=== PATIENT | male | born 1960 | race Hispanic/Latino ===

== ENCOUNTER 2017-03-10 16:53 | Inpatient (IN) | payer MEDICAID ==
[2017-03-10 17:11] VITALS: BMI 26.6
[2017-03-10] MEDS ORDERED: Vancomycin 500 mg Inj IVPB STA (17:15)
[2017-03-10] MEDS ORDERED: Piperacill/Tazo 3.375gm in Dex 3.375 GM/50 ML BAG IVPB STA (17:15)
--- NOTE | 2017-03-10 17:26 | C.PDOC ---
History Of Present Illness 56 year old female presents to the ED with concerns of an "infected [left] leg" for approximately three weeks. Patient states three weeks ago he fell and scrapped his left leg and leg pain has been worse over the last few days. He denies any fever, nausea, vomiting, or diarrhea. Time Seen by Provider: 03/10/17 17:11 Chief Complaint (Nursing): Abnormal Skin Integrity History Per: Patient History/Exam Limitations: no limitations Onset/Duration Of Symptoms: Persistent (3 weeks), Worse Since (the last few days ) Current Symptoms Are (Timing): Still Present Location Of Injury: Left: Leg Recent travel outside of the [place]: No Past Medical History Reviewed: Historical Data, Nursing Documentation, Vital Signs Vital Signs: Last Vital Signs Temp 98.3 F 03/10/17 17:12 Pulse 88 03/10/17 17:12 Resp 18 03/10/17 17:12 BP 101/63 03/10/17 17:12 Pulse Ox 96 03/10/17 17:30 - Medical History PMH: Asthma, CHF (3 YEARS), COPD, Diabetes, Emphysema, Fractures (LEFT SHOULDER ORIF LEFT ELBOW RIGHT SHOULDER), Gastritis (FROM MEDS), HTN, Peripheral Edema ( SOMETIMES NOT AT PRESENT), Pneumonia, Sleep Apnea (NO C PAP) Family History: States: Other Other Family History: non-contributory - Social History Hx Tobacco Use: No Hx Alcohol Use: Yes - Immunization History Hx Tetanus Toxoid Vaccination: Yes Hx Influenza Vaccination: Yes Hx Pneumococcal Vaccination: Yes Review Of Systems Except As Marked, All Systems Reviewed And Found Negative. Cardiovascular: Negative for: Chest Pain Respiratory: Negative for: Shortness of Breath Physical Exam - Physical Exam Appears: Non-toxic, No Acute Distress Skin: Warm, Dry Head: Atraumatic, Normacephalic Eye(s): bilateral: Normal Inspection, PERRL, EOMI Oral Mucosa: Moist Neck: Supple Chest: Symmetrical, No Deformity Cardiovascular: Rhythm Regular Respiratory: Normal Breath Sounds, No Accessory Muscle Use, No Rhonchi, No Wheezing Gastrointestinal/Abdominal: Soft, No Tenderness, No Distention, No Guarding, No Rebound Extremity: Normal ROM, No Tenderness, Capillary Refill (good capillary refill, less than 2 seconds ), No Swelling, Other (Pitting edema 2+ bilateral lower legs. 2x4 cm wound on the medial aspect of the left leg, purulent in discharge. Left leg with chronic appearing ulcers. Left lower leg erythema and warmth. ) Pulses: Left Dorsalis Pedis: Normal, Right Dorsalis Pedis: Normal Neurological/Psych: Oriented x3, Normal Speech, Normal Cognition, Normal Cranial Nerves, Normal Motor, Normal Sensation, Normal Reflexes ED Course And Treatment - Laboratory Results Result Diagrams: 03/10/17 18:01 03/10/17 18:01 O2 Sat by Pulse Oximetry: 96 (room air ) Medical Decision Making Medical Decision Makin disc w Dr Cortez who will admit. req art duplex tomorrow am Disposition - Disposition Disposition: HOSPITALIZED Disposition Time: 18:22 Condition: STABLE - Clinical Impression Clinical Impression: Wound infection, Cellulitis - Scribe Statement The provider has reviewed the documentation as recorded by the Scribe Marie Persaud All medical record entries made by the Tyroneibeddie were at my direction and personally dictated by me. I have reviewed the chart and agree that the record accurately reflects my personal performance of the history, physical exam, medical decision making, and the department course for this patient. I have also personally directed, reviewed, and agree with the discharge instructions and disposition.
[2017-03-10 18:08] LABS: BASO % 0.3 % (0.0-2.0); EOS # 0.1 K/uL (0.0-0.7); EOS % 0.7 % (0.0-4.0); HEMOGLOBIN 9.1 g/dL (12.0-18.0); LYMPH # 1.9 K/uL (1.0-4.3); LYMPH % 19.3 % (20.0-40.0); MEAN CORPUSCULAR HEMOGLOBIN 26.3 pg (27.0-31.0); MEAN CORPUSCULAR HGB CONC 31.6 g/dL (33.0-37.0); MEAN PLATELET VOLUME 7.2 fL (7.2-11.7); NEUT # 6.9 K/uL (1.8-7.0); NEUT % 69.7 % (50.0-75.0); RBC 3.46 Mil/uL (4.40-5.90); RED CELL DISTRIBUTION WIDTH 16.6 % (11.5-14.5)
[2017-03-10 18:09] LABS: MEAN CELL VOLUME 83.3 fL (80.0-94.0)
[2017-03-10] MEDS ORDERED: Albuterol 0.083% Inhal Sol (2.5 mg/3 mL) UD INH PRN (18:18)
[2017-03-10 18:21] LABS: ALBUMIN 3.7 g/dL (3.5-5.0)
[2017-03-10 18:23] LABS: GFR AFRICAN-AMERICAN > 60; GFR NON-AFRICAN AMERICAN > 60
[2017-03-10 18:24] LABS: ALB/GLOB RATIO 1.1 (1.0-2.1); ALT/SGPT 20 U/L (21-72); AST/SGOT 20 U/L (17-59); BLOOD UREA NITROGEN 24 mg/dL (9-20)
[2017-03-10 18:25] LABS: CALCIUM 9.4 mg/dl (8.6-10.4)
[2017-03-10] MEDS ORDERED: Oxycodone/Acetaminophen 5/325 mg Tab PO STA (18:32)
[2017-03-10] MEDS ORDERED: Oxycodone/Acetaminophen 5/325 mg Tab ONE ×2 (18:41→19:06)
[2017-03-10] MEDS ORDERED: Vancomycin 1 gm/NS 200 ml 1 GM/200 ML BAG IVPB ONE (19:00)
[2017-03-10] MEDS ORDERED: Albuterol-Ipratrop 3 mg / 0.5 (3 ml) UD ONE (19:26)
[2017-03-10 20:50] VITALS: RESP 20
[2017-03-10] MEDS ORDERED: Home Med 1 UNIT (Acetaminophen/Oxycodone Hydr [Percocet 10/325 Mg Tab] 1 TAB) PO PRN (21:45)
[2017-03-10] MEDS ORDERED: Enoxaparin 40 mg Syringe SC SCH (22:00)
[2017-03-10] MEDS: Enoxaparin 40 mg Syringe SC SCH (22:19)
[2017-03-10] MEDS: (Lantus) Insulin Glargine, Recombinant SC SCH (22:19)
[2017-03-10] MEDS: Oxycodone/Acetaminophen 5/325 mg Tab PO PRN (22:20)
[2017-03-10] MEDS: (Novolog) Insulin Aspart, Recombinant 100 u/ml 10 ml vial SC SCH (22:21)
[2017-03-11] MEDS: Piperacillin/Tazobact 3.375 GM in Sodium Chloride 100 ML IVPB SCH ×3 (02:09→19:19)
[2017-03-11] MEDS: Oxycodone/Acetaminophen 5/325 mg Tab PO PRN ×5 (02:14→21:50)
[2017-03-11] MEDS: Albuterol-Ipratrop 3 mg / 0.5 (3 ml) UD INH SCH ×3 (02:56→13:52)
[2017-03-11 08:44] LABS: URIC ACID 3.1 mg/dL (3.5-8.5)
[2017-03-11] MEDS: Enoxaparin 40 mg Syringe SC SCH (10:35)
[2017-03-11] MEDS: (Novolog) Insulin Aspart, Recombinant 100 u/ml 10 ml vial SC SCH ×4 (10:37→21:55)
--- NOTE | 2017-03-11 11:27 | CP.PCM.HP ---
History of Present Illness - History of Present Illness History of Present Illness: pt admited for infection leg s/p fall on cement stairs long area of deep abrasion see his dr got oral AB and LOCALAB GOT WORSE OOZING PUS Present on Admission - Present on Admission Any Indicators Present on Admission: Yes History of Uncontrolled Diabetes: Yes Review of Systems - Review of Systems Systems not reviewed;Unavailable: Acuity of Condition - Constitutional Constitutional: Fatigue - EENT Eyes: As Per HPI Ears: As Per HPI Nose/Mouth/Throat: As Per HPI - Cardiovascular Cardiovascular: Dyspnea - Respiratory Respiratory: Dyspnea on Exertion - Gastrointestinal Gastrointestinal: As Per HPI - Genitourinary Additional comments: CA BLADDER - Musculoskeletal Musculoskeletal: Limited Range of Motion, Stiffness Additional comments: HIP PAIN DIFICULT AMBULATION - Integumentary Integumentary: Erythema, Non-Healing Lesions, Skin Ulcer, Wounds Additional comments: LEG - Neurological Neurological: Frequent Falls - Psychiatric Psychiatric: As Per HPI - Endocrine Endocrine: As Per HPI - Hematologic/Lymphatic Hematologic: As Per HPI Past Patient History - Infectious Disease Hx of Infectious Diseases: None - Past Medical History & Family History Past Medical History?: Yes - Past Social History Smoking Status: Former Smoker - CARDIAC Hx Congestive Heart Failure: Yes (3 YEARS) Hx Hypertension: Yes Hx Peripheral Edema: Yes (SOMETIMES NOT AT PRESENT) - PULMONARY Hx Asthma: Yes Hx Chronic Obstructive Pulmonary Disease (COPD): Yes Hx Emphysema: Yes Hx Pneumonia: Yes Hx Sleep Apnea: Yes (NO C PAP) - NEUROLOGICAL Hx Neurological Disorder: No - HEENT Hx HEENT Problems: Yes - RENAL Hx Chronic Kidney Disease: No - ENDOCRINE/METABOLIC Hx Endocrine Disorders: Yes Hx Diabetes Mellitus Type 2: Yes - HEMATOLOGICAL/ONCOLOGICAL Hx Blood Disorders: Yes Hx Cancer: Yes (BLADDER) - INTEGUMENTARY Hx Dermatological Problems: Yes (DISCOLORED LOWER EXTREMITIES ) - MUSCULOSKELETAL/RHEUMATOLOGICAL Hx Falls: Yes - GASTROINTESTINAL Hx Gastritis: Yes (FROM MEDS) - GENITOURINARY/GYNECOLOGICAL Hx Genitourinary Disorders: Yes (SEE COMMENT) Hx Bladder Cancer: Yes Hx Hematuria: Yes Other/Comment: BLADDER CANCER - PSYCHIATRIC Hx Substance Use: No - SURGICAL HISTORY Hx Surgeries: Yes Hx Open Reduction Internal Fixation: Yes (LEFT SHOULDER LEFT ELBOW REMOVAL HARDWARE) Hx Orthopedic Surgery: Yes (LEFT KNEE) Other/Comment: TURP; HX: CYSTO WITH BLADDER BX. AND FULG. - ANESTHESIA Hx Anesthesia: Yes Hx Anesthesia Reactions: Yes (DIFFICULTY TO AROUSE BUT WAS DISCHARGED) Hx Malignant Hyperthermia: No Meds Allergies/Adverse Reactions: Allergies Allergy/AdvReac Type Severity Reaction Status Date / Time cefuroxime Allergy RASH Verified 03/10/17 17:09 cephalexin Allergy RASH Verified 03/10/17 17:09 clarithromycin Allergy RASH Verified 03/10/17 17:09 levofloxacin Allergy RASH Verified 03/10/17 17:09 moxifloxacin Allergy RASH Verified 03/10/17 17:09 Physical Exam - Constitutional Appears: In Acute Distress - Head Exam Head Exam: ATRAUMATIC - Eye Exam Eye Exam: Normal appearance Pupil Exam: NORMAL ACCOMODATION - ENT Exam ENT Exam: Mucous Membranes Moist - Neck Exam Neck exam: Positive for: Full Rom - Respiratory Exam Respiratory Exam: Decreased Breath Sounds - Cardiovascular Exam Cardiovascular Exam: REGULAR RHYTHM - GI/Abdominal Exam GI & Abdominal Exam: Mass, Normal Bowel Sounds - Rectal Exam Rectal Exam: NORMAL INSPECTION - Extremities Exam Additional comments: HIP ARTHRITIS USE CAN TOHELP WALKING - Back Exam Back exam: NORMAL INSPECTION - Neurological Exam Neurological exam: Oriented x3 - Psychiatric Exam Psychiatric exam: Depressed - Skin Skin Exam: Erythema, Mottled, Pallor Additional comments: LEGS Results - Vital Signs Recent Vital Signs: Last Vital Signs Temp 97.4 F L 03/11/17 00:00 Pulse 72 03/11/17 00:00 Resp 20 03/11/17 00:00 BP 129/73 03/11/17 00:00 Pulse Ox 96 03/11/17 00:00 - Labs Result Diagrams: 03/10/17 18:01 03/10/17 18:01 Labs: Laboratory Results - last 24 hr 03/10/17 03/11/17 03/11/17 21:51 07:32 08:23 POC Glucose (mg/dL) 114 H 113 H Uric Acid 3.1 L Triglycerides 125 Cholesterol 119 LDL Cholesterol Direct 66 HDL Cholesterol 24 L Assessment & Plan - Assessment and Plan (Free Text) Assessment: INFECTED WOUNDS LEG S/P FALL DM HIP ARTHRITIS CA BLADER RECURANCE Plan: PER ORDERS - Date & Time Date: 03/11/17 Time: 11:44
[2017-03-11] MEDS ORDERED: Iohexol 240 (50 ml) PO ONE (13:15)
[2017-03-11] MEDS ORDERED: Albuterol 0.083% Inhal Sol (2.5 mg/3 mL) UD INH PRN (16:22)
--- NOTE | 2017-03-11 17:50 | CP.PCM.CON ---
History of Present Illness - History of Present Illness History of Present Illness: Surgery Consult note. Dr. Berger 56yo M with PMHx of Asthma, CHF, COPD, DM, Emphysema, HTN, Sleep Apnea here for evaluation of bilateral lower extremity wounds. Patient states that he had a mechanical fall and he scraped both of his lower legs on the floor, Left worse than the right. She saw a physician as an out-patient and was given oral and topical antibiotics, however, he has not obtained any improvement. Both lower extremities became gradually worse and he came into the [facility] ED. He denies any Fevers or chills. Does state mild purulent discharge, erythema, and mild tenderness. No N/V/D. No Abdominal pain. No Chest pain/SOB. PMHx: Asthma, CHF, COPD, DM, Emphysema (uses home O2), HTN, Sleep Apnea (does not use CPAP) PSHx: Left Shoulder ORIF, Left Elbow ORIF, Left wrist ORIF, Left knee arthroscopy for torn miniscus. Family Hx: Denies Social Hx: Denies any tobacco use. Occasional ETOH use. Denies any illicit drug use. Allergy: Cefuroxime, Cephalexin, Clarithromycin, Levofloxacin, Moxifloxicin Review of Systems - Review of Systems All systems: reviewed and no additional remarkable complaints except - Constitutional Constitutional: absent: Chills, Fever - EENT Ears: absent: Dizziness Nose/Mouth/Throat: absent: Epistaxis, Nose Pain - Cardiovascular Cardiovascular: absent: Chest Pain, Dyspnea - Respiratory Respiratory: absent: Cough, Dyspnea - Gastrointestinal Gastrointestinal: absent: Abdominal Pain, Nausea, Vomiting - Integumentary Integumentary: Erythema, Wounds Additional comments: Bilateral lower extremity wounds Past Patient History - Infectious Disease Hx of Infectious Diseases: None - Past Medical History & Family History Past Medical History?: Yes - Past Social History Smoking Status: Former Smoker - CARDIAC Hx Congestive Heart Failure: Yes (3 YEARS) Hx Hypertension: Yes Hx Peripheral Edema: Yes (SOMETIMES NOT AT PRESENT) - PULMONARY Hx Asthma: Yes Hx Chronic Obstructive Pulmonary Disease (COPD): Yes Hx Emphysema: Yes Hx Pneumonia: Yes Hx Sleep Apnea: Yes (NO C PAP) - NEUROLOGICAL Hx Neurological Disorder: No - HEENT Hx HEENT Problems: Yes - RENAL Hx Chronic Kidney Disease: No - ENDOCRINE/METABOLIC Hx Endocrine Disorders: Yes Hx Diabetes Mellitus Type 2: Yes - HEMATOLOGICAL/ONCOLOGICAL Hx Blood Disorders: Yes Hx Cancer: Yes (BLADDER) - INTEGUMENTARY Hx Dermatological Problems: Yes (DISCOLORED LOWER EXTREMITIES ) - MUSCULOSKELETAL/RHEUMATOLOGICAL Hx Falls: Yes - GASTROINTESTINAL Hx Gastritis: Yes (FROM MEDS) - GENITOURINARY/GYNECOLOGICAL Hx Genitourinary Disorders: Yes (SEE COMMENT) Hx Bladder Cancer: Yes Hx Hematuria: Yes Other/Comment: BLADDER CANCER - PSYCHIATRIC Hx Substance Use: No - SURGICAL HISTORY Hx Surgeries: Yes Hx Open Reduction Internal Fixation: Yes (LEFT SHOULDER LEFT ELBOW REMOVAL HARDWARE) Hx Orthopedic Surgery: Yes (LEFT KNEE) Other/Comment: TURP; HX: CYSTO WITH BLADDER BX. AND FULG. - ANESTHESIA Hx Anesthesia: Yes Hx Anesthesia Reactions: Yes (DIFFICULTY TO AROUSE BUT WAS DISCHARGED) Hx Malignant Hyperthermia: No Meds Allergies/Adverse Reactions: Allergies Allergy/AdvReac Type Severity Reaction Status Date / Time cefuroxime Allergy RASH Verified 03/10/17 17:09 cephalexin Allergy RASH Verified 03/10/17 17:09 clarithromycin Allergy RASH Verified 03/10/17 17:09 levofloxacin Allergy RASH Verified 03/10/17 17:09 moxifloxacin Allergy RASH Verified 03/10/17 17:09 - Medications Medications: Current Medications Albuterol Sulfate (Albuterol 0.083% Inhal Jacey (2.5 Mg/3 Ml) Ud) 2.5 mg INH RQ6 PRN PRN Reason: Wheezing Albuterol/Ipratropium (Duoneb 3 Mg/0.5 Mg (3 Ml) Ud) 3 ml INH RQ6 [facility] Last Admin: 03/11/17 13:52 Dose: 3 ml Allopurinol (Zyloprim) 300 mg PO DAILY [facility] Last Admin: 03/11/17 10:35 Dose: 300 mg Enoxaparin Sodium (Lovenox) 40 mg SC DAILY [facility] Last Admin: 03/11/17 10:35 Dose: 40 mg Ergocalciferol (Drisdol 50,000 Intl Units Cap) 1 cap PO QWK [facility] Famotidine (Pepcid) 20 mg PO HS [facility] Last Admin: 03/10/17 22:20 Dose: 20 mg Vancomycin HCl 1,000 mg/ (Sodium Chloride) 250 mls @ 166.6 mls/hr IVPB Q12H [facility] Last Admin: 03/11/17 17:06 Dose: 166.6 mls/hr Piperacillin Sod/Tazobactam (Sod 3.375 gm/ Sodium Chloride) 100 mls @ 200 mls/ hr IVPB Q8H [facility] Last Admin: 03/11/17 10:51 Dose: 200 mls/hr Insulin Aspart (Novolog) 0 unit SC ACHS [facility] PRN Reason: Protocol Last Admin: 03/11/17 17:08 Dose: Not Given Insulin Glargine (Lantus) 5 unit SC HS [facility] Last Admin: 03/10/17 22:19 Dose: 5 unit Montelukast Sodium (Singulair) 10 mg PO DAILY [facility] Last Admin: 03/11/17 10:35 Dose: 10 mg Oxycodone/Acetaminophen (Percocet 5/325 Mg Tab) 1 tab PO Q4 PRN PRN Reason: Pain, moderate (4-7) Last Admin: 03/11/17 17:03 Dose: 1 tab Pneumococcal Polyvalent Vaccine (Pneumovax 23 Vaccine) 0.5 ml IM .ONCE ONE Stop: 03/12/17 10:01 Physical Exam - Constitutional Appears: Well, No Acute Distress Additional comments: Disheveled general appearance. Poor hygiene - Head Exam Head Exam: ATRAUMATIC, NORMAL INSPECTION, NORMOCEPHALIC - Eye Exam Eye Exam: EOMI - ENT Exam ENT Exam: Mucous Membranes Moist - Respiratory Exam Respiratory Exam: NORMAL BREATHING PATTERN - GI/Abdominal Exam GI & Abdominal Exam: Soft. absent: Distended, Guarding, Rebound, Rigid, Tenderness - Extremities Exam Extremities exam: Positive for: pedal edema, pedal pulses present (DP pulses intact bilaterally). Negative for: calf tenderness Additional comments: Left lower extremity wound to the posterior calf. Abrasions and skin ulcers. Few areas with serrous/purulent-tinged discharge. Diffusely indurated. Diffusely erythematous. No fluctuance appreciated. Right lower extremity wound with few abrasions compared to left. Mild induration. Mild erythema. No flucuance appreciated. Increased pigmentation to bilateral lower extremity from chen up to the level of the tibial tuberosity bilaterally. - Neurological Exam Neurological exam: Alert, Oriented x3 - Psychiatric Exam Psychiatric exam: Normal Affect, Normal Mood Results - Vital Signs Recent Vital Signs: Last Vital Signs Temp 98.5 F 03/11/17 15:00 Pulse 86 03/11/17 15:00 Resp 20 03/11/17 15:00 BP 126/65 03/11/17 15:00 Pulse Ox 94 L 03/11/17 15:00 - Labs Result Diagrams: 03/10/17 18:01 03/10/17 18:01 Labs: Laboratory Results - last 24 hr 03/10/17 03/11/17 03/11/17 21:51 07:32 08:23 POC Glucose (mg/dL) 114 H 113 H Uric Acid 3.1 L Triglycerides 125 Cholesterol 119 LDL Cholesterol Direct 66 HDL Cholesterol 24 L 03/11/17 03/11/17 11:36 16:36 POC Glucose (mg/dL) 110 124 H Uric Acid Triglycerides Cholesterol LDL Cholesterol Direct HDL Cholesterol Assessment & Plan - Assessment and Plan (Free Text) Assessment: 56yo M with bilateral lower extremity wounds - Continue wound care daily. - f/u Wound cultures, Blood cultures - f/u Arterial Duplex study - Continue IV Abx - Pain management Discussed case with Dr. Celine Riggins PGY1 surgery pager: [phone]
--- NOTE | 2017-03-11 18:26 | CT ---
EXAM: CT Abdomen and Pelvis With Intravenous Contrast CLINICAL HISTORY: 56 years old, male; Signs and symptoms; Mass, lump, or swelling; Rlq; Additional info: Ca blader mass rlq TECHNIQUE: Axial computed tomography images of the abdomen and pelvis with intravenous contrast. This CT exam was performed using one or more of the following dose reduction techniques: automated exposure control, adjustment of the mA and/or kV according to patient size, and/or use of iterative reconstruction technique. Coronal and sagittal reformatted images were created and reviewed. CONTRAST: 80 mL of [id number] administered intravenously. EXAM DATE/TIME: Exam ordered 03/11/2017 11:34 AM COMPARISON: No relevant prior studies available. FINDINGS: Lower thorax: ABDOMEN: Liver: Unremarkable. No mass. Gallbladder and bile ducts: Unremarkable. No calcified stones. No ductal dilation. Pancreas: Unremarkable. No mass. No ductal dilation. Spleen: Unremarkable. No splenomegaly. Adrenals: Unremarkable. No mass. Kidneys and ureters: Calcifications in the renal case bilaterally appear vascular in nature.No solid mass. No hydronephrosis. Stomach and bowel: There are scattered colonic diverticula. No obstruction. No mucosal thickening. Appendix: No findings to suggest acute appendicitis. PELVIS: Bladder: Unremarkable. No mass. Reproductive: Unremarkable as visualized. ABDOMEN and PELVIS: Intraperitoneal space: Unremarkable. No free air. No significant fluid collection. Bones/joints: There is flattening and osteonecrosis noted of the right femoral head. Femoral head is subluxed superiorly and laterally. There are Marginal osteophytes.. On the left there is osteonecrosis of the femoral head with underlying compression fracture of the femoral head. There is marked joint space narrowing. Subchondral cyst formation is noted on the acetabular side of both hip joints. There are bilateral hip joint effusions, right side greater than left. There is a healed rib fracture of the left 10th rib. Soft tissues: The subcutaneous air is noted within the there is external iliac fat of the anterior abdominal wall at the level the umbilicus. Vasculature: The calcifications are noted along the course of the cavernosal artery the penis. Phleboliths are along the left spermatic cord No abdominal aortic aneurysm. Lymph nodes: Adenopathy is noted within the groin bilaterally. The dominant chika mass in the left groin measures 2.4 x 1.6 x 5.2 cm. The dominant lymph node on the right measures 3.3 x 1.5 x 1.8 cm. IMPRESSION: 1. Advanced osteoarthritis of both hip joints with superolateral dislocation of the right hip, bilateral joint effusions and osteonecrosis with compression fracture of the femoral heads. 2. Scattered colonic diverticula.
[2017-03-11] MEDS: (Lantus) Insulin Glargine, Recombinant SC SCH (21:54)
[2017-03-12] MEDS: Piperacillin/Tazobact 3.375 GM in Sodium Chloride 100 ML IVPB SCH ×3 (01:10→17:53)
[2017-03-12] MEDS: Albuterol-Ipratrop 3 mg / 0.5 (3 ml) UD INH SCH ×4 (01:23→20:07)
[2017-03-12] MEDS: Oxycodone/Acetaminophen 5/325 mg Tab PO PRN ×6 (01:55→22:27)
[2017-03-12] MEDS: (Novolog) Insulin Aspart, Recombinant 100 u/ml 10 ml vial SC SCH ×4 (08:07→22:04)
[2017-03-12] MEDS ORDERED: Pneumococcal 23-Valent Vaccine IM ONE (10:00)
[2017-03-12] MEDS: Enoxaparin 40 mg Syringe SC SCH (10:41)
--- NOTE | 2017-03-12 13:55 | CP.PCM.PN ---
Subjective - Date & Time of Evaluation Date of Evaluation: 03/12/17 Time of Evaluation: 13:52 - Subjective Subjective: pt in severe pain unable to ambulate wound dressed still on iv antbiotics Objective - Vital Signs/Intake and Output Vital Signs (last 24 hours): Temp Pulse Resp BP Pulse Ox 98.3 F 87 20 143/77 97 03/12/17 08:00 03/12/17 08:00 03/12/17 08:00 03/12/17 08:00 03/12/17 08:00 Intake and Output: 03/12/17 03/12/17 06:59 18:59 Intake Total 1340 Output Total 500 Balance 840 - Medications Medications: Current Medications Albuterol/Ipratropium (Duoneb 3 Mg/0.5 Mg (3 Ml) Ud) 3 ml INH RQ6 [facility] Last Admin: 03/12/17 09:08 Dose: 3 ml Allopurinol (Zyloprim) 300 mg PO DAILY [facility] Last Admin: 03/12/17 10:41 Dose: 300 mg Enoxaparin Sodium (Lovenox) 40 mg SC DAILY [facility] Last Admin: 03/12/17 10:41 Dose: 40 mg Ergocalciferol (Drisdol 50,000 Intl Units Cap) 1 cap PO QWK [facility] Famotidine (Pepcid) 20 mg PO HS [facility] Last Admin: 03/11/17 21:50 Dose: 20 mg Vancomycin HCl 1,000 mg/ (Sodium Chloride) 250 mls @ 166.6 mls/hr IVPB Q12H [facility] Last Admin: 03/12/17 05:47 Dose: 166.6 mls/hr Piperacillin Sod/Tazobactam (Sod 3.375 gm/ Sodium Chloride) 100 mls @ 200 mls/ hr IVPB Q8H [facility] Last Admin: 03/12/17 10:40 Dose: 200 mls/hr Insulin Aspart (Novolog) 0 unit SC [facility] PRN Reason: Protocol Last Admin: 03/12/17 13:10 Dose: Not Given Insulin Glargine (Lantus) 5 unit SC HS [facility] Last Admin: 03/11/17 21:54 Dose: 5 unit Montelukast Sodium (Singulair) 10 mg PO DAILY [facility] Last Admin: 03/12/17 10:41 Dose: 10 mg - Constitutional Appears: In Acute Distress - Head Exam Head Exam: NORMAL INSPECTION - Eye Exam Eye Exam: Normal appearance Pupil Exam: NORMAL ACCOMODATION - ENT Exam ENT Exam: Mucous Membranes Moist - Neck Exam Neck Exam: Full ROM - Respiratory Exam Respiratory Exam: Clear to Ausculation Bilateral - Cardiovascular Exam Cardiovascular Exam: REGULAR RHYTHM - GI/Abdominal Exam GI & Abdominal Exam: Normal Bowel Sounds - Rectal Exam Rectal Exam: NORMAL INSPECTION - Extremities Exam Additional comments: abrasion celulitis infection leg - Back Exam Back Exam: CVA tenderness (L) - Neurological Exam Neurological Exam: Abnormal Gait Assessment and Plan - Assessment and Plan (Free Text) Assessment: severe pain hip infection leg copd Plan: as per orders
--- NOTE | 2017-03-12 15:31 | CP.PCM.CON ---
History of Present Illness - History of Present Illness History of Present Illness: 56yo M with PMHx of Asthma, CHF, COPD, DM, Emphysema, HTN, Sleep Apnea here for evaluation of bilateral lower extremity wounds. Patient states that he had a mechanical fall and he scraped both of his lower legs on the floor, Left worse than the right. She saw a physician as an out-patient and was given oral and topical antibiotics, however, he has not obtained any improvement. Both lower extremities became gradually worse and he came into the [facility] ED. He denies any Fevers or chills. Does state mild purulent discharge, erythema, and mild tenderness. No N/V/D. No Abdominal pain. No Chest pain/SOB. ID consulted for IV antibiotics PMHx: Asthma, CHF, COPD, DM, Emphysema (uses home O2), HTN, Sleep Apnea (does not use CPAP) PSHx: Left Shoulder ORIF, Left Elbow ORIF, Left wrist ORIF, Left knee arthroscopy for torn miniscus. Family Hx: Denies Social Hx: Denies any tobacco use. Occasional ETOH use. Denies any illicit drug use. Allergy: Cefuroxime, Cephalexin, Clarithromycin, Levofloxacin, Moxifloxicin Review of Systems - Constitutional Constitutional: As Per HPI - EENT Eyes: absent: As Per HPI, Blind Spots, Blurred Vision, Change in Vision, Decreased Night Vision, Diplopia, Discharge, Dry Eye, Exophthalmos, Floaters, Irritation, Itchy Eyes, Loss of Peripheral Vision, Pain, Photophobia, Requires Corrective Lenses, Sees Flashes, Spots in Vision, Tunnel Vision, Other Visual Disturbances, Loss of Vision, Other Ears: absent: As Per HPI, Decreased Hearing, Ear Discharge, Ear Pain, Tinnitus, Abnormal Hearing, Disequilibrium, Dizziness, Other Nose/Mouth/Throat: absent: As Per HPI, Epistaxis, Nasal Congestion, Nasal Discharge, Nasal Obstruction, Nasal Trauma, Nose Pain, Post Nasal Drip, Sinus Pain, Sinus Pressure, Bleeding Gums, Change in Voice, Dental Pain, Dry Mouth, Dysphagia, Halitosis, Hoarsness, Lip Swelling, Mouth Lesions, Mouth Pain, Odynophagia, Sore Throat, Throat Swelling, Tongue Swelling, Facial Pain, Neck Pain, Neck Mass, Other - Cardiovascular Cardiovascular: absent: As Per HPI, Acrocyanosis, Chest Pain, Chest Pain at Rest , Chest Pain with Activity, Claudication, Diaphoresis, Dyspnea, Dyspnea on Exertion, Edema, Irregular Heart Rhythm, Pain Radiating to Arm/Neck/Jaw, Leg Edema, Leg Ulcers, Lightheadedness, Orthopnea, Palpitations, Paroxysmal Nocturnal Dyspnea, Pedal Edema, Radiating Pain, Rapid Heart Rate, Slow Heart Rate, Syncope, Other - Respiratory Respiratory: absent: As Per HPI, Cough, Dyspnea, Hemoptysis, Dyspnea on Exertion , Wheezing, Snoring, Stridor, Pain on Inspiration, Chest Congestion, Excessive Mucous Production, Change in Mucous Color, Pain with Coughing, Other - Gastrointestinal Gastrointestinal: absent: As Per HPI, Abdominal Pain, Belching, Bloating, Change in Bowel Habits, Change in Stool Character, Coffee Ground Emesis, Constipation, Cramping, Diarrhea, Dyspepsia, Dysphagia, Early Satiety, Excessive Flatus, Fecal Incontinence, Heartburn, Hematemesis, Hematochezia, Loose Stools, Melena, Nausea, Odynophagia, Temesmus, Vomiting, Other - Genitourinary Genitourinary: absent: As Per HPI, Change in Urinary Stream, Difficulty Urinating, Dysuria, Flank Pain, Hematuria, Pyuria, Nocturia, Urinary Incontinence, Urinary Frequency, Urinary Hesitance, Urinary Urgency, Voiding Freq/Small Amts, Freq UTI, Hx Renal/Bladder Calculi, Hx /Renal Surgery, Bladder Distension, Other - Integumentary Integumentary: As Per HPI - Neurological Neurological: absent: As Per HPI, Abnormal Gait, Abnormal Hearing, Abnormal Movements, Abnormal Speech, Behavioral Changes, Burning Sensations, Confusion, Convulsions, Disequilibrium, Dizziness, Numbness, Focal Weakness, Frequent Falls , Headaches, Lack of Coordination, Loss of Vision, Memory Loss, Paresthesias, Radicular Pain, Restless Legs, Sensory Deficit, Syncope, Tingling, Tremor, Vertigo, Weakness, Other Visual Disturbances, Other - Psychiatric Psychiatric: absent: As Per HPI, Abnormal Sleep Pattern, Anhedonia, Anxiety, Auditory Hallucinations, Behavioral Changes, Change in Appetite, Change in Libido, Confusion, Depression, Difficulty Concentrating, Hallucinations, Homicidal Ideation, Hopelessness, Irritability, Memory Loss, Mood Swings, Panic Attacks, Paranoia, Suicidal Ideation, Visual Hallucinations, Tactile Hallucinations, Other - Endocrine Endocrine: absent: As Per HPI, Change in Body Appearance, Change in Libido, Cold Intolorance, Deepening of Voice, Excessive Sweating, Fatigue, Flushing, Heat Intolorance, Increase in Ring/Shoe/Hat Size, Palpitations, Polydipsia, Polyphagia, Polyuria, Other - Hematologic/Lymphatic Hematologic: absent: As Per HPI, Easy Bleeding, Easy Bruising, Lymphadenopathy, Other Past Patient History - Infectious Disease Hx of Infectious Diseases: None - Past Medical History & Family History Past Medical History?: Yes - Past Social History Smoking Status: Former Smoker - CARDIAC Hx Congestive Heart Failure: Yes (3 YEARS) Hx Hypertension: Yes Hx Peripheral Edema: Yes (SOMETIMES NOT AT PRESENT) - PULMONARY Hx Asthma: Yes Hx Chronic Obstructive Pulmonary Disease (COPD): Yes Hx Emphysema: Yes Hx Pneumonia: Yes Hx Sleep Apnea: Yes (NO C PAP) - NEUROLOGICAL Hx Neurological Disorder: No - HEENT Hx HEENT Problems: Yes - RENAL Hx Chronic Kidney Disease: No - ENDOCRINE/METABOLIC Hx Endocrine Disorders: Yes Hx Diabetes Mellitus Type 2: Yes - HEMATOLOGICAL/ONCOLOGICAL Hx Blood Disorders: Yes Hx Cancer: Yes (BLADDER) - INTEGUMENTARY Hx Dermatological Problems: Yes (DISCOLORED LOWER EXTREMITIES ) - MUSCULOSKELETAL/RHEUMATOLOGICAL Hx Falls: Yes - GASTROINTESTINAL Hx Gastritis: Yes (FROM MEDS) - GENITOURINARY/GYNECOLOGICAL Hx Genitourinary Disorders: Yes (SEE COMMENT) Hx Bladder Cancer: Yes Hx Hematuria: Yes Other/Comment: BLADDER CANCER - PSYCHIATRIC Hx Substance Use: No - SURGICAL HISTORY Hx Surgeries: Yes Hx Open Reduction Internal Fixation: Yes (LEFT SHOULDER LEFT ELBOW REMOVAL HARDWARE) Hx Orthopedic Surgery: Yes (LEFT KNEE) Other/Comment: TURP; HX: CYSTO WITH BLADDER BX. AND FULG. - ANESTHESIA Hx Anesthesia: Yes Hx Anesthesia Reactions: Yes (DIFFICULTY TO AROUSE BUT WAS DISCHARGED) Hx Malignant Hyperthermia: No Meds Allergies/Adverse Reactions: Allergies Allergy/AdvReac Type Severity Reaction Status Date / Time cefuroxime Allergy RASH Verified 03/10/17 17:09 cephalexin Allergy RASH Verified 03/10/17 17:09 clarithromycin Allergy RASH Verified 03/10/17 17:09 levofloxacin Allergy RASH Verified 03/10/17 17:09 moxifloxacin Allergy RASH Verified 03/10/17 17:09 - Medications Medications: Current Medications Albuterol/Ipratropium (Duoneb 3 Mg/0.5 Mg (3 Ml) Ud) 3 ml INH RQ6 [facility] Last Admin: 03/12/17 09:08 Dose: 3 ml Allopurinol (Zyloprim) 300 mg PO DAILY [facility] Last Admin: 03/12/17 10:41 Dose: 300 mg Enoxaparin Sodium (Lovenox) 40 mg SC DAILY [facility] Last Admin: 03/12/17 10:41 Dose: 40 mg Ergocalciferol (Drisdol 50,000 Intl Units Cap) 1 cap PO QWK [facility] Famotidine (Pepcid) 20 mg PO HS [facility] Last Admin: 03/11/17 21:50 Dose: 20 mg Vancomycin HCl 1,000 mg/ (Sodium Chloride) 250 mls @ 166.6 mls/hr IVPB Q12H [facility] Last Admin: 03/12/17 05:47 Dose: 166.6 mls/hr Piperacillin Sod/Tazobactam (Sod 3.375 gm/ Sodium Chloride) 100 mls @ 200 mls/ hr IVPB Q8H [facility] Last Admin: 03/12/17 10:40 Dose: 200 mls/hr Insulin Aspart (Novolog) 0 unit SC ACHS [facility] PRN Reason: Protocol Last Admin: 03/12/17 13:10 Dose: Not Given Insulin Glargine (Lantus) 5 unit SC HS [facility] Last Admin: 03/11/17 21:54 Dose: 5 unit Montelukast Sodium (Singulair) 10 mg PO DAILY [facility] Last Admin: 03/12/17 10:41 Dose: 10 mg Oxycodone/Acetaminophen (Percocet 5/325 Mg Tab) 2 tab PO Q4H PRN PRN Reason: Pain, severe (8-10) Stop: 03/15/17 13:51 Last Admin: 03/12/17 14:35 Dose: 2 tab Physical Exam - Constitutional Appears: Non-toxic, Chronically Ill - Head Exam Head Exam: ATRAUMATIC, NORMAL INSPECTION, NORMOCEPHALIC - Eye Exam Eye Exam: EOMI, PERRL. absent: Scleral icterus - ENT Exam ENT Exam: Mucous Membranes Dry, Normal External Ear Exam, Normal Oropharynx - Neck Exam Neck exam: Negative for: Lymphadenopathy, Thyromegaly - Respiratory Exam Respiratory Exam: Decreased Breath Sounds, Clear to Auscultation Bilateral - Cardiovascular Exam Cardiovascular Exam: REGULAR RHYTHM, +S1, +S2 - GI/Abdominal Exam GI & Abdominal Exam: Diminished Bowel Sounds, Distended, Soft. absent: Guarding , Rebound, Rigid, Tenderness - Rectal Exam Rectal Exam: Deferred - Exam Exam: NORMAL INSPECTION - Extremities Exam Extremities exam: Positive for: pedal edema, tenderness. Negative for: calf tenderness, pedal pulses present Additional comments: cellulitis/ ulceration LLE - Back Exam Back exam: absent: CVA tenderness (L), CVA tenderness (R) - Neurological Exam Neurological exam: Alert, CN II-XII Intact, Oriented x3, Reflexes Normal - Psychiatric Exam Psychiatric exam: Normal Mood - Skin Skin Exam: Dry Results - Vital Signs Recent Vital Signs: Last Vital Signs Temp 98.3 F 03/12/17 08:00 Pulse 87 03/12/17 08:00 Resp 20 03/12/17 08:00 BP 143/77 03/12/17 08:00 Pulse Ox 97 03/12/17 08:00 - Labs Result Diagrams: 03/10/17 18:01 03/10/17 18:01 Labs: Laboratory Results - last 24 hr 03/11/17 03/11/17 03/11/17 08:23 16:36 21:29 POC Glucose (mg/dL) 124 H 127 H Hemoglobin A1c 6.2 03/12/17 03/12/17 07:47 11:18 POC Glucose (mg/dL) 114 H 134 H Hemoglobin A1c Assessment & Plan (1) Cellulitis Status: Acute (2) Wound infection Status: Acute (3) Alcohol abuse Status: Acute (4) COPD (chronic obstructive pulmonary disease) Status: Acute (5) Emphysema of lung Status: Acute (6) HTN (hypertension) Status: Acute - Assessment and Plan (Free Text) Assessment: await cultures cont wound care and IV rx
[2017-03-12 16:54] LABS: IRON 57 ug/dL (49-181)
[2017-03-12 17:03] LABS: % IRON SATURATION 20 (20-55); TOTAL IRON BINDING CAPACITY 283 ug/dL (250-450)
[2017-03-12] MEDS: (Lantus) Insulin Glargine, Recombinant SC SCH (22:04)
[2017-03-13] MEDS: Piperacillin/Tazobact 3.375 GM in Sodium Chloride 100 ML IVPB SCH ×3 (02:35→17:55)
[2017-03-13] MEDS: Oxycodone/Acetaminophen 5/325 mg Tab PO PRN ×5 (02:38→19:53)
[2017-03-13] MEDS: Albuterol-Ipratrop 3 mg / 0.5 (3 ml) UD INH SCH ×4 (02:45→19:30)
--- NOTE | 2017-03-13 06:40 | CP.PCM.PN ---
Subjective - Date & Time of Evaluation Date of Evaluation: 03/13/17 Time of Evaluation: 07:00 - Subjective Subjective: VASCULAR SURGERY CONSULT NOTE FOR DR. LARES Patient seen and examined at bedside. Patient complains of right hip pain and states he does not have pain in his lower legs. Has dressings on bilateral lower legs. Objective - Vital Signs/Intake and Output Vital Signs (last 24 hours): Temp Pulse Resp BP Pulse Ox 97.7 F 72 20 125/67 98 03/13/17 00:00 03/13/17 00:00 03/13/17 00:00 03/13/17 00:00 03/13/17 00:00 Intake and Output: 03/12/17 03/13/17 18:59 06:59 Intake Total 340 1290 Output Total 400 Balance 340 890 - Medications Medications: Current Medications Albuterol/Ipratropium (Duoneb 3 Mg/0.5 Mg (3 Ml) Ud) 3 ml INH RQ6 [facility] Last Admin: 03/13/17 02:45 Dose: Not Given Allopurinol (Zyloprim) 300 mg PO DAILY [facility] Last Admin: 03/12/17 10:41 Dose: 300 mg Enoxaparin Sodium (Lovenox) 40 mg SC DAILY [facility] Last Admin: 03/12/17 10:41 Dose: 40 mg Ergocalciferol (Drisdol 50,000 Intl Units Cap) 1 cap PO QWK [facility] Famotidine (Pepcid) 20 mg PO HS [facility] Last Admin: 03/12/17 22:06 Dose: 20 mg Vancomycin HCl 1,000 mg/ (Sodium Chloride) 250 mls @ 166.6 mls/hr IVPB Q12H [facility] Last Admin: 03/13/17 05:07 Dose: 166.6 mls/hr Piperacillin Sod/Tazobactam (Sod 3.375 gm/ Sodium Chloride) 100 mls @ 200 mls/ hr IVPB Q8H [facility] Last Admin: 03/13/17 02:35 Dose: 200 mls/hr Insulin Aspart (Novolog) 0 unit SC ACHS [facility] PRN Reason: Protocol Last Admin: 03/12/17 22:04 Dose: Not Given Insulin Glargine (Lantus) 5 unit SC HS [facility] Last Admin: 03/12/17 22:04 Dose: Not Given Montelukast Sodium (Singulair) 10 mg PO DAILY [facility] Last Admin: 03/12/17 10:41 Dose: 10 mg Oxycodone/Acetaminophen (Percocet 5/325 Mg Tab) 2 tab PO Q4H PRN PRN Reason: Pain, severe (8-10) Stop: 03/15/17 13:51 Last Admin: 03/13/17 02:38 Dose: 2 tab Thiamine HCl (Vitamin B1 Tab) 100 mg PO DAILY [facility] Last Admin: 03/12/17 18:02 Dose: 100 mg - Constitutional Appears: Non-toxic, No Acute Distress - Eye Exam Eye Exam: EOMI, Normal appearance - Respiratory Exam Respiratory Exam: NORMAL BREATHING PATTERN. absent: Respiratory Distress - Cardiovascular Exam Cardiovascular Exam: +S1, +S2 - GI/Abdominal Exam GI & Abdominal Exam: Soft. absent: Distended, Tenderness - Extremities Exam Additional comments: Dressings to bilateral lower extremities clean/dry/intact - Neurological Exam Neurological Exam: Alert, Awake, Oriented x3 - Psychiatric Exam Psychiatric exam: Normal Affect, Normal Mood - Skin Skin Exam: Dry, Warm Assessment and Plan - Assessment and Plan (Free Text) Assessment: 56yo M with bilateral lower extremity wounds - Continue wound care daily - FU wound cx, blood cx - FU Arterial duplex - Continue IV Abx per ID - Pain management - Discussed plan with Dr. Celine Johnson PGY-3
[2017-03-13] MEDS: (Novolog) Insulin Aspart, Recombinant 100 u/ml 10 ml vial SC SCH ×4 (07:50→22:10)
--- NOTE | 2017-03-13 08:47 | CP.PCM.PN ---
Subjective - Date & Time of Evaluation Date of Evaluation: 03/13/17 Time of Evaluation: 06:50 - Subjective Subjective: Patient seen and examined at bedside this AM. MAMIEO. Pt reports some pain in the wounds on lower extremities L>R, but no fevers, chills, or any other symptoms. Patient has palpable pedal pulses and dressings c/d/i over the lower extremities Objective - Vital Signs/Intake and Output Vital Signs (last 24 hours): Temp Pulse Resp BP Pulse Ox 97.5 F L 90 20 135/60 97 03/13/17 08:25 03/13/17 08:25 03/13/17 08:25 03/13/17 08:25 03/13/17 08:25 Intake and Output: 03/13/17 03/13/17 06:59 18:59 Intake Total 1290 Output Total 400 Balance 890 - Medications Medications: Current Medications Albuterol/Ipratropium (Duoneb 3 Mg/0.5 Mg (3 Ml) Ud) 3 ml INH RQ6 [facility] Last Admin: 03/13/17 08:25 Dose: 3 ml Allopurinol (Zyloprim) 300 mg PO DAILY [facility] Last Admin: 03/12/17 10:41 Dose: 300 mg Enoxaparin Sodium (Lovenox) 40 mg SC DAILY [facility] Last Admin: 03/12/17 10:41 Dose: 40 mg Ergocalciferol (Drisdol 50,000 Intl Units Cap) 1 cap PO QWK [facility] Famotidine (Pepcid) 20 mg PO HS [facility] Last Admin: 03/12/17 22:06 Dose: 20 mg Vancomycin HCl 1,000 mg/ (Sodium Chloride) 250 mls @ 166.6 mls/hr IVPB Q12H [facility] Last Admin: 03/13/17 05:07 Dose: 166.6 mls/hr Piperacillin Sod/Tazobactam (Sod 3.375 gm/ Sodium Chloride) 100 mls @ 200 mls/ hr IVPB Q8H [facility] Last Admin: 03/13/17 02:35 Dose: 200 mls/hr Insulin Aspart (Novolog) 0 unit SC ACHS [facility] PRN Reason: Protocol Last Admin: 03/13/17 07:50 Dose: Not Given Insulin Glargine (Lantus) 5 unit SC [facility] Last Admin: 03/12/17 22:04 Dose: Not Given Montelukast Sodium (Singulair) 10 mg PO DAILY [facility] Last Admin: 03/12/17 10:41 Dose: 10 mg Oxycodone/Acetaminophen (Percocet 5/325 Mg Tab) 2 tab PO Q4H [facility] PRN Reason: Pain, severe (8-10) Stop: 03/15/17 13:51 Last Admin: 03/13/17 06:39 Dose: 2 tab Thiamine HCl (Vitamin B1 Tab) 100 mg PO DAILY [facility] Last Admin: 03/12/17 18:02 Dose: 100 mg - Constitutional Appears: Well, Non-toxic, No Acute Distress - Head Exam Head Exam: ATRAUMATIC, NORMOCEPHALIC - Eye Exam Eye Exam: Normal appearance. absent: Conjunctival injection, Scleral icterus - ENT Exam ENT Exam: Mucous Membranes Moist, Normal Oropharynx - Respiratory Exam Respiratory Exam: NORMAL BREATHING PATTERN. absent: Accessory Muscle Use, Respiratory Distress - Cardiovascular Exam Cardiovascular Exam: absent: Bradycardia, Tachycardia - GI/Abdominal Exam GI & Abdominal Exam: Soft. absent: Distended, Tenderness - Extremities Exam Extremities Exam: absent: Pedal Edema Additional comments: BL calf wounds covered in kerlex and telfa dressing d/i with minimal sero- sanguinous output mixed in with the medihoney BL. BL wounds in the soft tissue of the medial calves BL with no underlying fluctuance or expressible purulent drainage. Pedal pulses 2/4 to palpation BL. lower extremity skin dark red/ purple. - Neurological Exam Neurological Exam: Alert, Awake, Oriented x3 - Psychiatric Exam Psychiatric exam: Normal Affect, Normal Mood - Skin Skin Exam: Dry, Warm. absent: Intact, Normal Color Assessment and Plan - Assessment and Plan (Free Text) Assessment: 56yo M with bilateral lower extremity wounds palpable pedal pulses BL Plan - No surgical intervention necessary at this time. - Continue wound care per wound care nursing daily. Would suggest leaving wounds open to air per Dr. Berger - F/U BL LE duplex - FU wound cx, blood cx - Continue IV Abx per ID - Pain management Surgery signing off at this time. Please re-consult if you have further questions or concerns. Discussed plan with Dr. Celine Zamora, PGY2
[2017-03-13] MEDS: Enoxaparin 40 mg Syringe SC SCH (09:03)
--- NOTE | 2017-03-13 09:18 | CP.PCM.CON ---
History of Present Illness - History of Present Illness History of Present Illness: Orthopedic consultation requested Dr. Calhoun for right hip pain 56M complains of increased right hip pain after fall approx 1 week ago. He says he has had bilateral hip pain for years, R>>L, but after this fall he is having increased pain in the right hip, aching, even at rest. He uses a cane for ambulation for years. He has never seen an orthopedic doctor about his hips in the past. He denies numbness/tingling. He is admitted for BLE wound infections from abrasions sustained during fall 1 week ago that failed outpatient PO antibiotics. Denies fever/chills/n/v/CP/SOB/dizziness PMH: CHF, DM, HTN, asthma, COPD, TONIO PSH: left shoulder/elbow/wrist ORIF, knee arthroscopy Allergies: cefuroxime, cephalexin, clarithromycin, levofloxacin, moxifloxacin Review of Systems - Review of Systems All systems: reviewed and no additional remarkable complaints except - Constitutional Additional comments: denies - Musculoskeletal Musculoskeletal: As Per HPI - Integumentary Integumentary: Wounds - Neurological Neurological: As Per HPI - Hematologic/Lymphatic Hematologic: absent: As Per HPI, Easy Bleeding, Easy Bruising, Lymphadenopathy, Other Past Patient History - Infectious Disease Hx of Infectious Diseases: None - Past Medical History & Family History Past Medical History?: Yes Past Family History: Reviewed and not pertinent - Past Social History Smoking Status: Former Smoker - CARDIAC Hx Congestive Heart Failure: Yes (3 YEARS) Hx Hypertension: Yes Hx Peripheral Edema: Yes (SOMETIMES NOT AT PRESENT) - PULMONARY Hx Asthma: Yes Hx Chronic Obstructive Pulmonary Disease (COPD): Yes Hx Emphysema: Yes Hx Pneumonia: Yes Hx Sleep Apnea: Yes (NO C PAP) - NEUROLOGICAL Hx Neurological Disorder: No - HEENT Hx HEENT Problems: Yes - RENAL Hx Chronic Kidney Disease: No - ENDOCRINE/METABOLIC Hx Endocrine Disorders: Yes Hx Diabetes Mellitus Type 2: Yes - HEMATOLOGICAL/ONCOLOGICAL Hx Blood Disorders: Yes Hx Cancer: Yes (BLADDER) - INTEGUMENTARY Hx Dermatological Problems: Yes (DISCOLORED LOWER EXTREMITIES ) - MUSCULOSKELETAL/RHEUMATOLOGICAL Hx Falls: Yes - GASTROINTESTINAL Hx Gastritis: Yes (FROM MEDS) - GENITOURINARY/GYNECOLOGICAL Hx Genitourinary Disorders: Yes (SEE COMMENT) Hx Bladder Cancer: Yes Hx Hematuria: Yes Other/Comment: BLADDER CANCER - PSYCHIATRIC Hx Substance Use: No - SURGICAL HISTORY Hx Surgeries: Yes Hx Open Reduction Internal Fixation: Yes (LEFT SHOULDER LEFT ELBOW REMOVAL HARDWARE) Hx Orthopedic Surgery: Yes (LEFT KNEE) Other/Comment: TURP; HX: CYSTO WITH BLADDER BX. AND FULG. - ANESTHESIA Hx Anesthesia: Yes Hx Anesthesia Reactions: Yes (DIFFICULTY TO AROUSE BUT WAS DISCHARGED) Hx Malignant Hyperthermia: No Meds Allergies/Adverse Reactions: Allergies Allergy/AdvReac Type Severity Reaction Status Date / Time cefuroxime Allergy RASH Verified 03/10/17 17:09 cephalexin Allergy RASH Verified 03/10/17 17:09 clarithromycin Allergy RASH Verified 03/10/17 17:09 levofloxacin Allergy RASH Verified 03/10/17 17:09 moxifloxacin Allergy RASH Verified 03/10/17 17:09 - Medications Medications: Current Medications Albuterol/Ipratropium (Duoneb 3 Mg/0.5 Mg (3 Ml) Ud) 3 ml INH RQ6 [facility] Last Admin: 03/13/17 08:25 Dose: 3 ml Allopurinol (Zyloprim) 300 mg PO DAILY [facility] Last Admin: 03/13/17 09:03 Dose: 300 mg Enoxaparin Sodium (Lovenox) 40 mg SC DAILY [facility] Last Admin: 03/13/17 09:03 Dose: 40 mg Ergocalciferol (Drisdol 50,000 Intl Units Cap) 1 cap PO QWK [facility] Famotidine (Pepcid) 20 mg PO HS [facility] Last Admin: 03/12/17 22:06 Dose: 20 mg Vancomycin HCl 1,000 mg/ (Sodium Chloride) 250 mls @ 166.6 mls/hr IVPB Q12H [facility] Last Admin: 03/13/17 05:07 Dose: 166.6 mls/hr Piperacillin Sod/Tazobactam (Sod 3.375 gm/ Sodium Chloride) 100 mls @ 200 mls/ hr IVPB Q8H [facility] Last Admin: 03/13/17 02:35 Dose: 200 mls/hr Insulin Aspart (Novolog) 0 unit SC ACHS [facility] PRN Reason: Protocol Last Admin: 03/13/17 07:50 Dose: Not Given Insulin Glargine (Lantus) 5 unit SC HS [facility] Last Admin: 03/12/17 22:04 Dose: Not Given Montelukast Sodium (Singulair) 10 mg PO DAILY [facility] Last Admin: 03/13/17 09:03 Dose: 10 mg Oxycodone/Acetaminophen (Percocet 5/325 Mg Tab) 2 tab PO Q4H PRN PRN Reason: Pain, severe (8-10) Stop: 03/15/17 13:51 Last Admin: 03/13/17 06:39 Dose: 2 tab Thiamine HCl (Vitamin B1 Tab) 100 mg PO DAILY [facility] Last Admin: 03/13/17 09:03 Dose: 100 mg Physical Exam - Constitutional Appears: Well, No Acute Distress - Head Exam Head Exam: ATRAUMATIC, NORMAL INSPECTION - Neck Exam Neck exam: Positive for: Full Rom, Normal Inspection - Respiratory Exam Respiratory Exam: NORMAL BREATHING PATTERN - Cardiovascular Exam Additional comments: +DP pulses B calves soft NT neg homans - Extremities Exam Additional comments: Right hip: pain with active and passive ROM. ROM restricted. Left hip: able to actively flex hip/knee to 90 degrees with minimal pain - Expanded Lower Extremities Exam Right Hip exam: crepitus, normal inspection Ankle exam: FULL ROM (+DP pulse) - Back Exam Back exam: NORMAL INSPECTION - Neurological Exam Neurological exam: Alert, Oriented x3 - Psychiatric Exam Psychiatric exam: Normal Affect, Normal Mood - Skin Skin Exam: Warm Additional comments: BLE wounds dressing intact brauny pigmentation to BLE Results - Vital Signs Recent Vital Signs: Last Vital Signs Temp 97.5 F L 03/13/17 08:25 Pulse 90 03/13/17 08:25 Resp 20 03/13/17 08:25 BP 135/60 03/13/17 08:25 Pulse Ox 97 03/13/17 08:25 - Labs Result Diagrams: 03/10/17 18:01 03/10/17 18:01 Labs: Laboratory Results - last 24 hr 03/11/17 03/12/17 03/12/17 08:23 11:18 16:31 POC Glucose (mg/dL) 134 H 152 H Hemoglobin A1c 6.2 Iron TIBC % Saturation 03/12/17 03/12/17 03/13/17 16:40 21:34 07:38 POC Glucose (mg/dL) 143 H 103 Hemoglobin A1c Iron 57 TIBC 283 % Saturation 20 Assessment & Plan (1) Avascular necrosis of right femoral head Assessment and Plan: Imaging reviewed, xrays pending No acute fracture appreciated exacerbation due to fall PT/OT, patient may need walker at this time WBAT VTE proph Patient indicated for elective total hip replacement, right hip worse than left with noted subluxation of femoral head Patient must be free of any infection and wounds healed prior to any prosthesis implantation Patient instructed to follow up in office after wounds healed and completion of antibiotics d/w Dr. Calhoun, agrees with above, call for follow up appointment [phone] Status: Chronic (2) Avascular necrosis of left femoral head Status: Chronic (3) Degenerative joint disease of right hip Status: Chronic (4) Primary osteoarthritis of left hip Status: Chronic Radiology Interpretation - Radiology Interpretation #2 Interpretation: Accession No. 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 no. Patient Name: HERRERA ZAMUDIO Pt. Address: [address] [place] [address] Rec #: [id number] [place] [address]: Diego YI, Che Hilton Pt Order Location: [facility] : 1960 Male Age: 56 Order #: [id number] Reason for exam: CA BLADER MASS RLQ CT Scan ABD PELVIS PO CONTRAST ONLY Exam Date: 03/11/17 This imaging exam was performed at [facility] EXAM: CT Abdomen and Pelvis With Intravenous Contrast CLINICAL HISTORY: 56 years old, male; Signs and symptoms; Mass, lump, or swelling; Rlq; Additional info: Ca blader mass rlq TECHNIQUE: Axial computed tomography images of the abdomen and pelvis with intravenous contrast. This CT exam was performed using one or more of the following dose reduction techniques: automated exposure control, adjustment of the mA and/or kV according to patient size, and/or use of iterative reconstruction technique. Coronal and sagittal reformatted images were created and reviewed. CONTRAST: 80 mL of [id number] administered intravenously. EXAM DATE/TIME: Exam ordered 03/11/2017 11:34 AM COMPARISON: No relevant prior studies available. FINDINGS: Lower thorax: ABDOMEN: Liver: Unremarkable. No mass. Gallbladder and bile ducts: Unremarkable. No calcified stones. No ductal dilation. Pancreas: Unremarkable. No mass. No ductal dilation. Spleen: Unremarkable. No splenomegaly. Adrenals: Unremarkable. No mass. Kidneys and ureters: Calcifications in the renal case bilaterally appear vascular in nature.No solid mass. No hydronephrosis. Stomach and bowel: There are scattered colonic diverticula. No obstruction. No mucosal thickening. Appendix: No findings to suggest acute appendicitis. PELVIS: Bladder: Unremarkable. No mass. Reproductive: Unremarkable as visualized. ABDOMEN and PELVIS: Intraperitoneal space: Unremarkable. No free air. No significant fluid collection. Bones/joints: There is flattening and osteonecrosis noted of the right femoral head. Femoral head is subluxed superiorly and laterally. There are Marginal osteophytes.. On the left there is osteonecrosis of the femoral head with underlying compression fracture of the femoral head. There is marked joint space narrowing. Subchondral cyst formation is noted on the acetabular side of both hip joints. There are bilateral hip joint effusions, right side greater than left. There is a healed rib fracture of the left 10th rib. Soft tissues: The subcutaneous air is noted within the there is external iliac fat of the anterior abdominal wall at the level the umbilicus. Vasculature: The calcifications are noted along the course of the cavernosal artery the penis. Phleboliths are along the left spermatic cord No abdominal aortic aneurysm. Lymph nodes: Adenopathy is noted within the groin bilaterally. The dominant chika mass in the left groin measures 2.4 x 1.6 x 5.2 cm. The dominant lymph node on the right measures 3.3 x 1.5 x 1.8 cm. IMPRESSION: 1. Advanced osteoarthritis of both hip joints with superolateral dislocation of the right hip, bilateral joint effusions and osteonecrosis with compression fracture of the femoral heads. 2. Scattered colonic diverticula. Dictated By: Radha Seals MD Dictated Date/Time: 03/11/171825 Signed By: Radha Seals MD Date Signed: 1825 Transcribed By: [facility] Transcribe Date/Time : 03/11/171825 SONYA/HERLINDA
[2017-03-13] MEDS ORDERED: Ergocalciferol 50,000 Intl Units Cap PO SCH (10:00)
--- NOTE | 2017-03-13 11:49 | RAD ---
PROCEDURE: Bilateral hips with pelvis HISTORY: PAIN COMPARISON: Not available TECHNIQUE: AP pelvis and bilateral internal rotation hip. FINDINGS: There is no acute fracture. There is deformity of the right femoral head with flattening of the normal contour. There is severe osteoarthritis of the right hip with loss of superior joint space and subchondral sclerosis and marginal productive change. There is mild flattening of the normal contour of the left femoral head. There are subchondral lucencies both femoral heads. Probable bilateral avascular necrosis. Mild osteoarthritis of the left hip. IMPRESSION: Probable bilateral avascular necrosis. Severe right and mild left osteoarthritis. No acute fracture.
--- NOTE | 2017-03-13 13:49 | CP.PCM.CON ---
History of Present Illness - History of Present Illness History of Present Illness: Podiatry consult note for Dr. Braswell: 56yo M with PMHx of Asthma, CHF, COPD, DM, Emphysema, HTN, Sleep Apnea here for evaluation of bilateral lower extremity wounds and fungal nails. Patient states that he had a mechanical fall and he scraped both of his lower legs on the floor , Left worse than the right. Patient also complains of pain in his right hip and states that one of his doctors told him he needs both hips replaced. Patient denies any other pedal complaints at this time. Patient appears in NAD and AAOx3 and resting comfortably in bed with walker at bedside. Review of Systems - Constitutional Constitutional: As Per HPI Past Patient History - Infectious Disease Hx of Infectious Diseases: None - Past Medical History & Family History Past Medical History?: Yes Past Family History: Reviewed and not pertinent - Past Social History Smoking Status: Former Smoker - CARDIAC Hx Congestive Heart Failure: Yes (3 YEARS) Hx Hypertension: Yes Hx Peripheral Edema: Yes (SOMETIMES NOT AT PRESENT) - PULMONARY Hx Asthma: Yes Hx Chronic Obstructive Pulmonary Disease (COPD): Yes Hx Emphysema: Yes Hx Pneumonia: Yes Hx Sleep Apnea: Yes (NO C PAP) - NEUROLOGICAL Hx Neurological Disorder: No - HEENT Hx HEENT Problems: Yes - RENAL Hx Chronic Kidney Disease: No - ENDOCRINE/METABOLIC Hx Endocrine Disorders: Yes Hx Diabetes Mellitus Type 2: Yes - HEMATOLOGICAL/ONCOLOGICAL Hx Blood Disorders: Yes Hx Cancer: Yes (BLADDER) - INTEGUMENTARY Hx Dermatological Problems: Yes (DISCOLORED LOWER EXTREMITIES ) - MUSCULOSKELETAL/RHEUMATOLOGICAL Hx Falls: Yes - GASTROINTESTINAL Hx Gastritis: Yes (FROM MEDS) - GENITOURINARY/GYNECOLOGICAL Hx Genitourinary Disorders: Yes (SEE COMMENT) Hx Bladder Cancer: Yes Hx Hematuria: Yes Other/Comment: BLADDER CANCER - PSYCHIATRIC Hx Substance Use: No - SURGICAL HISTORY Hx Surgeries: Yes Hx Open Reduction Internal Fixation: Yes (LEFT SHOULDER LEFT ELBOW REMOVAL HARDWARE) Hx Orthopedic Surgery: Yes (LEFT KNEE) Other/Comment: TURP; HX: CYSTO WITH BLADDER BX. AND FULG. - ANESTHESIA Hx Anesthesia: Yes Hx Anesthesia Reactions: Yes (DIFFICULTY TO AROUSE BUT WAS DISCHARGED) Hx Malignant Hyperthermia: No Meds Allergies/Adverse Reactions: Allergies Allergy/AdvReac Type Severity Reaction Status Date / Time cefuroxime Allergy RASH Verified 07/07/17 17:09 cephalexin Allergy RASH Verified 03/10/17 17:09 clarithromycin Allergy RASH Verified 03/10/17 17:09 levofloxacin Allergy RASH Verified 03/10/17 17:09 moxifloxacin Allergy RASH Verified 03/10/17 17:09 - Medications Medications: Current Medications Albuterol/Ipratropium (Duoneb 3 Mg/0.5 Mg (3 Ml) Ud) 3 ml INH RQ6 [facility] Last Admin: 03/13/17 08:25 Dose: 3 ml Allopurinol (Zyloprim) 300 mg PO DAILY [facility] Last Admin: 03/13/17 09:03 Dose: 300 mg Enoxaparin Sodium (Lovenox) 40 mg SC DAILY [facility] Last Admin: 03/13/17 09:03 Dose: 40 mg Ergocalciferol (Drisdol 50,000 Intl Units Cap) 1 cap PO QWK [facility] Last Admin: 03/13/17 10:09 Dose: 1 cap Famotidine (Pepcid) 20 mg PO HS [facility] Last Admin: 03/12/17 22:06 Dose: 20 mg Vancomycin HCl 1,000 mg/ (Sodium Chloride) 250 mls @ 166.6 mls/hr IVPB Q12H [facility] Last Admin: 03/13/17 05:07 Dose: 166.6 mls/hr Piperacillin Sod/Tazobactam (Sod 3.375 gm/ Sodium Chloride) 100 mls @ 200 mls/ hr IVPB Q8H [facility] Last Admin: 03/13/17 10:09 Dose: 200 mls/hr Insulin Aspart (Novolog) 0 unit SC ACHS [facility] PRN Reason: Protocol Last Admin: 03/13/17 11:53 Dose: Not Given Insulin Glargine (Lantus) 5 unit SC HS [facility] Last Admin: 03/12/17 22:04 Dose: Not Given Montelukast Sodium (Singulair) 10 mg PO DAILY [facility] Last Admin: 03/13/17 09:03 Dose: 10 mg Oxycodone/Acetaminophen (Percocet 5/325 Mg Tab) 2 tab PO Q4H PRN PRN Reason: Pain, severe (8-10) Stop: 03/15/17 13:51 Last Admin: 03/13/17 10:44 Dose: 2 tab Thiamine HCl (Vitamin B1 Tab) 100 mg PO DAILY [facility] Last Admin: 03/13/17 09:03 Dose: 100 mg Physical Exam - Constitutional Appears: Well, Non-toxic, No Acute Distress - Extremities Exam Additional comments: O: vasc: lightly palpable pedal pulses b/l, TG wnl, CFT < 3 sec to all digits, nonpitting edema noted to legs b/l neuro: grossly intact derm: multiple superficial, well circumscribed open lesions to medial and anterior left leg, as well as one superficial ulceration to medial right leg, mixed granular and fibrotic bases, scab formation noted to multiple wounds on left leg, no drainage, no purulence, no ascending cellulitis, discoloration of toenails x 2, dystrophic nails x 10 ortho: no pain on palpation to posterior calf or legs b/l - Neurological Exam Neurological exam: Alert, Oriented x3 - Psychiatric Exam Psychiatric exam: Normal Affect, Normal Mood Results - Vital Signs Recent Vital Signs: Last Vital Signs Temp 97.5 F L 03/13/17 08:25 Pulse 90 03/13/17 08:25 Resp 20 03/13/17 08:25 BP 135/60 03/13/17 08:25 Pulse Ox 97 03/13/17 08:25 - Labs Result Diagrams: 03/10/17 18:01 03/10/17 18:01 Labs: Laboratory Results - last 24 hr 03/12/17 03/12/17 03/12/17 16:31 16:40 21:34 POC Glucose (mg/dL) 152 H 143 H Iron 57 TIBC 283 % Saturation 20 03/13/17 03/13/17 07:38 11:12 POC Glucose (mg/dL) 103 94 Iron TIBC % Saturation Assessment & Plan - Assessment and Plan (Free Text) Assessment: 56 y/o male seen at bedside for 1)superficial leg wounds secondary to fall and 2 )onychomycosis Plan: patient evaluated and chart reviewed discussed in detail with attending Dr. Braswell labs and vitals reviewed; WBC 10.0 (03/10/17), afebrile wound cx left leg: coag neg. staph continue IV abx as per ID; Vanco, Zosyn applied xeroform, DSD to bilateral legs podiatry will continue to follow while patient remains in house
--- NOTE | 2017-03-13 17:29 | CP.PCM.PN ---
Subjective - Date & Time of Evaluation Date of Evaluation: 03/13/17 Time of Evaluation: 17:27 - Subjective Subjective: pt has less pain wounds geting beter Objective - Vital Signs/Intake and Output Vital Signs (last 24 hours): Temp Pulse Resp BP Pulse Ox 74 F L 74 20 137/75 100 03/13/17 16:00 03/13/17 16:00 03/13/17 16:00 03/13/17 16:00 03/13/17 16:00 Intake and Output: 03/13/17 03/13/17 06:59 18:59 Intake Total 1290 340 Output Total 400 Balance 890 340 - Medications Medications: Current Medications Albuterol/Ipratropium (Duoneb 3 Mg/0.5 Mg (3 Ml) Ud) 3 ml INH RQ6 [facility] Last Admin: 03/13/17 14:17 Dose: 3 ml Allopurinol (Zyloprim) 300 mg PO DAILY [facility] Last Admin: 03/13/17 09:03 Dose: 300 mg Enoxaparin Sodium (Lovenox) 40 mg SC DAILY [facility] Last Admin: 03/13/17 09:03 Dose: 40 mg Ergocalciferol (Drisdol 50,000 Intl Units Cap) 1 cap PO QWK [facility] Last Admin: 03/13/17 10:09 Dose: 1 cap Famotidine (Pepcid) 20 mg PO HS [facility] Last Admin: 03/12/17 22:06 Dose: 20 mg Vancomycin HCl 1,000 mg/ (Sodium Chloride) 250 mls @ 166.6 mls/hr IVPB Q12H [facility] Last Admin: 03/13/17 05:07 Dose: 166.6 mls/hr Piperacillin Sod/Tazobactam (Sod 3.375 gm/ Sodium Chloride) 100 mls @ 200 mls/ hr IVPB Q8H [facility] Last Admin: 03/13/17 10:09 Dose: 200 mls/hr Insulin Aspart (Novolog) 0 unit SC ACHS [facility] PRN Reason: Protocol Last Admin: 03/13/17 11:53 Dose: Not Given Insulin Glargine (Lantus) 5 unit SC HS [facility] Last Admin: 03/12/17 22:04 Dose: Not Given Montelukast Sodium (Singulair) 10 mg PO DAILY [facility] Last Admin: 03/13/17 09:03 Dose: 10 mg Oxycodone/Acetaminophen (Percocet 5/325 Mg Tab) 2 tab PO Q4H PRN PRN Reason: Pain, severe (8-10) Stop: 03/15/17 13:51 Last Admin: 03/13/17 15:39 Dose: 2 tab Thiamine HCl (Vitamin B1 Tab) 100 mg PO DAILY [facility] Last Admin: 03/13/17 09:03 Dose: 100 mg - Constitutional Appears: Non-toxic - Head Exam Head Exam: NORMAL INSPECTION - Eye Exam Eye Exam: PERRL Pupil Exam: NORMAL ACCOMODATION - ENT Exam ENT Exam: Normal Exam - Neck Exam Neck Exam: Full ROM - Respiratory Exam Respiratory Exam: Decreased Breath Sounds - Cardiovascular Exam Cardiovascular Exam: REGULAR RHYTHM - Skin Skin Exam: Normal Color Assessment and Plan - Assessment and Plan (Free Text) Assessment: leg infection improving avascular necrosis and osteoarthritis both hips cont ab and as per orders
[2017-03-13] MEDS: (Lantus) Insulin Glargine, Recombinant SC SCH (21:49)
[2017-03-13 23:33] VITALS: O2SAT 98
[2017-03-14] MEDS: Oxycodone/Acetaminophen 5/325 mg Tab PO PRN ×4 (00:35→13:26)
[2017-03-14] MEDS: Albuterol-Ipratrop 3 mg / 0.5 (3 ml) UD INH SCH ×2 (01:20→08:18)
[2017-03-14] MEDS: Piperacillin/Tazobact 3.375 GM in Sodium Chloride 100 ML IVPB SCH ×2 (01:30→09:33)
[2017-03-14] MEDS: (Novolog) Insulin Aspart, Recombinant 100 u/ml 10 ml vial SC SCH ×2 (07:49→12:35)
[2017-03-14 08:47] VITALS: BP 141/78; PULSE 80; TEMP 98.3
--- NOTE | 2017-03-14 09:08 | CP.PCM.PN ---
Subjective - Date & Time of Evaluation Date of Evaluation: 03/14/17 Time of Evaluation: 09:05 - Subjective Subjective: Podiatry progress note for Dr. Braswell: 56yo M seen at bedside for bilateral leg wounds. Patient states that he has pain in his hip but denies any pain in his feet or legs. Patient states that the primary physician wants to let the wounds on the legs air out and to hold off on applying dressings for now. Patient denies any other pedal complaints at this time. He denies any acute events overnight. patient states that he will have hip surgery once the wounds fully resolve. denies n/f/v/d/c/sob. Objective - Vital Signs/Intake and Output Vital Signs (last 24 hours): Temp Pulse Resp BP Pulse Ox 98.3 F 80 20 141/78 98 03/14/17 08:00 03/14/17 08:00 03/14/17 08:00 03/14/17 08:00 03/14/17 08:00 Intake and Output: 03/14/17 03/14/17 06:59 18:59 Intake Total 1150 Balance 1150 - Medications Medications: Current Medications Albuterol/Ipratropium (Duoneb 3 Mg/0.5 Mg (3 Ml) Ud) 3 ml INH RQ6 [facility] Last Admin: 03/14/17 08:18 Dose: 3 ml Allopurinol (Zyloprim) 300 mg PO DAILY [facility] Last Admin: 03/13/17 09:03 Dose: 300 mg Enoxaparin Sodium (Lovenox) 40 mg SC DAILY [facility] Last Admin: 03/13/17 09:03 Dose: 40 mg Ergocalciferol (Drisdol 50,000 Intl Units Cap) 1 cap PO QWK [facility] Last Admin: 03/13/17 10:09 Dose: 1 cap Famotidine (Pepcid) 20 mg PO HS [facility] Last Admin: 03/13/17 21:50 Dose: 20 mg Vancomycin HCl 1,000 mg/ (Sodium Chloride) 250 mls @ 166.6 mls/hr IVPB Q12H [facility] Last Admin: 03/14/17 06:30 Dose: 166.6 mls/hr Piperacillin Sod/Tazobactam (Sod 3.375 gm/ Sodium Chloride) 100 mls @ 200 mls/ hr IVPB Q8H [facility] Last Admin: 03/14/17 01:30 Dose: 200 mls/hr Insulin Aspart (Novolog) 0 unit SC ACHS [facility] PRN Reason: Protocol Last Admin: 03/14/17 07:49 Dose: Not Given Insulin Glargine (Lantus) 5 unit SC HS [facility] Last Admin: 03/13/17 21:49 Dose: 5 unit Montelukast Sodium (Singulair) 10 mg PO DAILY [facility] Last Admin: 03/13/17 09:03 Dose: 10 mg Oxycodone/Acetaminophen (Percocet 5/325 Mg Tab) 2 tab PO Q4H [facility] PRN Reason: Pain, severe (8-10) Stop: 03/15/17 13:51 Last Admin: 03/14/17 05:20 Dose: 2 tab Thiamine HCl (Vitamin B1 Tab) 100 mg PO DAILY [facility] Last Admin: 03/13/17 09:03 Dose: 100 mg - Constitutional Appears: Well, Non-toxic, No Acute Distress - Extremities Exam Additional comments: O: vasc: lightly palpable pedal pulses b/l, TG wnl, CFT < 3 sec to all digits, nonpitting edema noted to legs b/l neuro: grossly intact derm: multiple superficial, well circumscribed open lesions to medial and anterior left leg that are beginning to scab over, as well as one superficial ulceration to medial right leg, mixed granular and fibrotic bases, scab formation noted to multiple wounds on left leg, no drainage, no purulence, no ascending cellulitis, discoloration of toenails x 2, dystrophic nails x 10 ortho: no pain on palpation to posterior calf or legs b/l - Neurological Exam Neurological Exam: Alert, Awake, Oriented x3 - Psychiatric Exam Psychiatric exam: Normal Affect, Normal Mood Assessment and Plan - Assessment and Plan (Free Text) Assessment: 56 y/o male seen at bedside for 1)superficial leg wounds secondary to fall and 2 )onychomycosis Plan: patient evaluated and chart reviewed discussed in detail with attending Dr. Braswell labs and vitals reviewed; afebrile wound cx left leg: coag neg. staph continue IV abx as per ID; Vanco, Zosyn dressings held for now as per primary, wounds are improving podiatry will continue to follow while patient remains in house
--- NOTE | 2017-03-14 09:20 | CP.PCM.PN ---
Subjective - Date & Time of Evaluation Date of Evaluation: 03/14/17 Time of Evaluation: 09:18 - Subjective Subjective: Patient states pain in hip is the same. No new complaints. He says that he is not interested in having hip replacement in the near future, he wants to have time to thing about it after he takes care of his other medical problems (leg wounds, bladder surgery). Advised patient to follow up as outpatient. Objective - Vital Signs/Intake and Output Vital Signs (last 24 hours): Temp Pulse Resp BP Pulse Ox 98.3 F 80 20 141/78 98 03/14/17 08:00 03/14/17 08:00 03/14/17 08:00 03/14/17 08:00 03/14/17 08:00 Intake and Output: 03/14/17 03/14/17 06:59 18:59 Intake Total 1150 Balance 1150 - Medications Medications: Current Medications Albuterol/Ipratropium (Duoneb 3 Mg/0.5 Mg (3 Ml) Ud) [address] [facility] Last Admin: 03/14/17 08:18 Dose: 3 ml Allopurinol (Zyloprim) 300 mg PO DAILY [facility] Last Admin: 03/13/17 09:03 Dose: 300 mg Enoxaparin Sodium (Lovenox) [address] [facility] Last Admin: 03/13/17 09:03 Dose: 40 mg Ergocalciferol (Drisdol 50,000 Intl Units Cap) 1 cap PO QWK [facility] Last Admin: 03/13/17 10:09 Dose: 1 cap Famotidine (Pepcid) [address] [facility] Last Admin: 03/13/17 21:50 Dose: 20 mg Vancomycin HCl 1,000 mg/ (Sodium Chloride) 250 mls @ 166.6 mls/hr IVPB Q12H [facility] Last Admin: 03/14/17 06:30 Dose: 166.6 mls/hr Piperacillin Sod/Tazobactam (Sod 3.375 gm/ Sodium Chloride) 100 mls @ 200 mls/ hr IVPB Q8H [facility] Last Admin: 03/14/17 01:30 Dose: 200 mls/hr Insulin Aspart (Novolog) 0 unit SC ACHS [facility] PRN Reason: Protocol Last Admin: 03/14/17 07:49 Dose: Not Given Insulin Glargine (Lantus) [address] [facility] Last Admin: 03/13/17 21:49 Dose: 5 unit Montelukast Sodium (Singulair) [address] [facility] Last Admin: 03/13/17 09:03 Dose: 10 mg Oxycodone/Acetaminophen (Percocet 5/325 Mg Tab) 2 tab PO Q4H PRN PRN Reason: Pain, severe (8-10) Stop: 03/15/17 13:51 Last Admin: 03/14/17 05:20 Dose: 2 tab Thiamine HCl (Vitamin B1 Tab) [address] [facility] Last Admin: 03/13/17 09:03 Dose: 100 mg - Constitutional Appears: Well, No Acute Distress - Respiratory Exam Respiratory Exam: NORMAL BREATHING PATTERN - Cardiovascular Exam Additional comments: +DP pulses bilaterally - Extremities Exam Additional comments: sensation intact calves soft NT neg homans sitting with hips/knees flexed to approx 90 degrees - Back Exam Additional comments: sits on EOB with kyphotic posture - Neurological Exam Neurological Exam: Alert, Awake, Oriented x3 Neuro motor strength exam: Left Lower Extremity: 5 (ankle +DF/PF), Right Lower Extremity: 5 - Psychiatric Exam Psychiatric exam: Normal Affect, Normal Mood - Skin Skin Exam: Warm Additional comments: BLE wounds dressed. Assessment and Plan (1) Avascular necrosis of right femoral head Assessment & Plan: patient not currently candidate for hip replacement due to active infection patient states he is not interested in surgery in the near future Patient advised to f/u with ortho in the future after wounds/infection resolved , antibiotics complete, and patient is ready to consider surgery d/w Dr. Calhoun, agrees with above cont PT/OT VTE proph encourage OOB Status: Chronic (2) Avascular necrosis of left femoral head Status: Chronic (3) Degenerative joint disease of right hip Status: Chronic (4) Primary osteoarthritis of left hip Status: Chronic
[2017-03-14] MEDS: Enoxaparin 40 mg Syringe SC SCH (09:30)
--- NOTE | 2017-03-14 11:03 | CP.PCM.PN ---
Subjective - Date & Time of Evaluation Date of Evaluation: 03/14/17 Time of Evaluation: 11:00 - Subjective Subjective: beterafebrile wounds clean and drybs controled Objective - Vital Signs/Intake and Output Vital Signs (last 24 hours): Temp Pulse Resp BP Pulse Ox 98.3 F 80 20 141/78 98 03/14/17 08:00 03/14/17 08:00 03/14/17 08:00 03/14/17 08:00 03/14/17 08:00 Intake and Output: 03/14/17 03/14/17 06:59 18:59 Intake Total 1150 Balance 1150 - Medications Medications: Current Medications Albuterol/Ipratropium (Duoneb 3 Mg/0.5 Mg (3 Ml) Ud) 3 ml INH RQ6 [facility] Last Admin: 03/14/17 08:18 Dose: 3 ml Allopurinol (Zyloprim) 300 mg PO DAILY [facility] Last Admin: 03/14/17 09:29 Dose: 300 mg Enoxaparin Sodium (Lovenox) 40 mg SC DAILY [facility] Last Admin: 03/14/17 09:30 Dose: 40 mg Ergocalciferol (Drisdol 50,000 Intl Units Cap) 1 cap PO QWK [facility] Last Admin: 03/13/17 10:09 Dose: 1 cap Famotidine (Pepcid) 20 mg PO HS [facility] Last Admin: 03/13/17 21:50 Dose: 20 mg Vancomycin HCl 1,000 mg/ (Sodium Chloride) 250 mls @ 166.6 mls/hr IVPB Q12H [facility] Last Admin: 03/14/17 06:30 Dose: 166.6 mls/hr Piperacillin Sod/Tazobactam (Sod 3.375 gm/ Sodium Chloride) 100 mls @ 200 mls/ hr IVPB Q8H [facility] Last Admin: 03/14/17 09:33 Dose: 200 mls/hr Insulin Aspart (Novolog) 0 [facility] PRN Reason: Protocol Last Admin: 03/14/17 07:49 Dose: Not Given Insulin Glargine (Lantus) 5 unit SC HS [facility] Last Admin: 03/13/17 21:49 Dose: 5 unit Montelukast Sodium (Singulair) 10 mg PO DAILY [facility] Last Admin: 03/14/17 09:33 Dose: 10 mg Oxycodone/Acetaminophen (Percocet 5/325 Mg Tab) 2 tab PO Q4H PRN PRN Reason: Pain, severe (8-10) Stop: 03/15/17 13:51 Last Admin: 03/14/17 09:30 Dose: 2 tab Thiamine HCl (Vitamin B1 Tab) 100 mg PO DAILY [facility] Last Admin: 03/14/17 09:33 Dose: 100 mg - Constitutional Appears: Well - Head Exam Head Exam: NORMAL INSPECTION - Eye Exam Eye Exam: Normal appearance Pupil Exam: NORMAL ACCOMODATION - ENT Exam ENT Exam: Mucous Membranes Moist - Neck Exam Neck Exam: Full ROM - Respiratory Exam Respiratory Exam: NORMAL BREATHING PATTERN - Cardiovascular Exam Cardiovascular Exam: REGULAR RHYTHM - GI/Abdominal Exam GI & Abdominal Exam: Normal Bowel Sounds - Rectal Exam Rectal Exam: NORMAL INSPECTION - Extremities Exam Extremities Exam: Normal Inspection Additional comments: hip pain - Back Exam Back Exam: NORMAL INSPECTION - Neurological Exam Neurological Exam: Oriented x3 - Psychiatric Exam Psychiatric exam: Normal Mood - Skin Skin Exam: Pallor Assessment and Plan - Assessment and Plan (Free Text) Assessment: s/p fall abrasions infection improved avscular nephrosis hips dm copd aneamia stable Plan: will d/c to [facility] oral antibiotics
--- NOTE | 2017-03-14 12:08 | CP.PCM.PN ---
Subjective - Date & Time of Evaluation Date of Evaluation: 03/14/17 Time of Evaluation: 09:00 - Subjective Subjective: blood c/s positive iv rx in progress cont rx Objective - Vital Signs/Intake and Output Vital Signs (last 24 hours): Temp Pulse Resp BP Pulse Ox 98.3 F 80 20 141/78 98 03/14/17 08:00 03/14/17 08:00 03/14/17 08:00 03/14/17 08:00 03/14/17 08:00 Intake and Output: 03/14/17 03/14/17 06:59 18:59 Intake Total 1150 Balance 1150 - Medications Medications: Current Medications Albuterol/Ipratropium (Duoneb 3 Mg/0.5 Mg (3 Ml) Ud) 3 ml INH RQ6 [facility] Last Admin: 03/14/17 08:18 Dose: 3 ml Allopurinol (Zyloprim) 300 mg PO DAILY [facility] Last Admin: 03/14/17 09:29 Dose: 300 mg Enoxaparin Sodium (Lovenox) 40 mg SC DAILY [facility] Last Admin: 03/14/17 09:30 Dose: 40 mg Ergocalciferol (Drisdol 50,000 Intl Units Cap) 1 cap PO QWK [facility] Last Admin: 03/13/17 10:09 Dose: 1 cap Famotidine (Pepcid) 20 mg PO HS [facility] Last Admin: 03/13/17 21:50 Dose: 20 mg Vancomycin HCl 1,000 mg/ (Sodium Chloride) 250 mls @ 166.6 mls/hr IVPB Q12H [facility] Last Admin: 03/14/17 06:30 Dose: 166.6 mls/hr Piperacillin Sod/Tazobactam (Sod 3.375 gm/ Sodium Chloride) 100 mls @ 200 mls/ hr IVPB Q8H [facility] Last Admin: 03/14/17 09:33 Dose: 200 mls/hr Insulin Aspart (Novolog) 0 unit SC ACHS [facility] PRN Reason: Protocol Last Admin: 03/14/17 07:49 Dose: Not Given Insulin Glargine (Lantus) 5 unit SC HS [facility] Last Admin: 03/13/17 21:49 Dose: 5 unit Montelukast Sodium (Singulair) 10 mg PO DAILY [facility] Last Admin: 03/14/17 09:33 Dose: 10 mg Oxycodone/Acetaminophen (Percocet 5/325 Mg Tab) 2 tab PO Q4H PRN PRN Reason: Pain, severe (8-10) Stop: 03/15/17 13:51 Last Admin: 03/14/17 09:30 Dose: 2 tab Thiamine HCl (Vitamin B1 Tab) 100 mg PO DAILY [facility] Last Admin: 03/14/17 09:33 Dose: 100 mg - Constitutional Appears: Non-toxic - Head Exam Head Exam: NORMAL INSPECTION - Eye Exam Eye Exam: absent: Scleral icterus - ENT Exam ENT Exam: Mucous Membranes Dry - Neck Exam Neck Exam: absent: Lymphadenopathy - Respiratory Exam Respiratory Exam: Decreased Breath Sounds - GI/Abdominal Exam GI & Abdominal Exam: Distended - Rectal Exam Rectal Exam: Deferred - Exam Exam: NORMAL INSPECTION - Extremities Exam Extremities Exam: Pedal Edema. absent: Calf Tenderness, Tenderness Assessment and Plan (1) Cellulitis Status: Acute (2) Wound infection Status: Acute (3) Alcohol abuse Status: Acute (4) COPD (chronic obstructive pulmonary disease) Status: Acute (5) Emphysema of lung Status: Acute (6) HTN (hypertension) Status: Acute
--- NOTE | 2017-03-14 12:55 | CP.PCM.PN ---
Subjective - Date & Time of Evaluation Date of Evaluation: 03/14/17 Time of Evaluation: 12:51 - Subjective Subjective: Pt known to me with a hx transitional ca bladder was schueled for TURBT today but was admitted with other med problems.A Hx of [employer] refer pt back to my officce on discharge to be rescheduled when he can be medically cleared. Mia Objective - Vital Signs/Intake and Output Vital Signs (last 24 hours): Temp Pulse Resp BP Pulse Ox 98.3 F 80 20 141/78 98 03/14/17 08:00 03/14/17 08:00 03/14/17 08:00 03/14/17 08:00 03/14/17 08:00 Intake and Output: 03/14/17 03/14/17 06:59 18:59 Intake Total 1150 Balance 1150 - Medications Medications: Current Medications Albuterol/Ipratropium (Duoneb 3 Mg/0.5 Mg (3 Ml) Ud) 3 ml INH RQ6 [facility] Last Admin: 03/14/17 08:18 Dose: 3 ml Allopurinol (Zyloprim) 300 mg PO DAILY [facility] Last Admin: 03/14/17 09:29 Dose: 300 mg Enoxaparin Sodium (Lovenox) 40 mg SC DAILY [facility] Last Admin: 03/14/17 09:30 Dose: 40 mg Ergocalciferol (Drisdol 50,000 Intl Units Cap) 1 cap PO QWK [facility] Last Admin: 03/13/17 10:09 Dose: 1 cap Famotidine (Pepcid) 20 mg PO HS [facility] Last Admin: 03/13/17 21:50 Dose: 20 mg Vancomycin HCl 1,000 mg/ (Sodium Chloride) 250 mls @ 166.6 mls/hr IVPB Q12H [facility] Last Admin: 03/14/17 06:30 Dose: 166.6 mls/hr Piperacillin Sod/Tazobactam (Sod 3.375 gm/ Sodium Chloride) 100 mls @ 200 mls/ hr IVPB Q8H [facility] Last Admin: 03/14/17 09:33 Dose: 200 mls/hr Insulin Aspart (Novolog) 0 unit SC ACHS [facility] PRN Reason: Protocol Last Admin: 03/14/17 12:35 Dose: 3 unit Insulin Glargine (Lantus) 5 unit SC HS [facility] Last Admin: 03/13/17 21:49 Dose: 5 unit Montelukast Sodium (Singulair) 10 mg PO DAILY [facility] Last Admin: 03/14/17 09:33 Dose: 10 mg Oxycodone/Acetaminophen (Percocet 5/325 Mg Tab) 2 tab PO Q4H PRN PRN Reason: Pain, severe (8-10) Stop: 03/15/17 13:51 Last Admin: 03/14/17 09:30 Dose: 2 tab Thiamine HCl (Vitamin B1 Tab) 100 mg PO DAILY [facility] Last Admin: 03/14/17 09:33 Dose: 100 mg
--- NOTE | 2017-03-22 03:56 | CON ---
DATE: CHIEF COMPLAINT: History of bladder tumor. HISTORY OF PRESENT ILLNESS: The patient is scheduled today as an outpatient to have a cystoscopy and possible TURBT, but he was admitted to the hospital on March 10 with cellulitis in his legs and he is refusing to have the procedure today. REVIEW OF SYSTEMS: RESPIRATORY: The patient has no history of wheezing or shortness of breath. CARDIAC: The patient has a history of hypertension. GASTROINTESTINAL: The patient has no GI complaints. GENITOURINARY: The patient has a history of multiple bladder cancers in the past. He has no history of hematuria now. ORTHOPEDIC: Negative. NEUROLOGIC: The patient has multiple disk disease in his spine. SKIN: The patient has a history of cellulitis in the lower extremities. PHYSICAL EXAMINATION: HEAD, EARS, EYES, NOSE AND THROAT: Within normal limits. NECK: Supple. There is no bruits, nodes or masses. CHEST: Clear bilateral. No rales or rhonchi. ABDOMEN: Soft and nontender. EXTREMITIES: There is signs of resolving cellulitis in both lower extremities. Upper extremities normal. IMPRESSION: History of bladder tumor and active cellulitis. SUGGEST: The patient is refusing the procedure today. Suggest that he be discharged and he followup in our office. He has been made aware that he has bladder cancer and he needs followup. Elton Bellamy MD
== END 2017-03-14 14:50 | disposition home health service (06) | DRG 278 ==
LOC: C.ER 16:53 → C.9E 18:20 → C.3T 19:32
PROVIDERS: ADMIT Internal Medicine; ATTEND Internal Medicine
DX: L03.116 Cellulitis of left lower limb (principal); S80.812D Abrasion, left lower leg, subsequent encounter; M87.851 Other osteonecrosis, right femur; M87.852 Other osteonecrosis, left femur; C67.9 Malignant neoplasm of bladder, unspecified; L03.115 Cellulitis of right lower limb; S80.811D Abrasion, right lower leg, subsequent encounter; E11.9 Type 2 diabetes mellitus without complications; M16.11 Unilateral primary osteoarthritis, right hip; M16.12 Unilateral primary osteoarthritis, left hip; W10.9XXD Fall (on) (from) unspecified stairs and steps, subsequent encounter; B35.1 Tinea unguium; G47.33 Obstructive sleep apnea (adult) (pediatric); F10.10 Alcohol abuse, uncomplicated; K57.30 Diverticulosis of large intestine without perforation or abscess without bleeding; Z99.81 Dependence on supplemental oxygen; Z87.01 Personal history of pneumonia (recurrent); Z87.891 Personal history of nicotine dependence; Z91.81 History of falling

== ENCOUNTER 2017-04-25 09:15 | Day surgery (SDC) | payer MEDICAID ==
[2017-04-25] MEDS ORDERED: Propofol 10 mg/ml Inj (20 ML) ONE (10:16)
[2017-04-25] MEDS ORDERED: Midazolam 2 MG/2 ML VIAL ONE (10:16)
[2017-04-25] MEDS ORDERED: Lidocaine Hydrochloride 5 ML INJ ONE (10:27)
[2017-04-25] MEDS ORDERED: Lidocaine 2% Jelly (Uro-Jet) ONE (10:30)
[2017-04-25] MEDS ORDERED: Ciprofloxacin 400mg/200ml D5W 0 MG/0 ML BAG IVPB ONE (10:30)
[2017-04-25] MEDS ORDERED: Iohexol 240 (50 ml) ONE (10:30)
[2017-04-25] MEDS ORDERED: Albuterol HFA 90 mcg/actuation (8 g) ONE (10:36)
[2017-04-25] MEDS ORDERED: Lactated Ringer's 1,000 ML IV ONE (10:38)
[2017-04-25] MEDS: Gentamicin 160 MG in Sodium Chloride 0.9% 100 ML IVPB ONE ×2 (10:45→10:50)
--- NOTE | 2017-04-25 11:13 | PCM.SURG1 ---
Surgeon's Initial Post Op Note - Surgeon's Notes Surgeon: Mia Microchip Specialist: BRI Type of Anesthesia: General LMA Anesthesia Administered By: staff Pre-Operative Diagnosis: HX BT Operative Findings: BT Post-Operative Diagnosis: BT Operation Performed: CYSTO/BX/FULG BT Specimen/Specimens Removed: BT Estimated Blood Loss: EBL {In ML}: 0 Blood Products Given: N/A Drains Used: No Drains Post-Op Condition: Good Date of Surgery/Procedure: 04/25/17 Time of Surgery/Procedure: 11:13
[2017-04-25] MEDS ORDERED: HYDROmorphone 0.5 mg/0.5 ml ISec IVP PRN (11:29)
[2017-04-25] MEDS ORDERED: Lactated Ringer's 1,000 ML IV SCH (11:30)
[2017-04-25 12:59] VITALS: RESP 14
[2017-04-25 13:04] VITALS: BP 137/72; PULSE 93; TEMP 97.1; O2SAT 97
--- NOTE | 2017-04-25 23:21 | OP ---
PROCEDURE DATE: 04/25/2017 PREOPERATIVE DIAGNOSIS: History of bladder tumor. POSTOPERATIVE DIAGNOSIS: Multiple bladder tumors. PROCEDURE: Cystoscopy, biopsy and fulguration of multiple small bladder tumors. DESCRIPTION OF PROCEDURE: As follows, patient signed in detailed informed consent before the procedure. He was aware of the risks, complications, and other ways of managing bladder cancer. He signed a consent after indicating that he was willing to accept these risks and complications and was brought into the room and a timeout was taken according to the rules and regulations of [facility]. Patient was anesthetized and draped and prepped in the usual manner. He was cystoscoped with #21 endoscope. and membranous urethra were normal. Prostatic urethra showed trilobar hypertrophy with minimal to moderate outlet obstruction. The bladder was entered atraumatically. There were several small bladder tumors on the posterior wall on the left side well away from the ureteral orifice. Each one was biopsied and fulgurated extensively. There was no evidence of larger tumors. The patient tolerated this procedure very well. The bladder was drained. The patient was sent to the recovery room in good condition. Followup in 3 months was recommended. Elton Bellamy MD
== END 2017-04-25 17:00 | disposition home or self-care (01) ==
LOC: C.SDS 09:15
PROVIDERS: ATTEND Urology
DX: C67.4 Malignant neoplasm of posterior wall of bladder (principal)
CPT/HCPCS: 52224; 82948; 88305; J1580; J7120

== ENCOUNTER 2018-01-21 13:40 | Inpatient (IN) | payer MEDICAID ==
[2018-01-21 13:44] VITALS: BMI 30.3
--- NOTE | 2018-01-21 14:12 | C.PDOC ---
History Of Present Illness 57 y/o male with a PMHx significant for CHF, COPD, and HTN, who presents with worsening shortness of breath over several weeks, along with increasing difficulty with ambulation. He fell yesterday in the bathroom, and again today in the bedroom when attempting to ambulate. He has been using a walker for four years, and has been sleeping upright in a chair for several years with severe nocturnal dyspnea that has been worse lately. He denies using home oxygen but has been taking nebulizer treatments daily, and has been compliant with his CHF medications. Endy saw his PMD 3 weeks ago and does not recall the details of the visit. He lives with his mother on disability. Patient admits to recreational heroin use. - HPI Chief Complaint (Nursing): Trauma History Per: Patient Onset/Duration Of Symptoms: Days Injury Occurred (Timing): Just Before Arrival Severity: Moderate Recent travel outside of the [place]: No Additional History Per: Patient Past Medical History Vital Signs: Last Vital Signs Temp 98 F 01/21/18 23:21 Pulse 79 01/21/18 23:21 Resp 18 01/21/18 23:21 BP 133/71 01/21/18 23:21 Pulse Ox 98 01/21/18 23:21 - Medical History PMH: Arthritis (L SHOULDER; L KNEE; B/L HIP), Asthma, CHF, COPD, Diabetes, Emphysema, Fractures (LEFT SHOULDER ORIF LEFT ELBOW RIGHT SHOULDER), Gastritis ( FROM MEDS), HTN, Peripheral Edema, Pneumonia, Chronic Kidney Disease, Sleep Apnea (NO C PAP) Other Surgeries: Unknown History Family History: States: Unknown Family Hx - Social History Hx Tobacco Use: No Hx Alcohol Use: No Hx Substance Use: No - Immunization History Hx Tetanus Toxoid Vaccination: Yes Hx Influenza Vaccination: Yes Hx Pneumococcal Vaccination: Yes Review Of Systems Except As Marked, All Systems Reviewed And Found Negative. Cardiovascular: Positive for: Paroxysmal Noc. Dyspnea, Edema Respiratory: Positive for: Shortness of Breath, SOB with Excertion Physical Exam - Physical Exam Appears: In Acute Distress, Unkempt, Chronically Ill, Other (older than stated age) Skin: Normal Color, Warm, Dry, Ecchymosis (about the head in various stages of healing) Head: No Atraumatic, Normacephalic, No Tenderness Eye(s): bilateral: Normal Inspection, PERRL, EOMI Nose: Normal Throat: Normal Neck: No Normal, Other (obese, unable to assess for JVD ) Cardiovascular: Rhythm Regular, No Murmur, Other (tachycardia with rate of 110) Respiratory: Decreased Breath Sounds, No Rales, Other (unable to speak in complete sentances due to dyspnea) Gastrointestinal/Abdominal: No Normal Exam (obese), Bowel Sounds, Soft, No Tenderness, No Guarding, No Rebound Back: Normal Inspection Extremity: Normal ROM, Pedal Edema (2+ brawny pitting), Capillary Refill (normal ), Swelling (2+ brawny pitting at the knees) Pulses: Left Dorsalis Pedis: Normal, Right Dorsalis Pedis: Normal Neurological/Psych: Oriented x3, Normal Motor (5/5 strength in all extremities) ED Course And Treatment - Laboratory Results Result Diagrams: 01/21/18 14:16 01/21/18 14:16 O2 Sat by Pulse Oximetry: 94 (RA) Pulse Ox Interpretation: Normal - Radiology CXR: Interpreted by Me, Viewed By Me CXR Interpretation: Yes: No Acute Disease, Cardiomegaly (borderline) Medical Decision Making Medical Decision Making: Impression: deconditioning, CHF, multiple falls secondary to CHF Patient will likely require admission for pulmonary toileting, treatment of his CHF, we will also do a trauma workup for his head injuries. Plan: - Labs - CXR - CT Head - EKG 14:58: Labs and UA reviewed and are significant for BNP 499, mild anemia, normal WBC, normal renal function, evidence of a UTI. Otherwise studies are unremarkable. 16:16: CT Head shows moderate atrophy but is otherwise negative. 17:00: we were preparing the patient for discharge when the family members expressed that they were unable to care for the patient at home. 17:52: Spoke with Hospitalist and we met some resistance for admitting the patient for social reasons. I will try to work with the family to take the patient home. 18:02: Spoke with patient's sister who is refusing to take the patient home, stating that if we do send him home she will "call the police." The patient's mother, who usually takes care of him, is admitted in [place] for CABG. 19:04: Patient would like to go home and is comfortable ambulating with his walker. Ambulation trial attempted however the patient was unable to do so. 19:40: Spoke with Hospitalist who accepted admission of the patient. Scribe Attestation: Documented by Ni Stevens acting as a scribe for Flor Arceo MD. Scribeddie Attestation: All medical record entries made by the Scribe were at my direction and personally dictated by me. I have reviewed the chart and agree that the record accurately reflects my personal performance of the history, physical exam, medical decision making, and the department course for this patient. I have also personally directed, reviewed, and agree with the discharge instructions and disposition. Disposition - Disposition Disposition: HOSPITALIZED Disposition Time: 19:43 Condition: FAIR - Clinical Impression Clinical Impression: COPD (chronic obstructive pulmonary disease), Dependent edema, Polysubstance ( including opioids) dependence with physiol dependence
--- NOTE | 2018-01-21 14:14 | C.PDOC ---
- HPI Chief Complaint (Nursing): Trauma Past Medical History Vital Signs: Last Vital Signs Temp 100.3 F H 01/21/18 13:44 Pulse 111 H 01/21/18 13:44 Resp 24 01/21/18 13:44 BP 137/70 01/21/18 13:44 Pulse Ox 94 L 01/21/18 13:44 - Medical History PMH: Arthritis (L SHOULDER; L KNEE; B/L HIP), Asthma, CHF, COPD, Diabetes, Emphysema, Fractures (LEFT SHOULDER ORIF LEFT ELBOW RIGHT SHOULDER), Gastritis ( FROM MEDS), HTN, Peripheral Edema, Pneumonia, Chronic Kidney Disease, Sleep Apnea (NO C PAP) Family History: States: Unknown Family Hx - Social History Hx Tobacco Use: No Hx Alcohol Use: No Hx Substance Use: No - Immunization History Hx Tetanus Toxoid Vaccination: Yes Hx Influenza Vaccination: Yes Hx Pneumococcal Vaccination: Yes ED Course And Treatment O2 Sat by Pulse Oximetry: 94 Disposition - Disposition
[2018-01-21 14:25] LABS: BASO % 0.2 % (0.0-2.0); EOS % 0.1 % (0.0-4.0); HEMOGLOBIN 10.7 g/dL (12.0-18.0); LYMPH # 0.9 K/uL (1.0-4.3); LYMPH % 10.2 % (20.0-40.0); MEAN CELL VOLUME 88.7 fL (80.0-94.0); MEAN CORPUSCULAR HEMOGLOBIN 30.3 pg (27.0-31.0); MEAN CORPUSCULAR HGB CONC 34.2 g/dL (33.0-37.0); MEAN PLATELET VOLUME 7.6 fL (7.2-11.7); MONO # 0.5 K/uL (0.0-0.8); MONO % 5.8 % (0.0-10.0); NEUT # 7.5 K/uL (1.8-7.0); NEUT % 83.7 % (50.0-75.0); RBC 3.53 Mil/uL (4.40-5.90); RED CELL DISTRIBUTION WIDTH 14.7 % (11.5-14.5); WHITE BLOOD COUNT 8.9 K/uL (4.8-10.8)
[2018-01-21 14:30] LABS: URINE BACTERIA MOD (<OCC); URINE BILIRUBIN NEGATIVE (NEGATIVE); URINE BLOOD 2+ (NEGATIVE); URINE CLARITY Clear (Clear); URINE COLOR Yellow (YELLOW); URINE GLUCOSE (UA) NORMAL (Normal); URINE LEUKOCYTE ESTERASE TRACE Leu/uL (Negative); URINE PROTEIN NEGATIVE (NEGATIVE); URINE UROBILINOGEN NORMAL mg/dL (0.2-1.0)
[2018-01-21 14:35] LABS: ALB/GLOB RATIO 1.4 (1.0-2.1); ALBUMIN 4.4 g/dL (3.5-5.0); ALT/SGPT 30 U/L (21-72); AST/SGOT 38 U/L (17-59); BLOOD UREA NITROGEN 25 mg/dL (9-20); CALCIUM 10.1 mg/dl (8.6-10.4); GFR AFRICAN-AMERICAN > 60; GFR NON-AFRICAN AMERICAN > 60
[2018-01-21 14:47] LABS: B-TYPE NATRIURETIC PEPTIDE 499 pg/mL (0-900)
--- NOTE | 2018-01-21 15:53 | CT ---
PROCEDURE: CT HEAD WITHOUT CONTRAST. HISTORY: trauma COMPARISON: None available. TECHNIQUE: Axial computed tomography images were obtained through the head/brain without intravenous contrast. Radiation dose: Total exam DLP = 1356.13 mGy-cm. This CT exam was performed using one or more of the following dose reduction techniques: Automated exposure control, adjustment of the mA and/or kV according to patient size, and/or use of iterative reconstruction technique. FINDINGS: HEMORRHAGE: No evidence of acute intracranial hemorrhage. BRAIN: There is low-attenuation fluid along the right aspect of the interhemispheric falx in the frontal region may represent hygroma or bold subdural collection. No evidence of mass lesion or midline shift. Moderate atrophy and moderate white matter changes likely represent chronic microvascular ischemic disease. VENTRICLES: The ventricles are dilated compatible with mild atrophy for the patient's age. CALVARIUM: Unremarkable. PARANASAL SINUSES: Unremarkable as visualized. No significant inflammatory changes. MASTOID AIR CELLS: Unremarkable as visualized. No inflammatory changes. OTHER FINDINGS: None. IMPRESSION: No evidence of acute intracranial hemorrhage mass effect or midline shift. Low-attenuation fluid along the right aspect of the interhemisphericfalx with maximum thickness of 7 millimeter may represent hygroma or old subdural collection. Moderate atrophy and moderate presumed chronic microvascular white matter ischemic disease.
--- NOTE | 2018-01-21 17:21 | RAD ---
PROCEDURE: CHEST RADIOGRAPH, 1 VIEW HISTORY: SOB COMPARISON: 10/16/2017. FINDINGS: LUNGS: Clear. PLEURA: No pneumothorax or pleural fluid seen. CARDIOVASCULAR: No radiographic findings to suggest acute or significant cardiovascular disease. OSSEOUS STRUCTURES: No significant abnormalities. VISUALIZED UPPER ABDOMEN: Normal. OTHER FINDINGS: None. IMPRESSION: No active disease. No acute/significant interval changes.
[2018-01-21] MEDS ORDERED: Sodium Chloride 0.9% 1,000 ML IV SCH (21:00)
[2018-01-21] MEDS ORDERED: Dextrose 50% SYRINGE Inj (50 ml) IV PRN (21:00)
[2018-01-21] MEDS ORDERED: Glucagon Recombinant 1 mg Inj IM PRN (21:00)
--- NOTE | 2018-01-21 21:08 | CP.PCM.HP ---
<Derrick Pérez - Last Filed: 01/21/18 21:02> History of Present Illness - History of Present Illness History of Present Illness: This is a 57 yo male with past medical history of COPD, HTN, DM, CHF presenting to hospital with chief complaint of "I fell." Pt was brought in by ambulance. Pt fell in home at 10 am this morning. Patient was in his basement. He left his walker outside his basement. He normally uses a walker all the time. He says that he rushed to use the bathroom and then fell. He denies chest pain or dizziness or light headed feeling before the fall. He denies any substance use prior to the fall. He says he fell forward onto his knees and then hit his head on the ground. He reports bleeding from his head. He says he was on the ground for a half hour before his nephew found him and called ambulance. He reports having to sleep upright because he cannot tolerate sleeping on his back. PMH: emphysema/COPD, CHF, HTN, DM PSH: plate in elbow, repair of torn meniscus left knee Allergies: cefuroxime, cephalexin, clarithromycin, levaquin, avelox FH: OR in family Home meds: metformin, lisinopril, singulair, pepcid, xanax, crestor, albuterol Social hx: former smoker. quit 20 yrs ago. smoker for 20 yrs. hx of alcoholism. hx of heroin iv abuse. Present on Admission - Present on Admission Any Indicators Present on Admission: No History of DVT/PE: No History of Uncontrolled Diabetes: No Urinary Catheter: No Decubitus Ulcer Present: No Review of Systems - Review of Systems All systems: reviewed and no additional remarkable complaints except Review of Systems: negative except per HPI. Past Patient History - Infectious Disease Hx of Infectious Diseases: None - Past Medical History & Family History Past Medical History?: Yes - Past Social History Smoking Status: Former Smoker Chewing Tobacco Use: No Cigar Use: No Alcohol: None Drugs: Denies Home Situation {Lives}: With Family Domestic Violence: Negative - CARDIAC Hx Congestive Heart Failure: Yes Hx Hypertension: Yes Hx Peripheral Edema: Yes - PULMONARY Hx Asthma: Yes Hx Chronic Obstructive Pulmonary Disease (COPD): Yes Hx Emphysema: Yes Hx Pneumonia: Yes Hx Sleep Apnea: Yes (NO C PAP) - NEUROLOGICAL Hx Neurological Disorder: No - HEENT Hx HEENT Problems: Yes - RENAL Hx Chronic Kidney Disease: Yes - ENDOCRINE/METABOLIC Hx Endocrine Disorders: Yes Hx Diabetes Mellitus Type 2: Yes - HEMATOLOGICAL/ONCOLOGICAL Hx Blood Disorders: Yes Hx Cancer: Yes (BLADDER) - INTEGUMENTARY Hx Dermatological Problems: Yes (DISCOLORED LOWER EXTREMITIES ) - MUSCULOSKELETAL/RHEUMATOLOGICAL Hx Arthritis: Yes (L SHOULDER; L KNEE; B/L HIP) Hx Fractures: Yes (LEFT SHOULDER ORIF LEFT ELBOW RIGHT SHOULDER) - GASTROINTESTINAL Hx Gastritis: Yes (FROM MEDS) - GENITOURINARY/GYNECOLOGICAL Hx Genitourinary Disorders: Yes Hx Bladder Cancer: Yes Hx Hematuria: Yes Other/Comment: BLADDER CANCER - PSYCHIATRIC Hx Substance Use: No - SURGICAL HISTORY Hx Surgeries: Yes Hx Open Reduction Internal Fixation: Yes (LEFT SHOULDER LEFT ELBOW REMOVAL HARDWARE) Hx Orthopedic Surgery: Yes (LEFT KNEE) Other/Comment: TURP; HX: CYSTO WITH BLADDER BX. AND FULG. - ANESTHESIA Hx Anesthesia Reactions: (DIFFICULTY TO AROUSE BUT WAS DISCHARGED) Meds Home Medications: Home Medication List Medication Instructions Recorded Confirmed Type Nitrofurantoin Macrocrystal 50 mg PO BID #14 capsule 01/21/18 Rx [Nitrofurantoin] Allergies/Adverse Reactions: Allergies Allergy/AdvReac Type Severity Reaction Status Date / Time cefuroxime Allergy RASH Verified 01/21/18 13:43 cephalexin Allergy RASH Verified 01/21/18 13:43 clarithromycin Allergy RASH Verified 01/21/18 13:43 levofloxacin Allergy RASH Verified 01/21/18 13:43 moxifloxacin Allergy RASH Verified 01/21/18 13:43 Physical Exam - Constitutional Appears: Unkempt, Older Than Stated Age, Chronically Ill - Head Exam Head Exam: ATRAUMATIC, NORMAL INSPECTION, NORMOCEPHALIC - Eye Exam Eye Exam: EOMI - ENT Exam ENT Exam: Mucous Membranes Moist - Neck Exam Neck exam: Positive for: Full Rom - Respiratory Exam Respiratory Exam: Decreased Breath Sounds. absent: Respiratory Distress - Cardiovascular Exam Cardiovascular Exam: REGULAR RHYTHM, +S1, +S2 - GI/Abdominal Exam GI & Abdominal Exam: Normal Bowel Sounds, Soft. absent: Tenderness - Extremities Exam Extremities exam: Positive for: full ROM. Negative for: normal inspection Additional comments: stasis dermatitis - Back Exam Back exam: NORMAL INSPECTION - Neurological Exam Neurological exam: Alert, CN II-XII Intact, Oriented x3 - Psychiatric Exam Psychiatric exam: Flat Affect - Skin Skin Exam: Dry, Intact, Normal Color, Warm Results - Vital Signs Recent Vital Signs: Last Vital Signs Temp 101 F H 01/21/18 20:44 Pulse 96 H 01/21/18 20:44 Resp 22 01/21/18 20:44 BP 171/77 H 01/21/18 20:44 Pulse Ox 98 01/21/18 20:44 - Labs Result Diagrams: 01/21/18 14:16 01/21/18 14:16 Labs: Laboratory Results - last 24 hr 01/21/18 01/21/18 01/21/18 14:16 14:16 14:16 WBC 8.9 RBC 3.53 L Hgb 10.7 L Hct 31.3 L MCV 88.7 D MCH 30.3 MCHC 34.2 RDW 14.7 H Plt Count 206 MPV 7.6 Neut % (Auto) 83.7 H Lymph % (Auto) 10.2 L [place] % (Auto) 5.8 Eos % (Auto) 0.1 Baso % (Auto) 0.2 Neut # (Auto) 7.5 H Lymph # (Auto) 0.9 L [place] # (Auto) 0.5 Eos # (Auto) 0.0 Baso # (Auto) 0.0 Sodium 139 Potassium 4.4 Chloride 104 Carbon Dioxide 21 L Anion Gap 19 BUN 25 H Creatinine 0.8 Est GFR ( Amer) > 60 Est GFR (Non-Af Amer) > 60 Random Glucose 90 Calcium 10.1 Total Bilirubin 0.7 AST 38 ALT 30 Alkaline Phosphatase 79 Troponin I 0.0550 NT-Pro-B Natriuret Pep 499 Total Protein 7.7 Albumin 4.4 Globulin 3.3 Albumin/Globulin Ratio 1.4 Urine Color Yellow Urine Clarity Clear Urine pH 5.0 Ur Specific [place] 1.017 Urine Protein Negative Urine Glucose (UA) Normal Urine Ketones Trace Urine Blood 2+ H Urine Nitrate Positive H Urine Bilirubin Negative Urine Urobilinogen Normal Ur Leukocyte Esterase Trace Urine WBC (Auto) 7 H Urine RBC (Auto) 13 H Urine Bacteria Mod H Assessment & Plan - Assessment and Plan (Free Text) Assessment: This is a 57 yo male with 1. Mechanical fall -social work referral -fall precautions -trop negative x 1 -toradol given in ER -BUN elevated -will start NS 2. hx of CHF -bnp within normal limits -CXR negative for active CHF 3. UTI -will start macrobid -check urine culture 4. hx of substance use -check urine drug screen -alcohol level 5. hx of DM -will check a1c -hypoglycemia protocol -insulin sliding scale 6. hx of COPD -duonebs PRN -on nasal cannula and saturating well 6. GI/DVT ppx -lovenox sc daily -pepcid daily <David Duarte - Last Filed: 01/22/18 06:51> Results - Vital Signs Recent Vital Signs: Last Vital Signs Temp 98 F 01/21/18 23:21 Pulse 79 01/21/18 23:21 Resp 18 01/21/18 23:21 BP 133/71 01/21/18 23:21 Pulse Ox 94 L 01/21/18 23:32 - Labs Result Diagrams: 01/21/18 14:16 01/21/18 14:16 Labs: Laboratory Results - last 24 hr 01/21/18 01/21/18 01/21/18 14:16 14:16 14:16 WBC 8.9 RBC 3.53 L Hgb 10.7 L Hct 31.3 L MCV 88.7 D MCH 30.3 MCHC 34.2 RDW 14.7 H Plt Count 206 MPV 7.6 Neut % (Auto) 83.7 H Lymph % (Auto) 10.2 L [place] % (Auto) 5.8 Eos % (Auto) 0.1 Baso % (Auto) 0.2 Neut # (Auto) 7.5 H Lymph # (Auto) 0.9 L [place] # (Auto) 0.5 Eos # (Auto) 0.0 Baso # (Auto) 0.0 Sodium 139 Potassium 4.4 Chloride 104 Carbon Dioxide 21 L Anion Gap 19 BUN 25 H Creatinine 0.8 Est GFR ( Amer) > 60 Est GFR (Non-Af Amer) > 60 Random Glucose 90 Calcium 10.1 Total Bilirubin 0.7 AST 38 ALT 30 Alkaline Phosphatase 79 Troponin I 0.0550 NT-Pro-B Natriuret Pep 499 Total Protein 7.7 Albumin 4.4 Globulin 3.3 Albumin/Globulin Ratio 1.4 Urine Color Yellow Urine Clarity Clear Urine pH 5.0 Ur Specific [place] 1.017 Urine Protein Negative Urine Glucose (UA) Normal Urine Ketones Trace Urine Blood 2+ H Urine Nitrate Positive H Urine Bilirubin Negative Urine Urobilinogen Normal Ur Leukocyte Esterase Trace Urine WBC (Auto) 7 H Urine RBC (Auto) 13 H Urine Bacteria Mod H Fluid Type Synovial WBC Synovial RBC Synovial Neutrophils Synovial Lymphocytes Synov Monos/Macrophage Synovial Fluid Comment 01/21/18 23:17 WBC RBC Hgb Hct MCV MCH MCHC RDW Plt Count MPV Neut % (Auto) Lymph % (Auto) [place] % (Auto) Eos % (Auto) Baso % (Auto) Neut # (Auto) Lymph # (Auto) [place] # (Auto) Eos # (Auto) Baso # (Auto) Sodium Potassium Chloride Carbon Dioxide Anion Gap BUN Creatinine Est GFR ( Amer) Est GFR (Non-Af Amer) Random Glucose Calcium Total Bilirubin AST ALT Alkaline Phosphatase Troponin I NT-Pro-B Natriuret Pep Total Protein Albumin Globulin Albumin/Globulin Ratio Urine Color Urine Clarity Urine pH Ur Specific [place] Urine Protein Urine Glucose (UA) Urine Ketones Urine Blood Urine Nitrate Urine Bilirubin Urine Urobilinogen Ur Leukocyte Esterase Urine WBC (Auto) Urine RBC (Auto) Urine Bacteria Fluid Type Synovial fluid Synovial WBC 62944.0 H Synovial RBC 7498906.0 H Synovial Neutrophils 67.0 H Synovial Lymphocytes 23.0 H Synov Monos/Macrophage 10 H Synovial Fluid Comment Attending/Attestation - Attestation I have personally seen and examined this patient.: Yes I have fully participated in the care of the patient.: Yes I have reviewed all pertinent clinical information: Yes Notes (Text): Reason for presentation is fall and ambulatory dysfunction, at baseline patient has h/o b/l AVN of hips, walks only with walker, h/o bladder tumor non invasive with every 3 month shaving done by Dr. Bellamy, h/o dm uses metformin, h/o gout, h /o being on opiods percocet qid with oxycontin 20mg bid need to be confirmed by [facility] pharmacy, h/o htn, recent negative stress test, chronic leg edema, multiple med allergies as above. Patient was febrile in ER, right knee was swollen more then left with exam suggesting warm and fluid collection. Right knee tap done as clean procedure 35ml of bloody fluid obtained, with reduction in swelling and softness in the knee and sent for culture, gram stain, cells and crystals. Patient started empirically on vancomycin and doxycycline. CTA PE study negative for pna/pe, Knee ct negative for facture. Plan F/u results of the synovial fluid Emperic abx Pain control with opiods, if needed colchicine, steroids, nsaids could be added , opiod dose need to be confirmed GI/DVT prophylaxis PT/OT, ? need of rehab Accuchecks See orders for detail
[2018-01-21] MEDS ORDERED: Morphine 4 MG/ML VIAL IVP STA (22:25)
[2018-01-21] MEDS: (Novolin R) Insulin Human Regular 100 units/ml vial SC SCH (22:38)
[2018-01-21 23:20] LABS: FLUID TYPE SYNOVIAL FLUID
[2018-01-21] MEDS ORDERED: Iodixanol 320 MG/ML 100 ML BOTTLE IV ONE (23:30)
[2018-01-21 23:35] LABS: SF GROSS APPEARANCE BLOODY (CLEAR)
[2018-01-22 00:03] LABS: SYNOVIAL FLUID MONO/MACROPHAGE 10 % (0-0)
[2018-01-22] MEDS: Vancomycin 1 GM in Sodium Chloride 0.9% 200 ML IVPB SCH ×2 (01:07→23:12)
[2018-01-22] MEDS: Albuterol-Ipratrop 3 mg / 0.5 (3 ml) UD INH PRN ×2 (01:13→19:44)
--- NOTE | 2018-01-22 01:51 | CT ---
EXAM: CT Angiography Chest With Intravenous Contrast CLINICAL HISTORY: 57 years old, male; Pain; Chest pain; Prior surgery; Additional info: Sob/fever TECHNIQUE: Axial computed tomographic angiography images of the chest with intravenous contrast using pulmonary embolism protocol. All CT scans at this facility use one or more dose reduction techniques, viz.: automated exposure control; ma/kV adjustment per patient size (including targeted exams where dose is matched to indication; i.e. head); or iterative reconstruction technique. MIP reconstructed images were created and reviewed. Coronal and sagittal reformatted images were created and reviewed. CONTRAST: 100 mL of [id number] administered intravenously. COMPARISON: No relevant prior studies available. FINDINGS: Pulmonary arteries: No pulmonary embolism. The distal segmental branches are limited by motion artifact. Aorta: No acute findings. No thoracic aortic aneurysm. Lungs: Right upper lobe calcified granuloma. No mass. No focal consolidation. Pleural space: Unremarkable. No significant effusion. No pneumothorax. Heart: Coronary artery calcification. No cardiomegaly. No significant pericardial effusion. No evidence of RV dysfunction. Bones/joints: Multiple chronic bilateral rib fractures. No acute fracture. No dislocation. Soft tissues: Unremarkable. Lymph nodes: Unremarkable. No enlarged lymph nodes. IMPRESSION: No pulmonary embolism. No focal consolidation. Multiple chronic bilateral rib fractures.
--- NOTE | 2018-01-22 02:00 | CT ---
EXAM: CT Right Lower Extremity Without Intravenous Contrast, Knee CLINICAL HISTORY: 57 years old, male; Pain; Knee; Bilatera; Prior surgery; Additional info: Bloody knee tap TECHNIQUE: Axial computed tomography images of the right knee without intravenous contrast. All CT scans at this facility use one or more dose reduction techniques, viz.: automated exposure control; ma/kV adjustment per patient size (including targeted exams where dose is matched to indication; i.e. head); or iterative reconstruction technique. Coronal and sagittal reformatted images were created and reviewed. COMPARISON: No relevant prior studies available. FINDINGS: Bones/joints: Small right joint effusion. No acute fracture. No dislocation. Soft tissues: Diffuse soft tissue edema with stranding of the subcutaneous fat. No focal fluid collection or abscess. No soft tissue gas. The vasculature demonstrates diffuse severe atherosclerotic calcification. IMPRESSION: Diffuse soft tissue edema. Small right joint effusion. EXAM: CT Left Lower Extremity Without Intravenous Contrast, Knee CLINICAL HISTORY: 57 years old, male; Pain; Knee; Bilatera; Prior surgery; Additional info: Bloody knee tap TECHNIQUE: Axial computed tomography images of the left knee without intravenous contrast. All CT scans at this facility use one or more dose reduction techniques, viz.: automated exposure control; ma/kV adjustment per patient size (including targeted exams where dose is matched to indication; i.e. head); or iterative reconstruction technique. Coronal and sagittal reformatted images were created and reviewed. COMPARISON: No relevant prior studies available. FINDINGS: Bones/joints: Unremarkable. No acute fracture. No dislocation. Soft tissues: Diffuse soft tissue edema with stranding of the subcutaneous fat. No focal fluid collection or abscess. No soft tissue gas. The vasculature demonstrates diffuse severe atherosclerotic calcification. IMPRESSION: Diffuse soft tissue edema.
--- NOTE | 2018-01-22 07:48 | CP.PCM.PN ---
<OlmanTamiko SMandy - Last Filed: 01/22/18 17:57> Subjective - Date & Time of Evaluation Date of Evaluation: 01/22/18 Time of Evaluation: 07:00 - Subjective Subjective: Medicine Progress Note: Patient was seen and examined at bedside in the AM. Patient continues to report right knee pain and bilateral lower extremity swelling. Patient denies fever, chills, chest pain, shortness of breath, cough, abdominal pain, nausea/vomiting , diarrhea/constipation. Patient was NPO overnight. In addition to history provided on admission, patient also reports history of bladder cancer for which he follows up with Dr. Bellamy. Last procedure with Dr. Bellamy was 4 months ago. He states he sees pain management Dr. Koehler. PMD is Dr. Triston Encarnacion. Objective - Vital Signs/Intake and Output Vital Signs (last 24 hours): Temp Pulse Resp BP Pulse Ox 98 F 79 18 133/71 94 L 01/21/18 23:21 01/21/18 23:21 01/21/18 23:21 01/21/18 23:21 01/21/18 23:32 Intake and Output: 01/22/18 01/22/18 06:59 18:59 Intake Total 650 Output Total 500 Balance 150 - Medications Medications: Current Medications Albuterol/Ipratropium (Duoneb 3 Mg/0.5 Mg (3 Ml) Ud) 3 ml INH RQ6 PRN PRN Reason: Shortness of Breath Last Admin: 01/22/18 01:13 Dose: 3 ml Allopurinol (Zyloprim) 300 mg PO DAILY [facility] Dextrose (Dextrose 50% Inj) 0 ml IV STAT PRN; Protocol PRN Reason: Hypoglycemia Protocol Dextrose (Glutose 15) 0 gm PO ONCE PRN; Protocol PRN Reason: Hypoglycemia Protocol Enoxaparin Sodium (Lovenox) 40 mg SC DAILY [facility] Ergocalciferol (Drisdol 50,000 Intl Units Cap) 1 cap PO QWK [facility] Famotidine (Pepcid) 20 mg PO DAILY [facility] Glucagon (Glucagen Diagnostic Kit) 0 mg IM STAT PRN; Protocol PRN Reason: Hypoglycemia Protocol Home Med (Fluticasone/Vilanterol [Breo Ellipta 100-25 Mcg Inh]) 1 each IH DAILY [facility] Sodium Chloride (Sodium Chloride 0.9%) 1,000 mls @ 90 mls/hr IV .Q11H7M [facility] Last Admin: 01/22/18 01:05 Dose: 90 mls/hr Dextrose (Dextrose 5% In Water 1000 Ml) 1,000 mls @ 0 mls/hr IV .Q0M PRN; Protocol; Per Protocol PRN Reason: Hypoglycemia Protocol Vancomycin HCl 1 gm/ Sodium (Chloride) 200 mls @ 133.333 mls/hr IVPB Q24H [facility] PRN Reason: Protocol Last Admin: 01/22/18 01:07 Dose: 133.333 mls/hr Insulin Human Regular (Novolin R) 0 unit SC ACHS [facility] PRN Reason: Protocol Last Admin: 01/21/18 22:38 Dose: Not Given Montelukast Sodium (Singulair) 10 mg PO HS [facility] Oxycodone/Acetaminophen (Percocet 5/325 Mg Tab) 1 tab PO Q4H PRN PRN Reason: Pain, severe (8-10) Stop: 01/24/18 23:00 - Labs Labs: 01/21/18 14:16 01/21/18 14:16 - Constitutional Appears: In Acute Distress, Older Than Stated Age - Head Exam Head Exam: ATRAUMATIC, NORMAL INSPECTION - Eye Exam Eye Exam: EOMI, Normal appearance, PERRL. absent: Scleral icterus Pupil Exam: NORMAL ACCOMODATION - ENT Exam ENT Exam: Mucous Membranes Moist - Respiratory Exam Respiratory Exam: Clear to Ausculation Bilateral, NORMAL BREATHING PATTERN. absent: Rhonchi, Wheezes - Cardiovascular Exam Cardiovascular Exam: REGULAR RHYTHM, RRR, +S1, +S2 - GI/Abdominal Exam GI & Abdominal Exam: Soft, Normal Bowel Sounds. absent: Tenderness - Extremities Exam Extremities Exam: Joint Swelling (right knee swelling and tenderness ), Pedal Edema (+2 pedal edema bilateral), Tenderness - Neurological Exam Neurological Exam: Alert, Awake, Oriented x3 - Psychiatric Exam Psychiatric exam: Normal Affect, Normal Mood - Skin Skin Exam: Warm Additional comments: bilateral venous stasis LE Assessment and Plan - Assessment and Plan (Free Text) Assessment: 57 year old male with past medical history of CHF, COPD, HTN, DM, bladder CA with suspected septic arthritis of right knee s/p mechanical fall 01/21/18. 1.) Septic arthritis - Orthopedic surgery consulted: Dr. Vogel --> help appreciated - ID consulted: Dr. Rodriguez --> help appreciated - WBC 8.9 --> 7.8 - Knee CT (01/21/18): Diffuse soft tissue edema. Small right joint effusion - f/u knee x-ray 3 views as ordered by Ortho - Right knee synovial fluid aspirated on 01/21/18 on admission * Negative crystals * WBC 10,962; RBC 1,132,220; Neutrophil 67, Lymphocyte 23, Monos/macorphage 10 * f/u cell count/differential, uric acid - Lactic acid (01/22/18): 0.7 - Wound culture pending * gram stain shows moderate PMN WBCs, no organisms seen - f/u blood culture - Medications * Vancomycin 1gm IVPB Q24H (started 01/21/18) 2.) s/p Mechanical Fall - Head CT without contrast (01/21/18): No evidence of acute intracranial hemorrhage mass effect or midline shift. Low-attenuation fluid along the right aspect of the interhemispheric falx with maximum thickness of 7 millimeter may represent hygroma or old subdural collection. Moderate atrophy and moderate presumed chronic microvascular white matter ischemic disease. - PT/OT evaluation for gait dysfunction 3.) Thrombocytopenia - Platelet count 206 --> 112 - possibly secondary to right knee fluid aspiration which resulted in high RBC ( [id number]) - f/u heparin-induced platelet antibody, serotonin level - f/u PT/PTT and daily CBC - Hold anticoagulation 4.) Bilateral lower extremity edema secondary to chronic venous insufficiency - CT Angio Chest PE protocol (01/21/18): No pulmonary embolism. No focal consolidation. Multiple chronic bilateral rib fractures. - f/u venous duplex - Medications * Lac-Hydrin 12% Lotion apply to area BID 5.) Chronic pain syndrome - Medications verified through patient's pharmacy [facility] ([phone] ) - UDS positive for opiates and benzodiazepines - Alcohol quantitative < 10 - Medications * Xanax 1mg PO BID * Lidocaine 5% topical apply to area BID * Oxycontin 20mg PO Q12 * Percocet 5/325 PO Q4H PRN 6.) History of bladder CA - Stable at this time - Urine C&S ordered and pending - Urology Dr. Bellamy consult deferred at this time, patient asymptomatic -- will consult appropriately - Continue home medication * Flomax 0.4mg PO QD 7.) History of CHF - Cardiology consulted: Dr. 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 Shah (patient's obstetrics scrub nurse) --> help appreciated - Continue home medications * Duoneb 3ml INH RQ6 PRN * Advair Diskus 250/50 1 puff INH RQ12 * Singulair 10mg PO QHS * Prednisone 5mg PO QD 11.) History of gout - Continue home medication * Allopurinol 300mg PO QD 12.) Prophylaxis - SCDs contraindicated due to bilateral lower extremity swelling - VTE prophylaxis contraindicated due to thrombocytopenia - Consistent carbohydrate diet - Glucerna supplement as ordered - Florastor 250mg PO BID - Colace 100mg PO TID - Pepcid 20mg PO BID - PT/OT evaluation Case discussed with Dr. Allison Thurman PGY-1 <Tabby Cooper V - Last Filed: 01/23/18 23:59> Objective - Vital Signs/Intake and Output Vital Signs (last 24 hours): Temp Pulse Resp BP Pulse Ox 97.9 F 99 H 20 174/83 H 96 01/23/18 15:27 01/23/18 17:30 01/23/18 15:27 01/23/18 15:27 01/23/18 15:27 Intake and Output: 01/23/18 01/24/18 18:59 06:59 Intake Total 100 Output Total 1200 1100 Balance -1100 -1100 - Medications Medications: Current Medications Albuterol/Ipratropium (Duoneb 3 Mg/0.5 Mg (3 Ml) Ud) 3 ml INH RQ4 [facility] Last Admin: 01/23/18 19:48 Dose: 3 ml Allopurinol (Zyloprim) 300 mg PO DAILY [facility] Last Admin: 01/23/18 11:06 Dose: 300 mg Alprazolam (Xanax) 1 mg PO BID [facility] Last Admin: 01/23/18 17:18 Dose: 1 mg Carvedilol (Coreg) 6.25 mg PO BID [facility] Dextrose (Dextrose 50% Inj) 0 ml IV STAT PRN; Protocol PRN Reason: Hypoglycemia Protocol Dextrose (Glutose 15) 0 gm PO ONCE PRN; Protocol PRN Reason: Hypoglycemia Protocol Docusate Sodium (Colace) 100 mg PO TID [facility] Last Admin: 01/23/18 17:15 Dose: 100 mg Ergocalciferol (Drisdol 50,000 Intl Units Cap) 1 cap PO QWK [facility] Famotidine (Pepcid) 20 mg PO BID [facility] Last Admin: 01/23/18 17:24 Dose: 20 mg Ferrous Sulfate (Feosol) 325 mg PO DAILY [facility] Last Admin: 01/23/18 11:04 Dose: 325 mg Furosemide (Lasix) 40 mg PO DAILY [facility] Last Admin: 01/23/18 11:06 Dose: 40 mg Glucagon (Glucagen Diagnostic Kit) 0 mg IM STAT PRN; Protocol PRN Reason: Hypoglycemia Protocol Heparin Sodium (Porcine) (Heparin) 5,000 units SC Q8 [facility] Last Admin: 01/23/18 22:14 Dose: 5,000 units Dextrose (Dextrose 5% In Water 1000 Ml) 1,000 mls @ 0 mls/hr IV .Q0M PRN; Protocol; Per Protocol PRN Reason: Hypoglycemia Protocol Insulin Human Regular (Novolin R) 0 unit SC ACHS [facility] PRN Reason: Protocol Last Admin: 01/23/18 22:06 Dose: Not Given Lactic Acid (Lac-Hydrin 12% Lotion (225 G)) 0 gm EXT BID [facility] Last Admin: 01/23/18 18:29 Dose: 1 applic Lidocaine (Lidoderm) 1 ea TD DAILY [facility] Last Admin: 01/23/18 12:28 Dose: 1 ea Losartan Potassium (Cozaar) 100 mg PO DAILY [facility] Last Admin: 01/23/18 10:55 Dose: Not Given Methylprednisolone (Solu-Medrol) 40 mg IV Q12 [facility] Last Admin: 01/23/18 22:08 Dose: 40 mg Montelukast Sodium (Singulair) 10 mg PO HS [facility] Last Admin: 01/23/18 22:07 Dose: 10 mg Oxycodone HCl (Oxycontin Extended Release Tab) 20 mg PO Q12 [facility] Last Admin: 01/23/18 22:06 Dose: 20 mg Oxycodone/Acetaminophen (Percocet 5/325 Mg Tab) 1 tab PO Q4H PRN PRN Reason: Pain, severe (8-10) Stop: 01/24/18 23:00 Last Admin: 01/23/18 17:17 Dose: 1 tab Prednisone (Prednisone Tab) 5 mg PO DAILY [facility] Last Admin: 01/23/18 11:06 Dose: 5 mg Saccharomyces Boulardii (Florastor) 250 mg PO BID [facility] Last Admin: 01/23/18 17:16 Dose: 250 mg Fluticasone/Salmeterol (Advair Diskus 250/50) 1 puff INH RQ12 [facility] Tamsulosin HCl (Flomax) 0.4 mg PO DAILY [facility] Last Admin: 01/23/18 11:05 Dose: 0.4 mg - Labs Labs: 01/23/18 08:09 01/23/18 08:09 PT 13.0 SECONDS (9.7-12.2) H 01/22/18 22:46 INR 1.2 01/22/18 22:46 APTT 29 SECONDS (21-34) 01/22/18 22:46 Attending/Attestation - Attestation I have personally seen and examined this patient.: Yes I have fully participated in the care of the patient.: Yes I have reviewed all pertinent clinical information, including history, physical exam and plan: Yes Notes (Text): This is late computer entry for 01/22/18. Patient seen, examined and case discussed with medical office coordinator. 57 year old male with past medical history of CHF, COPD, HTN, DM, bladder CA, b/ l hip avascular necrosis who had a fall day prior to admission; came to the emergency room following a second fall wherein he feel on his knees and prominent swelling over the right knee. Patient underwent Knee aspiration by my colleague on admission; fluid was sent to for gram statin, culture, and cell count. Concern was for possible septic arthritis. Patient notes he sees a pain management doctor given hx of b/l hop avascular necrosis, furnace installer helper Dr. owen, obstetrics scrub nurse, Dr Shah, and sees Dr. Bellamy about every 3-4 months of for bladder cancer. Patient seen on 3rd floor, patient is tachypneic with shortness of breathe; in light of chf/copd; advised to move to telemetry for further monitoring. Resident will f/u with patient's pharmacy to confirm pain medication. ID consult given patient has multiple allergies to medications; patient is currently on Vancomycin. Ortho consult given consideration if patient reporting persisting right knee pain, and if needs further intervention. Patient has mild thrombocytopenia, ordered for hit/consuelo, and held dvt ppx. Patient does have appreciable leg swelling b/l with pitting edema; will order venous dopplers r/o dvt. Patient was seen and evaluated by wound care nurse, Amos Castaneda as well. Patient's blood pressure uncontrolled; suspecting exacerbated by knee pain. Will attempt to pain control. Will order for pt/ot and velma evaluation Agree with the assessment/plan as written by the resident.
[2018-01-22] MEDS: (Novolin R) Insulin Human Regular 100 units/ml vial SC SCH ×4 (08:37→21:37)
[2018-01-22 08:55] LABS: BASO % 0.6 % (0.0-2.0); EOS # 0.1 K/uL (0.0-0.7); EOS % 1.5 % (0.0-4.0); HEMOGLOBIN 8.9 g/dL (12.0-18.0); LYMPH # 1.5 K/uL (1.0-4.3); LYMPH % 18.9 % (20.0-40.0); MEAN CELL VOLUME 88.4 fL (80.0-94.0); MEAN CORPUSCULAR HEMOGLOBIN 30.9 pg (27.0-31.0); MEAN CORPUSCULAR HGB CONC 34.9 g/dL (33.0-37.0); MEAN PLATELET VOLUME 8.3 fL (7.2-11.7); MONO # 0.5 K/uL (0.0-0.8); MONO % 6.6 % (0.0-10.0); NEUT # 5.6 K/uL (1.8-7.0); NEUT % 72.4 % (50.0-75.0); RBC 2.9 Mil/uL (4.40-5.90); RED CELL DISTRIBUTION WIDTH 14.4 % (11.5-14.5); WHITE BLOOD COUNT 7.8 K/uL (4.8-10.8)
[2018-01-22 09:06] LABS: ALB/GLOB RATIO 1.3 (1.0-2.1); ALBUMIN 3.7 g/dL (3.5-5.0); ALT/SGPT 30 U/L (21-72); AST/SGOT 63 U/L (17-59); BLOOD UREA NITROGEN 16 mg/dL (9-20); CALCIUM 9.7 mg/dl (8.6-10.4); GFR AFRICAN-AMERICAN > 60; GFR NON-AFRICAN AMERICAN > 60
[2018-01-22 09:55] LABS: BARBITURATES, UR NEGATIVE (NEGATIVE); PHENCYCLIDINE, UR NEGATIVE (NEGATIVE)
[2018-01-22] MEDS ORDERED: Enoxaparin 40 mg Syringe SC SCH (10:00)
[2018-01-22 10:14] LABS: BENZODIAZEPINES, UR POSITIVE (NEGATIVE); OPIATES, UR POSITIVE (NEGATIVE)
[2018-01-22] MEDS: Oxycodone/Acetaminophen 5/325 mg Tab PO PRN ×2 (10:50→17:41)
--- NOTE | 2018-01-22 12:07 | CARD ---
APPROVED REPORT EKG Measurement Heart [id number] <Conclusion> Sinus tachycardia Nonspecific ST abnormality Abnormal ECG
[2018-01-22 12:43] LABS: FLUID CRYSTALS NEGATIVE (NEGATIVE)
--- NOTE | 2018-01-22 15:22 | CP.PCM.CON ---
History of Present Illness - History of Present Illness History of Present Illness: Orthopedic consult Patient is a 57 y/o male with PMH of COPD, HTN, CHF and bladder CA who was admitted due to trauma to head and knee after a fall at home. He states that he normally walks with the use of a walker and attempted to enter his bathroom which does not allow his walker to fit. As a result, he lost his balance and fell directly onto his knees and struck his head on the ground. He notes that he was able to bear weight following the injury with some pain in the right knee with slowly worsened. While being evaluated in the ER, his right knee was aspirated due to effusion and warmth. The pain has progressively worsened since then. Dr. Mayo was consulted for orthopedic evaluation. He describes his pain as sharp and stabbing in quality and constant. The pain is located diffuse about the anterior aspect of the knee. The pain is associated with swelling and effusion. The pain worsens with bending and straightening and alleviates with rest. He denies any radiation of pain, numbness or tingling. He also denies CP/N/V/D/fever/dysuria/melena. He admits to [facility] due to fall and SOB due to COPD. Review of Systems - Review of Systems All systems: reviewed and no additional remarkable complaints except Review of Systems: as per HPI Past Patient History - Infectious Disease Hx of Infectious Diseases: None - Past Medical History & Family History Past Medical History?: Yes Past Family History: Reviewed and not pertinent - Past Social History Smoking Status: Former Smoker Alcohol: None Drugs: Denies - CARDIAC Hx Congestive Heart Failure: Yes Hx Hypertension: Yes - PULMONARY Hx Chronic Obstructive Pulmonary Disease (COPD): Yes - NEUROLOGICAL Hx Neurological Disorder: No - HEENT Hx HEENT Problems: Yes - RENAL Hx Chronic Kidney Disease: Yes - ENDOCRINE/METABOLIC Hx Endocrine Disorders: Yes Hx Diabetes Mellitus Type 2: Yes - HEMATOLOGICAL/ONCOLOGICAL Hx Blood Disorders: Yes Hx Cancer: Yes (BLADDER) - INTEGUMENTARY Hx Dermatological Problems: Yes (DISCOLORED LOWER EXTREMITIES ) - MUSCULOSKELETAL/RHEUMATOLOGICAL Hx Arthritis: Yes (L SHOULDER; L KNEE; B/L HIP) - GASTROINTESTINAL Hx Gastritis: Yes (FROM MEDS) - GENITOURINARY/GYNECOLOGICAL Hx Genitourinary Disorders: Yes Hx Bladder Cancer: Yes Hx Hematuria: Yes Other/Comment: BLADDER CANCER - PSYCHIATRIC Hx Substance Use: No - SURGICAL HISTORY Hx Surgeries: Yes Hx Open Reduction Internal Fixation: Yes (LEFT SHOULDER LEFT ELBOW REMOVAL HARDWARE) Hx Orthopedic Surgery: Yes (LEFT KNEE) Other/Comment: TURP; HX: CYSTO WITH BLADDER BX. AND FULG. - ANESTHESIA Hx Anesthesia Reactions: (DIFFICULTY TO AROUSE BUT WAS DISCHARGED) Meds Home Medications: Home Medication List Medication Instructions Recorded Confirmed Type Nitrofurantoin Macrocrystal 50 mg PO BID #14 capsule 01/21/18 Rx [Nitrofurantoin] Allergies/Adverse Reactions: Allergies Allergy/AdvReac Type Severity Reaction Status Date / Time cefuroxime Allergy RASH Verified 01/21/18 13:43 cephalexin Allergy RASH Verified 01/21/18 13:43 clarithromycin Allergy RASH Verified 01/21/18 13:43 levofloxacin Allergy RASH Verified 01/21/18 13:43 moxifloxacin Allergy RASH Verified 01/21/18 13:43 - Medications Medications: Current Medications Albuterol/Ipratropium (Duoneb 3 Mg/0.5 Mg (3 Ml) Ud) 3 ml INH RQ6 PRN PRN Reason: Shortness of Breath Last Admin: 01/22/18 01:13 Dose: 3 ml Allopurinol (Zyloprim) 300 mg PO DAILY [facility] Last Admin: 01/22/18 10:49 Dose: 300 mg Dextrose (Dextrose 50% Inj) 0 ml IV STAT PRN; Protocol PRN Reason: Hypoglycemia Protocol Dextrose (Glutose 15) 0 gm PO ONCE PRN; Protocol PRN Reason: Hypoglycemia Protocol Ergocalciferol (Drisdol 50,000 Intl Units Cap) 1 cap PO QWK [facility] Famotidine (Pepcid) 20 mg PO DAILY [facility] Last Admin: 01/22/18 10:49 Dose: 20 mg Glucagon (Glucagen Diagnostic Kit) 0 mg IM STAT PRN; Protocol PRN Reason: Hypoglycemia Protocol Dextrose (Dextrose 5% In Water 1000 Ml) 1,000 mls @ 0 mls/hr IV .Q0M PRN; Protocol; Per Protocol PRN Reason: Hypoglycemia Protocol Vancomycin HCl 1 gm/ Sodium (Chloride) 200 mls @ 133.333 mls/hr IVPB Q24H [facility] PRN Reason: Protocol Last Admin: 01/22/18 01:07 Dose: 133.333 mls/hr Insulin Human Regular (Novolin R) 0 unit SC ACHS [facility] PRN Reason: Protocol Last Admin: 01/22/18 12:15 Dose: Not Given Lactic Acid (Lac-Hydrin 12% Lotion (225 G)) 0 gm EXT BID [facility] Montelukast Sodium (Singulair) 10 mg PO HS [facility] Oxycodone/Acetaminophen (Percocet 5/325 Mg Tab) 1 tab PO Q4H PRN PRN Reason: Pain, severe (8-10) Stop: 01/24/18 23:00 Last Admin: 01/22/18 10:50 Dose: 1 tab Fluticasone/Salmeterol (Advair Diskus 250/50) 1 puff INH RQ12 [facility] Physical Exam - Constitutional Appears: Well, No Acute Distress - Head Exam Head Exam: NORMOCEPHALIC Additional comments: abrasion to forehead - Eye Exam Eye Exam: EOMI, Normal appearance, PERRL - ENT Exam ENT Exam: Mucous Membranes Moist, Normal Exam - Respiratory Exam Respiratory Exam: Clear to Auscultation Bilateral, NORMAL BREATHING PATTERN - Cardiovascular Exam Cardiovascular Exam: REGULAR RHYTHM - GI/Abdominal Exam GI & Abdominal Exam: Normal Bowel Sounds, Soft - Extremities Exam Additional comments: R knee: moderate swelling, moderate effusion, no warmth, no erythema, no lesions , no masses tenderness over patella, patella tendon, medial and lateral joint lines ROM limited 2nd to pain 30-50 deg sensation intact SP/DP/TN motor intact EHL/FHL/TA/G, limited Q/HS 2nd to pain pedal pulses intact comp soft NT L knee: no swelling, no effusion, no warmth, no erythema, no lesions, no masses no tenderness over patella, patella tendon, medial and lateral joint lines ROM 0-100 deg sensation intact SP/DP/TN motor intact EHL/FHL/TA/G/Q/HS pedal pulses intact comp soft NT - Neurological Exam Neurological exam: Alert, Oriented x3 - Psychiatric Exam Psychiatric exam: Normal Affect, Normal Mood Results - Vital Signs Recent Vital Signs: Last Vital Signs Temp 98.9 F 01/22/18 08:29 Pulse 91 H 01/22/18 08:29 Resp 20 01/22/18 08:29 BP 165/75 H 01/22/18 08:29 Pulse Ox 98 01/22/18 08:29 - Labs Result Diagrams: 01/22/18 08:45 01/22/18 08:45 Labs: Laboratory Results - last 24 hr 01/21/18 01/21/18 01/22/18 23:17 23:17 04:00 WBC RBC Hgb Hct MCV MCH MCHC RDW Plt Count MPV Neut % (Auto) Lymph % (Auto) [place] % (Auto) Eos % (Auto) Baso % (Auto) Neut # (Auto) Lymph # (Auto) [place] # (Auto) Eos # (Auto) Baso # (Auto) Differential Comment Sodium Potassium Chloride Carbon Dioxide Anion Gap BUN Creatinine Est GFR ( Amer) Est GFR (Non-Af Amer) Random Glucose Hemoglobin A1c Lactic Acid 0.7 Calcium Total Bilirubin AST ALT Alkaline Phosphatase Total Protein Albumin Globulin Albumin/Globulin Ratio Fluid Type Synovial fluid Fluid Crystals Negative Synovial WBC 43250.0 H Synovial RBC 7435756.0 H Synovial Neutrophils 67.0 H Synovial Lymphocytes 23.0 H Synov Monos/Macrophage 10 H Synovial Fluid Comment Urine Opiates Screen Urine Methadone Screen Ur Barbiturates Screen Ur Phencyclidine Scrn Ur Amphetamines Screen U Benzodiazepines Scrn U Oth Cocaine Metabols U Cannabinoids Screen Alcohol, Quantitative 01/22/18 01/22/18 01/22/18 08:45 08:45 08:45 WBC 7.8 RBC 2.90 L Hgb 8.9 L Hct 25.6 L MCV 88.4 MCH 30.9 MCHC 34.9 RDW 14.4 Plt Count 112 L D MPV 8.3 Neut % (Auto) 72.4 Lymph % (Auto) 18.9 L [place] % (Auto) 6.6 Eos % (Auto) 1.5 Baso % (Auto) 0.6 Neut # (Auto) 5.6 Lymph # (Auto) 1.5 [place] # (Auto) 0.5 Eos # (Auto) 0.1 Baso # (Auto) 0.0 Differential Comment Sodium 143 Potassium 3.6 Chloride 105 Carbon Dioxide 23 Anion Gap 19 BUN 16 Creatinine 0.6 L Est GFR ( Amer) > 60 Est GFR (Non-Af Amer) > 60 Random Glucose 105 Hemoglobin A1c 5.7 Lactic Acid Calcium 9.7 Total Bilirubin 0.8 AST 63 H D ALT 30 Alkaline Phosphatase 62 Total Protein 6.6 Albumin 3.7 Globulin 2.9 Albumin/Globulin Ratio 1.3 Fluid Type Fluid Crystals Synovial WBC Synovial RBC Synovial Neutrophils Synovial Lymphocytes Synov Monos/Macrophage Synovial Fluid Comment Urine Opiates Screen Urine Methadone Screen Ur Barbiturates Screen Ur Phencyclidine Scrn Ur Amphetamines Screen U Benzodiazepines Scrn U Oth Cocaine Metabols U Cannabinoids Screen Alcohol, Quantitative < 10 01/22/18 09:22 WBC RBC Hgb Hct MCV MCH MCHC RDW Plt Count MPV Neut % (Auto) Lymph % (Auto) [place] % (Auto) Eos % (Auto) Baso % (Auto) Neut # (Auto) Lymph # (Auto) [place] # (Auto) Eos # (Auto) Baso # (Auto) Differential Comment Sodium Potassium Chloride Carbon Dioxide Anion Gap BUN Creatinine Est GFR ( Amer) Est GFR (Non-Af Amer) Random Glucose Hemoglobin A1c Lactic Acid Calcium Total Bilirubin AST ALT Alkaline Phosphatase Total Protein Albumin Globulin Albumin/Globulin Ratio Fluid Type Fluid Crystals Synovial WBC Synovial RBC Synovial Neutrophils Synovial Lymphocytes Synov Monos/Macrophage Synovial Fluid Comment Urine Opiates Screen Positive H Urine Methadone Screen Negative Ur Barbiturates Screen Negative Ur Phencyclidine Scrn Negative Ur Amphetamines Screen Negative U Benzodiazepines Scrn Positive U Oth Cocaine Metabols Negative U Cannabinoids Screen Negative Alcohol, Quantitative Assessment & Plan (1) Contusion of right knee Assessment and Plan: Patient is a 57 y/o male with right knee contusion in the setting of knee osteoarthritis -synovial fluid analysis reveals acute inflammatory process due to trauma, infection not likely. Recommend d/c antibiotics -recommend conservative management with ice, elevation, NSAID's and PT -PT/OT WBAT with walker -keep knee in extension while in bed to prevent stiffness -knee neoprene sleeve for compression -B/l knee xrays for further evaluation -above d/w Dr. 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 : [id number] Patient Name / ID : ROBB SILVERMAN / [id number] Exam Date : 01/22/2018 00:10:48 ( Approved ) Study Comment : Sex / Age : M / 57Y Creator : YAMILA HAYES Dictator : Farm Laborer : It Help Desk Associate : YAMILA HAYES Approver2 : Report Date : 01/22/2018 01:59:00 My Comment : [facility] Division of Radiology [address] [place] [address] Tel. no. Patient Name: HERRERA ZAMUDIO Pt. Address: [address] [place] [address] Rec #: [id number] [place] [address]: Derrick Pérez DO Pt Order Location: [facility] : 1960 Male Age: 57 Order #: [id number] Reason for exam: bloody knee tap CT Scan CT KNEE W/O CONTRAST BILATERAL Exam Date: 01/21/18 This imaging exam was performed at [facility] EXAM: CT Right Lower Extremity Without Intravenous Contrast, Knee CLINICAL HISTORY: 57 years old, male; Pain; Knee; Bilatera; Prior surgery; Additional info: Bloody knee tap TECHNIQUE: Axial computed tomography images of the right knee without intravenous contrast. All CT scans at this facility use one or more dose reduction techniques, viz.: automated exposure control; ma/kV adjustment per patient size (including targeted exams where dose is matched to indication; i.e. head); or iterative reconstruction technique. Coronal and sagittal reformatted images were created and reviewed. COMPARISON: No relevant prior studies available. FINDINGS: Bones/joints: Small right joint effusion. No acute fracture. No dislocation. Soft tissues: Diffuse soft tissue edema with stranding of the subcutaneous fat. No focal fluid collection or abscess. No soft tissue gas. The vasculature demonstrates diffuse severe atherosclerotic calcification. IMPRESSION: Diffuse soft tissue edema. Small right joint effusion. EXAM: CT Left Lower Extremity Without Intravenous Contrast, Knee CLINICAL HISTORY: 57 years old, male; Pain; Knee; Bilatera; Prior surgery; Additional info: Bloody knee tap TECHNIQUE: Axial computed tomography images of the left knee without intravenous contrast. All CT scans at this facility use one or more dose reduction techniques, viz.: automated exposure control; ma/kV adjustment per patient size (including targeted exams where dose is matched to indication; i.e. head); or iterative reconstruction technique. Coronal and sagittal reformatted images were created and reviewed. COMPARISON: No relevant prior studies available. FINDINGS: Bones/joints: Unremarkable. No acute fracture. No dislocation. Soft tissues: Diffuse soft tissue edema with stranding of the subcutaneous fat. No focal fluid collection or abscess. No soft tissue gas. The vasculature demonstrates diffuse severe atherosclerotic calcification. IMPRESSION: Diffuse soft tissue edema. Dictated By: Yamila Hayes MD Dictated Date/Time: 01/22/18158 Signed By: Yamila Cabrera MD Date Signed: 158 Transcribed By: [facility] Transcribe Date/Time : 01/22/18158 TELMA/HERLINDA
[2018-01-22] MEDS: Lidocaine 5% Oint(35 gm) TOP SCH (17:28)
[2018-01-22] MEDS: Saccharomyces Boulardi 250 mg Cap PO SCH (17:32)
--- NOTE | 2018-01-22 17:53 | CP.PCM.CON ---
History of Present Illness - History of Present Illness History of Present Illness: reason for consultation: COPD 57 y/o male with PMH of COPD, HTN and bladder CA who was admitted due to trauma to head and knee after a fall at home. He states that he normally walks with the use of a walker and attempted to enter his bathroom, lost his balance and fell directly onto his knees and struck his head on the ground. He notes that he was able to bear weight following the injury with some pain in the right knee. Denies shortness of breath, denies cough, denies fever chills Past Patient History - Infectious Disease Hx of Infectious Diseases: None - Past Medical History & Family History Past Medical History?: Yes Past Family History: Reviewed and not pertinent - Past Social History Smoking Status: Former Smoker Alcohol: None Drugs: Denies - CARDIAC Hx Congestive Heart Failure: Yes Hx Hypertension: Yes - PULMONARY Hx Chronic Obstructive Pulmonary Disease (COPD): Yes - NEUROLOGICAL Hx Neurological Disorder: No - HEENT Hx HEENT Problems: Yes - RENAL Hx Chronic Kidney Disease: Yes - ENDOCRINE/METABOLIC Hx Endocrine Disorders: Yes Hx Diabetes Mellitus Type 2: Yes - HEMATOLOGICAL/ONCOLOGICAL Hx Blood Disorders: Yes Hx Cancer: Yes (BLADDER) - INTEGUMENTARY Hx Dermatological Problems: Yes (DISCOLORED LOWER EXTREMITIES ) - MUSCULOSKELETAL/RHEUMATOLOGICAL Hx Arthritis: Yes (L SHOULDER; L KNEE; B/L HIP) - GASTROINTESTINAL Hx Gastritis: Yes (FROM MEDS) - GENITOURINARY/GYNECOLOGICAL Hx Genitourinary Disorders: Yes Hx Bladder Cancer: Yes Hx Hematuria: Yes Other/Comment: BLADDER CANCER - PSYCHIATRIC Hx Substance Use: No - SURGICAL HISTORY Hx Surgeries: Yes Hx Open Reduction Internal Fixation: Yes (LEFT SHOULDER LEFT ELBOW REMOVAL HARDWARE) Hx Orthopedic Surgery: Yes (LEFT KNEE) Other/Comment: TURP; HX: CYSTO WITH BLADDER BX. AND FULG. - ANESTHESIA Hx Anesthesia Reactions: (DIFFICULTY TO AROUSE BUT WAS DISCHARGED) Meds Home Medications: Home Medication List Medication Instructions Recorded Confirmed Type Nitrofurantoin Macrocrystal 50 mg PO BID #14 capsule 01/21/18 Rx [Nitrofurantoin] Allergies/Adverse Reactions: Allergies Allergy/AdvReac Type Severity Reaction Status Date / Time cefuroxime Allergy RASH Verified 01/21/18 13:43 cephalexin Allergy RASH Verified 01/21/18 13:43 clarithromycin Allergy RASH Verified 01/21/18 13:43 levofloxacin Allergy RASH Verified 01/21/18 13:43 moxifloxacin Allergy RASH Verified 01/21/18 13:43 - Medications Medications: Current Medications Albuterol/Ipratropium (Duoneb 3 Mg/0.5 Mg (3 Ml) Ud) 3 ml INH RQ6 PRN PRN Reason: Shortness of Breath Last Admin: 01/22/18 01:13 Dose: 3 ml Allopurinol (Zyloprim) 300 mg PO DAILY [facility] Last Admin: 01/22/18 10:49 Dose: 300 mg Alprazolam (Xanax) 1 mg PO BID [facility] Last Admin: 01/22/18 17:34 Dose: 1 mg Dextrose (Dextrose 50% Inj) 0 ml IV STAT PRN; Protocol PRN Reason: Hypoglycemia Protocol Dextrose (Glutose 15) 0 gm PO ONCE PRN; Protocol PRN Reason: Hypoglycemia Protocol Docusate Sodium (Colace) 100 mg PO TID [facility] Last Admin: 01/22/18 17:33 Dose: 100 mg Ergocalciferol (Drisdol 50,000 Intl Units Cap) 1 cap PO QWK [facility] Famotidine (Pepcid) 20 mg PO BID [facility] Last Admin: 01/22/18 17:32 Dose: 20 mg Ferrous Sulfate (Feosol) 325 mg PO DAILY [facility] Furosemide (Lasix) 40 mg PO DAILY [facility] Glucagon (Glucagen Diagnostic Kit) 0 mg IM STAT PRN; Protocol PRN Reason: Hypoglycemia Protocol Dextrose (Dextrose 5% In Water 1000 Ml) 1,000 mls @ 0 mls/hr IV .Q0M PRN; Protocol; Per Protocol PRN Reason: Hypoglycemia Protocol Vancomycin HCl 1 gm/ Sodium (Chloride) 200 mls @ 133.333 mls/hr IVPB Q24H [facility] PRN Reason: Protocol Last Admin: 01/22/18 01:07 Dose: 133.333 mls/hr Insulin Human Regular (Novolin R) 0 unit SC ACHS [facility] PRN Reason: Protocol Last Admin: 01/22/18 17:10 Dose: Not Given Lactic Acid (Lac-Hydrin 12% Lotion (225 G)) 0 gm EXT BID [facility] Lidocaine (Lidocaine 5%) 0 gm TOP BID [facility] Last Admin: 01/22/18 17:28 Dose: 1 applic Losartan Potassium (Cozaar) 100 mg PO DAILY [facility] Montelukast Sodium (Singulair) 10 mg PO HS [facility] Oxycodone HCl (Oxycontin Extended Release Tab) 20 mg PO Q12 [facility] Oxycodone/Acetaminophen (Percocet 5/325 Mg Tab) 1 tab PO Q4H PRN PRN Reason: Pain, severe (8-10) Stop: 01/24/18 23:00 Last Admin: 01/22/18 17:41 Dose: 1 tab Prednisone (Prednisone Tab) 5 mg PO DAILY [facility] Saccharomyces Boulardii (Florastor) 250 mg PO BID [facility] Last Admin: 01/22/18 17:32 Dose: 250 mg Fluticasone/Salmeterol (Advair Diskus 250/50) 1 puff INH RQ12 [facility] Tamsulosin HCl (Flomax) 0.4 mg PO DAILY [facility] Physical Exam - Head Exam Head Exam: ATRAUMATIC, NORMOCEPHALIC - ENT Exam ENT Exam: Mucous Membranes Moist - Respiratory Exam Respiratory Exam: Clear to Auscultation Bilateral - Cardiovascular Exam Cardiovascular Exam: REGULAR RHYTHM Results - Vital Signs Recent Vital Signs: Last Vital Signs Temp 99.1 F 01/22/18 15:00 Pulse 78 01/22/18 15:00 Resp 20 01/22/18 15:00 BP 160/78 H 01/22/18 17:26 Pulse Ox 96 01/22/18 15:00 - Labs Result Diagrams: 01/22/18 08:45 01/22/18 08:45 Labs: Laboratory Results - last 24 hr 01/21/18 01/21/18 01/21/18 21:39 23:17 23:17 WBC RBC Hgb Hct MCV MCH MCHC RDW Plt Count MPV Neut % (Auto) Lymph % (Auto) [place] % (Auto) Eos % (Auto) Baso % (Auto) Neut # (Auto) Lymph # (Auto) [place] # (Auto) Eos # (Auto) Baso # (Auto) Differential Comment Sodium Potassium Chloride Carbon Dioxide Anion Gap BUN Creatinine Est GFR ( Amer) Est GFR (Non-Af Amer) POC Glucose (mg/dL) 100 Random Glucose Hemoglobin A1c Lactic Acid Calcium Total Bilirubin AST ALT Alkaline Phosphatase Total Protein Albumin Globulin Albumin/Globulin Ratio Fluid Type Synovial fluid Fluid Crystals Negative Synovial WBC 60886.0 H Synovial RBC 2817534.0 H Synovial Neutrophils 67.0 H Synovial Lymphocytes 23.0 H Synov Monos/Macrophage 10 H Synovial Fluid Comment Urine Opiates Screen Urine Methadone Screen Ur Barbiturates Screen Ur Phencyclidine Scrn Ur Amphetamines Screen U Benzodiazepines Scrn U Oth Cocaine Metabols U Cannabinoids Screen Alcohol, Quantitative 01/22/18 01/22/18 01/22/18 04:00 07:13 08:45 WBC 7.8 RBC 2.90 L Hgb 8.9 L Hct 25.6 L MCV 88.4 MCH 30.9 MCHC 34.9 RDW 14.4 Plt Count 112 L D MPV 8.3 Neut % (Auto) 72.4 Lymph % (Auto) 18.9 L [place] % (Auto) 6.6 Eos % (Auto) 1.5 Baso % (Auto) 0.6 Neut # (Auto) 5.6 Lymph # (Auto) 1.5 [place] # (Auto) 0.5 Eos # (Auto) 0.1 Baso # (Auto) 0.0 Differential Comment Sodium Potassium Chloride Carbon Dioxide Anion Gap BUN Creatinine Est GFR ( Amer) Est GFR (Non-Af Amer) POC Glucose (mg/dL) 102 Random Glucose Hemoglobin A1c Lactic Acid 0.7 Calcium Total Bilirubin AST ALT Alkaline Phosphatase Total Protein Albumin Globulin Albumin/Globulin Ratio Fluid Type Fluid Crystals Synovial WBC Synovial RBC Synovial Neutrophils Synovial Lymphocytes Synov Monos/Macrophage Synovial Fluid Comment Urine Opiates Screen Urine Methadone Screen Ur Barbiturates Screen Ur Phencyclidine Scrn Ur Amphetamines Screen U Benzodiazepines Scrn U Oth Cocaine Metabols U Cannabinoids Screen Alcohol, Quantitative 01/22/18 01/22/18 01/22/18 08:45 08:45 09:22 WBC RBC Hgb Hct MCV MCH MCHC RDW Plt Count MPV Neut % (Auto) Lymph % (Auto) [place] % (Auto) Eos % (Auto) Baso % (Auto) Neut # (Auto) Lymph # (Auto) [place] # (Auto) Eos # (Auto) Baso # (Auto) Differential Comment Sodium 143 Potassium 3.6 Chloride 105 Carbon Dioxide 23 Anion Gap 19 BUN 16 Creatinine 0.6 L Est GFR ( Amer) > 60 Est GFR (Non-Af Amer) > 60 POC Glucose (mg/dL) Random Glucose 105 Hemoglobin A1c 5.7 Lactic Acid Calcium 9.7 Total Bilirubin 0.8 AST 63 H D ALT 30 Alkaline Phosphatase 62 Total Protein 6.6 Albumin 3.7 Globulin 2.9 Albumin/Globulin Ratio 1.3 Fluid Type Fluid Crystals Synovial WBC Synovial RBC Synovial Neutrophils Synovial Lymphocytes Synov Monos/Macrophage Synovial Fluid Comment Urine Opiates Screen Positive H Urine Methadone Screen Negative Ur Barbiturates Screen Negative Ur Phencyclidine Scrn Negative Ur Amphetamines Screen Negative U Benzodiazepines Scrn Positive U Oth Cocaine Metabols Negative U Cannabinoids Screen Negative Alcohol, Quantitative < 10 01/22/18 01/22/18 11:47 16:41 WBC RBC Hgb Hct MCV MCH MCHC RDW Plt Count MPV Neut % (Auto) Lymph % (Auto) [place] % (Auto) Eos % (Auto) Baso % (Auto) Neut # (Auto) Lymph # (Auto) [place] # (Auto) Eos # (Auto) Baso # (Auto) Differential Comment Sodium Potassium Chloride Carbon Dioxide Anion Gap BUN Creatinine Est GFR ( Amer) Est GFR (Non-Af Amer) POC Glucose (mg/dL) 108 108 Random Glucose Hemoglobin A1c Lactic Acid Calcium Total Bilirubin AST ALT Alkaline Phosphatase Total Protein Albumin Globulin Albumin/Globulin Ratio Fluid Type Fluid Crystals Synovial WBC Synovial RBC Synovial Neutrophils Synovial Lymphocytes Synov Monos/Macrophage Synovial Fluid Comment Urine Opiates Screen Urine Methadone Screen Ur Barbiturates Screen Ur Phencyclidine Scrn Ur Amphetamines Screen U Benzodiazepines Scrn U Oth Cocaine Metabols U Cannabinoids Screen Alcohol, Quantitative Assessment & Plan (1) COPD (chronic obstructive pulmonary disease) Status: Acute (2) Contusion of right knee Status: Acute
--- NOTE | 2018-01-22 18:03 | RAD ---
PROCEDURE: Bilateral Knee Radiographs. HISTORY: s/p fall COMPARISON: None. FINDINGS: BONES: Right Knee: Normal. No fracture. Left Knee: Normal. No fracture. JOINTS: Right Knee: Normal. No osteoarthritis. Left knee: Normal. No osteoarthritis. SOFT TISSUES: Right Knee: Pre and suprapatellar soft tissue swelling. Left Knee: Normal. JOINT EFFUSION: Right Knee: Right pleural effusion. Left Knee: None. OTHER FINDINGS: None. IMPRESSION: No acute fracture. Right patellar and suprapatellar Soft tissue swelling and adjacent suprapatellar effusion.
--- NOTE | 2018-01-22 18:28 | CP.PCM.CON ---
History of Present Illness - History of Present Illness History of Present Illness: dictated Past Patient History - Infectious Disease Hx of Infectious Diseases: None - Past Medical History & Family History Past Medical History?: Yes Past Family History: Reviewed and not pertinent - Past Social History Smoking Status: Former Smoker Alcohol: None Drugs: Denies - CARDIAC Hx Congestive Heart Failure: Yes Hx Hypertension: Yes - PULMONARY Hx Chronic Obstructive Pulmonary Disease (COPD): Yes - NEUROLOGICAL Hx Neurological Disorder: No - HEENT Hx HEENT Problems: Yes - RENAL Hx Chronic Kidney Disease: Yes - ENDOCRINE/METABOLIC Hx Endocrine Disorders: Yes Hx Diabetes Mellitus Type 2: Yes - HEMATOLOGICAL/ONCOLOGICAL Hx Blood Disorders: Yes Hx Cancer: Yes (BLADDER) - INTEGUMENTARY Hx Dermatological Problems: Yes (DISCOLORED LOWER EXTREMITIES ) - MUSCULOSKELETAL/RHEUMATOLOGICAL Hx Arthritis: Yes (L SHOULDER; L KNEE; B/L HIP) - GASTROINTESTINAL Hx Gastritis: Yes (FROM MEDS) - GENITOURINARY/GYNECOLOGICAL Hx Genitourinary Disorders: Yes Hx Bladder Cancer: Yes Hx Hematuria: Yes Other/Comment: BLADDER CANCER - PSYCHIATRIC Hx Substance Use: No - SURGICAL HISTORY Hx Surgeries: Yes Hx Open Reduction Internal Fixation: Yes (LEFT SHOULDER LEFT ELBOW REMOVAL HARDWARE) Hx Orthopedic Surgery: Yes (LEFT KNEE) Other/Comment: TURP; HX: CYSTO WITH BLADDER BX. AND FULG. - ANESTHESIA Hx Anesthesia Reactions: (DIFFICULTY TO AROUSE BUT WAS DISCHARGED) Meds Home Medications: Home Medication List Medication Instructions Recorded Confirmed Type Nitrofurantoin Macrocrystal 50 mg PO BID #14 capsule 01/21/18 Rx [Nitrofurantoin] Allergies/Adverse Reactions: Allergies Allergy/AdvReac Type Severity Reaction Status Date / Time cefuroxime Allergy RASH Verified 01/21/18 13:43 cephalexin Allergy RASH Verified 01/21/18 13:43 clarithromycin Allergy RASH Verified 01/21/18 13:43 levofloxacin Allergy RASH Verified 01/21/18 13:43 moxifloxacin Allergy RASH Verified 01/21/18 13:43 - Medications Medications: Current Medications Albuterol/Ipratropium (Duoneb 3 Mg/0.5 Mg (3 Ml) Ud) 3 ml INH RQ6 PRN PRN Reason: Shortness of Breath Last Admin: 01/22/18 01:13 Dose: 3 ml Allopurinol (Zyloprim) 300 mg PO DAILY [facility] Last Admin: 01/22/18 10:49 Dose: 300 mg Alprazolam (Xanax) 1 mg PO BID [facility] Last Admin: 01/22/18 17:34 Dose: 1 mg Dextrose (Dextrose 50% Inj) 0 ml IV STAT PRN; Protocol PRN Reason: Hypoglycemia Protocol Dextrose (Glutose 15) 0 gm PO ONCE PRN; Protocol PRN Reason: Hypoglycemia Protocol Docusate Sodium (Colace) 100 mg PO TID [facility] Last Admin: 01/22/18 17:33 Dose: 100 mg Ergocalciferol (Drisdol 50,000 Intl Units Cap) 1 cap PO QWK [facility] Famotidine (Pepcid) 20 mg PO BID [facility] Last Admin: 01/22/18 17:32 Dose: 20 mg Ferrous Sulfate (Feosol) 325 mg PO DAILY [facility] Furosemide (Lasix) 40 mg PO DAILY [facility] Glucagon (Glucagen Diagnostic Kit) 0 mg IM STAT PRN; Protocol PRN Reason: Hypoglycemia Protocol Dextrose (Dextrose 5% In Water 1000 Ml) 1,000 mls @ 0 mls/hr IV .Q0M PRN; Protocol; Per Protocol PRN Reason: Hypoglycemia Protocol Vancomycin HCl 1 gm/ Sodium (Chloride) 200 mls @ 133.333 mls/hr IVPB Q24H [facility] PRN Reason: Protocol Last Admin: 01/22/18 01:07 Dose: 133.333 mls/hr Insulin Human Regular (Novolin R) 0 unit SC ACHS [facility] PRN Reason: Protocol Last Admin: 01/22/18 17:10 Dose: Not Given Lactic Acid (Lac-Hydrin 12% Lotion (225 G)) 0 gm EXT BID [facility] Lidocaine (Lidocaine 5%) 0 gm TOP BID [facility] Last Admin: 01/22/18 17:28 Dose: 1 applic Losartan Potassium (Cozaar) 100 mg PO DAILY [facility] Montelukast Sodium (Singulair) 10 mg PO HS [facility] Oxycodone HCl (Oxycontin Extended Release Tab) 20 mg PO Q12 [facility] Oxycodone/Acetaminophen (Percocet 5/325 Mg Tab) 1 tab PO Q4H PRN PRN Reason: Pain, severe (8-10) Stop: 01/24/18 23:00 Last Admin: 01/22/18 17:41 Dose: 1 tab Prednisone (Prednisone Tab) 5 mg PO DAILY [facility] Saccharomyces Boulardii (Florastor) 250 mg PO BID [facility] Last Admin: 01/22/18 17:32 Dose: 250 mg Fluticasone/Salmeterol (Advair Diskus 250/50) 1 puff INH RQ12 [facility] Tamsulosin HCl (Flomax) 0.4 mg PO DAILY [facility] Results - Vital Signs Recent Vital Signs: Last Vital Signs Temp 99.1 F 01/22/18 15:00 Pulse 78 01/22/18 15:00 Resp 20 01/22/18 15:00 BP 160/78 H 01/22/18 17:26 Pulse Ox 96 01/22/18 15:00 - Labs Result Diagrams: 01/22/18 08:45 01/22/18 08:45 Labs: Laboratory Results - last 24 hr 01/21/18 01/21/18 01/21/18 21:39 23:17 23:17 WBC RBC Hgb Hct MCV MCH MCHC RDW Plt Count MPV Neut % (Auto) Lymph % (Auto) [place] % (Auto) Eos % (Auto) Baso % (Auto) Neut # (Auto) Lymph # (Auto) [place] # (Auto) Eos # (Auto) Baso # (Auto) Differential Comment Sodium Potassium Chloride Carbon Dioxide Anion Gap BUN Creatinine Est GFR ( Amer) Est GFR (Non-Af Amer) POC Glucose (mg/dL) 100 Random Glucose Hemoglobin A1c Lactic Acid Calcium Total Bilirubin AST ALT Alkaline Phosphatase Total Protein Albumin Globulin Albumin/Globulin Ratio Fluid Type Synovial fluid Fluid Crystals Negative Synovial WBC 12148.0 H Synovial RBC 6654427.0 H Synovial Neutrophils 67.0 H Synovial Lymphocytes 23.0 H Synov Monos/Macrophage 10 H Synovial Fluid Comment Urine Opiates Screen Urine Methadone Screen Ur Barbiturates Screen Ur Phencyclidine Scrn Ur Amphetamines Screen U Benzodiazepines Scrn U Oth Cocaine Metabols U Cannabinoids Screen Alcohol, Quantitative 01/22/18 01/22/18 01/22/18 04:00 07:13 08:45 WBC 7.8 RBC 2.90 L Hgb 8.9 L Hct 25.6 L MCV 88.4 MCH 30.9 MCHC 34.9 RDW 14.4 Plt Count 112 L D MPV 8.3 Neut % (Auto) 72.4 Lymph % (Auto) 18.9 L [place] % (Auto) 6.6 Eos % (Auto) 1.5 Baso % (Auto) 0.6 Neut # (Auto) 5.6 Lymph # (Auto) 1.5 [place] # (Auto) 0.5 Eos # (Auto) 0.1 Baso # (Auto) 0.0 Differential Comment Sodium Potassium Chloride Carbon Dioxide Anion Gap BUN Creatinine Est GFR ( Amer) Est GFR (Non-Af Amer) POC Glucose (mg/dL) 102 Random Glucose Hemoglobin A1c Lactic Acid 0.7 Calcium Total Bilirubin AST ALT Alkaline Phosphatase Total Protein Albumin Globulin Albumin/Globulin Ratio Fluid Type Fluid Crystals Synovial WBC Synovial RBC Synovial Neutrophils Synovial Lymphocytes Synov Monos/Macrophage Synovial Fluid Comment Urine Opiates Screen Urine Methadone Screen Ur Barbiturates Screen Ur Phencyclidine Scrn Ur Amphetamines Screen U Benzodiazepines Scrn U Oth Cocaine Metabols U Cannabinoids Screen Alcohol, Quantitative 01/22/18 01/22/18 01/22/18 08:45 08:45 09:22 WBC RBC Hgb Hct MCV MCH MCHC RDW Plt Count MPV Neut % (Auto) Lymph % (Auto) [place] % (Auto) Eos % (Auto) Baso % (Auto) Neut # (Auto) Lymph # (Auto) [place] # (Auto) Eos # (Auto) Baso # (Auto) Differential Comment Sodium 143 Potassium 3.6 Chloride 105 Carbon Dioxide 23 Anion Gap 19 BUN 16 Creatinine 0.6 L Est GFR ( Amer) > 60 Est GFR (Non-Af Amer) > 60 POC Glucose (mg/dL) Random Glucose 105 Hemoglobin A1c 5.7 Lactic Acid Calcium 9.7 Total Bilirubin 0.8 AST 63 H D ALT 30 Alkaline Phosphatase 62 Total Protein 6.6 Albumin 3.7 Globulin 2.9 Albumin/Globulin Ratio 1.3 Fluid Type Fluid Crystals Synovial WBC Synovial RBC Synovial Neutrophils Synovial Lymphocytes Synov Monos/Macrophage Synovial Fluid Comment Urine Opiates Screen Positive H Urine Methadone Screen Negative Ur Barbiturates Screen Negative Ur Phencyclidine Scrn Negative Ur Amphetamines Screen Negative U Benzodiazepines Scrn Positive U Oth Cocaine Metabols Negative U Cannabinoids Screen Negative Alcohol, Quantitative < 10 01/22/18 01/22/18 11:47 16:41 WBC RBC Hgb Hct MCV MCH MCHC RDW Plt Count MPV Neut % (Auto) Lymph % (Auto) [place] % (Auto) Eos % (Auto) Baso % (Auto) Neut # (Auto) Lymph # (Auto) [place] # (Auto) Eos # (Auto) Baso # (Auto) Differential Comment Sodium Potassium Chloride Carbon Dioxide Anion Gap BUN Creatinine Est GFR ( Amer) Est GFR (Non-Af Amer) POC Glucose (mg/dL) 108 108 Random Glucose Hemoglobin A1c Lactic Acid Calcium Total Bilirubin AST ALT Alkaline Phosphatase Total Protein Albumin Globulin Albumin/Globulin Ratio Fluid Type Fluid Crystals Synovial WBC Synovial RBC Synovial Neutrophils Synovial Lymphocytes Synov Monos/Macrophage Synovial Fluid Comment Urine Opiates Screen Urine Methadone Screen Ur Barbiturates Screen Ur Phencyclidine Scrn Ur Amphetamines Screen U Benzodiazepines Scrn U Oth Cocaine Metabols U Cannabinoids Screen Alcohol, Quantitative
[2018-01-22] MEDS: Ammonium Lactate 12% Lotion (225 g) EXT SCH (18:50)
[2018-01-22] MEDS ORDERED: Fluticasone-Salmeterol 250-50mcg Diskus INH SCH (20:00)
[2018-01-22] MEDS: oxyCODONE 20 mg ER Tab (oxyCONTIN) PO SCH (21:29)
[2018-01-22 23:05] LABS: INR 1.2
--- NOTE | 2018-01-23 06:28 | CON ---
DATE:01/22/2018 INFECTIOUS DISEASE CONSULT REQUESTED BY: Dr. Cooper. HISTORY OF PRESENT ILLNESS: This patient is a 57-year-old male. He has a history of COPD, hypertension, diabetes, CHF, chronic stasis of lower extremities with stasis dermatitis. He fell at home. He was brought in ambulance. He said he left his walker outside his basement. He normally uses walker all the time. He had to arrive to the bathroom and then he fell. He hit his right knee, and then he hit his head lightly on the floor. He says it was tiles on the floor. He denies any loss of consciousness. He did hit his head on the ground. He shows me abrasion on his right forehead, and he stopped bleeding. He was on the ground for half an hour, and his nephew found him and called ambulance. He generally sleeps upright as he cannot tolerate sleeping on his back. He is 5 feet 6 inches and 185 pounds. BMI is also _noted____. They tapped the knee and was looking for knee infection, and I was called in for that. He denies having any fevers at home. He was not sick. He said he accidentally fell. SOCIAL HISTORY: He quit smoking 20 years ago. He smoked for 20 years, history of alcoholism there. 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 MEDICATIONS: He uses metformin, lisinopril, Singulair, Pepcid, Xanax, Crestor, and he is on albuterol also. REVIEW OF SYSTEMS: He denied any headaches. He said they did a CAT scan and has abrasion in the right. Denies any ear, nose, throat problems. Denies any cough, cold. No chest pain. No shortness of breath. No abdominal pain. No nausea. No vomiting. He does have right knee pain. 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 His social history is significant for former smoker. History of alcohol in the past. He lives with his family. He says he has emphysema because of smoking in the past. Denied any neurological problems. He denies any sleep apnea. He has had pneumonia in the past and does have congestive heart failure, chronic renal failure. He does have a history of diabetes type 2. He has bladder cancer; he says they scrape off and on to confirm that it is stable, and he has arthritis in his left shoulder, left elbow and right shoulder. GI, he takes medicines for gastritis. , he has bladder cancer and hematuria at times for the bladder cancer. No psych history. SURGICAL HISTORY: Open reduction and internal fixation of left shoulder, left elbow removal of hardware, history of orthopedic surgery of left knee, and history of TURP and cystoscopy with bladder biopsy in the past and fulguration has been done. HOME MEDICATIONS: He was taking nitrofurantoin 50 mg b.i.d. for 14 days. ALLERGIES: HE IS ALLERGIC TO CEFUROXIME, CEPHALEXIN, CLARITHRO, LEVOTHYROXINE AND MOXIFLOXACIN. PHYSICAL EXAMINATION: VITAL SIGNS: He had fever, low-grade temp of 100.3, actually 101 last night, when he came 101 and today was 99.1. Blood pressure 161/77, respirations are 20, saturation 96%, pulse is 78. HEENT: Head is atraumatic, normocephalic. Pupils are reacting to light. GENERAL: He is unkempt. NECK: Supple. CHEST WALL: Symmetrical. LUNGS: Decreased breath sounds bilaterally, occasional rhonchi. HEART: S1 and S2, regular. No murmurs appreciated. No gallop. ABDOMEN: Soft, flabby, nontender. No guarding, no rigidity present. EXTREMITIES: Bilateral edema and stasis dermatitis bilaterally. Right knee had small dressing, and there was some mild effusion, no redness noted. Left knee is unremarkable. LABORATORY DATA: Labs are noted. Labs show white count is 7.8, hemoglobin 8.9, hematocrit is 25.6. His hemoglobin was 10.7 yesterday. Platelets were 206, now it is 112, has diminished. Chemistry shows sodium 143, potassium 3.6, chloride is 105, CO2 is 23, BUN is 16, creatinine is 0.6. They did a CT scan, I am looking for _report____. UA shows blood 2+, wbc's 7, rbc's 13, bacteria moderate. Opioids were positive in his urine, and benzodiazepines were positive. I am not sure if they did after, this is from this morning,maybe they gave in the ER. Alcohol was less than 10. The synovial fluid had wbc's 10,962 but had rbc's which are 7168247.0, neutrophils 67, lymphs 23, macrocytes are 10. IMp : Patient is s/p fall with contusion and fluid in the knee which is traumatic form contusion r/o gouty arthritis r/o septic arthritis will continue Vancomycin ivpb for now pending culture from knee tap In this case, I do not think it is anything going on in the knee. It was a traumatic tap. We will leave him on vancomycin, and he is allergic to multiple drugs and will follow CBC, follow ESR, and follow the culture report since, and fluid was already taken and to rule out gouty arthritis but most likely is secondary to the fall and related to it. He also has emphysema and bilateral stasis dermatitis and diabetes. We will follow. Tino Rodriguez MD MTDAngel
[2018-01-23] MEDS: Albuterol-Ipratrop 3 mg / 0.5 (3 ml) UD INH PRN (07:23)
[2018-01-23 08:19] LABS: BASO % 0.6 % (0.0-2.0); EOS # 0.1 K/uL (0.0-0.7); EOS % 1.6 % (0.0-4.0); HEMOGLOBIN 9.5 g/dL (12.0-18.0); LYMPH # 1.7 K/uL (1.0-4.3); LYMPH % 24.5 % (20.0-40.0); MEAN CELL VOLUME 86.9 fL (80.0-94.0); MEAN CORPUSCULAR HEMOGLOBIN 30.4 pg (27.0-31.0); MEAN CORPUSCULAR HGB CONC 34.9 g/dL (33.0-37.0); MEAN PLATELET VOLUME 7.5 fL (7.2-11.7); MONO # 0.6 K/uL (0.0-0.8); NEUT # 4.6 K/uL (1.8-7.0); NEUT % 65.3 % (50.0-75.0); RBC 3.12 Mil/uL (4.40-5.90); RED CELL DISTRIBUTION WIDTH 14.5 % (11.5-14.5); WHITE BLOOD COUNT 7.1 K/uL (4.8-10.8)
[2018-01-23 08:41] LABS: ALB/GLOB RATIO 1.2 (1.0-2.1); ALBUMIN 3.6 g/dL (3.5-5.0); ALT/SGPT 27 U/L (21-72); AST/SGOT 49 U/L (17-59); BLOOD UREA NITROGEN 13 mg/dL (9-20); CALCIUM 9.5 mg/dl (8.6-10.4); GFR AFRICAN-AMERICAN > 60; GFR NON-AFRICAN AMERICAN > 60
[2018-01-23] MEDS: (Novolin R) Insulin Human Regular 100 units/ml vial SC SCH ×4 (09:12→22:06)
--- NOTE | 2018-01-23 09:50 | CP.PCM.CON ---
History of Present Illness - History of Present Illness History of Present Illness: patient seen/examined. full consult to follow. history of HTN, COPD s/p fall. has noted lower extremity edema, dyspnea on exertion schedule echocardiogram Past Patient History - Infectious Disease Hx of Infectious Diseases: None - Past Medical History & Family History Past Medical History?: Yes Past Family History: Reviewed and not pertinent - Past Social History Smoking Status: Former Smoker Alcohol: None Drugs: Denies - CARDIAC Hx Congestive Heart Failure: Yes Hx Hypertension: Yes - PULMONARY Hx Chronic Obstructive Pulmonary Disease (COPD): Yes - NEUROLOGICAL Hx Neurological Disorder: No - HEENT Hx HEENT Problems: Yes - RENAL Hx Chronic Kidney Disease: Yes - ENDOCRINE/METABOLIC Hx Endocrine Disorders: Yes Hx Diabetes Mellitus Type 2: Yes - HEMATOLOGICAL/ONCOLOGICAL Hx Blood Disorders: Yes Hx Cancer: Yes (BLADDER) - INTEGUMENTARY Hx Dermatological Problems: Yes (DISCOLORED LOWER EXTREMITIES ) - MUSCULOSKELETAL/RHEUMATOLOGICAL Hx Arthritis: Yes (L SHOULDER; L KNEE; B/L HIP) - GASTROINTESTINAL Hx Gastritis: Yes (FROM MEDS) - GENITOURINARY/GYNECOLOGICAL Hx Genitourinary Disorders: Yes Hx Bladder Cancer: Yes Hx Hematuria: Yes Other/Comment: BLADDER CANCER - PSYCHIATRIC Hx Substance Use: No - SURGICAL HISTORY Hx Surgeries: Yes Hx Open Reduction Internal Fixation: Yes (LEFT SHOULDER LEFT ELBOW REMOVAL HARDWARE) Hx Orthopedic Surgery: Yes (LEFT KNEE) Other/Comment: TURP; HX: CYSTO WITH BLADDER BX. AND FULG. - ANESTHESIA Hx Anesthesia Reactions: (DIFFICULTY TO AROUSE BUT WAS DISCHARGED) Meds Home Medications: Home Medication List Medication Instructions Recorded Confirmed Type Nitrofurantoin Macrocrystal 50 mg PO BID #14 capsule 01/21/18 Rx [Nitrofurantoin] Allergies/Adverse Reactions: Allergies Allergy/AdvReac Type Severity Reaction Status Date / Time cefuroxime Allergy RASH Verified 01/21/18 13:43 cephalexin Allergy RASH Verified 01/21/18 13:43 clarithromycin Allergy RASH Verified 01/21/18 13:43 levofloxacin Allergy RASH Verified 01/21/18 13:43 moxifloxacin Allergy RASH Verified 01/21/18 13:43 - Medications Medications: Current Medications Albuterol/Ipratropium (Duoneb 3 Mg/0.5 Mg (3 Ml) Ud) 3 ml INH RQ6 PRN PRN Reason: Shortness of Breath Last Admin: 01/23/18 07:23 Dose: 3 ml Allopurinol (Zyloprim) 300 mg PO DAILY [facility] Last Admin: 01/22/18 10:49 Dose: 300 mg Alprazolam (Xanax) 1 mg PO BID [facility] Last Admin: 01/22/18 17:34 Dose: 1 mg Dextrose (Dextrose 50% Inj) 0 ml IV STAT PRN; Protocol PRN Reason: Hypoglycemia Protocol Dextrose (Glutose 15) 0 gm PO ONCE PRN; Protocol PRN Reason: Hypoglycemia Protocol Docusate Sodium (Colace) 100 mg PO TID [facility] Last Admin: 01/22/18 17:33 Dose: 100 mg Ergocalciferol (Drisdol 50,000 Intl Units Cap) 1 cap PO QWK [facility] Famotidine (Pepcid) 20 mg PO BID [facility] Last Admin: 01/22/18 17:32 Dose: 20 mg Ferrous Sulfate (Feosol) 325 mg PO DAILY [facility] Furosemide (Lasix) 40 mg PO DAILY [facility] Glucagon (Glucagen Diagnostic Kit) 0 mg IM STAT PRN; Protocol PRN Reason: Hypoglycemia Protocol Dextrose (Dextrose 5% In Water 1000 Ml) 1,000 mls @ 0 mls/hr IV .Q0M PRN; Protocol; Per Protocol PRN Reason: Hypoglycemia Protocol Vancomycin HCl 1 gm/ Sodium (Chloride) 200 mls @ 133.333 mls/hr IVPB Q24H [facility] PRN Reason: Protocol Last Admin: 01/22/18 23:12 Dose: 133.333 mls/hr Insulin Human Regular (Novolin R) 0 unit SC ACHS [facility] PRN Reason: Protocol Last Admin: 01/23/18 09:12 Dose: Not Given Lactic Acid (Lac-Hydrin 12% Lotion (225 G)) 0 gm EXT BID [facility] Last Admin: 01/22/18 18:50 Dose: Not Given Lidocaine (Lidocaine 5%) 0 gm TOP BID [facility] Last Admin: 01/22/18 17:28 Dose: 1 applic Losartan Potassium (Cozaar) 100 mg PO DAILY [facility] Last Admin: 01/23/18 07:50 Dose: 100 mg Montelukast Sodium (Singulair) 10 mg PO HS [facility] Last Admin: 01/22/18 21:28 Dose: 10 mg Oxycodone HCl (Oxycontin Extended Release Tab) 20 mg PO Q12 [facility] Last Admin: 01/22/18 21:29 Dose: 20 mg Oxycodone/Acetaminophen (Percocet 5/325 Mg Tab) 1 tab PO Q4H PRN PRN Reason: Pain, severe (8-10) Stop: 01/24/18 23:00 Last Admin: 01/22/18 17:41 Dose: 1 tab Prednisone (Prednisone Tab) 5 mg PO DAILY [facility] Saccharomyces Boulardii (Florastor) 250 mg PO BID [facility] Last Admin: 01/22/18 17:32 Dose: 250 mg Fluticasone/Salmeterol (Advair Diskus 250/50) 1 puff INH RQ12 [facility] Tamsulosin HCl (Flomax) 0.4 mg PO DAILY [facility] Results - Vital Signs Recent Vital Signs: Last Vital Signs Temp 99.5 F 01/23/18 08:35 Pulse 101 H 01/23/18 09:12 Resp 18 01/23/18 09:12 BP 160/73 H 01/23/18 09:12 Pulse Ox 98 01/23/18 09:12 - Labs Result Diagrams: 01/23/18 08:09 01/23/18 08:09 Labs: Laboratory Results - last 24 hr 01/21/18 01/21/18 01/22/18 21:39 23:17 07:13 WBC RBC Hgb Hct MCV MCH MCHC RDW Plt Count MPV Neut % (Auto) Lymph % (Auto) [place] % (Auto) Eos % (Auto) Baso % (Auto) Neut # (Auto) Lymph # (Auto) [place] # (Auto) Eos # (Auto) Baso # (Auto) PT INR APTT Sodium Potassium Chloride Carbon Dioxide Anion Gap BUN Creatinine Est GFR ( Amer) Est GFR (Non-Af Amer) POC Glucose (mg/dL) 100 102 Random Glucose Calcium Phosphorus Magnesium Total Bilirubin AST ALT Alkaline Phosphatase Total Protein Albumin Globulin Albumin/Globulin Ratio Fluid Crystals Negative Urine Opiates Screen Urine Methadone Screen Ur Barbiturates Screen Ur Phencyclidine Scrn Ur Amphetamines Screen U Benzodiazepines Scrn U Oth Cocaine Metabols U Cannabinoids Screen 01/22/18 01/22/18 01/22/18 09:22 11:47 16:41 WBC RBC Hgb Hct MCV MCH MCHC RDW Plt Count MPV Neut % (Auto) Lymph % (Auto) [place] % (Auto) Eos % (Auto) Baso % (Auto) Neut # (Auto) Lymph # (Auto) [place] # (Auto) Eos # (Auto) Baso # (Auto) PT INR APTT Sodium Potassium Chloride Carbon Dioxide Anion Gap BUN Creatinine Est GFR ( Amer) Est GFR (Non-Af Amer) POC Glucose (mg/dL) 108 108 Random Glucose Calcium Phosphorus Magnesium Total Bilirubin AST ALT Alkaline Phosphatase Total Protein Albumin Globulin Albumin/Globulin Ratio Fluid Crystals Urine Opiates Screen Positive H Urine Methadone Screen Negative Ur Barbiturates Screen Negative Ur Phencyclidine Scrn Negative Ur Amphetamines Screen Negative U Benzodiazepines Scrn Positive U Oth Cocaine Metabols Negative U Cannabinoids Screen Negative 01/22/18 01/22/18 01/23/18 21:20 22:46 06:22 WBC RBC Hgb Hct MCV MCH MCHC RDW Plt Count MPV Neut % (Auto) Lymph % (Auto) [place] % (Auto) Eos % (Auto) Baso % (Auto) Neut # (Auto) Lymph # (Auto) [place] # (Auto) Eos # (Auto) Baso # (Auto) PT 13.0 H INR 1.2 APTT 29 Sodium Potassium Chloride Carbon Dioxide Anion Gap BUN Creatinine Est GFR ( Amer) Est GFR (Non-Af Amer) POC Glucose (mg/dL) 130 H 107 Random Glucose Calcium Phosphorus Magnesium Total Bilirubin AST ALT Alkaline Phosphatase Total Protein Albumin Globulin Albumin/Globulin Ratio Fluid Crystals Urine Opiates Screen Urine Methadone Screen Ur Barbiturates Screen Ur Phencyclidine Scrn Ur Amphetamines Screen U Benzodiazepines Scrn U Oth Cocaine Metabols U Cannabinoids Screen 01/23/18 01/23/18 08:09 08:09 WBC 7.1 RBC 3.12 L Hgb 9.5 L Hct 27.1 L MCV 86.9 MCH 30.4 MCHC 34.9 RDW 14.5 Plt Count 153 MPV 7.5 Neut % (Auto) 65.3 Lymph % (Auto) 24.5 [place] % (Auto) 8.0 Eos % (Auto) 1.6 Baso % (Auto) 0.6 Neut # (Auto) 4.6 Lymph # (Auto) 1.7 [place] # (Auto) 0.6 Eos # (Auto) 0.1 Baso # (Auto) 0.0 PT INR APTT Sodium 142 Potassium 3.1 L Chloride 100 Carbon Dioxide 31 H Anion Gap 15 BUN 13 Creatinine 0.6 L Est GFR ( Amer) > 60 Est GFR (Non-Af Amer) > 60 POC Glucose (mg/dL) Random Glucose 124 H Calcium 9.5 Phosphorus 3.1 Magnesium 1.4 L Total Bilirubin 0.7 AST 49 ALT 27 Alkaline Phosphatase 63 Total Protein 6.6 Albumin 3.6 Globulin 2.9 Albumin/Globulin Ratio 1.2 Fluid Crystals Urine Opiates Screen Urine Methadone Screen Ur Barbiturates Screen Ur Phencyclidine Scrn Ur Amphetamines Screen U Benzodiazepines Scrn U Oth Cocaine Metabols U Cannabinoids Screen
--- NOTE | 2018-01-23 09:50 | CP.PCM.CON ---
Past Patient History - Infectious Disease Hx of Infectious Diseases: None - Past Medical History & Family History Past Medical History?: Yes Past Family History: Reviewed and not pertinent - Past Social History Smoking Status: Former Smoker Alcohol: None Drugs: Denies - CARDIAC Hx Congestive Heart Failure: Yes Hx Hypertension: Yes - PULMONARY Hx Chronic Obstructive Pulmonary Disease (COPD): Yes - NEUROLOGICAL Hx Neurological Disorder: No - HEENT Hx HEENT Problems: Yes - RENAL Hx Chronic Kidney Disease: Yes - ENDOCRINE/METABOLIC Hx Endocrine Disorders: Yes Hx Diabetes Mellitus Type 2: Yes - HEMATOLOGICAL/ONCOLOGICAL Hx Blood Disorders: Yes Hx Cancer: Yes (BLADDER) - INTEGUMENTARY Hx Dermatological Problems: Yes (DISCOLORED LOWER EXTREMITIES ) - MUSCULOSKELETAL/RHEUMATOLOGICAL Hx Arthritis: Yes (L SHOULDER; L KNEE; B/L HIP) - GASTROINTESTINAL Hx Gastritis: Yes (FROM MEDS) - GENITOURINARY/GYNECOLOGICAL Hx Genitourinary Disorders: Yes Hx Bladder Cancer: Yes Hx Hematuria: Yes Other/Comment: BLADDER CANCER - PSYCHIATRIC Hx Substance Use: No - SURGICAL HISTORY Hx Surgeries: Yes Hx Open Reduction Internal Fixation: Yes (LEFT SHOULDER LEFT ELBOW REMOVAL HARDWARE) Hx Orthopedic Surgery: Yes (LEFT KNEE) Other/Comment: TURP; HX: CYSTO WITH BLADDER BX. AND FULG. - ANESTHESIA Hx Anesthesia Reactions: (DIFFICULTY TO AROUSE BUT WAS DISCHARGED) Meds Home Medications: Home Medication List Medication Instructions Recorded Confirmed Type Nitrofurantoin Macrocrystal 50 mg PO BID #14 capsule 01/21/18 Rx [Nitrofurantoin] Allergies/Adverse Reactions: Allergies Allergy/AdvReac Type Severity Reaction Status Date / Time cefuroxime Allergy RASH Verified 01/21/18 13:43 cephalexin Allergy RASH Verified 01/21/18 13:43 clarithromycin Allergy RASH Verified 01/21/18 13:43 levofloxacin Allergy RASH Verified 01/21/18 13:43 moxifloxacin Allergy RASH Verified 01/21/18 13:43 - Medications Medications: Current Medications Albuterol/Ipratropium (Duoneb 3 Mg/0.5 Mg (3 Ml) Ud) 3 ml INH RQ6 PRN PRN Reason: Shortness of Breath Last Admin: 01/23/18 07:23 Dose: 3 ml Allopurinol (Zyloprim) 300 mg PO DAILY [facility] Last Admin: 01/22/18 10:49 Dose: 300 mg Alprazolam (Xanax) 1 mg PO BID [facility] Last Admin: 01/22/18 17:34 Dose: 1 mg Dextrose (Dextrose 50% Inj) 0 ml IV STAT PRN; Protocol PRN Reason: Hypoglycemia Protocol Dextrose (Glutose 15) 0 gm PO ONCE PRN; Protocol PRN Reason: Hypoglycemia Protocol Docusate Sodium (Colace) 100 mg PO TID [facility] Last Admin: 01/22/18 17:33 Dose: 100 mg Ergocalciferol (Drisdol 50,000 Intl Units Cap) 1 cap PO QWK [facility] Famotidine (Pepcid) 20 mg PO BID [facility] Last Admin: 01/22/18 17:32 Dose: 20 mg Ferrous Sulfate (Feosol) 325 mg PO DAILY [facility] Furosemide (Lasix) 40 mg PO DAILY [facility] Glucagon (Glucagen Diagnostic Kit) 0 mg IM STAT PRN; Protocol PRN Reason: Hypoglycemia Protocol Dextrose (Dextrose 5% In Water 1000 Ml) 1,000 mls @ 0 mls/hr IV .Q0M PRN; Protocol; Per Protocol PRN Reason: Hypoglycemia Protocol Vancomycin HCl 1 gm/ Sodium (Chloride) 200 mls @ 133.333 mls/hr IVPB Q24H [facility] PRN Reason: Protocol Last Admin: 01/22/18 23:12 Dose: 133.333 mls/hr Insulin Human Regular (Novolin R) 0 unit SC ACHS [facility] PRN Reason: Protocol Last Admin: 01/23/18 09:12 Dose: Not Given Lactic Acid (Lac-Hydrin 12% Lotion (225 G)) 0 gm EXT BID [facility] Last Admin: 01/22/18 18:50 Dose: Not Given Lidocaine (Lidocaine 5%) 0 gm TOP BID [facility] Last Admin: 01/22/18 17:28 Dose: 1 applic Losartan Potassium (Cozaar) 100 mg PO DAILY [facility] Last Admin: 01/23/18 07:50 Dose: 100 mg Montelukast Sodium (Singulair) 10 mg PO HS [facility] Last Admin: 01/22/18 21:28 Dose: 10 mg Oxycodone HCl (Oxycontin Extended Release Tab) 20 mg PO Q12 [facility] Last Admin: 01/22/18 21:29 Dose: 20 mg Oxycodone/Acetaminophen (Percocet 5/325 Mg Tab) 1 tab PO Q4H PRN PRN Reason: Pain, severe (8-10) Stop: 01/24/18 23:00 Last Admin: 01/22/18 17:41 Dose: 1 tab Prednisone (Prednisone Tab) 5 mg PO DAILY [facility] Saccharomyces Boulardii (Florastor) 250 mg PO BID [facility] Last Admin: 01/22/18 17:32 Dose: 250 mg Fluticasone/Salmeterol (Advair Diskus 250/50) 1 puff INH RQ12 [facility] Tamsulosin HCl (Flomax) 0.4 mg PO DAILY [facility] Results - Vital Signs Recent Vital Signs: Last Vital Signs Temp 99.5 F 01/23/18 08:35 Pulse 101 H 01/23/18 09:12 Resp 18 01/23/18 09:12 BP 160/73 H 01/23/18 09:12 Pulse Ox 98 01/23/18 09:12 - Labs Result Diagrams: 01/23/18 08:09 01/23/18 08:09 Labs: Laboratory Results - last 24 hr 01/21/18 01/21/18 01/22/18 21:39 23:17 07:13 WBC RBC Hgb Hct MCV MCH MCHC RDW Plt Count MPV Neut % (Auto) Lymph % (Auto) [place] % (Auto) Eos % (Auto) Baso % (Auto) Neut # (Auto) Lymph # (Auto) [place] # (Auto) Eos # (Auto) Baso # (Auto) PT INR APTT Sodium Potassium Chloride Carbon Dioxide Anion Gap BUN Creatinine Est GFR ( Amer) Est GFR (Non-Af Amer) POC Glucose (mg/dL) 100 102 Random Glucose Calcium Phosphorus Magnesium Total Bilirubin AST ALT Alkaline Phosphatase Total Protein Albumin Globulin Albumin/Globulin Ratio Fluid Crystals Negative Urine Opiates Screen Urine Methadone Screen Ur Barbiturates Screen Ur Phencyclidine Scrn Ur Amphetamines Screen U Benzodiazepines Scrn U Oth Cocaine Metabols U Cannabinoids Screen 01/22/18 01/22/18 01/22/18 09:22 11:47 16:41 WBC RBC Hgb Hct MCV MCH MCHC RDW Plt Count MPV Neut % (Auto) Lymph % (Auto) [place] % (Auto) Eos % (Auto) Baso % (Auto) Neut # (Auto) Lymph # (Auto) [place] # (Auto) Eos # (Auto) Baso # (Auto) PT INR APTT Sodium Potassium Chloride Carbon Dioxide Anion Gap BUN Creatinine Est GFR ( Amer) Est GFR (Non-Af Amer) POC Glucose (mg/dL) 108 108 Random Glucose Calcium Phosphorus Magnesium Total Bilirubin AST ALT Alkaline Phosphatase Total Protein Albumin Globulin Albumin/Globulin Ratio Fluid Crystals Urine Opiates Screen Positive H Urine Methadone Screen Negative Ur Barbiturates Screen Negative Ur Phencyclidine Scrn Negative Ur Amphetamines Screen Negative U Benzodiazepines Scrn Positive U Oth Cocaine Metabols Negative U Cannabinoids Screen Negative 01/22/18 01/22/18 01/23/18 21:20 22:46 06:22 WBC RBC Hgb Hct MCV MCH MCHC RDW Plt Count MPV Neut % (Auto) Lymph % (Auto) [place] % (Auto) Eos % (Auto) Baso % (Auto) Neut # (Auto) Lymph # (Auto) [place] # (Auto) Eos # (Auto) Baso # (Auto) PT 13.0 H INR 1.2 APTT 29 Sodium Potassium Chloride Carbon Dioxide Anion Gap BUN Creatinine Est GFR ( Amer) Est GFR (Non-Af Amer) POC Glucose (mg/dL) 130 H 107 Random Glucose Calcium Phosphorus Magnesium Total Bilirubin AST ALT Alkaline Phosphatase Total Protein Albumin Globulin Albumin/Globulin Ratio Fluid Crystals Urine Opiates Screen Urine Methadone Screen Ur Barbiturates Screen Ur Phencyclidine Scrn Ur Amphetamines Screen U Benzodiazepines Scrn U Oth Cocaine Metabols U Cannabinoids Screen 01/23/18 01/23/18 08:09 08:09 WBC 7.1 RBC 3.12 L Hgb 9.5 L Hct 27.1 L MCV 86.9 MCH 30.4 MCHC 34.9 RDW 14.5 Plt Count 153 MPV 7.5 Neut % (Auto) 65.3 Lymph % (Auto) 24.5 [place] % (Auto) 8.0 Eos % (Auto) 1.6 Baso % (Auto) 0.6 Neut # (Auto) 4.6 Lymph # (Auto) 1.7 [place] # (Auto) 0.6 Eos # (Auto) 0.1 Baso # (Auto) 0.0 PT INR APTT Sodium 142 Potassium 3.1 L Chloride 100 Carbon Dioxide 31 H Anion Gap 15 BUN 13 Creatinine 0.6 L Est GFR ( Amer) > 60 Est GFR (Non-Af Amer) > 60 POC Glucose (mg/dL) Random Glucose 124 H Calcium 9.5 Phosphorus 3.1 Magnesium 1.4 L Total Bilirubin 0.7 AST 49 ALT 27 Alkaline Phosphatase 63 Total Protein 6.6 Albumin 3.6 Globulin 2.9 Albumin/Globulin Ratio 1.2 Fluid Crystals Urine Opiates Screen Urine Methadone Screen Ur Barbiturates Screen Ur Phencyclidine Scrn Ur Amphetamines Screen U Benzodiazepines Scrn U Oth Cocaine Metabols U Cannabinoids Screen
[2018-01-23] MEDS: Ammonium Lactate 12% Lotion (225 g) EXT SCH ×2 (10:00→18:29)
[2018-01-23] MEDS ORDERED: Potassium Chloride 20 mEq ER Tab PO ONE (10:21)
--- NOTE | 2018-01-23 10:22 | CP.PCM.PN ---
<Tamiko Thurman TeresoMandy - Last Filed: 01/23/18 15:04> Subjective - Date & Time of Evaluation Date of Evaluation: 01/23/18 Time of Evaluation: 07:00 - Subjective Subjective: Medicine Progress Note: Patient seen and examined at bedside in the AM. Patient continues to report right knee pain and bilateral lower extremity swelling. He states ice has been helping his knee pain. Reports shortness of breath and wheezing intermittently since yesterday; mild improvement with Duoneb treatment. Per nursing staff, BP has been elevated, 192/78 this AM at 08:35. Denies fever/chills, headaches, vision change, chest pain, cough, abdominal pain, nausea, vomiting, diarrhea, constipation, and dizziness. Objective - Vital Signs/Intake and Output Vital Signs (last 24 hours): Temp Pulse Resp BP Pulse Ox 99.5 F 101 H 18 160/73 H 98 01/23/18 08:35 01/23/18 09:12 01/23/18 09:12 01/23/18 09:12 01/23/18 09:12 Intake and Output: 01/23/18 01/23/18 06:59 18:59 Intake Total 650 Output Total 3050 Balance -2400 - Medications Medications: Current Medications Albuterol/Ipratropium (Duoneb 3 Mg/0.5 Mg (3 Ml) Ud) 3 ml INH RQ6 PRN PRN Reason: Shortness of Breath Last Admin: 01/23/18 07:23 Dose: 3 ml Allopurinol (Zyloprim) 300 mg PO DAILY [facility] Last Admin: 01/22/18 10:49 Dose: 300 mg Alprazolam (Xanax) 1 mg PO BID [facility] Last Admin: 01/22/18 17:34 Dose: 1 mg Dextrose (Dextrose 50% Inj) 0 ml IV STAT PRN; Protocol PRN Reason: Hypoglycemia Protocol Dextrose (Glutose 15) 0 gm PO ONCE PRN; Protocol PRN Reason: Hypoglycemia Protocol Docusate Sodium (Colace) 100 mg PO TID [facility] Last Admin: 01/22/18 17:33 Dose: 100 mg Ergocalciferol (Drisdol 50,000 Intl Units Cap) 1 cap PO QWK [facility] Famotidine (Pepcid) 20 mg PO BID [facility] Last Admin: 01/22/18 17:32 Dose: 20 mg Ferrous Sulfate (Feosol) 325 mg PO DAILY [facility] Furosemide (Lasix) 40 mg PO DAILY [facility] Glucagon (Glucagen Diagnostic Kit) 0 mg IM STAT PRN; Protocol PRN Reason: Hypoglycemia Protocol Dextrose (Dextrose 5% In Water 1000 Ml) 1,000 mls @ 0 mls/hr IV .Q0M PRN; Protocol; Per Protocol PRN Reason: Hypoglycemia Protocol Vancomycin HCl 1 gm/ Sodium (Chloride) 200 mls @ 133.333 mls/hr IVPB Q24H [facility] PRN Reason: Protocol Last Admin: 01/22/18 23:12 Dose: 133.333 mls/hr Insulin Human Regular (Novolin R) 0 unit SC ACHS [facility] PRN Reason: Protocol Last Admin: 01/23/18 09:12 Dose: Not Given Lactic Acid (Lac-Hydrin 12% Lotion (225 G)) 0 gm EXT BID [facility] Last Admin: 01/22/18 18:50 Dose: Not Given Lidocaine (Lidocaine 5%) 0 gm TOP BID [facility] Last Admin: 01/22/18 17:28 Dose: 1 applic Losartan Potassium (Cozaar) 100 mg PO DAILY [facility] Last Admin: 01/23/18 07:50 Dose: 100 mg Montelukast Sodium (Singulair) 10 mg PO HS [facility] Last Admin: 01/22/18 21:28 Dose: 10 mg Oxycodone HCl (Oxycontin Extended Release Tab) 20 mg PO Q12 [facility] Last Admin: 01/22/18 21:29 Dose: 20 mg Oxycodone/Acetaminophen (Percocet 5/325 Mg Tab) 1 tab PO Q4H PRN PRN Reason: Pain, severe (8-10) Stop: 01/24/18 23:00 Last Admin: 01/22/18 17:41 Dose: 1 tab Prednisone (Prednisone Tab) 5 mg PO DAILY [facility] Saccharomyces Boulardii (Florastor) 250 mg PO BID [facility] Last Admin: 01/22/18 17:32 Dose: 250 mg Fluticasone/Salmeterol (Advair Diskus 250/50) 1 puff INH RQ12 [facility] Tamsulosin HCl (Flomax) 0.4 mg PO DAILY [facility] - Labs Labs: 01/23/18 08:09 01/23/18 08:09 PT 13.0 SECONDS (9.7-12.2) H 01/22/18 22:46 INR 1.2 01/22/18 22:46 APTT 29 SECONDS (21-34) 01/22/18 22:46 - Constitutional Appears: In Acute Distress - Head Exam Head Exam: absent: NORMAL INSPECTION (healing cut on the right forehead ) - Eye Exam Eye Exam: EOMI, Normal appearance - ENT Exam ENT Exam: Mucous Membranes Moist - Respiratory Exam Respiratory Exam: Wheezes (bilateral lungs ) - Cardiovascular Exam Cardiovascular Exam: Tachycardia, RRR, +S1, +S2 - GI/Abdominal Exam GI & Abdominal Exam: Soft, Normal Bowel Sounds. absent: Tenderness - Extremities Exam Extremities Exam: Joint Swelling (right knee swelling and tenderness ), Pedal Edema (+ 1 pedal edema bilateral lower extremities ), Tenderness (right knee tenderness ) - Neurological Exam Neurological Exam: Alert, Awake, Oriented x3 - Psychiatric Exam Psychiatric exam: Normal Affect - Skin Skin Exam: Warm. absent: Normal Color (bilateral venous stasis LE) Assessment and Plan - Assessment and Plan (Free Text) Assessment: 57 year old male with past medical history of CHF, COPD, HTN, DM, bladder CA with suspected septic arthritis of right knee s/p mechanical fall 01/21/18. New onset dyspnea - Pulm consult: Dr. Shah --> help appreciated - Chest x-ray (01/23/18): No active pulmonary disease. - Initial chest x-ray (01/21/18): No active disease. No acute/significant interval changes. - Increase Duoneb frequency to Q4H - Supplemental oxygen - Solu medrol 40mg IV q12h - Continue telemetry monitoring Contusion of the Right Knee - Orthopedic surgery consulted: Dr. Vogel --> help appreciated - ID consulted: Dr. Rodriguez --> help appreciated - WBC 8.9 --> 7.8 --> 7.1 - Knee CT (01/21/18): Diffuse soft tissue edema. Small right joint effusion - knee x-ray 3 views: No acute fracture. Right patellar and suprapatellar soft tissue swelling and adjacent suprapatellar effusion. - Right knee synovial fluid aspirated on 01/21/18 on admission * Negative crystals * WBC 10,962; RBC 1,132,220; Neutrophil 67, Lymphocyte 23, Monos/macorphage 10 * f/u cell count/differential, uric acid - Lactic acid (01/22/18): 0.7 - Wound culture preliminary * gram stain shows moderate PMN WBCs, no organisms seen - blood culture: negative - Medications * Vancomycin 1gm IVPB Q24H (started 01/21/18) --> discontinued 01/23/18 s/p Mechanical Fall - Head CT without contrast (01/21/18): No evidence of acute intracranial hemorrhage mass effect or midline shift. Low-attenuation fluid along the right aspect of the interhemispheric falx with maximum thickness of 7 millimeter may represent hygroma or old subdural collection. Moderate atrophy and moderate presumed chronic microvascular white matter ischemic disease. - PT/OT evaluation for gait dysfunction Thrombocytopenia - Platelet count 206 --> 112 --> 153 - possibly secondary to right knee fluid aspiration which resulted in high RBC ( [id number]) - f/u heparin-induced platelet antibody, serotonin level - PT/PTT - Continue to monitor Bilateral lower extremity edema secondary to chronic venous insufficiency - CT Angio Chest PE protocol (01/21/18): No pulmonary embolism. No focal consolidation. Multiple chronic bilateral rib fractures. - venous duplex: negative - Wound Care --> help appreciated - Medications * Lac-Hydrin 12% Lotion apply to area BID Chronic pain syndrome - Medications verified through patient's pharmacy [facility] ([phone] ) - UDS positive for opiates and benzodiazepines - Alcohol quantitative < 10 - Medications * Xanax 1mg PO BID * Lidocaine Patch daily * Oxycontin 20mg PO Q12 * Percocet 5/325 PO Q4H PRN History of bladder CA - Stable at this time - Urine C&S ordered and pending - Urology Dr. Bellamy consult deferred at this time, patient asymptomatic -- will consult appropriately - Continue home medication * Flomax 0.4mg PO QD History of CHF - Cardiology consulted: Dr. 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 Shah (patient's public policy coordinator) --> help appreciated - Continue home medications * Duoneb 3ml INH RQ6 PRN * Advair Diskus 250/50 1 puff INH RQ12 * Singulair 10mg PO QHS * Prednisone 5mg PO QD History of gout - Continue home medication * Allopurinol 300mg PO QD Electrolyte deficiency - Potassium: 4.4 --> 3.6 --> 3.1 - Magnesium: 1.4 - Likely secondary to Lasix - K-Dur 40 mEq PO once - Magnesium sulfate 1gm IVPB once - Continue to Monitor Prophylaxis - SCDs - Consistent carbohydrate diet - Glucerna supplement as ordered - Florastor 250mg PO BID - Colace 100mg PO TID - Pepcid 20mg PO BID - heparin SC q8 - PT/OT evaluation Case discussed with Dr. Allison Thurman PGY-1 <Tabby Cooper V - Last Filed: 01/24/18 00:04> Objective - Vital Signs/Intake and Output Vital Signs (last 24 hours): Temp Pulse Resp BP Pulse Ox 97.9 F 99 H 20 174/83 H 96 01/23/18 15:27 01/23/18 17:30 01/23/18 15:27 01/23/18 15:27 01/23/18 15:27 Intake and Output: 01/23/18 01/24/18 18:59 06:59 Intake Total 100 Output Total 1200 1100 Balance -1100 -1100 - Medications Medications: Current Medications Albuterol/Ipratropium (Duoneb 3 Mg/0.5 Mg (3 Ml) Ud) 3 ml INH RQ4 [facility] Last Admin: 01/23/18 19:48 Dose: 3 ml Allopurinol (Zyloprim) 300 mg PO DAILY [facility] Last Admin: 01/23/18 11:06 Dose: 300 mg Alprazolam (Xanax) 1 mg PO BID [facility] Last Admin: 01/23/18 17:18 Dose: 1 mg Carvedilol (Coreg) 6.25 mg PO BID [facility] Dextrose (Dextrose 50% Inj) 0 ml IV STAT PRN; Protocol PRN Reason: Hypoglycemia Protocol Dextrose (Glutose 15) 0 gm PO ONCE PRN; Protocol PRN Reason: Hypoglycemia Protocol Docusate Sodium (Colace) 100 mg PO TID [facility] Last Admin: 01/23/18 17:15 Dose: 100 mg Ergocalciferol (Drisdol 50,000 Intl Units Cap) 1 cap PO QWK [facility] Famotidine (Pepcid) 20 mg PO BID [facility] Last Admin: 01/23/18 17:24 Dose: 20 mg Ferrous Sulfate (Feosol) 325 mg PO DAILY [facility] Last Admin: 01/23/18 11:04 Dose: 325 mg Furosemide (Lasix) 40 mg PO DAILY [facility] Last Admin: 01/23/18 11:06 Dose: 40 mg Glucagon (Glucagen Diagnostic Kit) 0 mg IM STAT PRN; Protocol PRN Reason: Hypoglycemia Protocol Heparin Sodium (Porcine) (Heparin) 5,000 units SC Q8 [facility] Last Admin: 01/23/18 22:14 Dose: 5,000 units Dextrose (Dextrose 5% In Water 1000 Ml) 1,000 mls @ 0 mls/hr IV .Q0M PRN; Protocol; Per Protocol PRN Reason: Hypoglycemia Protocol Insulin Human Regular (Novolin R) 0 unit SC ACHS [facility] PRN Reason: Protocol Last Admin: 01/23/18 22:06 Dose: Not Given Lactic Acid (Lac-Hydrin 12% Lotion (225 G)) 0 gm EXT BID [facility] Last Admin: 01/23/18 18:29 Dose: 1 applic Lidocaine (Lidoderm) 1 ea TD DAILY [facility] Last Admin: 01/23/18 12:28 Dose: 1 ea Losartan Potassium (Cozaar) 100 mg PO DAILY [facility] Last Admin: 01/23/18 10:55 Dose: Not Given Methylprednisolone (Solu-Medrol) 40 mg IV Q12 [facility] Last Admin: 01/23/18 22:08 Dose: 40 mg Montelukast Sodium (Singulair) 10 mg PO HS [facility] Last Admin: 01/23/18 22:07 Dose: 10 mg Oxycodone HCl (Oxycontin Extended Release Tab) 20 mg PO Q12 [facility] Last Admin: 01/23/18 22:06 Dose: 20 mg Oxycodone/Acetaminophen (Percocet 5/325 Mg Tab) 1 tab PO Q4H PRN PRN Reason: Pain, severe (8-10) Stop: 01/24/18 23:00 Last Admin: 01/23/18 17:17 Dose: 1 tab Prednisone (Prednisone Tab) 5 mg PO DAILY [facility] Last Admin: 01/23/18 11:06 Dose: 5 mg Saccharomyces Boulardii (Florastor) 250 mg PO BID [facility] Last Admin: 01/23/18 17:16 Dose: 250 mg Fluticasone/Salmeterol (Advair Diskus 250/50) 1 puff INH RQ12 [facility] Tamsulosin HCl (Flomax) 0.4 mg PO DAILY [facility] Last Admin: 01/23/18 11:05 Dose: 0.4 mg - Labs Labs: 01/23/18 08:09 01/23/18 08:09 PT 13.0 SECONDS (9.7-12.2) H 01/22/18 22:46 INR 1.2 01/22/18 22:46 APTT 29 SECONDS (21-34) 01/22/18 22:46 Attending/Attestation - Attestation I have personally seen and examined this patient.: Yes I have fully participated in the care of the patient.: Yes I have reviewed all pertinent clinical information, including history, physical exam and plan: Yes Notes (Text): This is late computer entry for 01/23/18. Patient seen, examined, and case discussed with day-time resident. Patient reports mild improvement in right knee. Patient reports pain is more in his hips. Patient reported shortness of breathe and wheezing, improved after duoneb treatment but has expiratory wheezing bilateral. Ordered for repeat chest xray which showed no changed. Patient to receive Duoneb more frequently and low dose IV steroids to see if helps to improve his breathing. Patient has uncontrolled blood pressure inspite reinstituted his pain management regimen. Will added Coreg 3.125mg PO bid; increased to Coreg 6.25mg po bid since it remains uncontrolled in the evening. ID recommends to d/c antibiotics since gram stain is negative and ortho suspecting this knee arthritis is unlikely septic arthrtitis We are awaiting read of echocardiogram. Note: aspirin contraindicated secondary to hx of subdural. Patient ruled out for DVT. Electrolytes replaced. Will need to f/u with case management in regards to discharge planning.
[2018-01-23] MEDS: oxyCODONE 20 mg ER Tab (oxyCONTIN) PO SCH ×2 (11:03→22:06)
[2018-01-23] MEDS: Saccharomyces Boulardi 250 mg Cap PO SCH ×2 (11:05→17:16)
[2018-01-23] MEDS ORDERED: Magnesium Sulfate 1 gm in D5W 1 GM/100 ML BAG IVPB ONE (11:05)
--- NOTE | 2018-01-23 12:04 | VASCLAB ---
PROCEDURE: Lower Extremity Venous Duplex Exam. HISTORY: Swelling, r/o dvt PRIORS: None. TECHNIQUE: Bilateral common femoral, femoral, popliteal and posterior tibial, peroneal and great saphenous veins were evaluated. Flow was assessed with color Doppler, compressibility, assessment of phasic flow and augmentation response. Report prepared by Jamari Flores, AMARJIT, RVT FINDINGS: RIGHT: 1. Common Femoral Vein: 1.1. Compressibility - Fully compressible: Thrombus - None : Flow - Phasic: Augmentation -Normal: Reflux - None. 2. Femoral Vein: 2.1. Compressibility - Fully compressible: Thrombus - None : Flow - Phasic: Augmentation -Normal: Reflux - None. 3. Popliteal Vein: 3.1. Compressibility - Fully compressible: Thrombus - None : Flow - Phasic: Augmentation -Normal: Reflux - None. 4. Posterior Tibial Vein: 4.1. Compressibility - Fully compressible: Thrombus - None: Flow - Phasic: Augmentation -Normal: Reflux - None. 5. Peroneal Vein: 5.1. Compressibility - Fully compressible: Thrombus - None: Flow - Phasic: Augmentation -Normal: Reflux - None. 6. Great Saphenous Vein: 6.1. Compressibility - Fully compressible: Thrombus - None: Flow - Phasic: Augmentation - Normal: Reflux - None. LEFT: 1. Common Femoral Vein: 1.1. Compressibility - Fully compressible: Thrombus - None: Flow - Phasic: Augmentation -Normal: Reflux - None. 2. Femoral Vein: 2.1. Compressibility - Fully compressible: Thrombus - None: Flow - Phasic: Augmentation -Normal: Reflux - None. 3. Popliteal Vein: 3.1. Compressibility - Fully compressible: Thrombus - None : Flow - Phasic: Augmentation -Normal: Reflux - None. 4. Posterior Tibial Vein: 4.1. Compressibility - Fully compressible: Thrombus - None: Flow - Phasic: Augmentation -Normal: Reflux - None. 5. Peroneal Vein: 5.1. Compressibility - Fully compressible: Thrombus - None: Flow - Phasic: Augmentation -Normal: Reflux - None. 6. Great Saphenous Vein: 6.1. Compressibility - Fully compressible: Thrombus - None: Flow - Phasic: Augmentation - Normal: Reflux - None. OTHER FINDINGS: Right: None significant. Left: None significant. IMPRESSION: Right: No evidence of deep or superficial vein thrombosis of the right lower extremity. Normal valve function noted of the right side. Left: No evidence of deep or superficial vein thrombosis of the left lower extremity. Normal valve function noted of the left side.
[2018-01-23] MEDS: Albuterol-Ipratrop 3 mg / 0.5 (3 ml) UD INH SCH ×3 (12:08→19:48)
[2018-01-23] MEDS: Lidocaine 5% Patch TD SCH (12:28)
[2018-01-23] MEDS: Oxycodone/Acetaminophen 5/325 mg Tab PO PRN ×2 (12:35→17:17)
--- NOTE | 2018-01-23 12:40 | RAD ---
HISTORY: wheezing COMPARISON: 01/21/2018. FINDINGS: LUNGS: The lungs are well inflated and clear. PLEURA: No significant pleural effusion identified, no pneumothorax apparent. CARDIOVASCULAR: Normal. OSSEOUS STRUCTURES: There is diffuse bone demineralization. There are old fracture deformities in the left lower lateral ribs. VISUALIZED UPPER ABDOMEN: Normal. OTHER FINDINGS: None. IMPRESSION: No active pulmonary disease.
[2018-01-23] MEDS: MethylPREDNISolone 40 mg Vial IV SCH ×2 (13:47→22:08)
[2018-01-23] MEDS: Lidocaine 5% Oint(35 gm) TOP SCH (14:13)
--- NOTE | 2018-01-23 15:28 | CP.PCM.PN ---
Subjective - Date & Time of Evaluation Date of Evaluation: 01/23/18 Time of Evaluation: 09:00 - Subjective Subjective: 57 year-old male seen and examined at bedside today and noted to be in mild distress due to pain in the right knee post joint tap. Patient resting and not in notable respiratory distress, saturating at 98% on nasal cannula. Patient denies chest pain, palpitations and shortness of breath. Assessment/Plan 1. COPD Appears clinically stable and lungs clear to auscultation in all mccall bilaterally. Bedside CXR done today, 01/23 shows no acute pulmonary disease. IV Solumedrol 40 mg q12h started. 2. Contusion of right knee Clinically stable and healing Objective - Vital Signs/Intake and Output Vital Signs (last 24 hours): Temp Pulse Resp BP Pulse Ox 99.5 F 95 H 18 158/70 H 98 01/23/18 08:35 01/23/18 12:59 01/23/18 09:12 01/23/18 11:06 01/23/18 09:12 Intake and Output: 01/23/18 01/23/18 06:59 18:59 Intake Total 650 100 Output Total 3050 1200 Balance -2400 -1100 - Medications Medications: Current Medications Albuterol/Ipratropium (Duoneb 3 Mg/0.5 Mg (3 Ml) Ud) 3 ml INH RQ4 [facility] Last Admin: 01/23/18 12:08 Dose: 3 ml Allopurinol (Zyloprim) 300 mg PO DAILY [facility] Last Admin: 01/23/18 11:06 Dose: 300 mg Alprazolam (Xanax) 1 mg PO BID [facility] Last Admin: 01/23/18 11:06 Dose: 1 mg Carvedilol (Coreg) 3.125 mg PO BID [facility] Last Admin: 01/23/18 11:37 Dose: 3.125 mg Dextrose (Dextrose 50% Inj) 0 ml IV STAT PRN; Protocol PRN Reason: Hypoglycemia Protocol Dextrose (Glutose 15) 0 gm PO ONCE PRN; Protocol PRN Reason: Hypoglycemia Protocol Docusate Sodium (Colace) 100 mg PO TID [facility] Last Admin: 01/23/18 14:03 Dose: 100 mg Ergocalciferol (Drisdol 50,000 Intl Units Cap) 1 cap PO QWK [facility] Famotidine (Pepcid) 20 mg PO BID [facility] Last Admin: 01/23/18 11:06 Dose: 20 mg Ferrous Sulfate (Feosol) 325 mg PO DAILY [facility] Last Admin: 01/23/18 11:04 Dose: 325 mg Furosemide (Lasix) 40 mg PO DAILY [facility] Last Admin: 01/23/18 11:06 Dose: 40 mg Glucagon (Glucagen Diagnostic Kit) 0 mg IM STAT PRN; Protocol PRN Reason: Hypoglycemia Protocol Heparin Sodium (Porcine) (Heparin) 5,000 units SC Q8 [facility] Last Admin: 01/23/18 14:03 Dose: 5,000 units Dextrose (Dextrose 5% In Water 1000 Ml) 1,000 mls @ 0 mls/hr IV .Q0M PRN; Protocol; Per Protocol PRN Reason: Hypoglycemia Protocol Insulin Human Regular (Novolin R) 0 unit SC ACHS [facility] PRN Reason: Protocol Last Admin: 01/23/18 12:26 Dose: Not Given Lactic Acid (Lac-Hydrin 12% Lotion (225 G)) 0 gm EXT BID [facility] Last Admin: 01/23/18 10:00 Dose: 1 applic Lidocaine (Lidoderm) 1 ea TD DAILY [facility] Last Admin: 01/23/18 12:28 Dose: 1 ea Losartan Potassium (Cozaar) 100 mg PO DAILY [facility] Last Admin: 01/23/18 10:55 Dose: Not Given Methylprednisolone (Solu-Medrol) 40 mg IV Q12 [facility] Last Admin: 01/23/18 13:47 Dose: 40 mg Montelukast Sodium (Singulair) 10 mg PO HS [facility] Last Admin: 01/22/18 21:28 Dose: 10 mg Oxycodone HCl (Oxycontin Extended Release Tab) 20 mg PO Q12 [facility] Last Admin: 01/23/18 11:03 Dose: 20 mg Oxycodone/Acetaminophen (Percocet 5/325 Mg Tab) 1 tab PO Q4H PRN PRN Reason: Pain, severe (8-10) Stop: 01/24/18 23:00 Last Admin: 01/23/18 12:35 Dose: 1 tab Prednisone (Prednisone Tab) 5 mg PO DAILY [facility] Last Admin: 01/23/18 11:06 Dose: 5 mg Saccharomyces Boulardii (Florastor) 250 mg PO BID [facility] Last Admin: 01/23/18 11:05 Dose: 250 mg Fluticasone/Salmeterol (Advair Diskus 250/50) 1 puff INH RQ12 [facility] Tamsulosin HCl (Flomax) 0.4 mg PO DAILY [facility] Last Admin: 01/23/18 11:05 Dose: 0.4 mg - Labs Labs: 01/23/18 08:09 01/23/18 08:09 PT 13.0 SECONDS (9.7-12.2) H 01/22/18 22:46 INR 1.2 01/22/18 22:46 APTT 29 SECONDS (21-34) 01/22/18 22:46 Assessment and Plan (1) COPD (chronic obstructive pulmonary disease) Status: Acute (2) Contusion of right knee Status: Acute
[2018-01-23 16:49] LABS: TOTAL PSA 0.2 ng/mL (< or = 4.0)
--- NOTE | 2018-01-23 22:16 | CP.PCM.PN ---
Subjective - Date & Time of Evaluation Date of Evaluation: 01/23/18 Time of Evaluation: 03:00 - Subjective Subjective: dictated Objective - Vital Signs/Intake and Output Vital Signs (last 24 hours): Temp Pulse Resp BP Pulse Ox 97.9 F 99 H 20 174/83 H 96 01/23/18 15:27 01/23/18 17:30 01/23/18 15:27 01/23/18 15:27 01/23/18 15:27 Intake and Output: 01/23/18 01/24/18 18:59 06:59 Intake Total 100 Output Total 1200 1100 Balance -1100 -1100 - Medications Medications: Current Medications Albuterol/Ipratropium (Duoneb 3 Mg/0.5 Mg (3 Ml) Ud) 3 ml INH RQ4 [facility] Last Admin: 01/23/18 19:48 Dose: 3 ml Allopurinol (Zyloprim) 300 mg PO DAILY [facility] Last Admin: 01/23/18 11:06 Dose: 300 mg Alprazolam (Xanax) 1 mg PO BID [facility] Last Admin: 01/23/18 17:18 Dose: 1 mg Carvedilol (Coreg) 3.125 mg PO BID [facility] Last Admin: 01/23/18 17:15 Dose: 3.125 mg Dextrose (Dextrose 50% Inj) 0 ml IV STAT PRN; Protocol PRN Reason: Hypoglycemia Protocol Dextrose (Glutose 15) 0 gm PO ONCE PRN; Protocol PRN Reason: Hypoglycemia Protocol Docusate Sodium (Colace) 100 mg PO TID [facility] Last Admin: 01/23/18 17:15 Dose: 100 mg Ergocalciferol (Drisdol 50,000 Intl Units Cap) 1 cap PO QWK [facility] Famotidine (Pepcid) 20 mg PO BID [facility] Last Admin: 01/23/18 17:24 Dose: 20 mg Ferrous Sulfate (Feosol) 325 mg PO DAILY [facility] Last Admin: 01/23/18 11:04 Dose: 325 mg Furosemide (Lasix) 40 mg PO DAILY [facility] Last Admin: 01/23/18 11:06 Dose: 40 mg Glucagon (Glucagen Diagnostic Kit) 0 mg IM STAT PRN; Protocol PRN Reason: Hypoglycemia Protocol Heparin Sodium (Porcine) (Heparin) 5,000 units SC Q8 [facility] Last Admin: 01/23/18 22:14 Dose: 5,000 units Dextrose (Dextrose 5% In Water 1000 Ml) 1,000 mls @ 0 mls/hr IV .Q0M PRN; Protocol; Per Protocol PRN Reason: Hypoglycemia Protocol Insulin Human Regular (Novolin R) 0 unit SC ACHS [facility] PRN Reason: Protocol Last Admin: 01/23/18 22:06 Dose: Not Given Lactic Acid (Lac-Hydrin 12% Lotion (225 G)) 0 gm EXT BID [facility] Last Admin: 01/23/18 18:29 Dose: 1 applic Lidocaine (Lidoderm) 1 ea TD DAILY [facility] Last Admin: 01/23/18 12:28 Dose: 1 ea Losartan Potassium (Cozaar) 100 mg PO DAILY [facility] Last Admin: 01/23/18 10:55 Dose: Not Given Methylprednisolone (Solu-Medrol) 40 mg IV Q12 [facility] Last Admin: 01/23/18 22:08 Dose: 40 mg Montelukast Sodium (Singulair) 10 mg PO HS [facility] Last Admin: 01/23/18 22:07 Dose: 10 mg Oxycodone HCl (Oxycontin Extended Release Tab) 20 mg PO Q12 [facility] Last Admin: 01/23/18 22:06 Dose: 20 mg Oxycodone/Acetaminophen (Percocet 5/325 Mg Tab) 1 tab PO Q4H PRN PRN Reason: Pain, severe (8-10) Stop: 01/24/18 23:00 Last Admin: 01/23/18 17:17 Dose: 1 tab Prednisone (Prednisone Tab) 5 mg PO DAILY [facility] Last Admin: 01/23/18 11:06 Dose: 5 mg Saccharomyces Boulardii (Florastor) 250 mg PO BID [facility] Last Admin: 01/23/18 17:16 Dose: 250 mg Fluticasone/Salmeterol (Advair Diskus 250/50) 1 puff INH RQ12 [facility] Tamsulosin HCl (Flomax) 0.4 mg PO DAILY [facility] Last Admin: 01/23/18 11:05 Dose: 0.4 mg - Labs Labs: 01/23/18 08:09 01/23/18 08:09 PT 13.0 SECONDS (9.7-12.2) H 01/22/18 22:46 INR 1.2 01/22/18 22:46 APTT 29 SECONDS (21-34) 01/22/18 22:46
[2018-01-24] MEDS: Albuterol-Ipratrop 3 mg / 0.5 (3 ml) UD INH SCH ×7 (00:14→23:45)
--- NOTE | 2018-01-24 02:23 | PN ---
DATE: 01/23/2018 SUBJECTIVE: The patient was admitted yesterday after a fall, and he had the knee __tap__ at that time when I went to see him. The physical therapist was standing there to give him therapy, and he was struggling to get up even. He still had right knee pain. He does have bilateral stasis dermatitis and edema. His right knee is swollen, but there was no redness noted. Otherwise, he has COPD. He was on oxygen. ROS: No sob,still some pain right knee ,complains of both hip pain ,no nausea no vomiting no diarrhea,no chest pain or uinary complaints,needs PT PHYSICAL EXAMINATION: VITAL SIGNS: T-max is 97.9, pulse 74, blood pressure 174/83, respirations are 20. HEENT: Head is atraumatic and normocephalic. NECK: Supple. LUNGS: Have decreased breath sounds. HEART: S1, S2 regular. ABDOMEN: Soft. Nontender. No guarding. No rigidity present. EXTREMITIES: Right knee had swelling and extremities had stasis dermatitis. LABORATORY DATA: Labs are noted. Labs showed white count is 7.1, hemoglobin 9.5, hematocrit 27.1, platelet count is 153 and potassium was 3.1 which we were going to supplement. Random glucose was 121. Magnesium was low 1.4. Residents are following that, and the patient's cultures, blood culture and wound culture came negative for 24 hours, and he is allergic to multiple drugs, and he was on vancomycin yesterday which we have removed. He is on allopurinol also and status post fall, probably gouty arthritis, and he is being followed by the Pulmonary. He will need physical therapy, and I would discontinue vancomycin at this time. I cannot give him anything oral because he has so many allergies. Tino Rodriguez MD MTDD
[2018-01-24] MEDS: Oxycodone/Acetaminophen 5/325 mg Tab PO PRN ×2 (03:37→17:39)
--- NOTE | 2018-01-24 07:05 | CP.PCM.PN ---
<Tamiko Thurman TeresoMandy - Last Filed: 01/24/18 18:25> Subjective - Date & Time of Evaluation Date of Evaluation: 01/24/18 Time of Evaluation: 07:00 - Subjective Subjective: Medicine Progress Note: Patient was seen and examined at bedside in the AM. Patient reports improvement of right knee pain and bilateral lower extremity swelling. Patient complains of "stiff neck," which he attributes to the repositioning overnight for pressure ulcer prophylaxis. Reports intermittent episodes of shortness of breath and wheezing since yesterday, which improves with Duoneb treatments. Otherwise patient denies fever, chills, headache, vision change, chest pain, cough, abdominal pain, nausea, vomiting, diarrhea, constipation, dizziness. Objective - Vital Signs/Intake and Output Vital Signs (last 24 hours): Temp Pulse Resp BP Pulse Ox 97.8 F 63 18 136/69 97 01/24/18 04:00 01/24/18 04:00 01/24/18 04:00 01/24/18 04:00 01/24/18 04:00 Intake and Output: 01/24/18 01/24/18 06:59 18:59 Output Total 1400 Balance -1400 - Medications Medications: Current Medications Albuterol/Ipratropium (Duoneb 3 Mg/0.5 Mg (3 Ml) Ud) 3 ml INH RQ4 [facility] Last Admin: 01/24/18 03:22 Dose: Not Given Allopurinol (Zyloprim) 300 mg PO DAILY [facility] Last Admin: 01/23/18 11:06 Dose: 300 mg Alprazolam (Xanax) 1 mg PO BID [facility] Last Admin: 01/23/18 17:18 Dose: 1 mg Carvedilol (Coreg) 6.25 mg PO BID [facility] Dextrose (Dextrose 50% Inj) 0 ml IV STAT PRN; Protocol PRN Reason: Hypoglycemia Protocol Dextrose (Glutose 15) 0 gm PO ONCE PRN; Protocol PRN Reason: Hypoglycemia Protocol Docusate Sodium (Colace) 100 mg PO TID [facility] Last Admin: 01/23/18 17:15 Dose: 100 mg Ergocalciferol (Drisdol 50,000 Intl Units Cap) 1 cap PO QWK [facility] Famotidine (Pepcid) 20 mg PO BID [facility] Last Admin: 01/23/18 17:24 Dose: 20 mg Ferrous Sulfate (Feosol) 325 mg PO DAILY [facility] Last Admin: 01/23/18 11:04 Dose: 325 mg Furosemide (Lasix) 40 mg PO DAILY [facility] Last Admin: 01/23/18 11:06 Dose: 40 mg Glucagon (Glucagen Diagnostic Kit) 0 mg IM STAT PRN; Protocol PRN Reason: Hypoglycemia Protocol Heparin Sodium (Porcine) (Heparin) 5,000 units SC Q8 [facility] Last Admin: 01/24/18 06:09 Dose: 5,000 units Dextrose (Dextrose 5% In Water 1000 Ml) 1,000 mls @ 0 mls/hr IV .Q0M PRN; Protocol; Per Protocol PRN Reason: Hypoglycemia Protocol Insulin Human Regular (Novolin R) 0 unit SC ACHS [facility] PRN Reason: Protocol Last Admin: 01/23/18 22:06 Dose: Not Given Lactic Acid (Lac-Hydrin 12% Lotion (225 G)) 0 gm EXT BID [facility] Last Admin: 01/23/18 18:29 Dose: 1 applic Lidocaine (Lidoderm) 1 ea TD DAILY [facility] Last Admin: 01/23/18 12:28 Dose: 1 ea Losartan Potassium (Cozaar) 100 mg PO DAILY [facility] Last Admin: 01/23/18 10:55 Dose: Not Given Methylprednisolone (Solu-Medrol) 40 mg IV Q12 [facility] Last Admin: 01/23/18 22:08 Dose: 40 mg Montelukast Sodium (Singulair) 10 mg PO HS [facility] Last Admin: 01/23/18 22:07 Dose: 10 mg Oxycodone HCl (Oxycontin Extended Release Tab) 20 mg PO Q12 [facility] Last Admin: 01/23/18 22:06 Dose: 20 mg Oxycodone/Acetaminophen (Percocet 5/325 Mg Tab) 1 tab PO Q4H PRN PRN Reason: Pain, severe (8-10) Stop: 01/24/18 23:00 Last Admin: 01/24/18 03:37 Dose: 1 tab Prednisone (Prednisone Tab) 5 mg PO DAILY [facility] Last Admin: 01/23/18 11:06 Dose: 5 mg Saccharomyces Boulardii (Florastor) 250 mg PO BID [facility] Last Admin: 01/23/18 17:16 Dose: 250 mg Fluticasone/Salmeterol (Advair Diskus 250/50) 1 puff INH RQ12 [facility] Tamsulosin HCl (Flomax) 0.4 mg PO DAILY [facility] Last Admin: 01/23/18 11:05 Dose: 0.4 mg - Labs Labs: 01/23/18 08:09 01/23/18 08:09 PT 13.0 SECONDS (9.7-12.2) H 01/22/18 22:46 INR 1.2 01/22/18 22:46 APTT 29 SECONDS (21-34) 01/22/18 22:46 - Constitutional Appears: No Acute Distress - Head Exam Head Exam: absent: NORMAL INSPECTION (healing cut on the right forehead ) - Eye Exam Eye Exam: EOMI, Normal appearance. absent: Scleral icterus - ENT Exam ENT Exam: Mucous Membranes Moist - Respiratory Exam Respiratory Exam: Wheezes, NORMAL BREATHING PATTERN - Cardiovascular Exam Cardiovascular Exam: REGULAR RHYTHM, +S1, +S2 - GI/Abdominal Exam GI & Abdominal Exam: Soft, Normal Bowel Sounds. absent: Tenderness - Extremities Exam Extremities Exam: Joint Swelling ((right knee swelling (mild) and tenderness ), Pedal Edema, Tenderness (right knee). absent: Full ROM (decreased ROM of right knee) - Neurological Exam Neurological Exam: Alert, Awake, Oriented x3 - Psychiatric Exam Psychiatric exam: Normal Affect, Normal Mood - Skin Skin Exam: Warm. absent: Normal Color (bilateral venous stasis LE) Assessment and Plan - Assessment and Plan (Free Text) Assessment: 57 year old male with past medical history of CHF, COPD, HTN, DM, bladder CA with suspected septic arthritis of right knee s/p mechanical fall 01/21/18. New onset dyspnea - Pulm consult: Dr. Shah --> help appreciated - ABG (01/24/18) to evaluate patient's status on room air. pH 7.52; CO2 44; HCO3: 33.9 - Per Dr. Shah patient is stable for [facility] and to be discharged with Breo Ellipta Inhaler and nebulizer treatment - Chest x-ray (01/23/18): No active pulmonary disease. - Initial chest x-ray (01/21/18): No active disease. No acute/significant interval changes. - Increase Duoneb frequency to Q4H - Supplemental oxygen - Solu medrol 40mg IV q12h - Continue telemetry monitoring Contusion of the Right Knee - Orthopedic surgery consulted: Dr. ElGazzar --> help appreciated - ID consulted: Dr. Rodriguez --> help appreciated - WBC 8.9 --> 7.8 --> 7.1 - Knee CT (01/21/18): Diffuse soft tissue edema. Small right joint effusion - knee x-ray 3 views: No acute fracture. Right patellar and suprapatellar soft tissue swelling and adjacent suprapatellar effusion. - Right knee synovial fluid aspirated on 01/21/18 on admission * Negative crystals * WBC 10,962; RBC 1,132,220; Neutrophil 67, Lymphocyte 23, Monos/macorphage 10 * f/u cell count/differential, uric acid - Lactic acid (01/22/18): 0.7 - Wound culture preliminary * gram stain shows moderate PMN WBCs, no organisms seen - blood culture: negative - Medications * Vancomycin 1gm IVPB Q24H (started 01/21/18) --> discontinued 01/23/18 s/p Mechanical Fall - Head CT without contrast (01/21/18): No evidence of acute intracranial hemorrhage mass effect or midline shift. Low-attenuation fluid along the right aspect of the interhemispheric falx with maximum thickness of 7 millimeter may represent hygroma or old subdural collection. Moderate atrophy and moderate presumed chronic microvascular white matter ischemic disease. - PT/OT evaluation for gait dysfunction Thrombocytopenia - Platelet count 206 --> 112 --> 153 - possibly secondary to right knee fluid aspiration which resulted in high RBC ( [id number]) - f/u heparin-induced platelet antibody, serotonin level - PT/PTT - Continue to monitor Bilateral lower extremity edema secondary to chronic venous insufficiency - CT Angio Chest PE protocol (01/21/18): No pulmonary embolism. No focal consolidation. Multiple chronic bilateral rib fractures. - venous duplex: negative - Wound Care --> help appreciated - Medications * Lac-Hydrin 12% Lotion apply to area BID Chronic pain syndrome - Medications verified through patient's pharmacy [facility] ([phone] ) - UDS positive for opiates and benzodiazepines - Alcohol quantitative < 10 - Medications * Xanax 1mg PO BID * Lidocaine Patch daily * Oxycontin 20mg PO Q12 * Percocet 5/325 PO Q4H PRN History of bladder CA - Stable at this time - Urine C&S ordered and pending - Urology Dr. Bellamy consult deferred at this time, patient asymptomatic -- will consult appropriately - Continue home medication * Flomax 0.4mg PO QD History of CHF - Cardiology consulted: Dr. 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's chaplaincy) --> help appreciated - Per Dr. Owen patient is stable for discharge - Patient to be transferred to telemetry - ECHO (01/23/18): Normal study; LVEF 70% - Maintain head of bead 45 degrees - Continue home medications * Lasix 40mg PO QD * Cozaar 100mg PO QD History of HTN - Continue home medications * Cozaar 100mg PO QD * Coreg 3.125mg po bid History of DM - HgbA1c (01/22/18): 5.7 - Continue monitoring with Accuchecks - Medications * hold home medication Metformin 500mg bid * ISS and hypoglycemia protocols History of COPD - Pulmonology consulted: Dr. Shah (patient's mosquito sprayer) --> help appreciated - Continue home medications * Duoneb 3ml INH RQ6 PRN * Advair Diskus 250/50 1 puff INH RQ12 * Singulair 10mg PO QHS * Prednisone 5mg PO QD History of gout - Continue home medication * Allopurinol 300mg PO QD Electrolyte deficiency - Potassium: 4.4 --> 3.6 --> 3.1 - Magnesium: 1.4 - Likely secondary to Lasix - K-Dur 40 mEq PO once - Magnesium sulfate 1gm IVPB once - Continue to Monitor Prophylaxis - SCDs - Consistent carbohydrate diet - Glucerna supplement as ordered - Florastor 250mg PO BID - Colace 100mg PO TID - Pepcid 20mg PO BID - heparin SC q8 - PT/OT evaluation Disposition: Patient is stable for discharge to [facility] pending placement. Case discussed with Dr. Allison Thurman PGY-1 <Tabby Cooper V - Last Filed: 01/24/18 22:31> Objective - Vital Signs/Intake and Output Vital Signs (last 24 hours): Temp Pulse Resp BP Pulse Ox 98.0 F 78 20 138/77 98 01/24/18 15:08 01/24/18 15:08 01/24/18 15:08 01/24/18 15:08 01/24/18 15:08 Intake and Output: 01/24/18 01/25/18 18:59 06:59 Output Total 450 Balance -450 - Medications Medications: Current Medications Albuterol/Ipratropium (Duoneb 3 Mg/0.5 Mg (3 Ml) Ud) 3 ml INH RQ4 [facility] Last Admin: 01/24/18 20:09 Dose: Not Given Allopurinol (Zyloprim) 300 mg PO DAILY [facility] Last Admin: 01/24/18 09:38 Dose: 300 mg Alprazolam (Xanax) 1 mg PO BID [facility] Last Admin: 01/24/18 17:38 Dose: 1 mg Carvedilol (Coreg) 6.25 mg PO BID [facility] Last Admin: 01/24/18 22:09 Dose: Not Given Dextrose (Dextrose 50% Inj) 0 ml IV STAT PRN; Protocol PRN Reason: Hypoglycemia Protocol Dextrose (Glutose 15) 0 gm PO ONCE PRN; Protocol PRN Reason: Hypoglycemia Protocol Docusate Sodium (Colace) 100 mg PO TID [facility] Last Admin: 01/24/18 17:38 Dose: 100 mg Ergocalciferol (Drisdol 50,000 Intl Units Cap) 1 cap PO QWK [facility] Famotidine (Pepcid) 20 mg PO BID [facility] Last Admin: 01/24/18 17:38 Dose: 20 mg Ferrous Sulfate (Feosol) 325 mg PO DAILY [facility] Last Admin: 01/24/18 09:38 Dose: 325 mg Furosemide (Lasix) 40 mg PO DAILY [facility] Last Admin: 01/24/18 09:39 Dose: 40 mg Glucagon (Glucagen Diagnostic Kit) 0 mg IM STAT PRN; Protocol PRN Reason: Hypoglycemia Protocol Heparin Sodium (Porcine) (Heparin) 5,000 units SC Q8 [facility] Last Admin: 01/24/18 22:11 Dose: 5,000 units Dextrose (Dextrose 5% In Water 1000 Ml) 1,000 mls @ 0 mls/hr IV .Q0M PRN; Protocol; Per Protocol PRN Reason: Hypoglycemia Protocol Insulin Human Regular (Novolin R) 0 unit SC ACHS [facility] PRN Reason: Protocol Last Admin: 01/24/18 22:12 Dose: Not Given Lactic Acid (Lac-Hydrin 12% Lotion (225 G)) 0 gm EXT BID [facility] Last Admin: 01/24/18 17:38 Dose: 1 applic Lidocaine (Lidoderm) 1 ea TD DAILY [facility] Last Admin: 01/24/18 09:38 Dose: 1 ea Losartan Potassium (Cozaar) 100 mg PO DAILY [facility] Last Admin: 01/24/18 09:38 Dose: 100 mg Methylprednisolone (Solu-Medrol) 40 mg IV Q12 [facility] Last Admin: 01/24/18 22:11 Dose: 40 mg Montelukast Sodium (Singulair) 10 mg PO HS [facility] Last Admin: 01/24/18 22:11 Dose: 10 mg Oxycodone HCl (Oxycontin Extended Release Tab) 20 mg PO Q12 [facility] Last Admin: 01/24/18 22:10 Dose: 20 mg Oxycodone/Acetaminophen (Percocet 5/325 Mg Tab) 1 tab PO Q4H PRN PRN Reason: Pain, severe (8-10) Stop: 01/24/18 23:00 Last Admin: 01/24/18 17:39 Dose: 1 tab Prednisone (Prednisone Tab) 5 mg PO DAILY [facility] Last Admin: 01/23/18 11:06 Dose: 5 mg Saccharomyces Boulardii (Florastor) 250 mg PO BID [facility] Last Admin: 01/24/18 17:38 Dose: 250 mg Fluticasone/Salmeterol (Advair Diskus 250/50) 1 puff INH RQ12 [facility] Tamsulosin HCl (Flomax) 0.4 mg PO DAILY [facility] Last Admin: 01/24/18 09:38 Dose: 0.4 mg - Labs Labs: 01/24/18 07:03 01/24/18 07:03 PT 13.0 SECONDS (9.7-12.2) H 01/22/18 22:46 INR 1.2 01/22/18 22:46 APTT 29 SECONDS (21-34) 01/22/18 22:46 Attending/Attestation - Attestation I have personally seen and examined this patient.: Yes I have fully participated in the care of the patient.: Yes I have reviewed all pertinent clinical information, including history, physical exam and plan: Yes Notes (Text): Patient seen, examined and case discussed with day-time resident. Agree with the assessment and plan as written by the resident. Blood pressure controlled with anti-hypertensive medication regimen. Patient reports he is breathing better and continues to work with physical therapy and occupational therapy. Patient does not want his medical information shared with his sister, we have let nursing know. Patient is amenable to subacute rehab which was discussed with social and case management. Cardiology, pulmonary, and ID stable from their standpoint for discharge. Discharge order is placed whenever [facility] bed is available.
[2018-01-24 07:33] LABS: BASO % 0.2 % (0.0-2.0); HEMOGLOBIN 9.8 g/dL (12.0-18.0); LYMPH # 0.8 K/uL (1.0-4.3); LYMPH % 15.2 % (20.0-40.0); MEAN CELL VOLUME 86.9 fL (80.0-94.0); MEAN CORPUSCULAR HEMOGLOBIN 29.9 pg (27.0-31.0); MEAN CORPUSCULAR HGB CONC 34.4 g/dL (33.0-37.0); MEAN PLATELET VOLUME 7.9 fL (7.2-11.7); MONO # 0.3 K/uL (0.0-0.8); MONO % 6.4 % (0.0-10.0); NEUT # 4.2 K/uL (1.8-7.0); NEUT % 78.2 % (50.0-75.0); NRBC % 0.1 % (0.0-2.0); RBC 3.28 Mil/uL (4.40-5.90); RED CELL DISTRIBUTION WIDTH 14.2 % (11.5-14.5); WHITE BLOOD COUNT 5.4 K/uL (4.8-10.8)
[2018-01-24 07:37] LABS: ALB/GLOB RATIO 1.3 (1.0-2.1); ALBUMIN 4.2 g/dL (3.5-5.0); ALT/SGPT 27 U/L (21-72); AST/SGOT 33 U/L (17-59); BLOOD UREA NITROGEN 21 mg/dL (9-20); CALCIUM 9.1 mg/dl (8.6-10.4); GFR AFRICAN-AMERICAN > 60; GFR NON-AFRICAN AMERICAN > 60
--- NOTE | 2018-01-24 08:21 | CP.PCM.PN ---
Subjective - Date & Time of Evaluation Date of Evaluation: 01/24/18 Time of Evaluation: 08:00 - Subjective Subjective: patient has no current chest pain. Objective - Vital Signs/Intake and Output Vital Signs (last 24 hours): Temp Pulse Resp BP Pulse Ox 97.8 F 63 18 136/69 97 01/24/18 04:00 01/24/18 04:00 01/24/18 04:00 01/24/18 04:00 01/24/18 04:00 Intake and Output: 01/24/18 01/24/18 06:59 18:59 Intake Total 300 Output Total 1400 Balance -1100 - Medications Medications: Current Medications Albuterol/Ipratropium (Duoneb 3 Mg/0.5 Mg (3 Ml) Ud) 3 ml INH RQ4 [facility] Last Admin: 01/24/18 07:20 Dose: 3 ml Allopurinol (Zyloprim) 300 mg PO DAILY [facility] Last Admin: 01/23/18 11:06 Dose: 300 mg Alprazolam (Xanax) 1 mg PO BID [facility] Last Admin: 01/23/18 17:18 Dose: 1 mg Carvedilol (Coreg) 6.25 mg PO BID [facility] Dextrose (Dextrose 50% Inj) 0 ml IV STAT PRN; Protocol PRN Reason: Hypoglycemia Protocol Dextrose (Glutose 15) 0 gm PO ONCE PRN; Protocol PRN Reason: Hypoglycemia Protocol Docusate Sodium (Colace) 100 mg PO TID [facility] Last Admin: 01/23/18 17:15 Dose: 100 mg Ergocalciferol (Drisdol 50,000 Intl Units Cap) 1 cap PO QWK [facility] Famotidine (Pepcid) 20 mg PO BID [facility] Last Admin: 01/23/18 17:24 Dose: 20 mg Ferrous Sulfate (Feosol) 325 mg PO DAILY [facility] Last Admin: 01/23/18 11:04 Dose: 325 mg Furosemide (Lasix) 40 mg PO DAILY [facility] Last Admin: 01/23/18 11:06 Dose: 40 mg Glucagon (Glucagen Diagnostic Kit) 0 mg IM STAT PRN; Protocol PRN Reason: Hypoglycemia Protocol Heparin Sodium (Porcine) (Heparin) 5,000 units SC Q8 [facility] Last Admin: 01/24/18 06:09 Dose: 5,000 units Dextrose (Dextrose 5% In Water 1000 Ml) 1,000 mls @ 0 mls/hr IV .Q0M PRN; Protocol; Per Protocol PRN Reason: Hypoglycemia Protocol Insulin Human Regular (Novolin R) 0 unit SC ACHS [facility] PRN Reason: Protocol Last Admin: 01/23/18 22:06 Dose: Not Given Lactic Acid (Lac-Hydrin 12% Lotion (225 G)) 0 gm EXT BID [facility] Last Admin: 01/23/18 18:29 Dose: 1 applic Lidocaine (Lidoderm) 1 ea TD DAILY [facility] Last Admin: 01/23/18 12:28 Dose: 1 ea Losartan Potassium (Cozaar) 100 mg PO DAILY [facility] Last Admin: 01/23/18 10:55 Dose: Not Given Methylprednisolone (Solu-Medrol) 40 mg IV Q12 [facility] Last Admin: 01/23/18 22:08 Dose: 40 mg Montelukast Sodium (Singulair) 10 mg PO HS [facility] Last Admin: 01/23/18 22:07 Dose: 10 mg Oxycodone HCl (Oxycontin Extended Release Tab) 20 mg PO Q12 [facility] Last Admin: 01/23/18 22:06 Dose: 20 mg Oxycodone/Acetaminophen (Percocet 5/325 Mg Tab) 1 tab PO Q4H PRN PRN Reason: Pain, severe (8-10) Stop: 01/24/18 23:00 Last Admin: 01/24/18 03:37 Dose: 1 tab Prednisone (Prednisone Tab) 5 mg PO DAILY [facility] Last Admin: 01/23/18 11:06 Dose: 5 mg Saccharomyces Boulardii (Florastor) 250 mg PO BID [facility] Last Admin: 01/23/18 17:16 Dose: 250 mg Fluticasone/Salmeterol (Advair Diskus 250/50) 1 puff INH RQ12 [facility] Tamsulosin HCl (Flomax) 0.4 mg PO DAILY [facility] Last Admin: 01/23/18 11:05 Dose: 0.4 mg - Labs Labs: 01/24/18 07:03 01/24/18 07:03 PT 13.0 SECONDS (9.7-12.2) H 01/22/18 22:46 INR 1.2 01/22/18 22:46 APTT 29 SECONDS (21-34) 01/22/18 22:46 - Constitutional Appears: Non-toxic - Head Exam Head Exam: NORMAL INSPECTION - Eye Exam Eye Exam: Normal appearance - ENT Exam ENT Exam: Mucous Membranes Moist - Neck Exam Neck Exam: Full ROM - Respiratory Exam Respiratory Exam: Decreased Breath Sounds - Cardiovascular Exam Cardiovascular Exam: REGULAR RHYTHM - GI/Abdominal Exam GI & Abdominal Exam: Normal Bowel Sounds - Rectal Exam Rectal Exam: Deferred - Extremities Exam Extremities Exam: Pedal Edema - Back Exam Back Exam: NORMAL INSPECTION - Neurological Exam Neurological Exam: Alert - Psychiatric Exam Psychiatric exam: Normal Affect - Skin Skin Exam: Normal Color Assessment and Plan (1) HTN (hypertension) Assessment & Plan: medical therapy. echocardiogram reveals normal left ventricular function Status: Acute
[2018-01-24 09:25] VITALS: RESP 20
[2018-01-24] MEDS ORDERED: Potassium Chloride 10 mEq ER Tab PO ONE (09:29)
[2018-01-24] MEDS: MethylPREDNISolone 40 mg Vial IV SCH ×2 (09:37→22:11)
[2018-01-24] MEDS: (Novolin R) Insulin Human Regular 100 units/ml vial SC SCH ×4 (09:37→22:12)
[2018-01-24] MEDS: Saccharomyces Boulardi 250 mg Cap PO SCH ×2 (09:38→17:38)
[2018-01-24] MEDS: Lidocaine 5% Patch TD SCH (09:38)
[2018-01-24] MEDS: oxyCODONE 20 mg ER Tab (oxyCONTIN) PO SCH ×2 (09:39→22:10)
[2018-01-24] MEDS: Ammonium Lactate 12% Lotion (225 g) EXT SCH ×2 (09:41→17:38)
--- NOTE | 2018-01-24 12:00 | CARD ---
APPROVED REPORT EXAM: Two-dimensional and M-mode echocardiogram with Doppler and color Doppler. Other Information Quality : TDSRhythm : INDICATION Dyspnea 2D DIMENSIONS IVSd1.1 (0.7-1.1cm)LVDd4.5 (3.9-5.9cm) PWd1.1 (0.7-1.1cm)LVDs3.3 (2.5-4.0cm) FS (%) 27.1 %LVEF (%)61.0 (>50%) M-Mode DIMENSIONS Left Atrium (MM)3.85 (2.5-4.0cm)Aortic Root3.43 (2.2-3.7cm) Aortic Cusp Exc.2.61 (1.5-2.0cm) Mitral Valve MV E Uqxbwlah43.6cm/sMV A Vqerdvkc30.0cm/sE/A ratio1.0 TDI E/Lateral E'0.0E/Medial E'0.0 Tricuspid Valve TR Peak Scqncdvw212bn/sTR Peak Gr.28mmHg LEFT VENTRICLE The left ventricle is normal size. There is normal left ventricular wall thickness. The left ventricular function is normal. The left ventricular ejection fraction is within the normal range. There is normal LV segmental wall motion. The left ventricular diastolic function is normal. No left ventricle thrombus noted on this study. There is no ventricular septal defect visualized. There is no left ventricular aneurysm. There is no mass noted in the left ventricle. RIGHT VENTRICLE The right ventricle is normal size. There is normal right ventricular wall thickness. The right ventricular systolic function is normal. ATRIA The left atrium size is normal. The right atrium size is normal. AORTIC VALVE The aortic valve is normal in structure. No aortic regurgitation is present. There is no aortic valvular stenosis. MITRAL VALVE The mitral valve is normal in structure. There is no mitral valve stenosis. There is no mitral valve regurgitation noted. TRICUSPID VALVE The tricuspid valve is normal in structure. There is no tricuspid valve regurgitation noted. PULMONIC VALVE The pulmonary valve is normal in structure. There is no pulmonic valvular regurgitation. GREAT VESSELS The aortic root is normal in size. The ascending aorta is normal in size. The pulmonary artery is normal. The IVC is normal in size and collapses >50% with inspiration. PERICARDIAL EFFUSION There is no pericardial effusion. <Conclusion> NORMAL STUDY. TACHYCARDIC HEART RATE. LVEF IS 70%.
--- NOTE | 2018-01-24 14:20 | CP.PCM.PN ---
Subjective - Date & Time of Evaluation Date of Evaluation: 01/24/18 Time of Evaluation: 01:45 - Subjective Subjective: dictated Objective - Vital Signs/Intake and Output Vital Signs (last 24 hours): Temp Pulse Resp BP Pulse Ox 98.3 F 69 20 144/70 99 01/24/18 09:23 01/24/18 09:23 01/24/18 09:23 01/24/18 09:39 01/24/18 09:23 Intake and Output: 01/24/18 01/24/18 06:59 18:59 Intake Total 300 Output Total 1400 Balance -1100 - Medications Medications: Current Medications Albuterol/Ipratropium (Duoneb 3 Mg/0.5 Mg (3 Ml) Ud) 3 ml INH RQ4 [facility] Last Admin: 01/24/18 11:04 Dose: 3 ml Allopurinol (Zyloprim) 300 mg PO DAILY [facility] Last Admin: 01/24/18 09:38 Dose: 300 mg Alprazolam (Xanax) 1 mg PO BID [facility] Last Admin: 01/24/18 09:38 Dose: 1 mg Carvedilol (Coreg) 6.25 mg PO BID [facility] Last Admin: 01/24/18 10:28 Dose: Not Given Dextrose (Dextrose 50% Inj) 0 ml IV STAT PRN; Protocol PRN Reason: Hypoglycemia Protocol Dextrose (Glutose 15) 0 gm PO ONCE PRN; Protocol PRN Reason: Hypoglycemia Protocol Docusate Sodium (Colace) 100 mg PO TID [facility] Last Admin: 01/24/18 13:11 Dose: 100 mg Ergocalciferol (Drisdol 50,000 Intl Units Cap) 1 cap PO QWK [facility] Famotidine (Pepcid) 20 mg PO BID [facility] Last Admin: 01/24/18 09:38 Dose: 20 mg Ferrous Sulfate (Feosol) 325 mg PO DAILY [facility] Last Admin: 01/24/18 09:38 Dose: 325 mg Furosemide (Lasix) 40 mg PO DAILY [facility] Last Admin: 01/24/18 09:39 Dose: 40 mg Glucagon (Glucagen Diagnostic Kit) 0 mg IM STAT PRN; Protocol PRN Reason: Hypoglycemia Protocol Heparin Sodium (Porcine) (Heparin) 5,000 units SC Q8 [facility] Last Admin: 01/24/18 13:11 Dose: 5,000 units Dextrose (Dextrose 5% In Water 1000 Ml) 1,000 mls @ 0 mls/hr IV .Q0M PRN; Protocol; Per Protocol PRN Reason: Hypoglycemia Protocol Insulin Human Regular (Novolin R) 0 unit SC ACHS [facility] PRN Reason: Protocol Last Admin: 01/24/18 13:11 Dose: 6 unit Lactic Acid (Lac-Hydrin 12% Lotion (225 G)) 0 gm EXT BID [facility] Last Admin: 01/24/18 09:41 Dose: 1 applic Lidocaine (Lidoderm) 1 ea TD DAILY [facility] Last Admin: 01/24/18 09:38 Dose: 1 ea Losartan Potassium (Cozaar) 100 mg PO DAILY [facility] Last Admin: 01/24/18 09:38 Dose: 100 mg Methylprednisolone (Solu-Medrol) 40 mg IV Q12 [facility] Last Admin: 01/24/18 09:37 Dose: 40 mg Montelukast Sodium (Singulair) 10 mg PO HS [facility] Last Admin: 01/23/18 22:07 Dose: 10 mg Oxycodone HCl (Oxycontin Extended Release Tab) 20 mg PO Q12 [facility] Last Admin: 01/24/18 09:39 Dose: 20 mg Oxycodone/Acetaminophen (Percocet 5/325 Mg Tab) 1 tab PO Q4H PRN PRN Reason: Pain, severe (8-10) Stop: 01/24/18 23:00 Last Admin: 01/24/18 03:37 Dose: 1 tab Prednisone (Prednisone Tab) 5 mg PO DAILY [facility] Last Admin: 01/23/18 11:06 Dose: 5 mg Saccharomyces Boulardii (Florastor) 250 mg PO BID [facility] Last Admin: 01/24/18 09:38 Dose: 250 mg Fluticasone/Salmeterol (Advair Diskus 250/50) 1 puff INH RQ12 [facility] Tamsulosin HCl (Flomax) 0.4 mg PO DAILY [facility] Last Admin: 01/24/18 09:38 Dose: 0.4 mg - Labs Labs: 01/24/18 07:03 01/24/18 07:03 PT 13.0 SECONDS (9.7-12.2) H 01/22/18 22:46 INR 1.2 01/22/18 22:46 APTT 29 SECONDS (21-34) 01/22/18 22:46
[2018-01-24 16:34] LABS: ARTERIAL BLOOD GAS HCO3 33.9 mmol/L (21-28); ARTERIAL BLOOD GAS HEMOGLOBIN 11.8 g/dL (11.7-17.4); ARTERIAL BLOOD GAS O2 SAT 92.3 % (95-98); ARTERIAL BLOOD GAS PCO2 44 mm/Hg (35-45); ARTERIAL BLOOD GAS PH 7.52 (7.35-7.45); ARTERIAL BLOOD GAS PO2 62 mm/Hg (80-100); ARTERIAL BLOOD GAS TCO2 37.3 mmol/L (22-28)
--- NOTE | 2018-01-24 16:45 | CP.PCM.PN ---
Subjective - Date & Time of Evaluation Date of Evaluation: 01/24/18 Time of Evaluation: 10:20 - Subjective Subjective: Reason for consult: Dyspnea on exertion/COPD Patient seen today and appears clinically improved. Patient sitting at 90 degrees in arm chair near bed and conversational with nasal cannula. Yesterday' s chest x-ray revealed no significant findings and patient's lungs are clear to auscultation bilaterally. Patient expresses interest in home pulse oxymeter to monitor oxygen saturation levels. Patient denies chest pain, palpitations and nausea. Assessment/Plan 1. COPD CXR done yesterday, 01/23, shows no significant findings. Lung exam essentially normal today with both lungs clear to auscultation in all mccall; O2 saturation in high 90's on nasal cannula. Will give prescription for Breo and neb treat and sign off 2. Contusion right knee Clinically stable and being managed by Medicine team. Objective - Vital Signs/Intake and Output Vital Signs (last 24 hours): Temp Pulse Resp BP Pulse Ox 98.0 F 78 20 138/77 98 01/24/18 15:08 01/24/18 15:08 01/24/18 15:08 01/24/18 15:08 01/24/18 15:08 Intake and Output: 01/24/18 01/24/18 06:59 18:59 Intake Total 300 Output Total 1400 Balance -1100 - Medications Medications: Current Medications Albuterol/Ipratropium (Duoneb 3 Mg/0.5 Mg (3 Ml) Ud) 3 ml INH RQ4 [facility] Last Admin: 01/24/18 11:04 Dose: 3 ml Allopurinol (Zyloprim) 300 mg PO DAILY [facility] Last Admin: 01/24/18 09:38 Dose: 300 mg Alprazolam (Xanax) 1 mg PO BID [facility] Last Admin: 01/24/18 09:38 Dose: 1 mg Carvedilol (Coreg) 6.25 mg PO BID [facility] Last Admin: 01/24/18 10:28 Dose: Not Given Dextrose (Dextrose 50% Inj) 0 ml IV STAT PRN; Protocol PRN Reason: Hypoglycemia Protocol Dextrose (Glutose 15) 0 gm PO ONCE PRN; Protocol PRN Reason: Hypoglycemia Protocol Docusate Sodium (Colace) 100 mg PO TID [facility] Last Admin: 01/24/18 13:11 Dose: 100 mg Ergocalciferol (Drisdol 50,000 Intl Units Cap) 1 cap PO QWK [facility] Famotidine (Pepcid) 20 mg PO BID [facility] Last Admin: 01/24/18 09:38 Dose: 20 mg Ferrous Sulfate (Feosol) 325 mg PO DAILY [facility] Last Admin: 01/24/18 09:38 Dose: 325 mg Furosemide (Lasix) 40 mg PO DAILY [facility] Last Admin: 01/24/18 09:39 Dose: 40 mg Glucagon (Glucagen Diagnostic Kit) 0 mg IM STAT PRN; Protocol PRN Reason: Hypoglycemia Protocol Heparin Sodium (Porcine) (Heparin) 5,000 units SC Q8 [facility] Last Admin: 01/24/18 13:11 Dose: 5,000 units Dextrose (Dextrose 5% In Water 1000 Ml) 1,000 mls @ 0 mls/hr IV .Q0M PRN; Protocol; Per Protocol PRN Reason: Hypoglycemia Protocol Insulin Human Regular (Novolin R) 0 unit SC ACHS [facility] PRN Reason: Protocol Last Admin: 01/24/18 13:11 Dose: 6 unit Lactic Acid (Lac-Hydrin 12% Lotion (225 G)) 0 gm EXT BID [facility] Last Admin: 01/24/18 09:41 Dose: 1 applic Lidocaine (Lidoderm) 1 ea TD DAILY [facility] Last Admin: 01/24/18 09:38 Dose: 1 ea Losartan Potassium (Cozaar) 100 mg PO DAILY [facility] Last Admin: 01/24/18 09:38 Dose: 100 mg Methylprednisolone (Solu-Medrol) 40 mg IV Q12 [facility] Last Admin: 01/24/18 09:37 Dose: 40 mg Montelukast Sodium (Singulair) 10 mg PO HS [facility] Last Admin: 01/23/18 22:07 Dose: 10 mg Oxycodone HCl (Oxycontin Extended Release Tab) 20 mg PO Q12 [facility] Last Admin: 01/24/18 09:39 Dose: 20 mg Oxycodone/Acetaminophen (Percocet 5/325 Mg Tab) 1 tab PO Q4H PRN PRN Reason: Pain, severe (8-10) Stop: 01/24/18 23:00 Last Admin: 01/24/18 03:37 Dose: 1 tab Prednisone (Prednisone Tab) 5 mg PO DAILY [facility] Last Admin: 01/23/18 11:06 Dose: 5 mg Saccharomyces Boulardii (Florastor) 250 mg PO BID [facility] Last Admin: 01/24/18 09:38 Dose: 250 mg Fluticasone/Salmeterol (Advair Diskus 250/50) 1 puff INH RQ12 [facility] Tamsulosin HCl (Flomax) 0.4 mg PO DAILY [facility] Last Admin: 01/24/18 09:38 Dose: 0.4 mg - Labs Labs: 01/24/18 07:03 01/24/18 07:03 PT 13.0 SECONDS (9.7-12.2) H 01/22/18 22:46 INR 1.2 01/22/18 22:46 APTT 29 SECONDS (21-34) 01/22/18 22:46 Assessment and Plan (1) COPD (chronic obstructive pulmonary disease) Status: Acute (2) Contusion of right knee Status: Acute
--- NOTE | 2018-01-25 02:18 | PN ---
DATE: 01/24/2018 SUBJECTIVE: This patient has been followed, they did a knee tap. He feels a little better today. He is concerned. He says that the hip joints are the ones which are giving him more problems as he has vascular necrosis. He says he has always been on 30 mg of prednisone, which is a high dose, but I told him that his pulmonary doctor knows better about him and let him decide what they want to do, and he was breathing easier. He did come in with shortness of breath. He has COPD, and he needs to get physical therapy. He did have contusion in the right knee and had effusion. He also suffers from gout, and he says he has been on allopurinol all along and he was feeling better. He asked about the culture. Culture has been negative from the fluid so far, and the fluid was bloody, probably secondary to the contusion that he had. PHYSICAL EXAMINATION: VITAL SIGNS: T-max is 98, pulse 78, blood pressure 138/77, saturations 98%, respirations are 20. HEENT: Atraumatic, normocephalic. NECK: Supple. He is obese. LUNGS: Clear to auscultation. No crackles or rales present. HEART: S1, S2 regular. ABDOMEN: Soft, nontender. No guarding. No rigidity present. EXTREMITIES: Right knee does have a little effusion but has no signs of cellulitis or infection, and he did have dressings on his lower extremities where he has stasis dermatitis, and he tells me when they put the Venodyne boot, it rubs it, and to prevent any friction, they had put dressings on the legs for that. At this time micro-leon, his culture is negative, no growth so far, but I told him, they keep it for 72 hours and blood culture x2 are negative, so I am assured that there is no infection at this time, and he is off IV medications, also HE HAS TOO MANY DRUG ALLERGIES. He needs physical therapy for ambulation. Tino Rodriguez MD
[2018-01-25] MEDS: Albuterol-Ipratrop 3 mg / 0.5 (3 ml) UD INH SCH ×3 (04:21→11:13)
[2018-01-25 07:33] LABS: BASO % 0.1 % (0.0-2.0); HEMOGLOBIN 10.2 g/dL (12.0-18.0); LYMPH # 0.9 K/uL (1.0-4.3); LYMPH % 12.2 % (20.0-40.0); MEAN CELL VOLUME 86.7 fL (80.0-94.0); MEAN CORPUSCULAR HGB CONC 34.6 g/dL (33.0-37.0); MEAN PLATELET VOLUME 7.9 fL (7.2-11.7); MONO # 0.3 K/uL (0.0-0.8); MONO % 4.7 % (0.0-10.0); NEUT # 6.1 K/uL (1.8-7.0); NRBC % 0.1 % (0.0-2.0); RBC 3.4 Mil/uL (4.40-5.90); RED CELL DISTRIBUTION WIDTH 13.9 % (11.5-14.5); WHITE BLOOD COUNT 7.4 K/uL (4.8-10.8)
[2018-01-25 07:43] LABS: ALB/GLOB RATIO 1.4 (1.0-2.1); ALBUMIN 4.1 g/dL (3.5-5.0); ALT/SGPT 19 U/L (21-72); AST/SGOT 26 U/L (17-59); BLOOD UREA NITROGEN 30 mg/dL (9-20); CALCIUM 8.9 mg/dl (8.6-10.4); GFR AFRICAN-AMERICAN > 60; GFR NON-AFRICAN AMERICAN > 60
[2018-01-25] MEDS ORDERED: Oxycodone/Acetaminophen 5/325 mg Tab PO STA (08:44)
[2018-01-25 08:49] VITALS: PULSE 72; TEMP 98.5; O2SAT 97
[2018-01-25] MEDS: (Novolin R) Insulin Human Regular 100 units/ml vial SC SCH ×2 (08:49→13:05)
[2018-01-25] MEDS ORDERED: Potassium Chloride 20 mEq ER Tab PO ONE (09:15)
[2018-01-25] MEDS: Lidocaine 5% Patch TD SCH (09:37)
[2018-01-25] MEDS: MethylPREDNISolone 40 mg Vial IV SCH (09:40)
[2018-01-25] MEDS: Saccharomyces Boulardi 250 mg Cap PO SCH (09:40)
[2018-01-25 09:50] VITALS: BP 130/70
[2018-01-25] MEDS: Ammonium Lactate 12% Lotion (225 g) EXT SCH (10:30)
--- NOTE | 2018-01-25 12:52 | CP.PCM.DIS ---
Provider - Provider Date of Admission: 01/21/18 19:44 Attending physician: Tabby Cooper DO Time Spent in preparation of Discharge (in minutes): 40 Hospital Course - Lab Results Lab Results: Micro Results 01/22/18 13:49 Knee - Right Gram Stain - Final 01/22/18 13:49 Knee - Right Wound Culture - Final No growth. 01/21/18 14:25 Blood Blood Culture - Preliminary NO GROWTH AFTER 3 DAYS 01/21/18 13:55 Blood Blood Culture - Preliminary NO GROWTH AFTER 3 DAYS Most Recent Lab Values WBC 7.4 K/uL (4.8-10.8) 01/25/18 07:12 RBC 3.40 Mil/uL (4.40-5.90) L 01/25/18 07:12 Hgb 10.2 g/dL (12.0-18.0) L 01/25/18 07:12 Hct 29.5 % (35.0-51.0) L 01/25/18 07:12 MCV 86.7 fL (80.0-94.0) 01/25/18 07:12 MCH 30.0 pg (27.0-31.0) 01/25/18 07:12 MCHC 34.6 g/dL (33.0-37.0) 01/25/18 07:12 RDW 13.9 % (11.5-14.5) 01/25/18 07:12 Plt Count 236 K/uL (130-400) 01/25/18 07:12 MPV 7.9 fL (7.2-11.7) 01/25/18 07:12 Neut % (Auto) 83.0 % (50.0-75.0) H 01/25/18 07:12 Lymph % (Auto) 12.2 % (20.0-40.0) L 01/25/18 07:12 [place] % (Auto) 4.7 % (0.0-10.0) 01/25/18 07:12 Eos % (Auto) 0.0 % (0.0-4.0) 01/25/18 07:12 Baso % (Auto) 0.1 % (0.0-2.0) 01/25/18 07:12 Neut # (Auto) 6.1 K/uL (1.8-7.0) 01/25/18 07:12 Lymph # (Auto) 0.9 K/uL (1.0-4.3) L 01/25/18 07:12 [place]nairy # (Auto) 0.3 K/uL (0.0-0.8) 01/25/18 07:12 Eos # (Auto) 0.0 K/uL (0.0-0.7) 01/25/18 07:12 Baso # (Auto) 0.0 K/uL (0.0-0.2) 01/25/18 07:12 Differential Comment 01/22/18 08:45 PT 13.0 SECONDS (9.7-12.2) H 01/22/18 22:46 INR 1.2 01/22/18 22:46 APTT 29 SECONDS (21-34) 01/22/18 22:46 Puncture Site Rra 01/24/18 16:31 pCO2 44 mm/Hg (35-45) 01/24/18 16:31 pO2 62 mm/Hg (80-100) L 01/24/18 16:31 HCO3 33.9 mmol/L (21-28) H 01/24/18 16:31 ABG pH 7.52 (7.35-7.45) H 01/24/18 16:31 ABG Total CO2 37.3 mmol/L (22-28) H 01/24/18 16:31 ABG O2 Saturation 92.3 % (95-98) L 01/24/18 16:31 ABG Base Excess 11.7 mmol/L (-2.0-3.0) H 01/24/18 16:31 ABG Hemoglobin 11.8 g/dL (11.7-17.4) 01/24/18 16:31 ABG Carboxyhemoglobin 1.3 % (0.5-1.5) 01/24/18 16:31 POC ABG HHb (Measured) 7.5 % (0.0-5.0) H 01/24/18 16:31 ABG Methemoglobin 0.8 % (0.0-3.0) 01/24/18 16:31 Von Test Na 01/24/18 16:31 A-a O2 Difference 33.0 mm/Hg 01/24/18 16:31 Respiratory Index 0.5 01/24/18 16:31 Hgb O2 Saturation 90.4 % (95.0-98.0) L 01/24/18 16:31 Liter Flow 0 01/24/18 16:31 FiO2 21.0 % 01/24/18 16:31 Sodium 139 mmol/L (132-148) 01/25/18 07:12 Potassium 3.3 mmol/L (3.6-5.2) L 01/25/18 07:12 Chloride 93 mmol/L (98-107) L 01/25/18 07:12 Carbon Dioxide 34 mmol/L (22-30) H 01/25/18 07:12 Anion Gap 15 (10-20) 01/25/18 07:12 BUN 30 mg/dL (9-20) H 01/25/18 07:12 Creatinine 0.7 mg/dL (0.8-1.5) L 01/25/18 07:12 Est GFR ( Amer) > 60 01/25/18 07:12 Est GFR (Non-Af Amer) > 60 01/25/18 07:12 POC Glucose (mg/dL) 166 mg/dL (65-110) H 01/25/18 06:18 Random Glucose 163 mg/dL (75-110) H 01/25/18 07:12 Hemoglobin A1c 5.7 % (4.2-6.5) 01/22/18 08:45 Lactic Acid 0.7 mmol/L (0.7-2.1) 01/22/18 04:00 Calcium 8.9 mg/dl (8.6-10.4) 01/25/18 07:12 Phosphorus 4.9 mg/dL (2.5-4.5) H 01/25/18 07:12 Magnesium 1.8 mg/dL (1.6-2.3) 01/25/18 07:12 Total Bilirubin 0.4 mg/dL (0.2-1.3) 01/25/18 07:12 AST 26 U/L (17-59) 01/25/18 07:12 ALT 19 U/L (21-72) L D 01/25/18 07:12 Alkaline Phosphatase 53 U/L (38-126) 01/25/18 07:12 Troponin I 0.0550 ng/mL (0.00-0.120) 01/21/18 14:16 NT-Pro-B Natriuret Pep 499 pg/mL (0-900) 01/21/18 14:16 Total Protein 6.9 g/dL (6.3-8.3) 01/25/18 07:12 Albumin 4.1 g/dL (3.5-5.0) 01/25/18 07:12 Globulin 2.8 gm/dL (2.2-3.9) 01/25/18 07:12 Albumin/Globulin Ratio 1.4 (1.0-2.1) 01/25/18 07:12 Free PSA <0.1 ng/mL 01/22/18 08:45 % Free PSA Unable to calculate % (calc) (>25) 01/22/18 08:45 Total PSA 0.2 ng/mL (< or = 4.0) 01/22/18 08:45 Urine Color Yellow (YELLOW) 01/21/18 14:16 Urine Clarity Clear (Clear) 01/21/18 14:16 Urine pH 5.0 (5.0-8.0) 01/21/18 14:16 Ur Specific [place] 1.017 (1.003-1.030) 01/21/18 14:16 Urine Protein Negative mg/dL (NEGATIVE) 01/21/18 14:16 Urine Glucose (UA) Normal mg/dL (Normal) 01/21/18 14:16 Urine Ketones Trace mg/dL (NEGATIVE) 01/21/18 14:16 Urine Blood 2+ (NEGATIVE) H 01/21/18 14:16 Urine Nitrate Positive (NEGATIVE) H 01/21/18 14:16 Urine Bilirubin Negative (NEGATIVE) 01/21/18 14:16 Urine Urobilinogen Normal mg/dL (0.2-1.0) 01/21/18 14:16 Ur Leukocyte Esterase Trace Trevor/uL (Negative) 01/21/18 14:16 Urine WBC (Auto) 7 /hpf (0-5) H 01/21/18 14:16 Urine RBC (Auto) 13 /hpf (0-3) H 01/21/18 14:16 Urine Bacteria Mod (<OCC) H 01/21/18 14:16 Fluid Type Synovial fluid 01/21/18 23:17 Fluid Crystals Negative (NEGATIVE) 01/21/18 23:17 Synovial WBC 27699.0 /mm3 (0.0-150.0) H 01/21/18 23:17 Synovial RBC 3414857.0 /mm3 (0.0-0.0) H 01/21/18 23:17 Synovial Neutrophils 67.0 % (0-0) H 01/21/18 23:17 Synovial Lymphocytes 23.0 % (0-0) H 01/21/18 23:17 Synov Monos/Macrophage 10 % (0-0) H 01/21/18 23:17 Synovial Fluid Comment 01/21/18 23:17 Urine Opiates Screen Positive (NEGATIVE) H 01/22/18 09:22 Urine Methadone Screen Negative (NEGATIVE) 01/22/18 09:22 Ur Barbiturates Screen Negative (NEGATIVE) 01/22/18 09:22 Ur Phencyclidine Scrn Negative (NEGATIVE) 01/22/18 09:22 Ur Amphetamines Screen Negative (NEGATIVE) 01/22/18 09:22 U Benzodiazepines Scrn Positive (NEGATIVE) 01/22/18 09:22 U Oth Cocaine Metabols Negative (NEGATIVE) 01/22/18 09:22 U Cannabinoids Screen Negative (NEGATIVE) 01/22/18 09:22 Alcohol, Quantitative < 10 mg/dl (0-10) 01/22/18 08:45 C.trachomatis RNA (TMA) Not detected (Not Detected) 01/22/18 11:03 N.gonorrhoeae RNA (TMA) Not detected (Not Detected) 01/22/18 11:03 - Hospital Course Hospital Course: This is an 83 yo male with hx of diabetes, insulin dependent, presenting to the ER with chief complaint of dizziness. Pt was brought in by grandson. Pt is georgian speaking only. He is a poor historian. Pt reports dizziness x 1 day. Pt says he was getting up from chair and started feeling "lightheaded," that he was going to pass out. He reported not falling and passing out, but stated that he did fall and hit his head and had full syncopal event. He denies any prodromal sx including chest pain, palpitations, diaphoresis. He says this has never happened before. He denies any weakness, numbness, tingling, chest pain, sob. He cannot recall how much insulin he takes or what type. He says that he forgets to take it sometime. PMH: DM, on insulin PSH: denies Allergies: NKDA FH: breast cancer in family Home meds: insulin Social hx: denies smoking, social drinker. denies drug use. from [facility] Hospital course: During this patient's admission, concern for patient's symptoms were secondary to hyperglycemia or CVA. Glucose on admission was 974, no anion gap. 20 units of regular insulin given in the emergency department with additional dose of 10 units regular insulin. Endocrinology Dr. Webster and Neurology Dr. Dobson were consulted. Imaging ordered for possible CVA. Per neurology, symptoms likely secondary to severe hyperglycemia, no need for further neurological work-up. HgbA1c 14.8. Endocrinology adjusted insulin dosing to optimize metabolic control. Random glucose downtrendin on admission --> 262 --> 103. Leukocytosis, hyperkalemia, hyponatremia, elevated alkaline phosphatase also found on admission, likely secondary to hyperglycemia and subsequent dehydration -- Levels normalizing. Patient's home medications for HTN were restarted monitored for hypotension. Patient left against medical advice. Patient was advised to go to [facility] for improvement of gait due to history of falls. Patient stated he wanted to go home. Discussed with patient the risks of leaving against medical advice such as -falls, bleeding and . Imaging: - Head CT without contrast (01/23/18): Nonspecific white matter changes. Acute infarction may be CT occult within first 24 hours. If a focal deficit persists, consider followup CT or MRI for further evaluation. Sinus disease. - Echocardiogram (01/23/18): Mild septal hypertrophy present. The left atrium is mildly dilated. There is mild pulmonic valvular regurgitation. LVEF is 74% - Head MRA without contrast (01/23/18): Severe asymmetric narrowing of the right M1 segment of the middle cerebral artery and attenuation of the superior sylvian branches with absent flow in the inferior sylvian branches. No evidence of occlusion or narrowing in the intracranial internal carotid arteries, anterior cerebral, left middle cerebral and posterior circulation arteries. - Neck MRA without contrast (01/23/18): No evidence of hemodynamically significant stenosis in the internal carotid arteries. Patent bilateral vertebral arteries. The left vertebral artery is dominant, an anatomic variant. - Chest x-ray (01/23/18): No active pulmonary disease. - Brain MRI without contrast (01/23/18): No acute intracranial abnormality. Moderate chronic microangiopathic changes and moderate age-related global parenchymal volume loss. Chronic bilateral maxillary sinusitis. Please start new medication: 1.) Cozaar 100mg daily Discharge Exam - Head Exam Head Exam: absent: NORMAL INSPECTION (healing cut on the right forehead ) - Eye Exam Eye Exam: EOMI, Normal appearance - ENT Exam ENT Exam: Mucous Membranes Moist - Respiratory Exam Respiratory Exam: Clear to PA & Lateral, NORMAL BREATHING PATTERN - Cardiovascular Exam Cardiovascular Exam: REGULAR RHYTHM, +S1, +S2 - GI/Abdominal Exam GI & Abdominal Exam: Normal Bowel Sounds, Soft. absent: Tenderness - Extremities Exam Extremities exam: normal inspection - Neurological Exam Neurological exam: Alert, Oriented x3 - Psychiatric Exam Psychiatric exam: Normal Affect - Skin Additional comments: bilateral venous stasis LE Discharge Plan - Discharge Medications Prescriptions: Albuterol HFA [Ventolin HFA 90 mcg/actuation (8 g)] 2 puff IH [id number] PRN #1 inhaler PRN Reason: Shortness Of Breath Allopurinol [Zyloprim] 300 mg PO DAILY #30 tab Ammonium Lactate 12% [Lac-Hydrin 12% Lotion (225 g)] 225 g TP BID #1 bottle Carvedilol [Coreg] 6.25 mg PO BID #60 tab Famotidine [Pepcid] 1 tab PO DAILY #30 tab Fluticasone/Vilanterol [Breo Ellipta 100-25 Mcg INH] 1 each IH DAILY #1 blst.w.dev Losartan [Cozaar] 100 mg PO DAILY #30 tab Montelukast [Singulair] 10 mg PO DAILY #30 tab predniSONE [predniSONE Tab] 5 mg PO DAILY #30 tab Tamsulosin [Flomax] 0.4 mg PO ONCE #30 cap - Follow Up Plan Condition: FAIR Disposition: AGAINST MEDICAL ADVICE Instructions: Urinary Tract Infections in Adults, Contusion (DC) Referrals: [facility] [Outside]
[2018-01-25] MEDS: oxyCODONE 20 mg ER Tab (oxyCONTIN) PO SCH (13:03)
[2018-01-28] MEDS ORDERED: Ergocalciferol 50,000 Intl Units Cap PO SCH (10:00)
== END 2018-01-25 17:11 | disposition left against medical advice (07) | DRG 256 ==
LOC: C.ER 13:40 → C.9E 19:44 → C.3T 20:26 → C.6T 01-22 18:36
PROVIDERS: ADMIT Hospitalist; ATTEND Hospitalist
PROC: 0S9C3ZZ Drainage of Right Knee Joint, Percutaneous Approach (ICD-10-PCS; principal; 2018-01-21)
DX: M25.461 Effusion, right knee (principal); E11.65 Type 2 diabetes mellitus with hyperglycemia; E86.0 Dehydration; E87.1 Hypo-osmolality and hyponatremia; E87.5 Hyperkalemia; I13.0 Hypertensive heart and chronic kidney disease with heart failure and stage 1 through stage 4 chronic kidney disease, or unspecified chronic kidney disease; I50.9 Heart failure, unspecified; J43.9 Emphysema, unspecified; N18.9 Chronic kidney disease, unspecified; N39.0 Urinary tract infection, site not specified; I37.1 Nonrheumatic pulmonary valve insufficiency; D69.6 Thrombocytopenia, unspecified; E11.22 Type 2 diabetes mellitus with diabetic chronic kidney disease; S80.01XA Contusion of right knee, initial encounter; M10.9 Gout, unspecified; G47.30 Sleep apnea, unspecified; I87.2 Venous insufficiency (chronic) (peripheral); S00.81XA Abrasion of other part of head, initial encounter; W01.0XXA Fall on same level from slipping, tripping and stumbling without subsequent striking against object, initial encounter; Z80.3 Family history of malignant neoplasm of breast; Z85.51 Personal history of malignant neoplasm of bladder; Z87.891 Personal history of nicotine dependence; Z91.81 History of falling; Z90.79 Acquired absence of other genital organ(s); Z87.01 Personal history of pneumonia (recurrent); Z79.4 Long term (current) use of insulin; G89.4 Chronic pain syndrome; M87.9 Osteonecrosis, unspecified

== ENCOUNTER 2018-01-31 15:10 | Inpatient (IN) | payer MEDICAID ==
[2018-01-31 15:10] VITALS: BMI 30.3
[2018-01-31 16:56] LABS: BASO % 0.5 % (0.0-2.0); EOS # 0.1 K/uL (0.0-0.7); EOS % 0.8 % (0.0-4.0); LYMPH # 2.5 K/uL (1.0-4.3); LYMPH % 37.3 % (20.0-40.0); MEAN CELL VOLUME 90.6 fL (80.0-94.0); MEAN CORPUSCULAR HEMOGLOBIN 30.4 pg (27.0-31.0); MEAN CORPUSCULAR HGB CONC 33.5 g/dL (33.0-37.0); MEAN PLATELET VOLUME 7.1 fL (7.2-11.7); MONO % 14.5 % (0.0-10.0); NEUT # 3.1 K/uL (1.8-7.0); NEUT % 46.9 % (50.0-75.0); NRBC % 0.1 % (0.0-2.0); RBC 3.28 Mil/uL (4.40-5.90); WHITE BLOOD COUNT 6.7 K/uL (4.8-10.8)
[2018-01-31 17:09] LABS: ALB/GLOB RATIO 1.4 (1.0-2.1); ALBUMIN 3.6 g/dL (3.5-5.0); ALT/SGPT 17 U/L (21-72); AST/SGOT 19 U/L (17-59); BLOOD UREA NITROGEN 45 mg/dL (9-20); CALCIUM 9.5 mg/dl (8.6-10.4); GFR AFRICAN-AMERICAN > 60; GFR NON-AFRICAN AMERICAN > 60
[2018-01-31 17:12] LABS: B-TYPE NATRIURETIC PEPTIDE 490 pg/mL (0-900)
--- NOTE | 2018-01-31 17:22 | C.PDOC ---
History Of Present Illness 57 year old male, whose PMHx includes CHF, presents to the ED for evaluation of bilateral lower extremity pain. Patient was evaluated in this ED on 01/21 for complaints of swelling to his legs and knee and underwent admission. Patient chose to sign out against medical advice on 01/25 because his mother was undergoing bypass surgery and he elected to go home. At the time, patient was not considered stable for discharge from physical therapy and pulmonary standpoint. Patient was considered stable from cardiac standpoint. Additionally , patient had noted gait dysfunction and multiple comorbodities. Patient refused subacute rehab and was discharged with prescription for inhalers and nebulizer treatments. After going home, patient reports having trouble walking and swelling to both of his legs (right>left). Patient states he is unable to fully bear weight on the right leg. Patient presents to the ED today for re- admission. He denies fever, chills, shortness of breath, and chest pain. Patient also states that he needs to have bilateral hip surgery. Patient reports history of chronic back pain due to herniated discs and states he attends pain management. Time Seen by Provider: 01/31/18 15:56 Chief Complaint (Nursing): Lower Extremity Problem/Injury History Per: Patient History/Exam Limitations: no limitations Onset/Duration Of Symptoms: Days Current Symptoms Are (Timing): Still Present Additional History Per: Patient Past Medical History Reviewed: Historical Data, Nursing Documentation, Vital Signs Vital Signs: Last Vital Signs Temp 97.9 F 01/31/18 15:18 Pulse 67 01/31/18 15:18 Resp 20 01/31/18 15:18 BP 109/67 01/31/18 15:18 Pulse Ox 98 01/31/18 18:43 - Medical History PMH: Arthritis (L SHOULDER; L KNEE; B/L HIP), Asthma, CHF, COPD, Diabetes, Emphysema, Fractures (LEFT SHOULDER ORIF LEFT ELBOW RIGHT SHOULDER), Gastritis ( FROM MEDS), HTN, Peripheral Edema, Pneumonia, Chronic Kidney Disease, Sleep Apnea (NO C PAP) Surgical History: No Surg Hx - [facility] Procedures DRAINAGE OF RIGHT KNEE JOINT, PERCUTANEOUS APPROACH (01/21/18) Family History: States: Unknown Family Hx - Social History Hx Tobacco Use: No Hx Alcohol Use: No Hx Substance Use: No - Immunization History Hx Tetanus Toxoid Vaccination: Yes Hx Influenza Vaccination: Yes Hx Pneumococcal Vaccination: Yes Review Of Systems Constitutional: Negative for: Fever, Chills Musculoskeletal: Positive for: Leg Pain Skin: Positive for: Other (swelling to bilateral lower extremities, right>left ) Physical Exam - Physical Exam Appears: Non-toxic, No Acute Distress Skin: Normal Color, Warm, Dry, Other (venous stasis pigmentation to bilateral lower extremities ) Head: Atraumatic, Normacephalic Eye(s): bilateral: Normal Inspection Oral Mucosa: Moist Neck: Supple Chest: Symmetrical, No Deformity, No Tenderness Cardiovascular: Rhythm Regular, No Murmur Respiratory: Normal Breath Sounds, No Rales, No Rhonchi, No Wheezing Extremity: No Tenderness (point, to right knee ), Capillary Refill (less than 2 seconds ), Swelling (right knee), Other (pitting edema to bilateral lower extremities, right>left ) Pulses: Left Dorsalis Pedis: Normal, Right Dorsalis Pedis: Normal Neurological/Psych: Oriented x3, Normal Speech, Normal Cognition ED Course And Treatment - Laboratory Results Result Diagrams: 01/31/18 16:47 01/31/18 16:47 Lab Interpretation: No Acute Changes O2 Sat by Pulse Oximetry: 98 (on RA) Pulse Ox Interpretation: Normal Reevaluation Time: 18:42 Reassessment Condition: Unchanged - Physician Consult Information Time Consulting Physician Contacted: 18:42 Physician Contacted: Cristofer Michaels Outcome Of Conversation: Patient to be readmitted for physicaltherapy and referral for rehab. Disposition - Disposition Disposition: HOSPITALIZED Disposition Time: 18:43 Condition: STABLE - POA Present On Arrival: None - Clinical Impression Clinical Impression: Dependent edema, Venous insufficiency (chronic) (peripheral), Chronic pain syndrome - Scribe Statement The provider has reviewed the documentation as recorded by the Scribe (Valerie Michaels) Provider Attestation: All medical record entries made by the Scribe were at my direction and personally dictated by me. I have reviewed the chart and agree that the record accurately reflects my personal performance of the history, physical exam, medical decision making, and the department course for this patient. I have also personally directed, reviewed, and agree with the discharge instructions and disposition.
[2018-01-31] MEDS ORDERED: Albuterol HFA 90 mcg/actuation (8 g) IH PRN (19:39)
[2018-01-31] MEDS ORDERED: Home Med 1 UNIT (Acetaminophen/Oxycodone Hydr [Percocet 10/325 Mg Tab] 1 TAB) PO SCH (20:00)
[2018-01-31] MEDS ORDERED: Oxycodone/Acetaminophen 5/325 mg Tab ONE (20:48)
--- NOTE | 2018-01-31 23:49 | CP.PCM.HP ---
<Derrick Pérez - Last Filed: 02/01/18 03:43> History of Present Illness - History of Present Illness History of Present Illness: This is a 57 yo male, with past medical history of emphysema/COPD, CHF, HTN, DM , presenting to [facility] [place] [facility] by ambulance. He is here because he wants to go through with [facility] placement. He signed out against medical advice recently. He says he had to leave to see his mother who is in the hospital. He wants to stay now. He reports chronic pain. He is very concerned about getting his pain medications including oxycontin and percocet. He has trouble walking from chronic alcoholism. 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 He denies any drinking and drug use today. He reports hip pain and knee pain bilaterally. He denies chest pain, palpitations, dizziness, fevers, chills, shortness of breath. PMD: [facility]: Recently seen by Dr. Mayo and Dr. Rodriguez. Insurance: [employer] medicaid o PMH: emphysema/COPD, CHF, HTN, DM PSH: plate in elbow, repair of torn meniscus left knee Allergies: cefuroxime, cephalexin, clarithromycin, levaquin, avelox FH: GA in family Home meds: metformin, lisinopril, singulair, pepcid, xanax 1 mg po bid , crestor , albuterol, oxycontin, percocet Social hx: former smoker. quit 20 yrs ago. smoker for 20 yrs. hx of alcoholism. hx of heroin iv abuse. Present on Admission - Present on Admission Any Indicators Present on Admission: No History of DVT/PE: No History of Uncontrolled Diabetes: No Urinary Catheter: No Decubitus Ulcer Present: No Review of Systems - Constitutional Constitutional: absent: Chills, Fever - EENT Eyes: absent: Blurred Vision, Change in Vision Ears: absent: Ear Pain, Tinnitus Nose/Mouth/Throat: absent: Sore Throat, Neck Pain - Cardiovascular Cardiovascular: absent: Chest Pain, Chest Pain at Rest, Dyspnea - Respiratory Respiratory: absent: Dyspnea, Hemoptysis - Gastrointestinal Gastrointestinal: absent: Abdominal Pain, Heartburn, Nausea, Vomiting - Genitourinary Genitourinary: absent: Change in Urinary Stream, Difficulty Urinating - Musculoskeletal Musculoskeletal: Arthralgias, Back Pain. absent: Neck Pain, Numbness, Tingling - Integumentary Integumentary: absent: Bleeding Lesions, Changing Lesions - Neurological Neurological: Abnormal Gait, Lack of Coordination, Weakness. absent: Focal Weakness - Psychiatric Psychiatric: absent: Hallucinations, Visual Hallucinations - Hematologic/Lymphatic Hematologic: absent: Easy Bleeding, Easy Bruising Past Patient History - Infectious Disease Hx of Infectious Diseases: None - Tetanus Immunizations Tetanus Immunization: Unknown - Past Medical History & Family History Past Medical History?: Yes Pertinent Family History: GA in family - Past Social History Smoking Status: Former Smoker Chewing Tobacco Use: No Cigar Use: No Alcohol: None Drugs: Denies Home Situation {Lives}: With Family Domestic Violence: Negative - CARDIAC Hx Congestive Heart Failure: Yes Hx Hypertension: Yes Hx Peripheral Edema: Yes - PULMONARY Hx Asthma: Yes Hx Chronic Obstructive Pulmonary Disease (COPD): Yes Hx Emphysema: Yes Hx Pneumonia: Yes Hx Sleep Apnea: Yes (NO C PAP) - NEUROLOGICAL Hx Neurological Disorder: No - HEENT Hx HEENT Problems: Yes - RENAL Hx Chronic Kidney Disease: Yes - ENDOCRINE/METABOLIC Hx Endocrine Disorders: Yes Hx Diabetes Mellitus Type 2: Yes - HEMATOLOGICAL/ONCOLOGICAL Hx Blood Disorders: Yes Hx Cancer: Yes (BLADDER) - INTEGUMENTARY Hx Dermatological Problems: Yes (DISCOLORED LOWER EXTREMITIES ) - MUSCULOSKELETAL/RHEUMATOLOGICAL Hx Arthritis: Yes (L SHOULDER; L KNEE; B/L HIP) Hx Fractures: Yes (LEFT SHOULDER ORIF LEFT ELBOW RIGHT SHOULDER) - GASTROINTESTINAL Hx Gastritis: Yes (FROM MEDS) - GENITOURINARY/GYNECOLOGICAL Hx Genitourinary Disorders: Yes Hx Bladder Cancer: Yes Hx Hematuria: Yes Other/Comment: BLADDER CANCER - PSYCHIATRIC Hx Substance Use: No - SURGICAL HISTORY Hx Surgeries: Yes Hx Open Reduction Internal Fixation: Yes (LEFT SHOULDER LEFT ELBOW REMOVAL HARDWARE) Hx Orthopedic Surgery: Yes (LEFT KNEE) Other/Comment: TURP; HX: CYSTO WITH BLADDER BX. AND FULG. - ANESTHESIA Hx Anesthesia Reactions: (DIFFICULTY TO AROUSE BUT WAS DISCHARGED) Meds Allergies/Adverse Reactions: Allergies Allergy/AdvReac Type Severity Reaction Status Date / Time cefuroxime Allergy RASH Verified 01/31/18 15:24 cephalexin Allergy RASH Verified 01/31/18 15:24 clarithromycin Allergy RASH Verified 01/31/18 15:24 levofloxacin Allergy RASH Verified 01/31/18 15:24 moxifloxacin Allergy RASH Verified 01/31/18 15:24 Physical Exam - Constitutional Appears: Non-toxic, No Acute Distress, Unkempt, Chronically Ill - Head Exam Head Exam: ATRAUMATIC, NORMAL INSPECTION, NORMOCEPHALIC - Eye Exam Eye Exam: EOMI - ENT Exam ENT Exam: Mucous Membranes Moist - Neck Exam Neck exam: Positive for: Full Rom, Normal Inspection - Respiratory Exam Respiratory Exam: NORMAL BREATHING PATTERN. absent: Respiratory Distress - Cardiovascular Exam Cardiovascular Exam: REGULAR RHYTHM, +S1, +S2 - GI/Abdominal Exam GI & Abdominal Exam: Normal Bowel Sounds, Soft. absent: Tenderness - Extremities Exam Extremities exam: Negative for: full ROM, normal inspection Additional comments: PVD in lower limbs - Back Exam Back exam: NORMAL INSPECTION - Neurological Exam Neurological exam: Alert, CN II-XII Intact, Oriented x3 - Psychiatric Exam Psychiatric exam: Flat Affect - Skin Skin Exam: Dry, Intact, Normal Color, Warm Results - Vital Signs Recent Vital Signs: Last Vital Signs Temp 97.9 F 01/31/18 22:45 Pulse 55 L 01/31/18 22:45 Resp 16 01/31/18 22:45 BP 149/63 01/31/18 22:45 Pulse Ox 96 01/31/18 22:45 - Labs Result Diagrams: 01/31/18 16:47 01/31/18 16:47 Labs: Laboratory Results - last 24 hr 01/31/18 01/31/18 16:47 16:47 WBC 6.7 RBC 3.28 L Hgb 10.0 L Hct 29.7 L MCV 90.6 D MCH 30.4 MCHC 33.5 RDW 15.0 H Plt Count 221 MPV 7.1 L Neut % (Auto) 46.9 L Lymph % (Auto) 37.3 Mchenry % (Auto) 14.5 H Eos % (Auto) 0.8 Baso % (Auto) 0.5 Neut # (Auto) 3.1 Lymph # (Auto) 2.5 Mchenry # (Auto) 1.0 H Eos # (Auto) 0.1 Baso # (Auto) 0.0 Sodium 139 Potassium 3.3 L Chloride 99 Carbon Dioxide 26 Anion Gap 18 BUN 45 H Creatinine 0.9 Est GFR ( Amer) > 60 Est GFR (Non-Af Amer) > 60 Random Glucose 101 Calcium 9.5 Total Bilirubin 0.6 AST 19 ALT 17 L Alkaline Phosphatase 69 NT-Pro-B Natriuret Pep 490 Total Protein 6.2 L Albumin 3.6 Globulin 2.6 Albumin/Globulin Ratio 1.4 Assessment & Plan - Assessment and Plan (Free Text) Assessment: This is a 57 yo male with 1. Hx of COPD - pt was previously evaluated by Dr. Shah. Dr Shah said pt can go to [facility] with breo inhaler and nebulizer. - Chest x-ray (01/23/18): No active pulmonary disease. -Initial chest x-ray (01/21/18): No active disease. No acute/significant interval changes. -Supplemental oxygen -Duoneb 3ml INH RQ4 SANDRA -Advair Diskus 250/50 1 puff INH RQ12 -Singulair 10mg PO QHS 2. Contusion of right knee - Dr. Vogel was previously consulted. -Dr. Rodriguez was previously consulted for concern for septic arthritis. - Knee CT (01/21/18): Diffuse soft tissue edema. Small right joint effusion - knee x-ray 3 views: No acute fracture. Right patellar and suprapatellar soft tissue swelling and adjacent suprapatellar effusion. - Right knee synovial fluid aspirated on 01/21/18 on admission -Negative crystals -WBC 10,962; RBC 1,132,220; Neutrophil 67, Lymphocyte 23, Monos/macorphage 10 - Wound culture preliminary -gram stain shows moderate PMN WBCs, no organisms seen - blood culture: negative 3. s/p Mechanical Fall/uses walker - Head CT without contrast (01/21/18): No evidence of acute intracranial hemorrhage mass effect or midline shift. Low-attenuation fluid along the right aspect of the interhemispheric falx with maximum thickness of 7 millimeter may represent hygroma or old subdural collection. Moderate atrophy and moderate presumed chronic microvascular white matter ischemic disease. - PT/OT evaluation for gait dysfunction -was supposed to go to [facility] but left against medical advice 4. Bilateral lower extremity edema secondary to chronic venous insufficiency - CT Angio Chest PE protocol (01/21/18): No pulmonary embolism. No focal consolidation. Multiple chronic bilateral rib fractures. - venous duplex: negative - wound care -can use lac hydrin lotion 5. Hx of chronic pain - Medications verified through patient's pharmacy [facility] ([phone] ) - UDS previously positive for opiates and benzodiazepines - Alcohol quantitative < 10 -repeating urine drug screen and alcohol level -Xanax 1 mg PO BID -Lidocaine Patch transdermal daily -Oxycontin 20mg PO Q12 hours -Percocet 5/325 PO Q4 hours PRN 6. History of bladder CA - Stable at this time -continue flomax .4 mg po daily 7. Hx of heart failure with preserved ejection fraction. - Dr. Isidro Owen previously evaluated the patient and determined he was stable for discharge. - ECHO (01/23/18): Normal study; LVEF 70% - Maintain head of bead 45 degrees - Continue home medications -continue furosemide 40 mg po daily -continue losartan 100 po daily 8. Hx of HTN -continue coreg 3.125 mg po bid -continue losartan 100 mg po daily 9. History of DM - HgbA1c (01/22/18): 5.7 -Continue monitoring with Accuchecks -insulin sliding scale -hypoglycemia protocol -moderate CCD diet 10. Hx of gout -continue allopurinol 300 mg po daily 11. GI/DVT ppx -protonix 40 mg iv daily -heparin 5000 mg sc daily discussed with Dr. Duarte <David Duarte - Last Filed: 02/01/18 07:12> Results - Vital Signs Recent Vital Signs: Last Vital Signs Temp 97.4 F L 02/01/18 00:40 Pulse 54 L 02/01/18 00:40 Resp 20 02/01/18 00:40 BP 125/62 02/01/18 00:40 Pulse Ox 97 02/01/18 00:40 - Labs Result Diagrams: 02/01/18 06:14 01/31/18 16:47 Labs: Laboratory Results - last 24 hr 01/31/18 01/31/18 02/01/18 16:47 16:47 06:14 WBC 6.7 6.8 RBC 3.28 L 3.49 L Hgb 10.0 L 10.5 L Hct 29.7 L 31.2 L MCV 90.6 D 89.5 MCH 30.4 30.0 MCHC 33.5 33.5 RDW 15.0 H 15.1 H Plt Count 221 240 MPV 7.1 L 7.8 Neut % (Auto) 46.9 L 45.7 L Lymph % (Auto) 37.3 39.9 Mchenry % (Auto) 14.5 H 12.7 H Eos % (Auto) 0.8 1.2 Baso % (Auto) 0.5 0.5 Neut # (Auto) 3.1 3.1 Lymph # (Auto) 2.5 2.7 Mchenry # (Auto) 1.0 H 0.9 H Eos # (Auto) 0.1 0.1 Baso # (Auto) 0.0 0.0 APTT Sodium 139 Potassium 3.3 L Chloride 99 Carbon Dioxide 26 Anion Gap 18 BUN 45 H Creatinine 0.9 Est GFR ( Amer) > 60 Est GFR (Non-Af Amer) > 60 Random Glucose 101 Calcium 9.5 Total Bilirubin 0.6 AST 19 ALT 17 L Alkaline Phosphatase 69 NT-Pro-B Natriuret Pep 490 Total Protein 6.2 L Albumin 3.6 Globulin 2.6 Albumin/Globulin Ratio 1.4 02/01/18 06:14 WBC RBC Hgb Hct MCV MCH MCHC RDW Plt Count MPV Neut % (Auto) Lymph % (Auto) Mchenry % (Auto) Eos % (Auto) Baso % (Auto) Neut # (Auto) Lymph # (Auto) Mchenry # (Auto) Eos # (Auto) Baso # (Auto) APTT 26 Sodium Potassium Chloride Carbon Dioxide Anion Gap BUN Creatinine Est GFR ( Amer) Est GFR (Non-Af Amer) Random Glucose Calcium Total Bilirubin AST ALT Alkaline Phosphatase NT-Pro-B Natriuret Pep Total Protein Albumin Globulin Albumin/Globulin Ratio Attending/Attestation - Attestation I have personally seen and examined this patient.: Yes I have fully participated in the care of the patient.: Yes I have reviewed all pertinent clinical information: Yes Notes (Text): 02/01/18 07:08 Patient with h/o ambulatory dysfunction due to B/l AVN of hip, recent right traumatic effusion with worsened dysfunction, h/o gout, htn, bladder cancer, chronic opiod use. Signed out AMA last admission due to acute family emergency, comes back now. Plan PT/OT Social service eval, for subacute rehab Gi/DVT prophylaxis Continue home meds Patient will eventually need to f/u with surgeon for b/l hip replacement See orders for detail.
[2018-02-01] MEDS ORDERED: Dextrose 50% SYRINGE Inj (50 ml) IV PRN (00:30)
[2018-02-01] MEDS ORDERED: Glucagon Recombinant 1 mg Inj IM PRN (00:30)
[2018-02-01 00:41] VITALS: RESP 20
[2018-02-01] MEDS: Oxycodone/Acetaminophen 5/325 mg Tab PO PRN ×6 (00:50→23:40)
[2018-02-01] MEDS: oxyCODONE 20 mg ER Tab (oxyCONTIN) PO SCH ×3 (01:05→21:12)
[2018-02-01 06:22] LABS: BASO % 0.5 % (0.0-2.0); EOS # 0.1 K/uL (0.0-0.7); EOS % 1.2 % (0.0-4.0); HEMOGLOBIN 10.5 g/dL (12.0-18.0); LYMPH # 2.7 K/uL (1.0-4.3); LYMPH % 39.9 % (20.0-40.0); MEAN CELL VOLUME 89.5 fL (80.0-94.0); MEAN CORPUSCULAR HGB CONC 33.5 g/dL (33.0-37.0); MEAN PLATELET VOLUME 7.8 fL (7.2-11.7); MONO # 0.9 K/uL (0.0-0.8); MONO % 12.7 % (0.0-10.0); NEUT # 3.1 K/uL (1.8-7.0); NEUT % 45.7 % (50.0-75.0); RBC 3.49 Mil/uL (4.40-5.90); RED CELL DISTRIBUTION WIDTH 15.1 % (11.5-14.5); WHITE BLOOD COUNT 6.8 K/uL (4.8-10.8)
[2018-02-01] MEDS ORDERED: oxyCODONE 10 mg Immediate Release Tab PO PRN (07:07)
[2018-02-01 07:32] LABS: ALB/GLOB RATIO 1.3 (1.0-2.1); ALBUMIN 3.5 g/dL (3.5-5.0); ALT/SGPT 20 U/L (21-72); AST/SGOT 24 U/L (17-59); BLOOD UREA NITROGEN 37 mg/dL (9-20); CALCIUM 9.3 mg/dl (8.6-10.4); GFR AFRICAN-AMERICAN > 60; GFR NON-AFRICAN AMERICAN > 60
[2018-02-01] MEDS ORDERED: Fluticasone-Salmeterol 100-50mcg Diskus INH SCH (08:00)
[2018-02-01] MEDS: Lidocaine 5% Patch TD SCH (09:18)
[2018-02-01] MEDS: Pantoprazole 40 mg EC Tab PO SCH (09:19)
[2018-02-01] MEDS ORDERED: VILANTEROL IH SCH (10:00)
[2018-02-01] MEDS ORDERED: FLUTICASONE IH SCH (10:00)
[2018-02-01] MEDS ORDERED: oxyCODONE 20 mg ER Tab (oxyCONTIN) PO SCH (10:00)
--- NOTE | 2018-02-01 13:43 | CP.PCM.PN ---
<Tamiko Thurman - Last Filed: 02/01/18 17:05> Subjective - Date & Time of Evaluation Date of Evaluation: 02/01/18 Time of Evaluation: 07:00 - Subjective Subjective: Medicine Progress Note: Patient was seen and examined at bedside in the AM. Patient states he has pain on his hips and is having trouble walking. Patient states he would like to now go to subacute rehab. Patient denies chest pain, shortness of breath, palpitations, nausea or vomiting. Objective - Vital Signs/Intake and Output Vital Signs (last 24 hours): Temp Pulse Resp BP Pulse Ox 98.0 F 51 L 20 141/72 97 02/01/18 08:23 02/01/18 08:23 02/01/18 08:23 02/01/18 09:19 02/01/18 08:23 Intake and Output: 02/01/18 02/01/18 06:59 18:59 Output Total 275 Balance -275 - Medications Medications: Current Medications Albuterol (Ventolin Hfa 90 Mcg/Actuation (8 G)) 2 puff IH RQ6 PRN PRN Reason: Shortness of Breath Allopurinol (Zyloprim) 300 mg PO DAILY [facility] Last Admin: 02/01/18 09:19 Dose: 300 mg Alprazolam (Xanax) 1 mg PO BID PRN PRN Reason: Anxiety Last Admin: 02/01/18 00:50 Dose: 1 mg Dextrose (Dextrose 50% Inj) 0 ml IV STAT PRN; Protocol PRN Reason: Hypoglycemia Protocol Dextrose (Glutose 15) 0 gm PO ONCE PRN; Protocol PRN Reason: Hypoglycemia Protocol Docusate Sodium (Colace) 100 mg PO TID [facility] Last Admin: 02/01/18 13:26 Dose: 100 mg Ergocalciferol (Drisdol 50,000 Intl Units Cap) 1 cap PO QWK [facility] Ferrous Sulfate (Feosol) 325 mg PO DAILY [facility] Last Admin: 02/01/18 09:19 Dose: 325 mg Furosemide (Lasix) 40 mg PO DAILY [facility] Last Admin: 02/01/18 09:19 Dose: 40 mg Glucagon (Glucagen Diagnostic Kit) 0 mg IM STAT PRN; Protocol PRN Reason: Hypoglycemia Protocol Heparin Sodium (Porcine) (Heparin) 5,000 units SC Q8 [facility] Last Admin: 02/01/18 13:27 Dose: 5,000 units Dextrose (Dextrose 5% In Water 1000 Ml) 1,000 mls @ 0 mls/hr IV .Q0M PRN; Protocol; Per Protocol PRN Reason: Hypoglycemia Protocol Lidocaine (Lidoderm) 1 ea TD DAILY [facility] Last Admin: 02/01/18 09:18 Dose: 1 ea Losartan Potassium (Cozaar) 100 mg PO DAILY [facility] Last Admin: 02/01/18 09:19 Dose: 100 mg Montelukast Sodium (Singulair) 10 mg PO HS [facility] Oxycodone HCl (Oxycontin Extended Release Tab) 20 mg PO Q12 [facility] Last Admin: 02/01/18 09:19 Dose: 20 mg Oxycodone/Acetaminophen (Percocet 5/325 Mg Tab) 1 tab PO Q4H PRN PRN Reason: Pain, moderate (4-7) Stop: 02/04/18 07:15 Last Admin: 02/01/18 13:27 Dose: 1 tab Pantoprazole Sodium (Protonix Ec Tab) 40 mg PO DAILY [facility] Last Admin: 02/01/18 09:19 Dose: 40 mg Potassium Chloride (K-Dur 20 Meq Er Tab) 20 meq PO ONCE ONE Stop: 02/01/18 19:40 Prednisone (Prednisone Tab) 5 mg PO DAILY [facility] Last Admin: 02/01/18 09:19 Dose: 5 mg Fluticasone/Salmeterol (Advair Diskus 100/50) 1 puff INH RQ12 [facility] Tamsulosin HCl (Flomax) 0.4 mg PO DAILY [facility] Last Admin: 02/01/18 09:19 Dose: 0.4 mg - Labs Labs: 02/01/18 06:14 02/01/18 06:14 APTT 26 SECONDS (21-34) 02/01/18 06:14 - Constitutional Appears: No Acute Distress, Older Than Stated Age - Head Exam Head Exam: ATRAUMATIC, NORMAL INSPECTION - Eye Exam Eye Exam: EOMI, Normal appearance - ENT Exam ENT Exam: Mucous Membranes Moist - Respiratory Exam Respiratory Exam: Clear to Ausculation Bilateral, NORMAL BREATHING PATTERN. absent: Rhonchi, Wheezes - Cardiovascular Exam Cardiovascular Exam: REGULAR RHYTHM, +S1, +S2 - GI/Abdominal Exam GI & Abdominal Exam: Distended, Soft, Normal Bowel Sounds. absent: Tenderness Additional comments: obese abdomen - Extremities Exam Extremities Exam: Joint Swelling (right knee swelling), Pedal Edema - Neurological Exam Neurological Exam: Alert, Awake, Oriented x3 - Psychiatric Exam Psychiatric exam: Normal Affect, Normal Mood - Skin Skin Exam: absent: Normal Color (bilateral venous stasis LE - from the knee down ) Assessment and Plan - Assessment and Plan (Free Text) Assessment: s/p Contusion of the Right Knee - Knee CT (01/21/18): Diffuse soft tissue edema. Small right joint effusion - knee x-ray 3 views: No acute fracture. Right patellar and suprapatellar soft tissue swelling and adjacent suprapatellar effusion. - Right knee synovial fluid aspirated on 01/21/18 on admission * Negative crystals * WBC 10,962; RBC 1,132,220; Neutrophil 67, Lymphocyte 23, Monos/macorphage 10 - Lactic acid (01/22/18): 0.7 - Wound culture: gram stain shows moderate PMN WBCs, no organisms seen - blood culture: negative s/p Mechanical Fall - Head CT without contrast (01/21/18): No evidence of acute intracranial hemorrhage mass effect or midline shift. Low-attenuation fluid along the right aspect of the interhemispheric falx with maximum thickness of 7 millimeter may represent hygroma or old subdural collection. Moderate atrophy and moderate presumed chronic microvascular white matter ischemic disease. - PT/OT evaluation for gait dysfunction Bilateral lower extremity edema secondary to chronic venous insufficiency - CT Angio Chest PE protocol (01/21/18): No pulmonary embolism. No focal consolidation. Multiple chronic bilateral rib fractures. - venous duplex (01/22/18): negative - Medications * Lac-Hydrin 12% Lotion apply to area BID Chronic pain syndrome - Medications verified through patient's pharmacy [facility] ([phone] ) - UDS positive for opiates and benzodiazepines - Alcohol quantitative < 10 - Medications * Xanax 1mg PO BID * Lidocaine Patch daily * Oxycontin 20mg PO Q12 * Percocet 5/325 PO Q4H PRN History of bladder CA - Stable at this time - Urology Dr. Bellamy consult deferred at this time, patient asymptomatic -- will consult appropriately - Continue home medication * Flomax 0.4mg PO QD History of CHF - ECHO (01/23/18): Normal study; LVEF 70% - Maintain head of bead 45 degrees - Continue home medications * Lasix 40mg PO QD * Cozaar 100mg PO QD History of HTN - Continue home medications * Cozaar 100mg PO QD * Coreg 3.125mg po bid History of DM - HgbA1c (01/22/18): 5.7 - Continue monitoring with Accuchecks - Medications * hold home medication Metformin 500mg bid * ISS and hypoglycemia protocols History of COPD - Continue home medications * Duoneb 3ml INH RQ6 PRN * Breo Ellipta 100/25mcg INH * Singulair 10mg PO QHS * Prednisone 5mg PO QD History of gout - Continue home medication * Allopurinol 300mg PO QD Hypokalemia - Potassium: 3.3 --> 3.7 - Likely secondary to Lasix - Continue to Monitor Prophylaxis - SCDs - Consistent carbohydrate diet - Colace 100mg PO TID - Pantoprazole 40mg po daily - heparin SC q8 - PT/OT evaluation: Recommends [facility] Disposition: Patient is stable for discharge to [facility] pending placement. Case discussed with Dr. Brando Thurman PGY-1 <Cristofer Michaels - Last Filed: 02/02/18 18:00> Objective - Vital Signs/Intake and Output Vital Signs (last 24 hours): Temp Pulse Resp BP Pulse Ox 97.9 F 70 20 142/71 95 02/02/18 08:39 02/02/18 08:39 02/02/18 08:39 02/02/18 10:15 02/02/18 08:39 Intake and Output: 02/02/18 02/02/18 06:59 18:59 Intake Total 400 Output Total 1200 800 Balance -1200 -400 - Medications Medications: Current Medications Albuterol/Ipratropium (Duoneb 3 Mg/0.5 Mg (3 Ml) Ud) 3 ml INH RQ6 PRN PRN Reason: Shortness of Breath Allopurinol (Zyloprim) 300 mg PO DAILY [facility] Last Admin: 02/02/18 10:14 Dose: 300 mg Alprazolam (Xanax) 1 mg PO BID PRN PRN Reason: Anxiety Last Admin: 02/02/18 17:29 Dose: 1 mg Carvedilol (Coreg) 3.125 mg PO BID [facility] Last Admin: 02/02/18 17:30 Dose: 3.125 mg Dextrose (Dextrose 50% Inj) 0 ml IV STAT PRN; Protocol PRN Reason: Hypoglycemia Protocol Dextrose (Glutose 15) 0 gm PO ONCE PRN; Protocol PRN Reason: Hypoglycemia Protocol Docusate Sodium (Colace) 100 mg PO TID [facility] Last Admin: 02/02/18 17:30 Dose: 100 mg Ergocalciferol (Drisdol 50,000 Intl Units Cap) 1 cap PO QWK [facility] Ferrous Sulfate (Feosol) 325 mg PO DAILY [facility] Last Admin: 02/02/18 10:14 Dose: 325 mg Furosemide (Lasix) 40 mg PO DAILY [facility] Last Admin: 02/02/18 10:15 Dose: 40 mg Glucagon (Glucagen Diagnostic Kit) 0 mg IM STAT PRN; Protocol PRN Reason: Hypoglycemia Protocol Heparin Sodium (Porcine) (Heparin) 5,000 units SC Q8 [facility] Last Admin: 02/02/18 14:13 Dose: 5,000 units Dextrose (Dextrose 5% In Water 1000 Ml) 1,000 mls @ 0 mls/hr IV .Q0M PRN; Protocol; Per Protocol PRN Reason: Hypoglycemia Protocol Insulin Human Regular (Novolin R) 0 unit SC ACHS [facility] PRN Reason: Protocol Last Admin: 02/02/18 17:22 Dose: Not Given Lactic Acid (Lac-Hydrin 12% Lotion (225 G)) 0 gm EXT DAILY [facility] Last Admin: 02/02/18 10:17 Dose: 1 applic Lidocaine (Lidoderm) 1 ea TD DAILY [facility] Last Admin: 02/02/18 12:48 Dose: 1 ea Losartan Potassium (Cozaar) 100 mg PO DAILY [facility] Last Admin: 02/02/18 10:13 Dose: 100 mg Montelukast Sodium (Singulair) 10 mg PO HS [facility] Last Admin: 02/01/18 21:12 Dose: 10 mg Oxycodone HCl (Oxycontin Extended Release Tab) 20 mg PO Q12 [facility] Last Admin: 02/02/18 10:14 Dose: 20 mg Oxycodone/Acetaminophen (Percocet 5/325 Mg Tab) 1 tab PO Q4H PRN PRN Reason: Pain, moderate (4-7) Stop: 02/04/18 07:15 Last Admin: 02/02/18 16:01 Dose: 1 tab Pantoprazole Sodium (Protonix Ec Tab) 40 mg PO DAILY [facility] Last Admin: 02/02/18 10:16 Dose: 40 mg Prednisone (Prednisone Tab) 5 mg PO DAILY [facility] Last Admin: 02/02/18 10:17 Dose: 5 mg Fluticasone/Salmeterol (Advair Diskus 100/50) 1 puff INH RQ12 [facility] Tamsulosin HCl (Flomax) 0.4 mg PO DAILY [facility] Last Admin: 02/02/18 10:13 Dose: 0.4 mg - Labs Labs: 02/02/18 07:13 02/02/18 07:13 APTT 26 SECONDS (21-34) 02/01/18 06:14 Attending/Attestation - Attestation I have personally seen and examined this patient.: Yes I have fully participated in the care of the patient.: Yes I have reviewed all pertinent clinical information, including history, physical exam and plan: Yes Notes (Text): 02/02/18 17:59 Patient was seen and examined on 02/01/18 shortly after resident. Cristofer Michaels D.O.
[2018-02-01] MEDS ORDERED: Albuterol-Ipratrop 3 mg / 0.5 (3 ml) UD INH PRN (17:11)
[2018-02-01] MEDS: (Novolin R) Insulin Human Regular 100 units/ml vial SC SCH ×2 (17:44→21:34)
[2018-02-01] MEDS: Ammonium Lactate 12% Lotion (225 g) EXT SCH (17:44)
[2018-02-01] MEDS ORDERED: Potassium Chloride 20 mEq ER Tab PO ONE (19:39)
[2018-02-02] MEDS: Oxycodone/Acetaminophen 5/325 mg Tab PO PRN ×4 (04:16→20:40)
--- NOTE | 2018-02-02 06:50 | CP.PCM.PN ---
<Tamiko Thurman - Last Filed: 02/02/18 10:40> Subjective - Date & Time of Evaluation Date of Evaluation: 02/02/18 Time of Evaluation: 07:00 - Subjective Subjective: Medicine Progress Note: Patient was seen and examined at bedside in the AM. Patient states he continues to have lower extremity pain. Patient denies chest pain, shortness of breath, palpitations, nausea or vomiting. Objective - Vital Signs/Intake and Output Vital Signs (last 24 hours): Temp Pulse Resp BP Pulse Ox 97.8 F 66 20 145/66 97 02/01/18 23:00 02/01/18 23:00 02/01/18 23:00 02/01/18 23:00 02/01/18 23:00 Intake and Output: 02/01/18 02/02/18 18:59 06:59 Output Total 1200 Balance -1200 - Medications Medications: Current Medications Albuterol/Ipratropium (Duoneb 3 Mg/0.5 Mg (3 Ml) Ud) 3 ml INH RQ6 PRN PRN Reason: Shortness of Breath Allopurinol (Zyloprim) 300 mg PO DAILY [facility] Last Admin: 02/01/18 09:19 Dose: 300 mg Alprazolam (Xanax) 1 mg PO BID PRN PRN Reason: Anxiety Last Admin: 02/02/18 02:30 Dose: 1 mg Dextrose (Dextrose 50% Inj) 0 ml IV STAT PRN; Protocol PRN Reason: Hypoglycemia Protocol Dextrose (Glutose 15) 0 gm PO ONCE PRN; Protocol PRN Reason: Hypoglycemia Protocol Docusate Sodium (Colace) 100 mg PO TID [facility] Last Admin: 02/01/18 17:44 Dose: 100 mg Ergocalciferol (Drisdol 50,000 Intl Units Cap) 1 cap PO QWK [facility] Ferrous Sulfate (Feosol) 325 mg PO DAILY [facility] Last Admin: 02/01/18 09:19 Dose: 325 mg Furosemide (Lasix) 40 mg PO DAILY [facility] Last Admin: 02/01/18 09:19 Dose: 40 mg Glucagon (Glucagen Diagnostic Kit) 0 mg IM STAT PRN; Protocol PRN Reason: Hypoglycemia Protocol Heparin Sodium (Porcine) (Heparin) 5,000 units SC Q8 [facility] Last Admin: 02/02/18 06:00 Dose: 5,000 units Dextrose (Dextrose 5% In Water 1000 Ml) 1,000 mls @ 0 mls/hr IV .Q0M PRN; Protocol; Per Protocol PRN Reason: Hypoglycemia Protocol Insulin Human Regular (Novolin R) 0 unit SC ACHS [facility] PRN Reason: Protocol Last Admin: 02/01/18 21:34 Dose: Not Given Lactic Acid (Lac-Hydrin 12% Lotion (225 G)) 0 gm EXT DAILY [facility] Last Admin: 02/01/18 17:44 Dose: 1 applic Lidocaine (Lidoderm) 1 ea TD DAILY [facility] Last Admin: 02/01/18 09:18 Dose: 1 ea Losartan Potassium (Cozaar) 100 mg PO DAILY [facility] Last Admin: 02/01/18 09:19 Dose: 100 mg Montelukast Sodium (Singulair) 10 mg PO HS [facility] Last Admin: 02/01/18 21:12 Dose: 10 mg Oxycodone HCl (Oxycontin Extended Release Tab) 20 mg PO Q12 [facility] Last Admin: 02/01/18 21:12 Dose: 20 mg Oxycodone/Acetaminophen (Percocet 5/325 Mg Tab) 1 tab PO Q4H PRN PRN Reason: Pain, moderate (4-7) Stop: 02/04/18 07:15 Last Admin: 02/02/18 04:16 Dose: 1 tab Pantoprazole Sodium (Protonix Ec Tab) 40 mg PO DAILY [facility] Last Admin: 02/01/18 09:19 Dose: 40 mg Prednisone (Prednisone Tab) 5 mg PO DAILY [facility] Last Admin: 02/01/18 09:19 Dose: 5 mg Fluticasone/Salmeterol (Advair Diskus 100/50) 1 puff INH RQ12 [facility] Tamsulosin HCl (Flomax) 0.4 mg PO DAILY [facility] Last Admin: 02/01/18 09:19 Dose: 0.4 mg - Labs Labs: 02/01/18 06:14 02/01/18 06:14 APTT 26 SECONDS (21-34) 02/01/18 06:14 - Constitutional Appears: No Acute Distress, Older Than Stated Age - Head Exam Head Exam: ATRAUMATIC, NORMAL INSPECTION - Eye Exam Eye Exam: EOMI, Normal appearance - ENT Exam ENT Exam: Mucous Membranes Moist - Respiratory Exam Respiratory Exam: Clear to Ausculation Bilateral, NORMAL BREATHING PATTERN - Cardiovascular Exam Cardiovascular Exam: REGULAR RHYTHM, +S1, +S2 - GI/Abdominal Exam GI & Abdominal Exam: Soft, Normal Bowel Sounds. absent: Tenderness Additional comments: obese abdomen - Extremities Exam Extremities Exam: Joint Swelling (right knee swelling), Normal Inspection, Pedal Edema - Neurological Exam Neurological Exam: Alert, Awake, Oriented x3 - Psychiatric Exam Psychiatric exam: Normal Affect, Normal Mood - Skin Skin Exam: absent: Normal Color (bilateral venous stasis LE - from the knee down ) Assessment and Plan - Assessment and Plan (Free Text) Assessment: s/p Contusion of the Right Knee - Knee CT (01/21/18): Diffuse soft tissue edema. Small right joint effusion - knee x-ray 3 views: No acute fracture. Right patellar and suprapatellar soft tissue swelling and adjacent suprapatellar effusion. - Right knee synovial fluid aspirated on 01/21/18 on admission * Negative crystals * WBC 10,962; RBC 1,132,220; Neutrophil 67, Lymphocyte 23, Monos/macorphage 10 - Lactic acid (01/22/18): 0.7 - Wound culture: gram stain shows moderate PMN WBCs, no organisms seen - blood culture: negative s/p Mechanical Fall - Head CT without contrast (01/21/18): No evidence of acute intracranial hemorrhage mass effect or midline shift. Low-attenuation fluid along the right aspect of the interhemispheric falx with maximum thickness of 7 millimeter may represent hygroma or old subdural collection. Moderate atrophy and moderate presumed chronic microvascular white matter ischemic disease. - PT/OT evaluation for gait dysfunction Bilateral lower extremity edema secondary to chronic venous insufficiency - CT Angio Chest PE protocol (01/21/18): No pulmonary embolism. No focal consolidation. Multiple chronic bilateral rib fractures. - venous duplex (01/22/18): negative Chronic pain syndrome - Medications verified through patient's pharmacy [facility] ([phone] ) - UDS positive for opiates and benzodiazepines - Alcohol quantitative < 10 - Medications * Xanax 1mg PO BID * Lidocaine Patch daily * Oxycontin 20mg PO Q12 * Percocet 5/325 PO Q4H PRN History of bladder CA - Stable at this time - Urology Dr. Bellamy consult deferred at this time, patient asymptomatic -- will consult appropriately - Continue home medication * Flomax 0.4mg PO QD History of CHF --> after review patient does not have history of CHF based off the ECHO - ECHO (01/23/18): Normal study; LVEF 70% - Maintain head of bead 45 degrees - Continue home medications * Lasix 40mg PO QD * Cozaar 100mg PO QD History of Venous Insufficiency - Continue home medications * Lasix 40mg PO QD * Lac-Hydrin 12% Lotion apply to area BID History of HTN - Continue home medications * Cozaar 100mg PO QD * Coreg 3.125mg po bid History of DM - HgbA1c (01/22/18): 5.7 - Continue monitoring with Accuchecks - Medications * hold home medication Metformin 500mg bid * ISS and hypoglycemia protocols History of COPD - Continue home medications * Duoneb 3ml INH RQ6 PRN * Breo Ellipta 100/25mcg INH * Singulair 10mg PO QHS * Prednisone 5mg PO QD History of gout - Continue home medication * Allopurinol 300mg PO QD Hypokalemia - Potassium: 3.3 --> 3.7 - Likely secondary to Lasix - Continue to Monitor Prophylaxis - SCDs - Consistent carbohydrate diet - Colace 100mg PO TID - Pantoprazole 40mg po daily - heparin SC q8 - PT/OT evaluation: Recommends [facility] Disposition: Patient is stable for discharge to [facility] pending placement. Case discussed with Dr. Brando Thurman PGY-1 <Cristofer Michaels - Last Filed: 02/02/18 17:58> Objective - Vital Signs/Intake and Output Vital Signs (last 24 hours): Temp Pulse Resp BP Pulse Ox 97.9 F 70 20 142/71 95 02/02/18 08:39 02/02/18 08:39 02/02/18 08:39 02/02/18 10:15 02/02/18 08:39 Intake and Output: 02/02/18 02/02/18 06:59 18:59 Intake Total 400 Output Total 1200 800 Balance -1200 -400 - Medications Medications: Current Medications Albuterol/Ipratropium (Duoneb 3 Mg/0.5 Mg (3 Ml) Ud) 3 ml INH RQ6 PRN PRN Reason: Shortness of Breath Allopurinol (Zyloprim) 300 mg PO DAILY [facility] Last Admin: 02/02/18 10:14 Dose: 300 mg Alprazolam (Xanax) 1 mg PO BID PRN PRN Reason: Anxiety Last Admin: 02/02/18 17:29 Dose: 1 mg Carvedilol (Coreg) 3.125 mg PO BID [facility] Last Admin: 02/02/18 17:30 Dose: 3.125 mg Dextrose (Dextrose 50% Inj) 0 ml IV STAT PRN; Protocol PRN Reason: Hypoglycemia Protocol Dextrose (Glutose 15) 0 gm PO ONCE PRN; Protocol PRN Reason: Hypoglycemia Protocol Docusate Sodium (Colace) 100 mg PO TID [facility] Last Admin: 02/02/18 17:30 Dose: 100 mg Ergocalciferol (Drisdol 50,000 Intl Units Cap) 1 cap PO QWK [facility] Ferrous Sulfate (Feosol) 325 mg PO DAILY [facility] Last Admin: 02/02/18 10:14 Dose: 325 mg Furosemide (Lasix) 40 mg PO DAILY [facility] Last Admin: 02/02/18 10:15 Dose: 40 mg Glucagon (Glucagen Diagnostic Kit) 0 mg IM STAT PRN; Protocol PRN Reason: Hypoglycemia Protocol Heparin Sodium (Porcine) (Heparin) 5,000 units SC Q8 [facility] Last Admin: 02/02/18 14:13 Dose: 5,000 units Dextrose (Dextrose 5% In Water 1000 Ml) 1,000 mls @ 0 mls/hr IV .Q0M PRN; Protocol; Per Protocol PRN Reason: Hypoglycemia Protocol Insulin Human Regular (Novolin R) 0 unit SC ACHS [facility] PRN Reason: Protocol Last Admin: 02/02/18 17:22 Dose: Not Given Lactic Acid (Lac-Hydrin 12% Lotion (225 G)) 0 gm EXT DAILY [facility] Last Admin: 02/02/18 10:17 Dose: 1 applic Lidocaine (Lidoderm) 1 ea TD DAILY [facility] Last Admin: 02/02/18 12:48 Dose: 1 ea Losartan Potassium (Cozaar) 100 mg PO DAILY [facility] Last Admin: 02/02/18 10:13 Dose: 100 mg Montelukast Sodium (Singulair) 10 mg PO HS [facility] Last Admin: 02/01/18 21:12 Dose: 10 mg Oxycodone HCl (Oxycontin Extended Release Tab) 20 mg PO Q12 [facility] Last Admin: 02/02/18 10:14 Dose: 20 mg Oxycodone/Acetaminophen (Percocet 5/325 Mg Tab) 1 tab PO Q4H PRN PRN Reason: Pain, moderate (4-7) Stop: 02/04/18 07:15 Last Admin: 02/02/18 16:01 Dose: 1 tab Pantoprazole Sodium (Protonix Ec Tab) 40 mg PO DAILY [facility] Last Admin: 02/02/18 10:16 Dose: 40 mg Prednisone (Prednisone Tab) 5 mg PO DAILY [facility] Last Admin: 02/02/18 10:17 Dose: 5 mg Fluticasone/Salmeterol (Advair Diskus 100/50) 1 puff INH RQ12 [facility] Tamsulosin HCl (Flomax) 0.4 mg PO DAILY [facility] Last Admin: 02/02/18 10:13 Dose: 0.4 mg - Labs Labs: 02/02/18 07:13 02/02/18 07:13 APTT 26 SECONDS (21-34) 02/01/18 06:14 Attending/Attestation - Attestation I have personally seen and examined this patient.: Yes I have fully participated in the care of the patient.: Yes I have reviewed all pertinent clinical information, including history, physical exam and plan: Yes Notes (Text): 02/02/18 17:34 Patient was seen and examined at 8:45 AM. Exam, assessment and plan were gone over with the resident. Also on ROS: Has not moved bowels yet Bilateral LE pain Also on Exam: Chronic venous insufficiency changes in bilateral lower legs from tibia to feet : brown discoloration of skin, eschar on anterior lateral lower left tibia. NO signs of cellulitis Pulses are strong and equal, warm, pitting edema R > L has improved, capillary refill is 2 seconds Also please note that on PRIOR notes it was noted that patient has Hx HF however review of 2D Echocardiogram from 01/23/18 indicated that he does NOT have heart failure. Spoke with [employer] Head Lesly and we are awaiting insurance approval for [facility]. Explained to patient that we were limited in the places for [facility] where he could be sent due to his insurance. Cristofer Michaels D.O.
[2018-02-02 07:26] LABS: BASO % 0.3 % (0.0-2.0); EOS # 0.1 K/uL (0.0-0.7); EOS % 1.5 % (0.0-4.0); LYMPH # 3.2 K/uL (1.0-4.3); LYMPH % 35.2 % (20.0-40.0); MEAN CELL VOLUME 89.9 fL (80.0-94.0); MEAN CORPUSCULAR HEMOGLOBIN 30.2 pg (27.0-31.0); MEAN CORPUSCULAR HGB CONC 33.6 g/dL (33.0-37.0); MEAN PLATELET VOLUME 7.5 fL (7.2-11.7); MONO # 0.9 K/uL (0.0-0.8); MONO % 10.3 % (0.0-10.0); NEUT # 4.8 K/uL (1.8-7.0); NEUT % 52.7 % (50.0-75.0); RBC 3.66 Mil/uL (4.40-5.90); WHITE BLOOD COUNT 9.1 K/uL (4.8-10.8)
[2018-02-02] MEDS: (Novolin R) Insulin Human Regular 100 units/ml vial SC SCH ×4 (07:53→21:56)
[2018-02-02 08:27] LABS: ALB/GLOB RATIO 1.4 (1.0-2.1); ALBUMIN 3.9 g/dL (3.5-5.0); ALT/SGPT 14 U/L (21-72); AST/SGOT 25 U/L (17-59); BLOOD UREA NITROGEN 24 mg/dL (9-20); CALCIUM 9.9 mg/dl (8.6-10.4); GFR AFRICAN-AMERICAN > 60; GFR NON-AFRICAN AMERICAN > 60
[2018-02-02] MEDS: oxyCODONE 20 mg ER Tab (oxyCONTIN) PO SCH ×2 (10:14→21:23)
[2018-02-02] MEDS: Pantoprazole 40 mg EC Tab PO SCH (10:16)
[2018-02-02] MEDS: Ammonium Lactate 12% Lotion (225 g) EXT SCH (10:17)
[2018-02-02] MEDS: Lidocaine 5% Patch TD SCH (12:48)
--- NOTE | 2018-02-03 00:05 | CP.PCM.PN ---
<Delores Allen - Last Filed: 02/03/18 00:00> Subjective - Date & Time of Evaluation Date of Evaluation: 02/03/18 Time of Evaluation: 00:01 - Subjective Subjective: Medicine Note for Hospitalist Service - Dr. Cristofer Michaels Patient was seen and examined at bedside. Patient resting comfortably in bed. No acute complaints. Denied fever, chills, headache, chest pain, SOB, abdominal pain, n/v/d/c, or urinary symptoms. Objective - Vital Signs/Intake and Output Vital Signs (last 24 hours): Temp Pulse Resp BP Pulse Ox 97.5 F L 104 H 20 150/73 96 02/02/18 15:00 02/02/18 15:00 02/02/18 15:00 02/02/18 15:00 02/02/18 15:00 Intake and Output: 02/02/18 02/03/18 18:59 06:59 Intake Total 400 240 Output Total 800 400 Balance -400 -160 - Medications Medications: Current Medications Albuterol/Ipratropium (Duoneb 3 Mg/0.5 Mg (3 Ml) Ud) 3 ml INH RQ6 PRN PRN Reason: Shortness of Breath Allopurinol (Zyloprim) 300 mg PO DAILY [facility] Last Admin: 02/02/18 10:14 Dose: 300 mg Alprazolam (Xanax) 1 mg PO BID PRN PRN Reason: Anxiety Last Admin: 02/02/18 17:29 Dose: 1 mg Carvedilol (Coreg) 3.125 mg PO BID [facility] Last Admin: 02/02/18 17:30 Dose: 3.125 mg Dextrose (Dextrose 50% Inj) 0 ml IV STAT PRN; Protocol PRN Reason: Hypoglycemia Protocol Dextrose (Glutose 15) 0 gm PO ONCE PRN; Protocol PRN Reason: Hypoglycemia Protocol Docusate Sodium (Colace) 100 mg PO TID [facility] Last Admin: 02/02/18 17:30 Dose: 100 mg Ergocalciferol (Drisdol 50,000 Intl Units Cap) 1 cap PO QWK [facility] Ferrous Sulfate (Feosol) 325 mg PO DAILY [facility] Last Admin: 02/02/18 10:14 Dose: 325 mg Furosemide (Lasix) 40 mg PO DAILY [facility] Last Admin: 02/02/18 10:15 Dose: 40 mg Glucagon (Glucagen Diagnostic Kit) 0 mg IM STAT PRN; Protocol PRN Reason: Hypoglycemia Protocol Heparin Sodium (Porcine) (Heparin) 5,000 units SC Q8 [facility] Last Admin: 02/02/18 21:23 Dose: 5,000 units Dextrose (Dextrose 5% In Water 1000 Ml) 1,000 mls @ 0 mls/hr IV .Q0M PRN; Protocol; Per Protocol PRN Reason: Hypoglycemia Protocol Insulin Human Regular (Novolin R) 0 unit SC ACHS [facility] PRN Reason: Protocol Last Admin: 02/02/18 21:56 Dose: Not Given Lactic Acid (Lac-Hydrin 12% Lotion (225 G)) 0 gm EXT DAILY [facility] Last Admin: 02/02/18 10:17 Dose: 1 applic Lidocaine (Lidoderm) 1 ea TD DAILY [facility] Last Admin: 02/02/18 12:48 Dose: 1 ea Losartan Potassium (Cozaar) 100 mg PO DAILY [facility] Last Admin: 02/02/18 10:13 Dose: 100 mg Montelukast Sodium (Singulair) 10 mg PO HS [facility] Last Admin: 02/02/18 21:24 Dose: 10 mg Oxycodone HCl (Oxycontin Extended Release Tab) 20 mg PO Q12 [facility] Last Admin: 02/02/18 21:23 Dose: 20 mg Oxycodone/Acetaminophen (Percocet 5/325 Mg Tab) 1 tab PO Q4H PRN PRN Reason: Pain, moderate (4-7) Stop: 02/04/18 07:15 Last Admin: 02/02/18 20:40 Dose: 1 tab Pantoprazole Sodium (Protonix Ec Tab) 40 mg PO DAILY [facility] Last Admin: 02/02/18 10:16 Dose: 40 mg Prednisone (Prednisone Tab) 5 mg PO DAILY [facility] Last Admin: 02/02/18 10:17 Dose: 5 mg Fluticasone/Salmeterol (Advair Diskus 100/50) 1 puff INH RQ12 [facility] Tamsulosin HCl (Flomax) 0.4 mg PO DAILY [facility] Last Admin: 02/02/18 10:13 Dose: 0.4 mg - Labs Labs: 02/02/18 07:13 02/02/18 07:13 APTT 26 SECONDS (21-34) 02/01/18 06:14 - Additional Findings Additional findings: - Constitutional Appears: No Acute Distress, Older Than Stated Age - Head Exam Head Exam: ATRAUMATIC, NORMAL INSPECTION - Eye Exam Eye Exam: EOMI, Normal appearance - ENT Exam ENT Exam: Mucous Membranes Moist - Respiratory Exam Respiratory Exam: Clear to Ausculation Bilateral, NORMAL BREATHING PATTERN - Cardiovascular Exam Cardiovascular Exam: REGULAR RHYTHM, +S1, +S2 - GI/Abdominal Exam GI & Abdominal Exam: Soft, Normal Bowel Sounds. absent: Tenderness Additional comments: obese abdomen - Extremities Exam Extremities Exam: Joint Swelling (right knee swelling), Normal Inspection, Pedal Edema - Neurological Exam Neurological Exam: Alert, Awake, Oriented x3 - Psychiatric Exam Psychiatric exam: Normal Affect, Normal Mood - Skin Skin Exam: absent: Normal Color (bilateral venous stasis LE - from the knee down ) Assessment and Plan - Assessment and Plan (Free Text) Plan: s/p Contusion of the Right Knee - Knee CT (01/21/18): Diffuse soft tissue edema. Small right joint effusion - knee x-ray 3 views: No acute fracture. Right patellar and suprapatellar soft tissue swelling and adjacent suprapatellar effusion. - Right knee synovial fluid aspirated on 01/21/18 on admission * Negative crystals * WBC 10,962; RBC 1,132,220; Neutrophil 67, Lymphocyte 23, Monos/macorphage 10 - Lactic acid (01/22/18): 0.7 - Wound culture: gram stain shows moderate PMN WBCs, no organisms seen - blood culture: negative s/p Mechanical Fall - Head CT without contrast (01/21/18): No evidence of acute intracranial hemorrhage mass effect or midline shift. Low-attenuation fluid along the right aspect of the interhemispheric falx with maximum thickness of 7 millimeter may represent hygroma or old subdural collection. Moderate atrophy and moderate presumed chronic microvascular white matter ischemic disease. - PT/OT evaluation for gait dysfunction Bilateral lower extremity edema secondary to chronic venous insufficiency - CT Angio Chest PE protocol (01/21/18): No pulmonary embolism. No focal consolidation. Multiple chronic bilateral rib fractures. - venous duplex (01/22/18): negative Chronic pain syndrome - Medications verified through patient's pharmacy [facility] ([phone] ) - UDS positive for opiates and benzodiazepines - Alcohol quantitative < 10 - Medications * Xanax 1mg PO BID * Lidocaine Patch daily * Oxycontin 20mg PO Q12 * Percocet 5/325 PO Q4H PRN History of bladder CA - Stable at this time - Urology Dr. Bellamy consult deferred at this time, patient asymptomatic -- will consult appropriately - Continue home medication * Flomax 0.4mg PO QD History of CHF --> after review patient does not have history of CHF based off the ECHO - ECHO (01/23/18): Normal study; LVEF 70% - Maintain head of bead 45 degrees - Continue home medications * Lasix 40mg PO QD * Cozaar 100mg PO QD History of Venous Insufficiency - Continue home medications * Lasix 40mg PO QD * Lac-Hydrin 12% Lotion apply to area BID History of HTN - Continue home medications * Cozaar 100mg PO QD * Coreg 3.125mg po bid History of DM - HgbA1c (01/22/18): 5.7 - Continue monitoring with Accuchecks - Medications * hold home medication Metformin 500mg bid * ISS and hypoglycemia protocols History of COPD - Continue home medications * Duoneb 3ml INH RQ6 PRN * Breo Ellipta 100/25mcg INH * Singulair 10mg PO QHS * Prednisone 5mg PO QD History of gout - Continue home medication * Allopurinol 300mg PO QD Hypokalemia - Potassium: 3.3 --> 3.7 - Likely secondary to Lasix - Continue to Monitor Prophylaxis - SCDs - Consistent carbohydrate diet - Colace 100mg PO TID - Pantoprazole 40mg po daily - heparin SC q8 - PT/OT evaluation: Recommends [facility] Disposition: Patient is stable for discharge to [facility] pending placement. DW Delores Edwards DO, PGY-1 <Cristofer Michaels J - Last Filed: 02/03/18 17:23> Objective - Vital Signs/Intake and Output Vital Signs (last 24 hours): Temp Pulse Resp BP Pulse Ox 97.9 F 82 20 112/72 97 02/03/18 16:00 02/03/18 16:00 02/03/18 16:00 02/03/18 16:00 02/03/18 16:00 Intake and Output: 02/03/18 02/03/18 06:59 18:59 Intake Total 440 320 Output Total 500 Balance -60 320 - Medications Medications: Current Medications Albuterol/Ipratropium (Duoneb 3 Mg/0.5 Mg (3 Ml) Ud) 3 ml INH RQ6 PRN PRN Reason: Shortness of Breath Allopurinol (Zyloprim) 300 mg PO DAILY [facility] Last Admin: 02/03/18 09:44 Dose: 300 mg Alprazolam (Xanax) 1 mg PO BID PRN PRN Reason: Anxiety Last Admin: 02/03/18 13:15 Dose: 1 mg Carvedilol (Coreg) 3.125 mg PO BID [facility] Last Admin: 02/03/18 09:44 Dose: 3.125 mg Dextrose (Dextrose 50% Inj) 0 ml IV STAT PRN; Protocol PRN Reason: Hypoglycemia Protocol Dextrose (Glutose 15) 0 gm PO ONCE PRN; Protocol PRN Reason: Hypoglycemia Protocol Docusate Sodium (Colace) 100 mg PO TID [facility] Last Admin: 02/03/18 15:04 Dose: Not Given Ergocalciferol (Drisdol 50,000 Intl Units Cap) 1 cap PO QWK [facility] Ferrous Sulfate (Feosol) 325 mg PO DAILY [facility] Last Admin: 02/03/18 09:44 Dose: 325 mg Furosemide (Lasix) 40 mg PO DAILY [facility] Last Admin: 02/03/18 09:43 Dose: 40 mg Glucagon (Glucagen Diagnostic Kit) 0 mg IM STAT PRN; Protocol PRN Reason: Hypoglycemia Protocol Heparin Sodium (Porcine) (Heparin) 5,000 units SC Q8 [facility] Last Admin: 02/03/18 13:15 Dose: 5,000 units Dextrose (Dextrose 5% In Water 1000 Ml) 1,000 mls @ 0 mls/hr IV .Q0M PRN; Protocol; Per Protocol PRN Reason: Hypoglycemia Protocol Insulin Human Regular (Novolin R) 0 unit SC ACHS [facility] PRN Reason: Protocol Last Admin: 02/03/18 16:00 Dose: Not Given Lactic Acid (Lac-Hydrin 12% Lotion (225 G)) 0 gm EXT DAILY [facility] Last Admin: 02/03/18 09:45 Dose: 1 applic Lidocaine (Lidoderm) 1 ea TD DAILY [facility] Last Admin: 02/03/18 09:45 Dose: 1 ea Losartan Potassium (Cozaar) 100 mg PO DAILY [facility] Last Admin: 02/03/18 09:44 Dose: 100 mg Montelukast Sodium (Singulair) 10 mg PO HS [facility] Last Admin: 02/02/18 21:24 Dose: 10 mg Oxycodone HCl (Oxycontin Extended Release Tab) 20 mg PO Q12 [facility] Last Admin: 02/03/18 09:42 Dose: 20 mg Oxycodone/Acetaminophen (Percocet 5/325 Mg Tab) 1 tab PO Q4H PRN PRN Reason: Pain, moderate (4-7) Stop: 02/04/18 07:15 Last Admin: 02/03/18 15:59 Dose: 1 tab Pantoprazole Sodium (Protonix Ec Tab) 40 mg PO DAILY [facility] Last Admin: 02/03/18 09:44 Dose: 40 mg Prednisone (Prednisone Tab) 5 mg PO DAILY [facility] Last Admin: 02/03/18 09:44 Dose: 5 mg Fluticasone/Salmeterol (Advair Diskus 100/50) 1 puff INH RQ12 [facility] Tamsulosin HCl (Flomax) 0.4 mg PO DAILY [facility] Last Admin: 02/03/18 09:44 Dose: 0.4 mg - Labs Labs: 02/03/18 06:36 02/03/18 06:36 APTT 26 SECONDS (21-34) 02/01/18 06:14 Attending/Attestation - Attestation I have personally seen and examined this patient.: Yes I have fully participated in the care of the patient.: Yes I have reviewed all pertinent clinical information, including history, physical exam and plan: Yes Notes (Text): 02/03/18 17:18 Patient was seen and examined at 8 AM 02/03/18. Also on ROS: Has not moved bowels yet: patient states that he feels like he has to go but is afraid to get up to go the bathroom for fear of fall Stiffness in the back, hip, and the knees: wants his pain medication increased Bilateral LE pain Also on Exam: Chronic venous insufficiency changes in bilateral lower legs from tibia to feet : brown discoloration of skin, eschar on anterior lateral lower left tibia. NO signs of cellulitis Pulses are strong and equal, warm, pitting edema R > L has improved, capillary refill is 2 seconds Explained to patient that he must use bedside nurse call button to aske for assistance to go to the bathroom and for him not to hold in his stool. He was also provided with 2 eight ounces of prune juice by me and I asked him to drink one with breakfast and one with dinner tonight. Explained to patient that I did not feel like we needed to increase his pain medication doses and that we would not be doing so as he did not appear to be any distress whatsoever. He understands that he will have to follow up with his Pain Management Physician as an outpatient once discharged from [facility]. Spoke with [employer] Operator Lesly 02/02/18 and we are awaiting insurance approval for [facility]. Explained to patient again that we were limited in the places for [facility] where he could be sent due to his insurance. Cristofer Michaels D.O.
[2018-02-03] MEDS: Oxycodone/Acetaminophen 5/325 mg Tab PO PRN ×5 (00:59→20:24)
[2018-02-03 06:40] LABS: BASO % 0.3 % (0.0-2.0); EOS # 0.1 K/uL (0.0-0.7); EOS % 1.3 % (0.0-4.0); HEMOGLOBIN 11.2 g/dL (12.0-18.0); LYMPH # 3.5 K/uL (1.0-4.3); LYMPH % 38.4 % (20.0-40.0); MEAN CELL VOLUME 89.4 fL (80.0-94.0); MEAN CORPUSCULAR HEMOGLOBIN 30.3 pg (27.0-31.0); MEAN CORPUSCULAR HGB CONC 33.9 g/dL (33.0-37.0); MEAN PLATELET VOLUME 7.3 fL (7.2-11.7); MONO # 0.8 K/uL (0.0-0.8); MONO % 8.6 % (0.0-10.0); NEUT # 4.7 K/uL (1.8-7.0); NEUT % 51.4 % (50.0-75.0); RBC 3.71 Mil/uL (4.40-5.90); RED CELL DISTRIBUTION WIDTH 14.9 % (11.5-14.5); WHITE BLOOD COUNT 9.1 K/uL (4.8-10.8)
[2018-02-03 07:04] LABS: ALB/GLOB RATIO 1.2 (1.0-2.1); ALBUMIN 3.8 g/dL (3.5-5.0); ALT/SGPT 14 U/L (21-72); AST/SGOT 19 U/L (17-59); BLOOD UREA NITROGEN 20 mg/dL (9-20); CALCIUM 9.8 mg/dl (8.6-10.4); GFR AFRICAN-AMERICAN > 60; GFR NON-AFRICAN AMERICAN > 60
[2018-02-03] MEDS ORDERED: Potassium Chloride 20 mEq ER Tab PO ONE ×2 (07:33→12:00)
[2018-02-03] MEDS: (Novolin R) Insulin Human Regular 100 units/ml vial SC SCH ×4 (07:45→21:37)
[2018-02-03] MEDS: Magnesium Sulfate 1 gm in D5W 1 GM/100 ML BAG IVPB SCH ×2 (08:35→11:55)
[2018-02-03] MEDS: oxyCODONE 20 mg ER Tab (oxyCONTIN) PO SCH ×2 (09:42→21:55)
[2018-02-03] MEDS: Pantoprazole 40 mg EC Tab PO SCH (09:44)
[2018-02-03] MEDS: Ammonium Lactate 12% Lotion (225 g) EXT SCH (09:45)
[2018-02-03] MEDS: Lidocaine 5% Patch TD SCH (09:45)
[2018-02-03] MEDS ORDERED: Magnesium Sulfate 1 gm in D5W 1 GM/100 ML BAG IVPB SCH (12:00)
[2018-02-04] MEDS: Oxycodone/Acetaminophen 5/325 mg Tab PO PRN ×5 (00:50→19:58)
--- NOTE | 2018-02-04 06:08 | CP.PCM.PN ---
<Rafael Caruso - Last Filed: 02/04/18 06:05> Subjective - Date & Time of Evaluation Date of Evaluation: 02/04/18 Time of Evaluation: 06:05 - Subjective Subjective: Patient seen and examined at bedside. Doing well with no new complaints at this time. Tolerating diet. No chest pain, SOB, fever, chills, nausea, vomiting. Objective - Vital Signs/Intake and Output Vital Signs (last 24 hours): Temp Pulse Resp BP Pulse Ox 97.6 F 68 20 126/74 96 02/03/18 23:00 02/03/18 23:00 02/03/18 23:00 02/03/18 23:00 02/03/18 23:00 Intake and Output: 02/03/18 02/04/18 18:59 06:59 Intake Total 320 Balance 320 - Medications Medications: Current Medications Albuterol/Ipratropium (Duoneb 3 Mg/0.5 Mg (3 Ml) Ud) 3 ml INH RQ6 PRN PRN Reason: Shortness of Breath Allopurinol (Zyloprim) 300 mg PO DAILY [facility] Last Admin: 02/03/18 09:44 Dose: 300 mg Alprazolam (Xanax) 1 mg PO BID PRN PRN Reason: Anxiety Last Admin: 02/03/18 23:53 Dose: 1 mg Carvedilol (Coreg) 3.125 mg PO BID [facility] Last Admin: 02/03/18 17:50 Dose: 3.125 mg Dextrose (Dextrose 50% Inj) 0 ml IV STAT PRN; Protocol PRN Reason: Hypoglycemia Protocol Dextrose (Glutose 15) 0 gm PO ONCE PRN; Protocol PRN Reason: Hypoglycemia Protocol Docusate Sodium (Colace) 100 mg PO TID [facility] Last Admin: 02/03/18 17:50 Dose: 100 mg Ergocalciferol (Drisdol 50,000 Intl Units Cap) 1 cap PO QWK [facility] Ferrous Sulfate (Feosol) 325 mg PO DAILY [facility] Last Admin: 02/03/18 09:44 Dose: 325 mg Furosemide (Lasix) 40 mg PO DAILY [facility] Last Admin: 02/03/18 09:43 Dose: 40 mg Glucagon (Glucagen Diagnostic Kit) 0 mg IM STAT PRN; Protocol PRN Reason: Hypoglycemia Protocol Insulin Human Regular (Novolin R) 0 unit SC ACHS [facility] PRN Reason: Protocol Last Admin: 02/03/18 21:37 Dose: Not Given Lactic Acid (Lac-Hydrin 12% Lotion (225 G)) 0 gm EXT DAILY [facility] Last Admin: 02/03/18 09:45 Dose: 1 applic Lidocaine (Lidoderm) 1 ea TD DAILY [facility] Last Admin: 02/03/18 09:45 Dose: 1 ea Losartan Potassium (Cozaar) 100 mg PO DAILY [facility] Last Admin: 02/03/18 09:44 Dose: 100 mg Montelukast Sodium (Singulair) 10 mg PO HS [facility] Last Admin: 02/03/18 21:56 Dose: 10 mg Oxycodone HCl (Oxycontin Extended Release Tab) 20 mg PO Q12 [facility] Last Admin: 02/03/18 21:55 Dose: 20 mg Oxycodone/Acetaminophen (Percocet 5/325 Mg Tab) 1 tab PO Q4H PRN PRN Reason: Pain, moderate (4-7) Stop: 02/04/18 07:15 Last Admin: 02/04/18 05:10 Dose: 1 tab Pantoprazole Sodium (Protonix Ec Tab) 40 mg PO DAILY [facility] Last Admin: 02/03/18 09:44 Dose: 40 mg Prednisone (Prednisone Tab) 5 mg PO DAILY [facility] Last Admin: 02/03/18 09:44 Dose: 5 mg Fluticasone/Salmeterol (Advair Diskus 100/50) 1 puff INH RQ12 [facility] Tamsulosin HCl (Flomax) 0.4 mg PO DAILY [facility] Last Admin: 02/03/18 09:44 Dose: 0.4 mg - Labs Labs: 02/03/18 06:36 02/03/18 06:36 APTT 26 SECONDS (21-34) 02/01/18 06:14 - Additional Findings Additional findings: - Constitutional Appears: No Acute Distress, Older Than Stated Age - Head Exam Head Exam: ATRAUMATIC, NORMAL INSPECTION - Eye Exam Eye Exam: EOMI, Normal appearance - ENT Exam ENT Exam: Mucous Membranes Moist - Respiratory Exam Respiratory Exam: Clear to Ausculation Bilateral, NORMAL BREATHING PATTERN - Cardiovascular Exam Cardiovascular Exam: REGULAR RHYTHM, +S1, +S2 - GI/Abdominal Exam GI & Abdominal Exam: Soft, Normal Bowel Sounds. absent: Tenderness Additional comments: obese abdomen - Extremities Exam Extremities Exam: Joint Swelling (right knee swelling), Normal Inspection, Pedal Edema - Neurological Exam Neurological Exam: Alert, Awake, Oriented x3 - Psychiatric Exam Psychiatric exam: Normal Affect, Normal Mood - Skin Skin Exam: absent: Normal Color (bilateral venous stasis LE - from the knee down ) Assessment and Plan - Assessment and Plan (Free Text) Assessment: Contusion of the Right Knee - Knee CT (01/21/18): Diffuse soft tissue edema. Small right joint effusion - knee x-ray 3 views: No acute fracture. Right patellar and suprapatellar soft tissue swelling and adjacent suprapatellar effusion. - Right knee synovial fluid aspirated on 01/21/18 on admission * Negative crystals * WBC 10,962; RBC 1,132,220; Neutrophil 67, Lymphocyte 23, Monos/macorphage 10 - Lactic acid (01/22/18): 0.7 - Wound culture: gram stain shows moderate PMN WBCs, no organisms seen - blood culture: negative Mechanical Fall - Head CT without contrast (01/21/18): No evidence of acute intracranial hemorrhage mass effect or midline shift. Low-attenuation fluid along the right aspect of the interhemispheric falx with maximum thickness of 7 millimeter may represent hygroma or old subdural collection. Moderate atrophy and moderate presumed chronic microvascular white matter ischemic disease. - PT/OT evaluation for gait dysfunction Bilateral lower extremity edema secondary to chronic venous insufficiency - CT Angio Chest PE protocol (01/21/18): No pulmonary embolism. No focal consolidation. Multiple chronic bilateral rib fractures. - venous duplex (01/22/18): negative Chronic pain syndrome - Medications verified through patient's pharmacy [facility] ([phone] ) - UDS positive for opiates and benzodiazepines - Alcohol quantitative < 10 - Medications * Xanax 1mg PO BID * Lidocaine Patch daily * Oxycontin 20mg PO Q12 * Percocet 5/325 PO Q4H PRN History of bladder CA - Stable at this time - Urology Dr. Bellamy consult deferred at this time, patient asymptomatic -- will consult appropriately - Continue home medication * Flomax 0.4mg PO QD History of CHF --> after review patient does not have history of CHF based off the ECHO - ECHO (01/23/18): Normal study; LVEF 70% - Maintain head of bead 45 degrees - Continue home medications * Lasix 40mg PO QD * Cozaar 100mg PO QD History of Venous Insufficiency - Continue home medications * Lasix 40mg PO QD * Lac-Hydrin 12% Lotion apply to area BID History of HTN - Continue home medications * Cozaar 100mg PO QD * Coreg 3.125mg po bid History of DM - HgbA1c (01/22/18): 5.7 - Continue monitoring with Accuchecks - Medications * hold home medication Metformin 500mg bid * ISS and hypoglycemia protocols History of COPD - Continue home medications * Duoneb 3ml INH RQ6 PRN * Breo Ellipta 100/25mcg INH * Singulair 10mg PO QHS * Prednisone 5mg PO QD History of gout - Continue home medication * Allopurinol 300mg PO QD Hypokalemia - Potassium: 3.3 --> 3.7 - Likely secondary to Lasix - Continue to Monitor Prophylaxis - SCDs - Consistent carbohydrate diet - Colace 100mg PO TID - Pantoprazole 40mg po daily - heparin SC q8 - PT/OT evaluation: Recommends [facility] Disposition: Patient is stable for discharge to [facility] pending placement. <Cristofer Michaels - Last Filed: 02/04/18 14:15> Objective - Vital Signs/Intake and Output Vital Signs (last 24 hours): Temp Pulse Resp BP Pulse Ox 98.1 F 67 20 143/72 96 02/04/18 07:00 02/04/18 07:00 02/04/18 07:00 02/04/18 09:19 02/04/18 07:00 Intake and Output: 02/04/18 02/04/18 06:59 18:59 Intake Total 210 Output Total 800 Balance -590 - Medications Medications: Current Medications Albuterol/Ipratropium (Duoneb 3 Mg/0.5 Mg (3 Ml) Ud) 3 ml INH RQ6 PRN PRN Reason: Shortness of Breath Allopurinol (Zyloprim) 300 mg PO DAILY [facility] Last Admin: 02/04/18 09:19 Dose: 300 mg Alprazolam (Xanax) 1 mg PO BID PRN PRN Reason: Anxiety Last Admin: 02/04/18 10:44 Dose: 1 mg Carvedilol (Coreg) 3.125 mg PO BID [facility] Last Admin: 02/04/18 09:18 Dose: 3.125 mg Dextrose (Dextrose 50% Inj) 0 ml IV STAT PRN; Protocol PRN Reason: Hypoglycemia Protocol Dextrose (Glutose 15) 0 gm PO ONCE PRN; Protocol PRN Reason: Hypoglycemia Protocol Docusate Sodium (Colace) 100 mg PO TID [facility] Last Admin: 02/04/18 13:35 Dose: 100 mg Ergocalciferol (Drisdol 50,000 Intl Units Cap) 1 cap PO QWK [facility] Ferrous Sulfate (Feosol) 325 mg PO DAILY [facility] Last Admin: 02/04/18 09:18 Dose: 325 mg Furosemide (Lasix) 40 mg PO DAILY [facility] Last Admin: 02/04/18 09:19 Dose: 40 mg Glucagon (Glucagen Diagnostic Kit) 0 mg IM STAT PRN; Protocol PRN Reason: Hypoglycemia Protocol Insulin Human Regular (Novolin R) 0 unit SC ACHS [facility] PRN Reason: Protocol Last Admin: 02/04/18 11:49 Dose: Not Given Lactic Acid (Lac-Hydrin 12% Lotion (225 G)) 0 gm EXT DAILY [facility] Last Admin: 02/04/18 11:00 Dose: 1 applic Lidocaine (Lidoderm) 1 ea TD DAILY [facility] Last Admin: 02/04/18 09:22 Dose: 1 ea Losartan Potassium (Cozaar) 100 mg PO DAILY [facility] Last Admin: 02/04/18 09:18 Dose: 100 mg Montelukast Sodium (Singulair) 10 mg PO HS [facility] Last Admin: 02/03/18 21:56 Dose: 10 mg Oxycodone HCl (Oxycontin Extended Release Tab) 20 mg PO Q12 [facility] Last Admin: 02/04/18 09:15 Dose: 20 mg Oxycodone/Acetaminophen (Percocet 5/325 Mg Tab) 1 tab PO Q4H PRN PRN Reason: Pain, moderate (4-7) Stop: 02/07/18 10:53 Last Admin: 02/04/18 11:34 Dose: 1 tab Pantoprazole Sodium (Protonix Ec Tab) 40 mg PO DAILY [facility] Last Admin: 02/04/18 09:18 Dose: 40 mg Prednisone (Prednisone Tab) 5 mg PO DAILY [facility] Last Admin: 02/04/18 09:17 Dose: 5 mg Fluticasone/Salmeterol (Advair Diskus 100/50) 1 puff INH RQ12 [facility] Tamsulosin HCl (Flomax) 0.4 mg PO DAILY [facility] Last Admin: 02/04/18 13:35 Dose: 0.4 mg - Labs Labs: 02/04/18 07:28 02/04/18 07:28 APTT 26 SECONDS (21-34) 02/01/18 06:14 Attending/Attestation - Attestation I have personally seen and examined this patient.: Yes I have fully participated in the care of the patient.: Yes I have reviewed all pertinent clinical information, including history, physical exam and plan: Yes Notes (Text): 02/04/18 14:13 Patient was seen and examined at 8 AM 02/04/18. Also on ROS: He moved his bowels yesterday after my exam: states that the prune juice has helped him Stiffness in the back, hip, and the knees: did not ask for increase in pain medication today (he looked very comfortable and in no distress) Bilateral LE pain Also on Exam: Chronic venous insufficiency changes in bilateral lower legs from tibia to feet : brown discoloration of skin, eschar on anterior lateral lower left tibia. NO signs of cellulitis Pulses are strong and equal, warm, pitting edema R > L has improved, capillary refill is 2 seconds Spoke with [employer] 02/02/18 and we are awaiting insurance approval for [facility]. Explained to patient again that we were limited in the places for [facility] where he could be sent due to his insurance. Cristofer Michaels D.O.
[2018-02-04 07:43] LABS: BASO # 0.1 K/uL (0.0-0.2); BASO % 0.5 % (0.0-2.0); EOS # 0.1 K/uL (0.0-0.7); EOS % 0.9 % (0.0-4.0); HEMOGLOBIN 11.2 g/dL (12.0-18.0); LYMPH # 3.4 K/uL (1.0-4.3); LYMPH % 34.1 % (20.0-40.0); MEAN CELL VOLUME 90.3 fL (80.0-94.0); MEAN CORPUSCULAR HEMOGLOBIN 30.1 pg (27.0-31.0); MEAN CORPUSCULAR HGB CONC 33.3 g/dL (33.0-37.0); MEAN PLATELET VOLUME 7.8 fL (7.2-11.7); MONO # 0.7 K/uL (0.0-0.8); MONO % 6.7 % (0.0-10.0); NEUT # 5.8 K/uL (1.8-7.0); NEUT % 57.8 % (50.0-75.0); RBC 3.74 Mil/uL (4.40-5.90)
[2018-02-04 08:05] LABS: ALB/GLOB RATIO 1.3 (1.0-2.1); ALT/SGPT 15 U/L (21-72); AST/SGOT 25 U/L (17-59); BLOOD UREA NITROGEN 24 mg/dL (9-20); CALCIUM 9.7 mg/dl (8.6-10.4); GFR AFRICAN-AMERICAN > 60; GFR NON-AFRICAN AMERICAN > 60
[2018-02-04] MEDS: (Novolin R) Insulin Human Regular 100 units/ml vial SC SCH ×4 (08:22→21:43)
[2018-02-04] MEDS: oxyCODONE 20 mg ER Tab (oxyCONTIN) PO SCH ×2 (09:15→21:33)
[2018-02-04] MEDS: Pantoprazole 40 mg EC Tab PO SCH (09:18)
[2018-02-04] MEDS: Lidocaine 5% Patch TD SCH (09:22)
[2018-02-04] MEDS: Ammonium Lactate 12% Lotion (225 g) EXT SCH (11:00)
[2018-02-05] MEDS: Oxycodone/Acetaminophen 5/325 mg Tab PO PRN ×6 (00:23→20:40)
[2018-02-05 06:53] LABS: BASO # 0.1 K/uL (0.0-0.2); BASO % 0.6 % (0.0-2.0); EOS # 0.1 K/uL (0.0-0.7); EOS % 0.9 % (0.0-4.0); HEMOGLOBIN 11.3 g/dL (12.0-18.0); LYMPH % 33.6 % (20.0-40.0); MEAN CORPUSCULAR HEMOGLOBIN 30.1 pg (27.0-31.0); MEAN CORPUSCULAR HGB CONC 33.5 g/dL (33.0-37.0); MEAN PLATELET VOLUME 7.4 fL (7.2-11.7); MONO # 0.8 K/uL (0.0-0.8); MONO % 8.6 % (0.0-10.0); NEUT % 56.3 % (50.0-75.0); NRBC % 0.1 % (0.0-2.0); RBC 3.75 Mil/uL (4.40-5.90); RED CELL DISTRIBUTION WIDTH 14.7 % (11.5-14.5); WHITE BLOOD COUNT 8.8 K/uL (4.8-10.8)
[2018-02-05 07:11] LABS: ALB/GLOB RATIO 1.3 (1.0-2.1); ALBUMIN 4.1 g/dL (3.5-5.0); ALT/SGPT 15 U/L (21-72); AST/SGOT 24 U/L (17-59); BLOOD UREA NITROGEN 26 mg/dL (9-20); CALCIUM 9.7 mg/dl (8.6-10.4); GFR AFRICAN-AMERICAN > 60; GFR NON-AFRICAN AMERICAN > 60
[2018-02-05] MEDS: (Novolin R) Insulin Human Regular 100 units/ml vial SC SCH ×4 (07:45→21:16)
[2018-02-05] MEDS ORDERED: Potassium Chloride 20 mEq ER Tab PO ONE (08:46)
[2018-02-05] MEDS: Pantoprazole 40 mg EC Tab PO SCH (09:39)
[2018-02-05] MEDS: Lidocaine 5% Patch TD SCH (09:41)
[2018-02-05] MEDS: oxyCODONE 20 mg ER Tab (oxyCONTIN) PO SCH ×2 (09:42→22:38)
[2018-02-05] MEDS: Ammonium Lactate 12% Lotion (225 g) EXT SCH (09:46)
--- NOTE | 2018-02-05 10:58 | CP.PCM.PN ---
<Tamiko Thurman - Last Filed: 02/05/18 10:56> Subjective - Date & Time of Evaluation Date of Evaluation: 02/05/18 Time of Evaluation: 07:00 - Subjective Subjective: Medicine Progress Note: Patient seen and examined at bedside. Doing well with no new complaints at this time. Tolerating diet. No chest pain, SOB, fever, chills, nausea, vomiting. Objective - Vital Signs/Intake and Output Vital Signs (last 24 hours): Temp Pulse Resp BP Pulse Ox 98.0 F 51 L 20 131/76 97 02/05/18 08:44 02/05/18 08:44 02/05/18 08:44 02/05/18 09:39 02/05/18 08:44 Intake and Output: 02/05/18 02/05/18 06:59 18:59 Output Total 500 Balance -500 - Medications Medications: Current Medications Albuterol/Ipratropium (Duoneb 3 Mg/0.5 Mg (3 Ml) Ud) 3 ml INH RQ6 PRN PRN Reason: Shortness of Breath Allopurinol (Zyloprim) 300 mg PO DAILY PENDING SALE TO [facility] Last Admin: 02/05/18 09:39 Dose: 300 mg Alprazolam (Xanax) 1 mg PO BID PRN PRN Reason: Anxiety Last Admin: 02/04/18 22:41 Dose: 1 mg Carvedilol (Coreg) 3.125 mg PO BID PENDING SALE [facility] Last Admin: 02/05/18 09:39 Dose: 3.125 mg Dextrose (Dextrose 50% Inj) 0 ml IV STAT PRN; Protocol PRN Reason: Hypoglycemia Protocol Dextrose (Glutose 15) 0 gm PO ONCE PRN; Protocol PRN Reason: Hypoglycemia Protocol Docusate Sodium (Colace) 100 mg PO TID PENDING SALE TO [facility] Last Admin: 02/05/18 09:40 Dose: 100 mg Ergocalciferol (Drisdol 50,000 Intl Units Cap) 1 cap PO QWK PENDING SALE TO [facility] Ferrous Sulfate (Feosol) 325 mg PO DAILY PENDING SALE [facility] Last Admin: 02/05/18 09:39 Dose: 325 mg Furosemide (Lasix) 40 mg PO DAILY PENDING SALE [facility] Last Admin: 02/05/18 09:39 Dose: 40 mg Glucagon (Glucagen Diagnostic Kit) 0 mg IM STAT PRN; Protocol PRN Reason: Hypoglycemia Protocol Heparin Sodium (Porcine) (Heparin) 5,000 units SC Q8 PENDING SALE [facility] Last Admin: 02/05/18 05:35 Dose: 5,000 units Insulin Human Regular (Novolin R) 0 unit SC ACHS PENDING SALE [facility] PRN Reason: Protocol Last Admin: 02/05/18 07:45 Dose: Not Given Lactic Acid (Lac-Hydrin 12% Lotion (225 G)) 0 gm EXT DAILY PENDING SALE [facility] Last Admin: 02/05/18 09:46 Dose: 1 applic Lidocaine (Lidoderm) 1 ea TD DAILY PENDING S[facility] Last Admin: 02/05/18 09:41 Dose: 1 ea Losartan Potassium (Cozaar) 100 mg PO DAILY PEND[facility] Last Admin: 02/05/18 09:40 Dose: 100 mg Montelukast Sodium (Singulair) 10 mg PO HS PENDING SALE [facility] Last Admin: 02/04/18 21:33 Dose: 10 mg Oxycodone HCl (Oxycontin Extended Release Tab) 20 mg PO Q12 PENDING SALE [facility] Last Admin: 02/05/18 09:42 Dose: 20 mg Oxycodone/Acetaminophen (Percocet 5/325 Mg Tab) 1 tab PO Q4H PRN PRN Reason: Pain, moderate (4-7) Stop: 02/07/18 10:53 Last Admin: 02/05/18 08:37 Dose: 1 tab Pantoprazole Sodium (Protonix Ec Tab) 40 mg PO DAILY [facility]END[facility] S[facility] Last Admin: 02/05/18 09:39 Dose: 40 mg Prednisone (Prednisone Tab) 5 mg PO DAILY PEND[facility] S[facility] Last Admin: 02/05/18 09:40 Dose: 5 mg Fluticasone/Salmeterol (Advair Diskus 100/50) 1 puff INH RQ12 PENDING SALE TO [facility] Tamsulosin HCl (Flomax) 0.4 mg PO DAILY PENDING SALE [facility] Last Admin: 02/05/18 09:39 Dose: 0.4 mg - Labs Labs: 02/05/18 06:48 02/05/18 06:48 APTT 26 SECONDS (21-34) 02/01/18 06:14 - Constitutional Appears: No Acute Distress, Chronically Ill - Head Exam Head Exam: ATRAUMATIC, NORMAL INSPECTION - Eye Exam Eye Exam: EOMI, Normal appearance - ENT Exam ENT Exam: Mucous Membranes Moist - Respiratory Exam Respiratory Exam: Clear to Ausculation Bilateral, NORMAL BREATHING PATTERN - Cardiovascular Exam Cardiovascular Exam: REGULAR RHYTHM, +S1, +S2 - GI/Abdominal Exam GI & Abdominal Exam: Soft, Normal Bowel Sounds. absent: Tenderness Additional comments: obese abdomen - Extremities Exam Extremities Exam: absent: Joint Swelling, Pedal Edema, Tenderness - Neurological Exam Neurological Exam: Alert, Awake, Oriented x3 - Psychiatric Exam Psychiatric exam: Normal Affect - Skin Skin Exam: absent: Normal Color (bilateral venous stasis LE - from the knee down ) Assessment and Plan - Assessment and Plan (Free Text) Assessment: s/p Contusion of the Right Knee - Knee CT (01/21/18): Diffuse soft tissue edema. Small right joint effusion - knee x-ray 3 views: No acute fracture. Right patellar and suprapatellar soft tissue swelling and adjacent suprapatellar effusion. - Right knee synovial fluid aspirated on 01/21/18 on admission * Negative crystals * WBC 10,962; RBC 1,132,220; Neutrophil 67, Lymphocyte 23, Monos/macorphage 10 - Lactic acid (01/22/18): 0.7 - Wound culture: gram stain shows moderate PMN WBCs, no organisms seen - blood culture: negative s/p Mechanical Fall - Head CT without contrast (01/21/18): No evidence of acute intracranial hemorrhage mass effect or midline shift. Low-attenuation fluid along the right aspect of the interhemispheric falx with maximum thickness of 7 millimeter may represent hygroma or old subdural collection. Moderate atrophy and moderate presumed chronic microvascular white matter ischemic disease. - PT/OT evaluation for gait dysfunction Bilateral lower extremity edema secondary to chronic venous insufficiency - CT Angio Chest PE protocol (01/21/18): No pulmonary embolism. No focal consolidation. Multiple chronic bilateral rib fractures. - venous duplex (01/22/18): negative Chronic pain syndrome - Medications verified through patient's pharmacy [facility] ([phone] ) - UDS positive for opiates and benzodiazepines - Alcohol quantitative < 10 - Medications * Xanax 1mg PO BID * Lidocaine Patch daily * Oxycontin 20mg PO Q12 * Percocet 5/325 PO Q4H PRN History of bladder CA - Stable at this time - Urology Dr. Bellamy consult deferred at this time, patient asymptomatic -- will consult appropriately - Continue home medication * Flomax 0.4mg PO QD History of CHF --> after review patient does not have history of CHF based off the ECHO - ECHO (01/23/18): Normal study; LVEF 70% - Maintain head of bead 45 degrees - Continue home medications * Lasix 40mg PO QD * Cozaar 100mg PO QD History of Venous Insufficiency - Continue home medications * Lasix 40mg PO QD * Lac-Hydrin 12% Lotion apply to area BID History of HTN - Continue home medications * Cozaar 100mg PO QD * Coreg 3.125mg po bid History of DM - HgbA1c (01/22/18): 5.7 - Continue monitoring with Accuchecks - Medications * hold home medication Metformin 500mg bid * ISS and hypoglycemia protocols History of COPD - Continue home medications * Duoneb 3ml INH RQ6 PRN * Breo Ellipta 100/25mcg INH * Singulair 10mg PO QHS * Prednisone 5mg PO QD History of gout - Continue home medication * Allopurinol 300mg PO QD Hypokalemia - Potassium: 3.3 --> 3.7 - Likely secondary to Lasix - Continue to Monitor Prophylaxis - SCDs - Consistent carbohydrate diet - Colace 100mg PO TID - Pantoprazole 40mg po daily - heparin SC q8 - PT/OT evaluation: Recommends [facility] Disposition: Patient is stable for discharge to [facility] pending placement. Case discussed with Dr. Allison Thurman PGY-1 <Tabby Cooper V - Last Filed: 02/05/18 12:49> Objective - Vital Signs/Intake and Output Vital Signs (last 24 hours): Temp Pulse Resp BP Pulse Ox 98.0 F 51 L 20 131/76 97 02/05/18 08:44 02/05/18 08:44 02/05/18 08:44 02/05/18 09:39 02/05/18 08:44 Intake and Output: 02/05/18 02/05/18 06:59 18:59 Output Total 500 Balance -500 - Medications Medications: Current Medications Albuterol/Ipratropium (Duoneb 3 Mg/0.5 Mg (3 Ml) Ud) 3 ml INH RQ6 PRN PRN Reason: Shortness of Breath Allopurinol (Zyloprim) 300 mg PO DAILY [facility] Last Admin: 02/05/18 09:39 Dose: 300 mg Alprazolam (Xanax) 1 mg PO BID PRN PRN Reason: Anxiety Last Admin: 02/04/18 22:41 Dose: 1 mg Carvedilol (Coreg) 3.125 mg PO BID PENDING SALE TO [facility] Last Admin: 02/05/18 09:39 Dose: 3.125 mg Dextrose (Dextrose 50% Inj) 0 ml IV STAT PRN; Protocol PRN Reason: Hypoglycemia Protocol Dextrose (Glutose 15) 0 gm PO ONCE PRN; Protocol PRN Reason: Hypoglycemia Protocol Docusate Sodium (Colace) 100 mg PO TID PENDING SALE TO [facility] Last Admin: 02/05/18 09:40 Dose: 100 mg Ergocalciferol (Drisdol 50,000 Intl Units Cap) 1 cap PO QWK PENDING SALE TO [facility] Ferrous Sulfate (Feosol) 325 mg PO DAILY PENDING SALE [facility] Last Admin: 02/05/18 09:39 Dose: 325 mg Furosemide (Lasix) 40 mg PO DAILY PENDING SALE [facility] Last Admin: 02/05/18 09:39 Dose: 40 mg Glucagon (Glucagen Diagnostic Kit) 0 mg IM STAT PRN; Protocol PRN Reason: Hypoglycemia Protocol Heparin Sodium (Porcine) (Heparin) 5,000 units SC Q8 PENDING SALE TO [facility] Last Admin: 02/05/18 05:35 Dose: 5,000 units Insulin Human Regular (Novolin R) 0 unit SC ACHS PENDING SALE TO [facility] PRN Reason: Protocol Last Admin: 02/05/18 12:22 Dose: Not Given Lactic Acid (Lac-Hydrin 12% Lotion (225 G)) 0 gm EXT DAILY PENDING SALE TO [facility] Last Admin: 02/05/18 09:46 Dose: 1 applic Lidocaine (Lidoderm) 1 ea TD DAILY PENDING SALE [facility] Last Admin: 02/05/18 09:41 Dose: 1 ea Losartan Potassium (Cozaar) 100 mg PO DAILY PENDING [facility]ALE [facility] Last Admin: 02/05/18 09:40 Dose: 100 mg Montelukast Sodium (Singulair) 10 mg PO HS PENDING SALE [facility] Last Admin: 02/04/18 21:33 Dose: 10 mg Oxycodone HCl (Oxycontin Extended Release Tab) 20 mg PO Q12 PENDING SALE TO [facility] Last Admin: 02/05/18 09:42 Dose: 20 mg Oxycodone/Acetaminophen (Percocet 5/325 Mg Tab) 1 tab PO Q4H PRN PRN Reason: Pain, moderate (4-7) Stop: 02/07/18 10:53 Last Admin: 02/05/18 08:37 Dose: 1 tab Pantoprazole Sodium (Protonix Ec Tab) 40 mg PO DAILY PENDING SALE [facility] Last Admin: 02/05/18 09:39 Dose: 40 mg Prednisone (Prednisone Tab) 5 mg PO DAILY PENDING SALE [facility] Last Admin: 02/05/18 09:40 Dose: 5 mg Fluticasone/Salmeterol (Advair Diskus 100/50) 1 puff INH RQ12 [facility] Tamsulosin HCl (Flomax) 0.4 mg PO DAILY PENDING SALE TO [facility] Last Admin: 02/05/18 09:39 Dose: 0.4 mg - Labs Labs: 02/05/18 06:48 02/05/18 06:48 APTT 26 SECONDS (21-34) 02/01/18 06:14 Attending/Attestation - Attestation I have personally seen and examined this patient.: Yes I have fully participated in the care of the patient.: Yes I have reviewed all pertinent clinical information, including history, physical exam and plan: Yes Notes (Text): Patient seen, examined, and case discussed with day-time resident. Patient denies acute complaints except for pain from long standing arthritis, AVN b/l hips, and gout. Patient reports he is amenable to [facility] and mainly concerned for his mother who is recovering from open heart surgery at another facility. Patient is recommended to keep his SCDS on to prevent clots. patient is aware and will try. Patient is medically stable for discharge. We are currently awaiting for [facility] bed. Assessment/Plan 1) History of COPD - Pulm consult: Dr. Shah --> help appreciated - ABG (01/24/18) to evaluate patient's status on room air. pH 7.52; CO2 44; HCO3: 33.9 - Per Dr. Shah patient is stable for [facility] and to be discharged with Breo Ellipta Inhaler and nebulizer treatment for [facility] - Chest x-ray (01/23/18): No active pulmonary disease. * Initial chest x-ray (01/21/18): No active disease. No acute/significant interval changes. * Supplemental oxygen * Solu medrol 40mg IV q12h * Continue telemetry monitoring * Duoneb 3ml INH RQ4 [facility] * Advair Diskus 250/50 1 puff INH RQ12 * Singulair 10mg PO QHS 2) Contusion of the Right Knee-->Resolved * Knee has improved since last admission * Workup noted in patient's EMR from last hospitalization 3) s/p Mechanical Fall * Head CT without contrast (01/21/18): No evidence of acute intracranial hemorrhage mass effect or midline shift. Low-attenuation fluid along the right aspect of the interhemispheric falx with maximum thickness of 7 millimeter may represent hygroma or old subdural collection. Moderate atrophy and moderate presumed chronic microvascular white matter ischemic disease. * PT/OT evaluation for gait dysfunction * Patient denies any falls since he left the hospital against medical advice. * Recommended for [facility]; patient is amenable to [facility] * Head: bruising from prior fall is gone 4) Thrombocytopenia-->normalized * Normalized * HIT negative 5) Bilateral lower extremity edema * secondary to chronic venous insufficiency-->trace * CT Angio Chest PE protocol (01/21/18): No pulmonary embolism. No focal consolidation. Multiple chronic bilateral rib fractures. * venous duplex: negative * Wound Care --> help appreciated * Medications * Lac-Hydrin 12% Lotion apply to area BID 6) Chronic pain syndrome-->chronic * Patient has known history of bilateral avascular necrosis of the hips; wherein he sees a pain management doctor as outpatient * Medications verified through patient's pharmacy [facility] ([phone] ) * Medications * Xanax 1mg PO BID * Lidoderm patch daily * Oxycontin 20mg PO Q12 * Percocet 5/325 PO Q4H PRN 7) History of bladder CA-->chronic * Patient sees Dr. Bellamy as outpatient every 3-4 months * Continue home medication * Flomax 0.4mg PO QD 8) History of Diastolic CHF-->chronic * Cardiology consulted: Dr. Owne (patient's embroiderer) last admission, stable from standpoint last admission * ECHO (01/23/18): Normal study; LVEF 70% * Continue home medications * Lasix 40mg PO QD * Cozaar 100mg PO QD 9) History of HTN-->chronic - Continue home medications * Cozaar 100mg PO QD * Coreg 3.125mg po bid 10) History of DM-->chronic * HgbA1c (01/22/18): 5.7 * Continue monitoring with Accuchecks * Medications * hold home medication Metformin 500mg bid * ISS and hypoglycemia protocols 11) History of gout-->chronic * Continue home medication * Allopurinol 300mg PO QD 12) Electrolyte deficiency * monitor and replete if necessary 13) Prophylaxis * SCDs * Consistent carbohydrate diet * Glucerna supplement as ordered * Florastor 250mg PO BID * Colace 100mg PO TID * Pepcid 20mg PO BID * heparin SC q8 * PT/OT evaluation
[2018-02-06] MEDS: Oxycodone/Acetaminophen 5/325 mg Tab PO PRN ×3 (00:43→12:54)
[2018-02-06 07:30] LABS: BASO # 0.1 K/uL (0.0-0.2); BASO % 0.6 % (0.0-2.0); EOS # 0.1 K/uL (0.0-0.7); EOS % 0.9 % (0.0-4.0); LYMPH # 3.1 K/uL (1.0-4.3); LYMPH % 34.5 % (20.0-40.0); MEAN CORPUSCULAR HEMOGLOBIN 30.4 pg (27.0-31.0); MEAN CORPUSCULAR HGB CONC 34.2 g/dL (33.0-37.0); MEAN PLATELET VOLUME 7.4 fL (7.2-11.7); MONO # 0.7 K/uL (0.0-0.8); NRBC % 0.1 % (0.0-2.0); RBC 3.62 Mil/uL (4.40-5.90); RED CELL DISTRIBUTION WIDTH 14.5 % (11.5-14.5)
[2018-02-06] MEDS: (Novolin R) Insulin Human Regular 100 units/ml vial SC SCH (07:46)
[2018-02-06 07:54] LABS: CALCIUM 9.6 mg/dl (8.6-10.4)
[2018-02-06 07:58] LABS: ALB/GLOB RATIO 1.4 (1.0-2.1); ALBUMIN 4.1 g/dL (3.5-5.0); ALT/SGPT 15 U/L (21-72); AST/SGOT 22 U/L (17-59); BLOOD UREA NITROGEN 36 mg/dL (9-20); GFR AFRICAN-AMERICAN > 60; GFR NON-AFRICAN AMERICAN > 60
[2018-02-06] MEDS: Pantoprazole 40 mg EC Tab PO SCH (09:12)
[2018-02-06] MEDS: oxyCODONE 20 mg ER Tab (oxyCONTIN) PO SCH (09:13)
[2018-02-06] MEDS: Lidocaine 5% Patch TD SCH (09:16)
[2018-02-06] MEDS: Ammonium Lactate 12% Lotion (225 g) EXT SCH (09:17)
--- NOTE | 2018-02-06 14:54 | CP.PCM.DIS ---
<Josue Thurmanssperla Billy - Last Filed: 02/06/18 14:49> Provider - Provider Date of Admission: 01/31/18 18:46 Attending physician: Tabby Cooper DO Time Spent in preparation of Discharge (in minutes): 40 Hospital Course - Lab Results Lab Results: Most Recent Lab Values WBC 9.0 K/uL (4.8-10.8) 02/06/18 07:10 RBC 3.62 Mil/uL (4.40-5.90) L 02/06/18 07:10 Hgb 11.0 g/dL (12.0-18.0) L 02/06/18 07:10 Hct 32.2 % (35.0-51.0) L 02/06/18 07:10 MCV 89.0 fL (80.0-94.0) 02/06/18 07:10 MCH 30.4 pg (27.0-31.0) 02/06/18 07:10 MCHC 34.2 g/dL (33.0-37.0) 02/06/18 07:10 RDW 14.5 % (11.5-14.5) 02/06/18 07:10 Plt Count 248 K/uL (130-400) 02/06/18 07:10 MPV 7.4 fL (7.2-11.7) 02/06/18 07:10 Neut % (Auto) 56.0 % (50.0-75.0) 02/06/18 07:10 Lymph % (Auto) 34.5 % (20.0-40.0) 02/06/18 07:10 [place] % (Auto) 8.0 % (0.0-10.0) 02/06/18 07:10 Eos % (Auto) 0.9 % (0.0-4.0) 02/06/18 07:10 Baso % (Auto) 0.6 % (0.0-2.0) 02/06/18 07:10 Neut # (Auto) 5.0 K/uL (1.8-7.0) 02/06/18 07:10 Lymph # (Auto) 3.1 K/uL (1.0-4.3) 02/06/18 07:10 [place] # (Auto) 0.7 K/uL (0.0-0.8) 02/06/18 07:10 Eos # (Auto) 0.1 K/uL (0.0-0.7) 02/06/18 07:10 Baso # (Auto) 0.1 K/uL (0.0-0.2) 02/06/18 07:10 APTT 26 SECONDS (21-34) 02/01/18 06:14 Sodium 137 mmol/L (132-148) 02/06/18 07:10 Potassium 3.8 mmol/L (3.6-5.2) 02/06/18 07:10 Chloride 96 mmol/L (98-107) L 02/06/18 07:10 Carbon Dioxide 30 mmol/L (22-30) 02/06/18 07:10 Anion Gap 15 (10-20) 02/06/18 07:10 BUN 36 mg/dL (9-20) H 02/06/18 07:10 Creatinine 1.1 mg/dL (0.8-1.5) 02/06/18 07:10 Est GFR ( Amer) > 60 02/06/18 07:10 Est GFR (Non-Af Amer) > 60 02/06/18 07:10 POC Glucose (mg/dL) 122 mg/dL (65-110) H 02/06/18 11:25 Random Glucose 103 mg/dL (75-110) 02/06/18 07:10 Calcium 9.6 mg/dl (8.6-10.4) 02/06/18 07:10 Phosphorus 4.1 mg/dL (2.5-4.5) 02/06/18 07:10 Magnesium 1.9 mg/dL (1.6-2.3) 02/06/18 07:10 Total Bilirubin 0.5 mg/dL (0.2-1.3) 02/06/18 07:10 AST 22 U/L (17-59) 02/06/18 07:10 ALT 15 U/L (21-72) L 02/06/18 07:10 Alkaline Phosphatase 138 U/L (38-126) H 02/06/18 07:10 NT-Pro-B Natriuret Pep 490 pg/mL (0-900) 01/31/18 16:47 Total Protein 7.0 g/dL (6.3-8.3) 02/06/18 07:10 Albumin 4.1 g/dL (3.5-5.0) 02/06/18 07:10 Globulin 2.9 gm/dL (2.2-3.9) 02/06/18 07:10 Albumin/Globulin Ratio 1.4 (1.0-2.1) 02/06/18 07:10 - Hospital Course Hospital Course: This is a 57 yo male, with past medical history of emphysema/COPD, CHF, HTN, DM , presenting to [facility] ER by ambulance. He is here because he wants to go through with [facility] placement. He signed out against medical advice recently. He says he had to leave to see his mother who is in the hospital. He wants to stay now. He reports chronic pain. He is very concerned about getting his pain medications including oxycontin and percocet. He has trouble walking from chronic alcoholism. 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 He denies any drinking and drug use today. He reports hip pain and knee pain bilaterally. He denies chest pain, palpitations, dizziness, fevers, chills, shortness of breath. PMD: [facility] Specialists: Recently seen by Dr. Mayo and Dr. Rodriguez. Insurance: the [facility] medicaid o PMH: emphysema/COPD, CHF, HTN, DM PSH: plate in elbow, repair of torn meniscus left knee Allergies: cefuroxime, cephalexin, clarithromycin, levaquin, avelox FH: [place] in family Home meds: metformin, lisinopril, singulair, pepcid, xanax 1 mg po bid , crestor , albuterol, oxycontin, percocet Social hx: former smoker. quit 20 yrs ago. smoker for 20 yrs. hx of alcoholism. hx of heroin iv abuse. Hospital Course: Patient recently signed out against medical advice on 01/25/18. At that time it was recommended for patient to go to [facility] due to his difficulty in ambulating. Patient then came back to the hospital on 01/31/18 because he wanted to now go to [facility]. Patient was restarted on his home medications and was then approved for [facility] and discharged. Patient was given prescriptions: Albuterol HFA [Ventolin HFA 90 mcg/actuation (8 g)] 2 puff IH [id number] PRN #1 inhaler PRN Reason: Shortness Of Breath Allopurinol [Zyloprim] 300 mg PO DAILY #30 tab Ammonium Lactate 12% [Lac-Hydrin 12% Lotion (225 g)] 225 g TP BID #1 bottle Carvedilol [Coreg] 6.25 mg PO BID #60 tab Famotidine [Pepcid] 1 tab PO DAILY #30 tab Fluticasone/Vilanterol [Breo Ellipta 100-25 Mcg INH] 1 each IH DAILY #1 blst.w.dev Losartan [Cozaar] 100 mg PO DAILY #30 tab Montelukast [Singulair] 10 mg PO DAILY #30 tab predniSONE [predniSONE Tab] 5 mg PO DAILY #30 tab Tamsulosin [Flomax] 0.4 mg PO ONCE #30 cap This is a summary of the patient's hospitalization, please review EMR for further details. Discharge Exam - Head Exam Head Exam: ATRAUMATIC, NORMAL INSPECTION - Eye Exam Eye Exam: EOMI, Normal appearance - ENT Exam ENT Exam: Mucous Membranes Moist - Respiratory Exam Respiratory Exam: Clear to PA & Lateral, NORMAL BREATHING PATTERN - Cardiovascular Exam Cardiovascular Exam: REGULAR RHYTHM, +S1, +S2 - GI/Abdominal Exam GI & Abdominal Exam: Normal Bowel Sounds, Soft. absent: Tenderness - Neurological Exam Neurological exam: Alert, Oriented x3 - Psychiatric Exam Psychiatric exam: Normal Affect - Skin Additional comments: venous stasis bilateral lower extremities Discharge Plan - Follow Up Plan Condition: STABLE Disposition: REHAB FACILITY/REHAB UNIT Instructions: Heart Healthy Diet, Chronic Pain (DC), Heart Failure, Adult (DC) , Dependent Edema (DC), Fluid Restricted Diet <Tabby Cooper V - Last Filed: 02/06/18 15:21> Provider - Provider Date of Admission: 01/31/18 18:46 Attending physician: Tabby Cooper DO Hospital Course - Lab Results Lab Results: Most Recent Lab Values WBC 9.0 K/uL (4.8-10.8) 02/06/18 07:10 RBC 3.62 Mil/uL (4.40-5.90) L 02/06/18 07:10 Hgb 11.0 g/dL (12.0-18.0) L 02/06/18 07:10 Hct 32.2 % (35.0-51.0) L 02/06/18 07:10 MCV 89.0 fL (80.0-94.0) 02/06/18 07:10 MCH 30.4 pg (27.0-31.0) 02/06/18 07:10 MCHC 34.2 g/dL (33.0-37.0) 02/06/18 07:10 RDW 14.5 % (11.5-14.5) 02/06/18 07:10 Plt Count 248 K/uL (130-400) 02/06/18 07:10 MPV 7.4 fL (7.2-11.7) 02/06/18 07:10 Neut % (Auto) 56.0 % (50.0-75.0) 02/06/18 07:10 Lymph % (Auto) 34.5 % (20.0-40.0) 02/06/18 07:10 [place] % (Auto) 8.0 % (0.0-10.0) 02/06/18 07:10 Eos % (Auto) 0.9 % (0.0-4.0) 02/06/18 07:10 Baso % (Auto) 0.6 % (0.0-2.0) 02/06/18 07:10 Neut # (Auto) 5.0 K/uL (1.8-7.0) 02/06/18 07:10 Lymph # (Auto) 3.1 K/uL (1.0-4.3) 02/06/18 07:10 [place] # (Auto) 0.7 K/uL (0.0-0.8) 02/06/18 07:10 Eos # (Auto) 0.1 K/uL (0.0-0.7) 02/06/18 07:10 Baso # (Auto) 0.1 K/uL (0.0-0.2) 02/06/18 07:10 APTT 26 SECONDS (21-34) 02/01/18 06:14 Sodium 137 mmol/L (132-148) 02/06/18 07:10 Potassium 3.8 mmol/L (3.6-5.2) 02/06/18 07:10 Chloride 96 mmol/L (98-107) L 02/06/18 07:10 Carbon Dioxide 30 mmol/L (22-30) 02/06/18 07:10 Anion Gap 15 (10-20) 02/06/18 07:10 BUN 36 mg/dL (9-20) H 02/06/18 07:10 Creatinine 1.1 mg/dL (0.8-1.5) 02/06/18 07:10 Est GFR ( Amer) > 60 02/06/18 07:10 Est GFR (Non-Af Amer) > 60 02/06/18 07:10 POC Glucose (mg/dL) 122 mg/dL (65-110) H 02/06/18 11:25 Random Glucose 103 mg/dL (75-110) 02/06/18 07:10 Calcium 9.6 mg/dl (8.6-10.4) 02/06/18 07:10 Phosphorus 4.1 mg/dL (2.5-4.5) 02/06/18 07:10 Magnesium 1.9 mg/dL (1.6-2.3) 02/06/18 07:10 Total Bilirubin 0.5 mg/dL (0.2-1.3) 02/06/18 07:10 AST 22 U/L (17-59) 02/06/18 07:10 ALT 15 U/L (21-72) L 02/06/18 07:10 Alkaline Phosphatase 138 U/L (38-126) H 02/06/18 07:10 NT-Pro-B Natriuret Pep 490 pg/mL (0-900) 01/31/18 16:47 Total Protein 7.0 g/dL (6.3-8.3) 02/06/18 07:10 Albumin 4.1 g/dL (3.5-5.0) 02/06/18 07:10 Globulin 2.9 gm/dL (2.2-3.9) 02/06/18 07:10 Albumin/Globulin Ratio 1.4 (1.0-2.1) 02/06/18 07:10 Clinical Quality Measures - CQM - Heart Failure Ejection Fraction: 40 % or Greater Left Ventricular Function to be assessed after discharge: Yes SAULO Inhibitor Prescribed: No Contraindication/Reason for not providing: on arb Beta-Taylor Prescribed: Carvedilol Angiotensin II Receptor Taylor Prescribed: Yes AnticoagulationTherapy for Atrial Fibrillation/Atrialflutter: No Contraindication/Reason for not providing: not clinically indicated Contraindication/Reason for not providing: not clinically indicated Hydralazine Nitrate Prescribed: No Contraindication/Reason for not providing: not clinically indicated Implantable Cardioverter Defibrillator Therapy: No Contraindication/Reason for not providing: not clinically indicated Cardiac Resynchronization Therapy Prescribed: No Contraindication/Reason for not providing: not clinically indicated Will be discharged to: Shelter Facility Follow Up Date (must be within 7 days from discharge): 02/13/18 Follow Up Time: 09:00 - Date & Time of Discharge Summary Date of Discharge Summary: 02/06/18 Time of Discharge Summary: 14:49 Attending/Attestation - Attestation I have personally seen and examined this patient.: Yes I have fully participated in the care of the patient.: Yes I have reviewed all pertinent clinical information, including history, physical exam and plan: Yes Notes (Text): Patient seen, examined, and case discussed with day-time resident. Patient denies acute complaints except for pain from long standing arthritis, AVN b/l hips, and gout. Patient seen working with physical therapist this morning. patient's spirits are ok. He is mainly concerned about mother; he met with pastoral care yesterday. Patient approved for [facility], will be going today. Assessment/Plan 1) History of COPD - Pulm consult: Dr. Shah --> help appreciated - ABG (01/24/18) to evaluate patient's status on room air. pH 7.52; CO2 44; HCO3: 33.9 - Per Dr. Shah patient is stable for [facility] and to be discharged with Breo Ellipta Inhaler and nebulizer treatment for [facility] - Chest x-ray (01/23/18): No active pulmonary disease. * Initial chest x-ray (01/21/18): No active disease. No acute/significant interval changes. * Supplemental oxygen * Solu medrol 40mg IV q12h * Continue telemetry monitoring * Duoneb 3ml INH RQ4 SANDRA * Advair Diskus 250/50 1 puff INH RQ12 * Singulair 10mg PO QHS 2) Contusion of the Right Knee-->Resolved * Knee has improved since last admission * Workup noted in patient's EMR from last hospitalization 3) s/p Mechanical Fall * Head CT without contrast (01/21/18): No evidence of acute intracranial hemorrhage mass effect or midline shift. Low-attenuation fluid along the right aspect of the interhemispheric falx with maximum thickness of 7 millimeter may represent hygroma or old subdural collection. Moderate atrophy and moderate presumed chronic microvascular white matter ischemic disease. * PT/OT evaluation for gait dysfunction * Patient denies any falls since he left the hospital against medical advice. * Recommended for [facility]; patient is amenable to [facility] * Head: bruising from prior fall is gone 4) Thrombocytopenia-->normalized * Normalized * HIT negative 5) Bilateral lower extremity edema * secondary to chronic venous insufficiency-->trace * CT Angio Chest PE protocol (01/21/18): No pulmonary embolism. No focal consolidation. Multiple chronic bilateral rib fractures. * venous duplex: negative * Wound Care --> help appreciated * Medications * Lac-Hydrin 12% Lotion apply to area BID 6) Chronic pain syndrome-->chronic * Patient has known history of bilateral avascular necrosis of the hips; wherein he sees a pain management doctor as outpatient * Medications verified through patient's pharmacy [facility] ([phone] ) * Medications * Xanax 1mg PO BID * Lidoderm patch daily * Oxycontin 20mg PO Q12 * Percocet 5/325 PO Q4H PRN 7) History of bladder CA-->chronic * Patient sees Dr. Bellamy as outpatient every 3-4 months * Continue home medication * Flomax 0.4mg PO QD 8) History of Diastolic CHF-->chronic * Cardiology consulted: Dr. 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's assistant prosecuting attorney) last admission, stable from standpoint last admission * ECHO (01/23/18): Normal study; LVEF 70% * Continue home medications * Lasix 40mg PO QD * Cozaar 100mg PO QD 9) History of HTN-->chronic - Continue home medications * Cozaar 100mg PO QD * Coreg 3.125mg po bid 10) History of DM-->chronic * HgbA1c (01/22/18): 5.7 * Continue monitoring with Accuchecks * Medications * hold home medication Metformin 500mg bid * ISS and hypoglycemia protocols 11) History of gout-->chronic * Continue home medication * Allopurinol 300mg PO QD 12) Electrolyte deficiency * monitor and replete if necessary 13) Prophylaxis * SCDs * Consistent carbohydrate diet * Glucerna supplement as ordered * Florastor 250mg PO BID * Colace 100mg PO TID * Pepcid 20mg PO BID * heparin SC q8 * PT/OT evaluation
[2018-02-06 15:53] VITALS: BP 125/77; PULSE 77; TEMP 98.1; O2SAT 99
[2018-02-07] MEDS ORDERED: Ergocalciferol 50,000 Intl Units Cap PO SCH (10:00)
== END 2018-02-06 16:10 | DRG 543 ==
LOC: C.ER 15:10 → C.9E 18:46 → C.6T 22:53
PROVIDERS: ADMIT Hospitalist; ATTEND Hospitalist
DX: I87.2 Venous insufficiency (chronic) (peripheral) (principal); I50.32 Chronic diastolic (congestive) heart failure; I13.0 Hypertensive heart and chronic kidney disease with heart failure and stage 1 through stage 4 chronic kidney disease, or unspecified chronic kidney disease; J43.9 Emphysema, unspecified; N18.9 Chronic kidney disease, unspecified; E11.22 Type 2 diabetes mellitus with diabetic chronic kidney disease; D69.6 Thrombocytopenia, unspecified; G89.4 Chronic pain syndrome; M10.9 Gout, unspecified; G47.30 Sleep apnea, unspecified; F10.20 Alcohol dependence, uncomplicated; Z87.891 Personal history of nicotine dependence; Z85.51 Personal history of malignant neoplasm of bladder

== ENCOUNTER 2018-10-01 11:07 | Inpatient (IN) | payer MEDICAID ==
[2018-10-01 11:07] VITALS: BMI 30.3
[2018-10-01] MEDS ORDERED: Albuterol-Ipratrop 3 mg / 0.5 (3 ml) UD ONE (11:16)
[2018-10-01] MEDS ORDERED: Dexamethasone 4 mg/1 ml IM STA (12:02)
[2018-10-01] MEDS ORDERED: Albuterol 0.083% Inhal Sol (2.5 mg/3 mL) UD IH STA ×2 (12:03→12:26)
[2018-10-01] MEDS ORDERED: Albuterol-Ipratrop 3 mg / 0.5 (3 ml) UD INH STA (12:26)
[2018-10-01 12:32] LABS: BASO % 0.2 % (0.0-2.0); LYMPH # 3.1 K/uL (1.0-4.3); LYMPH % 19.2 % (20.0-40.0); MEAN CELL VOLUME 90.2 fL (80.0-94.0); MEAN CORPUSCULAR HGB CONC 33.3 g/dL (33.0-37.0); MEAN PLATELET VOLUME 8.1 fL (7.2-11.7); MONO # 0.7 K/uL (0.0-0.8); MONO % 4.5 % (0.0-10.0); NEUT # 12.4 K/uL (1.8-7.0); NEUT % 76.1 % (50.0-75.0); RBC 4.38 Mil/uL (4.40-5.90); RED CELL DISTRIBUTION WIDTH 14.3 % (11.5-14.5)
[2018-10-01 12:33] LABS: HEMOGLOBIN 13.2 g/dL (12.0-18.0); WHITE BLOOD COUNT 16.3 K/uL (4.8-10.8)
[2018-10-01 12:38] LABS: INR 1.1; PROTHROMBIN TIME 11.5 SECONDS (9.7-12.2)
[2018-10-01 12:46] LABS: ALB/GLOB RATIO 1.8 (1.0-2.1); ALBUMIN 4.8 g/dL (3.5-5.0); ALT/SGPT 60 U/L (21-72); AST/SGOT 74 U/L (17-59); BLOOD UREA NITROGEN 21 mg/dL (9-20); CALCIUM 9.1 mg/dl (8.6-10.4); GFR NON-AFRICAN AMERICAN > 60
[2018-10-01 12:56] LABS: B-TYPE NATRIURETIC PEPTIDE 693 pg/mL (0-900); CK-MB 1.02 ng/mL (0.0-3.38)
[2018-10-01] MEDS ORDERED: Vancomycin 1 GM 1 GM/250 ML BAG IV STA (13:13)
--- NOTE | 2018-10-01 13:16 | C.PDOC ---
History Of Present Illness Patient BIBA for evaluation of shortness of breath for approx 1 week, as per EMS and family member at home. History is limitd due to clinical condition. PMHx - COPD, CHF, DM, HTN, peripheral edema, TONIO, gastritis Time Seen by Provider: 10/01/18 11:24 Chief Complaint (Nursing): Respiratory Distress History Per: EMS History/Exam Limitations: clinical condition Current Symptoms Are (Timing): Still Present Severity: Severe Past Medical History Reviewed: Historical Data, Nursing Documentation, Vital Signs Vital Signs: Last Vital Signs Temp 103 F H 10/01/18 11:18 Pulse 136 H 10/01/18 11:18 Resp 30 H 10/01/18 11:27 BP 230/84 H 10/01/18 11:18 Pulse Ox 98 10/01/18 11:27 - Medical History PMH: Arthritis, Asthma, CHF, COPD, Diabetes, Emphysema, Fractures (LEFT SHOULDER ORIF LEFT ELBOW RIGHT SHOULDER), Gastritis (FROM MEDS), HTN, Peripheral Edema, Pneumonia, Chronic Kidney Disease, Sleep Apnea (NO C PAP) - [facility] Procedures DRAINAGE OF RIGHT KNEE JOINT, PERCUTANEOUS APPROACH (01/21/18) Family History: States: No Known Family Hx - Social History Hx Tobacco Use: No Hx Alcohol Use: No Hx Substance Use: No - Immunization History Hx Tetanus Toxoid Vaccination: Yes Hx Influenza Vaccination: Yes Hx Pneumococcal Vaccination: Yes Review Of Systems Review Of Systems: ROS cannot be obtained secondary to pt's inabilty to answer questions. Physical Exam - Physical Exam Appears: In Acute Distress (in modeate to severe respiratory distress), Other (lethargic appearing) Head: Atraumatic, Normacephalic Eye(s): bilateral: Normal Inspection Oral Mucosa: Moist Cardiovascular: Rhythm Regular (tachycardic ) Respiratory: Accessory Muscle Use (moderate to severe), Rales (scant, at bases B/L ), No Rhonchi, Wheezing (diffuse expiratory wheezing B/L ) Gastrointestinal/Abdominal: Normal Exam, Bowel Sounds, Soft, No Tenderness, Other (obese) Extremity: Pedal Edema (+3 pitting edema B/L LEs, LLE diffuse erythema) Pulses: Left Dorsalis Pedis: Normal, Right Dorsalis Pedis: Normal Neurological/Psych: Other (lethargic appearing) ED Course And Treatment - Laboratory Results Result Diagrams: 10/10/18 08:36 10/10/18 08:36 Lab Results: PT 11.5 SECONDS (9.7-12.2) 10/01/18 12:26 INR 1.1 10/01/18 12:26 APTT 27 SECONDS (21-34) 10/01/18 12:26 Troponin I 0.0280 ng/mL (0.00-0.120) 10/01/18 12:26 NT-Pro-B Natriuret Pep 693 pg/mL (0-900) 10/01/18 12:26 Total Bilirubin 0.8 mg/dL (0.2-1.3) 10/01/18 12:26 AST 74 U/L (17-59) H D 10/01/18 12:26 ALT 60 U/L (21-72) 10/01/18 12:26 Alkaline Phosphatase 78 U/L (38-126) 10/01/18 12:26 Total Protein 7.4 g/dL (6.3-8.3) 10/01/18 12:26 Albumin 4.8 g/dL (3.5-5.0) 10/01/18 12:26 Globulin 2.7 gm/dL (2.2-3.9) 10/01/18 12:26 Albumin/Globulin Ratio 1.8 (1.0-2.1) 10/01/18 12:26 ECG: Interpreted By Me, Viewed By Me (sinus tachycardia 160bpm, normal axis, Q waves III, aVF, no acute ST changes) ECG Interpretation: Abnormal O2 Sat by Pulse Oximetry: 98 (ra) Pulse Ox Interpretation: Normal Progress Note: Patient given IM Decadron and SC terbutaline emergently while IV access attempted. Patient placed on Bipap with mild improvement, began to try to get out of bed and refused Bipap. Patient also absolutely refusing endotracheal intubation. Patient switched to vapotherm. He continues to try to get out of bed, requesting Xanax and pain medication. 1:30PM- Dr. Stauffer spoken with for ICU consult. 1:14pm- Patient's bother at bedside, states patient has been SOB for approx 1 week. PMHx of COPD, bladder CA, alcohol/substance abuse, chronic B/L hip pain. - Physician Consult Information Physician Contacted: Jayeshkuma S Michaels Outcome Of Conversation: Discussed patient with medicine medical science liaison, agrees with admission for COPD exacerbation, dyspnea, respiratory distress, left leg cellulitis. Critical Care Time - Critical Care Note Total Time (in mins): 50 Documented critical care: time excludes all time spent performing seperately billable procedures. Disposition - Disposition Disposition: HOSPITALIZED Disposition Time: 13:54 Condition: GUARDED - Clinical Impression Clinical Impression: Respiratory distress, COPD exacerbation, Left leg cellulitis, Dyspnea Decision To Admit - Pt Status Changed To: Hospital Disposition Of: Inpatient - Admit Certification Admit to Inpatient:: After my assessment, the patient will require hospit alization for at least two midnights. This is because of the severity of symptoms shown, intensity of services needed, and/or the medical risk in this patient being treated as an outpatient. - InPatient: Physician Admission Certification: I certify that this patient requires 2 or more midnights of care for the following reason:: see notes - . Bed Request Type: ICU Admitting Physician: Marielos Michaels Patient Diagnosis: Respiratory distress, COPD exacerbation, Left leg cellulitis, Dyspnea
[2018-10-01 13:25] LABS: URINE BACTERIA RARE (<OCC); URINE BILIRUBIN NEGATIVE (NEGATIVE); URINE BLOOD 1+ (NEGATIVE); URINE CLARITY Clear (Clear); URINE COLOR Yellow (YELLOW); URINE GLUCOSE (UA) NORMAL (Normal); URINE LEUKOCYTE ESTERASE NEG Leu/uL (Negative); URINE PROTEIN 1+ mg/dL (NEGATIVE); URINE UROBILINOGEN NORMAL mg/dL (0.2-1.0)
--- NOTE | 2018-10-01 13:37 | RAD ---
HISTORY: SOB COMPARISON: Chest x-ray performed 01/23/18 TECHNIQUE: Chest, one view. FINDINGS: Examination limited by habitus and hypoinflation. LUNGS: Mild patchy atelectasis or infiltrate within the medial right lower lobe. No focal consolidation. Please note that chest x-ray has limited sensitivity for the detection of pulmonary masses. PLEURA: No significant pleural effusion identified. No definite pneumothorax . CARDIOVASCULAR: Heart size appears top normal. Atherosclerotic calcifications of the aorta. OSSEOUS STRUCTURES: Degenerative changes. Osseous demineralization. VISUALIZED UPPER ABDOMEN: Elevation of the right hemidiaphragm. OTHER FINDINGS: None. IMPRESSION: Hypoinflation. Mild patchy atelectasis or infiltrate within the medial right lower lobe.
[2018-10-01 13:41] LABS: ABG ALLEN TEST POS; ARTERIAL BLOOD GAS HCO3 25.7 mmol/L (21-28); ARTERIAL BLOOD GAS O2 SAT 86.5 % (95-98); ARTERIAL BLOOD GAS PCO2 43 mm/Hg (35-45); ARTERIAL BLOOD GAS PO2 47 mm/Hg (80-100); ARTERIAL BLOOD GAS TCO2 27.9 mmol/L (22-28)
[2018-10-01] MEDS ORDERED: Vancomycin 1 GM 1 GM/250 ML BAG IVPB ONE (13:54)
[2018-10-01] MEDS ORDERED: Albuterol 0.083% Inhal Sol (2.5 mg/3 mL) UD ONE (14:13)
[2018-10-01] MEDS ORDERED: Iodixanol 320 MG/ML 100 ML BOTTLE IV ONE (14:29)
[2018-10-01] MEDS ORDERED: Piperacillin/Tazobact 3.375 GM in Sodium Chloride 100 ML IVPB SCH (15:00)
[2018-10-01] MEDS: Sodium Chloride 0.9% 1,000 ML IV SCH (15:15)
[2018-10-01] MEDS ORDERED: Enoxaparin 40 mg Syringe SC SCH (15:30)
[2018-10-01] MEDS: MethylPREDNISolone 40 mg Vial IVP SCH ×2 (15:56→23:35)
[2018-10-01] MEDS: Piperacill/Tazo 3.375gm in Dex 3.375 GM/50 ML BAG IVPB STA ×2 (16:00→16:13)
--- NOTE | 2018-10-01 16:02 | CP.PCM.CON ---
<Romel Ge - Last Filed: 10/01/18 19:06> History of Present Illness - History of Present Illness History of Present Illness: PGY-[address] Stauffer service cc: respiratory distress Patient is a 58 year old male with past medical history of COPD, CHF, Bladder CA, Chronic bilateral hip pain, HTN, DM, TONIO that was brought by ambulance for shortness of breath. Patient states he was not feeling well for the past two days, reporting fevers, and burning like pain in his lower extremities, mostly on his left side. Patient states this is the first time that it happens. Brother at bedside states patient has been short of breath since a few days ago, patient says he gets more short of breath when moving and doing activities of daily living. In the ED, patient was in respiratory distress and was placed on bipap, which he ended up refusing, and he refused intubation. WAs placed on vapotherm, states shortness of breath is improving. Patient's temperature was noted to be 1 04F in the ED. Patient denies chest pain, shortness of breath, abdominal pain, n/v/d/c, denies coughing. Patient screams with pain, states having chronic bilateral hip pain and says he usually takes 2 ocycotinin and 4 percocets a day. Denies other complaints at this time. PMD: Dr Encarnacion Pmhx: COPD, CHF, Bladder CA, Chronic bilateral hip pain, HTN, DM, TONIO Shx: plate in elbow, repair of torn meniscus left knee All: Cefuroxime, cephalexin, clarithromycin, levofloxacin, moxifloxacin Fmhx: [place] in family Social hx: Former smoker, quit 20 years ago, smoked for 20 years. Hx of alcoholism, heroin abuse. Review of Systems - Review of Systems All systems: reviewed and no additional remarkable complaints except Review of Systems: as stated in HPI Past Patient History - Infectious Disease Hx of Infectious Diseases: None - Tetanus Immunizations Tetanus Immunization: Unknown - Past Medical History & Family History Past Medical History?: Yes - Past Social History Smoking Status: Former Smoker - CARDIAC Hx Congestive Heart Failure: Yes Hx Hypertension: Yes Hx Peripheral Edema: Yes - PULMONARY Hx Asthma: Yes Hx Chronic Obstructive Pulmonary Disease (COPD): Yes Hx Emphysema: Yes Hx Pneumonia: Yes Hx Sleep Apnea: Yes (NO C PAP) - NEUROLOGICAL Hx Neurological Disorder: No - HEENT Hx HEENT Problems: Yes - RENAL Hx Chronic Kidney Disease: Yes - ENDOCRINE/METABOLIC Hx Endocrine Disorders: Yes Hx Diabetes Mellitus Type 2: Yes - HEMATOLOGICAL/ONCOLOGICAL Hx Blood Disorders: Yes Hx Cancer: Yes (BLADDER) - INTEGUMENTARY Hx Dermatological Problems: Yes (DISCOLORED LOWER EXTREMITIES ) - MUSCULOSKELETAL/RHEUMATOLOGICAL Hx Arthritis: Yes Hx Fractures: Yes (LEFT SHOULDER ORIF LEFT ELBOW RIGHT SHOULDER) - GASTROINTESTINAL Hx Gastritis: Yes (FROM MEDS) - GENITOURINARY/GYNECOLOGICAL Hx Genitourinary Disorders: Yes Hx Bladder Cancer: Yes Hx Hematuria: Yes Other/Comment: BLADDER CANCER - PSYCHIATRIC Hx Substance Use: No - SURGICAL HISTORY Hx Surgeries: Yes Hx Open Reduction Internal Fixation: Yes (LEFT SHOULDER LEFT ELBOW REMOVAL HARDWARE) Hx Orthopedic Surgery: Yes (LEFT KNEE) Other/Comment: TURP; HX: CYSTO WITH BLADDER BX. AND FULG. - ANESTHESIA Hx Anesthesia Reactions: (DIFFICULTY TO AROUSE BUT WAS DISCHARGED) Meds Allergies/Adverse Reactions: Allergies Allergy/AdvReac Type Severity Reaction Status Date / Time cefuroxime Allergy RASH Verified 10/01/18 11:25 cephalexin Allergy RASH Verified 10/01/18 11:25 clarithromycin Allergy RASH Verified 10/01/18 11:25 levofloxacin Allergy RASH Verified 10/01/18 11:25 moxifloxacin Allergy RASH Verified 10/01/18 11:25 - Medications Medications: Current Medications Enoxaparin Sodium (Lovenox) 40 mg SC DAILY [facility] Vancomycin HCl 1,000 mg/ (Sodium Chloride) 250 mls @ 166.6 mls/hr IVPB Q12H [facility]; Protocol Sodium Chloride (Sodium Chloride 0.9%) 1,000 mls @ 100 mls/hr IV .Q10H [facility] Doxycycline Hyclate 100 mg/ (Sodium Chloride) 100 mls @ 100 mls/hr IVPB Q12H [facility]; Protocol Methylprednisolone (Solu-Medrol) 40 mg IVP Q8H [facility] Pantoprazole Sodium (Protonix Inj) 40 mg IVP DAILY [facility] Physical Exam - Constitutional Appears: No Acute Distress - Head Exam Head Exam: ATRAUMATIC, NORMAL INSPECTION, NORMOCEPHALIC - Eye Exam Eye Exam: EOMI, Normal appearance, PERRL - ENT Exam ENT Exam: Mucous Membranes Dry, Normal Exam - Neck Exam Neck exam: Positive for: Normal Inspection - Respiratory Exam Respiratory Exam: Clear to Auscultation Bilateral, NORMAL BREATHING PATTERN. absent: Rales, Rhonchi, Wheezes - Cardiovascular Exam Cardiovascular Exam: Tachycardia, REGULAR RHYTHM, +S1, +S2 - GI/Abdominal Exam GI & Abdominal Exam: Distended, Normal Bowel Sounds, Soft. absent: Tenderness - Extremities Exam Extremities exam: Positive for: tenderness Additional comments: left mid 1/3 lower extremity erythema, no skin abrasion, tenderness to super ficial palpation. edema extending from LE to foot Right Lower extremity pain to superficial palpation, edema extending from LE to foot - Back Exam Back exam: NORMAL INSPECTION - Neurological Exam Neurological exam: Alert, Oriented x3 - Psychiatric Exam Psychiatric exam: Agitated, Normal Affect, Normal Mood - Skin Skin Exam: Dry, Intact, Normal Color, Warm Results - Vital Signs Recent Vital Signs: Last Vital Signs Temp 103 F H 10/01/18 13:48 Pulse 152 H 10/01/18 13:55 Resp 24 10/01/18 13:55 BP 100/73 10/01/18 13:55 Pulse Ox 98 10/01/18 14:03 - Labs Result Diagrams: 10/01/18 12:26 10/01/18 17:33 Labs: Laboratory Results - last 24 hr 10/01/18 10/01/18 10/01/18 12:26 12:26 12:26 WBC 16.3 H D RBC 4.38 L Hgb 13.2 D Hct 39.5 MCV 90.2 MCH 30.0 MCHC 33.3 RDW 14.3 Plt Count 172 MPV 8.1 Neut % (Auto) 76.1 H Lymph % (Auto) 19.2 L Peach % (Auto) 4.5 Eos % (Auto) 0.0 Baso % (Auto) 0.2 Neut # (Auto) 12.4 H Lymph # (Auto) 3.1 Peach # (Auto) 0.7 Eos # (Auto) 0.0 Baso # (Auto) 0.0 PT 11.5 INR 1.1 APTT 27 Puncture Site pCO2 pO2 HCO3 ABG pH ABG Total CO2 ABG O2 Saturation ABG Base Excess Von Test ABG Potassium A-a O2 Difference Respiratory Index Glucose Lactate Liter Flow Vent Mode FiO2 Sodium Potassium Chloride Carbon Dioxide Anion Gap BUN Creatinine Est GFR ( Amer) Est GFR (Non-Af Amer) Random Glucose Calcium Total Bilirubin AST ALT Alkaline Phosphatase Total Creatine Kinase CK-MB (Mass) Troponin I NT-Pro-B Natriuret Pep Total Protein Albumin Globulin Albumin/Globulin Ratio Arterial Blood Potassium Urine Color Urine Clarity Urine pH Ur Specific [place] Urine Protein Urine Glucose (UA) Urine Ketones Urine Blood Urine Nitrate Urine Bilirubin Urine Urobilinogen Ur Leukocyte Esterase Urine WBC (Auto) Urine RBC (Auto) Urine Bacteria Influenza Typ A,B (EIA) Negative for flu a/b 10/01/18 10/01/18 10/01/18 12:26 13:10 13:35 WBC RBC Hgb Hct MCV MCH MCHC RDW Plt Count MPV Neut % (Auto) Lymph % (Auto) Peach % (Auto) Eos % (Auto) Baso % (Auto) Neut # (Auto) Lymph # (Auto) Peach # (Auto) Eos # (Auto) Baso # (Auto) PT INR APTT Puncture Site Rr pCO2 43 pO2 47 L HCO3 25.7 ABG pH 7.40 ABG Total CO2 27.9 ABG O2 Saturation 86.5 L ABG Base Excess 1.5 Von Test Pos ABG Potassium 3.5 L A-a O2 Difference 149.0 Respiratory Index 3.2 Glucose 125 H Lactate 2.7 H Liter Flow 40.0 Vent Mode High flow FiO2 35.0 Sodium 135 136.0 Potassium 4.7 Chloride 98 102.0 Carbon Dioxide 29 Anion Gap 13 BUN 21 H Creatinine 0.7 L Est GFR ( Amer) > 60 Est GFR (Non-Af Amer) > 60 Random Glucose 129 H D Calcium 9.1 Total Bilirubin 0.8 AST 74 H D ALT 60 Alkaline Phosphatase 78 Total Creatine Kinase 50 L CK-MB (Mass) 1.02 Troponin I 0.0280 NT-Pro-B Natriuret Pep 693 Total Protein 7.4 Albumin 4.8 Globulin 2.7 Albumin/Globulin Ratio 1.8 Arterial Blood Potassium 3.5 L Urine Color Yellow Urine Clarity Clear Urine pH 5.0 Ur Specific [place] 1.017 Urine Protein 1+ H Urine Glucose (UA) Normal Urine Ketones Negative Urine Blood 1+ H Urine Nitrate Negative Urine Bilirubin Negative Urine Urobilinogen Normal Ur Leukocyte Esterase Neg Urine WBC (Auto) < 1 Urine RBC (Auto) < 1 Urine Bacteria Rare Influenza Typ A,B (EIA) Assessment & Plan - Assessment and Plan (Free Text) Plan: Patient is a 58 year old male with pmhx of COPD, Bladder CA, CHF, DM, HTN, peripheral edema, TONIO, alcohol/substancer abuse, chronic b/l hip pain was brought to the ED for shortness of breath, in ED with respiratory distress, refused bipap and intubation, on high flow O2 at this time, with left leg cellulitis, elevated lactate and wbc on ED labs. elevated temperature at 104F, on cooling blanket, give abx for possible celullitis coverage. Neuro AAOx3 xanax 0.5 HS Temperature 104 F cooling blanket Cardio hx of CHF echo - r/o vegetations - f/u results Hx of HTN - on home coreg and losartan cardio consult - Dr Hernandez Pulnatasha Presenting with COPD exarcerbation decadron IM and terbutaline SC in ED Bipap with mild improvement - refused afterwards patient refused ETT high flow 40% FiO2 Solumedrol 40 mg IVP Q8H lasix 40 IVP x ONCE duonebs Q6H ABG shock at 4:30 pm ABG repeat every 6H Pulm consult - Dr Henriquez GI clear liquid diet protonix Endo hx of DM ISS medium protocol accuchecks ACHS hypoglycemia protocol ID SIRS criteria, possible cellulitis left leg WBC 16.3, T: 104F, lactate 2.7, HR 133, tachypneic Vanco given in ED Vanco 1gm x1 Ciprofloxacin 100mg Q12H no zosyn, allergy to cephalexin, cefuroxime blood, urine cx pending cooling blanket monitor temperature CBC, CMP Q6H repeat lactate at 4:30pm ID consult - Dr Vázquez flu negative Nephro BUN/Cr 21/0.7 continue to monitor renal function PPX GI: protonic DVT: Lovenox 40SC Q daily, SCDs c/i due to leg cellulitis Percocet 1 tablet Q6 PRN for pain when temperature decreases Oxycotinin 10mg PO Q8H SANDRA Plan discussed with Dr Xiomy Ge - Date & Time Date: 10/01/18 Time: 14:59 <Justin Lopez - Last Filed: 10/04/18 16:40> Meds - Medications Medications: Current Medications Acetaminophen (Tylenol 650mg/20.3ml Solution Ud) 650 mg PO Q6 PRN PRN Reason: Temperature Last Admin: 01/29/19 18:26 Dose: 650 mg Albuterol/Ipratropium (Duoneb 3 Mg/0.5 Mg (3 Ml) Ud) 3 ml INH RQ6 [facility] Last Admin: 10/04/18 08:00 Dose: 3 ml Aspirin (Ecotrin) 81 mg PO DAILY [facility] Last Admin: 10/04/18 09:25 Dose: 81 mg Carvedilol (Coreg) 12.5 mg PO BID [facility] Dextrose (Dextrose 50% Inj) 0 ml IV STAT PRN; Protocol PRN Reason: Hypoglycemia Protocol Dextrose (Glutose 15) 0 gm PO ONCE PRN; Protocol PRN Reason: Hypoglycemia Protocol Enoxaparin Sodium (Lovenox) 40 mg SC DAILY [facility] Last Admin: 10/04/18 09:26 Dose: 40 mg Glucagon (Glucagen Diagnostic Kit) 0 mg IM STAT PRN; Protocol PRN Reason: Hypoglycemia Protocol Dextrose (Dextrose 5% In Water 1000 Ml) 1,000 mls @ 0 mls/hr IV .Q0M PRN; Protocol PRN Reason: Hypoglycemia Protocol Aztreonam 2 gm/ Sodium (Chloride) 100 mls @ 200 mls/hr IVPB Q8H [facility]; Protocol Last Admin: 10/04/18 14:10 Dose: 200 mls/hr Sodium Phosphate 15 mmole/ (Sodium Chloride) 255 mls @ 50 mls/hr IVPB .Q5H6M ONE Stop: 10/04/18 17:20 Last Admin: 10/04/18 12:21 Dose: 50 mls/hr Insulin Human Regular (Novolin R) 0 unit SC ACHS [facility]; Protocol Last Admin: 10/04/18 12:17 Dose: 3 u Lorazepam (Ativan) 1 mg PO Q6 PRN PRN Reason: Symptoms of alcohol withdrawl Losartan Potassium (Cozaar) 100 mg PO DAILY [facility] Last Admin: 10/04/18 09:25 Dose: 100 mg Methylprednisolone (Solu-Medrol) 40 mg IVP Q12H [facility] Oxycodone HCl (Oxycontin Extended Release Tab) 10 mg PO Q8H [facility] Stop: 10/04/18 19:01 Last Admin: 10/04/18 11:40 Dose: 10 mg Pantoprazole Sodium (Protonix Inj) 40 mg IVP DAILY [facility] Last Admin: 10/04/18 09:25 Dose: 40 mg Zolpidem Tartrate (Ambien) 5 mg PO HS PRN PRN Reason: Insomnia Last Admin: 10/02/18 01:46 Dose: 5 mg Results - Vital Signs Recent Vital Signs: Last Vital Signs Temp 99.5 F 10/04/18 12:00 Pulse 110 H 10/04/18 15:35 Resp 16 10/04/18 15:35 BP 146/71 10/04/18 15:35 Pulse Ox 89 L 10/04/18 15:35 - Labs Result Diagrams: 10/04/18 06:11 10/04/18 06:11 Labs: Laboratory Results - last 24 hr 10/03/18 10/03/18 10/04/18 16:10 21:22 06:11 WBC 16.0 H RBC 3.96 L Hgb 11.8 L Hct 36.2 MCV 91.4 MCH 29.7 MCHC 32.6 L RDW 14.2 Plt Count 231 MPV 7.8 Neut % (Auto) 91.3 H Lymph % (Auto) 4.6 L Peach % (Auto) 4.0 Eos % (Auto) 0.0 Baso % (Auto) 0.1 Neut # (Auto) 14.6 H Lymph # (Auto) 0.7 L Peach # (Auto) 0.6 Eos # (Auto) 0.0 Baso # (Auto) 0.0 Neutrophils % (Manual) 94 H Lymphocytes % (Manual) 2 L Monocytes % (Manual) 4 Platelet Estimate Normal RBC Morphology Normal Puncture Site pCO2 pO2 HCO3 ABG pH ABG Total CO2 ABG O2 Saturation ABG Base Excess ABG Hemoglobin ABG Carboxyhemoglobin POC ABG HHb (Measured) ABG Methemoglobin Von Test A-a O2 Difference Respiratory Index Hgb O2 Saturation FiO2 Sodium Potassium Chloride Carbon Dioxide Anion Gap BUN Creatinine Est GFR ( Amer) Est GFR (Non-Af Amer) POC Glucose (mg/dL) 146 H 193 H Random Glucose Calcium Phosphorus Magnesium Total Bilirubin AST ALT Alkaline Phosphatase Total Protein Albumin Globulin Albumin/Globulin Ratio 10/04/18 10/04/18 10/04/18 06:11 07:20 11:29 WBC RBC Hgb Hct MCV MCH MCHC RDW Plt Count MPV Neut % (Auto) Lymph % (Auto) Peach % (Auto) Eos % (Auto) Baso % (Auto) Neut # (Auto) Lymph # (Auto) Peach # (Auto) Eos # (Auto) Baso # (Auto) Neutrophils % (Manual) Lymphocytes % (Manual) Monocytes % (Manual) Platelet Estimate RBC Morphology Puncture Site pCO2 pO2 HCO3 ABG pH ABG Total CO2 ABG O2 Saturation ABG Base Excess ABG Hemoglobin ABG Carboxyhemoglobin POC ABG HHb (Measured) ABG Methemoglobin Von Test A-a O2 Difference Respiratory Index Hgb O2 Saturation FiO2 Sodium 139 Potassium 3.9 Chloride 102 Carbon Dioxide 31 H Anion Gap 11 BUN 31 H Creatinine 0.7 L Est GFR ( Amer) > 60 Est GFR (Non-Af Amer) > 60 POC Glucose (mg/dL) 185 H 239 H Random Glucose 172 H D Calcium 9.1 Phosphorus 1.8 L Magnesium 2.5 H Total Bilirubin 0.7 AST 48 ALT 47 Alkaline Phosphatase 89 Total Protein 7.0 Albumin 4.0 Globulin 3.1 Albumin/Globulin Ratio 1.3 10/04/18 10/04/18 11:41 15:58 WBC RBC Hgb Hct MCV MCH MCHC RDW Plt Count MPV Neut % (Auto) Lymph % (Auto) Peach % (Auto) Eos % (Auto) Baso % (Auto) Neut # (Auto) Lymph # (Auto) Peach # (Auto) Eos # (Auto) Baso # (Auto) Neutrophils % (Manual) Lymphocytes % (Manual) Monocytes % (Manual) Platelet Estimate RBC Morphology Puncture Site L/b pCO2 40 pO2 97 HCO3 25.9 ABG pH 7.42 ABG Total CO2 27.1 ABG O2 Saturation 97.8 ABG Base Excess 1.3 ABG Hemoglobin 10.2 L ABG Carboxyhemoglobin 1.2 POC ABG HHb (Measured) 2.2 ABG Methemoglobin 0.7 Von Test Na A-a O2 Difference 210.0 Respiratory Index 2.2 Hgb O2 Saturation 95.9 FiO2 50.0 Sodium Potassium Chloride Carbon Dioxide Anion Gap BUN Creatinine Est GFR ( Amer) Est GFR (Non-Af Amer) POC Glucose (mg/dL) 183 H Random Glucose Calcium Phosphorus Magnesium Total Bilirubin AST ALT Alkaline Phosphatase Total Protein Albumin Globulin Albumin/Globulin Ratio Attending/Attestation - Attestation I have personally seen and examined this patient.: Yes I have fully participated in the care of the patient.: Yes I have reviewed all pertinent clinical information: Yes Notes (Text): 01/31/19 16:11 I have seen and examined the patient. Medical records, lab studies, and imaging were reviewed by me and a management plan was formulated on multidisciplinary rounds with resident Dr. Ge. I agree with their documented assessment and plan. Patient is still septic from cellulitis, continue current abx regimen. Went into afib, increased coreg for rate control. [id number] - 4, starting on stroke prophylaxis with Eliquis. Patient is improving clinically. Bipap at night. Critical Care Time 35 minutes. Multi-disciplinary rounds were performed with house staff, nursing, speech therapy, respiratory therapy, pharmacy and nutrition with integrated input from the primary team/attending and other consulting services. The documented time is cumulative and includes review of patient data/exams/labs/chart review and examination of the patient on rounds and throughout the day; time is exclusive of any procedures or teaching time.
[2018-10-01] MEDS: Oxycodone/Acetaminophen 5/325 mg Tab PO PRN ×2 (16:18→23:22)
[2018-10-01 17:19] LABS: ABG ALLEN TEST POS; ARTERIAL BLOOD GAS HCO3 26.8 mmol/L (21-28); ARTERIAL BLOOD GAS PCO2 42 mm/Hg (35-45); ARTERIAL BLOOD GAS PH 7.42 (7.35-7.45); ARTERIAL BLOOD GAS PO2 103 mm/Hg (80-100); ARTERIAL BLOOD GAS TCO2 28.5 mmol/L (22-28)
[2018-10-01 17:55] LABS: ALB/GLOB RATIO 1.9 (1.0-2.1); ALBUMIN 4.2 g/dL (3.5-5.0); ALT/SGPT 57 U/L (21-72); AST/SGOT 64 U/L (17-59); BLOOD UREA NITROGEN 22 mg/dL (9-20); CALCIUM 8.4 mg/dl (8.6-10.4); GFR NON-AFRICAN AMERICAN > 60
--- NOTE | 2018-10-01 18:19 | CP.PCM.HP ---
Past Patient History - Infectious Disease Hx of Infectious Diseases: None - Tetanus Immunizations Tetanus Immunization: Unknown - Past Medical History & Family History Past Medical History?: Yes - Past Social History Smoking Status: Former Smoker - CARDIAC Hx Congestive Heart Failure: Yes Hx Hypertension: Yes Hx Peripheral Edema: Yes - PULMONARY Hx Asthma: Yes Hx Chronic Obstructive Pulmonary Disease (COPD): Yes Hx Emphysema: Yes Hx Pneumonia: Yes Hx Sleep Apnea: Yes (NO C PAP) - NEUROLOGICAL Hx Neurological Disorder: No - HEENT Hx HEENT Problems: Yes - RENAL Hx Chronic Kidney Disease: Yes - ENDOCRINE/METABOLIC Hx Endocrine Disorders: Yes Hx Diabetes Mellitus Type 2: Yes - HEMATOLOGICAL/ONCOLOGICAL Hx Blood Disorders: Yes Hx Cancer: Yes (BLADDER) - INTEGUMENTARY Hx Dermatological Problems: Yes (DISCOLORED LOWER EXTREMITIES ) - MUSCULOSKELETAL/RHEUMATOLOGICAL Hx Arthritis: Yes Hx Fractures: Yes (LEFT SHOULDER ORIF LEFT ELBOW RIGHT SHOULDER) - GASTROINTESTINAL Hx Gastritis: Yes (FROM MEDS) - GENITOURINARY/GYNECOLOGICAL Hx Genitourinary Disorders: Yes Hx Bladder Cancer: Yes Hx Hematuria: Yes Other/Comment: BLADDER CANCER - PSYCHIATRIC Hx Substance Use: No - SURGICAL HISTORY Hx Surgeries: Yes Hx Open Reduction Internal Fixation: Yes (LEFT SHOULDER LEFT ELBOW REMOVAL HARDWARE) Hx Orthopedic Surgery: Yes (LEFT KNEE) Other/Comment: TURP; HX: CYSTO WITH BLADDER BX. AND FULG. - ANESTHESIA Hx Anesthesia Reactions: (DIFFICULTY TO AROUSE BUT WAS DISCHARGED) Meds Allergies/Adverse Reactions: Allergies Allergy/AdvReac Type Severity Reaction Status Date / Time cefuroxime Allergy RASH Verified 10/01/18 11:25 cephalexin Allergy RASH Verified 10/01/18 11:25 clarithromycin Allergy RASH Verified 10/01/18 11:25 levofloxacin Allergy RASH Verified 10/01/18 11:25 moxifloxacin Allergy RASH Verified 10/01/18 11:25 Physical Exam - Constitutional Appears: Well - Head Exam Head Exam: ATRAUMATIC, NORMAL INSPECTION, NORMOCEPHALIC - Eye Exam Eye Exam: EOMI, Normal appearance, PERRL Pupil Exam: NORMAL ACCOMODATION, PERRL - ENT Exam ENT Exam: Mucous Membranes Moist, Normal Exam - Neck Exam Neck exam: Positive for: Normal Inspection - Respiratory Exam Respiratory Exam: Decreased Breath Sounds - Cardiovascular Exam Cardiovascular Exam: REGULAR RHYTHM, +S1, +S2 - GI/Abdominal Exam GI & Abdominal Exam: Diminished Bowel Sounds, Soft - Rectal Exam Rectal Exam: Deferred Results - Vital Signs Recent Vital Signs: Last Vital Signs Temp 104.6 F H 10/01/18 14:48 Pulse 152 H 10/01/18 13:55 Resp 18 10/01/18 16:35 BP 100/73 10/01/18 13:55 Pulse Ox 98 10/01/18 14:03 - Labs Result Diagrams: 10/01/18 12:26 10/01/18 17:33 Labs: Laboratory Results - last 24 hr 10/01/18 10/01/18 10/01/18 12:26 12:26 12:26 WBC 16.3 H D RBC 4.38 L Hgb 13.2 D Hct 39.5 MCV 90.2 MCH 30.0 MCHC 33.3 RDW 14.3 Plt Count 172 MPV 8.1 Neut % (Auto) 76.1 H Lymph % (Auto) 19.2 L [place] % (Auto) 4.5 Eos % (Auto) 0.0 Baso % (Auto) 0.2 Neut # (Auto) 12.4 H Lymph # (Auto) 3.1 Edgar # (Auto) 0.7 Eos # (Auto) 0.0 Baso # (Auto) 0.0 PT 11.5 INR 1.1 APTT 27 Puncture Site pCO2 pO2 HCO3 ABG pH ABG Total CO2 ABG O2 Saturation ABG Base Excess Von Test ABG Potassium A-a O2 Difference Respiratory Index Glucose Lactate Liter Flow Vent Mode FiO2 Sodium Potassium Chloride Carbon Dioxide Anion Gap BUN Creatinine Est GFR ( Amer) Est GFR (Non-Af Amer) POC Glucose (mg/dL) Random Glucose Calcium Phosphorus Magnesium Total Bilirubin AST ALT Alkaline Phosphatase Total Creatine Kinase CK-MB (Mass) Troponin I NT-Pro-B Natriuret Pep Total Protein Albumin Globulin Albumin/Globulin Ratio Arterial Blood Potassium Urine Color Urine Clarity Urine pH Ur Specific [place] Urine Protein Urine Glucose (UA) Urine Ketones Urine Blood Urine Nitrate Urine Bilirubin Urine Urobilinogen Ur Leukocyte Esterase Urine WBC (Auto) Urine RBC (Auto) Urine Bacteria Influenza Typ A,B (EIA) Negative for flu a/b 10/01/18 10/01/18 10/01/18 12:26 13:10 13:35 WBC RBC Hgb Hct MCV MCH MCHC RDW Plt Count MPV Neut % (Auto) Lymph % (Auto) [place] % (Auto) Eos % (Auto) Baso % (Auto) Neut # (Auto) Lymph # (Auto) Edgar # (Auto) Eos # (Auto) Baso # (Auto) PT INR APTT Puncture Site Rr pCO2 43 pO2 47 L HCO3 25.7 ABG pH 7.40 ABG Total CO2 27.9 ABG O2 Saturation 86.5 L ABG Base Excess 1.5 Von Test Pos ABG Potassium 3.5 L A-a O2 Difference 149.0 Respiratory Index 3.2 Glucose 125 H Lactate 2.7 H Liter Flow 40.0 Vent Mode High flow FiO2 35.0 Sodium 135 136.0 Potassium 4.7 Chloride 98 102.0 Carbon Dioxide 29 Anion Gap 13 BUN 21 H Creatinine 0.7 L Est GFR ( Amer) > 60 Est GFR (Non-Af Amer) > 60 POC Glucose (mg/dL) Random Glucose 129 H D Calcium 9.1 Phosphorus Magnesium Total Bilirubin 0.8 AST 74 H D ALT 60 Alkaline Phosphatase 78 Total Creatine Kinase 50 L CK-MB (Mass) 1.02 Troponin I 0.0280 NT-Pro-B Natriuret Pep 693 Total Protein 7.4 Albumin 4.8 Globulin 2.7 Albumin/Globulin Ratio 1.8 Arterial Blood Potassium 3.5 L Urine Color Yellow Urine Clarity Clear Urine pH 5.0 Ur Specific [place] 1.017 Urine Protein 1+ H Urine Glucose (UA) Normal Urine Ketones Negative Urine Blood 1+ H Urine Nitrate Negative Urine Bilirubin Negative Urine Urobilinogen Normal Ur Leukocyte Esterase Neg Urine WBC (Auto) < 1 Urine RBC (Auto) < 1 Urine Bacteria Rare Influenza Typ A,B (EIA) 10/01/18 10/01/18 10/01/18 17:17 17:33 18:12 WBC RBC Hgb Hct MCV MCH MCHC RDW Plt Count MPV Neut % (Auto) Lymph % (Auto) [place] % (Auto) Eos % (Auto) Baso % (Auto) Neut # (Auto) Lymph # (Auto) Edgar # (Auto) Eos # (Auto) Baso # (Auto) PT INR APTT Puncture Site Rra pCO2 42 pO2 103 H HCO3 26.8 ABG pH 7.42 ABG Total CO2 28.5 H ABG O2 Saturation 98.0 ABG Base Excess 2.4 Von Test Pos ABG Potassium 2.9 L A-a O2 Difference 130.0 Respiratory Index 1.3 Glucose 160 H Lactate 1.4 Liter Flow Vent Mode High flow FiO2 40.0 Sodium 137.0 135 Potassium 3.1 L Chloride 102.0 100 Carbon Dioxide 24 Anion Gap 14 BUN 22 H Creatinine 0.9 Est GFR ( Amer) > 60 Est GFR (Non-Af Amer) > 60 POC Glucose (mg/dL) 216 H Random Glucose 158 H D Calcium 8.4 L Phosphorus 2.8 Magnesium 1.6 Total Bilirubin 1.0 AST 64 H ALT 57 Alkaline Phosphatase 69 Total Creatine Kinase CK-MB (Mass) Troponin I 0.0690 NT-Pro-B Natriuret Pep Total Protein 6.5 Albumin 4.2 Globulin 2.3 Albumin/Globulin Ratio 1.9 Arterial Blood Potassium 2.9 L Urine Color Urine Clarity Urine pH Ur Specific [place] Urine Protein Urine Glucose (UA) Urine Ketones Urine Blood Urine Nitrate Urine Bilirubin Urine Urobilinogen Ur Leukocyte Esterase Urine WBC (Auto) Urine RBC (Auto) Urine Bacteria Influenza Typ A,B (EIA)
[2018-10-01 18:53] LABS: BASO % 0.2 % (0.0-2.0); HEMOGLOBIN 12.3 g/dL (12.0-18.0); LYMPH # 0.6 K/uL (1.0-4.3); LYMPH % 4.5 % (20.0-40.0); MEAN CELL VOLUME 90.9 fL (80.0-94.0); MEAN CORPUSCULAR HEMOGLOBIN 29.3 pg (27.0-31.0); MEAN CORPUSCULAR HGB CONC 32.3 g/dL (33.0-37.0); MEAN PLATELET VOLUME 7.5 fL (7.2-11.7); MONO # 0.5 K/uL (0.0-0.8); MONO % 3.7 % (0.0-10.0); NEUT # 12.8 K/uL (1.8-7.0); NEUT % 91.6 % (50.0-75.0); PLATELET COUNT 151 K/uL (130-400); RBC 4.19 Mil/uL (4.40-5.90); RED CELL DISTRIBUTION WIDTH 14.7 % (11.5-14.5)
[2018-10-01] MEDS ORDERED: Dextrose 50% SYRINGE Inj (50 ml) IV PRN (19:11)
[2018-10-01] MEDS ORDERED: Glucagon Recombinant 1 mg Inj IM PRN (19:11)
[2018-10-01] MEDS: Albuterol-Ipratrop 3 mg / 0.5 (3 ml) UD INH SCH (19:15)
[2018-10-01] MEDS: Potassium Chloride 20 mEq ER Tab PO SCH ×2 (20:12→23:33)
[2018-10-01] MEDS: oxyCODONE 10 mg ER Tab (oxyCONTIN) PO SCH (20:20)
[2018-10-01 20:59] LABS: PLATELET ESTIMATE DECREASED (NORMAL)
[2018-10-01 21:02] LABS: BANDS 9 % (0-2); LYMPHOCYTE 4 % (20-40); MONOCYTE 5 % (0-10); NEUTROPHIL 81 % (50-75); REACTIVE LYMPHOCYTES 1 % (0-0); TOTAL CELLS COUNTED 100
[2018-10-01 21:03] LABS: ANISOCYTOSIS SLIGHT; POIKILOCYTOSIS SLIGHT
[2018-10-01 21:04] LABS: HYPERSEGMENTATION PRESENT; LARGE PLATELETS PRESENT; MICROCYTOSIS SLIGHT; OVALOCYTES SLIGHT; POLYCHROMIC SLIGHT; SMUDGE CELLS PRESENT; SPHEROCYTES SLIGHT
[2018-10-01] MEDS: (Novolin R) Insulin Human Regular 100 units/ml vial SC SCH (21:35)
[2018-10-01] MEDS: Acetaminophen 650mg/20.3ml solution UD PO PRN (22:09)
[2018-10-02] MEDS: Albuterol-Ipratrop 3 mg / 0.5 (3 ml) UD INH SCH ×5 (00:34→19:29)
[2018-10-02] MEDS: Sodium Chloride 0.9% 1,000 ML IV SCH ×4 (01:04→20:39)
[2018-10-02] MEDS: Vancomycin 1 gm/NS 200 ml 1 GM/200 ML BAG IVPB SCH ×2 (01:10→14:35)
[2018-10-02] MEDS: oxyCODONE 10 mg ER Tab (oxyCONTIN) PO SCH ×3 (02:37→18:26)
[2018-10-02] MEDS: Acetaminophen 650mg/20.3ml solution UD PO PRN ×3 (05:00→18:26)
[2018-10-02] MEDS: Oxycodone/Acetaminophen 5/325 mg Tab PO PRN ×2 (05:01→10:15)
[2018-10-02 06:07] LABS: ABG ALLEN TEST POS; ARTERIAL BLOOD GAS HCO3 27.4 mmol/L (21-28); ARTERIAL BLOOD GAS HEMOGLOBIN 11.5 g/dL (11.7-17.4); ARTERIAL BLOOD GAS PCO2 42 mm/Hg (35-45); ARTERIAL BLOOD GAS PH 7.43 (7.35-7.45); ARTERIAL BLOOD GAS PO2 66 mm/Hg (80-100); ARTERIAL BLOOD GAS TCO2 29.2 mmol/L (22-28)
[2018-10-02 06:25] LABS: BASO % 0.1 % (0.0-2.0); HEMOGLOBIN 12.1 g/dL (12.0-18.0); LYMPH # 0.8 K/uL (1.0-4.3); MEAN CELL VOLUME 90.8 fL (80.0-94.0); MEAN CORPUSCULAR HEMOGLOBIN 29.3 pg (27.0-31.0); MEAN CORPUSCULAR HGB CONC 32.3 g/dL (33.0-37.0); MEAN PLATELET VOLUME 7.9 fL (7.2-11.7); MONO # 0.9 K/uL (0.0-0.8); MONO % 5.7 % (0.0-10.0); NEUT # 14.1 K/uL (1.8-7.0); NEUT % 89.2 % (50.0-75.0); PLATELET COUNT 135 K/uL (130-400); RBC 4.12 Mil/uL (4.40-5.90); RED CELL DISTRIBUTION WIDTH 14.4 % (11.5-14.5); WHITE BLOOD COUNT 15.8 K/uL (4.8-10.8)
[2018-10-02 06:39] LABS: BLOOD UREA NITROGEN 19 mg/dL (9-20); CALCIUM 8.6 mg/dl (8.6-10.4); GFR NON-AFRICAN AMERICAN > 60
[2018-10-02] MEDS: (Novolin R) Insulin Human Regular 100 units/ml vial SC SCH ×4 (07:30→21:46)
[2018-10-02] MEDS: MethylPREDNISolone 40 mg Vial IVP SCH ×2 (07:46→15:56)
[2018-10-02 08:44] LABS: BANDS 23 % (0-2); HYPOCHROMIC SLIGHT; LYMPHOCYTE 3 % (20-40); MONOCYTE 6 % (0-10); MYELOCYTE 1 % (0-0); NEUTROPHIL 67 % (50-75); PLATELET ESTIMATE NORMAL (NORMAL); TOTAL CELLS COUNTED 100
--- NOTE | 2018-10-02 09:14 | CP.PCM.CON ---
<Michael Alba - Last Filed: 10/02/18 18:43> History of Present Illness - History of Present Illness History of Present Illness: 58 year old male with a past medical history of bilateral hip pain, diabetes, hypertension, bladder cancer, chf, copd, and obstructive sleep apnea presents to the hospital after reporting shortness of breath for the past couple of days. Patient reports also reporting some lower extremity pain and swelling for the past couple of days. Patient denies any alleviating or modifying factors. Patient was admitted and subsequently went into respiratory distress. Patient was supposed to be intubated, however the patient denied the procedure. Patient was then offered BiPap in which he subsequently denied shortly after starting the treatment. Patient denies any chest pain, fevers, chills, headaches, syncopal episodes, or any other complaints. PMD: Dr Encarnacion Pmhx: COPD, CHF, Bladder CA, Chronic bilateral hip pain, HTN, DM, TONIO Shx: plate in elbow, repair of torn meniscus left knee All: Cefuroxime, cephalexin, clarithromycin, levofloxacin, moxifloxacin Fmhx: AL in family Social hx: Former smoker, quit 20 years ago, smoked for 20 years. Hx of alcoholism, heroin abuse. Review of Systems - Constitutional Constitutional: absent: Chills, Frequent Falls, Headache, Night Sweats, Snoring, Weakness - EENT Eyes: absent: Blurred Vision, Discharge, Loss of Peripheral Vision, Requires Corrective Lenses Ears: absent: Ear Discharge, Dizziness Nose/Mouth/Throat: absent: Nasal Congestion, Nose Pain, Bleeding Gums, Dysphagia, Mouth Pain - Cardiovascular Cardiovascular: absent: Chest Pain, Claudication, Leg Edema, Palpitations, Pedal Edema, Syncope - Respiratory Respiratory: Cough, Wheezing. absent: Snoring, Stridor, Excessive Mucous Production, Change in Mucous Color - Gastrointestinal Gastrointestinal: absent: Change in Stool Character, Diarrhea - Genitourinary Genitourinary: absent: Hematuria, Pyuria, Urinary Hesitance, Bladder Distension - Integumentary Integumentary: absent: Striae, Swelling - Neurological Neurological: absent: Abnormal Hearing, Burning Sensations, Numbness, Tremor, Vertigo, Weakness - Psychiatric Psychiatric: absent: Anxiety, Hopelessness, Panic Attacks, Paranoia - Endocrine Endocrine: absent: Polydipsia, Polyphagia, Polyuria - Hematologic/Lymphatic Hematologic: absent: Easy Bleeding, Easy Bruising Past Patient History - Infectious Disease Hx of Infectious Diseases: None - Tetanus Immunizations Tetanus Immunization: Unknown - Past Medical History & Family History Past Medical History?: Yes - Past Social History Smoking Status: Former Smoker - CARDIAC Hx Congestive Heart Failure: Yes Hx Hypertension: Yes Hx Peripheral Edema: Yes - PULMONARY Hx Asthma: Yes Hx Chronic Obstructive Pulmonary Disease (COPD): Yes Hx Emphysema: Yes Hx Pneumonia: Yes Hx Sleep Apnea: Yes (NO C PAP) - NEUROLOGICAL Hx Neurological Disorder: No - HEENT Hx HEENT Problems: Yes - RENAL Hx Chronic Kidney Disease: Yes - ENDOCRINE/METABOLIC Hx Endocrine Disorders: Yes Hx Diabetes Mellitus Type 2: Yes - HEMATOLOGICAL/ONCOLOGICAL Hx Blood Disorders: Yes Hx Cancer: Yes (BLADDER) - INTEGUMENTARY Hx Dermatological Problems: Yes (DISCOLORED LOWER EXTREMITIES ) - MUSCULOSKELETAL/RHEUMATOLOGICAL Hx Arthritis: Yes Hx Fractures: Yes (LEFT SHOULDER ORIF LEFT ELBOW RIGHT SHOULDER) - GASTROINTESTINAL Hx Gastritis: Yes (FROM MEDS) - GENITOURINARY/GYNECOLOGICAL Hx Genitourinary Disorders: Yes Hx Bladder Cancer: Yes Hx Hematuria: Yes Other/Comment: BLADDER CANCER - PSYCHIATRIC Hx Substance Use: No - SURGICAL HISTORY Hx Surgeries: Yes Hx Open Reduction Internal Fixation: Yes (LEFT SHOULDER LEFT ELBOW REMOVAL HARDWARE) Hx Orthopedic Surgery: Yes (LEFT KNEE) Other/Comment: TURP; HX: CYSTO WITH BLADDER BX. AND FULG. - ANESTHESIA Hx Anesthesia Reactions: (DIFFICULTY TO AROUSE BUT WAS DISCHARGED) Meds Allergies/Adverse Reactions: Allergies Allergy/AdvReac Type Severity Reaction Status Date / Time cefuroxime Allergy RASH Verified 10/01/18 11:25 cephalexin Allergy RASH Verified 10/01/18 11:25 clarithromycin Allergy RASH Verified 10/01/18 11:25 levofloxacin Allergy RASH Verified 10/01/18 11:25 moxifloxacin Allergy RASH Verified 10/01/18 11:25 - Medications Medications: Current Medications Acetaminophen (Tylenol 650mg/20.3ml Solution Ud) 650 mg PO Q6 PRN PRN Reason: Temperature Last Admin: 10/02/18 05:00 Dose: 650 mg Albuterol/Ipratropium (Duoneb 3 Mg/0.5 Mg (3 Ml) Ud) 3 ml INH RQ6 QUIN Last Admin: 10/02/18 08:22 Dose: Not Given Alprazolam (Xanax) 0.25 mg PO HS [facility] Stop: 10/08/18 22:01 Last Admin: 10/01/18 23:43 Dose: 0.25 mg Carvedilol (Coreg) 3.125 mg PO BID [facility] Last Admin: 10/02/18 08:55 Dose: 3.125 mg Dextrose (Dextrose 50% Inj) 0 ml IV STAT PRN; Protocol PRN Reason: Hypoglycemia Protocol Dextrose (Glutose 15) 0 gm PO ONCE PRN; Protocol PRN Reason: Hypoglycemia Protocol Enoxaparin Sodium (Lovenox) 40 mg SC DAILY [facility] Glucagon (Glucagen Diagnostic Kit) 0 mg IM STAT PRN; Protocol PRN Reason: Hypoglycemia Protocol Sodium Chloride (Sodium Chloride 0.9%) 1,000 mls @ 100 mls/hr IV .Q10H [facility] Last Admin: 10/02/18 04:57 Dose: 100 mls/hr Doxycycline Hyclate 100 mg/ (Sodium Chloride) 100 mls @ 100 mls/hr IVPB Q12H [facility]; Protocol Last Admin: 10/02/18 03:15 Dose: 100 mls/hr Vancomycin/Sodium Chloride (Vancomycin 1 Gm/Ns 200 Ml) 1 gm in 200 mls @ 133 mls/hr IVPB Q12H [facility]; Protocol Stop: 10/07/18 02:01 Last Admin: 10/02/18 01:10 Dose: 133 mls/hr Dextrose (Dextrose 5% In Water 1000 Ml) 1,000 mls @ 0 mls/hr IV .Q0M PRN; Protocol PRN Reason: Hypoglycemia Protocol Influenza Virus Vaccine (Flucelvax Quad [id number] Syr) 60 mcg IM .ONCE ONE Stop: 10/03/18 10:01 Insulin Human Regular (Novolin R) 0 unit SC ACHS [facility]; Protocol Last Admin: 10/01/18 21:35 Dose: Not Given Losartan Potassium (Cozaar) 100 mg PO DAILY [facility] Last Admin: 10/02/18 08:55 Dose: 100 mg Methylprednisolone (Solu-Medrol) 40 mg IVP Q8H [facility] Last Admin: 10/02/18 07:46 Dose: 40 mg Oxycodone HCl (Oxycontin Extended Release Tab) 10 mg PO Q8H [facility] Stop: 10/04/18 19:01 Last Admin: 10/02/18 02:37 Dose: 10 mg Oxycodone/Acetaminophen (Percocet 5/325 Mg Tab) 1 tab PO Q6H PRN PRN Reason: Pain, severe (8-10) Stop: 10/04/18 16:10 Last Admin: 10/02/18 05:01 Dose: 1 tab Pantoprazole Sodium (Protonix Inj) 40 mg IVP DAILY [facility] Last Admin: 10/01/18 15:56 Dose: 40 mg Zolpidem Tartrate (Ambien) 5 mg PO HS PRN PRN Reason: Insomnia Last Admin: 10/02/18 01:46 Dose: 5 mg Physical Exam - Constitutional Appears: Agitated - Head Exam Head Exam: ATRAUMATIC, NORMAL INSPECTION - Eye Exam Eye Exam: EOMI, Normal appearance, PERRL. absent: Periorbital tenderness Pupil Exam: NORMAL ACCOMODATION, PERRL. absent: Irregular, Unequal - ENT Exam ENT Exam: Mucous Membranes Moist, Normal Oropharynx - Respiratory Exam Respiratory Exam: Decreased Breath Sounds, Wheezes. absent: Clear to Auscultation Bilateral, Prolonged Expiratory Phase, Stridor, NORMAL BREATHING PATTERN - Cardiovascular Exam Cardiovascular Exam: Tachycardia, +S1, +S2 - GI/Abdominal Exam GI & Abdominal Exam: Normal Bowel Sounds, Soft. absent: Tenderness - Extremities Exam Extremities exam: Positive for: normal inspection. Negative for: full ROM, joint swelling, pedal edema - Back Exam Back exam: NORMAL INSPECTION. absent: CVA tenderness (L), CVA tenderness (R), paraspinal tenderness - Neurological Exam Neurological exam: Alert, CN II-XII Intact, Oriented x3 - Psychiatric Exam Psychiatric exam: Normal Affect, Normal Mood - Skin Skin Exam: Dry, Intact Results - Vital Signs Recent Vital Signs: Last Vital Signs Temp 101.5 F H 10/02/18 08:00 Pulse 119 H 10/02/18 08:03 Resp 19 10/02/18 08:03 BP 181/100 H 10/02/18 08:03 Pulse Ox 85 L 10/02/18 08:03 - Labs Result Diagrams: 10/02/18 06:22 10/02/18 06:22 Labs: Laboratory Results - last 24 hr 10/01/18 10/01/18 10/01/18 12:26 12:26 12:26 WBC 16.3 H D RBC 4.38 L Hgb 13.2 D Hct 39.5 MCV 90.2 MCH 30.0 MCHC 33.3 RDW 14.3 Plt Count 172 MPV 8.1 Neut % (Auto) 76.1 H Lymph % (Auto) 19.2 L Runnels % (Auto) 4.5 Eos % (Auto) 0.0 Baso % (Auto) 0.2 Neut # (Auto) 12.4 H Lymph # (Auto) 3.1 Runnels # (Auto) 0.7 Eos # (Auto) 0.0 Baso # (Auto) 0.0 Neutrophils % (Manual) Band Neutrophils % Lymphocytes % (Manual) Reactive Lymphs % Monocytes % (Manual) Myelocytes % Hypersegmented Polys Smudge Cells Platelet Estimate Large Platelets Polychromasia Hypochromasia (manual) Poikilocytosis (manual Anisocytosis (manual) Microcytosis (manual) Spherocytes Ovalocytes PT 11.5 INR 1.1 APTT 27 Puncture Site pCO2 pO2 HCO3 ABG pH ABG Total CO2 ABG O2 Saturation ABG Base Excess ABG Hemoglobin ABG Carboxyhemoglobin POC ABG HHb (Measured) ABG Methemoglobin Von Test ABG Potassium A-a O2 Difference Respiratory Index Hgb O2 Saturation Glucose Lactate Liter Flow Vent Mode FiO2 Sodium Potassium Chloride Carbon Dioxide Anion Gap BUN Creatinine Est GFR ( Amer) Est GFR (Non-Af Amer) POC Glucose (mg/dL) Random Glucose Calcium Phosphorus Magnesium Total Bilirubin AST ALT Alkaline Phosphatase Total Creatine Kinase CK-MB (Mass) Troponin I NT-Pro-B Natriuret Pep Total Protein Albumin Globulin Albumin/Globulin Ratio Arterial Blood Potassium Urine Color Urine Clarity Urine pH Ur Specific [place] Urine Protein Urine Glucose (UA) Urine Ketones Urine Blood Urine Nitrate Urine Bilirubin Urine Urobilinogen Ur Leukocyte Esterase Urine WBC (Auto) Urine RBC (Auto) Urine Bacteria Influenza Typ A,B (EIA) Negative for flu a/b 10/01/18 10/01/18 10/01/18 12:26 13:10 13:35 WBC RBC Hgb Hct MCV MCH MCHC RDW Plt Count MPV Neut % (Auto) Lymph % (Auto) Runnels % (Auto) Eos % (Auto) Baso % (Auto) Neut # (Auto) Lymph # (Auto) Runnels # (Auto) Eos # (Auto) Baso # (Auto) Neutrophils % (Manual) Band Neutrophils % Lymphocytes % (Manual) Reactive Lymphs % Monocytes % (Manual) Myelocytes % Hypersegmented Polys Smudge Cells Platelet Estimate Large Platelets Polychromasia Hypochromasia (manual) Poikilocytosis (manual Anisocytosis (manual) Microcytosis (manual) Spherocytes Ovalocytes PT INR APTT Puncture Site Rr pCO2 43 pO2 47 L HCO3 25.7 ABG pH 7.40 ABG Total CO2 27.9 ABG O2 Saturation 86.5 L ABG Base Excess 1.5 ABG Hemoglobin ABG Carboxyhemoglobin POC ABG HHb (Measured) ABG Methemoglobin Von Test Pos ABG Potassium 3.5 L A-a O2 Difference 149.0 Respiratory Index 3.2 Hgb O2 Saturation Glucose 125 H Lactate 2.7 H Liter Flow 40.0 Vent Mode High flow FiO2 35.0 Sodium 135 136.0 Potassium 4.7 Chloride 98 102.0 Carbon Dioxide 29 Anion Gap 13 BUN 21 H Creatinine 0.7 L Est GFR ( Amer) > 60 Est GFR (Non-Af Amer) > 60 POC Glucose (mg/dL) Random Glucose 129 H D Calcium 9.1 Phosphorus Magnesium Total Bilirubin 0.8 AST 74 H D ALT 60 Alkaline Phosphatase 78 Total Creatine Kinase 50 L CK-MB (Mass) 1.02 Troponin I 0.0280 NT-Pro-B Natriuret Pep 693 Total Protein 7.4 Albumin 4.8 Globulin 2.7 Albumin/Globulin Ratio 1.8 Arterial Blood Potassium 3.5 L Urine Color Yellow Urine Clarity Clear Urine pH 5.0 Ur Specific [place] 1.017 Urine Protein 1+ H Urine Glucose (UA) Normal Urine Ketones Negative Urine Blood 1+ H Urine Nitrate Negative Urine Bilirubin Negative Urine Urobilinogen Normal Ur Leukocyte Esterase Neg Urine WBC (Auto) < 1 Urine RBC (Auto) < 1 Urine Bacteria Rare Influenza Typ A,B (EIA) 10/01/18 10/01/18 10/01/18 17:17 17:33 18:12 WBC RBC Hgb Hct MCV MCH MCHC RDW Plt Count MPV Neut % (Auto) Lymph % (Auto) Runnels % (Auto) Eos % (Auto) Baso % (Auto) Neut # (Auto) Lymph # (Auto) Runnels # (Auto) Eos # (Auto) Baso # (Auto) Neutrophils % (Manual) Band Neutrophils % Lymphocytes % (Manual) Reactive Lymphs % Monocytes % (Manual) Myelocytes % Hypersegmented Polys Smudge Cells Platelet Estimate Large Platelets Polychromasia Hypochromasia (manual) Poikilocytosis (manual Anisocytosis (manual) Microcytosis (manual) Spherocytes Ovalocytes PT INR APTT Puncture Site Rra pCO2 42 pO2 103 H HCO3 26.8 ABG pH 7.42 ABG Total CO2 28.5 H ABG O2 Saturation 98.0 ABG Base Excess 2.4 ABG Hemoglobin ABG Carboxyhemoglobin POC ABG HHb (Measured) ABG Methemoglobin Von Test Pos ABG Potassium 2.9 L A-a O2 Difference 130.0 Respiratory Index 1.3 Hgb O2 Saturation Glucose 160 H Lactate 1.4 Liter Flow Vent Mode High flow FiO2 40.0 Sodium 137.0 135 Potassium 3.1 L Chloride 102.0 100 Carbon Dioxide 24 Anion Gap 14 BUN 22 H Creatinine 0.9 Est GFR ( Amer) > 60 Est GFR (Non-Af Amer) > 60 POC Glucose (mg/dL) 216 H Random Glucose 158 H D Calcium 8.4 L Phosphorus 2.8 Magnesium 1.6 Total Bilirubin 1.0 AST 64 H ALT 57 Alkaline Phosphatase 69 Total Creatine Kinase CK-MB (Mass) Troponin I 0.0690 NT-Pro-B Natriuret Pep Total Protein 6.5 Albumin 4.2 Globulin 2.3 Albumin/Globulin Ratio 1.9 Arterial Blood Potassium 2.9 L Urine Color Urine Clarity Urine pH Ur Specific [place] Urine Protein Urine Glucose (UA) Urine Ketones Urine Blood Urine Nitrate Urine Bilirubin Urine Urobilinogen Ur Leukocyte Esterase Urine WBC (Auto) Urine RBC (Auto) Urine Bacteria Influenza Typ A,B (EIA) 10/01/18 10/01/18 10/02/18 18:45 21:03 05:46 WBC 14.0 H RBC 4.19 L Hgb 12.3 Hct 38.1 MCV 90.9 MCH 29.3 MCHC 32.3 L RDW 14.7 H Plt Count 151 MPV 7.5 Neut % (Auto) 91.6 H Lymph % (Auto) 4.5 L Runnels % (Auto) 3.7 Eos % (Auto) 0.0 Baso % (Auto) 0.2 Neut # (Auto) 12.8 H Lymph # (Auto) 0.6 L R[place] # (Auto) 0.5 Eos # (Auto) 0.0 Baso # (Auto) 0.0 Neutrophils % (Manual) 81 H Band Neutrophils % 9 H Lymphocytes % (Manual) 4 L Reactive Lymphs % 1 H Monocytes % (Manual) 5 Myelocytes % Hypersegmented Polys Present Smudge Cells Present Platelet Estimate Decreased L Large Platelets Present Polychromasia Slight Hypochromasia (manual) Poikilocytosis (manual Slight Anisocytosis (manual) Slight Microcytosis (manual) Slight Spherocytes Slight Ovalocytes Slight PT INR APTT Puncture Site R rad pCO2 42 pO2 66 L HCO3 27.4 ABG pH 7.43 ABG Total CO2 29.2 H ABG O2 Saturation 96.0 ABG Base Excess 3.2 H ABG Hemoglobin 11.5 L ABG Carboxyhemoglobin 1.4 POC ABG HHb (Measured) 3.9 ABG Methemoglobin 0.6 Von Test Pos ABG Potassium A-a O2 Difference 131.0 Respiratory Index 2.0 Hgb O2 Saturation 94.1 L Glucose Lactate Liter Flow Vent Mode High-flow FiO2 35.0 Sodium Potassium Chloride Carbon Dioxide Anion Gap BUN Creatinine Est GFR ( Amer) Est GFR (Non-Af Amer) POC Glucose (mg/dL) 214 H Random Glucose Calcium Phosphorus Magnesium Total Bilirubin AST ALT Alkaline Phosphatase Total Creatine Kinase CK-MB (Mass) Troponin I NT-Pro-B Natriuret Pep Total Protein Albumin Globulin Albumin/Globulin Ratio Arterial Blood Potassium Urine Color Urine Clarity Urine pH Ur Specific [place] Urine Protein Urine Glucose (UA) Urine Ketones Urine Blood Urine Nitrate Urine Bilirubin Urine Urobilinogen Ur Leukocyte Esterase Urine WBC (Auto) Urine RBC (Auto) Urine Bacteria Influenza Typ A,B (EIA) 10/02/18 10/02/18 10/02/18 06:22 06:22 07:16 WBC 15.8 H RBC 4.12 L Hgb 12.1 Hct 37.4 MCV 90.8 MCH 29.3 MCHC 32.3 L RDW 14.4 Plt Count 135 MPV 7.9 Neut % (Auto) 89.2 H Lymph % (Auto) 5.0 L Runnels % (Auto) 5.7 Eos % (Auto) 0.0 Baso % (Auto) 0.1 Neut # (Auto) 14.1 H Lymph # (Auto) 0.8 L R[place] # (Auto) 0.9 H Eos # (Auto) 0.0 Baso # (Auto) 0.0 Neutrophils % (Manual) 67 Band Neutrophils % 23 H* Lymphocytes % (Manual) 3 L Reactive Lymphs % Monocytes % (Manual) 6 Myelocytes % 1 H Hypersegmented Polys Smudge Cells Platelet Estimate Normal Large Platelets Polychromasia Hypochromasia (manual) Slight Poikilocytosis (manual Anisocytosis (manual) Microcytosis (manual) Spherocytes Ovalocytes PT INR APTT Puncture Site pCO2 pO2 HCO3 ABG pH ABG Total CO2 ABG O2 Saturation ABG Base Excess ABG Hemoglobin ABG Carboxyhemoglobin POC ABG HHb (Measured) ABG Methemoglobin Von Test ABG Potassium A-a O2 Difference Respiratory Index Hgb O2 Saturation Glucose Lactate Liter Flow Vent Mode FiO2 Sodium 136 Potassium 4.1 Chloride 101 Carbon Dioxide 24 Anion Gap 15 BUN 19 Creatinine 0.7 L Est GFR ( Amer) > 60 Est GFR (Non-Af Amer) > 60 POC Glucose (mg/dL) 171 H Random Glucose 173 H Calcium 8.6 Phosphorus Magnesium Total Bilirubin AST ALT Alkaline Phosphatase Total Creatine Kinase CK-MB (Mass) Troponin I NT-Pro-B Natriuret Pep Total Protein Albumin Globulin Albumin/Globulin Ratio Arterial Blood Potassium Urine Color Urine Clarity Urine pH Ur Specific [place] Urine Protein Urine Glucose (UA) Urine Ketones Urine Blood Urine Nitrate Urine Bilirubin Urine Urobilinogen Ur Leukocyte Esterase Urine WBC (Auto) Urine RBC (Auto) Urine Bacteria Influenza Typ A,B (EIA) Assessment & Plan - Assessment and Plan (Free Text) Assessment: Patient is a 58 year old male with pmhx of COPD, Bladder CA, CHF, DM, HTN, peripheral edema, TONIO, alcohol/substancer abuse, chronic b/l hip pain was brought to the ED for shortness of breath, in ED with respiratory distress, refused bipap and intubation, on high flow O2 at this time, with left leg cellulitis, elevated lactate and wbc on ED labs. elevated temperature at 104F, on cooling blanket, give abx for possible celullitis coverage. Plan: 1. Shorntess of breath unlikely CHF. Continue to monitor and medically treat hypertension. Rule out pulmonary embolism. Chest ct: No large, central pulmonary emboli. Limitations of the current examination: Nondiagnostic study beyond the lobar branches. Poor opacification of main and peripheral pulmonary arterial branches -s/p respiratory distress in the E.D. -Patient refusing Intubation and BiPAP for treatment and on HiFlow Troponin (-)x 2 D-dimer ordered. Will f/u with results CT-Angio ordered. Will f/u with results. Medications: Duoneb 3ml INH rq6 quin Solu-medrol 40mg IVP Q8H QUIN 2. Hypertension Coreg 3.125mg PO BID QUIN Cozaar 100mg PO Daily quin 3. DM ISS 4.Celluitis Vancomycin 1gm Q12 IVPB Aztreonam 2gm q8 ivpb Doxycycline 100mg ivpb q12 quin 5. Insomnia Zolpidem 5 mg PO HS ppx -Lovenox -Protonix Plan discussed with Dr. Cardenas. Michael Alba, PGY-2 <Rafael Cardenas - Last Filed: 10/02/18 22:41> Meds - Medications Medications: Current Medications Acetaminophen (Tylenol 650mg/20.3ml Solution Ud) 650 mg PO Q6 PRN PRN Reason: Temperature Last Admin: 10/02/18 18:26 Dose: 650 mg Albuterol/Ipratropium (Duoneb 3 Mg/0.5 Mg (3 Ml) Ud) 3 ml INH RQ6 QUIN Last Admin: 10/02/18 19:29 Dose: Not Given Alprazolam (Xanax) 0.25 mg PO HS [facility] Stop: 10/08/18 22:01 Last Admin: 10/01/18 23:43 Dose: 0.25 mg Aspirin (Ecotrin) 81 mg PO DAILY [facility] Last Admin: 10/02/18 18:26 Dose: 81 mg Carvedilol (Coreg) 3.125 mg PO BID [facility] Last Admin: 10/02/18 18:28 Dose: 3.125 mg Dextrose (Dextrose 50% Inj) 0 ml IV STAT PRN; Protocol PRN Reason: Hypoglycemia Protocol Dextrose (Glutose 15) 0 gm PO ONCE PRN; Protocol PRN Reason: Hypoglycemia Protocol Enoxaparin Sodium (Lovenox) 100 mg SC Q12 [facility] Glucagon (Glucagen Diagnostic Kit) 0 mg IM STAT PRN; Protocol PRN Reason: Hypoglycemia Protocol Sodium Chloride (Sodium Chloride 0.9%) 1,000 mls @ 100 mls/hr IV .Q10H [facility] Last Admin: 10/02/18 20:39 Dose: Not Given Doxycycline Hyclate 100 mg/ (Sodium Chloride) 100 mls @ 100 mls/hr IVPB Q12H [facility]; Protocol Last Admin: 10/02/18 15:52 Dose: 100 mls/hr Vancomycin/Sodium Chloride (Vancomycin 1 Gm/Ns 200 Ml) 1 gm in 200 mls @ 133 mls/hr IVPB Q12H [facility]; Protocol Stop: 10/07/18 02:01 Last Admin: 10/02/18 14:35 Dose: 133 mls/hr Dextrose (Dextrose 5% In Water 1000 Ml) 1,000 mls @ 0 mls/hr IV .Q0M PRN; Protocol PRN Reason: Hypoglycemia Protocol Aztreonam 2 gm/ Sodium (Chloride) 100 mls @ 200 mls/hr IVPB Q8H [facility]; Protocol Last Admin: 10/02/18 13:40 Dose: 200 mls/hr Influenza Virus Vaccine (Flucelvax Quad [id number] Syr) 60 mcg IM .ONCE ONE Stop: 10/03/18 10:01 Insulin Human Regular (Novolin R) 0 unit SC ACHS [facility]; Protocol Last Admin: 10/02/18 21:46 Dose: Not Given Losartan Potassium (Cozaar) 100 mg PO DAILY [facility] Last Admin: 10/02/18 11:20 Dose: Not Given Methylprednisolone (Solu-Medrol) 40 mg IVP Q8H [facility] Last Admin: 10/02/18 15:56 Dose: 40 mg Oxycodone HCl (Oxycontin Extended Release Tab) 10 mg PO Q8H [facility] Stop: 10/04/18 19:01 Last Admin: 10/02/18 18:26 Dose: 10 mg Oxycodone/Acetaminophen (Percocet 5/325 Mg Tab) 1 tab PO Q6H PRN PRN Reason: Pain, severe (8-10) Stop: 10/04/18 16:10 Last Admin: 10/02/18 10:15 Dose: 1 tab Pantoprazole Sodium (Protonix Inj) 40 mg IVP DAILY [facility] Last Admin: 10/02/18 10:14 Dose: 40 mg Zolpidem Tartrate (Ambien) 5 mg PO HS PRN PRN Reason: Insomnia Last Admin: 10/02/18 01:46 Dose: 5 mg Results - Vital Signs Recent Vital Signs: Last Vital Signs Temp 99.0 F 10/02/18 20:00 Pulse 92 H 10/02/18 22:08 Resp 24 10/02/18 22:00 BP 129/75 10/02/18 21:40 Pulse Ox 98 01/29/19 22:00 - Labs Result Diagrams: 10/02/18 06:22 10/02/18 06:22 Labs: Laboratory Results - last 24 hr 10/02/18 10/02/18 10/02/18 05:46 06:22 06:22 WBC 15.8 H RBC 4.12 L Hgb 12.1 Hct 37.4 MCV 90.8 MCH 29.3 MCHC 32.3 L RDW 14.4 Plt Count 135 MPV 7.9 Neut % (Auto) 89.2 H Lymph % (Auto) 5.0 L [place] % (Auto) 5.7 Eos % (Auto) 0.0 Baso % (Auto) 0.1 Neut # (Auto) 14.1 H Lymph # (Auto) 0.8 L [place] # (Auto) 0.9 H Eos # (Auto) 0.0 Baso # (Auto) 0.0 Neutrophils % (Manual) 67 Band Neutrophils % 23 H* Lymphocytes % (Manual) 3 L Monocytes % (Manual) 6 Myelocytes % 1 H Platelet Estimate Normal Hypochromasia (manual) Slight D-Dimer, Quantitative Puncture Site R rad pCO2 42 pO2 66 L HCO3 27.4 ABG pH 7.43 ABG Total CO2 29.2 H ABG O2 Saturation 96.0 ABG Base Excess 3.2 H ABG Hemoglobin 11.5 L ABG Carboxyhemoglobin 1.4 POC ABG HHb (Measured) 3.9 ABG Methemoglobin 0.6 Von Test Pos ABG Potassium A-a O2 Difference 131.0 Respiratory Index 2.0 Hgb O2 Saturation 94.1 L Glucose Lactate Vent Mode High-flow FiO2 35.0 Inspiratory BiPAP Expiratory BiPAP Sodium 136 Potassium 4.1 Chloride 101 Carbon Dioxide 24 Anion Gap 15 BUN 19 Creatinine 0.7 L Est GFR ( Amer) > 60 Est GFR (Non-Af Amer) > 60 POC Glucose (mg/dL) Random Glucose 173 H Calcium 8.6 Arterial Blood Potassium 10/02/18 10/02/18 10/02/18 07:16 11:16 11:39 WBC RBC Hgb Hct MCV MCH MCHC RDW Plt Count MPV Neut % (Auto) Lymph % (Auto) R[place]els % (Auto) Eos % (Auto) Baso % (Auto) Neut # (Auto) Lymph # (Auto) R[place] # (Auto) Eos # (Auto) Baso # (Auto) Neutrophils % (Manual) Band Neutrophils % Lymphocytes % (Manual) Monocytes % (Manual) Myelocytes % Platelet Estimate Hypochromasia (manual) D-Dimer, Quantitative 604 H Puncture Site pCO2 pO2 HCO3 ABG pH ABG Total CO2 ABG O2 Saturation ABG Base Excess ABG Hemoglobin ABG Carboxyhemoglobin POC ABG HHb (Measured) ABG Methemoglobin Von Test ABG Potassium A-a O2 Difference Respiratory Index Hgb O2 Saturation Glucose Lactate Vent Mode FiO2 Inspiratory BiPAP Expiratory BiPAP Sodium Potassium Chloride Carbon Dioxide Anion Gap BUN Creatinine Est GFR ( Amer) Est GFR (Non-Af Amer) POC Glucose (mg/dL) 171 H 136 H Random Glucose Calcium Arterial Blood Potassium 10/02/18 10/02/18 10/02/18 16:04 21:20 22:00 WBC RBC Hgb Hct MCV MCH MCHC RDW Plt Count MPV Neut % (Auto) Lymph % (Auto) Runnels % (Auto) Eos % (Auto) Baso % (Auto) Neut # (Auto) Lymph # (Auto) R[place] # (Auto) Eos # (Auto) Baso # (Auto) Neutrophils % (Manual) Band Neutrophils % Lymphocytes % (Manual) Monocytes % (Manual) Myelocytes % Platelet Estimate Hypochromasia (manual) D-Dimer, Quantitative Puncture Site Rr pCO2 47 H pO2 306 H HCO3 24.4 ABG pH 7.34 L ABG Total CO2 26.8 ABG O2 Saturation 98.6 H ABG Base Excess -0.8 ABG Hemoglobin ABG Carboxyhemoglobin POC ABG HHb (Measured) ABG Methemoglobin Von Test Po ABG Potassium 3.5 L A-a O2 Difference 134.0 Respiratory Index 0.4 Hgb O2 Saturation Glucose 155 H Lactate 1.0 Vent Mode Bipap FiO2 70.0 Inspiratory BiPAP 16 Expiratory BiPAP 5 Sodium 144.0 Potassium Chloride 113.0 H Carbon Dioxide Anion Gap BUN Creatinine Est GFR ( Amer) Est GFR (Non-Af Amer) POC Glucose (mg/dL) 207 H 157 H Random Glucose Calcium Arterial Blood Potassium 3.5 L Assessment & Plan - Assessment and Plan (Free Text) Plan: Patient seen and evaluated personally by me. Plan of care d/w the medical receptionist assistant and as documented
[2018-10-02] MEDS ORDERED: Enoxaparin 40 mg Syringe SC SCH ×2 (10:00→18:00)
--- NOTE | 2018-10-02 11:04 | VASCLAB ---
Date of service: 10/01/2018 PROCEDURE: Lower Extremity Venous Duplex Exam. HISTORY: presents with cellulitis PRIORS: None. TECHNIQUE: Bilateral common femoral, femoral, popliteal and posterior tibial, peroneal and great saphenous veins were evaluated. Flow was assessed with color Doppler, compressibility, assessment of phasic flow and augmentation response. Report prepared by Jamari Flores, BS, RVT FINDINGS: RIGHT: 1. Common Femoral Vein: 1.1. Compressibility - Fully compressible: Thrombus - None : Flow - Phasic: Augmentation -Normal: Reflux - None. 2. Femoral Vein: 2.1. Compressibility - Fully compressible: Thrombus - None : Flow - Phasic: Augmentation -Normal: Reflux - None. 3. Popliteal Vein: 3.1. Compressibility - Fully compressible: Thrombus - None : Flow - Phasic: Augmentation -Normal: Reflux - None. 4. Posterior Tibial Vein: 4.1. Compressibility - Fully compressible: Thrombus - None: Flow - Phasic: Augmentation -Normal: Reflux - None. 5. Peroneal Vein: 5.1. Compressibility - Fully compressible: Thrombus - None: Flow - Phasic: Augmentation -Normal: Reflux - None. 6. Great Saphenous Vein: 6.1. Compressibility - Fully compressible: Thrombus - None: Flow - Phasic: Augmentation - Normal: Reflux - None. LEFT: 1. Common Femoral Vein: 1.1. Compressibility - Fully compressible: Thrombus - None: Flow - Phasic: Augmentation -Normal: Reflux - None. 2. Femoral Vein: 2.1. Compressibility - Fully compressible: Thrombus - None: Flow - Phasic: Augmentation -Normal: Reflux - None. 3. Popliteal Vein: 3.1. Compressibility - Fully compressible: Thrombus - None : Flow - Phasic: Augmentation -Normal: Reflux - None. 4. Posterior Tibial Vein: 4.1. Compressibility - : Thrombus - : Flow - : Augmentation -: Reflux - . 5. Peroneal Vein: 5.1. Compressibility - : Thrombus - : Flow - : Augmentation -l: Reflux - . 6. Great Saphenous Vein: 6.1. Compressibility - Fully compressible: Thrombus - None: Flow - Phasic: Augmentation - Normal: Reflux - None. OTHER FINDINGS: Right: None significant. Left: Due to swelling in the calf, the left peroneal and posterior tibial vein are not visualized. IMPRESSION: Right: No evidence of deep or superficial vein thrombosis of the right lower extremity. Normal valve function noted of the right side. Left: No evidence of deep or superficial vein thrombosis of the left lower extremity. Normal valve function noted of the left side.
[2018-10-02] MEDS: Aztreonam 2 GM in Sodium Chloride 0.9% 100 ML IVPB SCH ×2 (13:40→23:22)
--- NOTE | 2018-10-02 13:56 | CP.CCUPN ---
<Romel Ge - Last Filed: 10/02/18 18:17> CCU Subjective - Physician Review Subjective (Free Text): PGY-1 ICU progress note for Dr Shah service Patient is seen and examined at bedside. Patient complaints of pain in bilateral legs and hips, and states feels anxious at times. denies shortness of breath or chest pain, states feeling a bit warm. Critical Care Time Spent (in minutes): 35 CCU Objective - Vital Signs / Intake & Output Vital Signs (Last 4 hours): Vital Signs Temp Resp 10/02/18 13:43 20 10/02/18 12:32 101 F H 10/02/18 11:32 1402.4 F H 10/02/18 11:24 20 Intake and Output (Last 8hrs): Intake & Output 10/01/18 10/02/18 10/02/18 22:59 06:59 14:59 Intake Total 1050.0 900 100 Output Total 1300 1800 Balance -250 -900 100 Weight 222 lb 6.4 oz 221 lb 8 oz Intake: Intake, IV Amount 900.0 900 100 Left Hand 300.0 Left Upper arm 600 900 100 Oral 150 Output: Urine 1300 1800 Urine, Voided 1300 1800 Other: Voiding Method Incontinent # Voids Urine, Voided 1 - Physical Exam Head: Positive for: Atraumatic, Normocephalic Pupils: Positive for: PERRL Extroacular Muscles: Positive for: EOMI Conjunctiva: Positive for: Normal Mouth: Positive for: Moist Mucous Membranes Neck: Positive for: Normal Range of Motion Respiratory/Chest: Positive for: Wheezes (bilateral ) Cardiovascular: Positive for: Normal S1, S2, Tachycardic Abdomen: Positive for: Distention, Normal Bowel Sounds Upper Extremity: Positive for: Normal Inspection Lower Extremity: Positive for: Edema, Other (left leg erythema, oozing from left leg, open wound from ruptured blister ) Neurological: Positive for: Speech Normal Skin: Positive for: Warm, Dry, Normal Color Psychiatric: Positive for: Alert - Medications Active Medications: Active Medications Generic Name Dose Route Start Last Admin Trade Name Freq PRN Reason Stop Dose Admin Acetaminophen 650 mg 10/01/18 21:40 10/02/18 11:32 Tylenol 650mg/20.3ml Solution Ud PO 650 mg Q6 PRN Administration Temperature Albuterol/Ipratropium 3 ml 10/01/18 20:00 10/02/18 13:43 Duoneb 3 Mg/0.5 Mg (3 Ml) Ud INH Not Given RQ6 SANDRA Alprazolam 0.25 mg 10/01/18 22:00 10/01/18 23:43 Xanax PO 10/08/18 22:01 0.25 mg HS SANDRA Administration Carvedilol 3.125 mg 10/02/18 08:45 10/02/18 11:20 Coreg PO Not Given BID SANDRA Dextrose 0 ml 10/01/18 19:11 Dextrose 50% Inj IV STAT PRN Hypoglycemia Protocol Protocol Dextrose 0 gm 10/01/18 19:11 Glutose 15 PO ONCE PRN Hypoglycemia Protocol Protocol Enoxaparin Sodium 40 mg 10/02/18 10:00 10/02/18 10:14 Lovenox SC 40 mg DAILY SANDRA Administration Glucagon 0 mg 10/01/18 19:11 Glucagen Diagnostic Kit IM STAT PRN Hypoglycemia Protocol Protocol Sodium Chloride 1,000 mls @ 100 mls/hr 10/01/18 15:00 10/02/18 04:57 Sodium Chloride 0.9% IV 100 mls/hr .Q10H SANDRA Administration Doxycycline Hyclate 100 mg/ 100 mls @ 100 mls/hr 10/01/18 16:00 10/02/18 03:15 Sodium Chloride IVPB 100 mls/hr Q12H SANDRA Administration Protocol Vancomycin/Sodium Chloride 1 gm in 200 mls @ 133 mls/hr 10/02/18 02:00 10/02/18 01:10 Vancomycin 1 Gm/Ns 200 Ml IVPB 10/07/18 02:01 133 mls/hr Q12H SANDRA Administration Protocol Dextrose 1,000 mls @ 0 mls/hr 10/01/18 19:11 Dextrose 5% In Water 1000 Ml IV .Q0M PRN Hypoglycemia Protocol Protocol Per Protocol Aztreonam 2 gm/ Sodium 100 mls @ 200 mls/hr 10/02/18 14:00 10/02/18 13:40 Chloride IVPB 200 mls/hr Q8H SANDRA Administration Protocol Influenza Virus Vaccine 60 mcg 10/03/18 10:00 Flucelvax Quad [id number] Syr IM 10/03/18 10:01 .ONCE ONE Insulin Human Regular 0 unit 10/01/18 22:00 10/02/18 11:30 Novolin R SC Not Given ACHS [facility] Protocol Losartan Potassium 100 mg 10/02/18 08:45 10/02/18 11:20 Cozaar PO Not Given DAILY SANDRA Methylprednisolone 40 mg 10/01/18 16:00 10/02/18 07:46 Solu-Medrol IVP 40 mg Q8H SANDRA Administration Oxycodone HCl 10 mg 10/01/18 19:00 10/02/18 11:30 Oxycontin Extended Release Tab PO 10/04/18 19:01 10 mg Q8H SANDRA Administration Oxycodone/Acetaminophen 1 tab 10/01/18 16:09 10/02/18 10:15 Percocet 5/325 Mg Tab PO 10/04/18 16:10 1 tab Q6H PRN Administration Pain, severe (8-10) Pantoprazole Sodium 40 mg 10/01/18 16:00 10/02/18 10:14 Protonix Inj IVP 40 mg DAILY SANDRA Administration Zolpidem Tartrate 5 mg 10/02/18 01:16 10/02/18 01:46 Ambien PO 5 mg HS PRN Administration Insomnia - Patient Studies Lab Studies: Microbiology Studies 10/01/18 12:24 Blood Culture - Preliminary Blood NO GROWTH AFTER 24 HOURS 10/01/18 12:21 Blood Culture - Preliminary Blood NO GROWTH AFTER 24 HOURS 10/01/18 13:10 Urine Culture - Final Urine Random No Growth (<1,000 CFU/ML) Lab Studies 10/02/18 10/02/18 10/02/18 Range/Units 11:39 07:16 06:22 WBC (4.8-10.8) K/uL RBC (4.40-5.90) Mil/uL Hgb (12.0-18.0) g/dL Hct (35.0-51.0) % MCV (80.0-94.0) fL MCH (27.0-31.0) pg MCHC (33.0-37.0) g/dL RDW (11.5-14.5) % Plt Count (130-400) K/uL MPV (7.2-11.7) fL Neut % (Auto) (50.0-75.0) % Lymph % (Auto) (20.0-40.0) % Bond % (Auto) (0.0-10.0) % Eos % (Auto) (0.0-4.0) % Baso % (Auto) (0.0-2.0) % Neut # (Auto) (1.8-7.0) K/uL Lymph # (Auto) (1.0-4.3) K/uL Bond # (Auto) (0.0-0.8) K/uL Eos # (Auto) (0.0-0.7) K/uL Baso # (Auto) (0.0-0.2) K/uL Neutrophils % (Manual) (50-75) % Band Neutrophils % (0-2) % Lymphocytes % (Manual) (20-40) % Reactive Lymphs % (0-0) % Monocytes % (Manual) (0-10) % Myelocytes % (0-0) % Hypersegmented Polys Smudge Cells Platelet Estimate (NORMAL) Large Platelets Polychromasia Hypochromasia (manual) Poikilocytosis (manual Anisocytosis (manual) Microcytosis (manual) Spherocytes Ovalocytes D-Dimer, Quantitative 604 H (0-243) ng/mlDDU Puncture Site pCO2 (35-45) mm/Hg pO2 (80-100) mm/Hg HCO3 (21-28) mmol/L ABG pH (7.35-7.45) ABG Total CO2 (22-28) mmol/L ABG O2 Saturation (95-98) % ABG Base Excess (-2.0-3.0) mmol/L ABG Hemoglobin (11.7-17.4) g/dL ABG Carboxyhemoglobin (0.5-1.5) % POC ABG HHb (Measured) (0.0-5.0) % ABG Methemoglobin (0.0-3.0) % Von Test ABG Potassium (3.6-5.2) mmol/L A-a O2 Difference mm/Hg Respiratory Index Hgb O2 Saturation (95.0-98.0) % Sodium 136 (132-148) mmol/l Chloride 101 (98-107) mmol/L Glucose (75-110) mg/dl Lactate (0.7-2.1) mmol/L Vent Mode FiO2 % Potassium 4.1 (3.6-5.2) mmol/L Carbon Dioxide 24 (22-30) mmol/L Anion Gap 15 (10-20) BUN 19 (9-20) mg/dL Creatinine 0.7 L (0.8-1.5) mg/dL Est GFR ( Amer) > 60 Est GFR (Non-Af Amer) > 60 POC Glucose (mg/dL) 171 H (65-110) mg/dL Random Glucose 173 H (75-110) mg/dL Calcium 8.6 (8.6-10.4) mg/dl Phosphorus (2.5-4.5) mg/dL Magnesium (1.6-2.3) mg/dL Total Bilirubin (0.2-1.3) mg/dL AST (17-59) U/L ALT (21-72) U/L Alkaline Phosphatase (38-126) U/L Troponin I (0.00-0.120) ng/mL Total Protein (6.3-8.3) g/dL Albumin (3.5-5.0) g/dL Globulin (2.2-3.9) gm/dL Albumin/Globulin Ratio (1.0-2.1) Arterial Blood Potassium (3.6-5.2) mmol/L 10/02/18 10/02/18 10/01/18 Range/Units 06:22 05:46 21:03 WBC 15.8 H (4.8-10.8) K/uL RBC 4.12 L (4.40-5.90) Mil/uL Hgb 12.1 (12.0-18.0) g/dL Hct 37.4 (35.0-51.0) % MCV 90.8 (80.0-94.0) fL MCH 29.3 (27.0-31.0) pg MCHC 32.3 L (33.0-37.0) g/dL RDW 14.4 (11.5-14.5) % Plt Count 135 (130-400) K/uL MPV 7.9 (7.2-11.7) fL Neut % (Auto) 89.2 H (50.0-75.0) % Lymph % (Auto) 5.0 L (20.0-40.0) % Bond % (Auto) 5.7 (0.0-10.0) % Eos % (Auto) 0.0 (0.0-4.0) % Baso % (Auto) 0.1 (0.0-2.0) % Neut # (Auto) 14.1 H (1.8-7.0) K/uL Lymph # (Auto) 0.8 L (1.0-4.3) K/uL Bond # (Auto) 0.9 H (0.0-0.8) K/uL Eos # (Auto) 0.0 (0.0-0.7) K/uL Baso # (Auto) 0.0 (0.0-0.2) K/uL Neutrophils % (Manual) 67 (50-75) % Band Neutrophils % 23 H* (0-2) % Lymphocytes % (Manual) 3 L (20-40) % Reactive Lymphs % (0-0) % Monocytes % (Manual) 6 (0-10) % Myelocytes % 1 H (0-0) % Hypersegmented Polys Smudge Cells Platelet Estimate Normal (NORMAL) Large Platelets Polychromasia Hypochromasia (manual) Slight Poikilocytosis (manual Anisocytosis (manual) Microcytosis (manual) Spherocytes Ovalocytes D-Dimer, Quantitative (0-243) ng/mlDDU Puncture Site R rad pCO2 42 (35-45) mm/Hg pO2 66 L (80-100) mm/Hg HCO3 27.4 (21-28) mmol/L ABG pH 7.43 (7.35-7.45) ABG Total CO2 29.2 H (22-28) mmol/L ABG O2 Saturation 96.0 (95-98) % ABG Base Excess 3.2 H (-2.0-3.0) mmol/L ABG Hemoglobin 11.5 L (11.7-17.4) g/dL ABG Carboxyhemoglobin 1.4 (0.5-1.5) % POC ABG HHb (Measured) 3.9 (0.0-5.0) % ABG Methemoglobin 0.6 (0.0-3.0) % Von Test Pos ABG Potassium (3.6-5.2) mmol/L A-a O2 Difference 131.0 mm/Hg Respiratory Index 2.0 Hgb O2 Saturation 94.1 L (95.0-98.0) % Sodium (132-148) mmol/l Chloride (98-107) mmol/L Glucose (75-110) mg/dl Lactate (0.7-2.1) mmol/L Vent Mode High-flow FiO2 35.0 % Potassium (3.6-5.2) mmol/L Carbon Dioxide (22-30) mmol/L Anion Gap (10-20) BUN (9-20) mg/dL Creatinine (0.8-1.5) mg/dL Est GFR ( Amer) Est GFR (Non-Af Amer) POC Glucose (mg/dL) 214 H (65-110) mg/dL Random Glucose (75-110) mg/dL Calcium (8.6-10.4) mg/dl Phosphorus (2.5-4.5) mg/dL Magnesium (1.6-2.3) mg/dL Total Bilirubin (0.2-1.3) mg/dL AST (17-59) U/L ALT (21-72) U/L Alkaline Phosphatase (38-126) U/L Troponin I (0.00-0.120) ng/mL Total Protein (6.3-8.3) g/dL Albumin (3.5-5.0) g/dL Globulin (2.2-3.9) gm/dL Albumin/Globulin Ratio (1.0-2.1) Arterial Blood Potassium (3.6-5.2) mmol/L 10/01/18 10/01/18 10/01/18 Range/Units 18:45 18:12 17:33 WBC 14.0 H (4.8-10.8) K/uL RBC 4.19 L (4.40-5.90) Mil/uL Hgb 12.3 (12.0-18.0) g/dL Hct 38.1 (35.0-51.0) % MCV 90.9 (80.0-94.0) fL MCH 29.3 (27.0-31.0) pg MCHC 32.3 L (33.0-37.0) g/dL RDW 14.7 H (11.5-14.5) % Plt Count 151 (130-400) K/uL MPV 7.5 (7.2-11.7) fL Neut % (Auto) 91.6 H (50.0-75.0) % Lymph % (Auto) 4.5 L (20.0-40.0) % Bond % (Auto) 3.7 (0.0-10.0) % Eos % (Auto) 0.0 (0.0-4.0) % Baso % (Auto) 0.2 (0.0-2.0) % Neut # (Auto) 12.8 H (1.8-7.0) K/uL Lymph # (Auto) 0.6 L (1.0-4.3) K/uL Bond # (Auto) 0.5 (0.0-0.8) K/uL Eos # (Auto) 0.0 (0.0-0.7) K/uL Baso # (Auto) 0.0 (0.0-0.2) K/uL Neutrophils % (Manual) 81 H (50-75) % Band Neutrophils % 9 H (0-2) % Lymphocytes % (Manual) 4 L (20-40) % Reactive Lymphs % 1 H (0-0) % Monocytes % (Manual) 5 (0-10) % Myelocytes % (0-0) % Hypersegmented Polys Present Smudge Cells Present Platelet Estimate Decreased L (NORMAL) Large Platelets Present Polychromasia Slight Hypochromasia (manual) Poikilocytosis (manual Slight Anisocytosis (manual) Slight Microcytosis (manual) Slight Spherocytes Slight Ovalocytes Slight D-Dimer, Quantitative (0-243) ng/mlDDU Puncture Site pCO2 (35-45) mm/Hg pO2 (80-100) mm/Hg HCO3 (21-28) mmol/L ABG pH (7.35-7.45) ABG Total CO2 (22-28) mmol/L ABG O2 Saturation (95-98) % ABG Base Excess (-2.0-3.0) mmol/L ABG Hemoglobin (11.7-17.4) g/dL ABG Carboxyhemoglobin (0.5-1.5) % POC ABG HHb (Measured) (0.0-5.0) % ABG Methemoglobin (0.0-3.0) % Von Test ABG Potassium (3.6-5.2) mmol/L A-a O2 Difference mm/Hg Respiratory Index Hgb O2 Saturation (95.0-98.0) % Sodium 135 (132-148) mmol/l Chloride 100 (98-107) mmol/L Glucose (75-110) mg/dl Lactate (0.7-2.1) mmol/L Vent Mode FiO2 % Potassium 3.1 L (3.6-5.2) mmol/L Carbon Dioxide 24 (22-30) mmol/L Anion Gap 14 (10-20) BUN 22 H (9-20) mg/dL Creatinine 0.9 (0.8-1.5) mg/dL Est GFR ( Amer) > 60 Est GFR (Non-Af Amer) > 60 POC Glucose (mg/dL) 216 H (65-110) mg/dL Random Glucose 158 H D (75-110) mg/dL Calcium 8.4 L (8.6-10.4) mg/dl Phosphorus 2.8 (2.5-4.5) mg/dL Magnesium 1.6 (1.6-2.3) mg/dL Total Bilirubin 1.0 (0.2-1.3) mg/dL AST 64 H (17-59) U/L ALT 57 (21-72) U/L Alkaline Phosphatase 69 (38-126) U/L Troponin I 0.0690 (0.00-0.120) ng/mL Total Protein 6.5 (6.3-8.3) g/dL Albumin 4.2 (3.5-5.0) g/dL Globulin 2.3 (2.2-3.9) gm/dL Albumin/Globulin Ratio 1.9 (1.0-2.1) Arterial Blood Potassium (3.6-5.2) mmol/L 10/01/18 Range/Units 17:17 WBC (4.8-10.8) K/uL RBC (4.40-5.90) Mil/uL Hgb (12.0-18.0) g/dL Hct (35.0-51.0) % MCV (80.0-94.0) fL MCH (27.0-31.0) pg MCHC (33.0-37.0) g/dL RDW (11.5-14.5) % Plt Count (130-400) K/uL MPV (7.2-11.7) fL Neut % (Auto) (50.0-75.0) % Lymph % (Auto) (20.0-40.0) % Bond % (Auto) (0.0-10.0) % Eos % (Auto) (0.0-4.0) % Baso % (Auto) (0.0-2.0) % Neut # (Auto) (1.8-7.0) K/uL Lymph # (Auto) (1.0-4.3) K/uL Bond # (Auto) (0.0-0.8) K/uL Eos # (Auto) (0.0-0.7) K/uL Baso # (Auto) (0.0-0.2) K/uL Neutrophils % (Manual) (50-75) % Band Neutrophils % (0-2) % Lymphocytes % (Manual) (20-40) % Reactive Lymphs % (0-0) % Monocytes % (Manual) (0-10) % Myelocytes % (0-0) % Hypersegmented Polys Smudge Cells Platelet Estimate (NORMAL) Large Platelets Polychromasia Hypochromasia (manual) Poikilocytosis (manual Anisocytosis (manual) Microcytosis (manual) Spherocytes Ovalocytes D-Dimer, Quantitative (0-243) ng/mlDDU Puncture Site Rra pCO2 42 (35-45) mm/Hg pO2 103 H (80-100) mm/Hg HCO3 26.8 (21-28) mmol/L ABG pH 7.42 (7.35-7.45) ABG Total CO2 28.5 H (22-28) mmol/L ABG O2 Saturation 98.0 (95-98) % ABG Base Excess 2.4 (-2.0-3.0) mmol/L ABG Hemoglobin (11.7-17.4) g/dL ABG Carboxyhemoglobin (0.5-1.5) % POC ABG HHb (Measured) (0.0-5.0) % ABG Methemoglobin (0.0-3.0) % Von Test Pos ABG Potassium 2.9 L (3.6-5.2) mmol/L A-a O2 Difference 130.0 mm/Hg Respiratory Index 1.3 Hgb O2 Saturation (95.0-98.0) % Sodium 137.0 (132-148) mmol/l Chloride 102.0 (98-107) mmol/L Glucose 160 H (75-110) mg/dl Lactate 1.4 (0.7-2.1) mmol/L Vent Mode High flow FiO2 40.0 % Potassium (3.6-5.2) mmol/L Carbon Dioxide (22-30) mmol/L Anion Gap (10-20) BUN (9-20) mg/dL Creatinine (0.8-1.5) mg/dL Est GFR ( Amer) Est GFR (Non-Af Amer) POC Glucose (mg/dL) (65-110) mg/dL Random Glucose (75-110) mg/dL Calcium (8.6-10.4) mg/dl Phosphorus (2.5-4.5) mg/dL Magnesium (1.6-2.3) mg/dL Total Bilirubin (0.2-1.3) mg/dL AST (17-59) U/L ALT (21-72) U/L Alkaline Phosphatase (38-126) U/L Troponin I (0.00-0.120) ng/mL Total Protein (6.3-8.3) g/dL Albumin (3.5-5.0) g/dL Globulin (2.2-3.9) gm/dL Albumin/Globulin Ratio (1.0-2.1) Arterial Blood Potassium 2.9 L (3.6-5.2) mmol/L Laboratory Results - last 24 hr 10/01/18 10/01/18 10/01/18 17:17 17:33 18:12 WBC RBC Hgb Hct MCV MCH MCHC RDW Plt Count MPV Neut % (Auto) Lymph % (Auto) Bond % (Auto) Eos % (Auto) Baso % (Auto) Neut # (Auto) Lymph # (Auto) Bond # (Auto) Eos # (Auto) Baso # (Auto) Neutrophils % (Manual) Band Neutrophils % Lymphocytes % (Manual) Reactive Lymphs % Monocytes % (Manual) Myelocytes % Hypersegmented Polys Smudge Cells Platelet Estimate Large Platelets Polychromasia Hypochromasia (manual) Poikilocytosis (manual Anisocytosis (manual) Microcytosis (manual) Spherocytes Ovalocytes D-Dimer, Quantitative Puncture Site Rra pCO2 42 pO2 103 H HCO3 26.8 ABG pH 7.42 ABG Total CO2 28.5 H ABG O2 Saturation 98.0 ABG Base Excess 2.4 ABG Hemoglobin ABG Carboxyhemoglobin POC ABG HHb (Measured) ABG Methemoglobin Von Test Pos ABG Potassium 2.9 L A-a O2 Difference 130.0 Respiratory Index 1.3 Hgb O2 Saturation Sodium 137.0 135 Chloride 102.0 100 Glucose 160 H Lactate 1.4 Vent Mode High flow FiO2 40.0 Potassium 3.1 L Carbon Dioxide 24 Anion Gap 14 BUN 22 H Creatinine 0.9 Est GFR ( Amer) > 60 Est GFR (Non-Af Amer) > 60 POC Glucose (mg/dL) 216 H Random Glucose 158 H D Calcium 8.4 L Phosphorus 2.8 Magnesium 1.6 Total Bilirubin 1.0 AST 64 H ALT 57 Alkaline Phosphatase 69 Troponin I 0.0690 Total Protein 6.5 Albumin 4.2 Globulin 2.3 Albumin/Globulin Ratio 1.9 Arterial Blood Potassium 2.9 L 10/01/18 10/01/18 10/02/18 18:45 21:03 05:46 WBC 14.0 H RBC 4.19 L Hgb 12.3 Hct 38.1 MCV 90.9 MCH 29.3 MCHC 32.3 L RDW 14.7 H Plt Count 151 MPV 7.5 Neut % (Auto) 91.6 H Lymph % (Auto) 4.5 L Bond % (Auto) 3.7 Eos % (Auto) 0.0 Baso % (Auto) 0.2 Neut # (Auto) 12.8 H Lymph # (Auto) 0.6 L Bond # (Auto) 0.5 Eos # (Auto) 0.0 Baso # (Auto) 0.0 Neutrophils % (Manual) 81 H Band Neutrophils % 9 H Lymphocytes % (Manual) 4 L Reactive Lymphs % 1 H Monocytes % (Manual) 5 Myelocytes % Hypersegmented Polys Present Smudge Cells Present Platelet Estimate Decreased L Large Platelets Present Polychromasia Slight Hypochromasia (manual) Poikilocytosis (manual Slight Anisocytosis (manual) Slight Microcytosis (manual) Slight Spherocytes Slight Ovalocytes Slight D-Dimer, Quantitative Puncture Site R rad pCO2 42 pO2 66 L HCO3 27.4 ABG pH 7.43 ABG Total CO2 29.2 H ABG O2 Saturation 96.0 ABG Base Excess 3.2 H ABG Hemoglobin 11.5 L ABG Carboxyhemoglobin 1.4 POC ABG HHb (Measured) 3.9 ABG Methemoglobin 0.6 Von Test Pos ABG Potassium A-a O2 Difference 131.0 Respiratory Index 2.0 Hgb O2 Saturation 94.1 L Sodium Chloride Glucose Lactate Vent Mode High-flow FiO2 35.0 Potassium Carbon Dioxide Anion Gap BUN Creatinine Est GFR ( Amer) Est GFR (Non-Af Amer) POC Glucose (mg/dL) 214 H Random Glucose Calcium Phosphorus Magnesium Total Bilirubin AST ALT Alkaline Phosphatase Troponin I Total Protein Albumin Globulin Albumin/Globulin Ratio Arterial Blood Potassium 10/02/18 10/02/18 10/02/18 06:22 06:22 07:16 WBC 15.8 H RBC 4.12 L Hgb 12.1 Hct 37.4 MCV 90.8 MCH 29.3 MCHC 32.3 L RDW 14.4 Plt Count 135 MPV 7.9 Neut % (Auto) 89.2 H Lymph % (Auto) 5.0 L Bond % (Auto) 5.7 Eos % (Auto) 0.0 Baso % (Auto) 0.1 Neut # (Auto) 14.1 H Lymph # (Auto) 0.8 L Bond # (Auto) 0.9 H Eos # (Auto) 0.0 Baso # (Auto) 0.0 Neutrophils % (Manual) 67 Band Neutrophils % 23 H* Lymphocytes % (Manual) 3 L Reactive Lymphs % Monocytes % (Manual) 6 Myelocytes % 1 H Hypersegmented Polys Smudge Cells Platelet Estimate Normal Large Platelets Polychromasia Hypochromasia (manual) Slight Poikilocytosis (manual Anisocytosis (manual) Microcytosis (manual) Spherocytes Ovalocytes D-Dimer, Quantitative Puncture Site pCO2 pO2 HCO3 ABG pH ABG Total CO2 ABG O2 Saturation ABG Base Excess ABG Hemoglobin ABG Carboxyhemoglobin POC ABG HHb (Measured) ABG Methemoglobin Von Test ABG Potassium A-a O2 Difference Respiratory Index Hgb O2 Saturation Sodium 136 Chloride 101 Glucose Lactate Vent Mode FiO2 Potassium 4.1 Carbon Dioxide 24 Anion Gap 15 BUN 19 Creatinine 0.7 L Est GFR ( Amer) > 60 Est GFR (Non-Af Amer) > 60 POC Glucose (mg/dL) 171 H Random Glucose 173 H Calcium 8.6 Phosphorus Magnesium Total Bilirubin AST ALT Alkaline Phosphatase Troponin I Total Protein Albumin Globulin Albumin/Globulin Ratio Arterial Blood Potassium 10/02/18 11:39 WBC RBC Hgb Hct MCV MCH MCHC RDW Plt Count MPV Neut % (Auto) Lymph % (Auto) Bond % (Auto) Eos % (Auto) Baso % (Auto) Neut # (Auto) Lymph # (Auto) Bond # (Auto) Eos # (Auto) Baso # (Auto) Neutrophils % (Manual) Band Neutrophils % Lymphocytes % (Manual) Reactive Lymphs % Monocytes % (Manual) Myelocytes % Hypersegmented Polys Smudge Cells Platelet Estimate Large Platelets Polychromasia Hypochromasia (manual) Poikilocytosis (manual Anisocytosis (manual) Microcytosis (manual) Spherocytes Ovalocytes D-Dimer, Quantitative 604 H Puncture Site pCO2 pO2 HCO3 ABG pH ABG Total CO2 ABG O2 Saturation ABG Base Excess ABG Hemoglobin ABG Carboxyhemoglobin POC ABG HHb (Measured) ABG Methemoglobin Von Test ABG Potassium A-a O2 Difference Respiratory Index Hgb O2 Saturation Sodium Chloride Glucose Lactate Vent Mode FiO2 Potassium Carbon Dioxide Anion Gap BUN Creatinine Est GFR ( Amer) Est GFR (Non-Af Amer) POC Glucose (mg/dL) Random Glucose Calcium Phosphorus Magnesium Total Bilirubin AST ALT Alkaline Phosphatase Troponin I Total Protein Albumin Globulin Albumin/Globulin Ratio Arterial Blood Potassium Radiology Impressions: Radiology Impressions Duplex Scan Lower Extremity Artery 10/01/18 14:40 IMPRESSION: Right: No evidence of deep or superficial vein thrombosis of the right lower extremity. Normal valve function noted of the right side. Left: No evidence of deep or superficial vein thrombosis of the left lower extremity. Normal valve function noted of the left side. Fingerstick Blood Sugar Results: 136 Critical Care Progress Note - Nutrition Nutrition: Nutrition Category Date Time Status Consistent Carbohydrate [DIET] Diets 10/02/18 Lunch Active Assessment/Plan - Assessment and Plan (Free Text) Plan: Patient is a 58 year old male with pmhx of COPD, Bladder CA, CHF, DM, HTN, peripheral edema, TONIO, alcohol/substancer abuse, chronic b/l hip pain was brought to the ED for shortness of breath, in ED with respiratory distress, refused bipap and intubation, on high flow O2 at this time, with left leg cellulitis, elevated lactate and wbc on ED labs. improved temperature, on cooling blanket, continue abx for possible celullitis coverage, dopplers and CTA to rule out DVT/PE pending Neuro AAOx3 xanax and ambien for agitation Temperature 101F now - improving cooling blanket Cardio hx of CHF echo -f/u results Hx of HTN - on home coreg and losartan cardio consult - Dr crews - f/u recs - lovenox 100mg BID subtherapeutic until PE is r/o Venous doppler - f/u f/u d dimer - 604 CTA chest - follow up to rule out PE Pulm Presenting with COPD exarcerbation decadron IM and terbutaline SC in ED patient refused ETT high flow 40% FiO2 Solumedrol 40 mg IVP Q8H lasix 40 IVP x ONCE duonebs Q6H ABG shock at 4:30 pm ABG repeat every 6H Pulm consult - Dr Shah- BIPAP GI consistent carb diet protonix Endo hx of DM ISS medium protocol accuchecks ACHS hypoglycemia protocol ID SIRS criteria, possible cellulitis left leg wBC 15 today, bands 23 Ciprofloxacin 100mg Q12H Aztreonam 2mg Q8H added today no zosyn, allergy to cephalexin, cefuroxime blood, urine cx no growth x 24 hours cooling blanket monitor temperature CBC, CMP Q6H ID consult - Dr Vázquez flu negative Wound care for left LE Nephro BUN/Cr improving continue to monitor renal function PPX GI: protonix DVT: Lovenox 40SC Q daily, SCDs c/i due to leg cellulitis Percocet 1 tablet Q6 PRN for pain when temperature decreases Oxycotinin 10mg PO Q8H SANDRA Plan discussed with Dr Xiomy Ge - Date & Time Date: 10/02/18 Time: 09:00 <Zeb Shah S - Last Filed: 10/03/18 17:45> CCU Objective - Vital Signs / Intake & Output Vital Signs (Last 4 hours): Vital Signs Temp Pulse Resp BP Pulse Ox 10/03/18 16:27 127 H 25 H 127/77 97 10/03/18 16:00 99.5 F 138 H 31 H 89 L 10/03/18 15:27 144 H 29 H 133/76 97 10/03/18 15:00 144 H 29 H 98 10/03/18 14:27 129 H 31 H 141/81 99 10/03/18 14:00 121 H 24 95 Intake and Output (Last 8hrs): Intake & Output 10/03/18 10/03/18 10/03/18 06:59 14:59 22:59 Intake Total 900 560 Output Total 1225 Balance 900 -665 Intake: Intake, IV Amount 900 200 Left Upper arm 900 200 Oral 360 Output: Urine 1225 Urine, Voided 1225 - Medications Active Medications: Active Medications Generic Name Dose Route Start Last Admin Trade Name Freq PRN Reason Stop Dose Admin Acetaminophen 650 mg 10/01/18 21:40 10/02/18 18:26 Tylenol 650mg/20.3ml Solution Ud PO 650 mg Q6 PRN Administration Temperature Albuterol/Ipratropium 3 ml 10/01/18 20:00 10/03/18 13:40 Duoneb 3 Mg/0.5 Mg (3 Ml) Ud INH 3 ml RQ6 SANDRA Administration Alprazolam 0.25 mg 10/01/18 22:00 10/02/18 22:50 Xanax PO 10/08/18 22:01 0.25 mg HS SANDRA Administration Aspirin 81 mg 10/02/18 16:30 10/03/18 09:33 Ecotrin PO 81 mg DAILY SANDRA Administration Carvedilol 3.125 mg 10/02/18 08:45 10/03/18 09:33 Coreg PO 3.125 mg BID SANDRA Administration Dextrose 0 ml 10/01/18 19:11 Dextrose 50% Inj IV STAT PRN Hypoglycemia Protocol Protocol Dextrose 0 gm 10/01/18 19:11 Glutose 15 PO ONCE PRN Hypoglycemia Protocol Protocol Enoxaparin Sodium 40 mg 10/03/18 10:00 10/03/18 10:56 Lovenox SC 40 mg DAILY SANDRA Administration Glucagon 0 mg 10/01/18 19:11 Glucagen Diagnostic Kit IM STAT PRN Hypoglycemia Protocol Protocol Dextrose 1,000 mls @ 0 mls/hr 10/01/18 19:11 Dextrose 5% In Water 1000 Ml IV .Q0M PRN Hypoglycemia Protocol Protocol Per Protocol Aztreonam 2 gm/ Sodium 100 mls @ 200 mls/hr 10/02/18 14:00 10/03/18 14:34 Chloride IVPB 200 mls/hr Q8H SANDRA Administration Protocol Insulin Human Regular 0 unit 10/01/18 22:00 10/03/18 16:17 Novolin R SC Not Given ACHS SANDRA Protocol Losartan Potassium 100 mg 10/02/18 08:45 10/03/18 09:33 Cozaar PO 100 mg DAILY SANDRA Administration Methylprednisolone 40 mg 10/01/18 16:00 10/03/18 16:31 Solu-Medrol IVP 40 mg Q8H SANDRA Administration Oxycodone HCl 10 mg 10/01/18 19:00 10/03/18 10:55 Oxycontin Extended Release Tab PO 10/04/18 19:01 10 mg Q8H SANDRA Administration Oxycodone/Acetaminophen 1 tab 10/01/18 16:09 10/03/18 14:45 Percocet 5/325 Mg Tab PO 10/04/18 16:10 1 tab Q6H PRN Administration Pain, severe (8-10) Pantoprazole Sodium 40 mg 10/01/18 16:00 10/03/18 09:34 Protonix Inj IVP 40 mg DAILY SANDRA Administration Zolpidem Tartrate 5 mg 10/02/18 01:16 10/02/18 01:46 Ambien PO 5 mg HS PRN Administration Insomnia - Patient Studies Lab Studies: Microbiology Studies 10/01/18 12:24 Blood Culture - Preliminary Blood NO GROWTH AFTER 48 HOURS 10/01/18 12:21 Blood Culture - Preliminary Blood NO GROWTH AFTER 48 HOURS 10/02/18 14:49 Gram Stain - Final Leg - Left Wound Culture - Preliminary Gram Negative Osmani 10/01/18 17:33 MRSA Culture (Admit) - Final Naris MRSA NOT DETECTED Lab Studies 10/03/18 10/03/18 10/03/18 Range/Units 16:10 11:30 07:16 WBC (4.8-10.8) K/uL RBC (4.40-5.90) Mil/uL Hgb (12.0-18.0) g/dL Hct (35.0-51.0) % MCV (80.0-94.0) fL MCH (27.0-31.0) pg MCHC (33.0-37.0) g/dL RDW (11.5-14.5) % Plt Count (130-400) K/uL MPV (7.2-11.7) fL Neut % (Auto) (50.0-75.0) % Lymph % (Auto) (20.0-40.0) % Bond % (Auto) (0.0-10.0) % Eos % (Auto) (0.0-4.0) % Baso % (Auto) (0.0-2.0) % Neut # (Auto) (1.8-7.0) K/uL Lymph # (Auto) (1.0-4.3) K/uL Bond # (Auto) (0.0-0.8) K/uL Eos # (Auto) (0.0-0.7) K/uL Baso # (Auto) (0.0-0.2) K/uL Neutrophils % (Manual) (50-75) % Band Neutrophils % (0-2) % Lymphocytes % (Manual) (20-40) % Monocytes % (Manual) (0-10) % Platelet Estimate (NORMAL) Large Platelets Giant Platelets Puncture Site pCO2 (35-45) mm/Hg pO2 (80-100) mm/Hg HCO3 (21-28) mmol/L ABG pH (7.35-7.45) ABG Total CO2 (22-28) mmol/L ABG O2 Saturation (95-98) % ABG Base Excess (-2.0-3.0) mmol/L ABG Hemoglobin (11.7-17.4) g/dL ABG Carboxyhemoglobin (0.5-1.5) % POC ABG HHb (Measured) (0.0-5.0) % ABG Methemoglobin (0.0-3.0) % Von Test ABG Potassium (3.6-5.2) mmol/L A-a O2 Difference mm/Hg Respiratory Index Hgb O2 Saturation (95.0-98.0) % Sodium (132-148) mmol/l Chloride (98-107) mmol/L Glucose (75-110) mg/dl Lactate (0.7-2.1) mmol/L Liter Flow Vent Mode FiO2 % Inspiratory BiPAP Expiratory BiPAP Potassium (3.6-5.2) mmol/L Carbon Dioxide (22-30) mmol/L Anion Gap (10-20) BUN (9-20) mg/dL Creatinine (0.8-1.5) mg/dL Est GFR ( Amer) Est GFR (Non-Af Amer) POC Glucose (mg/dL) 146 H 212 H 150 H (65-110) mg/dL Random Glucose (75-110) mg/dL Calcium (8.6-10.4) mg/dl Phosphorus (2.5-4.5) mg/dL Magnesium (1.6-2.3) mg/dL Total Bilirubin (0.2-1.3) mg/dL AST (17-59) U/L ALT (21-72) U/L Alkaline Phosphatase (38-126) U/L Total Protein (6.3-8.3) g/dL Albumin (3.5-5.0) g/dL Globulin (2.2-3.9) gm/dL Albumin/Globulin Ratio (1.0-2.1) Arterial Blood Potassium (3.6-5.2) mmol/L 10/03/18 10/03/18 10/03/18 Range/Units 06:09 06:00 05:15 WBC 14.8 H (4.8-10.8) K/uL RBC 3.87 L (4.40-5.90) Mil/uL Hgb 11.6 L (12.0-18.0) g/dL Hct 35.8 (35.0-51.0) % MCV 92.5 (80.0-94.0) fL MCH 29.9 (27.0-31.0) pg MCHC 32.3 L (33.0-37.0) g/dL RDW 14.5 (11.5-14.5) % Plt Count 166 (130-400) K/uL MPV 8.3 (7.2-11.7) fL Neut % (Auto) 90.0 H (50.0-75.0) % Lymph % (Auto) 4.7 L (20.0-40.0) % Bond % (Auto) 5.3 (0.0-10.0) % Eos % (Auto) 0.0 (0.0-4.0) % Baso % (Auto) 0.0 (0.0-2.0) % Neut # (Auto) 13.3 H (1.8-7.0) K/uL Lymph # (Auto) 0.7 L (1.0-4.3) K/uL Bond # (Auto) 0.8 (0.0-0.8) K/uL Eos # (Auto) 0.0 (0.0-0.7) K/uL Baso # (Auto) 0.0 (0.0-0.2) K/uL Neutrophils % (Manual) 73 (50-75) % Band Neutrophils % 16 H* (0-2) % Lymphocytes % (Manual) 2 L (20-40) % Monocytes % (Manual) 9 (0-10) % Platelet Estimate Normal (NORMAL) Large Platelets Present Giant Platelets Present Puncture Site Rr pCO2 53 H (35-45) mm/Hg pO2 99 (80-100) mm/Hg HCO3 25.9 (21-28) mmol/L ABG pH 7.33 L (7.35-7.45) ABG Total CO2 29.5 H (22-28) mmol/L ABG O2 Saturation 97.9 (95-98) % ABG Base Excess 1.2 (-2.0-3.0) mmol/L ABG Hemoglobin 11.4 L (11.7-17.4) g/dL ABG Carboxyhemoglobin 1.0 (0.5-1.5) % POC ABG HHb (Measured) 2.1 (0.0-5.0) % ABG Methemoglobin 0.5 (0.0-3.0) % Von Test Pos ABG Potassium (3.6-5.2) mmol/L A-a O2 Difference 191.0 mm/Hg Respiratory Index 1.9 Hgb O2 Saturation 96.4 (95.0-98.0) % Sodium 138 (132-148) mmol/l Chloride 102 (98-107) mmol/L Glucose (75-110) mg/dl Lactate (0.7-2.1) mmol/L Liter Flow 30.0 Vent Mode FiO2 50.0 % Inspiratory BiPAP Expiratory BiPAP Potassium 3.9 (3.6-5.2) mmol/L Carbon Dioxide 28 (22-30) mmol/L Anion Gap 13 (10-20) BUN 21 H (9-20) mg/dL Creatinine 0.7 L (0.8-1.5) mg/dL Est GFR ( Amer) > 60 Est GFR (Non-Af Amer) > 60 POC Glucose (mg/dL) (65-110) mg/dL Random Glucose 134 H D (75-110) mg/dL Calcium 8.5 L (8.6-10.4) mg/dl Phosphorus 2.1 L (2.5-4.5) mg/dL Magnesium 2.4 H (1.6-2.3) mg/dL Total Bilirubin 0.5 (0.2-1.3) mg/dL AST 39 (17-59) U/L ALT 47 (21-72) U/L Alkaline Phosphatase 78 (38-126) U/L Total Protein 6.4 (6.3-8.3) g/dL Albumin 4.0 (3.5-5.0) g/dL Globulin 2.5 (2.2-3.9) gm/dL Albumin/Globulin Ratio 1.6 (1.0-2.1) Arterial Blood Potassium (3.6-5.2) mmol/L 10/02/18 10/02/18 Range/Units 22:00 21:20 WBC (4.8-10.8) K/uL RBC (4.40-5.90) Mil/uL Hgb (12.0-18.0) g/dL Hct (35.0-51.0) % MCV (80.0-94.0) fL MCH (27.0-31.0) pg MCHC (33.0-37.0) g/dL RDW (11.5-14.5) % Plt Count (130-400) K/uL MPV (7.2-11.7) fL Neut % (Auto) (50.0-75.0) % Lymph % (Auto) (20.0-40.0) % Bond % (Auto) (0.0-10.0) % Eos % (Auto) (0.0-4.0) % Baso % (Auto) (0.0-2.0) % Neut # (Auto) (1.8-7.0) K/uL Lymph # (Auto) (1.0-4.3) K/uL Bond # (Auto) (0.0-0.8) K/uL Eos # (Auto) (0.0-0.7) K/uL Baso # (Auto) (0.0-0.2) K/uL Neutrophils % (Manual) (50-75) % Band Neutrophils % (0-2) % Lymphocytes % (Manual) (20-40) % Monocytes % (Manual) (0-10) % Platelet Estimate (NORMAL) Large Platelets Giant Platelets Puncture Site Rr pCO2 47 H (35-45) mm/Hg pO2 306 H (80-100) mm/Hg HCO3 24.4 (21-28) mmol/L ABG pH 7.34 L (7.35-7.45) ABG Total CO2 26.8 (22-28) mmol/L ABG O2 Saturation 98.6 H (95-98) % ABG Base Excess -0.8 (-2.0-3.0) mmol/L ABG Hemoglobin (11.7-17.4) g/dL ABG Carboxyhemoglobin (0.5-1.5) % POC ABG HHb (Measured) (0.0-5.0) % ABG Methemoglobin (0.0-3.0) % Von Test Po ABG Potassium 3.5 L (3.6-5.2) mmol/L A-a O2 Difference 134.0 mm/Hg Respiratory Index 0.4 Hgb O2 Saturation (95.0-98.0) % Sodium 144.0 (132-148) mmol/l Chloride 113.0 H (98-107) mmol/L Glucose 155 H (75-110) mg/dl Lactate 1.0 (0.7-2.1) mmol/L Liter Flow Vent Mode Bipap FiO2 70.0 % Inspiratory BiPAP 16 Expiratory BiPAP 5 Potassium (3.6-5.2) mmol/L Carbon Dioxide (22-30) mmol/L Anion Gap (10-20) BUN (9-20) mg/dL Creatinine (0.8-1.5) mg/dL Est GFR ( Amer) Est GFR (Non-Af Amer) POC Glucose (mg/dL) 157 H (65-110) mg/dL Random Glucose (75-110) mg/dL Calcium (8.6-10.4) mg/dl Phosphorus (2.5-4.5) mg/dL Magnesium (1.6-2.3) mg/dL Total Bilirubin (0.2-1.3) mg/dL AST (17-59) U/L ALT (21-72) U/L Alkaline Phosphatase (38-126) U/L Total Protein (6.3-8.3) g/dL Albumin (3.5-5.0) g/dL Globulin (2.2-3.9) gm/dL Albumin/Globulin Ratio (1.0-2.1) Arterial Blood Potassium 3.5 L (3.6-5.2) mmol/L Laboratory Results - last 24 hr 10/02/18 10/02/18 10/03/18 21:20 22:00 05:15 WBC RBC Hgb Hct MCV MCH MCHC RDW Plt Count MPV Neut % (Auto) Lymph % (Auto) Bond % (Auto) Eos % (Auto) Baso % (Auto) Neut # (Auto) Lymph # (Auto) Bond # (Auto) Eos # (Auto) Baso # (Auto) Neutrophils % (Manual) Band Neutrophils % Lymphocytes % (Manual) Monocytes % (Manual) Platelet Estimate Large Platelets Giant Platelets Puncture Site Rr Rr pCO2 47 H 53 H pO2 306 H 99 HCO3 24.4 25.9 ABG pH 7.34 L 7.33 L ABG Total CO2 26.8 29.5 H ABG O2 Saturation 98.6 H 97.9 ABG Base Excess -0.8 1.2 ABG Hemoglobin 11.4 L ABG Carboxyhemoglobin 1.0 POC ABG HHb (Measured) 2.1 ABG Methemoglobin 0.5 Von Test Po Pos ABG Potassium 3.5 L A-a O2 Difference 134.0 191.0 Respiratory Index 0.4 1.9 Hgb O2 Saturation 96.4 Sodium 144.0 Chloride 113.0 H Glucose 155 H Lactate 1.0 Liter Flow 30.0 Vent Mode Bipap FiO2 70.0 50.0 Inspiratory BiPAP 16 Expiratory BiPAP 5 Potassium Carbon Dioxide Anion Gap BUN Creatinine Est GFR ( Amer) Est GFR (Non-Af Amer) POC Glucose (mg/dL) 157 H Random Glucose Calcium Phosphorus Magnesium Total Bilirubin AST ALT Alkaline Phosphatase Total Protein Albumin Globulin Albumin/Globulin Ratio Arterial Blood Potassium 3.5 L 10/03/18 10/03/18 10/03/18 06:00 06:09 07:16 WBC 14.8 H RBC 3.87 L Hgb 11.6 L Hct 35.8 MCV 92.5 MCH 29.9 MCHC 32.3 L RDW 14.5 Plt Count 166 MPV 8.3 Neut % (Auto) 90.0 H Lymph % (Auto) 4.7 L Bond % (Auto) 5.3 Eos % (Auto) 0.0 Baso % (Auto) 0.0 Neut # (Auto) 13.3 H Lymph # (Auto) 0.7 L Bond # (Auto) 0.8 Eos # (Auto) 0.0 Baso # (Auto) 0.0 Neutrophils % (Manual) 73 Band Neutrophils % 16 H* Lymphocytes % (Manual) 2 L Monocytes % (Manual) 9 Platelet Estimate Normal Large Platelets Present Giant Platelets Present Puncture Site pCO2 pO2 HCO3 ABG pH ABG Total CO2 ABG O2 Saturation ABG Base Excess ABG Hemoglobin ABG Carboxyhemoglobin POC ABG HHb (Measured) ABG Methemoglobin Von Test ABG Potassium A-a O2 Difference Respiratory Index Hgb O2 Saturation Sodium 138 Chloride 102 Glucose Lactate Liter Flow Vent Mode FiO2 Inspiratory BiPAP Expiratory BiPAP Potassium 3.9 Carbon Dioxide 28 Anion Gap 13 BUN 21 H Creatinine 0.7 L Est GFR ( Amer) > 60 Est GFR (Non-Af Amer) > 60 POC Glucose (mg/dL) 150 H Random Glucose 134 H D Calcium 8.5 L Phosphorus 2.1 L Magnesium 2.4 H Total Bilirubin 0.5 AST 39 ALT 47 Alkaline Phosphatase 78 Total Protein 6.4 Albumin 4.0 Globulin 2.5 Albumin/Globulin Ratio 1.6 Arterial Blood Potassium 10/03/18 10/03/18 11:30 16:10 WBC RBC Hgb Hct MCV MCH MCHC RDW Plt Count MPV Neut % (Auto) Lymph % (Auto) Bond % (Auto) Eos % (Auto) Baso % (Auto) Neut # (Auto) Lymph # (Auto) Bond # (Auto) Eos # (Auto) Baso # (Auto) Neutrophils % (Manual) Band Neutrophils % Lymphocytes % (Manual) Monocytes % (Manual) Platelet Estimate Large Platelets Giant Platelets Puncture Site pCO2 pO2 HCO3 ABG pH ABG Total CO2 ABG O2 Saturation ABG Base Excess ABG Hemoglobin ABG Carboxyhemoglobin POC ABG HHb (Measured) ABG Methemoglobin Von Test ABG Potassium A-a O2 Difference Respiratory Index Hgb O2 Saturation Sodium Chloride Glucose Lactate Liter Flow Vent Mode FiO2 Inspiratory BiPAP Expiratory BiPAP Potassium Carbon Dioxide Anion Gap BUN Creatinine Est GFR ( Amer) Est GFR (Non-Af Amer) POC Glucose (mg/dL) 212 H 146 H Random Glucose Calcium Phosphorus Magnesium Total Bilirubin AST ALT Alkaline Phosphatase Total Protein Albumin Globulin Albumin/Globulin Ratio Arterial Blood Potassium Radiology Impressions: Radiology Impressions Chest CT 10/02/18 17:01 IMPRESSION: No large, central pulmonary emboli. Limitations of the current examination: Nondiagnostic study beyond the lobar branches. Poor opacification of main and peripheral pulmonary arterial branches. Chest X-Ray 10/03/18 10:24 Impression: Moderate venous congestion. Right hilar prominence. Elevated right hemidiaphragm. Small to moderate left pleural effusion with adjacent left basilar consolidation. Right paratracheal prominence may represent prominent vasculature. Cardiomegaly. Degenerative changes in the spine and shoulders. Biapical pleural thickening with upper lobe granulomatous changes. Critical Care Progress Note - Nutrition Nutrition: Nutrition Category Date Time Status Consistent Carbohydrate [DIET] Diets 10/02/18 Lunch Active Attending/Attestation - Attestation I have personally seen and examined this patient.: Yes I have fully participated in the care of the patient.: Yes I have reviewed all pertinent clinical information: Yes Notes (Text): Patient seen and examined Refusing intubation Continue IV antibiotics Continue high flow oxygen and BiPAP as needed Psych evaluation Nebulizer treatment and steroids Follow-up culture and sensitivity
--- NOTE | 2018-10-02 14:39 | CP.PCM.PN ---
Subjective - Date & Time of Evaluation Date of Evaluation: 10/02/18 Time of Evaluation: 12:15 - Subjective Subjective: clinically same Objective - Vital Signs/Intake and Output Vital Signs (last 24 hours): Temp Pulse Resp BP Pulse Ox 101 F H 132 H 24 127/67 100 10/02/18 12:32 10/02/18 14:00 10/02/18 14:00 10/02/18 13:29 10/02/18 14:00 Intake and Output: 10/02/18 10/02/18 06:59 18:59 Intake Total 1300 1160 Output Total 1900 Balance -600 1160 - Medications Medications: Current Medications Acetaminophen (Tylenol 650mg/20.3ml Solution Ud) 650 mg PO Q6 PRN PRN Reason: Temperature Last Admin: 10/02/18 11:32 Dose: 650 mg Albuterol/Ipratropium (Duoneb 3 Mg/0.5 Mg (3 Ml) Ud) 3 ml INH RQ6 SANDRA Last Admin: 10/02/18 13:43 Dose: Not Given Alprazolam (Xanax) 0.25 mg PO HS [facility] Stop: 10/08/18 22:01 Last Admin: 10/01/18 23:43 Dose: 0.25 mg Carvedilol (Coreg) 3.125 mg PO BID [facility] Last Admin: 10/02/18 11:20 Dose: Not Given Dextrose (Dextrose 50% Inj) 0 ml IV STAT PRN; Protocol PRN Reason: Hypoglycemia Protocol Dextrose (Glutose 15) 0 gm PO ONCE PRN; Protocol PRN Reason: Hypoglycemia Protocol Enoxaparin Sodium (Lovenox) 40 mg SC DAILY [facility] Last Admin: 10/02/18 10:14 Dose: 40 mg Glucagon (Glucagen Diagnostic Kit) 0 mg IM STAT PRN; Protocol PRN Reason: Hypoglycemia Protocol Sodium Chloride (Sodium Chloride 0.9%) 1,000 mls @ 100 mls/hr IV .Q10H [facility] Last Admin: 10/02/18 04:57 Dose: 100 mls/hr Doxycycline Hyclate 100 mg/ (Sodium Chloride) 100 mls @ 100 mls/hr IVPB Q12H SANDRA; Protocol Last Admin: 10/02/18 03:15 Dose: 100 mls/hr Vancomycin/Sodium Chloride (Vancomycin 1 Gm/Ns 200 Ml) 1 gm in 200 mls @ 133 mls/hr IVPB Q12H SANDRA; Protocol Stop: 10/07/18 02:01 Last Admin: 10/02/18 14:35 Dose: 133 mls/hr Dextrose (Dextrose 5% In Water 1000 Ml) 1,000 mls @ 0 mls/hr IV .Q0M PRN; Protocol PRN Reason: Hypoglycemia Protocol Aztreonam 2 gm/ Sodium (Chloride) 100 mls @ 200 mls/hr IVPB Q8H SANDRA; Protocol Last Admin: 10/02/18 13:40 Dose: 200 mls/hr Influenza Virus Vaccine (Flucelvax Quad [id number] Syr) 60 mcg IM .ONCE ONE Stop: 10/03/18 10:01 Insulin Human Regular (Novolin R) 0 unit SC ACHS [facility]; Protocol Last Admin: 10/02/18 11:30 Dose: Not Given Losartan Potassium (Cozaar) 100 mg PO DAILY [facility] Last Admin: 10/02/18 11:20 Dose: Not Given Methylprednisolone (Solu-Medrol) 40 mg IVP Q8H [facility] Last Admin: 10/02/18 07:46 Dose: 40 mg Oxycodone HCl (Oxycontin Extended Release Tab) 10 mg PO Q8H [facility] Stop: 10/04/18 19:01 Last Admin: 10/02/18 11:30 Dose: 10 mg Oxycodone/Acetaminophen (Percocet 5/325 Mg Tab) 1 tab PO Q6H PRN PRN Reason: Pain, severe (8-10) Stop: 10/04/18 16:10 Last Admin: 10/02/18 10:15 Dose: 1 tab Pantoprazole Sodium (Protonix Inj) 40 mg IVP DAILY [facility] Last Admin: 10/02/18 10:14 Dose: 40 mg Zolpidem Tartrate (Ambien) 5 mg PO HS PRN PRN Reason: Insomnia Last Admin: 10/02/18 01:46 Dose: 5 mg - Labs Labs: 10/02/18 06:22 10/02/18 06:22 PT 11.5 SECONDS (9.7-12.2) 10/01/18 12:26 INR 1.1 10/01/18 12:26 APTT 27 SECONDS (21-34) 10/01/18 12:26 - Constitutional Appears: Well - Head Exam Head Exam: ATRAUMATIC, NORMAL INSPECTION, NORMOCEPHALIC - Eye Exam Eye Exam: EOMI, Normal appearance, PERRL Pupil Exam: NORMAL ACCOMODATION, PERRL - ENT Exam ENT Exam: Mucous Membranes Moist, Normal Exam - Neck Exam Neck Exam: Full ROM, Normal Inspection. absent: Lymphadenopathy - Respiratory Exam Respiratory Exam: Decreased Breath Sounds - Cardiovascular Exam Cardiovascular Exam: REGULAR RHYTHM, +S1, +S2 - GI/Abdominal Exam GI & Abdominal Exam: Soft, Diminished Bowel Sounds - Rectal Exam Rectal Exam: Deferred
[2018-10-02] MEDS ORDERED: Iohexol 300 100 ML IJ ONE (17:03)
--- NOTE | 2018-10-02 18:15 | CT ---
Date of service: 10/02/2018 PROCEDURE: CT Chest with contrast (Pulmonary Angiogram) HISTORY: COPD exacerbation presenting with dyspnea. COMPARISON: 01/22/2018 CT pulmonary angiogram, pulmonary embolism study TECHNIQUE: Axial computed tomography images were obtained of the chest in the pulmonary arterial phase of enhancement. Coronal and sagittal reformatted images were created and reviewed. Intravenous contrast dose: 100 cc Omnipaque 300. Mean Hounsfield value in the main pulmonary artery: 125.96 Radiation dose: Total exam DLP = 534.20 mGy-cm. This CT exam was performed using one or more of the following dose reduction techniques: Automated exposure control, adjustment of the mA and/or kV according to patient size, and/or use of iterative reconstruction technique. FINDINGS: PULMONARY ARTERIES: No large, central or saddle emboli identified. Beyond the lobar branches, nondiagnostic study based on qualitative and quantitative assessment of opacification of pulmonary arteries AORTA: No acute findings. No thoracic aortic aneurysm. Atherosclerotic calcification and mural plaque present. Findings are seen throughout the aorta. LUNGS: Unremarkable. No nodule, mass or pulmonary consolidation. PLEURAL SPACES: Unremarkable. No effusion or pneumothorax. HEART: Unremarkable. No cardiomegaly. No significant pericardial effusion. LYMPH NODES: No lymphadenopathy. BONES, CHEST WALL: Unremarkable. No fracture or destructive lesion OTHER FINDINGS: Unremarkable. IMPRESSION: No large, central pulmonary emboli. Limitations of the current examination: Nondiagnostic study beyond the lobar branches. Poor opacification of main and peripheral pulmonary arterial branches.
--- NOTE | 2018-10-02 20:36 | CARD ---
APPROVED REPORT Date of service: 10/01/2018 EKG Measurement Heart [id number] <Conclusion> Sinus tachycardia Nonspecific ST abnormality Abnormal ECG
--- NOTE | 2018-10-02 21:13 | CARD ---
APPROVED REPORT Date of service: 10/02/2018 EXAM: Two-dimensional and M-mode echocardiogram with Doppler and color Doppler. Other Information Quality : PoorRhythm : Technically limited study due to body habitus. INDICATION Peripheral Edema Rule out subacute bacterial endocarditis Congestive Heart Failure COPD Bladder CA RISK FACTORS Hypertension Diabetes 2D DIMENSIONS IVSd1.2 (0.7-1.1cm)LVDd3.6 (3.9-5.9cm) PWd1.0 (0.7-1.1cm)LA [id number] (18-58mL) LVDs2.2 (2.5-4.0cm)FS (%) 39.9 % LVEF (%)71.4 (>50%)LVEF (Villafana's)65 % M-Mode DIMENSIONS Left Atrium (MM)3.82 (2.5-4.0cm)Aortic Root3.38 (2.2-3.7cm) Aortic Cusp Exc.2.54 (1.5-2.0cm) Mitral Valve MV E Bjryqege21.3cm/sMV A Fvgbpagi94.0cm/sE/A ratio1.2 TDI Lateral E' Peak V8.76cm/sMedial E' Peak V7.45cm/sE/Lateral E'10.7 E/Medial E'12.5 LEFT VENTRICLE The left ventricle is normal size. There is normal left ventricular wall thickness. The left ventricular function is normal. The left ventricular ejection fraction is within the normal range. Visually 65% No regional wall motion abnormalities noted. The left ventricular diastolic function is normal. No left ventricle thrombus noted on this study. There is no ventricular septal defect visualized. There is no left ventricular aneurysm. There is no mass noted in the left ventricle. RIGHT VENTRICLE The right ventricle is normal size. There is normal right ventricular wall thickness. The right ventricular systolic function is normal. ATRIA The left atrium size is normal. The right atrium size is normal. The interatrial septum is intact with no evidence for an atrial septal defect. AORTIC VALVE Trileaflet aortic valve with mildly thickened leaflets. No aortic regurgitation is present. There is no aortic valvular stenosis. There is no aortic valvular vegetation. MITRAL VALVE The mitral valve is normal in structure and function. There is no evidence of mitral valve prolapse. There is no mitral valve stenosis. There is no mitral valve regurgitation noted. TRICUSPID VALVE The tricuspid valve is normal in structure and function. There is no tricuspid valve regurgitation noted. There is no tricuspid valve prolapse or vegetation. There is no tricuspid valve stenosis. PULMONIC VALVE The pulmonary valve is normal in structure and function. There is no pulmonic valvular regurgitation. There is no pulmonic valvular stenosis. GREAT VESSELS The aortic root is normal in size. The ascending aorta is normal in size. The pulmonary artery is normal. The IVC is normal in size and collapses >50% with inspiration. PERICARDIAL EFFUSION The pericardium appears normal. There is no pleural effusion. <Conclusion> Sub-optimal study quality. Normal left ventricualr systolic function and wall motion. Normal Doppler.
[2018-10-02] MEDS ORDERED: Enoxaparin 100 mg Syringe SC SCH (22:00)
[2018-10-02 22:02] LABS: ABG ALLEN TEST PO; ARTERIAL BLOOD GAS HCO3 24.4 mmol/L (21-28); ARTERIAL BLOOD GAS O2 SAT 98.6 % (95-98); ARTERIAL BLOOD GAS PCO2 47 mm/Hg (35-45); ARTERIAL BLOOD GAS PH 7.34 (7.35-7.45); ARTERIAL BLOOD GAS PO2 306 mm/Hg (80-100); ARTERIAL BLOOD GAS TCO2 26.8 mmol/L (22-28)
[2018-10-03] MEDS: MethylPREDNISolone 40 mg Vial IVP SCH ×3 (01:00→16:31)
[2018-10-03] MEDS: Vancomycin 1 gm/NS 200 ml 1 GM/200 ML BAG IVPB SCH (01:56)
[2018-10-03] MEDS: oxyCODONE 10 mg ER Tab (oxyCONTIN) PO SCH ×4 (01:56→18:44)
[2018-10-03] MEDS: Albuterol-Ipratrop 3 mg / 0.5 (3 ml) UD INH SCH ×4 (02:19→19:18)
[2018-10-03 05:35] LABS: ABG ALLEN TEST POS; ARTERIAL BLOOD GAS HCO3 25.9 mmol/L (21-28); ARTERIAL BLOOD GAS HEMOGLOBIN 11.4 g/dL (11.7-17.4); ARTERIAL BLOOD GAS O2 SAT 97.9 % (95-98); ARTERIAL BLOOD GAS PCO2 53 mm/Hg (35-45); ARTERIAL BLOOD GAS PH 7.33 (7.35-7.45); ARTERIAL BLOOD GAS PO2 99 mm/Hg (80-100); ARTERIAL BLOOD GAS TCO2 29.5 mmol/L (22-28)
[2018-10-03] MEDS: Aztreonam 2 GM in Sodium Chloride 0.9% 100 ML IVPB SCH ×3 (05:56→22:25)
[2018-10-03 06:25] LABS: HEMOGLOBIN 11.6 g/dL (12.0-18.0); LYMPH # 0.7 K/uL (1.0-4.3); LYMPH % 4.7 % (20.0-40.0); MEAN CELL VOLUME 92.5 fL (80.0-94.0); MEAN CORPUSCULAR HEMOGLOBIN 29.9 pg (27.0-31.0); MEAN CORPUSCULAR HGB CONC 32.3 g/dL (33.0-37.0); MEAN PLATELET VOLUME 8.3 fL (7.2-11.7); MONO # 0.8 K/uL (0.0-0.8); MONO % 5.3 % (0.0-10.0); NEUT # 13.3 K/uL (1.8-7.0); PLATELET COUNT 166 K/uL (130-400); RBC 3.87 Mil/uL (4.40-5.90); RED CELL DISTRIBUTION WIDTH 14.5 % (11.5-14.5); WHITE BLOOD COUNT 14.8 K/uL (4.8-10.8)
[2018-10-03 06:36] LABS: ALB/GLOB RATIO 1.6 (1.0-2.1); ALT/SGPT 47 U/L (21-72); AST/SGOT 39 U/L (17-59); BLOOD UREA NITROGEN 21 mg/dL (9-20); CALCIUM 8.5 mg/dl (8.6-10.4); GFR NON-AFRICAN AMERICAN > 60
[2018-10-03] MEDS: Oxycodone/Acetaminophen 5/325 mg Tab PO PRN ×2 (07:24→14:45)
[2018-10-03] MEDS: Sodium Chloride 0.9% 1,000 ML IV SCH (07:35)
[2018-10-03] MEDS: (Novolin R) Insulin Human Regular 100 units/ml vial SC SCH ×4 (08:03→22:26)
[2018-10-03 08:42] LABS: BANDS 16 % (0-2); LYMPHOCYTE 2 % (20-40); MONOCYTE 9 % (0-10); NEUTROPHIL 73 % (50-75); TOTAL CELLS COUNTED 100
[2018-10-03 08:43] LABS: PLATELET ESTIMATE NORMAL (NORMAL)
[2018-10-03 08:44] LABS: GIANT PLATELETS PRESENT; LARGE PLATELETS PRESENT
[2018-10-03] MEDS ORDERED: Influenza Vaccine 60 mcg/0.5 mL SYR (4YR UP) IM ONE (10:00)
--- NOTE | 2018-10-03 10:04 | CP.PCM.PN ---
<Michael Alba - Last Filed: 10/03/18 18:34> Subjective - Date & Time of Evaluation Date of Evaluation: 10/03/18 Time of Evaluation: 10:04 - Subjective Subjective: Cardiology Service: Dr. Cardenas Patient seen and examined at bedside. Per nursing, no acute events occurred overnight. Patient denies any chest pain, fevers, chills, nausea, headaches, dizziness, changes in vision, abdominal pain, or any other complaints. Objective - Vital Signs/Intake and Output Vital Signs (last 24 hours): Temp Pulse Resp BP Pulse Ox 99.2 F 145 H 26 H 154/85 H 98 10/03/18 08:00 10/03/18 09:00 10/03/18 09:00 10/03/18 09:35 10/03/18 09:00 Intake and Output: 10/03/18 10/03/18 06:59 18:59 Intake Total 1300 440 Output Total 225 Balance 1300 215 - Medications Medications: Current Medications Acetaminophen (Tylenol 650mg/20.3ml Solution Ud) 650 mg PO Q6 PRN PRN Reason: Temperature Last Admin: 10/02/18 18:26 Dose: 650 mg Albuterol/Ipratropium (Duoneb 3 Mg/0.5 Mg (3 Ml) Ud) 3 ml INH RQ6 [facility] Last Admin: 10/03/18 08:05 Dose: Not Given Alprazolam (Xanax) 0.25 mg PO HS [facility] Stop: 10/08/18 22:01 Last Admin: 10/02/18 22:50 Dose: 0.25 mg Aspirin (Ecotrin) 81 mg PO DAILY [facility] Last Admin: 10/03/18 09:33 Dose: 81 mg Carvedilol (Coreg) 3.125 mg PO BID [facility] Last Admin: 10/03/18 09:33 Dose: 3.125 mg Dextrose (Dextrose 50% Inj) 0 ml IV STAT PRN; Protocol PRN Reason: Hypoglycemia Protocol Dextrose (Glutose 15) 0 gm PO ONCE PRN; Protocol PRN Reason: Hypoglycemia Protocol Enoxaparin Sodium (Lovenox) 40 mg SC DAILY [facility] Glucagon (Glucagen Diagnostic Kit) 0 mg IM STAT PRN; Protocol PRN Reason: Hypoglycemia Protocol Dextrose (Dextrose 5% In Water 1000 Ml) 1,000 mls @ 0 mls/hr IV .Q0M PRN; Protocol PRN Reason: Hypoglycemia Protocol Aztreonam 2 gm/ Sodium (Chloride) 100 mls @ 200 mls/hr IVPB Q8H [facility]; Protocol Last Admin: 10/03/18 05:56 Dose: 200 mls/hr Insulin Human Regular (Novolin R) 0 unit SC ACHS [facility]; Protocol Last Admin: 10/03/18 08:03 Dose: Not Given Losartan Potassium (Cozaar) 100 mg PO DAILY [facility] Last Admin: 10/03/18 09:33 Dose: 100 mg Methylprednisolone (Solu-Medrol) 40 mg IVP Q8H [facility] Last Admin: 10/03/18 07:25 Dose: 40 mg Oxycodone HCl (Oxycontin Extended Release Tab) 10 mg PO Q8H [facility] Stop: 10/04/18 19:01 Last Admin: 10/03/18 02:24 Dose: Not Given Oxycodone/Acetaminophen (Percocet 5/325 Mg Tab) 1 tab PO Q6H PRN PRN Reason: Pain, severe (8-10) Stop: 10/04/18 16:10 Last Admin: 10/03/18 07:24 Dose: 1 tab Pantoprazole Sodium (Protonix Inj) 40 mg IVP DAILY [facility] Last Admin: 10/03/18 09:34 Dose: 40 mg Zolpidem Tartrate (Ambien) 5 mg PO HS PRN PRN Reason: Insomnia Last Admin: 10/02/18 01:46 Dose: 5 mg - Labs Labs: 10/03/18 06:09 10/03/18 06:00 PT 11.5 SECONDS (9.7-12.2) 10/01/18 12:26 INR 1.1 10/01/18 12:26 APTT 27 SECONDS (21-34) 10/01/18 12:26 - Head Exam Head Exam: NORMAL INSPECTION - Eye Exam Eye Exam: EOMI, Normal appearance, PERRL Pupil Exam: NORMAL ACCOMODATION - ENT Exam ENT Exam: Mucous Membranes Moist - Respiratory Exam Respiratory Exam: Clear to Ausculation Bilateral, NORMAL BREATHING PATTERN. absent: Respiratory Distress - Cardiovascular Exam Cardiovascular Exam: REGULAR RHYTHM, +S1, +S2 - GI/Abdominal Exam GI & Abdominal Exam: Soft, Normal Bowel Sounds. absent: Hyperactive Bowel Sounds - Extremities Exam Extremities Exam: absent: Joint Swelling, Pedal Edema - Back Exam Back Exam: NORMAL INSPECTION. absent: CVA tenderness (R), paraspinal tenderness - Neurological Exam Neurological Exam: Alert, Awake, Oriented x3 - Psychiatric Exam Psychiatric exam: Normal Affect, Normal Mood - Skin Skin Exam: Dry Assessment and Plan - Assessment and Plan (Free Text) Assessment: Patient is a 58 year old male with pmhx of COPD, Bladder CA, CHF, DM, HTN, peripheral edema, TONIO, alcohol/substancer abuse, chronic b/l hip pain was brought to the ED for shortness of breath, in ED with respiratory distress, refused bipap and intubation, on high flow O2 at this time, with left leg cellulitis, elevated lactate and wbc on ED labs. elevated temperature at 104F, on cooling blanket, give abx for possible celullitis coverage. Plan: Plan: 1. Shorntess of breath unlikely CHF. Continue to monitor and medically treat hypertension. Chest ct: No large, central pulmonary emboli. Limitations of the current examination: Nondiagnostic study beyond the lobar branches. Poor opacification of main and peripheral pulmonary arterial branches -s/p respiratory distress in the E.D. -Patient refusing Intubation and BiPAP for treatment and on HiFlow Troponin (-)x 2 CT-Angio negative for pulmonary embolus Medications: Duoneb 3ml INH rq6 quin Solu-medrol 40mg IVP Q8H QUIN 2. Hypertension Coreg 3.125mg PO BID QUIN Cozaar 100mg PO Daily quin 3. DM ISS Aspirin 81mg PO Daily 4.Celluitis Aztreonam 2gm q8 ivpb 5. Insomnia Zolpidem 5 mg PO HS ppx -Lovenox -Protonix Plan discussed with Dr. Cardenas. Michael Alba, PGY-2 <Rafael Cardenas - Last Filed: 10/03/18 22:13> Objective - Vital Signs/Intake and Output Vital Signs (last 24 hours): Temp Pulse Resp BP Pulse Ox 99.8 F H 120 H 29 H 140/77 90 L 10/03/18 20:00 10/03/18 21:11 10/03/18 21:11 10/03/18 21:11 10/03/18 21:11 Intake and Output: 10/03/18 10/04/18 18:59 06:59 Intake Total 560 200 Output Total 1975 Balance -1415 200 - Medications Medications: Current Medications Acetaminophen (Tylenol 650mg/20.3ml Solution Ud) 650 mg PO Q6 PRN PRN Reason: Temperature Last Admin: 10/02/18 18:26 Dose: 650 mg Albuterol/Ipratropium (Duoneb 3 Mg/0.5 Mg (3 Ml) Ud) 3 ml INH RQ6 [facility] Last Admin: 10/03/18 19:18 Dose: 3 ml Alprazolam (Xanax) 0.25 mg PO HS [facility] Stop: 10/08/18 22:01 Last Admin: 10/02/18 22:50 Dose: 0.25 mg Aspirin (Ecotrin) 81 mg PO DAILY [facility] Last Admin: 10/03/18 09:33 Dose: 81 mg Carvedilol (Coreg) 3.125 mg PO BID [facility] Last Admin: 10/03/18 18:44 Dose: 3.125 mg Dextrose (Dextrose 50% Inj) 0 ml IV STAT PRN; Protocol PRN Reason: Hypoglycemia Protocol Dextrose (Glutose 15) 0 gm PO ONCE PRN; Protocol PRN Reason: Hypoglycemia Protocol Enoxaparin Sodium (Lovenox) 40 mg SC DAILY [facility] Last Admin: 10/03/18 10:56 Dose: 40 mg Glucagon (Glucagen Diagnostic Kit) 0 mg IM STAT PRN; Protocol PRN Reason: Hypoglycemia Protocol Dextrose (Dextrose 5% In Water 1000 Ml) 1,000 mls @ 0 mls/hr IV .Q0M PRN; Protocol PRN Reason: Hypoglycemia Protocol Aztreonam 2 gm/ Sodium (Chloride) 100 mls @ 200 mls/hr IVPB Q8H [facility]; Protocol Last Admin: 10/03/18 14:34 Dose: 200 mls/hr Insulin Human Regular (Novolin R) 0 unit SC ACHS [facility]; Protocol Last Admin: 10/03/18 16:17 Dose: Not Given Losartan Potassium (Cozaar) 100 mg PO DAILY [facility] Last Admin: 10/03/18 09:33 Dose: 100 mg Methylprednisolone (Solu-Medrol) 40 mg IVP Q8H [facility] Last Admin: 10/03/18 16:31 Dose: 40 mg Oxycodone HCl (Oxycontin Extended Release Tab) 10 mg PO Q8H [facility] Stop: 10/04/18 19:01 Last Admin: 10/03/18 18:44 Dose: 10 mg Oxycodone/Acetaminophen (Percocet 5/325 Mg Tab) 1 tab PO Q6H PRN PRN Reason: Pain, severe (8-10) Stop: 10/04/18 16:10 Last Admin: 10/03/18 14:45 Dose: 1 tab Pantoprazole Sodium (Protonix Inj) 40 mg IVP DAILY QUIN Last Admin: 10/03/18 09:34 Dose: 40 mg Zolpidem Tartrate (Ambien) 5 mg PO HS PRN PRN Reason: Insomnia Last Admin: 10/02/18 01:46 Dose: 5 mg - Labs Labs: 10/03/18 06:09 10/03/18 06:00 PT 11.5 SECONDS (9.7-12.2) 10/01/18 12:26 INR 1.1 10/01/18 12:26 APTT 27 SECONDS (21-34) 10/01/18 12:26 Assessment and Plan - Assessment and Plan (Free Text) Plan: Patient seen and evaluated personally by me. Plan of care d/w the biomedical service engineer and as documented
[2018-10-03] MEDS: Enoxaparin 40 mg Syringe SC SCH (10:56)
--- NOTE | 2018-10-03 11:00 | PCM.PSYCH ---
Initial Psychiatric Evaluation - Initial Psychiatric Evaluation Type of Admission: Voluntary Legal Status: Capacity Chief Complaint (in patient's own words): "I can't catch my breath" History of Present Illness and Precipitating Events: Patient is a 58 year old male that went to the [facility] ED on 10/01 and was admitted for shortness of breath. Patient appears unkempt but is open to questioning. Patient was previously diagnosed with anxiety and panic disorder in 1999 for which he takes Xanax. He has never been previously psychiatrically hospitalized. He comments that he feels unhappy with his current life circumstances and with the loss of his mother on 07/19/18. He goes on to say he has been experiencing decreased sleep quality, and decreased mobility but comments that the later is the result of his COPD. He currently has no suicidal or homicidal ideations, but comments that he did experience some suicidal ideation but with no active planning in 1999 when several of his family members in quick succession. He currently lives with his sister and his nephew and is unemployed recieving $500 a month from federal/state aid; he is not currently in a relationship. Patient denies current use of tobacco or drugs, but comments that he used to smoke 1 pack per day for 20 years and took vallium 2 times a week in his youth. He goes on to say that he drinks 2-3 beers a week now, but used to drink a six pack of beer a day for 18 years when he was younger. However, different sources provide conflicting information as to the quantity that the patient drinks daily. Patient denies any visual or auditory hallucinations. He denies any suicidal ideation and homicidal ideation. Current Medications: Active Medications Generic Name Dose Route Start Last Admin Trade Name Freq PRN Reason Stop Dose Admin Acetaminophen 650 mg 10/01/18 21:40 10/02/18 18:26 Tylenol 650mg/20.3ml Solution Ud PO 650 mg Q6 PRN Administration Temperature Albuterol/Ipratropium 3 ml 10/01/18 20:00 10/03/18 08:05 Duoneb 3 Mg/0.5 Mg (3 Ml) Ud INH Not Given RQ6 [facility]DR[facility] Alprazolam 0.25 mg 10/01/18 22:00 10/02/18 22:50 Xanax PO 10/08/18 22:01 0.25 mg HS SANDRA Administration Aspirin 81 mg 10/02/18 16:30 10/03/18 09:33 Ecotrin PO 81 mg DAILY [facility] Administration Carvedilol 3.125 mg 10/02/18 08:45 10/03/18 09:33 Coreg PO 3.125 mg BID [facility]A Administration Dextrose 0 ml 10/01/18 19:11 Dextrose 50% Inj IV STAT PRN Hypoglycemia Protocol Protocol Dextrose 0 gm 10/01/18 19:11 Glutose 15 PO ONCE PRN Hypoglycemia Protocol Protocol Enoxaparin Sodium 40 mg 10/03/18 10:00 10/03/18 10:56 Lovenox SC 40 mg DAILY [facility] Administration Glucagon 0 mg 10/01/18 19:11 Glucagen Diagnostic Kit IM STAT PRN Hypoglycemia Protocol Protocol Dextrose 1,000 mls @ 0 mls/hr 10/01/18 19:11 Dextrose 5% In Water 1000 Ml IV .Q0M PRN Hypoglycemia Protocol Protocol Per Protocol Aztreonam 2 gm/ Sodium 100 mls @ 200 mls/hr 10/02/18 14:00 10/03/18 05:56 Chloride IVPB 200 mls/hr Q8H ASNDRA Administration Protocol Insulin Human Regular 0 unit 10/01/18 22:00 10/03/18 08:03 Novolin R SC Not Given ACHS [facility]DRA Protocol Losartan Potassium 100 mg 10/02/18 08:45 10/03/18 09:33 Cozaar PO 100 mg DAILY [facility] Administration Methylprednisolone 40 mg 10/01/18 16:00 10/03/18 07:25 Solu-Medrol IVP 40 mg Q8H [facility] Administration Oxycodone HCl 10 mg 10/01/18 19:00 10/03/18 10:55 Oxycontin Extended Release Tab PO 10/04/18 19:01 10 mg Q8H [facility] Administration Oxycodone/Acetaminophen 1 tab 10/01/18 16:09 10/03/18 07:24 Percocet 5/325 Mg Tab PO 10/04/18 16:10 1 tab Q6H PRN Administration Pain, severe (8-10) Pantoprazole Sodium 40 mg 10/01/18 16:00 10/03/18 09:34 Protonix Inj IVP 40 mg DAILY [facility] Administration Zolpidem Tartrate 5 mg 10/02/18 01:16 10/02/18 01:46 Ambien PO 5 mg HS PRN Administration Insomnia Past Psychiatric History - Past Psychiatric History Previous Treatment History: None Pertinent Medical Hx (Current Medical&Sleep Prob, Allergies): Allergies Allergy/AdvReac Type Severity Reaction Status Date / Time cefuroxime Allergy RASH Verified 10/01/18 11:25 cephalexin Allergy RASH Verified 10/01/18 11:25 clarithromycin Allergy RASH Verified 10/01/18 11:25 levofloxacin Allergy RASH Verified 10/01/18 11:25 moxifloxacin Allergy RASH Verified 10/01/18 11:25 Acetaminophen/Oxycodone Hydr [Percocet 10/325 mg Tab] 1 tab PO Q4 03/10/17 ALPRAZolam [Xanax] 1 mg PO BID tab 01/25/18 Albuterol HFA [Ventolin HFA 90 mcg/actuation (8 g)] 2 puff IH [id number] PRN #1 inhaler 01/25/18 Allopurinol [Zyloprim] 300 mg PO DAILY #30 tab 01/25/18 Ammonium Lactate 12% [Lac-Hydrin 12% Lotion (225 g)] 225 g TP BID #1 bottle 01/25/18 Docusate [Colace] 100 mg PO TID cap 01/25/18 Ergocalciferol (Vitamin D2) [Vitamin D2] 1 cap PO QWK #12 01/25/18 Famotidine [Pepcid] 1 tab PO DAILY #30 tab 01/25/18 Ferrous Sulfate [Feosol] 325 mg PO DAILY tab 01/25/18 Fluticasone/Vilanterol [Breo Ellipta 100-25 Mcg INH] 1 each IH DAILY #1 blst.w.dev 01/25/18 Furosemide [Lasix] 40 mg PO DAILY tab 01/25/18 Lidocaine 5% [Lidoderm] 1 ea TD DAILY patch 01/25/18 Losartan [Cozaar] 100 mg PO DAILY #30 tab 01/25/18 Tamsulosin [Flomax] 0.4 mg PO ONCE #30 cap 01/25/18 oxyCODONE [oxyCONTIN Extended Release Tab] 20 mg PO Q12 tabsr 01/25/18 predniSONE [predniSONE Tab] 5 mg PO DAILY tab 01/25/18 ALPRAZolam [Xanax] 1 mg PO BID PRN tab 02/05/18 Carvedilol [Coreg] 3.125 mg PO BID tab 02/05/18 Fluticasone/Salmeterol 100/50 [Advair Diskus 100/50] 1 puff INH RQ12 puff 02/05/18 Montelukast [Singulair] 10 mg PO HS tab 02/05/18 metFORMIN [glucOPHAGE] 500 mg PO BID tab 02/05/18 Review of Systems - Review of Systems All systems: reviewed and no additional remarkable complaints except - Psychiatric Psychiatric: Anxiety, Irritability. absent: Suicidal Ideation Mental Status Examination - Personal Presentation Personal Presentation: Looks stated age - Affect Affect: Constricted - Motor Activity Motor Activity: Psychomotor Agitation - Reliability in Providing Information Reliability in Providing Information: Fair - Speech Speech: Organized - Mood Mood: Anxious - Formal Thought Process Formal Thought Process: No Impairment - Obsessions/Compulsions Obsessions: No Compulsions: No - Cognitive Functions Orientation: Person, Place, Situation, Time Sensorium: Alert Attention/Concentration: Attentive Abstract Thinking: [place] Estimate of Intelligence: Below average Judgement: Imparied, as evidence by: Poor judgement, Intact, as evidence by: Insight regarding need for hospitalization - Risk Risk: Withdrawal, Diminished functioning - Limitations Limitations: Living alone DSM 5 DX - DSM 5 DSM 5 Diagnosis: Sedative/hypnotic use disorder severe Sedative /hypnotic withdrawal Alcohol use disorder moderate - Recommended/Plan of Treatment Treatment Recommendations and Plan of Treatment: Sedative/hypnotic use disorder severe Sedative /hypnotic withdrawal Alcohol use disorder moderate Continue Ativan as needed Patient psychiatrically stable and cleared
--- NOTE | 2018-10-03 11:11 | CP.CCUPN ---
<Romel Ge - Last Filed: 10/03/18 11:44> CCU Subjective - Physician Review Subjective (Free Text): PGY-1 ICU progress note for Dr Pablo lazaro Patient is seen and examined at bedside. Patient continues to complain of pain in bilateral legs and hips, as per nurse overnight patient is uncooperative, verbally abusive. Patient refuses bipap treatment. Critical Care Time Spent (in minutes): 40 CCU Objective - Vital Signs / Intake & Output Vital Signs (Last 4 hours): Vital Signs Temp Pulse Resp BP Pulse Ox 10/03/18 10:00 141 H 32 H 96 10/03/18 09:57 145 H 31 H 136/79 97 10/03/18 09:35 154/85 H 10/03/18 09:00 145 H 26 H 98 10/03/18 08:56 144 H 20 154/85 H 98 10/03/18 08:05 25 H 10/03/18 08:00 99.2 F 123 H 12 98 10/03/18 07:58 148 H 22 149/72 97 Intake and Output (Last 8hrs): Intake & Output 10/02/18 10/03/18 10/03/18 22:59 06:59 14:59 Intake Total 1140 900 440 Output Total 800 225 Balance 340 900 215 Intake: Intake, IV Amount 900 900 200 Left Upper arm 900 900 200 Oral 240 240 Output: Urine 800 225 Urine, Voided 800 225 - Physical Exam Head: Positive for: Atraumatic, Normocephalic Pupils: Positive for: PERRL Extroacular Muscles: Positive for: EOMI Conjunctiva: Positive for: Normal Mouth: Positive for: Moist Mucous Membranes Neck: Positive for: Normal Range of Motion Respiratory/Chest: Positive for: Wheezes (bilateral ) Cardiovascular: Positive for: Normal S1, S2, Tachycardic Abdomen: Positive for: Distention, Normal Bowel Sounds Upper Extremity: Positive for: Normal Inspection Lower Extremity: Positive for: Edema, Other (left leg erythema, oozing from left leg, open wound from ruptured blister ) Neurological: Positive for: Speech Normal Skin: Positive for: Warm, Dry, Normal Color Psychiatric: Positive for: Alert - Medications Active Medications: Active Medications Generic Name Dose Route Start Last Admin Trade Name Freq PRN Reason Stop Dose Admin Acetaminophen 650 mg 10/01/18 21:40 10/02/18 18:26 Tylenol 650mg/20.3ml Solution Ud PO 650 mg Q6 PRN Administration Temperature Albuterol/Ipratropium 3 ml 10/01/18 20:00 10/03/18 08:05 Duoneb 3 Mg/0.5 Mg (3 Ml) Ud INH Not Given RQ6 SANDRA Alprazolam 0.25 mg 10/01/18 22:00 10/02/18 22:50 Xanax PO 10/08/18 22:01 0.25 mg HS SANDRA Administration Aspirin 81 mg 10/02/18 16:30 10/03/18 09:33 Ecotrin PO 81 mg DAILY SANDRA Administration Carvedilol 3.125 mg 10/02/18 08:45 10/03/18 09:33 Coreg PO 3.125 mg BID SANDRA Administration Dextrose 0 ml 10/01/18 19:11 Dextrose 50% Inj IV STAT PRN Hypoglycemia Protocol Protocol Dextrose 0 gm 10/01/18 19:11 Glutose 15 PO ONCE PRN Hypoglycemia Protocol Protocol Enoxaparin Sodium 40 mg 10/03/18 10:00 10/03/18 10:56 Lovenox SC 40 mg DAILY SANDRA Administration Glucagon 0 mg 10/01/18 19:11 Glucagen Diagnostic Kit IM STAT PRN Hypoglycemia Protocol Protocol Dextrose 1,000 mls @ 0 mls/hr 10/01/18 19:11 Dextrose 5% In Water 1000 Ml IV .Q0M PRN Hypoglycemia Protocol Protocol Per Protocol Aztreonam 2 gm/ Sodium 100 mls @ 200 mls/hr 10/02/18 14:00 10/03/18 05:56 Chloride IVPB 200 mls/hr Q8H SANDRA Administration Protocol Insulin Human Regular 0 unit 10/01/18 22:00 10/03/18 08:03 Novolin R SC Not Given ACHS SANDRA Protocol Losartan Potassium 100 mg 10/02/18 08:45 10/03/18 09:33 Cozaar PO 100 mg DAILY SANDRA Administration Methylprednisolone 40 mg 10/01/18 16:00 10/03/18 07:25 Solu-Medrol IVP 40 mg Q8H SANDRA Administration Oxycodone HCl 10 mg 10/01/18 19:00 10/03/18 10:55 Oxycontin Extended Release Tab PO 10/04/18 19:01 10 mg Q8H SANDRA Administration Oxycodone/Acetaminophen 1 tab 10/01/18 16:09 10/03/18 07:24 Percocet 5/325 Mg Tab PO 10/04/18 16:10 1 tab Q6H PRN Administration Pain, severe (8-10) Pantoprazole Sodium 40 mg 10/01/18 16:00 10/03/18 09:34 Protonix Inj IVP 40 mg DAILY SANDRA Administration Zolpidem Tartrate 5 mg 10/02/18 01:16 10/02/18 01:46 Ambien PO 5 mg HS PRN Administration Insomnia - Patient Studies Lab Studies: Microbiology Studies 10/01/18 17:33 MRSA Culture (Admit) - Final Naris MRSA NOT DETECTED 10/02/18 14:49 Gram Stain - Final Leg - Left 10/01/18 12:24 Blood Culture - Preliminary Blood NO GROWTH AFTER 24 HOURS 10/01/18 12:21 Blood Culture - Preliminary Blood NO GROWTH AFTER 24 HOURS 10/01/18 13:10 Urine Culture - Final Urine Random No Growth (<1,000 CFU/ML) Lab Studies 10/03/18 10/03/18 10/03/18 Range/Units 07:16 06:09 06:00 WBC 14.8 H (4.8-10.8) K/uL RBC 3.87 L (4.40-5.90) Mil/uL Hgb 11.6 L (12.0-18.0) g/dL Hct 35.8 (35.0-51.0) % MCV 92.5 (80.0-94.0) fL MCH 29.9 (27.0-31.0) pg MCHC 32.3 L (33.0-37.0) g/dL RDW 14.5 (11.5-14.5) % Plt Count 166 (130-400) K/uL MPV 8.3 (7.2-11.7) fL Neut % (Auto) 90.0 H (50.0-75.0) % Lymph % (Auto) 4.7 L (20.0-40.0) % [place] % (Auto) 5.3 (0.0-10.0) % Eos % (Auto) 0.0 (0.0-4.0) % Baso % (Auto) 0.0 (0.0-2.0) % Neut # (Auto) 13.3 H (1.8-7.0) K/uL Lymph # (Auto) 0.7 L (1.0-4.3) K/uL [place] # (Auto) 0.8 (0.0-0.8) K/uL Eos # (Auto) 0.0 (0.0-0.7) K/uL Baso # (Auto) 0.0 (0.0-0.2) K/uL Neutrophils % (Manual) 73 (50-75) % Band Neutrophils % 16 H* (0-2) % Lymphocytes % (Manual) 2 L (20-40) % Monocytes % (Manual) 9 (0-10) % Platelet Estimate Normal (NORMAL) Large Platelets Present Giant Platelets Present D-Dimer, Quantitative (0-243) ng/mlDDU Puncture Site pCO2 (35-45) mm/Hg pO2 (80-100) mm/Hg HCO3 (21-28) mmol/L ABG pH (7.35-7.45) ABG Total CO2 (22-28) mmol/L ABG O2 Saturation (95-98) % ABG Base Excess (-2.0-3.0) mmol/L ABG Hemoglobin (11.7-17.4) g/dL ABG Carboxyhemoglobin (0.5-1.5) % POC ABG HHb (Measured) (0.0-5.0) % ABG Methemoglobin (0.0-3.0) % Von Test ABG Potassium (3.6-5.2) mmol/L A-a O2 Difference mm/Hg Respiratory Index Hgb O2 Saturation (95.0-98.0) % Sodium 138 (132-148) mmol/l Chloride 102 (98-107) mmol/L Glucose (75-110) mg/dl Lactate (0.7-2.1) mmol/L Liter Flow Vent Mode FiO2 % Inspiratory BiPAP Expiratory BiPAP Potassium 3.9 (3.6-5.2) mmol/L Carbon Dioxide 28 (22-30) mmol/L Anion Gap 13 (10-20) BUN 21 H (9-20) mg/dL Creatinine 0.7 L (0.8-1.5) mg/dL Est GFR ( Amer) > 60 Est GFR (Non-Af Amer) > 60 POC Glucose (mg/dL) 150 H (65-110) mg/dL Random Glucose 134 H D (75-110) mg/dL Calcium 8.5 L (8.6-10.4) mg/dl Phosphorus 2.1 L (2.5-4.5) mg/dL Magnesium 2.4 H (1.6-2.3) mg/dL Total Bilirubin 0.5 (0.2-1.3) mg/dL AST 39 (17-59) U/L ALT 47 (21-72) U/L Alkaline Phosphatase 78 (38-126) U/L Total Protein 6.4 (6.3-8.3) g/dL Albumin 4.0 (3.5-5.0) g/dL Globulin 2.5 (2.2-3.9) gm/dL Albumin/Globulin Ratio 1.6 (1.0-2.1) Arterial Blood Potassium (3.6-5.2) mmol/L 10/03/18 10/02/18 10/02/18 Range/Units 05:15 22:00 21:20 WBC (4.8-10.8) K/uL RBC (4.40-5.90) Mil/uL Hgb (12.0-18.0) g/dL Hct (35.0-51.0) % MCV (80.0-94.0) fL MCH (27.0-31.0) pg MCHC (33.0-37.0) g/dL RDW (11.5-14.5) % Plt Count (130-400) K/uL MPV (7.2-11.7) fL Neut % (Auto) (50.0-75.0) % Lymph % (Auto) (20.0-40.0) % [place] % (Auto) (0.0-10.0) % Eos % (Auto) (0.0-4.0) % Baso % (Auto) (0.0-2.0) % Neut # (Auto) (1.8-7.0) K/uL Lymph # (Auto) (1.0-4.3) K/uL [place] # (Auto) (0.0-0.8) K/uL Eos # (Auto) (0.0-0.7) K/uL Baso # (Auto) (0.0-0.2) K/uL Neutrophils % (Manual) (50-75) % Band Neutrophils % (0-2) % Lymphocytes % (Manual) (20-40) % Monocytes % (Manual) (0-10) % Platelet Estimate (NORMAL) Large Platelets Giant Platelets D-Dimer, Quantitative (0-243) ng/mlDDU Puncture Site Rr Rr pCO2 53 H 47 H (35-45) mm/Hg pO2 99 306 H (80-100) mm/Hg HCO3 25.9 24.4 (21-28) mmol/L ABG pH 7.33 L 7.34 L (7.35-7.45) ABG Total CO2 29.5 H 26.8 (22-28) mmol/L ABG O2 Saturation 97.9 98.6 H (95-98) % ABG Base Excess 1.2 -0.8 (-2.0-3.0) mmol/L ABG Hemoglobin 11.4 L (11.7-17.4) g/dL ABG Carboxyhemoglobin 1.0 (0.5-1.5) % POC ABG HHb (Measured) 2.1 (0.0-5.0) % ABG Methemoglobin 0.5 (0.0-3.0) % Von Test Pos Po ABG Potassium 3.5 L (3.6-5.2) mmol/L A-a O2 Difference 191.0 134.0 mm/Hg Respiratory Index 1.9 0.4 Hgb O2 Saturation 96.4 (95.0-98.0) % Sodium 144.0 (132-148) mmol/l Chloride 113.0 H (98-107) mmol/L Glucose 155 H (75-110) mg/dl Lactate 1.0 (0.7-2.1) mmol/L Liter Flow 30.0 Vent Mode Bipap FiO2 50.0 70.0 % Inspiratory BiPAP 16 Expiratory BiPAP 5 Potassium (3.6-5.2) mmol/L Carbon Dioxide (22-30) mmol/L Anion Gap (10-20) BUN (9-20) mg/dL Creatinine (0.8-1.5) mg/dL Est GFR ( Amer) Est GFR (Non-Af Amer) POC Glucose (mg/dL) 157 H (65-110) mg/dL Random Glucose (75-110) mg/dL Calcium (8.6-10.4) mg/dl Phosphorus (2.5-4.5) mg/dL Magnesium (1.6-2.3) mg/dL Total Bilirubin (0.2-1.3) mg/dL AST (17-59) U/L ALT (21-72) U/L Alkaline Phosphatase (38-126) U/L Total Protein (6.3-8.3) g/dL Albumin (3.5-5.0) g/dL Globulin (2.2-3.9) gm/dL Albumin/Globulin Ratio (1.0-2.1) Arterial Blood Potassium 3.5 L (3.6-5.2) mmol/L 10/02/18 10/02/18 10/02/18 Range/Units 16:04 11:39 11:16 WBC (4.8-10.8) K/uL RBC (4.40-5.90) Mil/uL Hgb (12.0-18.0) g/dL Hct (35.0-51.0) % MCV (80.0-94.0) fL MCH (27.0-31.0) pg MCHC (33.0-37.0) g/dL RDW (11.5-14.5) % Plt Count (130-400) K/uL MPV (7.2-11.7) fL Neut % (Auto) (50.0-75.0) % Lymph % (Auto) (20.0-40.0) % [place] % (Auto) (0.0-10.0) % Eos % (Auto) (0.0-4.0) % Baso % (Auto) (0.0-2.0) % Neut # (Auto) (1.8-7.0) K/uL Lymph # (Auto) (1.0-4.3) K/uL [place] # (Auto) (0.0-0.8) K/uL Eos # (Auto) (0.0-0.7) K/uL Baso # (Auto) (0.0-0.2) K/uL Neutrophils % (Manual) (50-75) % Band Neutrophils % (0-2) % Lymphocytes % (Manual) (20-40) % Monocytes % (Manual) (0-10) % Platelet Estimate (NORMAL) Large Platelets Giant Platelets D-Dimer, Quantitative 604 H (0-243) ng/mlDDU Puncture Site pCO2 (35-45) mm/Hg pO2 (80-100) mm/Hg HCO3 (21-28) mmol/L ABG pH (7.35-7.45) ABG Total CO2 (22-28) mmol/L ABG O2 Saturation (95-98) % ABG Base Excess (-2.0-3.0) mmol/L ABG Hemoglobin (11.7-17.4) g/dL ABG Carboxyhemoglobin (0.5-1.5) % POC ABG HHb (Measured) (0.0-5.0) % ABG Methemoglobin (0.0-3.0) % Von Test ABG Potassium (3.6-5.2) mmol/L A-a O2 Difference mm/Hg Respiratory Index Hgb O2 Saturation (95.0-98.0) % Sodium (132-148) mmol/l Chloride (98-107) mmol/L Glucose (75-110) mg/dl Lactate (0.7-2.1) mmol/L Liter Flow Vent Mode FiO2 % Inspiratory BiPAP Expiratory BiPAP Potassium (3.6-5.2) mmol/L Carbon Dioxide (22-30) mmol/L Anion Gap (10-20) BUN (9-20) mg/dL Creatinine (0.8-1.5) mg/dL Est GFR ( Amer) Est GFR (Non-Af Amer) POC Glucose (mg/dL) 207 H 136 H (65-110) mg/dL Random Glucose (75-110) mg/dL Calcium (8.6-10.4) mg/dl Phosphorus (2.5-4.5) mg/dL Magnesium (1.6-2.3) mg/dL Total Bilirubin (0.2-1.3) mg/dL AST (17-59) U/L ALT (21-72) U/L Alkaline Phosphatase (38-126) U/L Total Protein (6.3-8.3) g/dL Albumin (3.5-5.0) g/dL Globulin (2.2-3.9) gm/dL Albumin/Globulin Ratio (1.0-2.1) Arterial Blood Potassium (3.6-5.2) mmol/L Laboratory Results - last 24 hr 10/02/18 10/02/18 10/02/18 11:16 11:39 16:04 WBC RBC Hgb Hct MCV MCH MCHC RDW Plt Count MPV Neut % (Auto) Lymph % (Auto) [place] % (Auto) Eos % (Auto) Baso % (Auto) Neut # (Auto) Lymph # (Auto) [place] # (Auto) Eos # (Auto) Baso # (Auto) Neutrophils % (Manual) Band Neutrophils % Lymphocytes % (Manual) Monocytes % (Manual) Platelet Estimate Large Platelets Giant Platelets D-Dimer, Quantitative 604 H Puncture Site pCO2 pO2 HCO3 ABG pH ABG Total CO2 ABG O2 Saturation ABG Base Excess ABG Hemoglobin ABG Carboxyhemoglobin POC ABG HHb (Measured) ABG Methemoglobin Von Test ABG Potassium A-a O2 Difference Respiratory Index Hgb O2 Saturation Sodium Chloride Glucose Lactate Liter Flow Vent Mode FiO2 Inspiratory BiPAP Expiratory BiPAP Potassium Carbon Dioxide Anion Gap BUN Creatinine Est GFR ( Amer) Est GFR (Non-Af Amer) POC Glucose (mg/dL) 136 H 207 H Random Glucose Calcium Phosphorus Magnesium Total Bilirubin AST ALT Alkaline Phosphatase Total Protein Albumin Globulin Albumin/Globulin Ratio Arterial Blood Potassium 10/02/18 10/02/18 10/03/18 21:20 22:00 05:15 WBC RBC Hgb Hct MCV MCH MCHC RDW Plt Count MPV Neut % (Auto) Lymph % (Auto) [place] % (Auto) Eos % (Auto) Baso % (Auto) Neut # (Auto) Lymph # (Auto) [place] # (Auto) Eos # (Auto) Baso # (Auto) Neutrophils % (Manual) Band Neutrophils % Lymphocytes % (Manual) Monocytes % (Manual) Platelet Estimate Large Platelets Giant Platelets D-Dimer, Quantitative Puncture Site Rr Rr pCO2 47 H 53 H pO2 306 H 99 HCO3 24.4 25.9 ABG pH 7.34 L 7.33 L ABG Total CO2 26.8 29.5 H ABG O2 Saturation 98.6 H 97.9 ABG Base Excess -0.8 1.2 ABG Hemoglobin 11.4 L ABG Carboxyhemoglobin 1.0 POC ABG HHb (Measured) 2.1 ABG Methemoglobin 0.5 Von Test Po Pos ABG Potassium 3.5 L A-a O2 Difference 134.0 191.0 Respiratory Index 0.4 1.9 Hgb O2 Saturation 96.4 Sodium 144.0 Chloride 113.0 H Glucose 155 H Lactate 1.0 Liter Flow 30.0 Vent Mode Bipap FiO2 70.0 50.0 Inspiratory BiPAP 16 Expiratory BiPAP 5 Potassium Carbon Dioxide Anion Gap BUN Creatinine Est GFR ( Amer) Est GFR (Non-Af Amer) POC Glucose (mg/dL) 157 H Random Glucose Calcium Phosphorus Magnesium Total Bilirubin AST ALT Alkaline Phosphatase Total Protein Albumin Globulin Albumin/Globulin Ratio Arterial Blood Potassium 3.5 L 10/03/18 10/03/18 10/03/18 06:00 06:09 07:16 WBC 14.8 H RBC 3.87 L Hgb 11.6 L Hct 35.8 MCV 92.5 MCH 29.9 MCHC 32.3 L RDW 14.5 Plt Count 166 MPV 8.3 Neut % (Auto) 90.0 H Lymph % (Auto) 4.7 L [place] % (Auto) 5.3 Eos % (Auto) 0.0 Baso % (Auto) 0.0 Neut # (Auto) 13.3 H Lymph # (Auto) 0.7 L [place] # (Auto) 0.8 Eos # (Auto) 0.0 Baso # (Auto) 0.0 Neutrophils % (Manual) 73 Band Neutrophils % 16 H* Lymphocytes % (Manual) 2 L Monocytes % (Manual) 9 Platelet Estimate Normal Large Platelets Present Giant Platelets Present D-Dimer, Quantitative Puncture Site pCO2 pO2 HCO3 ABG pH ABG Total CO2 ABG O2 Saturation ABG Base Excess ABG Hemoglobin ABG Carboxyhemoglobin POC ABG HHb (Measured) ABG Methemoglobin Von Test ABG Potassium A-a O2 Difference Respiratory Index Hgb O2 Saturation Sodium 138 Chloride 102 Glucose Lactate Liter Flow Vent Mode FiO2 Inspiratory BiPAP Expiratory BiPAP Potassium 3.9 Carbon Dioxide 28 Anion Gap 13 BUN 21 H Creatinine 0.7 L Est GFR ( Amer) > 60 Est GFR (Non-Af Amer) > 60 POC Glucose (mg/dL) 150 H Random Glucose 134 H D Calcium 8.5 L Phosphorus 2.1 L Magnesium 2.4 H Total Bilirubin 0.5 AST 39 ALT 47 Alkaline Phosphatase 78 Total Protein 6.4 Albumin 4.0 Globulin 2.5 Albumin/Globulin Ratio 1.6 Arterial Blood Potassium Radiology Impressions: Radiology Impressions Chest CT 10/02/18 17:01 IMPRESSION: No large, central pulmonary emboli. Limitations of the current examination: Nondiagnostic study beyond the lobar branches. Poor opacification of main and peripheral pulmonary arterial branches. Fingerstick Blood Sugar Results: 150 Critical Care Progress Note - Nutrition Nutrition: Nutrition Category Date Time Status Consistent Carbohydrate [DIET] Diets 10/02/18 Lunch Active Assessment/Plan - Assessment and Plan (Free Text) Plan: Patient is a 58 year old male with pmhx of COPD, Bladder CA, CHF, DM, HTN, per ipheral edema, TONIO, alcohol/substancer abuse, chronic b/l hip pain was brought to the ED for shortness of breath, in ED with respiratory distress, refused bipap and intubation, on high flow O2 at this time, with left leg cellulitis, elevated lactate and wbc on ED labs. improved temperature, on cooling blanket, continue abx for possible celullitis coverage, CTA and LE doppler negative for DVT and PE, will continue to recommend Bipap, patient refuses, palliative care consult for DNI as patient refuses intubation. Neuro AAOx3 xanax and ambien for agitation Temperature 99.2F now - improving cont cooling blanket as needed Polusubstance abuse - consult Psych - Dr Cortés Cardio hx of CHF echo -normal left ventricular systolic function and wall motion. Hx of HTN - coreg and losartan CTA - no PE b/l LE doppler - negative D- Dimer - 604 Stopped lovenox 100mg PO BID - started lovenox 40mg SC daily cardio consult - Dr crews -f/u Pulm COPD exarcerbation high flow 40% FiO2 ABG, increased CO2, Ph 7.33 refuses BIPAP, refuses intubation Solumedrol 40 mg IVP Q8H duonebs Q6H lasix 40mg IVP x ONCE Pulm consult - Dr Shah follow up this am portable cxray GI consistent carb diet protonix Endo hx of DM ISS medium protocol accuchecks ACHS hypoglycemia protocol ID SIRS criteria, possible cellulitis left leg wBC 11.8 today, bands decreasing to 16 from 23 Aztreonam 2mg Q8H allergy to cephalexin, cefuroxime blood, urine cx no growth x 24 hours gram negative osmani - wound culture Wound care for left LE ID - Dr Gurpreet Elam BUN/Cr unchanged continue to monitor renal function PPX GI: protonix DVT: Lovenox 40SC Q daily, SCDs c/i due to leg cellulitis Percocet and Oxycodone for chronic pain, tylenol PRN Palliatiave care consult - For eval of Plan discussed with Dr Pablo Ge, PGY-1 - Date & Time Date: 10/03/18 Time: 08:00 <Zeb Shah S - Last Filed: 10/03/18 17:44> CCU Objective - Vital Signs / Intake & Output Vital Signs (Last 4 hours): Vital Signs Temp Pulse Resp BP Pulse Ox 10/03/18 16:27 127 H 25 H 127/77 97 10/03/18 16:00 99.5 F 138 H 31 H 89 L 10/03/18 15:27 144 H 29 H 133/76 97 10/03/18 15:00 144 H 29 H 98 10/03/18 14:27 129 H 31 H 141/81 99 10/03/18 14:00 121 H 24 95 Intake and Output (Last 8hrs): Intake & Output 10/03/18 10/03/18 10/03/18 06:59 14:59 22:59 Intake Total 900 560 Output Total 1225 Balance 900 -665 Intake: Intake, IV Amount 900 200 Left Upper arm 900 200 Oral 360 Output: Urine 1225 Urine, Voided 1225 - Medications Active Medications: Active Medications Generic Name Dose Route Start Last Admin Trade Name Richardq PRN Reason Stop Dose Admin Acetaminophen 650 mg 10/01/18 21:40 10/02/18 18:26 Tylenol 650mg/20.3ml Solution Ud PO 650 mg Q6 PRN Administration Temperature Albuterol/Ipratropium 3 ml 10/01/18 20:00 10/03/18 13:40 Duoneb 3 Mg/0.5 Mg (3 Ml) Ud INH 3 ml RQ6 SANDRA Administration Alprazolam 0.25 mg 10/01/18 22:00 10/02/18 22:50 Xanax PO 10/08/18 22:01 0.25 mg HS SANDRA Administration Aspirin 81 mg 10/02/18 16:30 10/03/18 09:33 Ecotrin PO 81 mg DAILY SANDRA Administration Carvedilol 3.125 mg 10/02/18 08:45 10/03/18 09:33 Coreg PO 3.125 mg BID SANDRA Administration Dextrose 0 ml 10/01/18 19:11 Dextrose 50% Inj IV STAT PRN Hypoglycemia Protocol Protocol Dextrose 0 gm 10/01/18 19:11 Glutose 15 PO ONCE PRN Hypoglycemia Protocol Protocol Enoxaparin Sodium 40 mg 10/03/18 10:00 10/03/18 10:56 Lovenox SC 40 mg DAILY SANDRA Administration Glucagon 0 mg 10/01/18 19:11 Glucagen Diagnostic Kit IM STAT PRN Hypoglycemia Protocol Protocol Dextrose 1,000 mls @ 0 mls/hr 10/01/18 19:11 Dextrose 5% In Water 1000 Ml IV .Q0M PRN Hypoglycemia Protocol Protocol Per Protocol Aztreonam 2 gm/ Sodium 100 mls @ 200 mls/hr 10/02/18 14:00 10/03/18 14:34 Chloride IVPB 200 mls/hr Q8H SANDRA Administration Protocol Insulin Human Regular 0 unit 10/01/18 22:00 10/03/18 16:17 Novolin R SC Not Given ACHS SANDRA Protocol Losartan Potassium 100 mg 10/02/18 08:45 10/03/18 09:33 Cozaar PO 100 mg DAILY SANDRA Administration Methylprednisolone 40 mg 10/01/18 16:00 10/03/18 16:31 Solu-Medrol IVP 40 mg Q8H SANDRA Administration Oxycodone HCl 10 mg 10/01/18 19:00 10/03/18 10:55 Oxycontin Extended Release Tab PO 10/04/18 19:01 10 mg Q8H SANDRA Administration Oxycodone/Acetaminophen 1 tab 10/01/18 16:09 10/03/18 14:45 Percocet 5/325 Mg Tab PO 10/04/18 16:10 1 tab Q6H PRN Administration Pain, severe (8-10) Pantoprazole Sodium 40 mg 10/01/18 16:00 10/03/18 09:34 Protonix Inj IVP 40 mg DAILY SANDRA Administration Zolpidem Tartrate 5 mg 10/02/18 01:16 10/02/18 01:46 Ambien PO 5 mg HS PRN Administration Insomnia - Patient Studies Lab Studies: Microbiology Studies 10/01/18 12:24 Blood Culture - Preliminary Blood NO GROWTH AFTER 48 HOURS 10/01/18 12:21 Blood Culture - Preliminary Blood NO GROWTH AFTER 48 HOURS 10/02/18 14:49 Gram Stain - Final Leg - Left Wound Culture - Preliminary Gram Negative Osmani 10/01/18 17:33 MRSA Culture (Admit) - Final Naris MRSA NOT DETECTED Lab Studies 10/03/18 10/03/18 10/03/18 Range/Units 16:10 11:30 07:16 WBC (4.8-10.8) K/uL RBC (4.40-5.90) Mil/uL Hgb (12.0-18.0) g/dL Hct (35.0-51.0) % MCV (80.0-94.0) fL MCH (27.0-31.0) pg MCHC (33.0-37.0) g/dL RDW (11.5-14.5) % Plt Count (130-400) K/uL MPV (7.2-11.7) fL Neut % (Auto) (50.0-75.0) % Lymph % (Auto) (20.0-40.0) % [place] % (Auto) (0.0-10.0) % Eos % (Auto) (0.0-4.0) % Baso % (Auto) (0.0-2.0) % Neut # (Auto) (1.8-7.0) K/uL Lymph # (Auto) (1.0-4.3) K/uL [place] # (Auto) (0.0-0.8) K/uL Eos # (Auto) (0.0-0.7) K/uL Baso # (Auto) (0.0-0.2) K/uL Neutrophils % (Manual) (50-75) % Band Neutrophils % (0-2) % Lymphocytes % (Manual) (20-40) % Monocytes % (Manual) (0-10) % Platelet Estimate (NORMAL) Large Platelets Giant Platelets Puncture Site pCO2 (35-45) mm/Hg pO2 (80-100) mm/Hg HCO3 (21-28) mmol/L ABG pH (7.35-7.45) ABG Total CO2 (22-28) mmol/L ABG O2 Saturation (95-98) % ABG Base Excess (-2.0-3.0) mmol/L ABG Hemoglobin (11.7-17.4) g/dL ABG Carboxyhemoglobin (0.5-1.5) % POC ABG HHb (Measured) (0.0-5.0) % ABG Methemoglobin (0.0-3.0) % Von Test ABG Potassium (3.6-5.2) mmol/L A-a O2 Difference mm/Hg Respiratory Index Hgb O2 Saturation (95.0-98.0) % Sodium (132-148) mmol/l Chloride (98-107) mmol/L Glucose (75-110) mg/dl Lactate (0.7-2.1) mmol/L Liter Flow Vent Mode FiO2 % Inspiratory BiPAP Expiratory BiPAP Potassium (3.6-5.2) mmol/L Carbon Dioxide (22-30) mmol/L Anion Gap (10-20) BUN (9-20) mg/dL Creatinine (0.8-1.5) mg/dL Est GFR ( Amer) Est GFR (Non-Af Amer) POC Glucose (mg/dL) 146 H 212 H 150 H (65-110) mg/dL Random Glucose (75-110) mg/dL Calcium (8.6-10.4) mg/dl Phosphorus (2.5-4.5) mg/dL Magnesium (1.6-2.3) mg/dL Total Bilirubin (0.2-1.3) mg/dL AST (17-59) U/L ALT (21-72) U/L Alkaline Phosphatase (38-126) U/L Total Protein (6.3-8.3) g/dL Albumin (3.5-5.0) g/dL Globulin (2.2-3.9) gm/dL Albumin/Globulin Ratio (1.0-2.1) Arterial Blood Potassium (3.6-5.2) mmol/L 10/03/18 10/03/18 10/03/18 Range/Units 06:09 06:00 05:15 WBC 14.8 H (4.8-10.8) K/uL RBC 3.87 L (4.40-5.90) Mil/uL Hgb 11.6 L (12.0-18.0) g/dL Hct 35.8 (35.0-51.0) % MCV 92.5 (80.0-94.0) fL MCH 29.9 (27.0-31.0) pg MCHC 32.3 L (33.0-37.0) g/dL RDW 14.5 (11.5-14.5) % Plt Count 166 (130-400) K/uL MPV 8.3 (7.2-11.7) fL Neut % (Auto) 90.0 H (50.0-75.0) % Lymph % (Auto) 4.7 L (20.0-40.0) % [place] % (Auto) 5.3 (0.0-10.0) % Eos % (Auto) 0.0 (0.0-4.0) % Baso % (Auto) 0.0 (0.0-2.0) % Neut # (Auto) 13.3 H (1.8-7.0) K/uL Lymph # (Auto) 0.7 L (1.0-4.3) K/uL [place] # (Auto) 0.8 (0.0-0.8) K/uL Eos # (Auto) 0.0 (0.0-0.7) K/uL Baso # (Auto) 0.0 (0.0-0.2) K/uL Neutrophils % (Manual) 73 (50-75) % Band Neutrophils % 16 H* (0-2) % Lymphocytes % (Manual) 2 L (20-40) % Monocytes % (Manual) 9 (0-10) % Platelet Estimate Normal (NORMAL) Large Platelets Present Giant Platelets Present Puncture Site Rr pCO2 53 H (35-45) mm/Hg pO2 99 (80-100) mm/Hg HCO3 25.9 (21-28) mmol/L ABG pH 7.33 L (7.35-7.45) ABG Total CO2 29.5 H (22-28) mmol/L ABG O2 Saturation 97.9 (95-98) % ABG Base Excess 1.2 (-2.0-3.0) mmol/L ABG Hemoglobin 11.4 L (11.7-17.4) g/dL ABG Carboxyhemoglobin 1.0 (0.5-1.5) % POC ABG HHb (Measured) 2.1 (0.0-5.0) % ABG Methemoglobin 0.5 (0.0-3.0) % Von Test Pos ABG Potassium (3.6-5.2) mmol/L A-a O2 Difference 191.0 mm/Hg Respiratory Index 1.9 Hgb O2 Saturation 96.4 (95.0-98.0) % Sodium 138 (132-148) mmol/l Chloride 102 (98-107) mmol/L Glucose (75-110) mg/dl Lactate (0.7-2.1) mmol/L Liter Flow 30.0 Vent Mode FiO2 50.0 % Inspiratory BiPAP Expiratory BiPAP Potassium 3.9 (3.6-5.2) mmol/L Carbon Dioxide 28 (22-30) mmol/L Anion Gap 13 (10-20) BUN 21 H (9-20) mg/dL Creatinine 0.7 L (0.8-1.5) mg/dL Est GFR ( Amer) > 60 Est GFR (Non-Af Amer) > 60 POC Glucose (mg/dL) (65-110) mg/dL Random Glucose 134 H D (75-110) mg/dL Calcium 8.5 L (8.6-10.4) mg/dl Phosphorus 2.1 L (2.5-4.5) mg/dL Magnesium 2.4 H (1.6-2.3) mg/dL Total Bilirubin 0.5 (0.2-1.3) mg/dL AST 39 (17-59) U/L ALT 47 (21-72) U/L Alkaline Phosphatase 78 (38-126) U/L Total Protein 6.4 (6.3-8.3) g/dL Albumin 4.0 (3.5-5.0) g/dL Globulin 2.5 (2.2-3.9) gm/dL Albumin/Globulin Ratio 1.6 (1.0-2.1) Arterial Blood Potassium (3.6-5.2) mmol/L 10/02/18 10/02/18 Range/Units 22:00 21:20 WBC (4.8-10.8) K/uL RBC (4.40-5.90) Mil/uL Hgb (12.0-18.0) g/dL Hct (35.0-51.0) % MCV (80.0-94.0) fL MCH (27.0-31.0) pg MCHC (33.0-37.0) g/dL RDW (11.5-14.5) % Plt Count (130-400) K/uL MPV (7.2-11.7) fL Neut % (Auto) (50.0-75.0) % Lymph % (Auto) (20.0-40.0) % [place] % (Auto) (0.0-10.0) % Eos % (Auto) (0.0-4.0) % Baso % (Auto) (0.0-2.0) % Neut # (Auto) (1.8-7.0) K/uL Lymph # (Auto) (1.0-4.3) K/uL [place] # (Auto) (0.0-0.8) K/uL Eos # (Auto) (0.0-0.7) K/uL Baso # (Auto) (0.0-0.2) K/uL Neutrophils % (Manual) (50-75) % Band Neutrophils % (0-2) % Lymphocytes % (Manual) (20-40) % Monocytes % (Manual) (0-10) % Platelet Estimate (NORMAL) Large Platelets Giant Platelets Puncture Site Rr pCO2 47 H (35-45) mm/Hg pO2 306 H (80-100) mm/Hg HCO3 24.4 (21-28) mmol/L ABG pH 7.34 L (7.35-7.45) ABG Total CO2 26.8 (22-28) mmol/L ABG O2 Saturation 98.6 H (95-98) % ABG Base Excess -0.8 (-2.0-3.0) mmol/L ABG Hemoglobin (11.7-17.4) g/dL ABG Carboxyhemoglobin (0.5-1.5) % POC ABG HHb (Measured) (0.0-5.0) % ABG Methemoglobin (0.0-3.0) % Von Test Po ABG Potassium 3.5 L (3.6-5.2) mmol/L A-a O2 Difference 134.0 mm/Hg Respiratory Index 0.4 Hgb O2 Saturation (95.0-98.0) % Sodium 144.0 (132-148) mmol/l Chloride 113.0 H (98-107) mmol/L Glucose 155 H (75-110) mg/dl Lactate 1.0 (0.7-2.1) mmol/L Liter Flow Vent Mode Bipap FiO2 70.0 % Inspiratory BiPAP 16 Expiratory BiPAP 5 Potassium (3.6-5.2) mmol/L Carbon Dioxide (22-30) mmol/L Anion Gap (10-20) BUN (9-20) mg/dL Creatinine (0.8-1.5) mg/dL Est GFR ( Amer) Est GFR (Non-Af Amer) POC Glucose (mg/dL) 157 H (65-110) mg/dL Random Glucose (75-110) mg/dL Calcium (8.6-10.4) mg/dl Phosphorus (2.5-4.5) mg/dL Magnesium (1.6-2.3) mg/dL Total Bilirubin (0.2-1.3) mg/dL AST (17-59) U/L ALT (21-72) U/L Alkaline Phosphatase (38-126) U/L Total Protein (6.3-8.3) g/dL Albumin (3.5-5.0) g/dL Globulin (2.2-3.9) gm/dL Albumin/Globulin Ratio (1.0-2.1) Arterial Blood Potassium 3.5 L (3.6-5.2) mmol/L Laboratory Results - last 24 hr 10/02/18 10/02/18 10/03/18 21:20 22:00 05:15 WBC RBC Hgb Hct MCV MCH MCHC RDW Plt Count MPV Neut % (Auto) Lymph % (Auto) [place] % (Auto) Eos % (Auto) Baso % (Auto) Neut # (Auto) Lymph # (Auto) [place] # (Auto) Eos # (Auto) Baso # (Auto) Neutrophils % (Manual) Band Neutrophils % Lymphocytes % (Manual) Monocytes % (Manual) Platelet Estimate Large Platelets Giant Platelets Puncture Site Rr Rr pCO2 47 H 53 H pO2 306 H 99 HCO3 24.4 25.9 ABG pH 7.34 L 7.33 L ABG Total CO2 26.8 29.5 H ABG O2 Saturation 98.6 H 97.9 ABG Base Excess -0.8 1.2 ABG Hemoglobin 11.4 L ABG Carboxyhemoglobin 1.0 POC ABG HHb (Measured) 2.1 ABG Methemoglobin 0.5 Von Test Po Pos ABG Potassium 3.5 L A-a O2 Difference 134.0 191.0 Respiratory Index 0.4 1.9 Hgb O2 Saturation 96.4 Sodium 144.0 Chloride 113.0 H Glucose 155 H Lactate 1.0 Liter Flow 30.0 Vent Mode Bipap FiO2 70.0 50.0 Inspiratory BiPAP 16 Expiratory BiPAP 5 Potassium Carbon Dioxide Anion Gap BUN Creatinine Est GFR ( Amer) Est GFR (Non-Af Amer) POC Glucose (mg/dL) 157 H Random Glucose Calcium Phosphorus Magnesium Total Bilirubin AST ALT Alkaline Phosphatase Total Protein Albumin Globulin Albumin/Globulin Ratio Arterial Blood Potassium 3.5 L 10/03/18 10/03/18 10/03/18 06:00 06:09 07:16 WBC 14.8 H RBC 3.87 L Hgb 11.6 L Hct 35.8 MCV 92.5 MCH 29.9 MCHC 32.3 L RDW 14.5 Plt Count 166 MPV 8.3 Neut % (Auto) 90.0 H Lymph % (Auto) 4.7 L [place] % (Auto) 5.3 Eos % (Auto) 0.0 Baso % (Auto) 0.0 Neut # (Auto) 13.3 H Lymph # (Auto) 0.7 L [place] # (Auto) 0.8 Eos # (Auto) 0.0 Baso # (Auto) 0.0 Neutrophils % (Manual) 73 Band Neutrophils % 16 H* Lymphocytes % (Manual) 2 L Monocytes % (Manual) 9 Platelet Estimate Normal Large Platelets Present Giant Platelets Present Puncture Site pCO2 pO2 HCO3 ABG pH ABG Total CO2 ABG O2 Saturation ABG Base Excess ABG Hemoglobin ABG Carboxyhemoglobin POC ABG HHb (Measured) ABG Methemoglobin Von Test ABG Potassium A-a O2 Difference Respiratory Index Hgb O2 Saturation Sodium 138 Chloride 102 Glucose Lactate Liter Flow Vent Mode FiO2 Inspiratory BiPAP Expiratory BiPAP Potassium 3.9 Carbon Dioxide 28 Anion Gap 13 BUN 21 H Creatinine 0.7 L Est GFR ( Amer) > 60 Est GFR (Non-Af Amer) > 60 POC Glucose (mg/dL) 150 H Random Glucose 134 H D Calcium 8.5 L Phosphorus 2.1 L Magnesium 2.4 H Total Bilirubin 0.5 AST 39 ALT 47 Alkaline Phosphatase 78 Total Protein 6.4 Albumin 4.0 Globulin 2.5 Albumin/Globulin Ratio 1.6 Arterial Blood Potassium 10/03/18 10/03/18 11:30 16:10 WBC RBC Hgb Hct MCV MCH MCHC RDW Plt Count MPV Neut % (Auto) Lymph % (Auto) [place] % (Auto) Eos % (Auto) Baso % (Auto) Neut # (Auto) Lymph # (Auto) [place] # (Auto) Eos # (Auto) Baso # (Auto) Neutrophils % (Manual) Band Neutrophils % Lymphocytes % (Manual) Monocytes % (Manual) Platelet Estimate Large Platelets Giant Platelets Puncture Site pCO2 pO2 HCO3 ABG pH ABG Total CO2 ABG O2 Saturation ABG Base Excess ABG Hemoglobin ABG Carboxyhemoglobin POC ABG HHb (Measured) ABG Methemoglobin Von Test ABG Potassium A-a O2 Difference Respiratory Index Hgb O2 Saturation Sodium Chloride Glucose Lactate Liter Flow Vent Mode FiO2 Inspiratory BiPAP Expiratory BiPAP Potassium Carbon Dioxide Anion Gap BUN Creatinine Est GFR ( Amer) Est GFR (Non-Af Amer) POC Glucose (mg/dL) 212 H 146 H Random Glucose Calcium Phosphorus Magnesium Total Bilirubin AST ALT Alkaline Phosphatase Total Protein Albumin Globulin Albumin/Globulin Ratio Arterial Blood Potassium Radiology Impressions: Radiology Impressions Chest CT 10/02/18 17:01 IMPRESSION: No large, central pulmonary emboli. Limitations of the current examination: Nondiagnostic study beyond the lobar branches. Poor opacification of main and peripheral pulmonary arterial branches. Chest X-Ray 10/03/18 10:24 Impression: Moderate venous congestion. Right hilar prominence. Elevated right hemidiaphragm. Small to moderate left pleural effusion with adjacent left basilar consolidation. Right paratracheal prominence may represent prominent vasculature. Cardiomegaly. Degenerative changes in the spine and shoulders. Biapical pleural thickening with upper lobe granulomatous changes. Critical Care Progress Note - Nutrition Nutrition: Nutrition Category Date Time Status Consistent Carbohydrate [DIET] Diets 10/02/18 Lunch Active Attending/Attestation - Attestation I have personally seen and examined this patient.: Yes I have fully participated in the care of the patient.: Yes I have reviewed all pertinent clinical information: Yes Notes (Text): 10/03/18 17:43 Patient seen and examined in the intensive care unit. Case discussed with housestaff in the morning rounds. Patient refusing intubation and BiPAP though he agreed in the presence of sister and palliative nurse Continue antibiotics for cellulitis On high flow oxygen Continue nebulizer treatment and steroids Psych consult for possible withdrawal from substance abuse
--- NOTE | 2018-10-03 11:12 | RAD ---
Chest x-ray single frontal view HISTORY: Shortness of breath. Comparison: 10/01/2018 Findings: Moderate venous congestion. Right hilar prominence. Elevated right hemidiaphragm. Small to moderate left pleural effusion with adjacent left basilar consolidation. Right paratracheal prominence may represent prominent vasculature. Cardiomegaly. Degenerative changes in the spine and shoulders. Biapical pleural thickening with upper lobe granulomatous changes. Impression: Moderate venous congestion. Right hilar prominence. Elevated right hemidiaphragm. Small to moderate left pleural effusion with adjacent left basilar consolidation. Right paratracheal prominence may represent prominent vasculature. Cardiomegaly. Degenerative changes in the spine and shoulders. Biapical pleural thickening with upper lobe granulomatous changes.
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
--- NOTE | 2018-10-03 15:47 | CP.PCM.PN ---
Subjective - Date & Time of Evaluation Date of Evaluation: 10/03/18 Time of Evaluation: 09:00 - Subjective Subjective: awake alert c/o pain in left leg no fever still SOB Objective - Vital Signs/Intake and Output Vital Signs (last 24 hours): Temp Pulse Resp BP Pulse Ox 99.7 F H 129 H 31 H 141/81 99 10/03/18 11:55 10/03/18 14:27 10/03/18 14:27 10/03/18 14:27 10/03/18 14:27 Intake and Output: 10/03/18 10/03/18 06:59 18:59 Intake Total 1300 560 Output Total 1225 Balance 1300 -665 - Medications Medications: Current Medications Acetaminophen (Tylenol 650mg/20.3ml Solution Ud) 650 mg PO Q6 PRN PRN Reason: Temperature Last Admin: 10/02/18 18:26 Dose: 650 mg Albuterol/Ipratropium (Duoneb 3 Mg/0.5 Mg (3 Ml) Ud) 3 ml INH RQ6 [facility] Last Admin: 10/03/18 13:40 Dose: 3 ml Alprazolam (Xanax) 0.25 mg PO HS [facility] Stop: 10/08/18 22:01 Last Admin: 10/02/18 22:50 Dose: 0.25 mg Aspirin (Ecotrin) 81 mg PO DAILY [facility] Last Admin: 10/03/18 09:33 Dose: 81 mg Carvedilol (Coreg) 3.125 mg PO BID [facility] Last Admin: 10/03/18 09:33 Dose: 3.125 mg Dextrose (Dextrose 50% Inj) 0 ml IV STAT PRN; Protocol PRN Reason: Hypoglycemia Protocol Dextrose (Glutose 15) 0 gm PO ONCE PRN; Protocol PRN Reason: Hypoglycemia Protocol Enoxaparin Sodium (Lovenox) 40 mg SC DAILY [facility] Last Admin: 10/03/18 10:56 Dose: 40 mg Glucagon (Glucagen Diagnostic Kit) 0 mg IM STAT PRN; Protocol PRN Reason: Hypoglycemia Protocol Dextrose (Dextrose 5% In Water 1000 Ml) 1,000 mls @ 0 mls/hr IV .Q0M PRN; Protocol PRN Reason: Hypoglycemia Protocol Aztreonam 2 gm/ Sodium (Chloride) 100 mls @ 200 mls/hr IVPB Q8H [facility]; Protocol Last Admin: 10/03/18 14:34 Dose: 200 mls/hr Insulin Human Regular (Novolin R) 0 unit SC ACHS [facility]; Protocol Last Admin: 10/03/18 12:00 Dose: 3 u Losartan Potassium (Cozaar) 100 mg PO DAILY [facility] Last Admin: 10/03/18 09:33 Dose: 100 mg Methylprednisolone (Solu-Medrol) 40 mg IVP Q8H [facility] Last Admin: 10/03/18 07:25 Dose: 40 mg Oxycodone HCl (Oxycontin Extended Release Tab) 10 mg PO Q8H [facility] Stop: 10/04/18 19:01 Last Admin: 10/03/18 10:55 Dose: 10 mg Oxycodone/Acetaminophen (Percocet 5/325 Mg Tab) 1 tab PO Q6H PRN PRN Reason: Pain, severe (8-10) Stop: 10/04/18 16:10 Last Admin: 10/03/18 14:45 Dose: 1 tab Pantoprazole Sodium (Protonix Inj) 40 mg IVP DAILY [facility] Last Admin: 10/03/18 09:34 Dose: 40 mg Zolpidem Tartrate (Ambien) 5 mg PO HS PRN PRN Reason: Insomnia Last Admin: 10/02/18 01:46 Dose: 5 mg - Labs Labs: 10/03/18 06:09 10/03/18 06:00 PT 11.5 SECONDS (9.7-12.2) 10/01/18 12:26 INR 1.1 10/01/18 12:26 APTT 27 SECONDS (21-34) 10/01/18 12:26 - Constitutional Appears: Non-toxic, Chronically Ill - Head Exam Head Exam: NORMOCEPHALIC - Eye Exam Eye Exam: absent: Scleral icterus - ENT Exam ENT Exam: Mucous Membranes Dry - Neck Exam Neck Exam: absent: Lymphadenopathy - Respiratory Exam Respiratory Exam: Decreased Breath Sounds, Prolonged Expiratory Phase, Rales, Rhonchi - Cardiovascular Exam Cardiovascular Exam: REGULAR RHYTHM, +S1, +S2 - GI/Abdominal Exam GI & Abdominal Exam: Distended, Soft, Diminished Bowel Sounds. absent: Tenderness - Rectal Exam Rectal Exam: Deferred - Exam Exam: NORMAL INSPECTION - Extremities Exam Extremities Exam: Pedal Edema, Tenderness - Back Exam Back Exam: absent: CVA tenderness (L), CVA tenderness (R) - Neurological Exam Neurological Exam: Alert, Awake, CN II-XII Intact, Oriented x3 - Psychiatric Exam Psychiatric exam: Depressed - Skin Skin Exam: Dry, Erythema Assessment and Plan (1) Alcohol abuse Status: Acute (2) COPD (chronic obstructive pulmonary disease) Status: Acute (3) Cellulitis Status: Acute (4) Dependent edema Status: Acute (5) Emphysema of lung Status: Acute (6) HTN (hypertension) Status: Acute (7) Polysubstance (including opioids) dependence with physiol dependence Status: Acute (8) Avascular necrosis of left femoral head Status: Chronic (9) Avascular necrosis of right femoral head Status: Chronic (10) Degenerative joint disease of right hip Status: Chronic - Assessment and Plan (Free Text) Assessment: cont empiric IV antibiotics await final cultures
--- NOTE | 2018-10-03 18:21 | CP.PCM.PN ---
Subjective - Date & Time of Evaluation Date of Evaluation: 10/03/18 Time of Evaluation: 12:15 - Subjective Subjective: clinically same Objective - Vital Signs/Intake and Output Vital Signs (last 24 hours): Temp Pulse Resp BP Pulse Ox 99.5 F 112 H 30 H 131/76 95 10/03/18 16:00 10/03/18 18:00 10/03/18 18:00 10/03/18 17:27 10/03/18 18:00 Intake and Output: 10/03/18 10/03/18 06:59 18:59 Intake Total 1300 560 Output Total 1975 Balance 1300 -1415 - Medications Medications: Current Medications Acetaminophen (Tylenol 650mg/20.3ml Solution Ud) 650 mg PO Q6 PRN PRN Reason: Temperature Last Admin: 10/02/18 18:26 Dose: 650 mg Albuterol/Ipratropium (Duoneb 3 Mg/0.5 Mg (3 Ml) Ud) 3 ml INH RQ6 [facility] Last Admin: 10/03/18 13:40 Dose: 3 ml Alprazolam (Xanax) 0.25 mg PO HS [facility] Stop: 10/08/18 22:01 Last Admin: 10/02/18 22:50 Dose: 0.25 mg Aspirin (Ecotrin) 81 mg PO DAILY [facility] Last Admin: 10/03/18 09:33 Dose: 81 mg Carvedilol (Coreg) 3.125 mg PO BID [facility] Last Admin: 10/03/18 09:33 Dose: 3.125 mg Dextrose (Dextrose 50% Inj) 0 ml IV STAT PRN; Protocol PRN Reason: Hypoglycemia Protocol Dextrose (Glutose 15) 0 gm PO ONCE PRN; Protocol PRN Reason: Hypoglycemia Protocol Enoxaparin Sodium (Lovenox) 40 mg SC DAILY [facility] Last Admin: 10/03/18 10:56 Dose: 40 mg Glucagon (Glucagen Diagnostic Kit) 0 mg IM STAT PRN; Protocol PRN Reason: Hypoglycemia Protocol Dextrose (Dextrose 5% In Water 1000 Ml) 1,000 mls @ 0 mls/hr IV .Q0M PRN; Protocol PRN Reason: Hypoglycemia Protocol Aztreonam 2 gm/ Sodium (Chloride) 100 mls @ 200 mls/hr IVPB Q8H [facility]; Protocol Last Admin: 10/03/18 14:34 Dose: 200 mls/hr Insulin Human Regular (Novolin R) 0 unit SC ACHS [facility]; Protocol Last Admin: 10/03/18 16:17 Dose: Not Given Losartan Potassium (Cozaar) 100 mg PO DAILY [facility] Last Admin: 10/03/18 09:33 Dose: 100 mg Methylprednisolone (Solu-Medrol) 40 mg IVP Q8H [facility] Last Admin: 10/03/18 16:31 Dose: 40 mg Oxycodone HCl (Oxycontin Extended Release Tab) 10 mg PO Q8H [facility] Stop: 10/04/18 19:01 Last Admin: 10/03/18 10:55 Dose: 10 mg Oxycodone/Acetaminophen (Percocet 5/325 Mg Tab) 1 tab PO Q6H PRN PRN Reason: Pain, severe (8-10) Stop: 10/04/18 16:10 Last Admin: 10/03/18 14:45 Dose: 1 tab Pantoprazole Sodium (Protonix Inj) 40 mg IVP DAILY [facility] Last Admin: 10/03/18 09:34 Dose: 40 mg Zolpidem Tartrate (Ambien) 5 mg PO HS PRN PRN Reason: Insomnia Last Admin: 10/02/18 01:46 Dose: 5 mg - Labs Labs: 10/03/18 06:09 10/03/18 06:00 PT 11.5 SECONDS (9.7-12.2) 10/01/18 12:26 INR 1.1 10/01/18 12:26 APTT 27 SECONDS (21-34) 10/01/18 12:26 - Constitutional Appears: Well - Head Exam Head Exam: ATRAUMATIC, NORMAL INSPECTION, NORMOCEPHALIC - Eye Exam Eye Exam: EOMI, Normal appearance, PERRL Pupil Exam: NORMAL ACCOMODATION, PERRL - ENT Exam ENT Exam: Mucous Membranes Moist, Normal Exam - Neck Exam Neck Exam: Full ROM, Normal Inspection. absent: Lymphadenopathy - Respiratory Exam Respiratory Exam: Decreased Breath Sounds - Cardiovascular Exam Cardiovascular Exam: REGULAR RHYTHM, +S1, +S2 - GI/Abdominal Exam GI & Abdominal Exam: Soft, Diminished Bowel Sounds - Rectal Exam Rectal Exam: Deferred
[2018-10-04] MEDS: MethylPREDNISolone 40 mg Vial IVP SCH ×3 (00:24→21:00)
[2018-10-04] MEDS: Albuterol-Ipratrop 3 mg / 0.5 (3 ml) UD INH SCH ×3 (02:16→20:05)
[2018-10-04] MEDS: oxyCODONE 10 mg ER Tab (oxyCONTIN) PO SCH ×3 (03:22→18:47)
[2018-10-04 06:23] LABS: BASO % 0.1 % (0.0-2.0); HEMOGLOBIN 11.8 g/dL (12.0-18.0); LYMPH # 0.7 K/uL (1.0-4.3); LYMPH % 4.6 % (20.0-40.0); MEAN CELL VOLUME 91.4 fL (80.0-94.0); MEAN CORPUSCULAR HEMOGLOBIN 29.7 pg (27.0-31.0); MEAN CORPUSCULAR HGB CONC 32.6 g/dL (33.0-37.0); MEAN PLATELET VOLUME 7.8 fL (7.2-11.7); MONO # 0.6 K/uL (0.0-0.8); NEUT # 14.6 K/uL (1.8-7.0); NEUT % 91.3 % (50.0-75.0); NRBC % 0.1 % (0.0-2.0); PLATELET COUNT 231 K/uL (130-400); RBC 3.96 Mil/uL (4.40-5.90); RED CELL DISTRIBUTION WIDTH 14.2 % (11.5-14.5)
[2018-10-04 06:56] LABS: ALB/GLOB RATIO 1.3 (1.0-2.1); ALT/SGPT 47 U/L (21-72); AST/SGOT 48 U/L (17-59); BLOOD UREA NITROGEN 31 mg/dL (9-20); CALCIUM 9.1 mg/dl (8.6-10.4); GFR NON-AFRICAN AMERICAN > 60
[2018-10-04] MEDS: Aztreonam 2 GM in Sodium Chloride 0.9% 100 ML IVPB SCH ×3 (07:44→21:10)
[2018-10-04 07:56] LABS: LYMPHOCYTE 2 % (20-40); MONOCYTE 4 % (0-10); NEUTROPHIL 94 % (50-75); PLATELET ESTIMATE NORMAL (NORMAL); TOTAL CELLS COUNTED 100
[2018-10-04] MEDS: (Novolin R) Insulin Human Regular 100 units/ml vial SC SCH ×4 (07:58→22:00)
[2018-10-04] MEDS: Oxycodone/Acetaminophen 5/325 mg Tab PO PRN ×2 (09:25→15:38)
[2018-10-04] MEDS: Enoxaparin 40 mg Syringe SC SCH (09:26)
[2018-10-04 11:45] LABS: ARTERIAL BLOOD GAS HCO3 25.9 mmol/L (21-28); ARTERIAL BLOOD GAS HEMOGLOBIN 10.2 g/dL (11.7-17.4); ARTERIAL BLOOD GAS O2 SAT 97.8 % (95-98); ARTERIAL BLOOD GAS PCO2 40 mm/Hg (35-45); ARTERIAL BLOOD GAS PH 7.42 (7.35-7.45); ARTERIAL BLOOD GAS PO2 97 mm/Hg (80-100); ARTERIAL BLOOD GAS TCO2 27.1 mmol/L (22-28)
[2018-10-04] MEDS ORDERED: Metoprolol 1 mg/ml Inj IVP ONE (11:45)
[2018-10-04] MEDS ORDERED: Sodium Phosphate 15 MMOLE in Sodium Chloride 0.9% 250 ML IVPB ONE (12:15)
--- NOTE | 2018-10-04 13:00 | CP.PCM.PN ---
Subjective - Date & Time of Evaluation Date of Evaluation: 10/04/18 Time of Evaluation: 12:45 - Subjective Subjective: clinically same Objective - Vital Signs/Intake and Output Vital Signs (last 24 hours): Temp Pulse Resp BP Pulse Ox 99.2 F 106 H 35 H 144/74 96 10/04/18 08:00 10/04/18 12:05 10/04/18 12:05 10/04/18 12:05 10/04/18 12:00 Intake and Output: 10/04/18 10/04/18 06:59 18:59 Intake Total 800 450 Output Total 700 450 Balance 100 0 - Medications Medications: Current Medications Acetaminophen (Tylenol 650mg/20.3ml Solution Ud) 650 mg PO Q6 PRN PRN Reason: Temperature Last Admin: 10/02/18 18:26 Dose: 650 mg Albuterol/Ipratropium (Duoneb 3 Mg/0.5 Mg (3 Ml) Ud) 3 ml INH RQ6 [facility] Last Admin: 10/04/18 08:00 Dose: 3 ml Aspirin (Ecotrin) 81 mg PO DAILY [facility] Last Admin: 10/04/18 09:25 Dose: 81 mg Carvedilol (Coreg) 12.5 mg PO BID [facility] Dextrose (Dextrose 50% Inj) 0 ml IV STAT PRN; Protocol PRN Reason: Hypoglycemia Protocol Dextrose (Glutose 15) 0 gm PO ONCE PRN; Protocol PRN Reason: Hypoglycemia Protocol Enoxaparin Sodium (Lovenox) 40 mg SC DAILY [facility] Last Admin: 10/04/18 09:26 Dose: 40 mg Glucagon (Glucagen Diagnostic Kit) 0 mg IM STAT PRN; Protocol PRN Reason: Hypoglycemia Protocol Dextrose (Dextrose 5% In Water 1000 Ml) 1,000 mls @ 0 mls/hr IV .Q0M PRN; Protocol PRN Reason: Hypoglycemia Protocol Aztreonam 2 gm/ Sodium (Chloride) 100 mls @ 200 mls/hr IVPB Q8H [facility]; Protocol Last Admin: 10/04/18 07:44 Dose: 200 mls/hr Sodium Phosphate 15 mmole/ (Sodium Chloride) 255 mls @ 50 mls/hr IVPB .Q5H6M [facility] Stop: 10/04/18 17:20 Last Admin: 10/04/18 12:21 Dose: 50 mls/hr Insulin Human Regular (Novolin R) 0 unit SC ACHS [facility]; Protocol Last Admin: 10/04/18 12:17 Dose: 3 u Losartan Potassium (Cozaar) 100 mg PO DAILY [facility] Last Admin: 10/04/18 09:25 Dose: 100 mg Methylprednisolone (Solu-Medrol) 40 mg IVP Q12H [facility] Oxycodone HCl (Oxycontin Extended Release Tab) 10 mg PO Q8H [facility] Stop: 10/04/18 19:01 Last Admin: 10/04/18 11:40 Dose: 10 mg Oxycodone/Acetaminophen (Percocet 5/325 Mg Tab) 1 tab PO Q6H PRN PRN Reason: Pain, severe (8-10) Stop: 10/04/18 16:10 Last Admin: 10/04/18 09:25 Dose: 1 tab Pantoprazole Sodium (Protonix Inj) 40 mg IVP DAILY [facility] Last Admin: 10/04/18 09:25 Dose: 40 mg Zolpidem Tartrate (Ambien) 5 mg PO HS PRN PRN Reason: Insomnia Last Admin: 10/02/18 01:46 Dose: 5 mg - Labs Labs: 10/04/18 06:11 10/04/18 06:11 PT 11.5 SECONDS (9.7-12.2) 10/01/18 12:26 INR 1.1 10/01/18 12:26 APTT 27 SECONDS (21-34) 10/01/18 12:26
--- NOTE | 2018-10-04 13:51 | CP.CCUPN ---
<Romel Ge - Last Filed: 10/04/18 13:29> CCU Subjective - Physician Review Subjective (Free Text): PGY-1 ICU progress note for Dr Yulia Lopez service Patient is seen and examined at bedside.Patient sleeping in bed, responds to stimuli and awakens easily, patient seemed disoriented when awaken. Oriented after a few minutes. Admits to pain in bilateral hips and legs. refuses bipap machine, HR continues to fluctuate between 100 and 140s. Critical Care Time Spent (in minutes): 40 CCU Objective - Vital Signs / Intake & Output Vital Signs (Last 4 hours): Vital Signs Temp Pulse Resp BP Pulse Ox 10/04/18 13:00 113 H 37 H 94 L 10/04/18 12:05 106 H 35 H 144/74 10/04/18 12:00 99.5 F 129 H 30 H 96 10/04/18 11:04 114 H 28 H 143/72 96 10/04/18 11:00 139 H 33 H 96 10/04/18 10:05 140/62 10/04/18 10:00 153 H 36 H 96 Intake and Output (Last 8hrs): Intake & Output 10/03/18 10/04/18 10/04/18 22:59 06:59 14:59 Intake Total 300 500 500 Output Total 750 700 450 Balance -450 -200 50 Weight 208 lb Intake: Intake, IV Amount 100 100 50 Left Hand 100 100 50 Oral 200 400 450 Output: Urine 750 700 450 Urine, Voided 750 700 450 - Physical Exam Head: Positive for: Atraumatic, Normocephalic Pupils: Positive for: PERRL Extroacular Muscles: Positive for: EOMI Conjunctiva: Positive for: Normal Mouth: Positive for: Moist Mucous Membranes Neck: Positive for: Normal Range of Motion Respiratory/Chest: Positive for: Wheezes (left side ) Cardiovascular: Positive for: Normal S1, S2, Tachycardic Abdomen: Positive for: Distention, Normal Bowel Sounds Upper Extremity: Positive for: Normal Inspection Lower Extremity: Positive for: Edema, Other (left leg erythema, dressing in place) Neurological: Positive for: Speech Normal Skin: Positive for: Warm, Dry, Normal Color Psychiatric: Positive for: Alert - Medications Active Medications: Active Medications Generic Name Dose Route Start Last Admin Trade Name Freq PRN Reason Stop Dose Admin Acetaminophen 650 mg 10/01/18 21:40 10/02/18 18:26 Tylenol 650mg/20.3ml Solution Ud PO 650 mg Q6 PRN Administration Temperature Albuterol/Ipratropium 3 ml 10/01/18 20:00 10/04/18 08:00 Duoneb 3 Mg/0.5 Mg (3 Ml) Ud INH 3 ml RQ6 SANDRA Administration Aspirin 81 mg 10/02/18 16:30 10/04/18 09:25 Ecotrin PO 81 mg DAILY SANDRA Administration Carvedilol 12.5 mg 10/04/18 18:00 Coreg PO BID SANDRA Dextrose 0 ml 10/01/18 19:11 Dextrose 50% Inj IV STAT PRN Hypoglycemia Protocol Protocol Dextrose 0 gm 10/01/18 19:11 Glutose 15 PO ONCE PRN Hypoglycemia Protocol Protocol Enoxaparin Sodium 40 mg 10/03/18 10:00 10/04/18 09:26 Lovenox SC 40 mg DAILY SANDRA Administration Glucagon 0 mg 10/01/18 19:11 Glucagen Diagnostic Kit IM STAT PRN Hypoglycemia Protocol Protocol Dextrose 1,000 mls @ 0 mls/hr 10/01/18 19:11 Dextrose 5% In Water 1000 Ml IV .Q0M PRN Hypoglycemia Protocol Protocol Per Protocol Aztreonam 2 gm/ Sodium 100 mls @ 200 mls/hr 10/02/18 14:00 10/04/18 07:44 Chloride IVPB 200 mls/hr Q8H SANDRA Administration Protocol Sodium Phosphate 15 mmole/ 255 mls @ 50 mls/hr 10/04/18 12:15 10/04/18 12:21 Sodium Chloride IVPB 10/04/18 17:20 50 mls/hr .Q5H6M ONE Administration Insulin Human Regular 0 unit 10/01/18 22:00 10/04/18 12:17 Novolin R SC 3 u ACHS SANDRA Administration Protocol Losartan Potassium 100 mg 10/02/18 08:45 10/04/18 09:25 Cozaar PO 100 mg DAILY SANDRA Administration Methylprednisolone 40 mg 10/04/18 20:00 Solu-Medrol IVP Q12H SANDRA Oxycodone HCl 10 mg 10/01/18 19:00 10/04/18 11:40 Oxycontin Extended Release Tab PO 10/04/18 19:01 10 mg Q8H SANDRA Administration Oxycodone/Acetaminophen 1 tab 10/01/18 16:09 10/04/18 09:25 Percocet 5/325 Mg Tab PO 10/04/18 16:10 1 tab Q6H PRN Administration Pain, severe (8-10) Pantoprazole Sodium 40 mg 10/01/18 16:00 10/04/18 09:25 Protonix Inj IVP 40 mg DAILY SANDRA Administration Zolpidem Tartrate 5 mg 10/02/18 01:16 10/02/18 01:46 Ambien PO 5 mg HS PRN Administration Insomnia - Patient Studies Lab Studies: Microbiology Studies 10/01/18 12:24 Blood Culture - Preliminary Blood NO GROWTH AFTER 3 DAYS 10/01/18 12:21 Blood Culture - Preliminary Blood NO GROWTH AFTER 3 DAYS 10/02/18 14:49 Gram Stain - Final Leg - Left Wound Culture - Final Enterobacter Cloacae Ssp Cloac Lab Studies 10/04/18 10/04/18 10/04/18 Range/Units 11:41 11:29 07:20 WBC (4.8-10.8) K/uL RBC (4.40-5.90) Mil/uL Hgb (12.0-18.0) g/dL Hct (35.0-51.0) % MCV (80.0-94.0) fL MCH (27.0-31.0) pg MCHC (33.0-37.0) g/dL RDW (11.5-14.5) % Plt Count (130-400) K/uL MPV (7.2-11.7) fL Neut % (Auto) (50.0-75.0) % Lymph % (Auto) (20.0-40.0) % [place] % (Auto) (0.0-10.0) % Eos % (Auto) (0.0-4.0) % Baso % (Auto) (0.0-2.0) % Neut # (Auto) (1.8-7.0) K/uL Lymph # (Auto) (1.0-4.3) K/uL [place] # (Auto) (0.0-0.8) K/uL Eos # (Auto) (0.0-0.7) K/uL Baso # (Auto) (0.0-0.2) K/uL Neutrophils % (Manual) (50-75) % Lymphocytes % (Manual) (20-40) % Monocytes % (Manual) (0-10) % Platelet Estimate (NORMAL) RBC Morphology Puncture Site L/b pCO2 40 (35-45) mm/Hg pO2 97 (80-100) mm/Hg HCO3 25.9 (21-28) mmol/L ABG pH 7.42 (7.35-7.45) ABG Total CO2 27.1 (22-28) mmol/L ABG O2 Saturation 97.8 (95-98) % ABG Base Excess 1.3 (-2.0-3.0) mmol/L ABG Hemoglobin 10.2 L (11.7-17.4) g/dL ABG Carboxyhemoglobin 1.2 (0.5-1.5) % POC ABG HHb (Measured) 2.2 (0.0-5.0) % ABG Methemoglobin 0.7 (0.0-3.0) % Von Test Na A-a O2 Difference 210.0 mm/Hg Respiratory Index 2.2 Hgb O2 Saturation 95.9 (95.0-98.0) % FiO2 50.0 % Sodium (132-148) mmol/L Potassium (3.6-5.2) mmol/L Chloride (98-107) mmol/L Carbon Dioxide (22-30) mmol/L Anion Gap (10-20) BUN (9-20) mg/dL Creatinine (0.8-1.5) mg/dL Est GFR ( Amer) Est GFR (Non-Af Amer) POC Glucose (mg/dL) 239 H 185 H (65-110) mg/dL Random Glucose (75-110) mg/dL Calcium (8.6-10.4) mg/dl Phosphorus (2.5-4.5) mg/dL Magnesium (1.6-2.3) mg/dL Total Bilirubin (0.2-1.3) mg/dL AST (17-59) U/L ALT (21-72) U/L Alkaline Phosphatase (38-126) U/L Total Protein (6.3-8.3) g/dL Albumin (3.5-5.0) g/dL Globulin (2.2-3.9) gm/dL Albumin/Globulin Ratio (1.0-2.1) 10/04/18 10/04/18 10/03/18 Range/Units 06:11 06:11 21:22 WBC 16.0 H (4.8-10.8) K/uL RBC 3.96 L (4.40-5.90) Mil/uL Hgb 11.8 L (12.0-18.0) g/dL Hct 36.2 (35.0-51.0) % MCV 91.4 (80.0-94.0) fL MCH 29.7 (27.0-31.0) pg MCHC 32.6 L (33.0-37.0) g/dL RDW 14.2 (11.5-14.5) % Plt Count 231 (130-400) K/uL MPV 7.8 (7.2-11.7) fL Neut % (Auto) 91.3 H (50.0-75.0) % Lymph % (Auto) 4.6 L (20.0-40.0) % [place] % (Auto) 4.0 (0.0-10.0) % Eos % (Auto) 0.0 (0.0-4.0) % Baso % (Auto) 0.1 (0.0-2.0) % Neut # (Auto) 14.6 H (1.8-7.0) K/uL Lymph # (Auto) 0.7 L (1.0-4.3) K/uL [place] # (Auto) 0.6 (0.0-0.8) K/uL Eos # (Auto) 0.0 (0.0-0.7) K/uL Baso # (Auto) 0.0 (0.0-0.2) K/uL Neutrophils % (Manual) 94 H (50-75) % Lymphocytes % (Manual) 2 L (20-40) % Monocytes % (Manual) 4 (0-10) % Platelet Estimate Normal (NORMAL) RBC Morphology Normal Puncture Site pCO2 (35-45) mm/Hg pO2 (80-100) mm/Hg HCO3 (21-28) mmol/L ABG pH (7.35-7.45) ABG Total CO2 (22-28) mmol/L ABG O2 Saturation (95-98) % ABG Base Excess (-2.0-3.0) mmol/L ABG Hemoglobin (11.7-17.4) g/dL ABG Carboxyhemoglobin (0.5-1.5) % POC ABG HHb (Measured) (0.0-5.0) % ABG Methemoglobin (0.0-3.0) % Von Test A-a O2 Difference mm/Hg Respiratory Index Hgb O2 Saturation (95.0-98.0) % FiO2 % Sodium 139 (132-148) mmol/L Potassium 3.9 (3.6-5.2) mmol/L Chloride 102 (98-107) mmol/L Carbon Dioxide 31 H (22-30) mmol/L Anion Gap 11 (10-20) BUN 31 H (9-20) mg/dL Creatinine 0.7 L (0.8-1.5) mg/dL Est GFR ( Amer) > 60 Est GFR (Non-Af Amer) > 60 POC Glucose (mg/dL) 193 H (65-110) mg/dL Random Glucose 172 H D (75-110) mg/dL Calcium 9.1 (8.6-10.4) mg/dl Phosphorus 1.8 L (2.5-4.5) mg/dL Magnesium 2.5 H (1.6-2.3) mg/dL Total Bilirubin 0.7 (0.2-1.3) mg/dL AST 48 (17-59) U/L ALT 47 (21-72) U/L Alkaline Phosphatase 89 (38-126) U/L Total Protein 7.0 (6.3-8.3) g/dL Albumin 4.0 (3.5-5.0) g/dL Globulin 3.1 (2.2-3.9) gm/dL Albumin/Globulin Ratio 1.3 (1.0-2.1) 10/03/18 Range/Units 16:10 WBC (4.8-10.8) K/uL RBC (4.40-5.90) Mil/uL Hgb (12.0-18.0) g/dL Hct (35.0-51.0) % MCV (80.0-94.0) fL MCH (27.0-31.0) pg MCHC (33.0-37.0) g/dL RDW (11.5-14.5) % Plt Count (130-400) K/uL MPV (7.2-11.7) fL Neut % (Auto) (50.0-75.0) % Lymph % (Auto) (20.0-40.0) % [place] % (Auto) (0.0-10.0) % Eos % (Auto) (0.0-4.0) % Baso % (Auto) (0.0-2.0) % Neut # (Auto) (1.8-7.0) K/uL Lymph # (Auto) (1.0-4.3) K/uL [place] # (Auto) (0.0-0.8) K/uL Eos # (Auto) (0.0-0.7) K/uL Baso # (Auto) (0.0-0.2) K/uL Neutrophils % (Manual) (50-75) % Lymphocytes % (Manual) (20-40) % Monocytes % (Manual) (0-10) % Platelet Estimate (NORMAL) RBC Morphology Puncture Site pCO2 (35-45) mm/Hg pO2 (80-100) mm/Hg HCO3 (21-28) mmol/L ABG pH (7.35-7.45) ABG Total CO2 (22-28) mmol/L ABG O2 Saturation (95-98) % ABG Base Excess (-2.0-3.0) mmol/L ABG Hemoglobin (11.7-17.4) g/dL ABG Carboxyhemoglobin (0.5-1.5) % POC ABG HHb (Measured) (0.0-5.0) % ABG Methemoglobin (0.0-3.0) % Von Test A-a O2 Difference mm/Hg Respiratory Index Hgb O2 Saturation (95.0-98.0) % FiO2 % Sodium (132-148) mmol/L Potassium (3.6-5.2) mmol/L Chloride (98-107) mmol/L Carbon Dioxide (22-30) mmol/L Anion Gap (10-20) BUN (9-20) mg/dL Creatinine (0.8-1.5) mg/dL Est GFR ( Amer) Est GFR (Non-Af Amer) POC Glucose (mg/dL) 146 H (65-110) mg/dL Random Glucose (75-110) mg/dL Calcium (8.6-10.4) mg/dl Phosphorus (2.5-4.5) mg/dL Magnesium (1.6-2.3) mg/dL Total Bilirubin (0.2-1.3) mg/dL AST (17-59) U/L ALT (21-72) U/L Alkaline Phosphatase (38-126) U/L Total Protein (6.3-8.3) g/dL Albumin (3.5-5.0) g/dL Globulin (2.2-3.9) gm/dL Albumin/Globulin Ratio (1.0-2.1) Laboratory Results - last 24 hr 10/03/18 10/03/18 10/04/18 16:10 21:22 06:11 WBC 16.0 H RBC 3.96 L Hgb 11.8 L Hct 36.2 MCV 91.4 MCH 29.7 MCHC 32.6 L RDW 14.2 Plt Count 231 MPV 7.8 Neut % (Auto) 91.3 H Lymph % (Auto) 4.[address] [place] % (Auto) 4.0 Eos % (Auto) 0.0 Baso % (Auto) 0.1 Neut # (Auto) 14.6 H Lymph # (Auto) 0.[address] [place] # (Auto) 0.6 Eos # (Auto) 0.0 Baso # (Auto) 0.0 Neutrophils % (Manual) 94 H Lymphocytes % (Manual) 2 L Monocytes % (Manual) 4 Platelet Estimate Normal RBC Morphology Normal Puncture Site pCO2 pO2 HCO3 ABG pH ABG Total CO2 ABG O2 Saturation ABG Base Excess ABG Hemoglobin ABG Carboxyhemoglobin POC ABG HHb (Measured) ABG Methemoglobin Von Test A-a O2 Difference Respiratory Index Hgb O2 Saturation FiO2 Sodium Potassium Chloride Carbon Dioxide Anion Gap BUN Creatinine Est GFR ( Amer) Est GFR (Non-Af Amer) POC Glucose (mg/dL) 146 H 193 H Random Glucose Calcium Phosphorus Magnesium Total Bilirubin AST ALT Alkaline Phosphatase Total Protein Albumin Globulin Albumin/Globulin Ratio 10/04/18 10/04/18 10/04/18 06:11 07:20 11:29 WBC RBC Hgb Hct MCV MCH MCHC RDW Plt Count MPV Neut % (Auto) Lymph % (Auto) [place] % (Auto) Eos % (Auto) Baso % (Auto) Neut # (Auto) Lymph # (Auto) [place] # (Auto) Eos # (Auto) Baso # (Auto) Neutrophils % (Manual) Lymphocytes % (Manual) Monocytes % (Manual) Platelet Estimate RBC Morphology Puncture Site pCO2 pO2 HCO3 ABG pH ABG Total CO2 ABG O2 Saturation ABG Base Excess ABG Hemoglobin ABG Carboxyhemoglobin POC ABG HHb (Measured) ABG Methemoglobin Von Test A-a O2 Difference Respiratory Index Hgb O2 Saturation FiO2 Sodium 139 Potassium 3.9 Chloride 102 Carbon Dioxide 31 H Anion Gap 11 BUN 31 H Creatinine 0.7 L Est GFR ( Amer) > 60 Est GFR (Non-Af Amer) > 60 POC Glucose (mg/dL) 185 H 239 H Random Glucose 172 H D Calcium 9.1 Phosphorus 1.8 L Magnesium 2.5 H Total Bilirubin 0.7 AST 48 ALT 47 Alkaline Phosphatase 89 Total Protein 7.0 Albumin 4.0 Globulin 3.1 Albumin/Globulin Ratio 1.3 10/04/18 11:41 WBC RBC Hgb Hct MCV MCH MCHC RDW Plt Count MPV Neut % (Auto) Lymph % (Auto) [place] % (Auto) Eos % (Auto) Baso % (Auto) Neut # (Auto) Lymph # (Auto) [place] # (Auto) Eos # (Auto) Baso # (Auto) Neutrophils % (Manual) Lymphocytes % (Manual) Monocytes % (Manual) Platelet Estimate RBC Morphology Puncture Site L/b pCO2 40 pO2 97 HCO3 25.9 ABG pH 7.42 ABG Total CO2 27.1 ABG O2 Saturation 97.8 ABG Base Excess 1.3 ABG Hemoglobin 10.2 L ABG Carboxyhemoglobin 1.2 POC ABG HHb (Measured) 2.2 ABG Methemoglobin 0.7 Von Test Na A-a O2 Difference 210.0 Respiratory Index 2.2 Hgb O2 Saturation 95.9 FiO2 50.0 Sodium Potassium Chloride Carbon Dioxide Anion Gap BUN Creatinine Est GFR ( Amer) Est GFR (Non-Af Amer) POC Glucose (mg/dL) Random Glucose Calcium Phosphorus Magnesium Total Bilirubin AST ALT Alkaline Phosphatase Total Protein Albumin Globulin Albumin/Globulin Ratio EKG/Cardiology Studies: Cardiology / EKG Studies 10/04/18 10:52 EKG [ELECTROCARDIOGRAM] Stat Comment: Mode Of Transportation: Reason For Exam: r/o afib Fingerstick Blood Sugar Results: 239 Critical Care Progress Note - Prophylaxis GI Prophylaxis GI: PPI - Prophylaxis DVT Prophylaxis DVT: Lovenox - Nutrition Nutrition: Nutrition Category Date Time Status Consistent Carbohydrate [DIET] Diets 10/02/18 Lunch Active Assessment/Plan - Assessment and Plan (Free Text) Plan: Patient is a 58 year old male with pmhx of COPD, Bladder CA, CHF, DM, HTN, peripheral edema, TONIO, alcohol/substance abuse, chronic b/l hip pain was brought to the ED for shortness of breath, in ED with respiratory distress, refused bipap and intubation in ED, on high flow O2 at this time, with left leg cellulitis, elevated lactate and wbc on ED labs. Improved temperature, on cooling blanket, continue Left LE wound cx positive for enterobacter cloacae, on aztreonam abx, CTA and LE doppler negative for DVT and PE, tachycardic, added lopresor IV x1, most likely benefit from higher dose B rashawn and Bipap, will follow up wound care nurse and palliative care as patient does not want to be intubated if it requires. Neuro AAOx3 afebrile this morning Polusubstance abuse - consult Psych - Dr Cortés - follow up recs D/C xanax, continue ambien Cardio possible afib on monitor EKG stat - questionable afib hx of CHF echo -normal left ventricular systolic function and wall motion. CTA - no PE b/l LE doppler - negative D- Dimer - 604 Tachycardic - gave one dose of lopressor 5mg - HR improving Increased Coreg to 12.5 mg PO BID continue losartan for HTN cardio consult - Dr crews -f/u Pulm COPD exarcerbation refuses Bipap on high flow now ABG today wnl cxray from 10/03 - Mod venous congestion, small to mod left pleural effusion with left basilar consoilidation Solumedrol 40 mg IVP Q12H duonebs Q6H lasix 40mg IVP x ONCE Pulm consult - Dr Shah GI consistent carb diet protonix Endo hx of DM ISS medium protocol accuchecks ACHS hypoglycemia protocol ID SIRS criteria, possible cellulitis left leg WBC 16 today allergy to cephalexin, cefuroxime blood, urine cx no growth x 72 hours , no MRSA detected gram negative shon - Enterobacter cloacae Aztreonam 2mg Q8H Wound care for left LE - follow up recs ID - Dr Vázquez Nephnishant BUN/Cr unchanged Phosphate low today - replace with sodium phosp continue to monitor labs - replete PRN PPX GI: protonix DVT: Lovenox 40SC Q daily, SCDs c/i due to leg cellulitis Percocet and Oxycodone for chronic pain, tylenol PRN Palliatiave care consult - For DNI eval Plan discussed with Dr Jessica Ge, PGY-1 - Date & Time Date: 10/04/18 Time: 09:00 <Justin Lopez - Last Filed: 10/04/18 16:40> CCU Objective - Vital Signs / Intake & Output Vital Signs (Last 4 hours): Vital Signs Temp Pulse Resp BP Pulse Ox 10/04/18 16:22 106 H 22 142/67 95 10/04/18 16:13 25 H 10/04/18 16:00 97.4 F L 111 H 28 H 97 10/04/18 15:35 110 H 16 146/71 89 L 10/04/18 14:12 116 H 29 H 114/95 H 90 L 10/04/18 14:00 114 H 30 H 98 10/04/18 13:43 37 H 10/04/18 13:13 109 H 31 H 146/74 92 L 10/04/18 13:00 113 H 37 H 94 L Intake and Output (Last 8hrs): Intake & Output 10/04/18 10/04/18 10/04/18 06:59 14:59 22:59 Intake Total 500 750 150 Output Total 700 450 200 Balance -200 300 -50 Weight 208 lb Intake: Intake, IV Amount 100 100 50 Left Hand 100 100 50 Oral 400 650 100 Output: Urine 700 450 200 Urine, Voided 700 450 200 - Medications Active Medications: Active Medications Generic Name Dose Route Start Last Admin Trade Name Freq PRN Reason Stop Dose Admin Acetaminophen 650 mg 10/01/18 21:40 10/02/18 18:26 Tylenol 650mg/20.3ml Solution Ud PO 650 mg Q6 PRN Administration Temperature Albuterol/Ipratropium 3 ml 10/01/18 20:00 10/04/18 08:00 Duoneb 3 Mg/0.5 Mg (3 Ml) Ud INH 3 ml RQ6 SANDRA Administration Apixaban 5 mg 10/04/18 18:00 Eliquis PO BID SANDRA Aspirin 81 mg 10/02/18 16:30 10/04/18 09:25 Ecotrin PO 81 mg DAILY SANDRA Administration Carvedilol 12.5 mg 10/04/18 18:00 Coreg PO BID SANDRA Dextrose 0 ml 10/01/18 19:11 Dextrose 50% Inj IV STAT PRN Hypoglycemia Protocol Protocol Dextrose 0 gm 10/01/18 19:11 Glutose 15 PO ONCE PRN Hypoglycemia Protocol Protocol Enoxaparin Sodium 40 mg 10/03/18 10:00 10/04/18 09:26 Lovenox SC 40 mg DAILY SANDRA Administration Glucagon 0 mg 10/01/18 19:11 Glucagen Diagnostic Kit IM STAT PRN Hypoglycemia Protocol Protocol Dextrose 1,000 mls @ 0 mls/hr 10/01/18 19:11 Dextrose 5% In Water 1000 Ml IV .Q0M PRN Hypoglycemia Protocol Protocol Per Protocol Aztreonam 2 gm/ Sodium 100 mls @ 200 mls/hr 10/02/18 14:00 10/04/18 14:10 Chloride IVPB 200 mls/hr Q8H SANDRA Administration Protocol Sodium Phosphate 15 mmole/ 255 mls @ 50 mls/hr 10/04/18 12:15 10/04/18 12:21 Sodium Chloride IVPB 10/04/18 17:20 50 mls/hr .Q5H6M ONE Administration Insulin Human Regular 0 unit 10/01/18 22:00 10/04/18 16:35 Novolin R SC 2 u ACHS SANDRA Administration Protocol Lorazepam 1 mg 10/04/18 14:41 Ativan PO Q6 PRN Symptoms of alcohol withdrawl Losartan Potassium 100 mg 10/02/18 08:45 10/04/18 09:25 Cozaar PO 100 mg DAILY SANDRA Administration Methylprednisolone 40 mg 10/04/18 20:00 Solu-Medrol IVP Q12H SANDRA Oxycodone HCl 10 mg 10/01/18 19:00 10/04/18 11:40 Oxycontin Extended Release Tab PO 10/04/18 19:01 10 mg Q8H SANDRA Administration Oxycodone/Acetaminophen 1 tab 10/04/18 16:29 Percocet 5/325 Mg Tab PO 10/07/18 16:30 Q6H PRN Pain, moderate (4-7) Pantoprazole Sodium 40 mg 10/01/18 16:00 10/04/18 09:25 Protonix Inj IVP 40 mg DAILY SANDRA Administration Zolpidem Tartrate 5 mg 10/02/18 01:16 10/02/18 01:46 Ambien PO 5 mg HS PRN Administration Insomnia - Patient Studies Lab Studies: Microbiology Studies 10/01/18 12:24 Blood Culture - Preliminary Blood NO GROWTH AFTER 3 DAYS 10/01/18 12:21 Blood Culture - Preliminary Blood NO GROWTH AFTER 3 DAYS 10/02/18 14:49 Gram Stain - Final Leg - Left Wound Culture - Final Enterobacter Cloacae Ssp Cloac Lab Studies 10/04/18 10/04/18 10/04/18 Range/Units 15:58 11:41 11:29 WBC (4.8-10.8) K/uL RBC (4.40-5.90) Mil/uL Hgb (12.0-18.0) g/dL Hct (35.0-51.0) % MCV (80.0-94.0) fL MCH (27.0-31.0) pg MCHC (33.0-37.0) g/dL RDW (11.5-14.5) % Plt Count (130-400) K/uL MPV (7.2-11.7) fL Neut % (Auto) (50.0-75.0) % Lymph % (Auto) (20.0-40.0) % [place] % (Auto) (0.0-10.0) % Eos % (Auto) (0.0-4.0) % Baso % (Auto) (0.0-2.0) % Neut # (Auto) (1.8-7.0) K/uL Lymph # (Auto) (1.0-4.3) K/uL [place] # (Auto) (0.0-0.8) K/uL Eos # (Auto) (0.0-0.7) K/uL Baso # (Auto) (0.0-0.2) K/uL Neutrophils % (Manual) (50-75) % Lymphocytes % (Manual) (20-40) % Monocytes % (Manual) (0-10) % Platelet Estimate (NORMAL) RBC Morphology Puncture Site L/b pCO2 40 (35-45) mm/Hg pO2 97 (80-100) mm/Hg HCO3 25.9 (21-28) mmol/L ABG pH 7.42 (7.35-7.45) ABG Total CO2 27.1 (22-28) mmol/L ABG O2 Saturation 97.8 (95-98) % ABG Base Excess 1.3 (-2.0-3.0) mmol/L ABG Hemoglobin 10.2 L (11.7-17.4) g/dL ABG Carboxyhemoglobin 1.2 (0.5-1.5) % POC ABG HHb (Measured) 2.2 (0.0-5.0) % ABG Methemoglobin 0.7 (0.0-3.0) % Von Test Na A-a O2 Difference 210.0 mm/Hg Respiratory Index 2.2 Hgb O2 Saturation 95.9 (95.0-98.0) % FiO2 50.0 % Sodium (132-148) mmol/L Potassium (3.6-5.2) mmol/L Chloride (98-107) mmol/L Carbon Dioxide (22-30) mmol/L Anion Gap (10-20) BUN (9-20) mg/dL Creatinine (0.8-1.5) mg/dL Est GFR ( Amer) Est GFR (Non-Af Amer) POC Glucose (mg/dL) 183 H 239 H (65-110) mg/dL Random Glucose (75-110) mg/dL Calcium (8.6-10.4) mg/dl Phosphorus (2.5-4.5) mg/dL Magnesium (1.6-2.3) mg/dL Total Bilirubin (0.2-1.3) mg/dL AST (17-59) U/L ALT (21-72) U/L Alkaline Phosphatase (38-126) U/L Total Protein (6.3-8.3) g/dL Albumin (3.5-5.0) g/dL Globulin (2.2-3.9) gm/dL Albumin/Globulin Ratio (1.0-2.1) 10/04/18 10/04/18 10/04/18 Range/Units 07:20 06:11 06:11 WBC 16.0 H (4.8-10.8) K/uL RBC 3.96 L (4.40-5.90) Mil/uL Hgb 11.8 L (12.0-18.0) g/dL Hct 36.2 (35.0-51.0) % MCV 91.4 (80.0-94.0) fL MCH 29.7 (27.0-31.0) pg MCHC 32.6 L (33.0-37.0) g/dL RDW 14.2 (11.5-14.5) % Plt Count 231 (130-400) K/uL MPV 7.8 (7.2-11.7) fL Neut % (Auto) 91.3 H (50.0-75.0) % Lymph % (Auto) 4.6 L (20.0-40.0) % [place] % (Auto) 4.0 (0.0-10.0) % Eos % (Auto) 0.0 (0.0-4.0) % Baso % (Auto) 0.1 (0.0-2.0) % Neut # (Auto) 14.6 H (1.8-7.0) K/uL Lymph # (Auto) 0.7 L (1.0-4.3) K/uL [place] # (Auto) 0.6 (0.0-0.8) K/uL Eos # (Auto) 0.0 (0.0-0.7) K/uL Baso # (Auto) 0.0 (0.0-0.2) K/uL Neutrophils % (Manual) 94 H (50-75) % Lymphocytes % (Manual) 2 L (20-40) % Monocytes % (Manual) 4 (0-10) % Platelet Estimate Normal (NORMAL) RBC Morphology Normal Puncture Site pCO2 (35-45) mm/Hg pO2 (80-100) mm/Hg HCO3 (21-28) mmol/L ABG pH (7.35-7.45) ABG Total CO2 (22-28) mmol/L ABG O2 Saturation (95-98) % ABG Base Excess (-2.0-3.0) mmol/L ABG Hemoglobin (11.7-17.4) g/dL ABG Carboxyhemoglobin (0.5-1.5) % POC ABG HHb (Measured) (0.0-5.0) % ABG Methemoglobin (0.0-3.0) % Von Test A-a O2 Difference mm/Hg Respiratory Index Hgb O2 Saturation (95.0-98.0) % FiO2 % Sodium 139 (132-148) mmol/L Potassium 3.9 (3.6-5.2) mmol/L Chloride 102 (98-107) mmol/L Carbon Dioxide 31 H (22-30) mmol/L Anion Gap 11 (10-20) BUN 31 H (9-20) mg/dL Creatinine 0.7 L (0.8-1.5) mg/dL Est GFR ( Amer) > 60 Est GFR (Non-Af Amer) > 60 POC Glucose (mg/dL) 185 H (65-110) mg/dL Random Glucose 172 H D (75-110) mg/dL Calcium 9.1 (8.6-10.4) mg/dl Phosphorus 1.8 L (2.5-4.5) mg/dL Magnesium 2.5 H (1.6-2.3) mg/dL Total Bilirubin 0.7 (0.2-1.3) mg/dL AST 48 (17-59) U/L ALT 47 (21-72) U/L Alkaline Phosphatase 89 (38-126) U/L Total Protein 7.0 (6.3-8.3) g/dL Albumin 4.0 (3.5-5.0) g/dL Globulin 3.1 (2.2-3.9) gm/dL Albumin/Globulin Ratio 1.3 (1.0-2.1) 10/03/18 Range/Units 21:22 WBC (4.8-10.8) K/uL RBC (4.40-5.90) Mil/uL Hgb (12.0-18.0) g/dL Hct (35.0-51.0) % MCV (80.0-94.0) fL MCH (27.0-31.0) pg MCHC (33.0-37.0) g/dL RDW (11.5-14.5) % Plt Count (130-400) K/uL MPV (7.2-11.7) fL Neut % (Auto) (50.0-75.0) % Lymph % (Auto) (20.0-40.0) % [place] % (Auto) (0.0-10.0) % Eos % (Auto) (0.0-4.0) % Baso % (Auto) (0.0-2.0) % Neut # (Auto) (1.8-7.0) K/uL Lymph # (Auto) (1.0-4.3) K/uL [place] # (Auto) (0.0-0.8) K/uL Eos # (Auto) (0.0-0.7) K/uL Baso # (Auto) (0.0-0.2) K/uL Neutrophils % (Manual) (50-75) % Lymphocytes % (Manual) (20-40) % Monocytes % (Manual) (0-10) % Platelet Estimate (NORMAL) RBC Morphology Puncture Site pCO2 (35-45) mm/Hg pO2 (80-100) mm/Hg HCO3 (21-28) mmol/L ABG pH (7.35-7.45) ABG Total CO2 (22-28) mmol/L ABG O2 Saturation (95-98) % ABG Base Excess (-2.0-3.0) mmol/L ABG Hemoglobin (11.7-17.4) g/dL ABG Carboxyhemoglobin (0.5-1.5) % POC ABG HHb (Measured) (0.0-5.0) % ABG Methemoglobin (0.0-3.0) % Von Test A-a O2 Difference mm/Hg Respiratory Index Hgb O2 Saturation (95.0-98.0) % FiO2 % Sodium (132-148) mmol/L Potassium (3.6-5.2) mmol/L Chloride (98-107) mmol/L Carbon Dioxide (22-30) mmol/L Anion Gap (10-20) BUN (9-20) mg/dL Creatinine (0.8-1.5) mg/dL Est GFR ( Amer) Est GFR (Non-Af Amer) POC Glucose (mg/dL) 193 H (65-110) mg/dL Random Glucose (75-110) mg/dL Calcium (8.6-10.4) mg/dl Phosphorus (2.5-4.5) mg/dL Magnesium (1.6-2.3) mg/dL Total Bilirubin (0.2-1.3) mg/dL AST (17-59) U/L ALT (21-72) U/L Alkaline Phosphatase (38-126) U/L Total Protein (6.3-8.3) g/dL Albumin (3.5-5.0) g/dL Globulin (2.2-3.9) gm/dL Albumin/Globulin Ratio (1.0-2.1) Laboratory Results - last 24 hr 10/03/18 10/04/18 10/04/18 21:22 06:11 06:11 WBC 16.0 H RBC 3.96 L Hgb 11.8 L Hct 36.2 MCV 91.4 MCH 29.7 MCHC 32.6 L RDW 14.2 Plt Count 231 MPV 7.8 Neut % (Auto) 91.3 H Lymph % (Auto) 4.[address] [place] % (Auto) 4.0 Eos % (Auto) 0.0 Baso % (Auto) 0.1 Neut # (Auto) 14.6 H Lymph # (Auto) 0.[address] [place] # (Auto) 0.6 Eos # (Auto) 0.0 Baso # (Auto) 0.0 Neutrophils % (Manual) 94 H Lymphocytes % (Manual) 2 L Monocytes % (Manual) 4 Platelet Estimate Normal RBC Morphology Normal Puncture Site pCO2 pO2 HCO3 ABG pH ABG Total CO2 ABG O2 Saturation ABG Base Excess ABG Hemoglobin ABG Carboxyhemoglobin POC ABG HHb (Measured) ABG Methemoglobin Von Test A-a O2 Difference Respiratory Index Hgb O2 Saturation FiO2 Sodium 139 Potassium 3.9 Chloride 102 Carbon Dioxide 31 H Anion Gap 11 BUN 31 H Creatinine 0.7 L Est GFR ( Amer) > 60 Est GFR (Non-Af Amer) > 60 POC Glucose (mg/dL) 193 H Random Glucose 172 H D Calcium 9.1 Phosphorus 1.8 L Magnesium 2.5 H Total Bilirubin 0.7 AST 48 ALT 47 Alkaline Phosphatase 89 Total Protein 7.0 Albumin 4.0 Globulin 3.1 Albumin/Globulin Ratio 1.3 10/04/18 10/04/18 10/04/18 07:20 11:29 11:41 WBC RBC Hgb Hct MCV MCH MCHC RDW Plt Count MPV Neut % (Auto) Lymph % (Auto) [place] % (Auto) Eos % (Auto) Baso % (Auto) Neut # (Auto) Lymph # (Auto) [place] # (Auto) Eos # (Auto) Baso # (Auto) Neutrophils % (Manual) Lymphocytes % (Manual) Monocytes % (Manual) Platelet Estimate RBC Morphology Puncture Site L/b pCO2 40 pO2 97 HCO3 25.9 ABG pH 7.42 ABG Total CO2 27.1 ABG O2 Saturation 97.8 ABG Base Excess 1.3 ABG Hemoglobin 10.2 L ABG Carboxyhemoglobin 1.2 POC ABG HHb (Measured) 2.2 ABG Methemoglobin 0.7 Von Test Na A-a O2 Difference 210.0 Respiratory Index 2.2 Hgb O2 Saturation 95.9 FiO2 50.0 Sodium Potassium Chloride Carbon Dioxide Anion Gap BUN Creatinine Est GFR ( Amer) Est GFR (Non-Af Amer) POC Glucose (mg/dL) 185 H 239 H Random Glucose Calcium Phosphorus Magnesium Total Bilirubin AST ALT Alkaline Phosphatase Total Protein Albumin Globulin Albumin/Globulin Ratio 10/04/18 15:58 WBC RBC Hgb Hct MCV MCH MCHC RDW Plt Count MPV Neut % (Auto) Lymph % (Auto) [place] % (Auto) Eos % (Auto) Baso % (Auto) Neut # (Auto) Lymph # (Auto) [place] # (Auto) Eos # (Auto) Baso # (Auto) Neutrophils % (Manual) Lymphocytes % (Manual) Monocytes % (Manual) Platelet Estimate RBC Morphology Puncture Site pCO2 pO2 HCO3 ABG pH ABG Total CO2 ABG O2 Saturation ABG Base Excess ABG Hemoglobin ABG Carboxyhemoglobin POC ABG HHb (Measured) ABG Methemoglobin Von Test A-a O2 Difference Respiratory Index Hgb O2 Saturation FiO2 Sodium Potassium Chloride Carbon Dioxide Anion Gap BUN Creatinine Est GFR ( Amer) Est GFR (Non-Af Amer) POC Glucose (mg/dL) 183 H Random Glucose Calcium Phosphorus Magnesium Total Bilirubin AST ALT Alkaline Phosphatase Total Protein Albumin Globulin Albumin/Globulin Ratio EKG/Cardiology Studies: Cardiology / EKG Studies 10/04/18 10:52 EKG [ELECTROCARDIOGRAM] Stat Comment: Mode Of Transportation: Reason For Exam: r/o afib Critical Care Progress Note - Nutrition Nutrition: Nutrition Category Date Time Status Consistent Carbohydrate [DIET] Diets 10/02/18 Lunch Active
--- NOTE | 2018-10-04 17:47 | CP.PCM.PN ---
Subjective - Date & Time of Evaluation Date of Evaluation: 10/04/18 Time of Evaluation: 08:25 - Subjective Subjective: 58-year-old male with history of COPD/obstructive sleep apnea, diabetes, hypertension, bladder cancer, bilateral hip pain who presented to emergency room with shortness of breath and pain and swelling of both lower extremities. Patie nt was admitted to intensive care unit and placed on high flow oxygen. Patient also being treated for cellulitis with IV antibiotics. Patient was seen by psychiatry for Xanax and Percocet abuse. Patient refusing BiPAP and intubation. Pmhx: COPD, CHF, Bladder CA, Chronic bilateral hip pain, HTN, DM, TONIO Shx: plate in elbow, repair of torn meniscus left knee All: Cefuroxime, cephalexin, clarithromycin, levofloxacin, moxifloxacin Fmhx: [place] in family Social hx: Former smoker, quit 20 years ago, smoked for 20 years. Hx of alcoholism, heroin abuse. Objective - Vital Signs/Intake and Output Vital Signs (last 24 hours): Temp Pulse Resp BP Pulse Ox 97.4 F L 121 H 29 H 137/77 91 L 10/04/18 16:00 10/04/18 17:24 10/04/18 17:24 10/04/18 17:24 10/04/18 17:24 Intake and Output: 10/04/18 10/04/18 06:59 18:59 Intake Total 800 950 Output Total 700 650 Balance 100 300 - Medications Medications: Current Medications Acetaminophen (Tylenol 650mg/20.3ml Solution Ud) 650 mg PO Q6 PRN PRN Reason: Temperature Last Admin: 10/02/18 18:26 Dose: 650 mg Albuterol/Ipratropium (Duoneb 3 Mg/0.5 Mg (3 Ml) Ud) 3 ml INH RQ6 [facility] Last Admin: 10/04/18 08:00 Dose: 3 ml Apixaban (Eliquis) 5 mg PO BID [facility] Aspirin (Ecotrin) 81 mg PO DAILY [facility] Last Admin: 10/04/18 09:25 Dose: 81 mg Carvedilol (Coreg) 12.5 mg PO BID [facility] Dextrose (Dextrose 50% Inj) 0 ml IV STAT PRN; Protocol PRN Reason: Hypoglycemia Protocol Dextrose (Glutose 15) 0 gm PO ONCE PRN; Protocol PRN Reason: Hypoglycemia Protocol Glucagon (Glucagen Diagnostic Kit) 0 mg IM STAT PRN; Protocol PRN Reason: Hypoglycemia Protocol Dextrose (Dextrose 5% In Water 1000 Ml) 1,000 mls @ 0 mls/hr IV .Q0M PRN; Protocol PRN Reason: Hypoglycemia Protocol Aztreonam 2 gm/ Sodium (Chloride) 100 mls @ 200 mls/hr IVPB Q8H [facility]; Protocol Last Admin: 10/04/18 14:10 Dose: 200 mls/hr Insulin Human Regular (Novolin R) 0 unit SC ACHS [facility]; Protocol Last Admin: 10/04/18 16:35 Dose: 2 u Lorazepam (Ativan) 1 mg PO Q6 PRN PRN Reason: Symptoms of alcohol withdrawl Losartan Potassium (Cozaar) 100 mg PO DAILY [facility] Last Admin: 10/04/18 09:25 Dose: 100 mg Methylprednisolone (Solu-Medrol) 40 mg IVP Q12H [facility] Oxycodone HCl (Oxycontin Extended Release Tab) 10 mg PO Q8H [facility] Stop: 10/04/18 19:01 Last Admin: 10/04/18 11:40 Dose: 10 mg Oxycodone/Acetaminophen (Percocet 5/325 Mg Tab) 1 tab PO Q6H PRN PRN Reason: Pain, moderate (4-7) Stop: 10/07/18 16:30 Pantoprazole Sodium (Protonix Inj) 40 mg IVP DAILY [facility] Last Admin: 10/04/18 09:25 Dose: 40 mg Zolpidem Tartrate (Ambien) 5 mg PO HS PRN PRN Reason: Insomnia Last Admin: 10/02/18 01:46 Dose: 5 mg - Labs Labs: 10/04/18 06:11 10/04/18 06:11 PT 11.5 SECONDS (9.7-12.2) 10/01/18 12:26 INR 1.1 10/01/18 12:26 APTT 27 SECONDS (21-34) 10/01/18 12:26 - Head Exam Head Exam: ATRAUMATIC, NORMOCEPHALIC - ENT Exam ENT Exam: Mucous Membranes Moist - Neck Exam Neck Exam: Normal Inspection - Respiratory Exam Respiratory Exam: Decreased Breath Sounds - Cardiovascular Exam Cardiovascular Exam: Irregular Rhythm Assessment and Plan (1) COPD (chronic obstructive pulmonary disease) Assessment & Plan: continue nebulizer treatment, IV steroids Continue IV antibiotics Patient refusing intubation and BiPAP Followup ABG Status: Acute (2) Cellulitis Assessment & Plan: Continue IV antibiotics and followup culture Status: Acute (3) Polysubstance (including opioids) dependence with physiol dependence Assessment & Plan: seen by psychiatry Started on Ativan as needed Status: Acute
--- NOTE | 2018-10-04 18:00 | CP.PCM.CON ---
History of Present Illness - History of Present Illness History of Present Illness: 58 year old male with pmhx of COPD, Bladder CA, CHF, DM, HTN, peripheral edema, TONIO, alcohol/substancer abuse, chronic b/l hip pain was brought to the ED for shortness of breath, in ED with respiratory distress, refused bipap and intub ation, on high flow O2 at this time, with left leg cellulitis, elevated lactate and wbc on ED labs. elevated temperature at 104F, on cooling blanket, give abx for possible celullitis coverage. Cultures showing Enterobacter from wound on LE but blood c/s neg thus far - started on Azactam Pmhx: COPD, CHF, Bladder CA, Chronic bilateral hip pain, HTN, DM, TONIO Shx: plate in elbow, repair of torn meniscus left knee All: Cefuroxime, cephalexin, clarithromycin, levofloxacin, moxifloxacin Fmhx: [place] in family Social hx: Former smoker, quit 20 years ago, smoked for 20 years. Hx of alcoholism, heroin abuse. Review of Systems - Constitutional Constitutional: absent: Chills, Frequent Falls, Headache, Night Sweats, Snoring, Weakness - EENT Eyes: absent: Blurred Vision, Discharge, Loss of Peripheral Vision, Requires Corrective Lenses Ears: absent: Ear Discharge, Dizziness Nose/Mouth/Throat: absent: Nasal Congestion, Nose Pain, Bleeding Gums, Dysphagia, Mouth Pain - Cardiovascular Cardiovascular: absent: Chest Pain, Claudication, Leg Edema, Palpitations, Pedal Edema, Syncope - Respiratory Respiratory: Cough, Wheezing. absent: Snoring, Stridor, Excessive Mucous Production, Change in Mucous Color - Gastrointestinal Gastrointestinal: absent: Change in Stool Character, Diarrhea - Genitourinary Genitourinary: absent: Hematuria, Pyuria, Urinary Hesitance, Bladder Distension - Integumentary Integumentary: absent: Striae, Swelling - Neurological Neurological: absent: Abnormal Hearing, Burning Sensations, Numbness, Tremor, Vertigo, Weakness - Psychiatric Psychiatric: absent: Anxiety, Hopelessness, Panic Attacks, Paranoia - Endocrine Endocrine: absent: Polydipsia, Polyphagia, Polyuria - Hematologic/Lymphatic Hematologic: absent: Easy Bleeding, Easy Bruising Past Patient History - Infectious Disease Hx of Infectious Diseases: None - Tetanus Immunizations Tetanus Immunization: Unknown - Past Medical History & Family History Past Medical History?: Yes - Past Social History Smoking Status: Former Smoker - CARDIAC Hx Congestive Heart Failure: Yes Hx Hypertension: Yes Hx Peripheral Edema: Yes - PULMONARY Hx Asthma: Yes Hx Chronic Obstructive Pulmonary Disease (COPD): Yes Hx Emphysema: Yes Hx Pneumonia: Yes Hx Sleep Apnea: Yes (NO C PAP) - NEUROLOGICAL Hx Neurological Disorder: No - HEENT Hx HEENT Problems: Yes - RENAL Hx Chronic Kidney Disease: Yes - ENDOCRINE/METABOLIC Hx Endocrine Disorders: Yes Hx Diabetes Mellitus Type 2: Yes - HEMATOLOGICAL/ONCOLOGICAL Hx Blood Disorders: Yes Hx Cancer: Yes (BLADDER) - INTEGUMENTARY Hx Dermatological Problems: Yes (DISCOLORED LOWER EXTREMITIES ) - MUSCULOSKELETAL/RHEUMATOLOGICAL Hx Arthritis: Yes Hx Fractures: Yes (LEFT SHOULDER ORIF LEFT ELBOW RIGHT SHOULDER) - GASTROINTESTINAL Hx Gastritis: Yes (FROM MEDS) - GENITOURINARY/GYNECOLOGICAL Hx Genitourinary Disorders: Yes Hx Bladder Cancer: Yes Hx Hematuria: Yes Other/Comment: BLADDER CANCER - PSYCHIATRIC Hx Substance Use: No - SURGICAL HISTORY Hx Surgeries: Yes Hx Open Reduction Internal Fixation: Yes (LEFT SHOULDER LEFT ELBOW REMOVAL HARDWARE) Hx Orthopedic Surgery: Yes (LEFT KNEE) Other/Comment: TURP; HX: CYSTO WITH BLADDER BX. AND FULG. - ANESTHESIA Hx Anesthesia Reactions: (DIFFICULTY TO AROUSE BUT WAS DISCHARGED) Meds Allergies/Adverse Reactions: Allergies Allergy/AdvReac Type Severity Reaction Status Date / Time cefuroxime Allergy RASH Verified 10/01/18 11:25 cephalexin Allergy RASH Verified 10/01/18 11:25 clarithromycin Allergy RASH Verified 10/01/18 11:25 levofloxacin Allergy RASH Verified 10/01/18 11:25 moxifloxacin Allergy RASH Verified 10/01/18 11:25 - Medications Medications: Current Medications Acetaminophen (Tylenol 650mg/20.3ml Solution Ud) 650 mg PO Q6 PRN PRN Reason: Temperature Last Admin: 10/02/18 18:26 Dose: 650 mg Albuterol/Ipratropium (Duoneb 3 Mg/0.5 Mg (3 Ml) Ud) 3 ml INH RQ6 [facility] Last Admin: 10/04/18 08:00 Dose: 3 ml Apixaban (Eliquis) 5 mg PO BID [facility] Last Admin: 10/04/18 17:45 Dose: 5 mg Aspirin (Ecotrin) 81 mg PO DAILY [facility] Last Admin: 10/04/18 09:25 Dose: 81 mg Carvedilol (Coreg) 12.5 mg PO BID [facility] Last Admin: 10/04/18 17:45 Dose: 12.5 mg Dextrose (Dextrose 50% Inj) 0 ml IV STAT PRN; Protocol PRN Reason: Hypoglycemia Protocol Dextrose (Glutose 15) 0 gm PO ONCE PRN; Protocol PRN Reason: Hypoglycemia Protocol Glucagon (Glucagen Diagnostic Kit) 0 mg IM STAT PRN; Protocol PRN Reason: Hypoglycemia Protocol Dextrose (Dextrose 5% In Water 1000 Ml) 1,000 mls @ 0 mls/hr IV .Q0M PRN; Protocol PRN Reason: Hypoglycemia Protocol Aztreonam 2 gm/ Sodium (Chloride) 100 mls @ 200 mls/hr IVPB Q8H [facility]; Protocol Last Admin: 10/04/18 14:10 Dose: 200 mls/hr Insulin Human Regular (Novolin R) 0 unit SC ACHS [facility]; Protocol Last Admin: 10/04/18 16:35 Dose: 2 u Lorazepam (Ativan) 1 mg PO Q6 PRN PRN Reason: Symptoms of alcohol withdrawl Losartan Potassium (Cozaar) 100 mg PO DAILY [facility] Last Admin: 10/04/18 09:25 Dose: 100 mg Methylprednisolone (Solu-Medrol) 40 mg IVP Q12H [facility] Oxycodone HCl (Oxycontin Extended Release Tab) 10 mg PO Q8H [facility] Stop: 10/04/18 19:01 Last Admin: 10/04/18 11:40 Dose: 10 mg Oxycodone/Acetaminophen (Percocet 5/325 Mg Tab) 1 tab PO Q6H PRN PRN Reason: Pain, moderate (4-7) Stop: 10/07/18 16:30 Pantoprazole Sodium (Protonix Inj) 40 mg IVP DAILY [facility] Last Admin: 10/04/18 09:25 Dose: 40 mg Zolpidem Tartrate (Ambien) 5 mg PO HS PRN PRN Reason: Insomnia Last Admin: 10/02/18 01:46 Dose: 5 mg Physical Exam - Constitutional Appears: No Acute Distress, Chronically Ill - Head Exam Head Exam: ATRAUMATIC, NORMOCEPHALIC - Eye Exam Eye Exam: EOMI, PERRL. absent: Scleral icterus Pupil Exam: NORMAL ACCOMODATION - ENT Exam ENT Exam: Mucous Membranes Dry, Normal External Ear Exam, Normal Oropharynx - Neck Exam Neck exam: Negative for: Lymphadenopathy, Thyromegaly - Respiratory Exam Respiratory Exam: Decreased Breath Sounds, Prolonged Expiratory Phase, Rhonchi - Cardiovascular Exam Cardiovascular Exam: REGULAR RHYTHM, +S1. absent: +S2 - GI/Abdominal Exam GI & Abdominal Exam: Diminished Bowel Sounds, Distended, Guarding, Soft. absent: Organomegaly, Rebound, Rigid, Tenderness - Rectal Exam Rectal Exam: Deferred - Exam Exam: NORMAL INSPECTION - Extremities Exam Extremities exam: Positive for: pedal edema, tenderness. Negative for: calf tenderness, normal capillary refill, normal inspection, pedal pulses present - Back Exam Back exam: absent: CVA tenderness (L), CVA tenderness (R), paraspinal tenderness - Neurological Exam Neurological exam: Alert, CN II-XII Intact, Oriented x3, Reflexes Normal - Psychiatric Exam Psychiatric exam: Depressed - Skin Skin Exam: Dry, Erythema Additional comments: edema + Results - Vital Signs Recent Vital Signs: Last Vital Signs Temp 97.4 F L 10/04/18 16:00 Pulse 121 H 10/04/18 17:24 Resp 29 H 10/04/18 17:24 BP 137/77 10/04/18 17:45 Pulse Ox 91 L 10/04/18 17:24 - Labs Result Diagrams: 10/04/18 06:11 10/04/18 06:11 Labs: Laboratory Results - last 24 hr 10/03/18 10/04/18 10/04/18 21:22 06:11 06:11 WBC 16.0 H RBC 3.96 L Hgb 11.8 L Hct 36.2 MCV 91.4 MCH 29.7 MCHC 32.6 L RDW 14.2 Plt Count 231 MPV 7.8 Neut % (Auto) 91.3 H Lymph % (Auto) 4.6 L [place] % (Auto) 4.0 Eos % (Auto) 0.0 Baso % (Auto) 0.1 Neut # (Auto) 14.6 H Lymph # (Auto) 0.7 L [place] # (Auto) 0.6 Eos # (Auto) 0.0 Baso # (Auto) 0.0 Neutrophils % (Manual) 94 H Lymphocytes % (Manual) 2 L Monocytes % (Manual) 4 Platelet Estimate Normal RBC Morphology Normal Puncture Site pCO2 pO2 HCO3 ABG pH ABG Total CO2 ABG O2 Saturation ABG Base Excess ABG Hemoglobin ABG Carboxyhemoglobin POC ABG HHb (Measured) ABG Methemoglobin Von Test A-a O2 Difference Respiratory Index Hgb O2 Saturation FiO2 Sodium 139 Potassium 3.9 Chloride 102 Carbon Dioxide 31 H Anion Gap 11 BUN 31 H Creatinine 0.7 L Est GFR ( Amer) > 60 Est GFR (Non-Af Amer) > 60 POC Glucose (mg/dL) 193 H Random Glucose 172 H D Calcium 9.1 Phosphorus 1.8 L Magnesium 2.5 H Total Bilirubin 0.7 AST 48 ALT 47 Alkaline Phosphatase 89 Total Protein 7.0 Albumin 4.0 Globulin 3.1 Albumin/Globulin Ratio 1.3 10/04/18 10/04/18 10/04/18 07:20 11:29 11:41 WBC RBC Hgb Hct MCV MCH MCHC RDW Plt Count MPV Neut % (Auto) Lymph % (Auto) [place] % (Auto) Eos % (Auto) Baso % (Auto) Neut # (Auto) Lymph # (Auto) [place] # (Auto) Eos # (Auto) Baso # (Auto) Neutrophils % (Manual) Lymphocytes % (Manual) Monocytes % (Manual) Platelet Estimate RBC Morphology Puncture Site L/b pCO2 40 pO2 97 HCO3 25.9 ABG pH 7.42 ABG Total CO2 27.1 ABG O2 Saturation 97.8 ABG Base Excess 1.3 ABG Hemoglobin 10.2 L ABG Carboxyhemoglobin 1.2 POC ABG HHb (Measured) 2.2 ABG Methemoglobin 0.7 Von Test Na A-a O2 Difference 210.0 Respiratory Index 2.2 Hgb O2 Saturation 95.9 FiO2 50.0 Sodium Potassium Chloride Carbon Dioxide Anion Gap BUN Creatinine Est GFR ( Amer) Est GFR (Non-Af Amer) POC Glucose (mg/dL) 185 H 239 H Random Glucose Calcium Phosphorus Magnesium Total Bilirubin AST ALT Alkaline Phosphatase Total Protein Albumin Globulin Albumin/Globulin Ratio 10/04/18 15:58 WBC RBC Hgb Hct MCV MCH MCHC RDW Plt Count MPV Neut % (Auto) Lymph % (Auto) [place] % (Auto) Eos % (Auto) Baso % (Auto) Neut # (Auto) Lymph # (Auto) [place] # (Auto) Eos # (Auto) Baso # (Auto) Neutrophils % (Manual) Lymphocytes % (Manual) Monocytes % (Manual) Platelet Estimate RBC Morphology Puncture Site pCO2 pO2 HCO3 ABG pH ABG Total CO2 ABG O2 Saturation ABG Base Excess ABG Hemoglobin ABG Carboxyhemoglobin POC ABG HHb (Measured) ABG Methemoglobin Von Test A-a O2 Difference Respiratory Index Hgb O2 Saturation FiO2 Sodium Potassium Chloride Carbon Dioxide Anion Gap BUN Creatinine Est GFR ( Amer) Est GFR (Non-Af Amer) POC Glucose (mg/dL) 183 H Random Glucose Calcium Phosphorus Magnesium Total Bilirubin AST ALT Alkaline Phosphatase Total Protein Albumin Globulin Albumin/Globulin Ratio Assessment & Plan (1) Alcohol abuse Status: Acute (2) COPD (chronic obstructive pulmonary disease) Status: Acute (3) Cellulitis Status: Acute (4) Dependent edema Status: Acute (5) Emphysema of lung Status: Acute (6) HTN (hypertension) Status: Acute (7) Polysubstance (including opioids) dependence with physiol dependence Status: Acute (8) Avascular necrosis of left femoral head Status: Chronic (9) Avascular necrosis of right femoral head Status: Chronic (10) Degenerative joint disease of right hip Status: Chronic - Assessment and Plan (Free Text) Assessment: cont IV antibiotics wound care follow up consider podiatrey eval for [facility] boot rx add Clinda for Gram + coverage cont azactam
[2018-10-04] MEDS: Clindamycin 600mg/50ml NS 600 MG/50 ML BAG IVPB SCH (18:41)
--- NOTE | 2018-10-04 23:27 | CP.PCM.PN ---
Subjective - Date & Time of Evaluation Date of Evaluation: 10/04/18 Time of Evaluation: 15:10 - Subjective Subjective: Patient seen and evaluated No cardiac events noted Has dyspnea Pulmonary mgt Objective - Vital Signs/Intake and Output Vital Signs (last 24 hours): Temp Pulse Resp BP Pulse Ox 97.8 F 99 H 30 H 137/75 95 10/04/18 20:00 10/04/18 22:00 10/04/18 22:11 10/04/18 22:01 10/04/18 22:00 Intake and Output: 10/04/18 10/05/18 18:59 06:59 Intake Total 1200 370 Output Total 650 Balance 550 370 - Medications Medications: Current Medications Acetaminophen (Tylenol 650mg/20.3ml Solution Ud) 650 mg PO Q6 PRN PRN Reason: Temperature Last Admin: 10/02/18 18:26 Dose: 650 mg Albuterol/Ipratropium (Duoneb 3 Mg/0.5 Mg (3 Ml) Ud) 3 ml INH RQ6 [facility] Last Admin: 10/04/18 20:05 Dose: 3 ml Apixaban (Eliquis) 5 mg PO BID [facility] Last Admin: 10/04/18 17:45 Dose: 5 mg Aspirin (Ecotrin) 81 mg PO DAILY [facility] Last Admin: 10/04/18 09:25 Dose: 81 mg Carvedilol (Coreg) 12.5 mg PO BID [facility] Last Admin: 10/04/18 17:45 Dose: 12.5 mg Dextrose (Dextrose 50% Inj) 0 ml IV STAT PRN; Protocol PRN Reason: Hypoglycemia Protocol Dextrose (Glutose 15) 0 gm PO ONCE PRN; Protocol PRN Reason: Hypoglycemia Protocol Glucagon (Glucagen Diagnostic Kit) 0 mg IM STAT PRN; Protocol PRN Reason: Hypoglycemia Protocol Dextrose (Dextrose 5% In Water 1000 Ml) 1,000 mls @ 0 mls/hr IV .Q0M PRN; Protocol PRN Reason: Hypoglycemia Protocol Aztreonam 2 gm/ Sodium (Chloride) 100 mls @ 200 mls/hr IVPB Q8H [facility]; Protocol Last Admin: 10/04/18 21:10 Dose: 200 mls/hr Clindamycin Phosphate (Cleocin 600mg/50ml Ns) 600 mg in 50 mls @ 100 mls/hr IVPB Q8H [facility]; Protocol Last Admin: 10/04/18 18:41 Dose: 100 mls/hr Insulin Human Regular (Novolin R) 0 unit SC ACHS [facility]; Protocol Last Admin: 10/04/18 16:35 Dose: 2 u Lorazepam (Ativan) 1 mg PO Q6 PRN PRN Reason: Symptoms of alcohol withdrawl Last Admin: 10/04/18 22:35 Dose: 1 mg Losartan Potassium (Cozaar) 100 mg PO DAILY [facility] Last Admin: 10/04/18 09:25 Dose: 100 mg Methylprednisolone (Solu-Medrol) 40 mg IVP Q12H [facility] Last Admin: 10/04/18 21:00 Dose: 40 mg Oxycodone/Acetaminophen (Percocet 5/325 Mg Tab) 1 tab PO Q6H PRN PRN Reason: Pain, moderate (4-7) Stop: 10/07/18 16:30 Pantoprazole Sodium (Protonix Inj) 40 mg IVP DAILY [facility] Last Admin: 10/04/18 09:25 Dose: 40 mg Zolpidem Tartrate (Ambien) 5 mg PO HS PRN PRN Reason: Insomnia Last Admin: 10/02/18 01:46 Dose: 5 mg - Labs Labs: 10/04/18 06:11 10/04/18 06:11 PT 11.5 SECONDS (9.7-12.2) 10/01/18 12:26 INR 1.1 10/01/18 12:26 APTT 27 SECONDS (21-34) 10/01/18 12:26
[2018-10-05] MEDS: Albuterol-Ipratrop 3 mg / 0.5 (3 ml) UD INH SCH ×4 (02:09→20:06)
[2018-10-05] MEDS: Oxycodone/Acetaminophen 5/325 mg Tab PO PRN ×3 (03:21→21:10)
[2018-10-05] MEDS: Clindamycin 600mg/50ml NS 600 MG/50 ML BAG IVPB SCH ×3 (03:45→17:59)
[2018-10-05] MEDS: Aztreonam 2 GM in Sodium Chloride 0.9% 100 ML IVPB SCH ×3 (05:00→21:15)
[2018-10-05 06:33] LABS: BASO % 0.1 % (0.0-2.0); HEMOGLOBIN 11.2 g/dL (12.0-18.0); LYMPH # 0.5 K/uL (1.0-4.3); LYMPH % 3.9 % (20.0-40.0); MEAN CELL VOLUME 92.2 fL (80.0-94.0); MEAN CORPUSCULAR HGB CONC 32.5 g/dL (33.0-37.0); MEAN PLATELET VOLUME 8.3 fL (7.2-11.7); MONO # 0.4 K/uL (0.0-0.8); MONO % 3.1 % (0.0-10.0); NEUT # 12.9 K/uL (1.8-7.0); NEUT % 92.9 % (50.0-75.0); PLATELET COUNT 242 K/uL (130-400); RBC 3.75 Mil/uL (4.40-5.90); RED CELL DISTRIBUTION WIDTH 14.5 % (11.5-14.5)
[2018-10-05 06:49] LABS: ALB/GLOB RATIO 1.1 (1.0-2.1); ALBUMIN 3.7 g/dL (3.5-5.0); ALT/SGPT 71 U/L (21-72); AST/SGOT 93 U/L (17-59); BLOOD UREA NITROGEN 30 mg/dL (9-20); CALCIUM 8.5 mg/dl (8.6-10.4); GFR NON-AFRICAN AMERICAN > 60
[2018-10-05] MEDS: (Novolin R) Insulin Human Regular 100 units/ml vial SC SCH ×4 (07:50→22:00)
[2018-10-05] MEDS: MethylPREDNISolone 40 mg Vial IVP SCH ×2 (07:50→21:00)
[2018-10-05 08:13] LABS: LYMPHOCYTE 6 % (20-40); MONOCYTE 5 % (0-10); NEUTROPHIL 89 % (50-75); PLATELET ESTIMATE NORMAL (NORMAL); TOTAL CELLS COUNTED 100
[2018-10-05] MEDS: oxyCODONE 10 mg ER Tab (oxyCONTIN) PO SCH ×2 (09:40→17:55)
--- NOTE | 2018-10-05 11:27 | CP.PCM.PN ---
Subjective - Date & Time of Evaluation Date of Evaluation: 10/05/18 Time of Evaluation: 09:00 - Subjective Subjective: Patient examined in chair, alert, little lethargic, but able to participate in discussion. His condition is about the same as yesterday; labored breathing, shallow respirations,congested lungs. O2 supplied via NC. Abdomen is large, dist ended, diminished bowel sounds. No BM since the admission. LEs still edematous, wheeping edema and patient is unable to stand up unless max assistance was provided. Patient is continuously asking for pain meds and complains of not being able to sleep. Objective - Vital Signs/Intake and Output Vital Signs (last 24 hours): Temp Pulse Resp BP Pulse Ox 97.9 F 108 H 28 H 127/107 H 99 10/05/18 08:00 10/05/18 11:00 10/05/18 11:01 10/05/18 10:30 10/05/18 11:00 Intake and Output: 10/05/18 10/05/18 06:59 18:59 Intake Total 1000 350 Output Total 750 300 Balance 250 50 - Medications Medications: Current Medications Acetaminophen (Tylenol 650mg/20.3ml Solution Ud) 650 mg PO Q6 PRN PRN Reason: Temperature Last Admin: 10/02/18 18:26 Dose: 650 mg Albuterol/Ipratropium (Duoneb 3 Mg/0.5 Mg (3 Ml) Ud) 3 ml INH RQ6 [facility] Last Admin: 10/05/18 08:34 Dose: Not Given Apixaban (Eliquis) 5 mg PO BID [facility] Last Admin: 10/05/18 09:40 Dose: 5 mg Aspirin (Ecotrin) 81 mg PO DAILY [facility] Last Admin: 10/05/18 09:42 Dose: 81 mg Carvedilol (Coreg) 25 mg PO BID [facility] Last Admin: 10/05/18 09:42 Dose: 25 mg Dextrose (Dextrose 50% Inj) 0 ml IV STAT PRN; Protocol PRN Reason: Hypoglycemia Protocol Dextrose (Glutose 15) 0 gm PO ONCE PRN; Protocol PRN Reason: Hypoglycemia Protocol Glucagon (Glucagen Diagnostic Kit) 0 mg IM STAT PRN; Protocol PRN Reason: Hypoglycemia Protocol Dextrose (Dextrose 5% In Water 1000 Ml) 1,000 mls @ 0 mls/hr IV .Q0M PRN; Protocol PRN Reason: Hypoglycemia Protocol Clindamycin Phosphate (Cleocin 600mg/50ml Ns) 600 mg in 50 mls @ 100 mls/hr IVPB Q8H [facility]; Protocol Last Admin: 10/05/18 11:12 Dose: 100 mls/hr Insulin Human Regular (Novolin R) 0 unit SC ACHS [facility]; Protocol Last Admin: 10/05/18 07:50 Dose: 3 u Lorazepam (Ativan) 1 mg PO Q6 PRN PRN Reason: Symptoms of alcohol withdrawl Last Admin: 10/05/18 05:10 Dose: 1 mg Losartan Potassium (Cozaar) 100 mg PO DAILY [facility] Last Admin: 10/05/18 09:42 Dose: 100 mg Methylprednisolone (Solu-Medrol) 40 mg IVP Q12H [facility] Last Admin: 10/05/18 07:50 Dose: 40 mg Oxycodone HCl (Oxycontin Extended Release Tab) 10 mg PO Q8H [facility] Stop: 10/08/18 10:01 Last Admin: 10/05/18 09:40 Dose: 10 mg Oxycodone/Acetaminophen (Percocet 5/325 Mg Tab) 1 tab PO Q6H PRN PRN Reason: Pain, moderate (4-7) Stop: 10/07/18 16:30 Last Admin: 10/05/18 03:21 Dose: 1 tab Pantoprazole Sodium (Protonix Inj) 40 mg IVP DAILY [facility] Last Admin: 10/05/18 10:58 Dose: 40 mg Zolpidem Tartrate (Ambien) 5 mg PO HS PRN PRN Reason: Insomnia Last Admin: 10/02/18 01:46 Dose: 5 mg - Labs Labs: 10/05/18 06:26 10/05/18 06:24 PT 11.5 SECONDS (9.7-12.2) 10/01/18 12:26 INR 1.1 10/01/18 12:26 APTT 27 SECONDS (21-34) 10/01/18 12:26 - Constitutional Appears: In Acute Distress, Chronically Ill - Head Exam Head Exam: ATRAUMATIC, NORMAL INSPECTION, NORMOCEPHALIC - Eye Exam Eye Exam: EOMI, Normal appearance, PERRL Pupil Exam: NORMAL ACCOMODATION, PERRL - ENT Exam ENT Exam: Mucous Membranes Dry - Neck Exam Additional comments: Extended to right side - Respiratory Exam Respiratory Exam: Decreased Breath Sounds, Rhonchi, Respiratory Distress - Cardiovascular Exam Cardiovascular Exam: Tachycardia - GI/Abdominal Exam GI & Abdominal Exam: Distended, Diminished Bowel Sounds - Exam Exam: NORMAL INSPECTION - Extremities Exam Additional comments: edema, redness, molded - Back Exam Back Exam: NORMAL INSPECTION - Neurological Exam Neurological Exam: Alert, Oriented x3 Neuro motor strength exam: Left Upper Extremity: 3, Right Upper Extremity: 3, Left Lower Extremity: 2/1, Right Lower Extremity: 2/1 - Psychiatric Exam Psychiatric exam: Agitated, Anxious - Skin Skin Exam: Diaphoretic, Mottled, Normal Color, Vesicles Assessment and Plan - Assessment and Plan (Free Text) Assessment: Goals of care discussed in term of his respiratory distress. I shared my co ncerns that his breathing could get worse and may require aggressive measures for respiratory support. Patient is still refusing C Pap and only accepts high flow O2. Patient very clearly stated that he would never allow the ET tube down his throat and that nobody could make him have it done. I acknowledged his rights and suggested that we talk about this again when he was more alert and hopefully with better respiratory status. Patient repeatedly requested his Oxy 20 mg PO I explained that his condition is most likely caused by Opioids abuse as well as ETOH and offered that we should ask about Drug Rehab. Impression * Acute respiratory distress * Opioid dependency, most likely in opioid withdrawal * Limited mobility * Wheeping edema to LEs * Opioid induced constipation * Patient is unrealistic about his condition * Patient changes his position on Code status, daily Suggestion * Continue O 2 supplement * Antianxiety meds as per Doctor Cortés * Assist OOB to chair, elevate LEs * Wound care for LEs * Aggressive bowel regimen * Full Code. Code will need to be further discussed until patient and family clear with the wishes regarding aggressive interventions Advance care discussion 46 min Palliative care will remain on board and continue support
[2018-10-05] MEDS ORDERED: oxyCODONE 10 mg ER Tab (oxyCONTIN) PO SCH (14:00)
--- NOTE | 2018-10-05 18:09 | CP.PCM.PN ---
Subjective - Date & Time of Evaluation Date of Evaluation: 10/05/18 Time of Evaluation: 08:00 - Subjective Subjective: 58 year old male with pmhx of COPD, Bladder CA, CHF, DM, HTN, peripheral edema, TNOIO, alcohol/substancer abuse, chronic b/l hip pain was brought to the ED for shortness of breath, in ED with respiratory distress, refused bipap and intuba tion, on high flow O2 at this time, with left leg cellulitis, elevated lactate and wbc on ED labs. elevated temperature at 104F, on cooling blanket, give abx for possible celullitis coverage. Cultures showing Enterobacter from wound on LE but blood c/s neg thus far - started on Azactam and cleocin remains SOB with bilat leg edema wound care in progress Objective - Vital Signs/Intake and Output Vital Signs (last 24 hours): Temp Pulse Resp BP Pulse Ox 97.9 F 96 H 17 159/69 H 99 10/05/18 16:00 10/05/18 18:00 10/05/18 18:00 10/05/18 17:55 10/05/18 18:00 Intake and Output: 10/05/18 10/05/18 06:59 18:59 Intake Total 1000 720 Output Total 750 600 Balance 250 120 - Medications Medications: Current Medications Acetaminophen (Tylenol 650mg/20.3ml Solution Ud) 650 mg PO Q6 PRN PRN Reason: Temperature Last Admin: 10/02/18 18:26 Dose: 650 mg Albuterol/Ipratropium (Duoneb 3 Mg/0.5 Mg (3 Ml) Ud) 3 ml INH RQ6 [facility] Last Admin: 10/05/18 13:27 Dose: 3 ml Apixaban (Eliquis) 5 mg PO BID [facility] Last Admin: 10/05/18 17:54 Dose: 5 mg Aspirin (Ecotrin) 81 mg PO DAILY [facility] Last Admin: 10/05/18 09:42 Dose: 81 mg Carvedilol (Coreg) 25 mg PO BID [facility] Last Admin: 10/05/18 17:55 Dose: 25 mg Dextrose (Dextrose 50% Inj) 0 ml IV STAT PRN; Protocol PRN Reason: Hypoglycemia Protocol Dextrose (Glutose 15) 0 gm PO ONCE PRN; Protocol PRN Reason: Hypoglycemia Protocol Glucagon (Glucagen Diagnostic Kit) 0 mg IM STAT PRN; Protocol PRN Reason: Hypoglycemia Protocol Dextrose (Dextrose 5% In Water 1000 Ml) 1,000 mls @ 0 mls/hr IV .Q0M PRN; Protocol PRN Reason: Hypoglycemia Protocol Clindamycin Phosphate (Cleocin 600mg/50ml Ns) 600 mg in 50 mls @ 100 mls/hr IVPB Q8H [facility]; Protocol Last Admin: 10/05/18 17:59 Dose: 100 mls/hr Aztreonam 2 gm/ Sodium (Chloride) 100 mls @ 200 mls/hr IVPB Q8H [facility]; Protocol Last Admin: 10/05/18 13:35 Dose: 200 mls/hr Insulin Human Regular (Novolin R) 0 unit SC ACHS [facility]; Protocol Last Admin: 10/05/18 16:48 Dose: 2 u Lorazepam (Ativan) 1 mg PO Q6 PRN PRN Reason: Symptoms of alcohol withdrawl Last Admin: 10/05/18 05:10 Dose: 1 mg Losartan Potassium (Cozaar) 100 mg PO DAILY [facility] Last Admin: 10/05/18 09:42 Dose: 100 mg Methylprednisolone (Solu-Medrol) 40 mg IVP Q12H [facility] Last Admin: 10/05/18 07:50 Dose: 40 mg Oxycodone HCl (Oxycontin Extended Release Tab) 10 mg PO Q8H [facility] Stop: 10/08/18 10:01 Last Admin: 10/05/18 17:55 Dose: 10 mg Oxycodone/Acetaminophen (Percocet 5/325 Mg Tab) 1 tab PO Q6H PRN PRN Reason: Pain, moderate (4-7) Stop: 10/07/18 16:30 Last Admin: 10/05/18 12:20 Dose: 1 tab Pantoprazole Sodium (Protonix Inj) 40 mg IVP DAILY [facility] Last Admin: 10/05/18 10:58 Dose: 40 mg Zolpidem Tartrate (Ambien) 5 mg PO HS PRN PRN Reason: Insomnia Last Admin: 10/02/18 01:46 Dose: 5 mg - Labs Labs: 10/05/18 06:26 10/05/18 06:24 PT 11.5 SECONDS (9.7-12.2) 10/01/18 12:26 INR 1.1 10/01/18 12:26 APTT 27 SECONDS (21-34) 10/01/18 12:26 - Constitutional Appears: No Acute Distress, Chronically Ill - Head Exam Head Exam: NORMOCEPHALIC - Eye Exam Eye Exam: absent: Scleral icterus - ENT Exam ENT Exam: Mucous Membranes Dry - Neck Exam Neck Exam: absent: Lymphadenopathy - Respiratory Exam Respiratory Exam: Decreased Breath Sounds - Cardiovascular Exam Cardiovascular Exam: REGULAR RHYTHM - GI/Abdominal Exam GI & Abdominal Exam: Distended, Soft - Rectal Exam Rectal Exam: Deferred - Exam Exam: NORMAL INSPECTION - Extremities Exam Extremities Exam: Pedal Edema, Tenderness - Back Exam Back Exam: absent: CVA tenderness (L), CVA tenderness (R) - Neurological Exam Neurological Exam: Alert, Awake, Oriented x3 - Psychiatric Exam Psychiatric exam: Depressed Assessment and Plan (1) Alcohol abuse Status: Acute (2) COPD (chronic obstructive pulmonary disease) Status: Acute (3) Cellulitis Status: Acute (4) Dependent edema Status: Acute (5) Emphysema of lung Status: Acute (6) HTN (hypertension) Status: Acute (7) Polysubstance (including opioids) dependence with physiol dependence Status: Acute (8) Avascular necrosis of left femoral head Status: Chronic (9) Avascular necrosis of right femoral head Status: Chronic (10) Degenerative joint disease of right hip Status: Chronic - Assessment and Plan (Free Text) Assessment: 58 year old male with pmhx of COPD, Bladder CA, CHF, DM, HTN, peripheral edema, TONIO, alcohol/substancer abuse, chronic b/l hip pain was brought to the ED for shortness of breath, in ED with respiratory distress, refused bipap and intubation, on high flow O2 at this time, with left leg cellulitis, elevated lactate and wbc on ED labs. elevated temperature at 104F, on cooling blanket, give abx for possible celullitis coverage. Cultures showing Enterobacter from wound on LE but blood c/s neg thus far - started on Azactam/ Cleocin prognosis guarded
--- NOTE | 2018-10-05 19:17 | CARD ---
APPROVED REPORT Date of service: 10/04/2018 EKG Measurement Heart [id number] [id number] <Conclusion> Sinus Tachycardia with frequent APCs , some are aberrantly conducted Abnormal ECG
--- NOTE | 2018-10-05 19:36 | CP.PCM.PN ---
Subjective - Date & Time of Evaluation Date of Evaluation: 10/05/18 Time of Evaluation: 10:45 - Subjective Subjective: clinically same Objective - Vital Signs/Intake and Output Vital Signs (last 24 hours): Temp Pulse Resp BP Pulse Ox 97.9 F 92 H 20 159/69 H 98 10/05/18 16:00 10/05/18 19:00 10/05/18 19:00 10/05/18 17:55 10/05/18 19:00 Intake and Output: 10/05/18 10/06/18 18:59 06:59 Intake Total 720 150 Output Total 600 Balance 120 150 - Medications Medications: Current Medications Acetaminophen (Tylenol 650mg/20.3ml Solution Ud) 650 mg PO Q6 PRN PRN Reason: Temperature Last Admin: 10/02/18 18:26 Dose: 650 mg Albuterol/Ipratropium (Duoneb 3 Mg/0.5 Mg (3 Ml) Ud) 3 ml INH RQ6 [facility] Last Admin: 10/05/18 13:27 Dose: 3 ml Apixaban (Eliquis) 5 mg PO BID [facility] Last Admin: 10/05/18 17:54 Dose: 5 mg Aspirin (Ecotrin) 81 mg PO DAILY [facility] Last Admin: 10/05/18 09:42 Dose: 81 mg Carvedilol (Coreg) 25 mg PO BID [facility] Last Admin: 10/05/18 17:55 Dose: 25 mg Dextrose (Dextrose 50% Inj) 0 ml IV STAT PRN; Protocol PRN Reason: Hypoglycemia Protocol Dextrose (Glutose 15) 0 gm PO ONCE PRN; Protocol PRN Reason: Hypoglycemia Protocol Glucagon (Glucagen Diagnostic Kit) 0 mg IM STAT PRN; Protocol PRN Reason: Hypoglycemia Protocol Dextrose (Dextrose 5% In Water 1000 Ml) 1,000 mls @ 0 mls/hr IV .Q0M PRN; Protocol PRN Reason: Hypoglycemia Protocol Clindamycin Phosphate (Cleocin 600mg/50ml Ns) 600 mg in 50 mls @ 100 mls/hr IVPB Q8H [facility]; Protocol Last Admin: 10/05/18 17:59 Dose: 100 mls/hr Aztreonam 2 gm/ Sodium (Chloride) 100 mls @ 200 mls/hr IVPB Q8H [facility]; Protocol Last Admin: 10/05/18 13:35 Dose: 200 mls/hr Insulin Human Regular (Novolin R) 0 unit SC ACHS [facility]; Protocol Last Admin: 10/05/18 16:48 Dose: 2 u Lorazepam (Ativan) 1 mg PO Q6 PRN PRN Reason: Symptoms of alcohol withdrawl Last Admin: 10/05/18 05:10 Dose: 1 mg Losartan Potassium (Cozaar) 100 mg PO DAILY [facility] Last Admin: 10/05/18 09:42 Dose: 100 mg Methylprednisolone (Solu-Medrol) 40 mg IVP Q12H [facility] Last Admin: 10/05/18 07:50 Dose: 40 mg Oxycodone HCl (Oxycontin Extended Release Tab) 10 mg PO Q8H [facility] Stop: 10/08/18 10:01 Last Admin: 10/05/18 17:55 Dose: 10 mg Oxycodone/Acetaminophen (Percocet 5/325 Mg Tab) 1 tab PO Q6H PRN PRN Reason: Pain, moderate (4-7) Stop: 10/07/18 16:30 Last Admin: 10/05/18 12:20 Dose: 1 tab Pantoprazole Sodium (Protonix Inj) 40 mg IVP DAILY [facility] Last Admin: 10/05/18 10:58 Dose: 40 mg Zolpidem Tartrate (Ambien) 5 mg PO HS PRN PRN Reason: Insomnia Last Admin: 10/02/18 01:46 Dose: 5 mg - Labs Labs: 10/05/18 06:26 10/05/18 06:24 PT 11.5 SECONDS (9.7-12.2) 10/01/18 12:26 INR 1.1 10/01/18 12:26 APTT 27 SECONDS (21-34) 10/01/18 12:26 - Constitutional Appears: Well - Head Exam Head Exam: ATRAUMATIC, NORMAL INSPECTION, NORMOCEPHALIC - Eye Exam Eye Exam: EOMI, Normal appearance, PERRL Pupil Exam: NORMAL ACCOMODATION, PERRL - ENT Exam ENT Exam: Mucous Membranes Moist, Normal Exam - Neck Exam Neck Exam: Full ROM, Normal Inspection. absent: Lymphadenopathy - Respiratory Exam Respiratory Exam: Decreased Breath Sounds - Cardiovascular Exam Cardiovascular Exam: REGULAR RHYTHM, +S1, +S2 - GI/Abdominal Exam GI & Abdominal Exam: Soft, Diminished Bowel Sounds - Rectal Exam Rectal Exam: Deferred
--- NOTE | 2018-10-05 21:47 | CP.PCM.CON ---
History of Present Illness - History of Present Illness History of Present Illness: Podiatry Consult Note for Dr. Singleton 58M with PMH COPD, CHF, Bladder CA, Chronic bilateral hip pain, HTN, DM, TONIO seen at bedside for painful b/l LE edema with pain, left worse than right. Patient states that his legs have been swollen for several weeks and have been increasing in redness. He has also recently noticed that they are blistering and leaking fluid. He is AAO x 3 and NAD during examination. Denies any further pedal complaints. Denies any recent N/V/F/C/D Review of Systems - Review of Systems All systems: reviewed and no additional remarkable complaints except Review of Systems: as per HPI Past Patient History - Infectious Disease Hx of Infectious Diseases: None - Tetanus Immunizations Tetanus Immunization: Unknown - Past Medical History & Family History Past Medical History?: Yes - Past Social History Smoking Status: Former Smoker - CARDIAC Hx Congestive Heart Failure: Yes Hx Hypertension: Yes Hx Peripheral Edema: Yes - PULMONARY Hx Asthma: Yes Hx Chronic Obstructive Pulmonary Disease (COPD): Yes Hx Emphysema: Yes Hx Pneumonia: Yes Hx Sleep Apnea: Yes (NO C PAP) - NEUROLOGICAL Hx Neurological Disorder: No - HEENT Hx HEENT Problems: Yes - RENAL Hx Chronic Kidney Disease: Yes - ENDOCRINE/METABOLIC Hx Endocrine Disorders: Yes Hx Diabetes Mellitus Type 2: Yes - HEMATOLOGICAL/ONCOLOGICAL Hx Blood Disorders: Yes Hx Cancer: Yes (BLADDER) - INTEGUMENTARY Hx Dermatological Problems: Yes (DISCOLORED LOWER EXTREMITIES ) - MUSCULOSKELETAL/RHEUMATOLOGICAL Hx Arthritis: Yes Hx Fractures: Yes (LEFT SHOULDER ORIF LEFT ELBOW RIGHT SHOULDER) - GASTROINTESTINAL Hx Gastritis: Yes (FROM MEDS) - GENITOURINARY/GYNECOLOGICAL Hx Genitourinary Disorders: Yes Hx Bladder Cancer: Yes Hx Hematuria: Yes Other/Comment: BLADDER CANCER - PSYCHIATRIC Hx Substance Use: No - SURGICAL HISTORY Hx Surgeries: Yes Hx Open Reduction Internal Fixation: Yes (LEFT SHOULDER LEFT ELBOW REMOVAL HARDWARE) Hx Orthopedic Surgery: Yes (LEFT KNEE) Other/Comment: TURP; HX: CYSTO WITH BLADDER BX. AND FULG. - ANESTHESIA Hx Anesthesia Reactions: (DIFFICULTY TO AROUSE BUT WAS DISCHARGED) Meds Allergies/Adverse Reactions: Allergies Allergy/AdvReac Type Severity Reaction Status Date / Time cefuroxime Allergy RASH Verified 10/01/18 11:25 cephalexin Allergy RASH Verified 10/01/18 11:25 clarithromycin Allergy RASH Verified 10/01/18 11:25 levofloxacin Allergy RASH Verified 10/01/18 11:25 moxifloxacin Allergy RASH Verified 10/01/18 11:25 - Medications Medications: Current Medications Acetaminophen (Tylenol 650mg/20.3ml Solution Ud) 650 mg PO Q6 PRN PRN Reason: Temperature Last Admin: 10/02/18 18:26 Dose: 650 mg Albuterol/Ipratropium (Duoneb 3 Mg/0.5 Mg (3 Ml) Ud) 3 ml INH RQ6 [facility] Last Admin: 10/05/18 20:06 Dose: 3 ml Apixaban (Eliquis) 5 mg PO BID [facility] Last Admin: 10/05/18 17:54 Dose: 5 mg Aspirin (Ecotrin) 81 mg PO DAILY [facility] Last Admin: 10/05/18 09:42 Dose: 81 mg Carvedilol (Coreg) 25 mg PO BID [facility] Last Admin: 10/05/18 17:55 Dose: 25 mg Dextrose (Dextrose 50% Inj) 0 ml IV STAT PRN; Protocol PRN Reason: Hypoglycemia Protocol Dextrose (Glutose 15) 0 gm PO ONCE PRN; Protocol PRN Reason: Hypoglycemia Protocol Glucagon (Glucagen Diagnostic Kit) 0 mg IM STAT PRN; Protocol PRN Reason: Hypoglycemia Protocol Dextrose (Dextrose 5% In Water 1000 Ml) 1,000 mls @ 0 mls/hr IV .Q0M PRN; Protocol PRN Reason: Hypoglycemia Protocol Clindamycin Phosphate (Cleocin 600mg/50ml Ns) 600 mg in 50 mls @ 100 mls/hr IVPB Q8H [facility]; Protocol Last Admin: 10/05/18 17:59 Dose: 100 mls/hr Aztreonam 2 gm/ Sodium (Chloride) 100 mls @ 200 mls/hr IVPB Q8H [facility]; Protocol Last Admin: 10/05/18 21:15 Dose: 200 mls/hr Insulin Human Regular (Novolin R) 0 unit SC ACHS [facility]; Protocol Last Admin: 10/05/18 16:48 Dose: 2 u Lorazepam (Ativan) 1 mg PO Q6 PRN PRN Reason: Symptoms of alcohol withdrawl Last Admin: 10/05/18 05:10 Dose: 1 mg Losartan Potassium (Cozaar) 100 mg PO DAILY [facility] Last Admin: 10/05/18 09:42 Dose: 100 mg Methylprednisolone (Solu-Medrol) 40 mg IVP Q12H [facility] Last Admin: 10/05/18 21:00 Dose: 40 mg Oxycodone HCl (Oxycontin Extended Release Tab) 10 mg PO Q8H [facility] Stop: 10/08/18 10:01 Last Admin: 10/05/18 17:55 Dose: 10 mg Oxycodone/Acetaminophen (Percocet 5/325 Mg Tab) 1 tab PO Q6H PRN PRN Reason: Pain, moderate (4-7) Stop: 10/07/18 16:30 Last Admin: 10/05/18 21:10 Dose: 1 tab Pantoprazole Sodium (Protonix Inj) 40 mg IVP DAILY [facility] Last Admin: 10/05/18 10:58 Dose: 40 mg Zolpidem Tartrate (Ambien) 5 mg PO HS PRN PRN Reason: Insomnia Last Admin: 10/02/18 01:46 Dose: 5 mg Physical Exam - Constitutional Appears: Well, Non-toxic, No Acute Distress, Older Than Stated Age - Extremities Exam Additional comments: LE focused exam: Vasc: DP/PT pulses non-palpable secondary to b/l LE edema. CFT < 3 seconds to all digits. Skin temperature increased b/l from proximal to distal. Severe, pitting edema noted to b/l LE, left worse than right Neuro: Epicritic and protective sensation grossly intact b/l Derm: Hyperpigmentation noted to b/l legs consistent with hemosiderin deposition. Blistering and weeping noted to left leg and foot. No purulence or malodor noted at this time MSK: Pain on palpation of b/l LE left worse than right - Neurological Exam Neurological exam: Alert, Oriented x3 - Psychiatric Exam Psychiatric exam: Normal Affect, Normal Mood Results - Vital Signs Recent Vital Signs: Last Vital Signs Temp 97.9 F 10/05/18 16:00 Pulse 92 H 10/05/18 19:00 Resp 20 10/05/18 20:07 BP 159/69 H 10/05/18 17:55 Pulse Ox 98 10/05/18 19:00 - Labs Result Diagrams: 10/05/18 06:26 10/05/18 06:24 Labs: Laboratory Results - last 24 hr 10/05/18 10/05/18 10/05/18 06:24 06:26 07:42 WBC 14.0 H RBC 3.75 L Hgb 11.2 L Hct 34.5 L MCV 92.2 MCH 30.0 MCHC 32.5 L RDW 14.5 Plt Count 242 MPV 8.3 Neut % (Auto) 92.9 H Lymph % (Auto) 3.9 L Dane % (Auto) 3.1 Eos % (Auto) 0.0 Baso % (Auto) 0.1 Neut # (Auto) 12.9 H Lymph # (Auto) 0.5 L Dane # (Auto) 0.4 Eos # (Auto) 0.0 Baso # (Auto) 0.0 Neutrophils % (Manual) 89 H Lymphocytes % (Manual) 6 L Monocytes % (Manual) 5 Platelet Estimate Normal RBC Morphology Normal Sodium 142 Potassium 4.3 Chloride 105 Carbon Dioxide 30 Anion Gap 11 BUN 30 H Creatinine 0.6 L Est GFR ( Amer) > 60 Est GFR (Non-Af Amer) > 60 POC Glucose (mg/dL) 201 H Random Glucose 174 H Calcium 8.5 L Phosphorus 3.2 Magnesium 2.8 H Total Bilirubin 0.9 AST 93 H D ALT 71 Alkaline Phosphatase 68 Total Protein 6.9 Albumin 3.7 Globulin 3.2 Albumin/Globulin Ratio 1.1 10/05/18 10/05/18 11:37 16:31 WBC RBC Hgb Hct MCV MCH MCHC RDW Plt Count MPV Neut % (Auto) Lymph % (Auto) Dane % (Auto) Eos % (Auto) Baso % (Auto) Neut # (Auto) Lymph # (Auto) Dane # (Auto) Eos # (Auto) Baso # (Auto) Neutrophils % (Manual) Lymphocytes % (Manual) Monocytes % (Manual) Platelet Estimate RBC Morphology Sodium Potassium Chloride Carbon Dioxide Anion Gap BUN Creatinine Est GFR ( Amer) Est GFR (Non-Af Amer) POC Glucose (mg/dL) 183 H 194 H Random Glucose Calcium Phosphorus Magnesium Total Bilirubin AST ALT Alkaline Phosphatase Total Protein Albumin Globulin Albumin/Globulin Ratio Assessment & Plan - Assessment and Plan (Free Text) Assessment: 58M seen for b/l LE edema with blistering and weeping on right side Plan: Patient seen and evaluated with Dr. Singleton WBC 14.0 Continue abx per ID Left leg wound cx: Enterobacter Cloacae Left venous duplex: No evidence of DVT Left leg dressed with xeroform, gauze, ABD, Garry No plan for surgical intervention at this time. Podiatry will continue to follow while patient in house - Date & Time Date: 10/05/18 Time: 20:00
[2018-10-06] MEDS: Albuterol-Ipratrop 3 mg / 0.5 (3 ml) UD INH SCH ×5 (01:17→22:51)
[2018-10-06] MEDS: Clindamycin 600mg/50ml NS 600 MG/50 ML BAG IVPB SCH ×3 (02:35→18:19)
[2018-10-06] MEDS: oxyCODONE 10 mg ER Tab (oxyCONTIN) PO SCH ×3 (02:45→18:08)
[2018-10-06] MEDS: Aztreonam 2 GM in Sodium Chloride 0.9% 100 ML IVPB SCH ×3 (05:50→22:43)
[2018-10-06] MEDS: Oxycodone/Acetaminophen 5/325 mg Tab PO PRN ×3 (06:00→22:45)
--- NOTE | 2018-10-06 07:31 | CP.PCM.PN ---
Subjective - Date & Time of Evaluation Date of Evaluation: 10/05/18 Time of Evaluation: 08:20 - Subjective Subjective: Patient examined in chair, alert, little lethargic. His condition is about the same as yesterday; labored breathing, shallow respirations,congested lungs. O2 supplied via NC. Abdomen is large, distended, diminished bowel sounds. No BM s emmanuel the admission. LEs still edematous, wheeping edema and patient is unable to stand up unless max assistance was provided. Patient is continuously asking for pain meds and complains of not being able to sleep. Objective - Vital Signs/Intake and Output Vital Signs (last 24 hours): Temp Pulse Resp BP Pulse Ox 97.9 F 108 H 28 H 127/107 H 99 10/05/18 08:00 10/05/18 11:00 10/05/18 11:01 10/05/18 10:30 10/05/18 11:00 Intake and Output: 10/05/18 10/05/18 06:59 18:59 Intake Total 1000 350 Output Total 750 300 Balance 250 50 - Medications Medications: Current Medications Acetaminophen (Tylenol 650mg/20.3ml Solution Ud) 650 mg PO Q6 PRN PRN Reason: Temperature Last Admin: 10/02/18 18:26 Dose: 650 mg Albuterol/Ipratropium (Duoneb 3 Mg/0.5 Mg (3 Ml) Ud) 3 ml INH RQ6 [facility] Last Admin: 10/05/18 08:34 Dose: Not Given Apixaban (Eliquis) 5 mg PO BID [facility] Last Admin: 10/05/18 09:40 Dose: 5 mg Aspirin (Ecotrin) 81 mg PO DAILY [facility] Last Admin: 10/05/18 09:42 Dose: 81 mg Carvedilol (Coreg) 25 mg PO BID [facility] Last Admin: 10/05/18 09:42 Dose: 25 mg Dextrose (Dextrose 50% Inj) 0 ml IV STAT PRN; Protocol PRN Reason: Hypoglycemia Protocol Dextrose (Glutose 15) 0 gm PO ONCE PRN; Protocol PRN Reason: Hypoglycemia Protocol Glucagon (Glucagen Diagnostic Kit) 0 mg IM STAT PRN; Protocol PRN Reason: Hypoglycemia Protocol Dextrose (Dextrose 5% In Water 1000 Ml) 1,000 mls @ 0 mls/hr IV .Q0M PRN; Protocol PRN Reason: Hypoglycemia Protocol Clindamycin Phosphate (Cleocin 600mg/50ml Ns) 600 mg in 50 mls @ 100 mls/hr IVPB Q8H [facility]; Protocol Last Admin: 10/05/18 11:12 Dose: 100 mls/hr Insulin Human Regular (Novolin R) 0 unit SC ACHS [facility]; Protocol Last Admin: 10/05/18 07:50 Dose: 3 u Lorazepam (Ativan) 1 mg PO Q6 PRN PRN Reason: Symptoms of alcohol withdrawl Last Admin: 10/05/18 05:10 Dose: 1 mg Losartan Potassium (Cozaar) 100 mg PO DAILY [facility] Last Admin: 10/05/18 09:42 Dose: 100 mg Methylprednisolone (Solu-Medrol) 40 mg IVP Q12H [facility] Last Admin: 10/05/18 07:50 Dose: 40 mg Oxycodone HCl (Oxycontin Extended Release Tab) 10 mg PO Q8H [facility] Stop: 10/08/18 10:01 Last Admin: 10/05/18 09:40 Dose: 10 mg Oxycodone/Acetaminophen (Percocet 5/325 Mg Tab) 1 tab PO Q6H PRN PRN Reason: Pain, moderate (4-7) Stop: 10/07/18 16:30 Last Admin: 10/05/18 03:21 Dose: 1 tab Pantoprazole Sodium (Protonix Inj) 40 mg IVP DAILY [facility] Last Admin: 10/05/18 10:58 Dose: 40 mg Zolpidem Tartrate (Ambien) 5 mg PO HS PRN PRN Reason: Insomnia Last Admin: 10/02/18 01:46 Dose: 5 mg - Labs Labs: 10/05/18 06:26 10/05/18 06:24 PT 11.5 SECONDS (9.7-12.2) 10/01/18 12:26 INR 1.1 10/01/18 12:26 APTT 27 SECONDS (21-34) 10/01/18 12:26 - Constitutional Appears: In Acute Distress, Chronically Ill - Head Exam Head Exam: ATRAUMATIC, NORMAL INSPECTION, NORMOCEPHALIC - Eye Exam Eye Exam: EOMI, Normal appearance, PERRL Pupil Exam: NORMAL ACCOMODATION, PERRL - ENT Exam ENT Exam: Mucous Membranes Dry - Neck Exam Additional comments: Extended to right side - Respiratory Exam Respiratory Exam: Decreased Breath Sounds, Rhonchi, Respiratory Distress - Cardiovascular Exam Cardiovascular Exam: Tachycardia - GI/Abdominal Exam GI & Abdominal Exam: Distended, Diminished Bowel Sounds - Exam Exam: NORMAL INSPECTION - Extremities Exam Additional comments: edema, redness, molded - Back Exam Back Exam: NORMAL INSPECTION - Neurological Exam Neurological Exam: Alert, Oriented x3 Neuro motor strength exam: Left Upper Extremity: 3, Right Upper Extremity: 3, Left Lower Extremity: 2/1, Right Lower Extremity: 2/1 - Psychiatric Exam Psychiatric exam: Agitated, Anxious - Skin Skin Exam: Diaphoretic, Mottled, Normal Color, Vesicles Assessment and Plan - Assessment and Plan (Free Text) Assessment: Impression/Plan * Acute respiratory distress * Opioid dependency, most likely in opioid withdrawal * Limited mobility * Wheeping edema to LEs * Opioid induced constipation ICU management Objective - Vital Signs/Intake and Output Vital Signs (last 24 hours): Temp Pulse Resp BP Pulse Ox 98.8 F 88 28 H 143/69 99 10/06/18 04:00 10/06/18 04:00 10/06/18 05:17 10/06/18 04:00 10/06/18 04:00 Intake and Output: 10/06/18 10/06/18 06:59 18:59 Intake Total 880 Output Total 950 Balance -70 - Medications Medications: Current Medications Acetaminophen (Tylenol 650mg/20.3ml Solution Ud) 650 mg PO Q6 PRN PRN Reason: Temperature Last Admin: 10/02/18 18:26 Dose: 650 mg Albuterol/Ipratropium (Duoneb 3 Mg/0.5 Mg (3 Ml) Ud) 3 ml INH RQ6 [facility] Last Admin: 10/06/18 02:23 Dose: 3 ml Apixaban (Eliquis) 5 mg PO BID [facility] Last Admin: 10/05/18 17:54 Dose: 5 mg Aspirin (Ecotrin) 81 mg PO DAILY [facility] Last Admin: 10/05/18 09:42 Dose: 81 mg Carvedilol (Coreg) 25 mg PO BID [facility] Last Admin: 10/05/18 17:55 Dose: 25 mg Dextrose (Dextrose 50% Inj) 0 ml IV STAT PRN; Protocol PRN Reason: Hypoglycemia Protocol Dextrose (Glutose 15) 0 gm PO ONCE PRN; Protocol PRN Reason: Hypoglycemia Protocol Glucagon (Glucagen Diagnostic Kit) 0 mg IM STAT PRN; Protocol PRN Reason: Hypoglycemia Protocol Dextrose (Dextrose 5% In Water 1000 Ml) 1,000 mls @ 0 mls/hr IV .Q0M PRN; Protocol PRN Reason: Hypoglycemia Protocol Clindamycin Phosphate (Cleocin 600mg/50ml Ns) 600 mg in 50 mls @ 100 mls/hr IVPB Q8H [facility]; Protocol Last Admin: 10/06/18 02:35 Dose: 100 mls/hr Aztreonam 2 gm/ Sodium (Chloride) 100 mls @ 200 mls/hr IVPB Q8H [facility]; Protocol Last Admin: 10/06/18 05:50 Dose: 200 mls/hr Insulin Human Regular (Novolin R) 0 unit SC ACHS [facility]; Protocol Last Admin: 10/05/18 22:00 Dose: Not Given Lorazepam (Ativan) 1 mg PO Q6 PRN PRN Reason: Symptoms of alcohol withdrawl Last Admin: 10/05/18 23:15 Dose: 1 mg Losartan Potassium (Cozaar) 100 mg PO DAILY [facility] Last Admin: 10/05/18 09:42 Dose: 100 mg Methylprednisolone (Solu-Medrol) 40 mg IVP Q12H [facility] Last Admin: 10/05/18 21:00 Dose: 40 mg Oxycodone HCl (Oxycontin Extended Release Tab) 10 mg PO Q8H [facility] Stop: 10/08/18 10:01 Last Admin: 10/06/18 02:45 Dose: 10 mg Oxycodone/Acetaminophen (Percocet 5/325 Mg Tab) 1 tab PO Q6H PRN PRN Reason: Pain, moderate (4-7) Stop: 10/07/18 16:30 Last Admin: 10/06/18 06:00 Dose: 1 tab Pantoprazole Sodium (Protonix Inj) 40 mg IVP DAILY [facility] Last Admin: 10/05/18 10:58 Dose: 40 mg Zolpidem Tartrate (Ambien) 5 mg PO HS PRN PRN Reason: Insomnia Last Admin: 10/02/18 01:46 Dose: 5 mg - Labs Labs: 10/05/18 06:26 10/05/18 06:24 PT 11.5 SECONDS (9.7-12.2) 10/01/18 12:26 INR 1.1 10/01/18 12:26 APTT 27 SECONDS (21-34) 10/01/18 12:26
[2018-10-06] MEDS: (Novolin R) Insulin Human Regular 100 units/ml vial SC SCH ×4 (09:06→22:45)
[2018-10-06] MEDS: MethylPREDNISolone 40 mg Vial IVP SCH ×2 (09:16→21:00)
--- NOTE | 2018-10-06 13:03 | CP.PCM.PN ---
Subjective - Date & Time of Evaluation Date of Evaluation: 10/06/18 Time of Evaluation: 13:03 - Subjective Subjective: Podiatry Progress Note - Dr. Singleton 58 y/o male seen at bedside this morning with Dr. Singleton in ICU for painful b/l LE edema with pain, left worse than right. Patient states that his leg swelling feels a bit better today with the bandages on. He is AAO x 3 and NAD during examination. Denies any further or new pedal complaints. Denies any N/V/F/C/D/CP at present Objective - Vital Signs/Intake and Output Vital Signs (last 24 hours): Temp Pulse Resp BP Pulse Ox 98.2 F 84 24 135/58 L 97 10/06/18 12:00 10/06/18 12:00 10/06/18 12:00 10/06/18 12:00 10/06/18 12:00 Intake and Output: 10/06/18 10/06/18 06:59 18:59 Intake Total 880 Output Total 950 Balance -70 - Medications Medications: Current Medications Acetaminophen (Tylenol 650mg/20.3ml Solution Ud) 650 mg PO Q6 PRN PRN Reason: Temperature Last Admin: 10/02/18 18:26 Dose: 650 mg Albuterol/Ipratropium (Duoneb 3 Mg/0.5 Mg (3 Ml) Ud) 3 ml INH RQ6 [facility] Last Admin: 10/06/18 08:07 Dose: 3 ml Apixaban (Eliquis) 5 mg PO BID [facility] Last Admin: 10/06/18 09:16 Dose: 5 mg Aspirin (Ecotrin) 81 mg PO DAILY [facility] Last Admin: 10/06/18 09:17 Dose: 81 mg Carvedilol (Coreg) 25 mg PO BID [facility] Last Admin: 10/06/18 09:26 Dose: 25 mg Dextrose (Dextrose 50% Inj) 0 ml IV STAT PRN; Protocol PRN Reason: Hypoglycemia Protocol Dextrose (Glutose 15) 0 gm PO ONCE PRN; Protocol PRN Reason: Hypoglycemia Protocol Glucagon (Glucagen Diagnostic Kit) 0 mg IM STAT PRN; Protocol PRN Reason: Hypoglycemia Protocol Dextrose (Dextrose 5% In Water 1000 Ml) 1,000 mls @ 0 mls/hr IV .Q0M PRN; Protocol PRN Reason: Hypoglycemia Protocol Clindamycin Phosphate (Cleocin 600mg/50ml Ns) 600 mg in 50 mls @ 100 mls/hr IV PB Q8H [facility]; Protocol Last Admin: 10/06/18 11:04 Dose: 100 mls/hr Aztreonam 2 gm/ Sodium (Chloride) 100 mls @ 200 mls/hr IVPB Q8H [facility]; Protocol Last Admin: 10/06/18 05:50 Dose: 200 mls/hr Insulin Human Regular (Novolin R) 0 unit SC ACHS [facility]; Protocol Last Admin: 10/06/18 11:56 Dose: 2 u Lorazepam (Ativan) 1 mg PO Q6 PRN PRN Reason: Symptoms of alcohol withdrawl Last Admin: 10/05/18 23:15 Dose: 1 mg Losartan Potassium (Cozaar) 100 mg PO DAILY [facility] Last Admin: 10/06/18 09:17 Dose: 100 mg Methylprednisolone (Solu-Medrol) 40 mg IVP Q12H [facility] Last Admin: 10/06/18 09:16 Dose: 40 mg Oxycodone HCl (Oxycontin Extended Release Tab) 10 mg PO Q8H [facility] Stop: 10/08/18 10:01 Last Admin: 10/06/18 09:17 Dose: 10 mg Oxycodone/Acetaminophen (Percocet 5/325 Mg Tab) 1 tab PO Q6H PRN PRN Reason: Pain, moderate (4-7) Stop: 10/07/18 16:30 Last Admin: 10/06/18 12:00 Dose: 1 tab Pantoprazole Sodium (Protonix Inj) 40 mg IVP DAILY [facility] Last Admin: 10/06/18 09:18 Dose: 40 mg Zolpidem Tartrate (Ambien) 5 mg PO HS PRN PRN Reason: Insomnia Last Admin: 10/02/18 01:46 Dose: 5 mg - Labs Labs: 10/05/18 06:26 10/05/18 06:24 PT 11.5 SECONDS (9.7-12.2) 10/01/18 12:26 INR 1.1 10/01/18 12:26 APTT 27 SECONDS (21-34) 10/01/18 12:26 - Constitutional Appears: Well, Non-toxic, No Acute Distress - Extremities Exam Additional comments: LE focused exam: dressings in place at this time CFT < 3 seconds to all digits no strikethrough noted, no weeping on bandages edema to dorsum of foot shows slight improvement - Neurological Exam Neurological Exam: Alert, Awake, Oriented x3 - Psychiatric Exam Psychiatric exam: Normal Affect, Normal Mood Assessment and Plan - Assessment and Plan (Free Text) Assessment: 58 y/o male seen for bilateral lower extremity edema with blistering and weeping to left leg Plan: Patient seen and evaluated with Dr. Singleton No new labs today Continue IV abx per ID Left leg wound cx: Enterobacter Cloacae Left venous duplex: No evidence of DVT Left leg dressings in place - to apply Unna boot tomorrow for edema control No plan for surgical intervention at this time Podiatry will continue to follow while patient in house
--- NOTE | 2018-10-06 15:45 | CP.PCM.PN ---
Subjective - Date & Time of Evaluation Date of Evaluation: 10/06/18 Time of Evaluation: 11:00 - Subjective Subjective: clinically same Objective - Vital Signs/Intake and Output Vital Signs (last 24 hours): Temp Pulse Resp BP Pulse Ox 98.2 F 84 24 135/58 L 97 10/06/18 12:00 10/06/18 12:00 10/06/18 14:22 10/06/18 12:00 10/06/18 12:00 Intake and Output: 10/06/18 10/06/18 06:59 18:59 Intake Total 880 Output Total 950 Balance -70 - Medications Medications: Current Medications Acetaminophen (Tylenol 650mg/20.3ml Solution Ud) 650 mg PO Q6 PRN PRN Reason: Temperature Last Admin: 10/02/18 18:26 Dose: 650 mg Albuterol/Ipratropium (Duoneb 3 Mg/0.5 Mg (3 Ml) Ud) 3 ml INH RQ6 [facility] Last Admin: 10/06/18 13:55 Dose: Not Given Apixaban (Eliquis) 5 mg PO BID [facility] Last Admin: 10/06/18 09:16 Dose: 5 mg Aspirin (Ecotrin) 81 mg PO DAILY [facility] Last Admin: 10/06/18 09:17 Dose: 81 mg Carvedilol (Coreg) 25 mg PO BID [facility] Last Admin: 10/06/18 09:26 Dose: 25 mg Dextrose (Dextrose 50% Inj) 0 ml IV STAT PRN; Protocol PRN Reason: Hypoglycemia Protocol Dextrose (Glutose 15) 0 gm PO ONCE PRN; Protocol PRN Reason: Hypoglycemia Protocol Glucagon (Glucagen Diagnostic Kit) 0 mg IM STAT PRN; Protocol PRN Reason: Hypoglycemia Protocol Dextrose (Dextrose 5% In Water 1000 Ml) 1,000 mls @ 0 mls/hr IV .Q0M PRN; Protocol PRN Reason: Hypoglycemia Protocol Clindamycin Phosphate (Cleocin 600mg/50ml Ns) 600 mg in 50 mls @ 100 mls/hr IVPB Q8H [facility]; Protocol Last Admin: 10/06/18 11:04 Dose: 100 mls/hr Aztreonam 2 gm/ Sodium (Chloride) 100 mls @ 200 mls/hr IVPB Q8H [facility]; Protocol Last Admin: 10/06/18 13:41 Dose: 200 mls/hr Insulin Human Regular (Novolin R) 0 unit SC [facility]; Protocol Last Admin: 10/06/18 11:56 Dose: 2 u Lorazepam (Ativan) 1 mg PO Q6 PRN PRN Reason: Symptoms of alcohol withdrawl Last Admin: 10/05/18 23:15 Dose: 1 mg Losartan Potassium (Cozaar) 100 mg PO DAILY [facility] Last Admin: 10/06/18 09:17 Dose: 100 mg Methylprednisolone (Solu-Medrol) 40 mg IVP Q12H [facility] Last Admin: 10/06/18 09:16 Dose: 40 mg Oxycodone HCl (Oxycontin Extended Release Tab) 10 mg PO Q8H [facility] Stop: 10/08/18 10:01 Last Admin: 10/06/18 09:17 Dose: 10 mg Oxycodone/Acetaminophen (Percocet 5/325 Mg Tab) 1 tab PO Q6H PRN PRN Reason: Pain, moderate (4-7) Stop: 10/07/18 16:30 Last Admin: 10/06/18 12:00 Dose: 1 tab Pantoprazole Sodium (Protonix Inj) 40 mg IVP DAILY [facility] Last Admin: 10/06/18 09:18 Dose: 40 mg Zolpidem Tartrate (Ambien) 5 mg PO HS PRN PRN Reason: Insomnia Last Admin: 10/02/18 01:46 Dose: 5 mg - Labs Labs: 10/05/18 06:26 10/05/18 06:24 PT 11.5 SECONDS (9.7-12.2) 10/01/18 12:26 INR 1.1 10/01/18 12:26 APTT 27 SECONDS (21-34) 10/01/18 12:26 - Constitutional Appears: Well - Head Exam Head Exam: ATRAUMATIC, NORMAL INSPECTION, NORMOCEPHALIC - Eye Exam Eye Exam: EOMI, Normal appearance, PERRL Pupil Exam: NORMAL ACCOMODATION, PERRL - ENT Exam ENT Exam: Mucous Membranes Moist, Normal Exam - Neck Exam Neck Exam: Full ROM, Normal Inspection. absent: Lymphadenopathy - Respiratory Exam Respiratory Exam: Decreased Breath Sounds - Cardiovascular Exam Cardiovascular Exam: REGULAR RHYTHM, +S1, +S2 - GI/Abdominal Exam GI & Abdominal Exam: Soft, Diminished Bowel Sounds - Rectal Exam Rectal Exam: Deferred
[2018-10-07] MEDS: oxyCODONE 10 mg ER Tab (oxyCONTIN) PO SCH ×3 (01:50→17:12)
[2018-10-07] MEDS: Clindamycin 600mg/50ml NS 600 MG/50 ML BAG IVPB SCH ×3 (02:34→19:03)
[2018-10-07] MEDS: Oxycodone/Acetaminophen 5/325 mg Tab PO PRN ×2 (04:22→10:49)
[2018-10-07] MEDS: Aztreonam 2 GM in Sodium Chloride 0.9% 100 ML IVPB SCH (05:22)
[2018-10-07] MEDS: (Novolin R) Insulin Human Regular 100 units/ml vial SC SCH ×4 (07:56→23:36)
[2018-10-07] MEDS: MethylPREDNISolone 40 mg Vial IVP SCH ×2 (09:30→20:06)
--- NOTE | 2018-10-07 09:51 | CP.PCM.PN ---
Subjective - Date & Time of Evaluation Date of Evaluation: 10/07/18 Time of Evaluation: 09:51 - Subjective Subjective: Podiatry Progress Note - Dr. Singleton 58 y/o male seen at bedside this morning in ICU for painful bilateral lower extremity edema with pain, left worse than right. Patient states that his leg swelling overall feels ok. He has no new pedal complaints. He is AAO x 3 and NAD during examination. Denies any N/V/F/C/D/CP Objective - Vital Signs/Intake and Output Vital Signs (last 24 hours): Temp Pulse Resp BP Pulse Ox 98.8 F 89 26 H 161/80 H 97 10/07/18 00:00 10/07/18 00:00 10/07/18 00:30 10/07/18 00:00 10/07/18 00:00 Intake and Output: 10/07/18 10/07/18 06:59 18:59 Output Total 600 Balance -600 - Medications Medications: Current Medications Acetaminophen (Tylenol 650mg/20.3ml Solution Ud) 650 mg PO Q6 PRN PRN Reason: Temperature Last Admin: 10/02/18 18:26 Dose: 650 mg Apixaban (Eliquis) 5 mg PO BID [facility] Last Admin: 10/06/18 18:09 Dose: 5 mg Aspirin (Ecotrin) 81 mg PO DAILY [facility] Last Admin: 10/06/18 09:17 Dose: 81 mg Carvedilol (Coreg) 25 mg PO BID [facility] Last Admin: 10/06/18 18:08 Dose: 25 mg Dextrose (Dextrose 50% Inj) 0 ml IV STAT PRN; Protocol PRN Reason: Hypoglycemia Protocol Dextrose (Glutose 15) 0 gm PO ONCE PRN; Protocol PRN Reason: Hypoglycemia Protocol Glucagon (Glucagen Diagnostic Kit) 0 mg IM STAT PRN; Protocol PRN Reason: Hypoglycemia Protocol Clindamycin Phosphate (Cleocin 600mg/50ml Ns) 600 mg in 50 mls @ 100 mls/hr IVPB Q8H [facility]; Protocol Last Admin: 10/07/18 02:34 Dose: 100 mls/hr Aztreonam 2 gm/ Sodium (Chloride) 100 mls @ 200 mls/hr IVPB Q8H [facility]; Protocol Last Admin: 10/07/18 05:22 Dose: 200 mls/hr Insulin Human Regular (Novolin R) 0 unit SC ACHS [facility]; Protocol Last Admin: 10/07/18 07:56 Dose: Not Given Lorazepam (Ativan) 1 mg PO Q6 PRN PRN Reason: Symptoms of alcohol withdrawl Last Admin: 10/06/18 22:44 Dose: 1 mg Losartan Potassium (Cozaar) 100 mg PO DAILY [facility] Last Admin: 10/06/18 09:17 Dose: 100 mg Methylprednisolone (Solu-Medrol) 40 mg IVP Q12H [facility] Last Admin: 10/06/18 21:00 Dose: 40 mg Oxycodone HCl (Oxycontin Extended Release Tab) 10 mg PO Q8H [facility] Stop: 10/08/18 10:01 Last Admin: 10/07/18 01:50 Dose: 10 mg Oxycodone/Acetaminophen (Percocet 5/325 Mg Tab) 1 tab PO Q6H PRN PRN Reason: Pain, moderate (4-7) Stop: 10/07/18 16:30 Last Admin: 10/07/18 04:22 Dose: 1 tab Pantoprazole Sodium (Protonix Inj) 40 mg IVP DAILY [facility] Last Admin: 10/06/18 09:18 Dose: 40 mg Zolpidem Tartrate (Ambien) 5 mg PO HS PRN PRN Reason: Insomnia Last Admin: 10/02/18 01:46 Dose: 5 mg - Labs Labs: 10/05/18 06:26 10/05/18 06:24 PT 11.5 SECONDS (9.7-12.2) 10/01/18 12:26 INR 1.1 10/01/18 12:26 APTT 27 SECONDS (21-34) 10/01/18 12:26 - Constitutional Appears: Well, Non-toxic, No Acute Distress - Extremities Exam Additional comments: LE focused exam: Vasc: DP/PT pulses non-palpable secondary to B/L LE edema. CFT < 3 seconds to all digits. Skin temperature increased B/L from proximal to distal. Severe, pitting edema noted to B/L LE, left worse than right Neuro: Epicritic and protective sensation grossly intact B/L Derm: Hyperpigmentation noted to B/L legs consistent with hemosiderin deposition. Blistering and weeping noted to left leg and foot. No purulence or malodor noted at this time MSK: Pain on palpation of b/l LE, L>R - Neurological Exam Neurological Exam: Alert, Awake, Oriented x3 - Psychiatric Exam Psychiatric exam: Normal Affect, Normal Mood Assessment and Plan - Assessment and Plan (Free Text) Assessment: 58 y/o male seen for bilateral lower extremity edema with blistering and weeping to left leg Plan: Patient seen and evaluated at bedside Discussed plan with Dr. Singleton Continue IV abx per ID Left leg wound cx: Enterobacter Cloacae Left venous duplex: No evidence of DVT Left leg dressing applied with xeroform, DSD, SAULO bandage Plan to apply Unna boot tomorrow for edema control No plan for surgical intervention at this time Podiatry will continue to follow while patient in house
--- NOTE | 2018-10-07 15:08 | CP.PCM.PN ---
Subjective - Date & Time of Evaluation Date of Evaluation: 10/07/18 Time of Evaluation: 14:00 - Subjective Subjective: Patient seen and examined. Less shortness of breath and remains on high flow oxygen Patient is awake and responsive Asking for Xanax Complaining of pain in the left leg Objective - Vital Signs/Intake and Output Vital Signs (last 24 hours): Temp Pulse Resp BP Pulse Ox 98.8 F 89 26 H 161/92 H 97 10/07/18 00:00 10/07/18 10:00 10/07/18 12:10 10/07/18 11:04 10/07/18 00:00 Intake and Output: 10/07/18 10/07/18 06:59 18:59 Output Total 600 Balance -600 - Medications Medications: Current Medications Acetaminophen (Tylenol 650mg/20.3ml Solution Ud) 650 mg PO Q6 PRN PRN Reason: Temperature Last Admin: 10/02/18 18:26 Dose: 650 mg Apixaban (Eliquis) 5 mg PO BID [facility] Last Admin: 10/07/18 11:00 Dose: 5 mg Aspirin (Ecotrin) 81 mg PO DAILY [facility] Last Admin: 10/07/18 11:00 Dose: 81 mg Carvedilol (Coreg) 25 mg PO BID [facility] Last Admin: 10/07/18 11:04 Dose: 25 mg Dextrose (Dextrose 50% Inj) 0 ml IV STAT PRN; Protocol PRN Reason: Hypoglycemia Protocol Dextrose (Glutose 15) 0 gm PO ONCE PRN; Protocol PRN Reason: Hypoglycemia Protocol Glucagon (Glucagen Diagnostic Kit) 0 mg IM STAT PRN; Protocol PRN Reason: Hypoglycemia Protocol Clindamycin Phosphate (Cleocin 600mg/50ml Ns) 600 mg in 50 mls @ 100 mls/hr IVPB Q8H [facility]; Protocol Last Admin: 10/07/18 10:52 Dose: 100 mls/hr Insulin Human Regular (Novolin R) 0 unit SC ACHS [facility]; Protocol Last Admin: 10/07/18 13:06 Dose: Not Given Lorazepam (Ativan) 1 mg PO Q6 PRN PRN Reason: Symptoms of alcohol withdrawl Last Admin: 10/06/18 22:44 Dose: 1 mg Losartan Potassium (Cozaar) 100 mg PO DAILY [facility] Last Admin: 10/07/18 11:00 Dose: 100 mg Methylprednisolone (Solu-Medrol) 40 mg IVP Q12H [facility] Last Admin: 10/07/18 09:30 Dose: 40 mg Oxycodone HCl (Oxycontin Extended Release Tab) 10 mg PO Q8H [facility] Stop: 10/08/18 10:01 Last Admin: 10/07/18 11:14 Dose: 10 mg Oxycodone/Acetaminophen (Percocet 5/325 Mg Tab) 1 tab PO Q6H PRN PRN Reason: Pain, moderate (4-7) Stop: 10/07/18 16:30 Last Admin: 10/07/18 10:49 Dose: 1 tab Pantoprazole Sodium (Protonix Inj) 40 mg IVP DAILY [facility] Last Admin: 10/07/18 11:01 Dose: 40 mg Zolpidem Tartrate (Ambien) 5 mg PO HS PRN PRN Reason: Insomnia Last Admin: 10/02/18 01:46 Dose: 5 mg - Labs Labs: 10/05/18 06:26 10/05/18 06:24 PT 11.5 SECONDS (9.7-12.2) 10/01/18 12:26 INR 1.1 10/01/18 12:26 APTT 27 SECONDS (21-34) 10/01/18 12:26 - Head Exam Head Exam: ATRAUMATIC, NORMOCEPHALIC - Eye Exam Eye Exam: Normal appearance - ENT Exam ENT Exam: Mucous Membranes Moist - Neck Exam Neck Exam: Normal Inspection - Respiratory Exam Respiratory Exam: Decreased Breath Sounds, Rhonchi - Cardiovascular Exam Cardiovascular Exam: REGULAR RHYTHM Assessment and Plan (1) COPD (chronic obstructive pulmonary disease) Assessment & Plan: Nebulizer treatment IV steroids Continue antibiotics Seen by podiatry Ativan as needed Continue pain medication Discontinue high flow oxygen and follow-up ABG Status: Acute (2) Cellulitis Status: Acute (3) Polysubstance (including opioids) dependence with physiol dependence Status: Acute
[2018-10-07] MEDS ORDERED: Naloxone 0.4 mg/ml Inj (Adult) IVP ONE (16:15)
[2018-10-07] MEDS ORDERED: Naloxone 0.4 mg/ml Inj (Adult) ONE (16:18)
--- NOTE | 2018-10-07 16:26 | CP.PCM.PN ---
Subjective - Date & Time of Evaluation Date of Evaluation: 10/07/18 Time of Evaluation: 07:00 - Subjective Subjective: c/o pain LLE afebrile less SOB Objective - Vital Signs/Intake and Output Vital Signs (last 24 hours): Temp Pulse Resp BP Pulse Ox 98.8 F 89 26 H 161/92 H 97 10/07/18 00:00 10/07/18 10:00 10/07/18 12:10 10/07/18 11:04 10/07/18 00:00 Intake and Output: 10/07/18 10/07/18 06:59 18:59 Output Total 600 Balance -600 - Medications Medications: Current Medications Acetaminophen (Tylenol 650mg/20.3ml Solution Ud) 650 mg PO Q6 PRN PRN Reason: Temperature Last Admin: 10/02/18 18:26 Dose: 650 mg Albuterol/Ipratropium (Duoneb 3 Mg/0.5 Mg (3 Ml) Ud) 3 ml INH RQ6 [facility] Apixaban (Eliquis) 5 mg PO BID [facility] Last Admin: 10/07/18 11:00 Dose: 5 mg Aspirin (Ecotrin) 81 mg PO DAILY [facility] Last Admin: 10/07/18 11:00 Dose: 81 mg Carvedilol (Coreg) 25 mg PO BID [facility] Last Admin: 10/07/18 11:04 Dose: 25 mg Dextrose (Dextrose 50% Inj) 0 ml IV STAT PRN; Protocol PRN Reason: Hypoglycemia Protocol Dextrose (Glutose 15) 0 gm PO ONCE PRN; Protocol PRN Reason: Hypoglycemia Protocol Glucagon (Glucagen Diagnostic Kit) 0 mg IM STAT PRN; Protocol PRN Reason: Hypoglycemia Protocol Clindamycin Phosphate (Cleocin 600mg/50ml Ns) 600 mg in 50 mls @ 100 mls/hr IVPB Q8H [facility]; Protocol Last Admin: 10/07/18 10:52 Dose: 100 mls/hr Insulin Human Regular (Novolin R) 0 unit SC ACHS [facility]; Protocol Last Admin: 10/07/18 13:06 Dose: Not Given Lorazepam (Ativan) 1 mg PO Q6 PRN PRN Reason: Symptoms of alcohol withdrawl Last Admin: 10/07/18 15:06 Dose: 1 mg Losartan Potassium (Cozaar) 100 mg PO DAILY [facility] Last Admin: 10/07/18 11:00 Dose: 100 mg Methylprednisolone (Solu-Medrol) 40 mg IVP Q12H [facility] Last Admin: 10/07/18 09:30 Dose: 40 mg Oxycodone HCl (Oxycontin Extended Release Tab) 10 mg PO Q8H [facility] Stop: 10/08/18 10:01 Last Admin: 10/07/18 11:14 Dose: 10 mg Oxycodone/Acetaminophen (Percocet 5/325 Mg Tab) 1 tab PO Q6H PRN PRN Reason: Pain, moderate (4-7) Stop: 10/07/18 16:30 Last Admin: 10/07/18 10:49 Dose: 1 tab Pantoprazole Sodium (Protonix Inj) 40 mg IVP DAILY [facility] Last Admin: 10/07/18 11:01 Dose: 40 mg Zolpidem Tartrate (Ambien) 5 mg PO HS PRN PRN Reason: Insomnia Last Admin: 10/02/18 01:46 Dose: 5 mg - Labs Labs: 10/05/18 06:26 10/05/18 06:24 PT 11.5 SECONDS (9.7-12.2) 10/01/18 12:26 INR 1.1 10/01/18 12:26 APTT 27 SECONDS (21-34) 10/01/18 12:26 - Constitutional Appears: Non-toxic, Chronically Ill - Head Exam Head Exam: NORMOCEPHALIC - Eye Exam Eye Exam: absent: Scleral icterus - ENT Exam ENT Exam: Mucous Membranes Dry - Neck Exam Neck Exam: absent: Lymphadenopathy - Respiratory Exam Respiratory Exam: Decreased Breath Sounds - Cardiovascular Exam Cardiovascular Exam: REGULAR RHYTHM - GI/Abdominal Exam GI & Abdominal Exam: Distended, Soft - Rectal Exam Rectal Exam: Deferred - Exam Exam: NORMAL INSPECTION - Extremities Exam Extremities Exam: Pedal Edema - Back Exam Back Exam: absent: CVA tenderness (L), CVA tenderness (R) - Neurological Exam Neurological Exam: Alert, Awake Assessment and Plan (1) Alcohol abuse Status: Acute (2) COPD (chronic obstructive pulmonary disease) Status: Acute (3) Cellulitis Status: Acute (4) Dependent edema Status: Acute (5) Emphysema of lung Status: Acute (6) HTN (hypertension) Status: Acute (7) Polysubstance (including opioids) dependence with physiol dependence Status: Acute (8) Avascular necrosis of left femoral head Status: Chronic (9) Avascular necrosis of right femoral head Status: Chronic (10) Degenerative joint disease of right hip Status: Chronic - Assessment and Plan (Free Text) Assessment: improving on IV antibiotics cont Rx as per Jewel Michaels MD
--- NOTE | 2018-10-07 17:00 | CP.PCM.PN ---
Subjective - Date & Time of Evaluation Date of Evaluation: 10/07/18 Time of Evaluation: 08:45 - Subjective Subjective: clinically same Objective - Vital Signs/Intake and Output Vital Signs (last 24 hours): Temp Pulse Resp BP Pulse Ox 98.8 F 87 26 H 161/92 H 97 10/07/18 00:00 10/07/18 10:00 10/07/18 12:10 10/07/18 11:04 10/07/18 00:00 Intake and Output: 10/07/18 10/07/18 06:59 18:59 Output Total 600 Balance -600 - Medications Medications: Current Medications Acetaminophen (Tylenol 650mg/20.3ml Solution Ud) 650 mg PO Q6 PRN PRN Reason: Temperature Last Admin: 10/02/18 18:26 Dose: 650 mg Albuterol/Ipratropium (Duoneb 3 Mg/0.5 Mg (3 Ml) Ud) 3 ml INH RQ6 [facility] Apixaban (Eliquis) 5 mg PO BID [facility] Last Admin: 10/07/18 11:00 Dose: 5 mg Aspirin (Ecotrin) 81 mg PO DAILY [facility] Last Admin: 10/07/18 11:00 Dose: 81 mg Carvedilol (Coreg) 25 mg PO BID [facility] Last Admin: 10/07/18 11:04 Dose: 25 mg Dextrose (Dextrose 50% Inj) 0 ml IV STAT PRN; Protocol PRN Reason: Hypoglycemia Protocol Dextrose (Glutose 15) 0 gm PO ONCE PRN; Protocol PRN Reason: Hypoglycemia Protocol Glucagon (Glucagen Diagnostic Kit) 0 mg IM STAT PRN; Protocol PRN Reason: Hypoglycemia Protocol Clindamycin Phosphate (Cleocin 600mg/50ml Ns) 600 mg in 50 mls @ 100 mls/hr IVPB Q8H [facility]; Protocol Last Admin: 10/07/18 10:52 Dose: 100 mls/hr Insulin Human Regular (Novolin R) 0 unit SC ACHS [facility]; Protocol Last Admin: 10/07/18 13:06 Dose: Not Given Lorazepam (Ativan) 1 mg PO Q6 PRN PRN Reason: Symptoms of alcohol withdrawl Last Admin: 10/07/18 15:06 Dose: 1 mg Losartan Potassium (Cozaar) 100 mg PO DAILY [facility] Last Admin: 10/07/18 11:00 Dose: 100 mg Methylprednisolone (Solu-Medrol) 40 mg IVP Q12H [facility] Last Admin: 10/07/18 09:30 Dose: 40 mg Oxycodone HCl (Oxycontin Extended Release Tab) 10 mg PO Q8H [facility] Stop: 10/08/18 10:01 Last Admin: 10/07/18 11:14 Dose: 10 mg Pantoprazole Sodium (Protonix Inj) 40 mg IVP DAILY [facility] Last Admin: 10/07/18 11:01 Dose: 40 mg Zolpidem Tartrate (Ambien) 5 mg PO HS PRN PRN Reason: Insomnia Last Admin: 10/02/18 01:46 Dose: 5 mg - Labs Labs: 10/05/18 06:26 10/05/18 06:24 PT 11.5 SECONDS (9.7-12.2) 10/01/18 12:26 INR 1.1 10/01/18 12:26 APTT 27 SECONDS (21-34) 10/01/18 12:26 - Constitutional Appears: Well - Head Exam Head Exam: ATRAUMATIC, NORMAL INSPECTION, NORMOCEPHALIC - Eye Exam Eye Exam: EOMI, Normal appearance, PERRL Pupil Exam: NORMAL ACCOMODATION, PERRL - ENT Exam ENT Exam: Mucous Membranes Moist, Normal Exam - Neck Exam Neck Exam: Full ROM, Normal Inspection. absent: Lymphadenopathy - Respiratory Exam Respiratory Exam: Decreased Breath Sounds - Cardiovascular Exam Cardiovascular Exam: REGULAR RHYTHM, +S1, +S2 - GI/Abdominal Exam GI & Abdominal Exam: Soft, Diminished Bowel Sounds - Rectal Exam Rectal Exam: Deferred
[2018-10-07 17:26] LABS: ABG ALLEN TEST POSITIVE; ARTERIAL BLOOD GAS HCO3 33.9 mmol/L (21-28); ARTERIAL BLOOD GAS O2 SAT 98.3 % (95-98); ARTERIAL BLOOD GAS PCO2 63 mm/Hg (35-45); ARTERIAL BLOOD GAS PO2 128 mm/Hg (80-100); ARTERIAL BLOOD GAS TCO2 40.9 mmol/L (22-28)
[2018-10-07] MEDS: Albuterol-Ipratrop 3 mg / 0.5 (3 ml) UD INH SCH (19:48)
[2018-10-07] MEDS: Acetaminophen 650mg/20.3ml solution UD PO PRN (20:06)
--- NOTE | 2018-10-07 23:09 | CP.PCM.PN ---
Subjective - Date & Time of Evaluation Date of Evaluation: 10/07/18 Time of Evaluation: 15:10 - Subjective Subjective: Patient seen and evaluated Still has some dyspnea Physical Examination - Constitutional Appears: In Acute Distress, Chronically Ill - Head Exam Head Exam: ATRAUMATIC, NORMAL INSPECTION, NORMOCEPHALIC - Eye Exam Eye Exam: EOMI, Normal appearance, PERRL Pupil Exam: NORMAL ACCOMODATION, PERRL - ENT Exam ENT Exam: Mucous Membranes Dry - Neck Exam Additional comments: Extended to right side - Respiratory Exam Respiratory Exam: Decreased Breath Sounds, Rhonchi, Respiratory Distress - Cardiovascular Exam Cardiovascular Exam: Tachycardia - GI/Abdominal Exam GI & Abdominal Exam: Distended, Diminished Bowel Sounds - Exam Exam: NORMAL INSPECTION - Extremities Exam Additional comments: edema, redness, molded - Back Exam Back Exam: NORMAL INSPECTION - Neurological Exam Neurological Exam: Alert, Oriented x3 Neuro motor strength exam: Left Upper Extremity: 3, Right Upper Extremity: 3, Left Lower Extremity: 2/1, Right Lower Extremity: 2/1 - Psychiatric Exam Psychiatric exam: Agitated, Anxious - Skin Skin Exam: Diaphoretic, Mottled, Normal Color, Vesicles Assessment and Plan - Assessment and Plan (Free Text) Assessment: Impression/Plan * Acute respiratory distress * Opioid dependency, most likely in opioid withdrawal * Limited mobility * Wheeping edema to LEs * Opioid induced constipation Objective - Vital Signs/Intake and Output Vital Signs (last 24 hours): Temp Pulse Resp BP Pulse Ox 98.0 F 78 26 H 183/85 H 99 10/07/18 16:00 10/07/18 16:00 10/07/18 19:55 10/07/18 19:02 10/07/18 16:00 - Medications Medications: Current Medications Acetaminophen (Tylenol 650mg/20.3ml Solution Ud) 650 mg PO Q6 PRN PRN Reason: Temperature Last Admin: 10/07/18 20:06 Dose: 650 mg Albuterol/Ipratropium (Duoneb 3 Mg/0.5 Mg (3 Ml) Ud) 3 ml INH RQ6 [facility] Last Admin: 10/07/18 19:48 Dose: 3 ml Apixaban (Eliquis) 5 mg PO BID [facility] Last Admin: 10/07/18 19:02 Dose: 5 mg Aspirin (Ecotrin) 81 mg PO DAILY [facility] Last Admin: 10/07/18 11:00 Dose: 81 mg Carvedilol (Coreg) 25 mg PO BID [facility] Last Admin: 10/07/18 19:02 Dose: 25 mg Dextrose (Dextrose 50% Inj) 0 ml IV STAT PRN; Protocol PRN Reason: Hypoglycemia Protocol Dextrose (Glutose 15) 0 gm PO ONCE PRN; Protocol PRN Reason: Hypoglycemia Protocol Glucagon (Glucagen Diagnostic Kit) 0 mg IM STAT PRN; Protocol PRN Reason: Hypoglycemia Protocol Clindamycin Phosphate (Cleocin 600mg/50ml Ns) 600 mg in 50 mls @ 100 mls/hr IVPB Q8H [facility]; Protocol Last Admin: 10/07/18 19:03 Dose: 100 mls/hr Insulin Human Regular (Novolin R) 0 unit SC ACHS [facility]; Protocol Last Admin: 10/07/18 17:12 Dose: Not Given Lorazepam (Ativan) 1 mg PO Q6 PRN PRN Reason: Symptoms of alcohol withdrawl Last Admin: 10/07/18 15:06 Dose: 1 mg Losartan Potassium (Cozaar) 100 mg PO DAILY [facility] Last Admin: 10/07/18 11:00 Dose: 100 mg Methylprednisolone (Solu-Medrol) 40 mg IVP Q12H [facility] Last Admin: 10/07/18 20:06 Dose: 40 mg Oxycodone HCl (Oxycontin Extended Release Tab) 10 mg PO Q8H [facility] Stop: 10/08/18 10:01 Last Admin: 10/07/18 17:12 Dose: Not Given Pantoprazole Sodium (Protonix Inj) 40 mg IVP DAILY [facility] Last Admin: 10/07/18 11:01 Dose: 40 mg Zolpidem Tartrate (Ambien) 5 mg PO HS PRN PRN Reason: Insomnia Last Admin: 10/02/18 01:46 Dose: 5 mg - Labs Labs: 10/05/18 06:26 10/05/18 06:24 PT 11.5 SECONDS (9.7-12.2) 10/01/18 12:26 INR 1.1 10/01/18 12:26 APTT 27 SECONDS (21-34) 10/01/18 12:26
[2018-10-08] MEDS: oxyCODONE 10 mg ER Tab (oxyCONTIN) PO SCH ×4 (01:54→21:15)
[2018-10-08] MEDS: Clindamycin 600mg/50ml NS 600 MG/50 ML BAG IVPB SCH ×3 (03:08→18:30)
[2018-10-08] MEDS: Acetaminophen 650mg/20.3ml solution UD PO PRN (06:53)
[2018-10-08] MEDS ORDERED: Oxycodone/Acetaminophen 5/325 mg Tab PO PRN ×2 (07:07→11:27)
[2018-10-08] MEDS: Albuterol-Ipratrop 3 mg / 0.5 (3 ml) UD INH SCH ×2 (07:25→13:30)
[2018-10-08] MEDS: (Novolin R) Insulin Human Regular 100 units/ml vial SC SCH ×4 (08:30→21:37)
--- NOTE | 2018-10-08 08:35 | CP.PCM.PN ---
Subjective - Date & Time of Evaluation Date of Evaluation: 10/08/18 Time of Evaluation: 08:32 - Subjective Subjective: Podiatry Progress Note - Dr. Singleton 58 y/o male seen at bedside with attending Dr. Singleton this morning for painful bilateral lower extremity edema with pain, left worse than right. Patient states that his leg swelling overall feels ok. Reports that he has a lot of pain to the LLE and the pain appears to be getting worst. He has no new pedal complaints. He is AAO x 3 and NAD during examination. Denies any N/V/F/C/D/CP Objective - Vital Signs/Intake and Output Vital Signs (last 24 hours): Temp Pulse Resp BP Pulse Ox 98.1 F 68 20 166/80 H 100 10/08/18 07:00 10/08/18 07:00 10/08/18 07:00 10/08/18 07:00 10/08/18 07:00 - Medications Medications: Current Medications Acetaminophen (Tylenol 650mg/20.3ml Solution Ud) 650 mg PO Q6 PRN PRN Reason: Temperature Last Admin: 10/08/18 06:53 Dose: 650 mg Albuterol/Ipratropium (Duoneb 3 Mg/0.5 Mg (3 Ml) Ud) 3 ml INH RQ6 [facility] Last Admin: 10/07/18 19:48 Dose: 3 ml Apixaban (Eliquis) 5 mg PO BID [facility] Last Admin: 10/07/18 19:02 Dose: 5 mg Aspirin (Ecotrin) 81 mg PO DAILY [facility] Last Admin: 10/07/18 11:00 Dose: 81 mg Carvedilol (Coreg) 25 mg PO BID [facility] Last Admin: 10/07/18 19:02 Dose: 25 mg Dextrose (Dextrose 50% Inj) 0 ml IV STAT PRN; Protocol PRN Reason: Hypoglycemia Protocol Dextrose (Glutose 15) 0 gm PO ONCE PRN; Protocol PRN Reason: Hypoglycemia Protocol Glucagon (Glucagen Diagnostic Kit) 0 mg IM STAT PRN; Protocol PRN Reason: Hypoglycemia Protocol Clindamycin Phosphate (Cleocin 600mg/50ml Ns) 600 mg in 50 mls @ 100 mls/hr IVPB Q8H [facility]; Protocol Last Admin: 10/08/18 03:08 Dose: 100 mls/hr Insulin Human Regular (Novolin R) 0 unit SC ACHS [facility]; Protocol Last Admin: 10/07/18 23:36 Dose: Not Given Losartan Potassium (Cozaar) 100 mg PO DAILY [facility] Last Admin: 10/07/18 11:00 Dose: 100 mg Methylprednisolone (Solu-Medrol) 40 mg IVP Q12H [facility] Last Admin: 10/07/18 20:06 Dose: 40 mg Oxycodone HCl (Oxycontin Extended Release Tab) 10 mg PO Q8H [facility] Stop: 10/08/18 10:01 Last Admin: 10/08/18 01:54 Dose: 10 mg Oxycodone/Acetaminophen (Percocet 5/325 Mg Tab) 1 tab PO Q8H PRN PRN Reason: Pain, moderate (4-7) Stop: 10/11/18 07:08 Last Admin: 10/08/18 07:27 Dose: 1 tab Pantoprazole Sodium (Protonix Inj) 40 mg IVP DAILY [facility] Last Admin: 10/07/18 11:01 Dose: 40 mg Zolpidem Tartrate (Ambien) 5 mg PO HS PRN PRN Reason: Insomnia Last Admin: 10/02/18 01:46 Dose: 5 mg - Labs Labs: 10/05/18 06:26 10/05/18 06:24 PT 11.5 SECONDS (9.7-12.2) 10/01/18 12:26 INR 1.1 10/01/18 12:26 APTT 27 SECONDS (21-34) 10/01/18 12:26 - Constitutional Appears: Well, Non-toxic, No Acute Distress - Extremities Exam Additional comments: LE focused exam: Vasc: DP/PT pulses non-palpable secondary to B/L LE edema. CFT < 3 seconds to all digits. Skin temperature increased B/L from proximal to distal. Severe, pitting edema noted to B/L LE, left worse than right Neuro: Epicritic and protective sensation grossly intact B/L Derm: Hyperpigmentation noted to B/L legs consistent with hemosiderin deposition. Blistering and weeping noted to left leg and foot. No purulence or malodor noted at this time MSK: Pain on palpation of b/l LE, L>R - Neurological Exam Neurological Exam: Alert, Awake, Oriented x3 - Psychiatric Exam Psychiatric exam: Normal Affect, Normal Mood Assessment and Plan - Assessment and Plan (Free Text) Assessment: 58 y/o male seen for bilateral lower extremity edema with blistering and weeping to left leg; cellulitis vs. DVT Plan: Patient seen and evaluated at bedside with Dr. Areli GREER; present leukocytosis as per 10/05 Continue IV abx per ID Left leg wound cx: Enterobacter Cloacae Left venous duplex: No evidence of DVT Left leg dressing applied with xeroform, DSD, SAULO bandage Vascular consult - recs appreciated No plan for surgical intervention at this time Podiatry will continue to follow while patient in house
[2018-10-08] MEDS: MethylPREDNISolone 40 mg Vial IVP SCH ×2 (08:39→20:15)
--- NOTE | 2018-10-08 09:31 | CP.PCM.PN ---
<Michael Alba - Last Filed: 10/08/18 17:25> Subjective - Date & Time of Evaluation Date of Evaluation: 10/08/18 Time of Evaluation: 09:31 - Subjective Subjective: Cardiology Service: Dr. Cardenas Patient seen and examined at bedside. Per nursing, no acute events occurred overnight. Patient denies any chest pain, fevers, chills, nausea, headaches, dizziness, changes in vision, abdominal pain, or any other complaints. Objective - Vital Signs/Intake and Output Vital Signs (last 24 hours): Temp Pulse Resp BP Pulse Ox 98.1 F 68 20 166/80 H 100 10/08/18 07:00 10/08/18 07:00 10/08/18 07:00 10/08/18 07:00 10/08/18 07:00 - Medications Medications: Current Medications Acetaminophen (Tylenol 650mg/20.3ml Solution Ud) 650 mg PO Q6 PRN PRN Reason: Temperature Last Admin: 10/08/18 06:53 Dose: 650 mg Albuterol/Ipratropium (Duoneb 3 Mg/0.5 Mg (3 Ml) Ud) 3 ml INH RQ6 [facility] Last Admin: 10/07/18 19:48 Dose: 3 ml Apixaban (Eliquis) 5 mg PO BID [facility] Last Admin: 10/07/18 19:02 Dose: 5 mg Aspirin (Ecotrin) 81 mg PO DAILY [facility] Last Admin: 10/07/18 11:00 Dose: 81 mg Carvedilol (Coreg) 25 mg PO BID [facility] Last Admin: 10/07/18 19:02 Dose: 25 mg Dextrose (Dextrose 50% Inj) 0 ml IV STAT PRN; Protocol PRN Reason: Hypoglycemia Protocol Dextrose (Glutose 15) 0 gm PO ONCE PRN; Protocol PRN Reason: Hypoglycemia Protocol Glucagon (Glucagen Diagnostic Kit) 0 mg IM STAT PRN; Protocol PRN Reason: Hypoglycemia Protocol Clindamycin Phosphate (Cleocin 600mg/50ml Ns) 600 mg in 50 mls @ 100 mls/hr IVPB Q8H [facility]; Protocol Last Admin: 10/08/18 03:08 Dose: 100 mls/hr Insulin Human Regular (Novolin R) 0 unit SC ACHS [facility]; Protocol Last Admin: 10/08/18 08:30 Dose: 2 u Losartan Potassium (Cozaar) 100 mg PO DAILY [facility] Last Admin: 10/07/18 11:00 Dose: 100 mg Methylprednisolone (Solu-Medrol) 40 mg IVP Q12H [facility] Last Admin: 10/08/18 08:39 Dose: 40 mg Oxycodone HCl (Oxycontin Extended Release Tab) 10 mg PO Q8H [facility] Stop: 10/08/18 10:01 Last Admin: 10/08/18 01:54 Dose: 10 mg Oxycodone/Acetaminophen (Percocet 5/325 Mg Tab) 1 tab PO Q8H PRN PRN Reason: Pain, moderate (4-7) Stop: 10/11/18 07:08 Last Admin: 10/08/18 07:27 Dose: 1 tab Pantoprazole Sodium (Protonix Inj) 40 mg IVP DAILY [facility] Last Admin: 10/07/18 11:01 Dose: 40 mg Zolpidem Tartrate (Ambien) 5 mg PO HS PRN PRN Reason: Insomnia Last Admin: 10/02/18 01:46 Dose: 5 mg - Labs Labs: 10/05/18 06:26 10/05/18 06:24 PT 11.5 SECONDS (9.7-12.2) 10/01/18 12:26 INR 1.1 10/01/18 12:26 APTT 27 SECONDS (21-34) 10/01/18 12:26 - Head Exam Head Exam: ATRAUMATIC, NORMAL INSPECTION - Eye Exam Eye Exam: EOMI, Normal appearance, PERRL Pupil Exam: NORMAL ACCOMODATION - ENT Exam ENT Exam: Mucous Membranes Moist, Normal Oropharynx - Respiratory Exam Respiratory Exam: Clear to Ausculation Bilateral, NORMAL BREATHING PATTERN. absent: Prolonged Expiratory Phase, Respiratory Distress - Cardiovascular Exam Cardiovascular Exam: REGULAR RHYTHM, +S1, +S2 - GI/Abdominal Exam GI & Abdominal Exam: Soft, Normal Bowel Sounds. absent: Hyperactive Bowel Sounds - Extremities Exam Extremities Exam: Full ROM, Normal Inspection. absent: Pedal Edema - Back Exam Back Exam: NORMAL INSPECTION. absent: paraspinal tenderness - Neurological Exam Neurological Exam: Alert, Awake, CN II-XII Intact, Oriented x3 - Psychiatric Exam Psychiatric exam: Normal Affect, Normal Mood - Skin Skin Exam: Dry, Intact, Normal Color Assessment and Plan - Assessment and Plan (Free Text) Assessment: Patient is a 58 year old male with pmhx of COPD, Bladder CA, CHF, DM, HTN, peripheral edema, TONIO, alcohol/substancer abuse, chronic b/l hip pain was brought to the ED for shortness of breath, in ED with respiratory distress, refused bipap and intubation, on high flow O2 at this time, with left leg cellulitis, elevated lactate and wbc on ED labs. elevated temperature at 104F, on cooling blanket, give abx for possible celullitis coverage. Plan: Plan: 1. Shorntess of breath unlikely CHF. Continue to monitor and medically treat hypertension. Chest ct: No large, central pulmonary emboli. Limitations of the current examination: Nondiagnostic study beyond the lobar branches. Poor opacification of main and peripheral pulmonary arterial branches -s/p respiratory distress in the E.D. -Patient refusing Intubation and BiPAP for treatment and on HiFlow Troponin (-)x 2 CT-Angio negative for pulmonary embolus Medications: Duoneb 3ml INH rq6 quin Solu-medrol 40mg IVP Q12H [facility] 2. Hypertension Coreg 25mg PO BID [facility] Cozaar 100mg PO Daily quin 3. DM ISS Aspirin 81mg PO Daily 4.Celluitis Clindamycin 600mg IVBP Q8H [facility] 5. Insomnia Zolpidem 5 mg PO HS ppx -Protonix Plan discussed with Dr. Cardenas. Michael Alba, PGY-2 <Rafael Cardenas - Last Filed: 10/08/18 23:41> Objective - Vital Signs/Intake and Output Vital Signs (last 24 hours): Temp Pulse Resp BP Pulse Ox 98.6 F 72 20 176/81 H 99 10/08/18 15:15 10/08/18 21:16 10/08/18 21:16 10/08/18 21:16 10/08/18 21:16 Intake and Output: 10/08/18 10/09/18 18:59 06:59 Intake Total 550 200 Balance 550 200 - Medications Medications: Current Medications Acetaminophen (Tylenol 650mg/20.3ml Solution Ud) 650 mg PO Q6 PRN PRN Reason: Temperature Last Admin: 10/08/18 06:53 Dose: 650 mg Albuterol/Ipratropium (Duoneb 3 Mg/0.5 Mg (3 Ml) Ud) 3 ml INH RQ6 [facility] Last Admin: 10/08/18 13:30 Dose: 3 ml Apixaban (Eliquis) 5 mg PO BID [facility] Last Admin: 10/08/18 17:15 Dose: 5 mg Aspirin (Ecotrin) 81 mg PO DAILY [facility] Last Admin: 10/08/18 09:49 Dose: 81 mg Carvedilol (Coreg) 25 mg PO BID [facility] Last Admin: 10/08/18 17:15 Dose: 25 mg Dextrose (Dextrose 50% Inj) 0 ml IV STAT PRN; Protocol PRN Reason: Hypoglycemia Protocol Dextrose (Glutose 15) 0 gm PO ONCE PRN; Protocol PRN Reason: Hypoglycemia Protocol Glucagon (Glucagen Diagnostic Kit) 0 mg IM STAT PRN; Protocol PRN Reason: Hypoglycemia Protocol Clindamycin Phosphate (Cleocin 600mg/50ml Ns) 600 mg in 50 mls @ 100 mls/hr IVPB Q8H [facility]; Protocol Last Admin: 10/08/18 18:30 Dose: 100 mls/hr Insulin Human Regular (Novolin R) 0 unit SC ACHS [facility]; Protocol Last Admin: 10/08/18 21:37 Dose: Not Given Losartan Potassium (Cozaar) 100 mg PO DAILY [facility] Last Admin: 10/08/18 09:49 Dose: 100 mg Methylprednisolone (Solu-Medrol) 40 mg IVP Q12H [facility] Last Admin: 10/08/18 20:15 Dose: 40 mg Morphine Sulfate (Morphine) 2 mg IVP Q6H PRN PRN Reason: Breakthrough Pain Last Admin: 10/08/18 20:15 Dose: 2 mg Oxycodone HCl (Oxycontin Extended Release Tab) 10 mg PO Q8 [facility] Stop: 10/11/18 18:01 Last Admin: 10/08/18 21:15 Dose: 10 mg Oxycodone/Acetaminophen (Percocet 5/325 Mg Tab) 2 tab PO Q6H PRN PRN Reason: Pain, severe (8-10) Stop: 10/11/18 11:28 Last Admin: 10/08/18 23:31 Dose: 2 tab Pantoprazole Sodium (Protonix Inj) 40 mg IVP DAILY [facility] Last Admin: 10/08/18 09:49 Dose: 40 mg Zolpidem Tartrate (Ambien) 5 mg PO HS PRN PRN Reason: Insomnia Last Admin: 10/02/18 01:46 Dose: 5 mg - Labs Labs: 10/05/18 06:26 02/01/19 06:24 PT 11.5 SECONDS (9.7-12.2) 10/01/18 12:26 INR 1.1 10/01/18 12:26 APTT 27 SECONDS (21-34) 10/01/18 12:26 Assessment and Plan - Assessment and Plan (Free Text) Assessment: Patient seen and evaluated personally by me. Plan of care d/w the resident and as documented
--- NOTE | 2018-10-08 10:35 | CP.PCM.CON ---
History of Present Illness - History of Present Illness History of Present Illness: SURGERY CONSULT NOTE FOR DR. LARES 58M presents to hospital for respiratory issues related to COPD and CHF, surgery consulted for lower extremity pain and vascular evaluation. He states he left lower leg has been painful for the past week. He state did not notice any particular ulcerations or purulent drainage but noted redness and swelling. He denied pain in the foot, he is able to ambulate. He denies fevers, chills. PMH: DM, COPD, CHF, Bladder ca, HTN, TONIO PSH: ORIF left elbow, left knee arthroscopy, Cystoscopy Social: Hx of smoking, 1.5 pack per day Allergies: as per chart Past Patient History - Infectious Disease Hx of Infectious Diseases: None - Tetanus Immunizations Tetanus Immunization: Unknown - Past Medical History & Family History Past Medical History?: Yes - Past Social History Smoking Status: Former Smoker - CARDIAC Hx Congestive Heart Failure: Yes Hx Hypertension: Yes Hx Peripheral Edema: Yes - PULMONARY Hx Asthma: Yes Hx Chronic Obstructive Pulmonary Disease (COPD): Yes Hx Emphysema: Yes Hx Pneumonia: Yes Hx Sleep Apnea: Yes (NO C PAP) - NEUROLOGICAL Hx Neurological Disorder: No - HEENT Hx HEENT Problems: Yes - RENAL Hx Chronic Kidney Disease: Yes - ENDOCRINE/METABOLIC Hx Endocrine Disorders: Yes Hx Diabetes Mellitus Type 2: Yes - HEMATOLOGICAL/ONCOLOGICAL Hx Blood Disorders: Yes Hx Cancer: Yes (BLADDER) - INTEGUMENTARY Hx Dermatological Problems: Yes (DISCOLORED LOWER EXTREMITIES ) - MUSCULOSKELETAL/RHEUMATOLOGICAL Hx Arthritis: Yes Hx Fractures: Yes (LEFT SHOULDER ORIF LEFT ELBOW RIGHT SHOULDER) - GASTROINTESTINAL Hx Gastritis: Yes (FROM MEDS) - GENITOURINARY/GYNECOLOGICAL Hx Genitourinary Disorders: Yes Hx Bladder Cancer: Yes Hx Hematuria: Yes Other/Comment: BLADDER CANCER - PSYCHIATRIC Hx Substance Use: No - SURGICAL HISTORY Hx Surgeries: Yes Hx Open Reduction Internal Fixation: Yes (LEFT SHOULDER LEFT ELBOW REMOVAL HARDWARE) Hx Orthopedic Surgery: Yes (LEFT KNEE) Other/Comment: TURP; HX: CYSTO WITH BLADDER BX. AND FULG. - ANESTHESIA Hx Anesthesia Reactions: (DIFFICULTY TO AROUSE BUT WAS DISCHARGED) Meds Allergies/Adverse Reactions: Allergies Allergy/AdvReac Type Severity Reaction Status Date / Time cefuroxime Allergy RASH Verified 10/01/18 11:25 cephalexin Allergy RASH Verified 10/01/18 11:25 clarithromycin Allergy RASH Verified 10/01/18 11:25 levofloxacin Allergy RASH Verified 10/01/18 11:25 moxifloxacin Allergy RASH Verified 10/01/18 11:25 - Medications Medications: Current Medications Acetaminophen (Tylenol 650mg/20.3ml Solution Ud) 650 mg PO Q6 PRN PRN Reason: Temperature Last Admin: 10/08/18 06:53 Dose: 650 mg Albuterol/Ipratropium (Duoneb 3 Mg/0.5 Mg (3 Ml) Ud) 3 ml INH RQ6 [facility] Last Admin: 10/08/18 07:25 Dose: 3 ml Apixaban (Eliquis) 5 mg PO BID [facility] Last Admin: 10/08/18 09:50 Dose: 5 mg Aspirin (Ecotrin) 81 mg PO DAILY [facility] Last Admin: 10/08/18 09:49 Dose: 81 mg Carvedilol (Coreg) 25 mg PO BID [facility] Last Admin: 10/08/18 09:49 Dose: 25 mg Dextrose (Dextrose 50% Inj) 0 ml IV STAT PRN; Protocol PRN Reason: Hypoglycemia Protocol Dextrose (Glutose 15) 0 gm PO ONCE PRN; Protocol PRN Reason: Hypoglycemia Protocol Glucagon (Glucagen Diagnostic Kit) 0 mg IM STAT PRN; Protocol PRN Reason: Hypoglycemia Protocol Clindamycin Phosphate (Cleocin 600mg/50ml Ns) 600 mg in 50 mls @ 100 mls/hr IVPB Q8H [facility]; Protocol Last Admin: 10/08/18 10:00 Dose: 100 mls/hr Insulin Human Regular (Novolin R) 0 unit SC ACHS [facility]; Protocol Last Admin: 10/08/18 08:30 Dose: 2 u Losartan Potassium (Cozaar) 100 mg PO DAILY [facility] Last Admin: 10/08/18 09:49 Dose: 100 mg Methylprednisolone (Solu-Medrol) 40 mg IVP Q12H [facility] Last Admin: 10/08/18 08:39 Dose: 40 mg Oxycodone/Acetaminophen (Percocet 5/325 Mg Tab) 1 tab PO Q8H PRN PRN Reason: Pain, moderate (4-7) Stop: 10/11/18 07:08 Last Admin: 10/08/18 07:27 Dose: 1 tab Pantoprazole Sodium (Protonix Inj) 40 mg IVP DAILY [facility] Last Admin: 10/08/18 09:49 Dose: 40 mg Zolpidem Tartrate (Ambien) 5 mg PO HS PRN PRN Reason: Insomnia Last Admin: 10/02/18 01:46 Dose: 5 mg Physical Exam - Constitutional Appears: Non-toxic, No Acute Distress - Respiratory Exam Respiratory Exam: Clear to Auscultation Bilateral, NORMAL BREATHING PATTERN - Cardiovascular Exam Cardiovascular Exam: REGULAR RHYTHM, +S1, +S2 - GI/Abdominal Exam GI & Abdominal Exam: Soft. absent: Distended, Firm, Guarding, Rebound, Rigid, Tenderness - Extremities Exam Extremities exam: Positive for: pedal edema, tenderness Additional comments: left lower leg tenderness, swelling, excoriation of skin, erythema Dopplerable DP/PT bilaterally - Neurological Exam Neurological exam: Alert, Oriented x3 Results - Vital Signs Recent Vital Signs: Last Vital Signs Temp 98.1 F 10/08/18 07:00 Pulse 68 10/08/18 07:00 Resp 20 10/08/18 09:55 BP 166/80 H 10/08/18 09:49 Pulse Ox 100 10/08/18 07:00 - Labs Result Diagrams: 10/05/18 06:26 10/05/18 06:24 Labs: Laboratory Results - last 24 hr 10/07/18 10/07/18 10/07/18 12:07 16:16 17:20 Puncture Site Right radial pCO2 63 H pO2 128 H HCO3 33.9 H ABG pH 7.40 ABG Total CO2 40.9 H ABG O2 Saturation 98.3 H ABG Base Excess 11.5 H Von Test Positive ABG Potassium 4.0 A-a O2 Difference 150.0 Respiratory Index 1.2 Sodium 143.0 Chloride 108.0 H Glucose 145 H Lactate 1.1 Liter Flow 30.0 FiO2 50.0 POC Glucose (mg/dL) 129 H 158 H Arterial Blood Potassium 4.0 10/07/18 10/08/18 21:06 06:21 Puncture Site pCO2 pO2 HCO3 ABG pH ABG Total CO2 ABG O2 Saturation ABG Base Excess Von Test ABG Potassium A-a O2 Difference Respiratory Index Sodium Chloride Glucose Lactate Liter Flow FiO2 POC Glucose (mg/dL) 259 H 185 H Arterial Blood Potassium Assessment & Plan - Assessment and Plan (Free Text) Assessment: 58M with left lower leg cellulitis Plan: - continue antibiotics - Will order non invasive vascular studies - Daily wound care, SAULO bandage Further recs discuss with Dr. Celine Reveles, PGY3
--- NOTE | 2018-10-08 12:02 | CP.PCM.PN ---
Subjective - Date & Time of Evaluation Date of Evaluation: 10/08/18 Time of Evaluation: 08:00 - Subjective Subjective: less fever c/o pain in NAD Objective - Vital Signs/Intake and Output Vital Signs (last 24 hours): Temp Pulse Resp BP Pulse Ox 98.1 F 68 20 166/80 H 100 10/08/18 07:00 10/08/18 07:00 10/08/18 09:55 10/08/18 09:49 10/08/18 07:00 - Medications Medications: Current Medications Acetaminophen (Tylenol 650mg/20.3ml Solution Ud) 650 mg PO Q6 PRN PRN Reason: Temperature Last Admin: 10/08/18 06:53 Dose: 650 mg Albuterol/Ipratropium (Duoneb 3 Mg/0.5 Mg (3 Ml) Ud) 3 ml INH RQ6 [facility] Last Admin: 10/08/18 07:25 Dose: 3 ml Apixaban (Eliquis) 5 mg PO BID [facility] Last Admin: 10/08/18 09:50 Dose: 5 mg Aspirin (Ecotrin) 81 mg PO DAILY [facility] Last Admin: 10/08/18 09:49 Dose: 81 mg Carvedilol (Coreg) 25 mg PO BID [facility] Last Admin: 10/08/18 09:49 Dose: 25 mg Dextrose (Dextrose 50% Inj) 0 ml IV STAT PRN; Protocol PRN Reason: Hypoglycemia Protocol Dextrose (Glutose 15) 0 gm PO ONCE PRN; Protocol PRN Reason: Hypoglycemia Protocol Glucagon (Glucagen Diagnostic Kit) 0 mg IM STAT PRN; Protocol PRN Reason: Hypoglycemia Protocol Clindamycin Phosphate (Cleocin 600mg/50ml Ns) 600 mg in 50 mls @ 100 mls/hr IVPB Q8H [facility]; Protocol Last Admin: 10/08/18 10:00 Dose: 100 mls/hr Insulin Human Regular (Novolin R) 0 unit SC ACHS [facility]; Protocol Last Admin: 10/08/18 08:30 Dose: 2 u Losartan Potassium (Cozaar) 100 mg PO DAILY [facility] Last Admin: 10/08/18 09:49 Dose: 100 mg Methylprednisolone (Solu-Medrol) 40 mg IVP Q12H [facility] Last Admin: 10/08/18 08:39 Dose: 40 mg Oxycodone HCl (Oxycontin Extended Release Tab) 10 mg PO Q8 [facility] Stop: 10/11/18 18:01 Oxycodone/Acetaminophen (Percocet 5/325 Mg Tab) 2 tab PO Q8H PRN PRN Reason: Pain, severe (8-10) Stop: 10/11/18 11:28 Pantoprazole Sodium (Protonix Inj) 40 mg IVP DAILY [facility] Last Admin: 10/08/18 09:49 Dose: 40 mg Zolpidem Tartrate (Ambien) 5 mg PO HS PRN PRN Reason: Insomnia Last Admin: 10/02/18 01:46 Dose: 5 mg - Labs Labs: 10/05/18 06:26 10/05/18 06:24 PT 11.5 SECONDS (9.7-12.2) 10/01/18 12:26 INR 1.1 10/01/18 12:26 APTT 27 SECONDS (21-34) 10/01/18 12:26 - Constitutional Appears: Well - Head Exam Head Exam: ATRAUMATIC, NORMAL INSPECTION, NORMOCEPHALIC - Eye Exam Eye Exam: EOMI, Normal appearance, PERRL Pupil Exam: NORMAL ACCOMODATION, PERRL - ENT Exam ENT Exam: Mucous Membranes Moist, Normal Exam - Neck Exam Neck Exam: Full ROM, Normal Inspection. absent: Lymphadenopathy - Respiratory Exam Respiratory Exam: Clear to Ausculation Bilateral, NORMAL BREATHING PATTERN - Cardiovascular Exam Cardiovascular Exam: REGULAR RHYTHM, +S1, +S2. absent: Murmur - GI/Abdominal Exam GI & Abdominal Exam: Soft, Normal Bowel Sounds. absent: Tenderness - Rectal Exam Rectal Exam: NORMAL INSPECTION - Extremities Exam Extremities Exam: Full ROM, Normal Capillary Refill, Normal Inspection. absent: Joint Swelling, Pedal Edema - Back Exam Back Exam: NORMAL INSPECTION - Neurological Exam Neurological Exam: Alert, Awake, CN II-XII Intact, Normal Gait, Oriented x3 - Psychiatric Exam Psychiatric exam: Normal Affect, Normal Mood - Skin Skin Exam: Dry, Intact, Normal Color, Warm Assessment and Plan (1) Alcohol abuse Status: Acute (2) COPD (chronic obstructive pulmonary disease) Status: Acute (3) Cellulitis Status: Acute (4) Dependent edema Status: Acute (5) Emphysema of lung Status: Acute (6) HTN (hypertension) Status: Acute (7) Polysubstance (including opioids) dependence with physiol dependence Status: Acute (8) Avascular necrosis of left femoral head Status: Chronic (9) Avascular necrosis of right femoral head Status: Chronic (10) Degenerative joint disease of right hip Status: Chronic - Assessment and Plan (Free Text) Assessment: cont iv rx as ordered
--- NOTE | 2018-10-08 15:44 | CP.PCM.PN ---
Subjective - Date & Time of Evaluation Date of Evaluation: 10/08/18 Time of Evaluation: 10:00 - Subjective Subjective: Patient seen and examined Complaining of pain in the pain medication that was reduced Denies shortness of breath, denies cough, denies fever chills On high flow oxygen Patient is alert and oriented Seen by podiatry and dressing changed Objective - Vital Signs/Intake and Output Vital Signs (last 24 hours): Temp Pulse Resp BP Pulse Ox 98.1 F 68 20 166/80 H 100 10/08/18 07:00 10/08/18 07:00 10/08/18 09:55 10/08/18 09:49 10/08/18 07:00 - Medications Medications: Current Medications Acetaminophen (Tylenol 650mg/20.3ml Solution Ud) 650 mg PO Q6 PRN PRN Reason: Temperature Last Admin: 10/08/18 06:53 Dose: 650 mg Albuterol/Ipratropium (Duoneb 3 Mg/0.5 Mg (3 Ml) Ud) 3 ml INH RQ6 [facility] Last Admin: 10/08/18 13:30 Dose: 3 ml Apixaban (Eliquis) 5 mg PO BID [facility] Last Admin: 10/08/18 09:50 Dose: 5 mg Aspirin (Ecotrin) 81 mg PO DAILY [facility] Last Admin: 10/08/18 09:49 Dose: 81 mg Carvedilol (Coreg) 25 mg PO BID [facility] Last Admin: 10/08/18 09:49 Dose: 25 mg Dextrose (Dextrose 50% Inj) 0 ml IV STAT PRN; Protocol PRN Reason: Hypoglycemia Protocol Dextrose (Glutose 15) 0 gm PO ONCE PRN; Protocol PRN Reason: Hypoglycemia Protocol Glucagon (Glucagen Diagnostic Kit) 0 mg IM STAT PRN; Protocol PRN Reason: Hypoglycemia Protocol Clindamycin Phosphate (Cleocin 600mg/50ml Ns) 600 mg in 50 mls @ 100 mls/hr IVPB Q8H [facility]; Protocol Last Admin: 10/08/18 10:00 Dose: 100 mls/hr Insulin Human Regular (Novolin R) 0 unit SC ACHS [facility]; Protocol Last Admin: 10/08/18 12:30 Dose: 2 u Losartan Potassium (Cozaar) 100 mg PO DAILY [facility] Last Admin: 10/08/18 09:49 Dose: 100 mg Methylprednisolone (Solu-Medrol) 40 mg IVP Q12H [facility] Last Admin: 10/08/18 08:39 Dose: 40 mg Oxycodone HCl (Oxycontin Extended Release Tab) 10 mg PO Q8 [facility] Stop: 10/11/18 18:01 Oxycodone/Acetaminophen (Percocet 5/325 Mg Tab) 2 tab PO Q8H PRN PRN Reason: Pain, severe (8-10) Stop: 10/11/18 11:28 Pantoprazole Sodium (Protonix Inj) 40 mg IVP DAILY [facility] Last Admin: 10/08/18 09:49 Dose: 40 mg Zolpidem Tartrate (Ambien) 5 mg PO HS PRN PRN Reason: Insomnia Last Admin: 10/02/18 01:46 Dose: 5 mg - Labs Labs: 10/05/18 06:26 10/05/18 06:24 PT 11.5 SECONDS (9.7-12.2) 10/01/18 12:26 INR 1.1 10/01/18 12:26 APTT 27 SECONDS (21-34) 10/01/18 12:26 - Head Exam Head Exam: ATRAUMATIC, NORMOCEPHALIC - ENT Exam ENT Exam: Mucous Membranes Moist - Neck Exam Neck Exam: Normal Inspection - Respiratory Exam Respiratory Exam: Clear to Ausculation Bilateral - Cardiovascular Exam Cardiovascular Exam: REGULAR RHYTHM - GI/Abdominal Exam GI & Abdominal Exam: Soft, Normal Bowel Sounds Assessment and Plan (1) COPD (chronic obstructive pulmonary disease) Assessment & Plan: Patient seen and examined Discontinue high flow oxygen and try 2 L nasal cannula Continue antibiotics Pain management consult Continue nebulizer treatment and taper steroids Status: Acute (2) Cellulitis Status: Acute (3) Polysubstance (including opioids) dependence with physiol dependence Status: Acute
--- NOTE | 2018-10-08 19:02 | CP.PCM.PN ---
Subjective - Date & Time of Evaluation Date of Evaluation: 10/08/18 Time of Evaluation: 08:30 - Subjective Subjective: clinically same Objective - Vital Signs/Intake and Output Vital Signs (last 24 hours): Temp Pulse Resp BP Pulse Ox 98.6 F 68 20 170/75 H 98 10/08/18 15:15 10/08/18 16:18 10/08/18 15:15 10/08/18 17:15 10/08/18 15:15 Intake and Output: 10/08/18 10/09/18 18:59 06:59 Intake Total 550 Balance 550 - Medications Medications: Current Medications Acetaminophen (Tylenol 650mg/20.3ml Solution Ud) 650 mg PO Q6 PRN PRN Reason: Temperature Last Admin: 10/08/18 06:53 Dose: 650 mg Albuterol/Ipratropium (Duoneb 3 Mg/0.5 Mg (3 Ml) Ud) 3 ml INH RQ6 [facility] Last Admin: 10/08/18 13:30 Dose: 3 ml Apixaban (Eliquis) 5 mg PO BID [facility] Last Admin: 10/08/18 17:15 Dose: 5 mg Aspirin (Ecotrin) 81 mg PO DAILY [facility] Last Admin: 10/08/18 09:49 Dose: 81 mg Carvedilol (Coreg) 25 mg PO BID [facility] Last Admin: 10/08/18 17:15 Dose: 25 mg Dextrose (Dextrose 50% Inj) 0 ml IV STAT PRN; Protocol PRN Reason: Hypoglycemia Protocol Dextrose (Glutose 15) 0 gm PO ONCE PRN; Protocol PRN Reason: Hypoglycemia Protocol Glucagon (Glucagen Diagnostic Kit) 0 mg IM STAT PRN; Protocol PRN Reason: Hypoglycemia Protocol Clindamycin Phosphate (Cleocin 600mg/50ml Ns) 600 mg in 50 mls @ 100 mls/hr IVPB Q8H [facility]; Protocol Last Admin: 10/08/18 18:30 Dose: 100 mls/hr Insulin Human Regular (Novolin R) 0 unit SC ACHS [facility]; Protocol Last Admin: 10/08/18 17:16 Dose: 2 u Losartan Potassium (Cozaar) 100 mg PO DAILY [facility] Last Admin: 10/08/18 09:49 Dose: 100 mg Methylprednisolone (Solu-Medrol) 40 mg IVP Q12H [facility] Last Admin: 10/08/18 08:39 Dose: 40 mg Oxycodone HCl (Oxycontin Extended Release Tab) 10 mg PO Q8 [facility] Stop: 10/11/18 18:01 Last Admin: 10/08/18 17:15 Dose: 10 mg Oxycodone/Acetaminophen (Percocet 5/325 Mg Tab) 2 tab PO Q8H PRN PRN Reason: Pain, severe (8-10) Stop: 10/11/18 11:28 Last Admin: 10/08/18 15:45 Dose: 2 tab Pantoprazole Sodium (Protonix Inj) 40 mg IVP DAILY [facility] Last Admin: 10/08/18 09:49 Dose: 40 mg Zolpidem Tartrate (Ambien) 5 mg PO HS PRN PRN Reason: Insomnia Last Admin: 10/02/18 01:46 Dose: 5 mg - Labs Labs: 10/05/18 06:26 10/05/18 06:24 PT 11.5 SECONDS (9.7-12.2) 10/01/18 12:26 INR 1.1 10/01/18 12:26 APTT 27 SECONDS (21-34) 10/01/18 12:26 - Constitutional Appears: Well - Head Exam Head Exam: ATRAUMATIC, NORMAL INSPECTION, NORMOCEPHALIC - Eye Exam Eye Exam: EOMI, Normal appearance, PERRL Pupil Exam: NORMAL ACCOMODATION, PERRL - ENT Exam ENT Exam: Mucous Membranes Moist, Normal Exam - Neck Exam Neck Exam: Full ROM, Normal Inspection. absent: Lymphadenopathy - Respiratory Exam Respiratory Exam: Decreased Breath Sounds - Cardiovascular Exam Cardiovascular Exam: REGULAR RHYTHM, +S1, +S2 - GI/Abdominal Exam GI & Abdominal Exam: Soft, Diminished Bowel Sounds - Rectal Exam Rectal Exam: Deferred
--- NOTE | 2018-10-08 19:12 | CP.PCM.CON ---
<Jovanni John - Last Filed: 10/08/18 19:07> History of Present Illness - History of Present Illness History of Present Illness: Patient seen and examined. Patient complaining of pain in spine and hips, both chronic in nature for which patient is on home regimen, as well as LLE secondary to cellulitis which is acute in nature. He has a pain doctor, Dr. Moris Ribera, that he sees as an outpatient. Patient states acute pain is 8/10 in LLE and his chronic pain is "worse than at home". Patient had an episode of drowsiness/decreased responsiveness yesterday after pain medications were administered in conjunction with ativan; narcan was given and patient became more responsive. Due to this episode, primary drastically reduced his pain medication. Dr. Shah is continuing his oxycontin and percocet tonight. Mr. King reports taking Oxycontin 10 mg PO BID and Percocet 10/325 x 2 PO q6 hours at home and this keeps his pain manageable. A/P 1) Recommend restarting Mr. King on Oxycontin 10 mg PO BID and Percocet 10/325 x 2 PO q6 for basal level of morphine equivalence and adding IV push PRN for breakthrough pain. Past Patient History - Infectious Disease Hx of Infectious Diseases: None - Tetanus Immunizations Tetanus Immunization: Unknown - Past Medical History & Family History Past Medical History?: Yes - Past Social History Smoking Status: Former Smoker - CARDIAC Hx Congestive Heart Failure: Yes Hx Hypertension: Yes Hx Peripheral Edema: Yes - PULMONARY Hx Asthma: Yes Hx Chronic Obstructive Pulmonary Disease (COPD): Yes Hx Emphysema: Yes Hx Pneumonia: Yes Hx Sleep Apnea: Yes (NO C PAP) - NEUROLOGICAL Hx Neurological Disorder: No - HEENT Hx HEENT Problems: Yes - RENAL Hx Chronic Kidney Disease: Yes - ENDOCRINE/METABOLIC Hx Endocrine Disorders: Yes Hx Diabetes Mellitus Type 2: Yes - HEMATOLOGICAL/ONCOLOGICAL Hx Blood Disorders: Yes Hx Cancer: Yes (BLADDER) - INTEGUMENTARY Hx Dermatological Problems: Yes (DISCOLORED LOWER EXTREMITIES ) - MUSCULOSKELETAL/RHEUMATOLOGICAL Hx Arthritis: Yes Hx Fractures: Yes (LEFT SHOULDER ORIF LEFT ELBOW RIGHT SHOULDER) - GASTROINTESTINAL Hx Gastritis: Yes (FROM MEDS) - GENITOURINARY/GYNECOLOGICAL Hx Genitourinary Disorders: Yes Hx Bladder Cancer: Yes Hx Hematuria: Yes Other/Comment: BLADDER CANCER - PSYCHIATRIC Hx Substance Use: No - SURGICAL HISTORY Hx Surgeries: Yes Hx Open Reduction Internal Fixation: Yes (LEFT SHOULDER LEFT ELBOW REMOVAL HARDWARE) Hx Orthopedic Surgery: Yes (LEFT KNEE) Other/Comment: TURP; HX: CYSTO WITH BLADDER BX. AND FULG. - ANESTHESIA Hx Anesthesia Reactions: (DIFFICULTY TO AROUSE BUT WAS DISCHARGED) Meds Allergies/Adverse Reactions: Allergies Allergy/AdvReac Type Severity Reaction Status Date / Time cefuroxime Allergy RASH Verified 10/01/18 11:25 cephalexin Allergy RASH Verified 10/01/18 11:25 clarithromycin Allergy RASH Verified 10/01/18 11:25 levofloxacin Allergy RASH Verified 10/01/18 11:25 moxifloxacin Allergy RASH Verified 10/01/18 11:25 - Medications Medications: Current Medications Acetaminophen (Tylenol 650mg/20.3ml Solution Ud) 650 mg PO Q6 PRN PRN Reason: Temperature Last Admin: 10/08/18 06:53 Dose: 650 mg Albuterol/Ipratropium (Duoneb 3 Mg/0.5 Mg (3 Ml) Ud) 3 ml INH RQ6 [facility] Last Admin: 10/08/18 13:30 Dose: 3 ml Apixaban (Eliquis) 5 mg PO BID [facility] Last Admin: 10/08/18 17:15 Dose: 5 mg Aspirin (Ecotrin) 81 mg PO DAILY [facility] Last Admin: 10/08/18 09:49 Dose: 81 mg Carvedilol (Coreg) 25 mg PO BID [facility] Last Admin: 10/08/18 17:15 Dose: 25 mg Dextrose (Dextrose 50% Inj) 0 ml IV STAT PRN; Protocol PRN Reason: Hypoglycemia Protocol Dextrose (Glutose 15) 0 gm PO ONCE PRN; Protocol PRN Reason: Hypoglycemia Protocol Glucagon (Glucagen Diagnostic Kit) 0 mg IM STAT PRN; Protocol PRN Reason: Hypoglycemia Protocol Clindamycin Phosphate (Cleocin 600mg/50ml Ns) 600 mg in 50 mls @ 100 mls/hr IVPB Q8H [facility]; Protocol Last Admin: 10/08/18 18:30 Dose: 100 mls/hr Insulin Human Regular (Novolin R) 0 unit SC ACHS [facility]; Protocol Last Admin: 10/08/18 17:16 Dose: 2 u Losartan Potassium (Cozaar) 100 mg PO DAILY [facility] Last Admin: 10/08/18 09:49 Dose: 100 mg Methylprednisolone (Solu-Medrol) 40 mg IVP Q12H [facility] Last Admin: 10/08/18 08:39 Dose: 40 mg Oxycodone HCl (Oxycontin Extended Release Tab) 10 mg PO Q8 [facility] Stop: 10/11/18 18:01 Last Admin: 10/08/18 17:15 Dose: 10 mg Oxycodone/Acetaminophen (Percocet 5/325 Mg Tab) 2 tab PO Q8H PRN PRN Reason: Pain, severe (8-10) Stop: 10/11/18 11:28 Last Admin: 10/08/18 15:45 Dose: 2 tab Pantoprazole Sodium (Protonix Inj) 40 mg IVP DAILY [facility] Last Admin: 10/08/18 09:49 Dose: 40 mg Zolpidem Tartrate (Ambien) 5 mg PO HS PRN PRN Reason: Insomnia Last Admin: 10/02/18 01:46 Dose: 5 mg Results - Vital Signs Recent Vital Signs: Last Vital Signs Temp 98.6 F 10/08/18 15:15 Pulse 68 10/08/18 16:18 Resp 20 10/08/18 15:15 BP 170/75 H 10/08/18 17:15 Pulse Ox 98 10/08/18 15:15 - Labs Result Diagrams: 10/05/18 06:26 10/05/18 06:24 Labs: Laboratory Results - last 24 hr 10/07/18 10/08/18 10/08/18 21:06 06:21 11:22 POC Glucose (mg/dL) 259 H 185 H 198 H 10/08/18 16:53 POC Glucose (mg/dL) 181 H <Eduardo Martel S - Last Filed: 10/09/18 07:19> Meds - Medications Medications: Current Medications Acetaminophen (Tylenol 650mg/20.3ml Solution Ud) 650 mg PO Q6 PRN PRN Reason: Temperature Last Admin: 10/08/18 06:53 Dose: 650 mg Albuterol/Ipratropium (Duoneb 3 Mg/0.5 Mg (3 Ml) Ud) 3 ml INH RQ6 [facility] Last Admin: 10/09/18 01:38 Dose: 3 ml Apixaban (Eliquis) 5 mg PO BID [facility] Last Admin: 10/08/18 17:15 Dose: 5 mg Aspirin (Ecotrin) 81 mg PO DAILY [facility] Last Admin: 10/08/18 09:49 Dose: 81 mg Carvedilol (Coreg) 25 mg PO BID [facility] Last Admin: 10/08/18 17:15 Dose: 25 mg Dextrose (Dextrose 50% Inj) 0 ml IV STAT PRN; Protocol PRN Reason: Hypoglycemia Protocol Dextrose (Glutose 15) 0 gm PO ONCE PRN; Protocol PRN Reason: Hypoglycemia Protocol Glucagon (Glucagen Diagnostic Kit) 0 mg IM STAT PRN; Protocol PRN Reason: Hypoglycemia Protocol Clindamycin Phosphate (Cleocin 600mg/50ml Ns) 600 mg in 50 mls @ 100 mls/hr IVPB Q8H [facility]; Protocol Last Admin: 10/09/18 02:07 Dose: 100 mls/hr Insulin Human Regular (Novolin R) 0 unit SC ACHS [facility]; Protocol Last Admin: 10/08/18 21:37 Dose: Not Given Losartan Potassium (Cozaar) 100 mg PO DAILY [facility] Last Admin: 10/08/18 09:49 Dose: 100 mg Methylprednisolone (Solu-Medrol) 40 mg IVP Q12H [facility] Last Admin: 10/08/18 20:15 Dose: 40 mg Morphine Sulfate (Morphine) 2 mg IVP Q6H PRN PRN Reason: Breakthrough Pain Last Admin: 10/08/18 20:15 Dose: 2 mg Oxycodone HCl (Oxycontin Extended Release Tab) 10 mg PO Q8 [facility] Stop: 10/11/18 18:01 Last Admin: 10/09/18 05:37 Dose: 10 mg Oxycodone/Acetaminophen (Percocet 5/325 Mg Tab) 2 tab PO Q6H PRN PRN Reason: Pain, severe (8-10) Stop: 10/11/18 11:28 Last Admin: 10/08/18 23:31 Dose: 2 tab Pantoprazole Sodium (Protonix Inj) 40 mg IVP DAILY [facility] Last Admin: 10/08/18 09:49 Dose: 40 mg Zolpidem Tartrate (Ambien) 5 mg PO HS PRN PRN Reason: Insomnia Last Admin: 10/02/18 01:46 Dose: 5 mg Physical Exam - Constitutional Appears: No Acute Distress, Older Than Stated Age - Extremities Exam Extremities exam: Positive for: tenderness Additional comments: left mid 1/2 lower extremity erythema, tenderness to palpation. edema extending from LE to foot Right Lower extremity: tenderness to palpation, edema extending from LE to foot Results - Vital Signs Recent Vital Signs: Last Vital Signs Temp 97.9 F 10/08/18 23:33 Pulse 76 10/09/18 05:38 Resp 20 10/09/18 05:38 BP 147/78 10/09/18 05:38 Pulse Ox 100 10/09/18 05:38 - Labs Result Diagrams: 10/05/18 06:26 10/05/18 06:24 Labs: Laboratory Results - last 24 hr 10/08/18 10/08/18 10/08/18 11:22 16:53 21:22 POC Glucose (mg/dL) 198 H 181 H 156 H 10/09/18 06:09 POC Glucose (mg/dL) 241 H Assessment & Plan - Assessment and Plan (Free Text) Assessment: 58yM with acute on chronic pain, admitted for treatment of peripheral vascular disease and cellulitis of LE Plan: 1. Pt is currently stable on current rx 2. Pt can have toradol 30mg IV prn moderate pain up to five doses 3. add gabapentin 200 mg po tid 4. For breakthrough pain, patient may have morphine 4mg IV q6h prn severe, breakthrough pain 5. Physical therapy 6. Care as per primary team 7. Bowel regimen, stool softener.
[2018-10-08] MEDS: Morphine 4 MG/ML VIAL IVP PRN (20:15)
[2018-10-08] MEDS: Oxycodone/Acetaminophen 5/325 mg Tab PO PRN (23:31)
[2018-10-09] MEDS: Albuterol-Ipratrop 3 mg / 0.5 (3 ml) UD INH SCH ×4 (01:38→20:48)
[2018-10-09] MEDS: Clindamycin 600mg/50ml NS 600 MG/50 ML BAG IVPB SCH ×3 (02:07→18:04)
[2018-10-09] MEDS: oxyCODONE 10 mg ER Tab (oxyCONTIN) PO SCH ×3 (05:37→21:54)
[2018-10-09] MEDS ORDERED: Iodixanol 320 mg/ml 150 ml Bottle IV ONE (07:25)
[2018-10-09 07:34] LABS: BASO % 0.2 % (0.0-2.0); EOS % 0.1 % (0.0-4.0); HEMOGLOBIN 12.6 g/dL (12.0-18.0); LYMPH # 1.4 K/uL (1.0-4.3); LYMPH % 14.8 % (20.0-40.0); MEAN CELL VOLUME 92.7 fL (80.0-94.0); MEAN CORPUSCULAR HEMOGLOBIN 30.4 pg (27.0-31.0); MEAN CORPUSCULAR HGB CONC 32.7 g/dL (33.0-37.0); MEAN PLATELET VOLUME 7.6 fL (7.2-11.7); MONO # 0.4 K/uL (0.0-0.8); MONO % 3.8 % (0.0-10.0); NEUT # 7.7 K/uL (1.8-7.0); NEUT % 81.1 % (50.0-75.0); RBC 4.15 Mil/uL (4.40-5.90); WHITE BLOOD COUNT 9.5 K/uL (4.8-10.8)
[2018-10-09 07:58] LABS: ALB/GLOB RATIO 1.3 (1.0-2.1); ALBUMIN 3.6 g/dL (3.5-5.0); ALT/SGPT 53 U/L (21-72); AST/SGOT 38 U/L (17-59); BLOOD UREA NITROGEN 21 mg/dL (9-20); CALCIUM 8.5 mg/dl (8.6-10.4); GFR NON-AFRICAN AMERICAN > 60
--- NOTE | 2018-10-09 08:35 | CP.PCM.PN ---
Subjective - Date & Time of Evaluation Date of Evaluation: 10/09/18 Time of Evaluation: 08:34 - Subjective Subjective: Vascular Surgery Dr. Berger Pt seen and examined @bedside. No acute events overnight. afebrile. pain controlled after Pain Management consult placed by PMD. tolerating diet. Objective - Vital Signs/Intake and Output Vital Signs (last 24 hours): Temp Pulse Resp BP Pulse Ox 98 F 71 18 168/85 H 99 10/09/18 07:55 10/09/18 07:55 10/09/18 07:55 10/09/18 07:55 10/09/18 07:55 Intake and Output: 10/09/18 10/09/18 06:59 18:59 Intake Total 400 Output Total 350 Balance 50 - Medications Medications: Current Medications Acetaminophen (Tylenol 650mg/20.3ml Solution Ud) 650 mg PO Q6 PRN PRN Reason: Temperature Last Admin: 10/08/18 06:53 Dose: 650 mg Albuterol/Ipratropium (Duoneb 3 Mg/0.5 Mg (3 Ml) Ud) 3 ml INH RQ6 [facility] Last Admin: 10/09/18 01:38 Dose: 3 ml Apixaban (Eliquis) 5 mg PO BID [facility] Last Admin: 10/08/18 17:15 Dose: 5 mg Aspirin (Ecotrin) 81 mg PO DAILY [facility] Last Admin: 10/08/18 09:49 Dose: 81 mg Carvedilol (Coreg) 25 mg PO BID [facility] Last Admin: 10/08/18 17:15 Dose: 25 mg Dextrose (Dextrose 50% Inj) 0 ml IV STAT PRN; Protocol PRN Reason: Hypoglycemia Protocol Dextrose (Glutose 15) 0 gm PO ONCE PRN; Protocol PRN Reason: Hypoglycemia Protocol Glucagon (Glucagen Diagnostic Kit) 0 mg IM STAT PRN; Protocol PRN Reason: Hypoglycemia Protocol Clindamycin Phosphate (Cleocin 600mg/50ml Ns) 600 mg in 50 mls @ 100 mls/hr IVPB Q8H [facility]; Protocol Last Admin: 10/09/18 02:07 Dose: 100 mls/hr Insulin Human Regular (Novolin R) 0 unit SC ACHS [facility]; Protocol Last Admin: 10/08/18 21:37 Dose: Not Given Losartan Potassium (Cozaar) 100 mg PO DAILY [facility] Last Admin: 10/08/18 09:49 Dose: 100 mg Methylprednisolone (Solu-Medrol) 40 mg IVP Q12H [facility] Last Admin: 10/08/18 20:15 Dose: 40 mg Morphine Sulfate (Morphine) 2 mg IVP Q6H PRN PRN Reason: Breakthrough Pain Last Admin: 10/08/18 20:15 Dose: 2 mg Oxycodone HCl (Oxycontin Extended Release Tab) 10 mg PO Q8 [facility] Stop: 10/11/18 18:01 Last Admin: 10/09/18 05:37 Dose: 10 mg Oxycodone/Acetaminophen (Percocet 5/325 Mg Tab) 2 tab PO Q6H PRN PRN Reason: Pain, severe (8-10) Stop: 10/11/18 11:28 Last Admin: 10/08/18 23:31 Dose: 2 tab Pantoprazole Sodium (Protonix Inj) 40 mg IVP DAILY [facility] Last Admin: 10/08/18 09:49 Dose: 40 mg Zolpidem Tartrate (Ambien) 5 mg PO HS PRN PRN Reason: Insomnia Last Admin: 10/02/18 01:46 Dose: 5 mg - Labs Labs: 10/09/18 07:23 10/09/18 07:23 PT 11.5 SECONDS (9.7-12.2) 10/01/18 12:26 INR 1.1 10/01/18 12:26 APTT 27 SECONDS (21-34) 10/01/18 12:26 - Constitutional Appears: Non-toxic, No Acute Distress - Head Exam Head Exam: NORMAL INSPECTION - Eye Exam Eye Exam: Normal appearance - ENT Exam ENT Exam: Mucous Membranes Moist - Respiratory Exam Respiratory Exam: NORMAL BREATHING PATTERN. absent: Accessory Muscle Use, Respiratory Distress - Cardiovascular Exam Cardiovascular Exam: absent: Bradycardia, Tachycardia - GI/Abdominal Exam GI & Abdominal Exam: absent: Distended - Extremities Exam Additional comments: LLE in aneudy wrap - Neurological Exam Neurological Exam: Alert, Awake, Oriented x3 - Psychiatric Exam Psychiatric exam: Normal Affect, Normal Mood - Skin Skin Exam: Dry, Intact, Normal Color, Warm Assessment and Plan - Assessment and Plan (Free Text) Assessment: 58 y/o M w/ LLE cellulitis Plan: - dopplerable PT/DP B/L - CTA Abd Ilio-femoral runoff report: severe stenosis B/L 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 Celine Garcia DO PGY3
[2018-10-09] MEDS: (Novolin R) Insulin Human Regular 100 units/ml vial SC SCH ×4 (08:44→22:00)
[2018-10-09] MEDS: MethylPREDNISolone 40 mg Vial IVP SCH ×2 (08:45→21:00)
[2018-10-09] MEDS: Oxycodone/Acetaminophen 5/325 mg Tab PO PRN ×3 (10:22→22:51)
--- NOTE | 2018-10-09 10:29 | CT ---
Date of service: 10/09/2018 PROCEDURE: CT Angiography Abdomen, Pelvis and Lower Extremity with Contrast HISTORY: Leg pain COMPARISON: None available. TECHNIQUE: Technique: CT angiography of the abdomen, pelvis and bilateral lower extremities performed in the arterial phase of enhancement. Coronal and sagittal reformats, and well as rotating MIP images of the vessels generated at the workstation. Intravenous contrast dose: 150 milliliters Visipaque 320 Radiation dose: Total exam DLP = 3829.69 mGy-cm. This CT exam was performed using one or more of the following dose reduction techniques: Automated exposure control, adjustment of the mA and/or kV according to patient size, and/or use of iterative reconstruction technique. FINDINGS: CT ANGIOGRAPHY: ABDOMINAL AORTA:: Moderate calcific plaque throughout the abdominal aorta without stenosis or aneurysm. MAJOR AORTIC BRANCHES: Celiac [place]: Unremarkable. Superior mesenteric artery: Severe calcific plaque at the origin of the celiac artery with possible moderate stenosis. Inferior mesenteric artery: Unremarkable. Renal arteries: Calcific plaque at the origin of both right and left renal artery. Unable to exclude stenosis. PELVIC ARTERIES: Right Common Iliac: Mild calcific plaque no stenosis. Right External Iliac: Mild calcific plaque no stenosis. Right Internal Iliac: Unremarkable. Left Common Iliac: Mild calcific plaque no stenosis. Left External Iliac: Mild calcific plaque, no stenosis Left Internal Iliac: Unremarkable. RIGHT LOWER EXTREMITY ARTERIES: Right Common Femoral: Unremarkable. Right Superficial Femoral: Mild calcific plaque in the SFA without stenosis. Right Profunda Femoris: Unremarkable. Right Popliteal:Unremarkable. Right Anterior Tibial: Unremarkable. Right Tibioperoneal Trunk: Unremarkable. Right Posterior Tibial: Diffuse severe stenosis of the posterior tibial artery. Right Peroneal: Unremarkable. Right dorsalis pedis : Unremarkable. LEFT LOWER EXTREMITY ARTERIES: Left Common Femoral: Unremarkable. Left Superficial Femoral: Unremarkable. Left Profunda Femoris: Unremarkable. Left Popliteal: Unremarkable. Left Anterior Tibial: Unremarkable. Left Tibioperoneal Trunk: Unremarkable. Left Posterior Tibial: There is diffuse severe stenosis of posterior tibial artery Left Peronea: Unremarkable. Left Dorsalis pedis: Unremarkable. NON-ANGIOGRAPHIC ASPECT OF THE EXAM: LOWER THORAX: Unremarkable. LIVER: Unremarkable. No gross lesion or ductal dilatation. GALLBLADDER AND BILE DUCTS: Unremarkable. PANCREAS: Unremarkable. No gross lesion or ductal dilatation. SPLEEN: Unremarkable. ADRENALS: Unremarkable. No mass. KIDNEYS AND URETERS: Unremarkable. No hydronephrosis. No solid mass. STOMACH AND BOWEL: Evaluation without PO contrast. No obstruction. No gross mural thickening. APPENDIX: Normal appendix. PERITONEUM: Unremarkable. No free fluid. No free air. LYMPH NODES: Unremarkable. No enlarged lymph nodes. BLADDER: Unremarkable. REPRODUCTIVE: Unremarkable. BONES: No acute fracture. OTHER FINDINGS: None. IMPRESSION: CT ANGIOGRAM ABDOMEN/PELVIS: 1. Moderate calcific plaque in the abdominal aorta without significant stenosis. 2. There is mild to severe calcific plaque at the origin of the SMA possible moderate stenosis. 3. Moderate to severe calcific plaque at the origin of right and left renal arteries. Unable to exclude stenosis. 4. Pelvic arteries have no stenosis. RIGHT LOWER EXTREMITY CT ANGIOGRAM: 1. The common femoral artery, profunda femoral artery, superficial femoral artery, and popliteal artery with no significant stenosis. 2. Runoff shows a patent peroneal artery and anterior tibial artery. There is long segment diffuse moderate to severe stenosis of the posterior tibial artery. LEFT LOWER EXTREMITY CT ANGIOGRAM: 1. The common femoral artery, profunda femoral artery, superficial femoral artery, and popliteal artery with no significant stenosis. 2. Runoff shows a patent peroneal artery and anterior tibial artery. There is long segment diffuse moderate to severe stenosis of the posterior tibial artery.
--- NOTE | 2018-10-09 11:44 | CP.PCM.PN ---
Subjective - Date & Time of Evaluation Date of Evaluation: 10/09/18 Time of Evaluation: 09:00 - Subjective Subjective: c/o left leg pain no fever Objective - Vital Signs/Intake and Output Vital Signs (last 24 hours): Temp Pulse Resp BP Pulse Ox 98 F 90 18 170/80 H 99 10/09/18 07:55 10/09/18 08:15 10/09/18 07:55 10/09/18 10:22 10/09/18 07:55 Intake and Output: 10/09/18 10/09/18 06:59 18:59 Intake Total 400 Output Total 350 Balance 50 - Medications Medications: Current Medications Acetaminophen (Tylenol 650mg/20.3ml Solution Ud) 650 mg PO Q6 PRN PRN Reason: Temperature Last Admin: 10/08/18 06:53 Dose: 650 mg Albuterol/Ipratropium (Duoneb 3 Mg/0.5 Mg (3 Ml) Ud) 3 ml INH RQ6 [facility] Last Admin: 10/09/18 07:20 Dose: Not Given Apixaban (Eliquis) 5 mg PO BID [facility] Last Admin: 10/09/18 10:25 Dose: 5 mg Aspirin (Ecotrin) 81 mg PO DAILY [facility] Last Admin: 10/09/18 10:21 Dose: 81 mg Carvedilol (Coreg) 25 mg PO BID [facility] Last Admin: 10/09/18 10:22 Dose: 25 mg Dextrose (Dextrose 50% Inj) 0 ml IV STAT PRN; Protocol PRN Reason: Hypoglycemia Protocol Dextrose (Glutose 15) 0 gm PO ONCE PRN; Protocol PRN Reason: Hypoglycemia Protocol Glucagon (Glucagen Diagnostic Kit) 0 mg IM STAT PRN; Protocol PRN Reason: Hypoglycemia Protocol Clindamycin Phosphate (Cleocin 600mg/50ml Ns) 600 mg in 50 mls @ 100 mls/hr IVPB Q8H [facility]; Protocol Last Admin: 10/09/18 02:07 Dose: 100 mls/hr Insulin Human Regular (Novolin R) 0 unit SC ACHS [facility]; Protocol Last Admin: 10/09/18 08:44 Dose: 3 u Losartan Potassium (Cozaar) 100 mg PO DAILY [facility] Methylprednisolone (Solu-Medrol) 40 mg IVP Q12H [facility] Last Admin: 10/09/18 08:45 Dose: 40 mg Morphine Sulfate (Morphine) 2 mg IVP Q6H PRN PRN Reason: Breakthrough Pain Last Admin: 10/08/18 20:15 Dose: 2 mg Oxycodone HCl (Oxycontin Extended Release Tab) 10 mg PO Q8 [facility] Stop: 10/11/18 18:01 Last Admin: 10/09/18 05:37 Dose: 10 mg Oxycodone/Acetaminophen (Percocet 5/325 Mg Tab) 2 tab PO Q6H PRN PRN Reason: Pain, severe (8-10) Stop: 10/11/18 11:28 Last Admin: 10/09/18 10:22 Dose: 2 tab Pantoprazole Sodium (Protonix Inj) 40 mg IVP DAILY [facility] Last Admin: 10/09/18 10:21 Dose: 40 mg Zolpidem Tartrate (Ambien) 5 mg PO HS PRN PRN Reason: Insomnia Last Admin: 10/02/18 01:46 Dose: 5 mg - Labs Labs: 10/09/18 07:23 10/09/18 07:23 PT 11.5 SECONDS (9.7-12.2) 10/01/18 12:26 INR 1.1 10/01/18 12:26 APTT 27 SECONDS (21-34) 10/01/18 12:26 - Constitutional Appears: Non-toxic, Chronically Ill - Head Exam Head Exam: NORMOCEPHALIC - Eye Exam Eye Exam: absent: Scleral icterus - ENT Exam ENT Exam: Mucous Membranes Dry - Neck Exam Neck Exam: absent: Lymphadenopathy - Respiratory Exam Respiratory Exam: Decreased Breath Sounds - Cardiovascular Exam Cardiovascular Exam: REGULAR RHYTHM - GI/Abdominal Exam GI & Abdominal Exam: Distended - Rectal Exam Rectal Exam: Deferred - Exam Exam: NORMAL INSPECTION - Extremities Exam Extremities Exam: absent: Pedal Edema - Back Exam Back Exam: absent: CVA tenderness (L), CVA tenderness (R) Assessment and Plan (1) Alcohol abuse Status: Acute (2) COPD (chronic obstructive pulmonary disease) Status: Acute (3) Cellulitis Status: Acute (4) Dependent edema Status: Acute (5) Emphysema of lung Status: Acute (6) HTN (hypertension) Status: Acute (7) Polysubstance (including opioids) dependence with physiol dependence Status: Acute (8) Avascular necrosis of left femoral head Status: Chronic (9) Avascular necrosis of right femoral head Status: Chronic (10) Degenerative joint disease of right hip Status: Chronic - Assessment and Plan (Free Text) Assessment: cont iv rx as per Dr Jewel Michaels
--- NOTE | 2018-10-09 13:14 | CP.PCM.PN ---
<Michael Alba - Last Filed: 10/09/18 17:15> Subjective - Date & Time of Evaluation Date of Evaluation: 10/09/18 Time of Evaluation: 13:14 - Subjective Subjective: Cardiology Service: Dr. Cardenas Patient seen and examined at bedside. Per nursing, no acute events occurred overnight. Patient denies any chest pain, shortness of breath, fevers, chills, headaches, dizziness, syncopal episodes, or any other complaints. Objective - Vital Signs/Intake and Output Vital Signs (last 24 hours): Temp Pulse Resp BP Pulse Ox 98 F 90 18 170/80 H 99 10/09/18 07:55 10/09/18 08:15 10/09/18 07:55 10/09/18 10:22 10/09/18 07:55 Intake and Output: 10/09/18 10/09/18 06:59 18:59 Intake Total 400 Output Total 350 Balance 50 - Medications Medications: Current Medications Acetaminophen (Tylenol 650mg/20.3ml Solution Ud) 650 mg PO Q6 PRN PRN Reason: Temperature Last Admin: 10/08/18 06:53 Dose: 650 mg Albuterol/Ipratropium (Duoneb 3 Mg/0.5 Mg (3 Ml) Ud) 3 ml INH RQ6 [facility] Last Admin: 10/09/18 07:20 Dose: Not Given Apixaban (Eliquis) 5 mg PO BID [facility] Last Admin: 10/09/18 10:25 Dose: 5 mg Aspirin (Ecotrin) 81 mg PO DAILY [facility] Last Admin: 10/09/18 10:21 Dose: 81 mg Carvedilol (Coreg) 25 mg PO BID [facility] Last Admin: 10/09/18 10:22 Dose: 25 mg Dextrose (Dextrose 50% Inj) 0 ml IV STAT PRN; Protocol PRN Reason: Hypoglycemia Protocol Dextrose (Glutose 15) 0 gm PO ONCE PRN; Protocol PRN Reason: Hypoglycemia Protocol Glucagon (Glucagen Diagnostic Kit) 0 mg IM STAT PRN; Protocol PRN Reason: Hypoglycemia Protocol Clindamycin Phosphate (Cleocin 600mg/50ml Ns) 600 mg in 50 mls @ 100 mls/hr IVPB Q8H [facility]; Protocol Last Admin: 10/09/18 12:35 Dose: 100 mls/hr Insulin Human Regular (Novolin R) 0 unit SC ACHS [facility]; Protocol Last Admin: 10/09/18 12:36 Dose: 2 u Losartan Potassium (Cozaar) 100 mg PO DAILY [facility] Methylprednisolone (Solu-Medrol) 40 mg IVP Q12H [facility] Last Admin: 10/09/18 08:45 Dose: 40 mg Morphine Sulfate (Morphine) 2 mg IVP Q6H PRN PRN Reason: Breakthrough Pain Last Admin: 10/08/18 20:15 Dose: 2 mg Oxycodone HCl (Oxycontin Extended Release Tab) 10 mg PO Q8 [facility] Stop: 10/11/18 18:01 Last Admin: 10/09/18 05:37 Dose: 10 mg Oxycodone/Acetaminophen (Percocet 5/325 Mg Tab) 2 tab PO Q6H PRN PRN Reason: Pain, severe (8-10) Stop: 10/11/18 11:28 Last Admin: 10/09/18 10:22 Dose: 2 tab Pantoprazole Sodium (Protonix Inj) 40 mg IVP DAILY [facility] Last Admin: 10/09/18 10:21 Dose: 40 mg Zolpidem Tartrate (Ambien) 5 mg PO HS PRN PRN Reason: Insomnia Last Admin: 10/02/18 01:46 Dose: 5 mg - Labs Labs: 10/09/18 07:23 10/09/18 07:23 PT 11.5 SECONDS (9.7-12.2) 10/01/18 12:26 INR 1.1 10/01/18 12:26 APTT 27 SECONDS (21-34) 10/01/18 12:26 - Head Exam Head Exam: ATRAUMATIC, NORMAL INSPECTION - Eye Exam Eye Exam: EOMI, Normal appearance, PERRL Pupil Exam: NORMAL ACCOMODATION - ENT Exam ENT Exam: Mucous Membranes Moist, Normal Oropharynx - Respiratory Exam Respiratory Exam: Clear to Ausculation Bilateral, NORMAL BREATHING PATTERN. absent: Respiratory Distress - Cardiovascular Exam Cardiovascular Exam: REGULAR RHYTHM, +S1, +S2 - GI/Abdominal Exam GI & Abdominal Exam: Soft, Normal Bowel Sounds. absent: Hyperactive Bowel Sounds - Extremities Exam Extremities Exam: Full ROM. absent: Pedal Edema - Back Exam Back Exam: NORMAL INSPECTION. absent: paraspinal tenderness - Neurological Exam Neurological Exam: Alert, Awake, Oriented x3 - Psychiatric Exam Psychiatric exam: Normal Affect, Normal Mood. absent: Depressed - Skin Skin Exam: Dry, Intact Assessment and Plan - Assessment and Plan (Free Text) Assessment: Patient is a 58 year old male with pmhx of COPD, Bladder CA, CHF, DM, HTN, peripheral edema, TONIO, alcohol/substancer abuse, chronic b/l hip pain was brought to the ED for shortness of breath, in ED with respiratory distress, refused bipap and intubation, on high flow O2 at this time, with left leg cellulitis, elevated lactate and wbc on ED labs. elevated temperature at 104F, on cooling blanket, give abx for possible celullitis coverage. Plan: Plan: 1. Shorntess of breath unlikely CHF. Continue to monitor and medically treat hypertension. Chest ct: No large, central pulmonary emboli. Limitations of the current examination: Nondiagnostic study beyond the lobar branches. Poor opacification of main and peripheral pulmonary arterial branches -s/p respiratory distress in the E.D. -Patient refusing Intubation and BiPAP for treatment and on HiFlow Troponin (-)x 2 CT-Angio negative for pulmonary embolus Medications: Duoneb 3ml INH rq6 quin Solu-medrol 40mg IVP Q12H [facility] 2. Hypertension Coreg 25mg PO BID [facility] Cozaar 100mg PO Daily quin 3. DM ISS Aspirin 81mg PO Daily 4.Celluitis Clindamycin 600mg IVBP Q8H [facility] 5. Insomnia Zolpidem 5 mg PO HS 6.SMA moderate stenosis CT angiogram positive for calified abdominal aorta and moderate sma moderate stenosis Vascular consulted. Help appreciated. ppx -Protonix Plan discussed with Dr. Cardenas. Michael Alba, PGY-2 <Rafael Cardenas - Last Filed: 10/09/18 23:04> Objective - Vital Signs/Intake and Output Vital Signs (last 24 hours): Temp Pulse Resp BP Pulse Ox 97.8 F 71 20 148/63 99 10/09/18 15:44 10/09/18 15:44 10/09/18 15:44 10/09/18 18:03 10/09/18 15:44 - Medications Medications: Current Medications Acetaminophen (Tylenol 650mg/20.3ml Solution Ud) 650 mg PO Q6 PRN PRN Reason: Temperature Last Admin: 10/08/18 06:53 Dose: 650 mg Albuterol/Ipratropium (Duoneb 3 Mg/0.5 Mg (3 Ml) Ud) 3 ml INH RQ6 [facility] Last Admin: 10/09/18 20:48 Dose: 3 ml Apixaban (Eliquis) 5 mg PO BID [facility] Last Admin: 10/09/18 18:03 Dose: 5 mg Aspirin (Ecotrin) 81 mg PO DAILY [facility] Last Admin: 10/09/18 10:21 Dose: 81 mg Carvedilol (Coreg) 25 mg PO BID [facility] Last Admin: 10/09/18 18:03 Dose: 25 mg Dextrose (Dextrose 50% Inj) 0 ml IV STAT PRN; Protocol PRN Reason: Hypoglycemia Protocol Dextrose (Glutose 15) 0 gm PO ONCE PRN; Protocol PRN Reason: Hypoglycemia Protocol Glucagon (Glucagen Diagnostic Kit) 0 mg IM STAT PRN; Protocol PRN Reason: Hypoglycemia Protocol Clindamycin Phosphate (Cleocin 600mg/50ml Ns) 600 mg in 50 mls @ 100 mls/hr IVPB Q8H [facility]; Protocol Last Admin: 10/09/18 18:04 Dose: 100 mls/hr Insulin Human Regular (Novolin R) 0 unit SC ACHS [facility]; Protocol Last Admin: 10/09/18 22:00 Dose: Not Given Losartan Potassium (Cozaar) 100 mg PO DAILY [facility] Methylprednisolone (Solu-Medrol) 40 mg IVP Q12H [facility] Last Admin: 10/09/18 21:00 Dose: 40 mg Morphine Sulfate (Morphine) 2 mg IVP Q6H PRN PRN Reason: Breakthrough Pain Last Admin: 10/09/18 18:10 Dose: 2 mg Oxycodone HCl (Oxycontin Extended Release Tab) 10 mg PO Q8 [facility] Stop: 10/11/18 18:01 Last Admin: 10/09/18 21:54 Dose: 10 mg Oxycodone/Acetaminophen (Percocet 5/325 Mg Tab) 2 tab PO Q6H PRN PRN Reason: Pain, severe (8-10) Stop: 10/11/18 11:28 Last Admin: 10/09/18 22:51 Dose: 2 tab Pantoprazole Sodium (Protonix Inj) 40 mg IVP DAILY [facility] Last Admin: 10/09/18 10:21 Dose: 40 mg Zolpidem Tartrate (Ambien) 5 mg PO HS PRN PRN Reason: Insomnia Last Admin: 10/02/18 01:46 Dose: 5 mg - Labs Labs: 10/09/18 07:23 10/09/18 07:23 PT 11.5 SECONDS (9.7-12.2) 10/01/18 12:26 INR 1.1 10/01/18 12:26 APTT 27 SECONDS (21-34) 10/01/18 12:26 Assessment and Plan - Assessment and Plan (Free Text) Assessment: Patient seen and evaluated personally by me. Plan of care d/w the resident and as documented
--- NOTE | 2018-10-09 14:33 | CP.PCM.PN ---
Subjective - Date & Time of Evaluation Date of Evaluation: 10/09/18 Time of Evaluation: 08:45 - Subjective Subjective: clinically same Objective - Vital Signs/Intake and Output Vital Signs (last 24 hours): Temp Pulse Resp BP Pulse Ox 98 F 90 18 170/80 H 99 10/09/18 07:55 10/09/18 08:15 10/09/18 07:55 10/09/18 10:22 10/09/18 07:55 Intake and Output: 10/09/18 10/09/18 06:59 18:59 Intake Total 400 Output Total 350 Balance 50 - Medications Medications: Current Medications Acetaminophen (Tylenol 650mg/20.3ml Solution Ud) 650 mg PO Q6 PRN PRN Reason: Temperature Last Admin: 10/08/18 06:53 Dose: 650 mg Albuterol/Ipratropium (Duoneb 3 Mg/0.5 Mg (3 Ml) Ud) 3 ml INH RQ6 [facility] Last Admin: 10/09/18 07:20 Dose: Not Given Apixaban (Eliquis) 5 mg PO BID [facility] Last Admin: 10/09/18 10:25 Dose: 5 mg Aspirin (Ecotrin) 81 mg PO DAILY [facility] Last Admin: 10/09/18 10:21 Dose: 81 mg Carvedilol (Coreg) 25 mg PO BID [facility] Last Admin: 10/09/18 10:22 Dose: 25 mg Dextrose (Dextrose 50% Inj) 0 ml IV STAT PRN; Protocol PRN Reason: Hypoglycemia Protocol Dextrose (Glutose 15) 0 gm PO ONCE PRN; Protocol PRN Reason: Hypoglycemia Protocol Glucagon (Glucagen Diagnostic Kit) 0 mg IM STAT PRN; Protocol PRN Reason: Hypoglycemia Protocol Clindamycin Phosphate (Cleocin 600mg/50ml Ns) 600 mg in 50 mls @ 100 mls/hr IVPB Q8H [facility]; Protocol Last Admin: 10/09/18 12:35 Dose: 100 mls/hr Insulin Human Regular (Novolin R) 0 unit SC ACHS [facility]; Protocol Last Admin: 10/09/18 12:36 Dose: 2 u Losartan Potassium (Cozaar) 100 mg PO DAILY [facility] Methylprednisolone (Solu-Medrol) 40 mg IVP Q12H [facility] Last Admin: 10/09/18 08:45 Dose: 40 mg Morphine Sulfate (Morphine) 2 mg IVP Q6H PRN PRN Reason: Breakthrough Pain Last Admin: 10/08/18 20:15 Dose: 2 mg Oxycodone HCl (Oxycontin Extended Release Tab) 10 mg PO Q8 [facility] Stop: 10/11/18 18:01 Last Admin: 10/09/18 14:19 Dose: 10 mg Oxycodone/Acetaminophen (Percocet 5/325 Mg Tab) 2 tab PO Q6H PRN PRN Reason: Pain, severe (8-10) Stop: 10/11/18 11:28 Last Admin: 10/09/18 10:22 Dose: 2 tab Pantoprazole Sodium (Protonix Inj) 40 mg IVP DAILY [facility] Last Admin: 10/09/18 10:21 Dose: 40 mg Zolpidem Tartrate (Ambien) 5 mg PO HS PRN PRN Reason: Insomnia Last Admin: 10/02/18 01:46 Dose: 5 mg - Labs Labs: 10/09/18 07:23 10/09/18 07:23 PT 11.5 SECONDS (9.7-12.2) 10/01/18 12:26 INR 1.1 10/01/18 12:26 APTT 27 SECONDS (21-34) 10/01/18 12:26 - Constitutional Appears: Well - Head Exam Head Exam: ATRAUMATIC, NORMAL INSPECTION, NORMOCEPHALIC - Eye Exam Eye Exam: EOMI, Normal appearance, PERRL Pupil Exam: NORMAL ACCOMODATION, PERRL - ENT Exam ENT Exam: Mucous Membranes Moist, Normal Exam - Neck Exam Neck Exam: Full ROM, Normal Inspection. absent: Lymphadenopathy - Respiratory Exam Respiratory Exam: Decreased Breath Sounds - Cardiovascular Exam Cardiovascular Exam: REGULAR RHYTHM, +S1, +S2 - GI/Abdominal Exam GI & Abdominal Exam: Soft, Diminished Bowel Sounds - Rectal Exam Rectal Exam: Deferred
[2018-10-09 15:45] VITALS: RESP 20
[2018-10-09] MEDS: Morphine 4 MG/ML VIAL IVP PRN (18:10)
[2018-10-10] MEDS: Clindamycin 600mg/50ml NS 600 MG/50 ML BAG IVPB SCH ×2 (03:35→10:41)
[2018-10-10] MEDS: oxyCODONE 10 mg ER Tab (oxyCONTIN) PO SCH ×3 (06:34→21:42)
[2018-10-10] MEDS: Oxycodone/Acetaminophen 5/325 mg Tab PO PRN ×3 (06:35→19:06)
[2018-10-10] MEDS: (Novolin R) Insulin Human Regular 100 units/ml vial SC SCH ×4 (08:03→21:17)
[2018-10-10] MEDS: Albuterol-Ipratrop 3 mg / 0.5 (3 ml) UD INH SCH ×3 (08:20→20:40)
[2018-10-10 08:53] LABS: BASO % 0.1 % (0.0-2.0); EOS % 0.2 % (0.0-4.0); HEMOGLOBIN 12.1 g/dL (12.0-18.0); LYMPH # 1.6 K/uL (1.0-4.3); MEAN CELL VOLUME 91.8 fL (80.0-94.0); MEAN CORPUSCULAR HEMOGLOBIN 29.9 pg (27.0-31.0); MEAN CORPUSCULAR HGB CONC 32.6 g/dL (33.0-37.0); MEAN PLATELET VOLUME 7.2 fL (7.2-11.7); MONO # 0.6 K/uL (0.0-0.8); MONO % 5.3 % (0.0-10.0); NEUT # 8.5 K/uL (1.8-7.0); NEUT % 79.4 % (50.0-75.0); RBC 4.04 Mil/uL (4.40-5.90); RED CELL DISTRIBUTION WIDTH 14.3 % (11.5-14.5); WHITE BLOOD COUNT 10.7 K/uL (4.8-10.8)
[2018-10-10 08:58] LABS: BLOOD UREA NITROGEN 24 mg/dL (9-20); CALCIUM 8.6 mg/dl (8.6-10.4); GFR NON-AFRICAN AMERICAN > 60
[2018-10-10] MEDS: MethylPREDNISolone 40 mg Vial IVP SCH ×2 (09:02→19:09)
--- NOTE | 2018-10-10 13:25 | CP.PCM.PN ---
Subjective - Date & Time of Evaluation Date of Evaluation: 10/10/18 Time of Evaluation: 13:20 - Subjective Subjective: Podiatry Progress Note - Dr. Singleton 58 y/o male seen and evaluated for painful bilateral lower extremity edema with pain, left worse than right. Patient states that his leg swelling overall feels ok. Reports that his pain has improved and is feeling well today. He has no new pedal complaints. He is AAO x 3 and NAD during examination. Denies any N/V/F/C/D/CP Objective - Vital Signs/Intake and Output Vital Signs (last 24 hours): Temp Pulse Resp BP Pulse Ox 97.8 F 66 20 158/79 H 99 10/10/18 07:40 10/10/18 07:40 10/10/18 09:07 10/10/18 09:02 10/10/18 07:40 Intake and Output: 10/10/18 10/10/18 06:59 18:59 Output Total 200 Balance -200 - Medications Medications: Current Medications Acetaminophen (Tylenol 650mg/20.3ml Solution Ud) 650 mg PO Q6 PRN PRN Reason: Temperature Last Admin: 10/08/18 06:53 Dose: 650 mg Albuterol/Ipratropium (Duoneb 3 Mg/0.5 Mg (3 Ml) Ud) 3 ml INH RQ6 [facility] Last Admin: 10/10/18 08:20 Dose: 3 ml Apixaban (Eliquis) 5 mg PO BID [facility] Last Admin: 10/10/18 09:02 Dose: 5 mg Aspirin (Ecotrin) 81 mg PO DAILY [facility] Last Admin: 10/10/18 09:02 Dose: 81 mg Carvedilol (Coreg) 25 mg PO BID [facility] Last Admin: 10/10/18 09:02 Dose: 25 mg Dextrose (Dextrose 50% Inj) 0 ml IV STAT PRN; Protocol PRN Reason: Hypoglycemia Protocol Dextrose (Glutose 15) 0 gm PO ONCE PRN; Protocol PRN Reason: Hypoglycemia Protocol Glucagon (Glucagen Diagnostic Kit) 0 mg IM STAT PRN; Protocol PRN Reason: Hypoglycemia Protocol Clindamycin Phosphate (Cleocin 600mg/50ml Ns) 600 mg in 50 mls @ 100 mls/hr IVPB Q8H [facility]; Protocol Last Admin: 10/10/18 10:41 Dose: 100 mls/hr Insulin Human Regular (Novolin R) 0 unit SC ACHS [facility]; Protocol Last Admin: 10/10/18 11:57 Dose: 3 u Losartan Potassium (Cozaar) 100 mg PO DAILY [facility] Last Admin: 10/10/18 10:40 Dose: 100 mg Methylprednisolone (Solu-Medrol) 40 mg IVP Q12H [facility] Last Admin: 10/10/18 09:02 Dose: 40 mg Morphine Sulfate (Morphine) 2 mg IVP Q6H PRN PRN Reason: Breakthrough Pain Last Admin: 10/09/18 18:10 Dose: 2 mg Oxycodone HCl (Oxycontin Extended Release Tab) 10 mg PO Q8 [facility] Stop: 10/11/18 18:01 Last Admin: 10/10/18 06:34 Dose: 10 mg Oxycodone/Acetaminophen (Percocet 5/325 Mg Tab) 2 tab PO Q6H PRN PRN Reason: Pain, severe (8-10) Stop: 10/11/18 11:28 Last Admin: 10/10/18 13:10 Dose: 2 tab Pantoprazole Sodium (Protonix Inj) 40 mg IVP DAILY [facility] Last Admin: 10/10/18 09:02 Dose: 40 mg Zolpidem Tartrate (Ambien) 5 mg PO HS PRN PRN Reason: Insomnia Last Admin: 10/09/18 23:47 Dose: 5 mg - Labs Labs: 10/10/18 08:36 10/10/18 08:36 PT 11.5 SECONDS (9.7-12.2) 10/01/18 12:26 INR 1.1 10/01/18 12:26 APTT 27 SECONDS (21-34) 10/01/18 12:26 - Constitutional Appears: Well, Non-toxic, No Acute Distress - Extremities Exam Additional comments: LE focused exam: Vasc: DP/PT pulses non-palpable secondary to B/L LE edema. CFT < 3 seconds to all digits. Skin temperature increased B/L from proximal to distal. Severe, pitting edema noted to B/L LE, left worse than right Neuro: Epicritic and protective sensation grossly intact B/L Derm: Hyperpigmentation noted to B/L legs consistent with hemosiderin deposition. Blistering and weeping noted to left leg and foot. No purulence or malodor noted at this time MSK: Pain on palpation of b/l LE, L>R - Neurological Exam Neurological Exam: Alert, Awake, Oriented x3 - Psychiatric Exam Psychiatric exam: Normal Affect, Normal Mood Assessment and Plan - Assessment and Plan (Free Text) Assessment: 58 y/o male seen for bilateral lower extremity edema with blistering and weeping to left leg; cellulitis vs. DVT Plan: Patient seen and evaluated Discussed plan with Dr. Areli GREER; no leukocytosis Left leg wound cx: Enterobacter Cloacae Continue IV abx per ID Vascular consult - recs appreciated -CTA Abd Ilio-femoral runoff report: severe stenosis B/L SHREDDER TENDER, w/ L>R; mild- moderate stenosis SMA; calcified vessels throughout Left venous duplex: No evidence of DVT Left leg dressing applied with xeroform, DSD, SAULO bandage No plan for surgical intervention at this time Stable from podiatry standpoint Podiatry will continue to follow while patient in house
--- NOTE | 2018-10-10 15:07 | CP.PCM.PN ---
<Michael Alba - Last Filed: 10/10/18 17:08> Subjective - Date & Time of Evaluation Date of Evaluation: 10/10/18 Time of Evaluation: 15:07 - Subjective Subjective: Cardiology Service: Dr. Cardenas Patient seen and examined at bedside. Per nursing, no acute events occurred overnight. Patient denies any chest pain, shortness of breath, fevers, chills, headaches, dizziness, syncopal episodes, or any other complaints. Objective - Vital Signs/Intake and Output Vital Signs (last 24 hours): Temp Pulse Resp BP Pulse Ox 97.8 F 66 20 158/79 H 99 10/10/18 07:40 10/10/18 07:40 10/10/18 09:07 10/10/18 09:02 10/10/18 07:40 Intake and Output: 10/10/18 10/10/18 06:59 18:59 Output Total 200 Balance -200 - Medications Medications: Current Medications Acetaminophen (Tylenol 650mg/20.3ml Solution Ud) 650 mg PO Q6 PRN PRN Reason: Temperature Last Admin: 10/08/18 06:53 Dose: 650 mg Albuterol/Ipratropium (Duoneb 3 Mg/0.5 Mg (3 Ml) Ud) 3 ml INH RQ6 [facility] Last Admin: 10/10/18 08:20 Dose: 3 ml Apixaban (Eliquis) 5 mg PO BID [facility] Last Admin: 10/10/18 09:02 Dose: 5 mg Aspirin (Ecotrin) 81 mg PO DAILY [facility] Last Admin: 10/10/18 09:02 Dose: 81 mg Carvedilol (Coreg) 25 mg PO BID [facility] Last Admin: 10/10/18 09:02 Dose: 25 mg Dextrose (Dextrose 50% Inj) 0 ml IV STAT PRN; Protocol PRN Reason: Hypoglycemia Protocol Dextrose (Glutose 15) 0 gm PO ONCE PRN; Protocol PRN Reason: Hypoglycemia Protocol Glucagon (Glucagen Diagnostic Kit) 0 mg IM STAT PRN; Protocol PRN Reason: Hypoglycemia Protocol Insulin Human Regular (Novolin R) 0 unit SC [facility]; Protocol Last Admin: 10/10/18 11:57 Dose: 3 u Losartan Potassium (Cozaar) 100 mg PO DAILY [facility] Last Admin: 10/10/18 10:40 Dose: 100 mg Methylprednisolone (Solu-Medrol) 40 mg IVP Q12H [facility] Last Admin: 10/10/18 09:02 Dose: 40 mg Morphine Sulfate (Morphine) 2 mg IVP Q6H PRN PRN Reason: Breakthrough Pain Last Admin: 10/09/18 18:10 Dose: 2 mg Oxycodone HCl (Oxycontin Extended Release Tab) 10 mg PO Q8 [facility] Stop: 10/11/18 18:01 Last Admin: 10/10/18 14:51 Dose: 10 mg Oxycodone/Acetaminophen (Percocet 5/325 Mg Tab) 2 tab PO Q6H PRN PRN Reason: Pain, severe (8-10) Stop: 10/11/18 11:28 Last Admin: 10/10/18 13:10 Dose: 2 tab Pantoprazole Sodium (Protonix Inj) 40 mg IVP DAILY [facility] Last Admin: 10/10/18 09:02 Dose: 40 mg Zolpidem Tartrate (Ambien) 5 mg PO HS PRN PRN Reason: Insomnia Last Admin: 10/09/18 23:47 Dose: 5 mg - Labs Labs: 10/10/18 08:36 10/10/18 08:36 PT 11.5 SECONDS (9.7-12.2) 10/01/18 12:26 INR 1.1 10/01/18 12:26 APTT 27 SECONDS (21-34) 10/01/18 12:26 - Head Exam Head Exam: ATRAUMATIC, NORMAL INSPECTION - Eye Exam Eye Exam: EOMI, Normal appearance, PERRL Pupil Exam: NORMAL ACCOMODATION - ENT Exam ENT Exam: Mucous Membranes Moist, Normal Oropharynx - Respiratory Exam Respiratory Exam: Clear to Ausculation Bilateral, NORMAL BREATHING PATTERN. absent: Respiratory Distress - Cardiovascular Exam Cardiovascular Exam: REGULAR RHYTHM, +S1, +S2 - GI/Abdominal Exam GI & Abdominal Exam: Soft, Normal Bowel Sounds - Extremities Exam Extremities Exam: Full ROM, Normal Inspection - Back Exam Back Exam: NORMAL INSPECTION - Neurological Exam Neurological Exam: Alert, Awake - Psychiatric Exam Psychiatric exam: Normal Affect, Normal Mood - Skin Skin Exam: Dry, Normal Color Assessment and Plan - Assessment and Plan (Free Text) Assessment: Patient is a 58 year old male with pmhx of COPD, Bladder CA, CHF, DM, HTN, peripheral edema, TONIO, alcohol/substancer abuse, chronic b/l hip pain was brought to the ED for shortness of breath, in ED with respiratory distress, refused bipap and intubation, on high flow O2 at this time, with left leg cellulitis, elevated lactate and wbc on ED labs. elevated temperature at 104F, on cooling blanket, give abx for possible celullitis coverage. Plan: Plan: 1. Shorntess of breath unlikely CHF. Continue to monitor and medically treat hypertension. Chest ct: No large, central pulmonary emboli. Limitations of the current examination: Nondiagnostic study beyond the lobar branches. Poor opacification of main and peripheral pulmonary arterial branches -s/p respiratory distress in the E.D. -Patient refusing Intubation and BiPAP for treatment and on HiFlow Troponin (-)x 2 CT-Angio negative for pulmonary embolus Medications: Duoneb 3ml INH rq6 quin Solu-medrol 40mg IVP Q12H [facility] 2. Hypertension Coreg 25mg PO BID [facility] Cozaar 100mg PO Daily quin 3. DM ISS Aspirin 81mg PO Daily 5. Insomnia Zolpidem 5 mg PO HS 6.SMA moderate stenosis CT angiogram positive for calified abdominal aorta and moderate sma moderate stenosis Vascular consulted. Per note, no intervention at this time. ppx -Protonix Plan discussed with Dr. Cardenas. Michael Alba, PGY-2 <Rafael Cardenas - Last Filed: 10/10/18 22:24> Objective - Vital Signs/Intake and Output Vital Signs (last 24 hours): Temp Pulse Resp BP Pulse Ox 97.5 F L 83 20 125/67 96 10/10/18 16:27 10/10/18 16:27 10/10/18 16:27 10/10/18 18:12 10/10/18 16:27 Intake and Output: 10/10/18 10/11/18 18:59 06:59 Intake Total 410 Balance 410 - Medications Medications: Current Medications Acetaminophen (Tylenol 650mg/20.3ml Solution Ud) 650 mg PO Q6 PRN PRN Reason: Temperature Last Admin: 10/08/18 06:53 Dose: 650 mg Albuterol/Ipratropium (Duoneb 3 Mg/0.5 Mg (3 Ml) Ud) 3 ml INH RQ6 [facility] Last Admin: 10/10/18 20:40 Dose: 3 ml Apixaban (Eliquis) 5 mg PO BID [facility] Last Admin: 10/10/18 18:12 Dose: 5 mg Aspirin (Ecotrin) 81 mg PO DAILY [facility] Last Admin: 10/10/18 09:02 Dose: 81 mg Carvedilol (Coreg) 25 mg PO BID [facility] Last Admin: 10/10/18 18:12 Dose: 25 mg Dextrose (Dextrose 50% Inj) 0 ml IV STAT PRN; Protocol PRN Reason: Hypoglycemia Protocol Dextrose (Glutose 15) 0 gm PO ONCE PRN; Protocol PRN Reason: Hypoglycemia Protocol Glucagon (Glucagen Diagnostic Kit) 0 mg IM STAT PRN; Protocol PRN Reason: Hypoglycemia Protocol Insulin Human Regular (Novolin R) 0 unit SC [facility]; Protocol Last Admin: 10/10/18 21:17 Dose: Not Given Losartan Potassium (Cozaar) 100 mg PO DAILY [facility] Last Admin: 10/10/18 10:40 Dose: 100 mg Methylprednisolone (Solu-Medrol) 40 mg IVP Q12H [facility] Last Admin: 10/10/18 19:09 Dose: 40 mg Morphine Sulfate (Morphine) 2 mg IVP Q6H PRN PRN Reason: Breakthrough Pain Last Admin: 10/09/18 18:10 Dose: 2 mg Oxycodone HCl (Oxycontin Extended Release Tab) 10 mg PO Q8 [facility] Stop: 10/11/18 18:01 Last Admin: 10/10/18 21:42 Dose: 10 mg Oxycodone/Acetaminophen (Percocet 5/325 Mg Tab) 2 tab PO Q6H PRN PRN Reason: Pain, severe (8-10) Stop: 10/11/18 11:28 Last Admin: 10/10/18 19:06 Dose: 2 tab Pantoprazole Sodium (Protonix Inj) 40 mg IVP DAILY [facility] Last Admin: 10/10/18 09:02 Dose: 40 mg Zolpidem Tartrate (Ambien) 5 mg PO HS PRN PRN Reason: Insomnia Last Admin: 10/09/18 23:47 Dose: 5 mg - Labs Labs: 10/10/18 08:36 10/10/18 08:36 PT 11.5 SECONDS (9.7-12.2) 10/01/18 12:26 INR 1.1 10/01/18 12:26 APTT 27 SECONDS (21-34) 10/01/18 12:26 Assessment and Plan - Assessment and Plan (Free Text) Assessment: Patient seen and evaluated personally by me. Plan of care d/w the medical resid ent and as documented
--- NOTE | 2018-10-10 18:05 | CP.PCM.PN ---
Subjective - Date & Time of Evaluation Date of Evaluation: 10/10/18 Time of Evaluation: 17:20 - Subjective Subjective: Patient seen and examined Sitting comfortably in no distress Saturation 94% on 3 L nasal cannula Patient is alert oriented x3 Breathing much improved Objective - Vital Signs/Intake and Output Vital Signs (last 24 hours): Temp Pulse Resp BP Pulse Ox 97.5 F L 83 20 125/67 96 10/10/18 16:27 10/10/18 16:27 10/10/18 16:27 10/10/18 16:27 10/10/18 16:27 Intake and Output: 10/10/18 10/10/18 06:59 18:59 Intake Total 410 Output Total 200 Balance -200 410 - Medications Medications: Current Medications Acetaminophen (Tylenol 650mg/20.3ml Solution Ud) 650 mg PO Q6 PRN PRN Reason: Temperature Last Admin: 10/08/18 06:53 Dose: 650 mg Albuterol/Ipratropium (Duoneb 3 Mg/0.5 Mg (3 Ml) Ud) 3 ml INH RQ6 [facility] Last Admin: 10/10/18 13:40 Dose: 3 ml Apixaban (Eliquis) 5 mg PO BID [facility] Last Admin: 10/10/18 09:02 Dose: 5 mg Aspirin (Ecotrin) 81 mg PO DAILY [facility] Last Admin: 10/10/18 09:02 Dose: 81 mg Carvedilol (Coreg) 25 mg PO BID [facility] Last Admin: 10/10/18 09:02 Dose: 25 mg Dextrose (Dextrose 50% Inj) 0 ml IV STAT PRN; Protocol PRN Reason: Hypoglycemia Protocol Dextrose (Glutose 15) 0 gm PO ONCE PRN; Protocol PRN Reason: Hypoglycemia Protocol Glucagon (Glucagen Diagnostic Kit) 0 mg IM STAT PRN; Protocol PRN Reason: Hypoglycemia Protocol Insulin Human Regular (Novolin R) 0 unit SC ACHS [facility]; Protocol Last Admin: 10/10/18 17:30 Dose: 3 u Losartan Potassium (Cozaar) 100 mg PO DAILY [facility] Last Admin: 10/10/18 10:40 Dose: 100 mg Methylprednisolone (Solu-Medrol) 40 mg IVP Q12H [facility] Last Admin: 10/10/18 09:02 Dose: 40 mg Morphine Sulfate (Morphine) 2 mg IVP Q6H PRN PRN Reason: Breakthrough Pain Last Admin: 10/09/18 18:10 Dose: 2 mg Oxycodone HCl (Oxycontin Extended Release Tab) 10 mg PO Q8 [facility] Stop: 10/11/18 18:01 Last Admin: 10/10/18 14:51 Dose: 10 mg Oxycodone/Acetaminophen (Percocet 5/325 Mg Tab) 2 tab PO Q6H PRN PRN Reason: Pain, severe (8-10) Stop: 10/11/18 11:28 Last Admin: 10/10/18 13:10 Dose: 2 tab Pantoprazole Sodium (Protonix Inj) 40 mg IVP DAILY [facility] Last Admin: 10/10/18 09:02 Dose: 40 mg Zolpidem Tartrate (Ambien) 5 mg PO HS PRN PRN Reason: Insomnia Last Admin: 10/09/18 23:47 Dose: 5 mg - Labs Labs: 10/10/18 08:36 10/10/18 08:36 PT 11.5 SECONDS (9.7-12.2) 10/01/18 12:26 INR 1.1 10/01/18 12:26 APTT 27 SECONDS (21-34) 10/01/18 12:26 - Head Exam Head Exam: ATRAUMATIC, NORMOCEPHALIC - ENT Exam ENT Exam: Mucous Membranes Moist - Neck Exam Neck Exam: Normal Inspection - Respiratory Exam Respiratory Exam: Clear to Ausculation Bilateral - Cardiovascular Exam Cardiovascular Exam: REGULAR RHYTHM Assessment and Plan (1) COPD (chronic obstructive pulmonary disease) Assessment & Plan: Continue nebulizer treatment Continue antibiotics Patient is off high flow oxygen ABG room air before discharge Status: Acute (2) Cellulitis Status: Acute (3) Polysubstance (including opioids) dependence with physiol dependence Status: Acute
--- NOTE | 2018-10-10 19:24 | CP.PCM.PN ---
Subjective - Date & Time of Evaluation Date of Evaluation: 10/10/18 Time of Evaluation: 09:00 - Subjective Subjective: clinically same Objective - Vital Signs/Intake and Output Vital Signs (last 24 hours): Temp Pulse Resp BP Pulse Ox 97.5 F L 83 20 125/67 96 10/10/18 16:27 10/10/18 16:27 10/10/18 16:27 10/10/18 18:12 10/10/18 16:27 Intake and Output: 10/10/18 10/11/18 18:59 06:59 Intake Total 410 Balance 410 - Medications Medications: Current Medications Acetaminophen (Tylenol 650mg/20.3ml Solution Ud) 650 mg PO Q6 PRN PRN Reason: Temperature Last Admin: 10/08/18 06:53 Dose: 650 mg Albuterol/Ipratropium (Duoneb 3 Mg/0.5 Mg (3 Ml) Ud) 3 ml INH RQ6 [facility] Last Admin: 10/10/18 13:40 Dose: 3 ml Apixaban (Eliquis) 5 mg PO BID [facility] Last Admin: 10/10/18 18:12 Dose: 5 mg Aspirin (Ecotrin) 81 mg PO DAILY [facility] Last Admin: 10/10/18 09:02 Dose: 81 mg Carvedilol (Coreg) 25 mg PO BID [facility] Last Admin: 10/10/18 18:12 Dose: 25 mg Dextrose (Dextrose 50% Inj) 0 ml IV STAT PRN; Protocol PRN Reason: Hypoglycemia Protocol Dextrose (Glutose 15) 0 gm PO ONCE PRN; Protocol PRN Reason: Hypoglycemia Protocol Glucagon (Glucagen Diagnostic Kit) 0 mg IM STAT PRN; Protocol PRN Reason: Hypoglycemia Protocol Insulin Human Regular (Novolin R) 0 unit SC [facility]; Protocol Last Admin: 10/10/18 17:30 Dose: 3 u Losartan Potassium (Cozaar) 100 mg PO DAILY [facility] Last Admin: 10/10/18 10:40 Dose: 100 mg Methylprednisolone (Solu-Medrol) 40 mg IVP Q12H [facility] Last Admin: 10/10/18 19:09 Dose: 40 mg Morphine Sulfate (Morphine) 2 mg IVP Q6H PRN PRN Reason: Breakthrough Pain Last Admin: 10/09/18 18:10 Dose: 2 mg Oxycodone HCl (Oxycontin Extended Release Tab) 10 mg PO Q8 [facility] Stop: 10/11/18 18:01 Last Admin: 10/10/18 14:51 Dose: 10 mg Oxycodone/Acetaminophen (Percocet 5/325 Mg Tab) 2 tab PO Q6H PRN PRN Reason: Pain, severe (8-10) Stop: 10/11/18 11:28 Last Admin: 10/10/18 19:06 Dose: 2 tab Pantoprazole Sodium (Protonix Inj) 40 mg IVP DAILY [facility] Last Admin: 10/10/18 09:02 Dose: 40 mg Zolpidem Tartrate (Ambien) 5 mg PO HS PRN PRN Reason: Insomnia Last Admin: 10/09/18 23:47 Dose: 5 mg - Labs Labs: 10/10/18 08:36 10/10/18 08:36 PT 11.5 SECONDS (9.7-12.2) 10/01/18 12:26 INR 1.1 10/01/18 12:26 APTT 27 SECONDS (21-34) 10/01/18 12:26 - Constitutional Appears: Well - Head Exam Head Exam: ATRAUMATIC, NORMAL INSPECTION, NORMOCEPHALIC - Eye Exam Eye Exam: EOMI, Normal appearance, PERRL Pupil Exam: NORMAL ACCOMODATION, PERRL - ENT Exam ENT Exam: Mucous Membranes Moist, Normal Exam - Neck Exam Neck Exam: Full ROM, Normal Inspection. absent: Lymphadenopathy - Respiratory Exam Respiratory Exam: Decreased Breath Sounds - Cardiovascular Exam Cardiovascular Exam: REGULAR RHYTHM, +S1, +S2 - GI/Abdominal Exam GI & Abdominal Exam: Soft, Diminished Bowel Sounds - Rectal Exam Rectal Exam: Deferred
[2018-10-11] MEDS: Oxycodone/Acetaminophen 5/325 mg Tab PO PRN ×2 (01:06→08:58)
[2018-10-11] MEDS: Morphine 4 MG/ML VIAL IVP PRN (03:00)
[2018-10-11] MEDS: oxyCODONE 10 mg ER Tab (oxyCONTIN) PO SCH ×2 (06:38→14:25)
[2018-10-11] MEDS: (Novolin R) Insulin Human Regular 100 units/ml vial SC SCH ×2 (07:56→13:13)
[2018-10-11 08:05] VITALS: TEMP 97.8; O2SAT 98
[2018-10-11] MEDS: Albuterol-Ipratrop 3 mg / 0.5 (3 ml) UD INH SCH ×2 (08:40→13:37)
[2018-10-11] MEDS: MethylPREDNISolone 40 mg Vial IVP SCH (08:57)
[2018-10-11 11:31] VITALS: BP 171/99
--- NOTE | 2018-10-11 12:33 | CP.PCM.PN ---
Subjective - Date & Time of Evaluation Date of Evaluation: 10/11/18 Time of Evaluation: 12:31 - Subjective Subjective: Podiatry Progress Note - Dr. Singleton 58 y/o male seen and evaluated sitting in chair for painful bilateral lower extremity edema with pain, left worse than right. Reports that his pain has improved and is feeling well today. He has no new pedal complaints. He is AAO x 3 and NAD during examination. Denies any N/V/F/C/D/CP. Feeling better overall Objective - Vital Signs/Intake and Output Vital Signs (last 24 hours): Temp Pulse Resp BP Pulse Ox 97.8 F 68 20 171/99 H 98 10/11/18 08:04 10/11/18 08:04 10/11/18 08:30 10/11/18 11:29 10/11/18 08:04 - Medications Medications: Current Medications Acetaminophen (Tylenol 650mg/20.3ml Solution Ud) 650 mg PO Q6 PRN PRN Reason: Temperature Last Admin: 10/08/18 06:53 Dose: 650 mg Albuterol/Ipratropium (Duoneb 3 Mg/0.5 Mg (3 Ml) Ud) 3 ml INH RQ6 [facility] Last Admin: 10/11/18 08:40 Dose: 3 ml Apixaban (Eliquis) 5 mg PO BID [facility] Last Admin: 10/11/18 11:29 Dose: 5 mg Aspirin (Ecotrin) 81 mg PO DAILY [facility] Last Admin: 10/11/18 11:29 Dose: 81 mg Carvedilol (Coreg) 25 mg PO BID [facility] Last Admin: 10/11/18 11:29 Dose: 25 mg Dextrose (Dextrose 50% Inj) 0 ml IV STAT PRN; Protocol PRN Reason: Hypoglycemia Protocol Dextrose (Glutose 15) 0 gm PO ONCE PRN; Protocol PRN Reason: Hypoglycemia Protocol Glucagon (Glucagen Diagnostic Kit) 0 mg IM STAT PRN; Protocol PRN Reason: Hypoglycemia Protocol Insulin Human Regular (Novolin R) 0 unit SC ACHS [facility]; Protocol Last Admin: 10/11/18 07:56 Dose: Not Given Losartan Potassium (Cozaar) 100 mg PO DAILY [facility] Last Admin: 10/11/18 11:29 Dose: 100 mg Methylprednisolone (Solu-Medrol) 40 mg IVP Q12H [facility] Last Admin: 10/11/18 08:57 Dose: 40 mg Morphine Sulfate (Morphine) 2 mg IVP Q6H PRN PRN Reason: Breakthrough Pain Last Admin: 10/11/18 03:00 Dose: 2 mg Oxycodone HCl (Oxycontin Extended Release Tab) 10 mg PO Q8 [facility] Stop: 10/11/18 18:01 Last Admin: 10/11/18 06:38 Dose: 10 mg Pantoprazole Sodium (Protonix Inj) 40 mg IVP DAILY [facility] Last Admin: 10/11/18 11:29 Dose: 40 mg Zolpidem Tartrate (Ambien) 5 mg PO HS PRN PRN Reason: Insomnia Last Admin: 10/09/18 23:47 Dose: 5 mg - Labs Labs: 10/10/18 08:36 10/10/18 08:36 PT 11.5 SECONDS (9.7-12.2) 10/01/18 12:26 INR 1.1 10/01/18 12:26 APTT 27 SECONDS (21-34) 10/01/18 12:26 - Constitutional Appears: Well, Non-toxic, No Acute Distress - Extremities Exam Additional comments: LE focused exam: Vasc: DP/PT pulses non-palpable secondary to B/L LE edema. CFT < 3 seconds to all digits. Skin temperature increased B/L from proximal to distal. Severe, pitting edema noted to B/L LE, left worse than right Neuro: Epicritic and protective sensation grossly intact B/L Derm: Hyperpigmentation noted to B/L legs consistent with hemosiderin deposition. Blistering and weeping noted to left leg and foot. No purulence or malodor noted at this time MSK: Pain on palpation of b/l LE, L>R - Neurological Exam Neurological Exam: Alert, Awake, Oriented x3 - Psychiatric Exam Psychiatric exam: Normal Affect, Normal Mood Assessment and Plan - Assessment and Plan (Free Text) Assessment: 58 y/o male seen for bilateral lower extremity edema with blistering and weeping to left leg; cellulitis vs. DVT Plan: Patient seen and evaluated Discussed plan with Dr. Areli GREER; no leukocytosis Left leg wound cx: Enterobacter Cloacae Continue IV abx per ID Vascular consult - recs appreciated -CTA Abd Ilio-femoral runoff report: severe stenosis B/L PADDER, w/ L>R; mild-mo derate stenosis SMA; calcified vessels throughout Left venous duplex: No evidence of DVT Left leg dressing applied with Unna boot and SAULO bandage No plan for surgical intervention at this time Stable from podiatry standpoint Upon discharge, follow up with Dr. Singleton in his office as an outpatient Podiatry will continue to follow while patient in house
[2018-10-11 15:58] VITALS: PULSE 80
--- NOTE | 2018-10-11 16:50 | CP.PCM.PN ---
Subjective - Date & Time of Evaluation Date of Evaluation: 10/11/18 Time of Evaluation: 15:45 - Subjective Subjective: SE[facility] SORTER NOTES patient seen today, states feels better, denies any chest pain , sob, states off from oxygen since this am and doing well , wants to go home spo2 96% as per RN D/w Dr. Shah cleared for discharge home from pul. stand point if spo2 room air above 94% as per case management pt refused rehab abd home care arranged for wound care and home PT d/W Dr. Parra cleared for discharge home today discharge plan discussed with patient who understands and agrees with plan RX given upon discharge Objective - Vital Signs/Intake and Output Vital Signs (last 24 hours): Temp Pulse Resp BP Pulse Ox 97.8 F 80 20 171/99 H 98 10/11/18 08:04 10/11/18 15:55 10/11/18 08:30 10/11/18 11:29 10/11/18 08:04 Intake and Output: 10/11/18 10/11/18 06:59 18:59 Intake Total 480 Output Total 600 Balance -120 - Medications Medications: Current Medications Acetaminophen (Tylenol 650mg/20.3ml Solution Ud) 650 mg PO Q6 PRN PRN Reason: Temperature Last Admin: 10/08/18 06:53 Dose: 650 mg Albuterol/Ipratropium (Duoneb 3 Mg/0.5 Mg (3 Ml) Ud) 3 ml INH RQ6 [facility] Last Admin: 10/11/18 13:37 Dose: Not Given Apixaban (Eliquis) 5 mg PO BID [facility] Last Admin: 10/11/18 11:29 Dose: 5 mg Aspirin (Ecotrin) 81 mg PO DAILY [facility] Last Admin: 10/11/18 11:29 Dose: 81 mg Carvedilol (Coreg) 25 mg PO BID [facility] Last Admin: 10/11/18 11:29 Dose: 25 mg Dextrose (Dextrose 50% Inj) 0 ml IV STAT PRN; Protocol PRN Reason: Hypoglycemia Protocol Dextrose (Glutose 15) 0 gm PO ONCE PRN; Protocol PRN Reason: Hypoglycemia Protocol Glucagon (Glucagen Diagnostic Kit) 0 mg IM STAT PRN; Protocol PRN Reason: Hypoglycemia Protocol Insulin Human Regular (Novolin R) [address] [facility]; Protocol Last Admin: 10/11/18 13:13 Dose: 3 u Losartan Potassium (Cozaar) 100 mg PO DAILY [facility] Last Admin: 10/11/18 11:29 Dose: 100 mg Methylprednisolone (Solu-Medrol) 40 mg IVP Q12H [facility] Last Admin: 10/11/18 08:57 Dose: 40 mg Morphine Sulfate (Morphine) 2 mg IVP Q6H PRN PRN Reason: Breakthrough Pain Last Admin: 10/11/18 03:00 Dose: 2 mg Oxycodone HCl (Oxycontin Extended Release Tab) 10 mg PO Q8 [facility] Stop: 10/11/18 18:01 Last Admin: 10/11/18 14:25 Dose: 10 mg Pantoprazole Sodium (Protonix Inj) 40 mg IVP DAILY [facility] Last Admin: 10/11/18 11:29 Dose: 40 mg Zolpidem Tartrate (Ambien) 5 mg PO HS PRN PRN Reason: Insomnia Last Admin: 10/09/18 23:47 Dose: 5 mg - Labs Labs: 10/10/18 08:36 10/10/18 08:36 PT 11.5 SECONDS (9.7-12.2) 10/01/18 12:26 INR 1.1 10/01/18 12:26 APTT 27 SECONDS (21-34) 10/01/18 12:26
== END 2018-10-11 17:24 | disposition home health service (06) | DRG 584 ==
LOC: C.ER 11:07 → C.9I 13:54 → C.5S 10-06 16:19
PROVIDERS: ADMIT Internal Medicine Nephrology; ATTEND Internal Medicine Nephrology
DX: A41.9 Sepsis, unspecified organism (principal); N17.9 Acute kidney failure, unspecified; J18.9 Pneumonia, unspecified organism; L03.116 Cellulitis of left lower limb; E11.22 Type 2 diabetes mellitus with diabetic chronic kidney disease; E11.51 Type 2 diabetes mellitus with diabetic peripheral angiopathy without gangrene; F11.23 Opioid dependence with withdrawal; F13.239 Sedative, hypnotic or anxiolytic dependence with withdrawal, unspecified; I50.9 Heart failure, unspecified; I13.0 Hypertensive heart and chronic kidney disease with heart failure and stage 1 through stage 4 chronic kidney disease, or unspecified chronic kidney disease; J43.9 Emphysema, unspecified; N18.9 Chronic kidney disease, unspecified; I48.91 Unspecified atrial fibrillation; Z91.19 Patient's noncompliance with other medical treatment and regimen; Z53.29 Procedure and treatment not carried out because of patient's decision for other reasons; F10.20 Alcohol dependence, uncomplicated; G47.33 Obstructive sleep apnea (adult) (pediatric); G89.29 Other chronic pain; K59.03 Drug induced constipation; T40.2X5A Adverse effect of other opioids, initial encounter; M16.11 Unilateral primary osteoarthritis, right hip; Z51.5 Encounter for palliative care; Z85.51 Personal history of malignant neoplasm of bladder; Z87.891 Personal history of nicotine dependence

== ENCOUNTER 2018-11-21 14:16 | Inpatient (IN) | payer MEDICAID ==
[2018-11-21 14:16] VITALS: BMI 30.3
--- NOTE | 2018-11-21 15:38 | C.PDOC ---
History Of Present Illness 58 year old male with past medical history of COPD, CHF, Bladder CA, Chronic bilateral hip pain, HTN, DM, TONIO sent to ED by DR. Singleton for admission for left leg cellulitis. Patient complains of chronic open wound, non-healing, pain and swelling to the left leg. Patient states that he has been taking outpatient antibiotics without improvement of symptoms. Time Seen by Provider: 11/21/18 14:56 Chief Complaint (Nursing): Lower Extremity Problem/Injury History Per: Patient History/Exam Limitations: no limitations Onset/Duration Of Symptoms: Other (chronic) Current Symptoms Are (Timing): Still Present Past Medical History Reviewed: Historical Data, Nursing Documentation, Vital Signs Vital Signs: Last Vital Signs Temp 98.1 F 11/21/18 14:50 Pulse 85 11/21/18 14:50 Resp 18 11/21/18 14:50 BP 132/67 11/21/18 14:50 Pulse Ox 97 11/21/18 14:50 - Medical History PMH: Arthritis, Asthma, CHF, COPD, Diabetes, Emphysema, Fractures (LEFT SHOULDER ORIF LEFT ELBOW RIGHT SHOULDER), Gastritis (FROM MEDS), HTN, Peripheral Edema, Pneumonia, Chronic Kidney Disease, Sleep Apnea (NO C PAP) Surgical History: No Surg Hx - [facility] Procedures DRAINAGE OF RIGHT KNEE JOINT, PERCUTANEOUS APPROACH (01/21/18) Family History: States: No Known Family Hx - Social History Hx Tobacco Use: No Hx Alcohol Use: No Hx Substance Use: No - Immunization History Hx Tetanus Toxoid Vaccination: Yes Hx Influenza Vaccination: Yes Hx Pneumococcal Vaccination: Yes Review Of Systems Except As Marked, All Systems Reviewed And Found Negative. Constitutional: Negative for: Fever, Chills Gastrointestinal: Negative for: Nausea, Vomiting, Abdominal Pain, Diarrhea Musculoskeletal: Positive for: Leg Pain, Other (leg swelling) Neurological: Negative for: Weakness, Numbness Physical Exam - Physical Exam Appears: Well, Non-toxic, No Acute Distress Skin: Normal Color, Warm Eye(s): bilateral: PERRL Neck: Supple Cardiovascular: Rhythm Regular, No Murmur, No JVD Respiratory: No Decreased Breath Sounds, No Accessory Muscle Use, No Stridor, No Wheezing Gastrointestinal/Abdominal: Soft, No Tenderness Extremity: Tenderness (diffuse Left lower), Calf Tenderness (Left), Swelling (diffuse Left lower extend to Left ankle), Other (multiple small open Left lower leg wounds with yellow discharge. diffuse left lower leg erythema.) Neurological/Psych: Oriented x3, Normal Speech ED Course And Treatment - Laboratory Results Result Diagrams: 11/21/18 17:14 11/21/18 17:14 Lab Interpretation: No Changes Compared To Prior Results O2 Sat by Pulse Oximetry: 97 (RA) Pulse Ox Interpretation: Normal - Radiology CXR: Interpreted by Me, Read By Radiologist CXR Interpretation: Yes: No Acute Disease - Other Rad Left tib/fib, ankle, foot X-Ray: Interpreted by Me, Viewed By Me Interpretation: (-) osteo - CT Scan/US Venous Doppler US Other Rad Studies (CT/US): Interpreted By Me, Read By Radiologist CT/US Interpretation: (-) DVT LLE Progress Note: Plan: CMP. CBC. CXR. XR Left Foot. Blood Culture. Urine Culture. WOun Culture. Vancomycin 1 gm NaCl IV Fluids. XR Left Ankle. XR Left Tibia/Fibula. Urinalysis. Venous Duplex Scan Left Leg. Pt remained stable during the ED evaluation. Case discussed with DR.J. Michaels admission arranged. notified abour the pt, podiatry resident notified. Disposition - Disposition Disposition: HOSPITALIZED Disposition Time: 17:01 Condition: STABLE - Clinical Impression Clinical Impression: Left leg cellulitis, Wound infection, Ulcer of foot - PA / RN INTEGRATED / Resident Statement MD/DO has reviewed & agrees with the documentation as recorded. - Scribe Statement The provider has reviewed the documentation as recorded by the Scribe (Ridge Karin) All medical record entries made by the Scribe were at my direction and personally dictated by me. I have reviewed the chart and agree that the record accurately reflects my personal performance of the history, physical exam, medical decision making, and the department course for this patient. I have also personally directed, reviewed, and agree with the discharge instructions and disposition.
[2018-11-21] MEDS ORDERED: Sodium Chloride 0.9% 1,000 ML IV ONE (15:42)
[2018-11-21] MEDS ORDERED: Vancomycin 1 gm/NS 200 ml 1 GM/200 ML BAG IVPB STA (15:48)
[2018-11-21] MEDS ORDERED: Albuterol HFA 90 mcg/actuation (8 g) IH PRN (16:43)
[2018-11-21] MEDS ORDERED: Vancomycin 1 gm/NS 200 ml 1 GM/200 ML BAG IVPB SCH (17:00)
[2018-11-21 17:25] LABS: BASO % 0.6 % (0.0-2.0); EOS # 0.1 K/uL (0.0-0.7); EOS % 1.2 % (0.0-4.0); LYMPH # 2.2 K/uL (1.0-4.3); MEAN CELL VOLUME 91.6 fL (80.0-94.0); MEAN CORPUSCULAR HEMOGLOBIN 29.3 pg (27.0-31.0); MEAN CORPUSCULAR HGB CONC 32.1 g/dL (33.0-37.0); MEAN PLATELET VOLUME 7.3 fL (7.2-11.7); MONO # 0.8 K/uL (0.0-0.8); MONO % 10.5 % (0.0-10.0); NEUT # 4.8 K/uL (1.8-7.0); NEUT % 60.7 % (50.0-75.0); RBC 3.1 Mil/uL (4.40-5.90); RED CELL DISTRIBUTION WIDTH 16.9 % (11.5-14.5)
[2018-11-21 17:26] LABS: HEMOGLOBIN 9.1 g/dL (12.0-18.0)
[2018-11-21] MEDS ORDERED: oxyCODONE 5 mg Immediate Release Tab ONE (17:26)
[2018-11-21 17:38] LABS: ALB/GLOB RATIO 1.5 (1.0-2.1); ALBUMIN 3.7 g/dL (3.5-5.0); BLOOD UREA NITROGEN 14 mg/dL (9-20); CALCIUM 9.3 mg/dl (8.6-10.4); GFR NON-AFRICAN AMERICAN > 60
[2018-11-21 17:40] LABS: ALT/SGPT 12 U/L (21-72); AST/SGOT 31 U/L (17-59)
[2018-11-21] MEDS: oxyCODONE 5 mg Immediate Release Tab PO PRN (17:45)
[2018-11-21] MEDS ORDERED: Vancomycin 1 GM 1 GM/250 ML BAG IVPB ONE (17:46)
[2018-11-21 17:57] VITALS: RESP 20
--- NOTE | 2018-11-21 18:05 | RAD ---
HISTORY: SOB COMPARISON: Chest x-ray performed 10/03/18 TECHNIQUE: Chest, one view. FINDINGS: Examination limited by habitus and hypoinflation. LUNGS: No focal consolidation. Please note that chest x-ray has limited sensitivity for the detection of pulmonary masses. PLEURA: No significant pleural effusion identified. No definite pneumothorax . CARDIOVASCULAR: Heart size appears top normal. Atherosclerotic calcifications of the aorta. OSSEOUS STRUCTURES: No acute osseous abnormality identified. VISUALIZED UPPER ABDOMEN: Mild elevation of the right hemidiaphragm. OTHER FINDINGS: None. IMPRESSION: No focal consolidation.
--- NOTE | 2018-11-21 18:08 | CP.PCM.CON ---
History of Present Illness - History of Present Illness History of Present Illness: 58 year old male was sent to ED by DR. Singleton for admission for left leg cellulitis after failing out pt rx Patient complains of chronic non-healing wound left leg with pain and swelling to the left leg. Patient states that he has been taking outpatient antibiotics without improvement of symptoms. ID consulted for this PMH COPD, CHF, Bladder CA, Chronic bilateral hip pain, HTN, DM, TONIO - Medical History PMH: Arthritis, Asthma, CHF, COPD, Diabetes, Emphysema, Fractures (LEFT SHOULDER ORIF LEFT ELBOW RIGHT SHOULDER), Gastritis (FROM MEDS), HTN, Peripheral Edema, Pneumonia, Chronic Kidney Disease, Sleep Apnea (NO C PAP) Surgical History: No Surg Hx - [facility] Procedures DRAINAGE OF RIGHT KNEE JOINT, PERCUTANEOUS APPROACH (01/21/18) Review of Systems - Review of Systems All systems: reviewed and no additional remarkable complaints except - Constitutional Constitutional: As Per HPI - EENT Eyes: absent: As Per HPI, Blind Spots, Blurred Vision, Change in Vision, Decreased Night Vision, Diplopia, Discharge, Dry Eye, Exophthalmos, Floaters, Irritation, Itchy Eyes, Loss of Peripheral Vision, Pain, Photophobia, Requires Corrective Lenses, Sees Flashes, Spots in Vision, Tunnel Vision, Other Visual Disturbances, Loss of Vision, Other Ears: absent: As Per HPI, Decreased Hearing, Ear Discharge, Ear Pain, Tinnitus, Abnormal Hearing, Disequilibrium, Dizziness, Other Nose/Mouth/Throat: absent: As Per HPI, Epistaxis, Nasal Congestion, Nasal Discharge, Nasal Obstruction, Nasal Trauma, Nose Pain, Post Nasal Drip, Sinus Pain, Sinus Pressure, Bleeding Gums, Change in Voice, Dental Pain, Dry Mouth, Dysphagia, Halitosis, Hoarsness, Lip Swelling, Mouth Lesions, Mouth Pain, Odynophagia, Sore Throat, Throat Swelling, Tongue Swelling, Facial Pain, Neck Pain, Neck Mass, Other - Cardiovascular Cardiovascular: As Per HPI - Respiratory Respiratory: absent: As Per HPI, Cough, Dyspnea, Hemoptysis, Dyspnea on Exertion, Wheezing, Snoring, Stridor, Pain on Inspiration, Chest Congestion, Excessive Mucous Production, Change in Mucous Color, Pain with Coughing, Other - Gastrointestinal Gastrointestinal: absent: As Per HPI, Abdominal Pain, Belching, Bloating, Change in Bowel Habits, Change in Stool Character, Coffee Ground Emesis, Constipation, Cramping, Diarrhea, Dyspepsia, Dysphagia, Early Satiety, Excessive Flatus, Fecal Incontinence, Heartburn, Hematemesis, Hematochezia, Loose Stools, Melena, Nausea, Odynophagia, Temesmus, Vomiting, Other - Genitourinary Genitourinary: absent: As Per HPI, Change in Urinary Stream, Difficulty Urinating, Dysuria, Flank Pain, Hematuria, Pyuria, Nocturia, Urinary Incontinence, Urinary Frequency, Urinary Hesitance, Urinary Urgency, Voiding Freq/Small Amts, Freq UTI, Hx Renal/Bladder Calculi, Hx /Renal Surgery, Bladder Distension, Other - Musculoskeletal Musculoskeletal: As Per HPI - Integumentary Integumentary: As Per HPI, Skin Pain, Wounds - Neurological Neurological: absent: As Per HPI, Abnormal Gait, Abnormal Hearing, Abnormal Movements, Abnormal Speech, Behavioral Changes, Burning Sensations, Confusion, Convulsions, Disequilibrium, Dizziness, Numbness, Focal Weakness, Frequent Falls, Headaches, Lack of Coordination, Loss of Vision, Memory Loss, Paresthesias, Radicular Pain, Restless Legs, Sensory Deficit, Syncope, Tingling, Tremor, Vertigo, Weakness, Other Visual Disturbances, Other - Psychiatric Psychiatric: absent: As Per HPI, Abnormal Sleep Pattern, Anhedonia, Anxiety, Auditory Hallucinations, Behavioral Changes, Change in Appetite, Change in Libido, Confusion, Depression, Difficulty Concentrating, Hallucinations, Homicidal Ideation, Hopelessness, Irritability, Memory Loss, Mood Swings, Panic Attacks, Paranoia, Suicidal Ideation, Visual Hallucinations, Tactile Hallucinations, Other - Endocrine Endocrine: As Per HPI - Hematologic/Lymphatic Hematologic: absent: As Per HPI, Easy Bleeding, Easy Bruising, Lymphadenopathy, Other Past Patient History - Infectious Disease Hx of Infectious Diseases: None - Tetanus Immunizations Tetanus Immunization: Unknown - Past Medical History & Family History Past Medical History?: Yes - Past Social History Smoking Status: Former Smoker - CARDIAC Hx Congestive Heart Failure: Yes Hx Hypertension: Yes Hx Peripheral Edema: Yes - PULMONARY Hx Asthma: Yes Hx Chronic Obstructive Pulmonary Disease (COPD): Yes Hx Emphysema: Yes Hx Pneumonia: Yes Hx Sleep Apnea: Yes (NO C PAP) - NEUROLOGICAL Hx Neurological Disorder: No - HEENT Hx HEENT Problems: Yes - RENAL Hx Chronic Kidney Disease: Yes - ENDOCRINE/METABOLIC Hx Endocrine Disorders: Yes Hx Diabetes Mellitus Type 2: Yes - HEMATOLOGICAL/ONCOLOGICAL Hx Blood Disorders: Yes Hx Cancer: Yes (BLADDER) - INTEGUMENTARY Hx Dermatological Problems: Yes (DISCOLORED LOWER EXTREMITIES ) - MUSCULOSKELETAL/RHEUMATOLOGICAL Hx Arthritis: Yes Hx Fractures: Yes (LEFT SHOULDER ORIF LEFT ELBOW RIGHT SHOULDER) - GASTROINTESTINAL Hx Gastritis: Yes (FROM MEDS) - GENITOURINARY/GYNECOLOGICAL Hx Genitourinary Disorders: Yes Hx Bladder Cancer: Yes Hx Hematuria: Yes Other/Comment: BLADDER CANCER - PSYCHIATRIC Hx Substance Use: No - SURGICAL HISTORY Hx Surgeries: Yes Hx Open Reduction Internal Fixation: Yes (LEFT SHOULDER LEFT ELBOW REMOVAL HARDWARE) Hx Orthopedic Surgery: Yes (LEFT KNEE) Other/Comment: TURP; HX: CYSTO WITH BLADDER BX. AND FULG. - ANESTHESIA Hx Anesthesia: Yes Hx Anesthesia Reactions: Yes (DIFFICULTY TO AROUSE BUT WAS DISCHARGED) Meds Allergies/Adverse Reactions: Allergies Allergy/AdvReac Type Severity Reaction Status Date / Time cefuroxime Allergy RASH Verified 10/01/18 11:25 cephalexin Allergy RASH Verified 10/01/18 11:25 clarithromycin Allergy RASH Verified 10/01/18 11:25 levofloxacin Allergy RASH Verified 10/01/18 11:25 moxifloxacin Allergy RASH Verified 10/01/18 11:25 - Medications Medications: Current Medications Acetaminophen (Tylenol 325mg Tab) 650 mg PO Q6H PRN PRN Reason: FOR MODERATE PAIN WITH OXY 10M Last Admin: 11/21/18 17:45 Dose: 650 mg Albuterol (Ventolin Hfa 90 Mcg/Actuation (8 G)) 2 puff IH RQ6 PRN PRN Reason: Shortness of Breath Allopurinol (Zyloprim) 300 mg PO DAILY [facility] Alprazolam (Xanax) 1 mg PO BID PRN PRN Reason: Anxiety Last Admin: 11/21/18 17:45 Dose: 1 mg Aspirin (Ecotrin) 81 mg PO DAILY [facility] Carvedilol (Coreg) 12.5 mg PO BID [facility] Cyanocobalamin (Vitamin B12 100 Mcg Tab) 100 mcg PO DAILY [facility] Ergocalciferol (Drisdol 50,000 Intl Units Cap) 1 cap PO QWK [facility] Famotidine (Pepcid) 20 mg PO BID [facility] Ferrous Sulfate (Feosol) 325 mg PO DAILY [facility] Fluticasone/Vilanterol (Breo Ellipta 100-25 Mcg Inh) 1 puff INH RQ24 [facility] Vancomycin/Sodium Chloride (Vancomycin 1 Gm/Ns 200 Ml) 1 gm in 200 mls @ 133 ml s/hr IVPB Q24H [facility]; Protocol Stop: 11/26/18 17:01 Last Admin: 11/21/18 17:51 Dose: Not Given Metformin HCl (Glucophage) 500 mg PO BIDCC [facility] Montelukast Sodium (Singulair) 10 mg PO HS [facility] Oxycodone HCl (Oxycodone Immediate Release Tab) 10 mg PO Q6 PRN PRN Reason: Pain, moderate (4-7) Last Admin: 11/21/18 17:45 Dose: 10 mg Oxycodone HCl (Oxycontin Extended Release Tab) 20 mg PO Q12 [facility] Rivaroxaban (Xarelto) 20 mg PO DAILY [facility] Rosuvastatin Calcium (Crestor) 5 mg PO HS [facility] Physical Exam - Constitutional Appears: No Acute Distress, Chronically Ill - Head Exam Head Exam: NORMOCEPHALIC - Eye Exam Eye Exam: absent: Scleral icterus Pupil Exam: NORMAL ACCOMODATION - ENT Exam ENT Exam: Mucous Membranes Dry, Normal External Ear Exam - Neck Exam Neck exam: Negative for: Lymphadenopathy - Respiratory Exam Respiratory Exam: Decreased Breath Sounds, Prolonged Expiratory Phase, Rales, Rhonchi. absent: Chest Wall Tenderness, Respiratory Distress - Cardiovascular Exam Cardiovascular Exam: REGULAR RHYTHM, +S1, +S2 - GI/Abdominal Exam GI & Abdominal Exam: Diminished Bowel Sounds, Distended, Soft. absent: Tenderness - Rectal Exam Rectal Exam: Deferred - Exam Exam: NORMAL INSPECTION - Extremities Exam Extremities exam: Positive for: pedal pulses present. Negative for: calf tenderness, pedal edema, tenderness - Back Exam Back exam: absent: CVA tenderness (L), CVA tenderness (R), paraspinal tenderness - Neurological Exam Neurological exam: Alert, CN II-XII Intact, Oriented x3, Reflexes Normal - Psychiatric Exam Psychiatric exam: Depressed - Skin Skin Exam: Dry Additional comments: + swelling redness left leg pulses diminished Results - Vital Signs Recent Vital Signs: Last Vital Signs Temp 98.1 F 11/21/18 14:50 Pulse 88 11/21/18 17:56 Resp 20 11/21/18 17:56 BP 143/66 11/21/18 17:56 Pulse Ox 99 11/21/18 17:56 - Labs Result Diagrams: 11/21/18 17:14 11/21/18 17:14 Labs: Laboratory Results - last 24 hr 11/21/18 11/21/18 17:14 17:14 WBC 8.0 RBC 3.10 L Hgb 9.1 L D Hct 28.4 L MCV 91.6 MCH 29.3 MCHC 32.1 L RDW 16.9 H Plt Count 188 D MPV 7.3 Neut % (Auto) 60.7 Lymph % (Auto) 27.0 [place] % (Auto) 10.5 H Eos % (Auto) 1.2 Baso % (Auto) 0.6 Neut # (Auto) 4.8 Lymph # (Auto) 2.2 [place] # (Auto) 0.8 Eos # (Auto) 0.1 Baso # (Auto) 0.0 Sodium 137 Potassium 3.0 L Chloride 101 Carbon Dioxide 25 Anion Gap 14 BUN 14 Creatinine 0.7 L Est GFR ( Amer) > 60 Est GFR (Non-Af Amer) > 60 Random Glucose 90 Calcium 9.3 Total Bilirubin 0.6 AST 31 ALT 12 L D Alkaline Phosphatase 59 Total Protein 6.3 Albumin 3.7 Globulin 2.6 Albumin/Globulin Ratio 1.5 Assessment & Plan (1) Left leg cellulitis Status: Acute (2) COPD (chronic obstructive pulmonary disease) Status: Acute (3) Cellulitis Status: Acute (4) HTN (hypertension) Status: Acute (5) Venous insufficiency (chronic) (peripheral) Status: Acute - Assessment and Plan (Free Text) Assessment: cont wound care and IV antibiotics await cultures Dr Singleton follow up consider Vascular eval - art and venous dopplers
[2018-11-21 18:11] LABS: SQUAMOUS EPITHIAL < 1 /hpf (0-5); URINE BACTERIA RARE (<OCC); URINE BILIRUBIN NEGATIVE (NEGATIVE); URINE BLOOD NEGATIVE (NEGATIVE); URINE CLARITY Clear (Clear); URINE COLOR Yellow (YELLOW); URINE GLUCOSE (UA) NORMAL (Normal); URINE LEUKOCYTE ESTERASE NEG Leu/uL (Negative); URINE PROTEIN NEGATIVE (NEGATIVE); URINE UROBILINOGEN NORMAL mg/dL (0.2-1.0)
--- NOTE | 2018-11-21 19:10 | CP.PCM.HP ---
Past Patient History - Infectious Disease Hx of Infectious Diseases: None - Tetanus Immunizations Tetanus Immunization: Unknown - Past Medical History & Family History Past Medical History?: Yes - Past Social History Smoking Status: Former Smoker - CARDIAC Hx Congestive Heart Failure: Yes Hx Hypertension: Yes Hx Peripheral Edema: Yes - PULMONARY Hx Asthma: Yes Hx Chronic Obstructive Pulmonary Disease (COPD): Yes Hx Emphysema: Yes Hx Pneumonia: Yes Hx Sleep Apnea: Yes (NO C PAP) - NEUROLOGICAL Hx Neurological Disorder: No - HEENT Hx HEENT Problems: Yes - RENAL Hx Chronic Kidney Disease: Yes - ENDOCRINE/METABOLIC Hx Endocrine Disorders: Yes Hx Diabetes Mellitus Type 2: Yes - HEMATOLOGICAL/ONCOLOGICAL Hx Blood Disorders: Yes Hx Cancer: Yes (BLADDER) - INTEGUMENTARY Hx Dermatological Problems: Yes (DISCOLORED LOWER EXTREMITIES ) - MUSCULOSKELETAL/RHEUMATOLOGICAL Hx Arthritis: Yes Hx Fractures: Yes (LEFT SHOULDER ORIF LEFT ELBOW RIGHT SHOULDER) - GASTROINTESTINAL Hx Gastritis: Yes (FROM MEDS) - GENITOURINARY/GYNECOLOGICAL Hx Genitourinary Disorders: Yes Hx Bladder Cancer: Yes Hx Hematuria: Yes Other/Comment: BLADDER CANCER - PSYCHIATRIC Hx Substance Use: No - SURGICAL HISTORY Hx Surgeries: Yes Hx Open Reduction Internal Fixation: Yes (LEFT SHOULDER LEFT ELBOW REMOVAL HARDWARE) Hx Orthopedic Surgery: Yes (LEFT KNEE) Other/Comment: TURP; HX: CYSTO WITH BLADDER BX. AND FULG. - ANESTHESIA Hx Anesthesia: Yes Hx Anesthesia Reactions: Yes (DIFFICULTY TO AROUSE BUT WAS DISCHARGED) Meds Allergies/Adverse Reactions: Allergies Allergy/AdvReac Type Severity Reaction Status Date / Time cefuroxime Allergy RASH Verified 10/01/18 11:25 cephalexin Allergy RASH Verified 10/01/18 11:25 clarithromycin Allergy RASH Verified 10/01/18 11:25 levofloxacin Allergy RASH Verified 10/01/18 11:25 moxifloxacin Allergy RASH Verified 10/01/18 11:25 Physical Exam - Constitutional Appears: Well - Head Exam Head Exam: ATRAUMATIC, NORMAL INSPECTION, NORMOCEPHALIC - Eye Exam Eye Exam: EOMI, Normal appearance, PERRL Pupil Exam: NORMAL ACCOMODATION, PERRL - ENT Exam ENT Exam: Mucous Membranes Moist, Normal Exam - Neck Exam Neck exam: Positive for: Normal Inspection - Respiratory Exam Respiratory Exam: Decreased Breath Sounds - Cardiovascular Exam Cardiovascular Exam: REGULAR RHYTHM, +S1, +S2 - GI/Abdominal Exam GI & Abdominal Exam: Diminished Bowel Sounds, Soft - Rectal Exam Rectal Exam: Deferred Results - Vital Signs Recent Vital Signs: Last Vital Signs Temp 98.1 F 11/21/18 14:50 Pulse 88 11/21/18 17:56 Resp 20 11/21/18 17:56 BP 140/68 11/21/18 18:41 Pulse Ox 97 11/21/18 18:21 - Labs Result Diagrams: 11/21/18 17:14 11/21/18 17:14 Labs: Laboratory Results - last 24 hr 11/21/18 11/21/18 11/21/18 17:14 17:14 17:59 WBC 8.0 RBC 3.10 L Hgb 9.1 L D Hct 28.4 L MCV 91.6 MCH 29.3 MCHC 32.1 L RDW 16.9 H Plt Count 188 D MPV 7.3 Neut % (Auto) 60.7 Lymph % (Auto) 27.0 [place] % (Auto) 10.5 H Eos % (Auto) 1.2 Baso % (Auto) 0.6 Neut # (Auto) 4.8 Lymph # (Auto) 2.2 [place] # (Auto) 0.8 Eos # (Auto) 0.1 Baso # (Auto) 0.0 Sodium 137 Potassium 3.0 L Chloride 101 Carbon Dioxide 25 Anion Gap 14 BUN 14 Creatinine 0.7 L Est GFR ( Amer) > 60 Est GFR (Non-Af Amer) > 60 Random Glucose 90 Calcium 9.3 Total Bilirubin 0.6 AST 31 ALT 12 L D Alkaline Phosphatase 59 Total Protein 6.3 Albumin 3.7 Globulin 2.6 Albumin/Globulin Ratio 1.5 Urine Color Yellow Urine Clarity Clear Urine pH 6.0 Ur Specific [place] 1.019 Urine Protein Negative Urine Glucose (UA) Normal Urine Ketones Trace Urine Blood Negative Urine Nitrate Negative Urine Bilirubin Negative Urine Urobilinogen Normal Ur Leukocyte Esterase Neg Urine WBC (Auto) < 1 Ur Squamous Epith Cells < 1 Urine Bacteria Rare Hyaline Casts 6-10 H
[2018-11-21] MEDS ORDERED: Potassium Chloride 10 mEq ER Tab PO STA (20:00)
[2018-11-21] MEDS: Potassium Chloride 20 mEq ER Tab PO SCH (20:20)
[2018-11-21] MEDS: (Novolog) Insulin Aspart, Recombinant 100 u/ml 10 ml vial SC SCH (21:29)
[2018-11-21] MEDS: oxyCODONE 20 mg ER Tab (oxyCONTIN) PO SCH (21:31)
[2018-11-22] MEDS: oxyCODONE 5 mg Immediate Release Tab PO PRN ×3 (00:21→15:22)
[2018-11-22] MEDS: Vancomycin 1 gm/NS 200 ml 1 GM/200 ML BAG IVPB SCH ×2 (05:24→18:01)
[2018-11-22] MEDS ORDERED: Fluticasone-Vilanterol 100/25mcg Diskus INH SCH (08:00)
[2018-11-22] MEDS: (Novolog) Insulin Aspart, Recombinant 100 u/ml 10 ml vial SC SCH ×4 (08:09→22:11)
--- NOTE | 2018-11-22 10:06 | CP.PCM.CON ---
History of Present Illness - History of Present Illness History of Present Illness: Podiatry Consult Note- Dr. Singleton 58M with PMH COPD, CHF, Bladder CA, Chronic bilateral hip pain, HTN, DM, TONIO seen and evaluated with attending Dr. Singleton at bedside for left lower extremity wounds with cellulitis. Seen resting at bedside and in NAD. Patient is known to Dr. Singleton service and has been treating patient for left lower extremity wounds. Patient was seen in Dr. Singleton with worsening wounds with increase drainage and odor. Patient reports pain to the left lower extremity at wound sites. Patient denies nausea, fever, chest pains or chills. Patient reports the same SOB. Past Patient History - Infectious Disease Hx of Infectious Diseases: None - Tetanus Immunizations Tetanus Immunization: Unknown - Past Medical History & Family History Past Medical History?: Yes - Past Social History Smoking Status: Former Smoker - CARDIAC Hx Congestive Heart Failure: Yes Hx Hypertension: Yes Hx Peripheral Edema: Yes - PULMONARY Hx Asthma: Yes Hx Chronic Obstructive Pulmonary Disease (COPD): Yes Hx Emphysema: Yes Hx Pneumonia: Yes Hx Sleep Apnea: Yes (NO C PAP) - NEUROLOGICAL Hx Neurological Disorder: No - HEENT Hx HEENT Problems: Yes - RENAL Hx Chronic Kidney Disease: Yes - ENDOCRINE/METABOLIC Hx Endocrine Disorders: Yes Hx Diabetes Mellitus Type 2: Yes - HEMATOLOGICAL/ONCOLOGICAL Hx Blood Disorders: Yes Hx Cancer: Yes (BLADDER) - INTEGUMENTARY Hx Dermatological Problems: Yes (DISCOLORED LOWER EXTREMITIES ) - MUSCULOSKELETAL/RHEUMATOLOGICAL Hx Arthritis: Yes Hx Fractures: Yes (LEFT SHOULDER ORIF LEFT ELBOW RIGHT SHOULDER) - GASTROINTESTINAL Hx Gastritis: Yes (FROM MEDS) - GENITOURINARY/GYNECOLOGICAL Hx Genitourinary Disorders: Yes Hx Bladder Cancer: Yes Hx Hematuria: Yes Other/Comment: BLADDER CANCER - PSYCHIATRIC Hx Substance Use: No - SURGICAL HISTORY Hx Surgeries: Yes Hx Open Reduction Internal Fixation: Yes (LEFT SHOULDER LEFT ELBOW REMOVAL HARDWARE) Hx Orthopedic Surgery: Yes (LEFT KNEE) Other/Comment: TURP; HX: CYSTO WITH BLADDER BX. AND FULG. - ANESTHESIA Hx Anesthesia: Yes Hx Anesthesia Reactions: Yes (DIFFICULTY TO AROUSE BUT WAS DISCHARGED) Meds Allergies/Adverse Reactions: Allergies Allergy/AdvReac Type Severity Reaction Status Date / Time cefuroxime Allergy RASH Verified 10/01/18 11:25 cephalexin Allergy RASH Verified 10/01/18 11:25 clarithromycin Allergy RASH Verified 10/01/18 11:25 levofloxacin Allergy RASH Verified 10/01/18 11:25 moxifloxacin Allergy RASH Verified 10/01/18 11:25 - Medications Medications: Current Medications Acetaminophen (Tylenol 325mg Tab) 650 mg PO Q6H PRN PRN Reason: FOR MODERATE PAIN WITH OXY 10M Last Admin: 11/21/18 17:45 Dose: 650 mg Albuterol (Ventolin Hfa 90 Mcg/Actuation (8 G)) 2 puff IH RQ6 PRN PRN Reason: Shortness of Breath Allopurinol (Zyloprim) 300 mg PO DAILY [facility] Alprazolam (Xanax) 1 mg PO BID PRN PRN Reason: Anxiety Last Admin: 11/22/18 02:03 Dose: 1 mg Aspirin (Ecotrin) 81 mg PO DAILY [facility] Carvedilol (Coreg) 12.5 mg PO BID [facility] Last Admin: 11/21/18 18:41 Dose: 12.5 mg Cyanocobalamin (Vitamin B12 100 Mcg Tab) 100 mcg PO DAILY [facility] Ergocalciferol (Drisdol 50,000 Intl Units Cap) 1 cap PO QWK [facility] Famotidine (Pepcid) 20 mg PO BID [facility] Last Admin: 11/21/18 18:40 Dose: 20 mg Ferrous Sulfate (Feosol) 325 mg PO DAILY [facility] Fluticasone/Vilanterol (Breo Ellipta 100-25 Mcg Inh) 1 puff INH RQ24 [facility] Vancomycin/Sodium Chloride (Vancomycin 1 Gm/Ns 200 Ml) 1 gm in 200 mls @ 133 mls/hr IVPB Q12H [facility]; Protocol Stop: 11/27/18 06:01 Last Admin: 11/22/18 05:24 Dose: 133 mls/hr Insulin Aspart (Novolog) 0 unit SC ACHS [facility]; Protocol Last Admin: 11/22/18 08:09 Dose: Not Given Metformin HCl (Glucophage) 500 mg PO BIDCC [facility] Last Admin: 11/22/18 08:52 Dose: 500 mg Montelukast Sodium (Singulair) 10 mg PO HS [facility] Last Admin: 11/21/18 21:27 Dose: 10 mg Oxycodone HCl (Oxycodone Immediate Release Tab) 10 mg PO Q6 PRN PRN Reason: Pain, moderate (4-7) Last Admin: 11/22/18 06:47 Dose: 10 mg Oxycodone HCl (Oxycontin Extended Release Tab) 20 mg PO Q12 [facility] Last Admin: 11/21/18 21:31 Dose: 20 mg Potassium Chloride (K-Dur 20 Meq Er Tab) 40 meq PO BID [facility] Last Admin: 11/21/18 20:20 Dose: Not Given Rivaroxaban (Xarelto) 20 mg PO DAILY [facility] Rosuvastatin Calcium (Crestor) 5 mg PO HS [facility] Last Admin: 11/21/18 21:28 Dose: 5 mg Physical Exam - Constitutional Appears: Well, Non-toxic, No Acute Distress - Extremities Exam Extremities exam: Negative for: calf tenderness Additional comments: LE focused exam: Vasc: DP/PT pulses non-palpable secondary to B/L LE edema. CFT < 3 seconds to all digits. Skin temperature increased B/L from proximal to distal. 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 Multiple open indurated ulcerations noted to the left lower extremity. A large ulceration measuring approximately 5cm x 7 cm at the posterior aspect of the lower 1/3 leg with wound base mainly fibrotic. All wound bases are mainly fibrotic with sloughing noted. Weeping drainage with odor noted to the left lower extremity. Erythema present. No abscess or fluctance noted MSK: Pain on palpation of b/l LE, L>R - Neurological Exam Neurological exam: Alert, Oriented x3 - Psychiatric Exam Psychiatric exam: Normal Affect, Normal Mood Results - Vital Signs Recent Vital Signs: Last Vital Signs Temp 98.6 F 11/22/18 08:38 Pulse 81 11/22/18 08:38 Resp 20 11/22/18 08:38 BP 121/70 11/22/18 08:38 Pulse Ox 100 11/22/18 08:38 - Labs Result Diagrams: 11/21/18 17:14 11/21/18 17:14 Labs: Laboratory Results - last 24 hr 11/21/18 11/21/18 11/21/18 17:14 17:14 17:59 WBC 8.0 RBC 3.10 L Hgb 9.1 L D Hct 28.4 L MCV 91.6 MCH 29.3 MCHC 32.1 L RDW 16.9 H Plt Count 188 D MPV 7.3 Neut % (Auto) 60.7 Lymph % (Auto) 27.0 [place] % (Auto) 10.5 H Eos % (Auto) 1.2 Baso % (Auto) 0.6 Neut # (Auto) 4.8 Lymph # (Auto) 2.2 [place] # (Auto) 0.8 Eos # (Auto) 0.1 Baso # (Auto) 0.0 Sodium 137 Potassium 3.0 L Chloride 101 Carbon Dioxide 25 Anion Gap 14 BUN 14 Creatinine 0.7 L Est GFR ( Amer) > 60 Est GFR (Non-Af Amer) > 60 POC Glucose (mg/dL) Random Glucose 90 Calcium 9.3 Total Bilirubin 0.6 AST 31 ALT 12 L D Alkaline Phosphatase 59 Total Protein 6.3 Albumin 3.7 Globulin 2.6 Albumin/Globulin Ratio 1.5 Urine Color Yellow Urine Clarity Clear Urine pH 6.0 Ur Specific [place] 1.019 Urine Protein Negative Urine Glucose (UA) Normal Urine Ketones Trace Urine Blood Negative Urine Nitrate Negative Urine Bilirubin Negative Urine Urobilinogen Normal Ur Leukocyte Esterase Neg Urine WBC (Auto) < 1 Ur Squamous Epith Cells < 1 Urine Bacteria Rare Hyaline Casts 6-10 H 11/21/18 11/22/18 20:53 07:05 WBC RBC Hgb Hct MCV MCH MCHC RDW Plt Count MPV Neut % (Auto) Lymph % (Auto) [place] % (Auto) Eos % (Auto) Baso % (Auto) Neut # (Auto) Lymph # (Auto) [place] # (Auto) Eos # (Auto) Baso # (Auto) Sodium Potassium Chloride Carbon Dioxide Anion Gap BUN Creatinine Est GFR ( Amer) Est GFR (Non-Af Amer) POC Glucose (mg/dL) 134 H 115 H Random Glucose Calcium Total Bilirubin AST ALT Alkaline Phosphatase Total Protein Albumin Globulin Albumin/Globulin Ratio Urine Color Urine Clarity Urine pH Ur Specific [place] Urine Protein Urine Glucose (UA) Urine Ketones Urine Blood Urine Nitrate Urine Bilirubin Urine Urobilinogen Ur Leukocyte Esterase Urine WBC (Auto) Ur Squamous Epith Cells Urine Bacteria Hyaline Casts Assessment & Plan - Assessment and Plan (Free Text) Assessment: 58 y/o male seen for bilateral lower extremity edema with worsening left leg nonhealing ulcerations with cellulitis Plan: Patient seen and evaluated with Dr. Singleton Discussed plan in detail with attending Labs, vitals, chart reviewed- afebrile, absent leukocytosis Wound culture ordered and taken of left leg Infectious Disease consulted Abx recommendations appreciated Cleansed with saline solution Applied Xeroform dsd cling and SAULO for compression Patient may WBAT Will continue to follow patient while in house Thank you for allowing us to participate in patient's care
[2018-11-22] MEDS: Potassium Chloride 20 mEq ER Tab PO SCH ×2 (10:19→17:47)
[2018-11-22] MEDS: oxyCODONE 20 mg ER Tab (oxyCONTIN) PO SCH ×2 (10:19→22:07)
--- NOTE | 2018-11-22 10:54 | RAD ---
Date of service: 11/21/2018 PROCEDURE: Left Foot Radiographs. HISTORY: chr. open wound COMPARISON: None. FINDINGS: BONES: Normal. No fracture. JOINTS: Normal. SOFT TISSUES: Normal. OTHER FINDINGS: None. IMPRESSION: Normal left foot radiographs.
--- NOTE | 2018-11-22 10:55 | RAD ---
Date of service: 11/21/2018 PROCEDURE: Left Ankle Radiographs. HISTORY: chr. open wound r/o osteo COMPARISON: None available. FINDINGS: BONES: Normal. No fracture. JOINTS: Normal. No osteoarthritis. Ankle mortise maintained. Talar dome intact SOFT TISSUES: There is a cutaneous defect lateral to the distal fibular diaphysis consistent with known open wound. OTHER FINDINGS: None. IMPRESSION: Wound lateral soft tissues adjacent to distal fibular diaphysis. No plain radiographic evidence of osteomyelitis.
--- NOTE | 2018-11-22 10:56 | RAD ---
Date of service: 11/21/2018 PROCEDURE: Radiographs of the left tibia and fibula. HISTORY: chr. open wound COMPARISON: None available. TECHNIQUE: Frontal and lateral views obtained. FINDINGS: BONES: No fracture or destructive lesion. JOINT SPACES: Unremarkable. OTHER FINDINGS: None. IMPRESSION: Unremarkable radiographs of the left tibia and fibula.
--- NOTE | 2018-11-22 12:33 | VASCLAB ---
Date of service: 11/21/2018 PROCEDURE: Left Lower Extremity Venous Duplex Exam. HISTORY: pain, swelling PRIORS: None. TECHNIQUE: Left common femoral, femoral, popliteal and posterior tibial, peroneal and great saphenous veins were evaluated. Flow was assessed with color Doppler, compressibility, assessment of phasic flow and augmentation response. Report prepared by AMARJIT oPmpa, RVT FINDINGS: LEFT: 1. Common Femoral Vein: 1.1. Compressibility - Fully compressible: Thrombus - None : Flow - Phasic: Augmentation -Normal: Reflux - None. 2. Femoral Vein: 2.1. Compressibility - Fully compressible: Thrombus - None: Flow - Phasic: Augmentation -Normal: Reflux - None. 3. Popliteal Vein: 3.1. Compressibility - Fully compressible: Thrombus - None: Flow - Phasic: Augmentation -Normal: Reflux - None. 4. Posterior Tibial Vein: 4.1. Compressibility - : Thrombus - : Flow - : Augmentation -: Reflux - . 5. Peroneal Vein: 5.1. Compressibility - : Thrombus - : Flow - : Augmentation -: Reflux - . 6. Great Saphenous Vein: 6.1. Compressibility - Fully compressible: Thrombus - None: Flow - Phasic: Augmentation - Normal: Reflux - None. OTHER FINDINGS: Due to swelling in the calf, the left peroneal and posterior tibial vein were not visualized. IMPRESSION: No evidence of deep or superficial vein thrombosis of the left lower extremity with excellent venous flow. Normal valve function noted of the left side. Normal venous flow noted in the right common femoral vein.
--- NOTE | 2018-11-22 18:58 | CP.PCM.PN ---
Subjective - Date & Time of Evaluation Date of Evaluation: 11/22/18 Time of Evaluation: 07:45 - Subjective Subjective: clinically same Objective - Vital Signs/Intake and Output Vital Signs (last 24 hours): Temp Pulse Resp BP Pulse Ox 97.6 F 69 20 131/73 96 11/22/18 16:41 11/22/18 16:41 11/22/18 16:41 11/22/18 18:10 11/22/18 16:41 Intake and Output: 11/22/18 11/22/18 06:59 18:59 Intake Total 500 810 Output Total 400 600 Balance 100 210 - Medications Medications: Current Medications Acetaminophen (Tylenol 325mg Tab) 650 mg PO Q6H PRN PRN Reason: FOR MODERATE PAIN WITH OXY 10M Last Admin: 11/21/18 17:45 Dose: 650 mg Albuterol (Ventolin Hfa 90 Mcg/Actuation (8 G)) 2 puff IH RQ6 PRN PRN Reason: Shortness of Breath Allopurinol (Zyloprim) 300 mg PO DAILY [facility] Last Admin: 11/22/18 10:19 Dose: 300 mg Alprazolam (Xanax) 1 mg PO BID PRN PRN Reason: Anxiety Last Admin: 11/22/18 17:59 Dose: 1 mg Aspirin (Ecotrin) 81 mg PO DAILY [facility] Last Admin: 11/22/18 10:19 Dose: 81 mg Carvedilol (Coreg) 12.5 mg PO BID [facility] Last Admin: 11/22/18 18:10 Dose: 12.5 mg Cyanocobalamin (Vitamin B12 100 Mcg Tab) 100 mcg PO DAILY [facility] Last Admin: 11/22/18 10:19 Dose: 100 mcg Ergocalciferol (Drisdol 50,000 Intl Units Cap) 1 cap PO QWK [facility] Famotidine (Pepcid) 20 mg PO BID [facility] Last Admin: 11/22/18 17:50 Dose: 20 mg Ferrous Sulfate (Feosol) 325 mg PO DAILY [facility] Last Admin: 11/22/18 10:18 Dose: 325 mg Fluticasone/Vilanterol (Breo Ellipta 100-25 Mcg Inh) 1 puff INH RQ24 [facility] Vancomycin/Sodium Chloride (Vancomycin 1 Gm/Ns 200 Ml) 1 gm in 200 mls @ 133 mls/hr IVPB Q12H [facility]; Protocol Stop: 11/27/18 06:01 Last Admin: 11/22/18 18:01 Dose: 133 mls/hr Insulin Aspart (Novolog) 0 unit SC ACHS [facility]; Protocol Last Admin: 11/22/18 17:47 Dose: 1 unit Metformin HCl (Glucophage) 500 mg PO BIDCC [facility] Last Admin: 11/22/18 17:47 Dose: 500 mg Montelukast Sodium (Singulair) 10 mg PO HS [facility] Last Admin: 11/21/18 21:27 Dose: 10 mg Oxycodone HCl (Oxycodone Immediate Release Tab) 10 mg PO Q6 PRN PRN Reason: Pain, moderate (4-7) Last Admin: 11/22/18 15:22 Dose: 10 mg Oxycodone HCl (Oxycontin Extended Release Tab) 20 mg PO Q12 [facility] Last Admin: 11/22/18 10:19 Dose: 20 mg Potassium Chloride (K-Dur 20 Meq Er Tab) 40 meq PO BID [facility] Last Admin: 11/22/18 17:47 Dose: 40 meq Rivaroxaban (Xarelto) 20 mg PO DAILY [facility] Last Admin: 11/22/18 10:19 Dose: 20 mg Rosuvastatin Calcium (Crestor) 5 mg PO [facility] Last Admin: 11/21/18 21:28 Dose: 5 mg - Labs Labs: 11/21/18 17:14 11/21/18 17:14 - Constitutional Appears: Well - Head Exam Head Exam: ATRAUMATIC, NORMAL INSPECTION, NORMOCEPHALIC - Eye Exam Eye Exam: EOMI, Normal appearance, PERRL Pupil Exam: NORMAL ACCOMODATION, PERRL - ENT Exam ENT Exam: Mucous Membranes Moist, Normal Exam - Neck Exam Neck Exam: Full ROM, Normal Inspection. absent: Lymphadenopathy - Respiratory Exam Respiratory Exam: Decreased Breath Sounds - Cardiovascular Exam Cardiovascular Exam: REGULAR RHYTHM, +S1, +S2 - GI/Abdominal Exam GI & Abdominal Exam: Soft, Diminished Bowel Sounds - Rectal Exam Rectal Exam: Deferred
--- NOTE | 2018-11-22 19:12 | CP.PCM.PN ---
Subjective - Date & Time of Evaluation Date of Evaluation: 11/22/18 Time of Evaluation: 09:00 - Subjective Subjective: less pain no fever Objective - Vital Signs/Intake and Output Vital Signs (last 24 hours): Temp Pulse Resp BP Pulse Ox 97.6 F 69 20 131/73 96 11/22/18 16:41 11/22/18 16:41 11/22/18 16:41 11/22/18 18:10 11/22/18 16:41 Intake and Output: 11/22/18 11/23/18 18:59 06:59 Intake Total 810 Output Total 600 Balance 210 - Medications Medications: Current Medications Acetaminophen (Tylenol 325mg Tab) 650 mg PO Q6H PRN PRN Reason: FOR MODERATE PAIN WITH OXY 10M Last Admin: 11/21/18 17:45 Dose: 650 mg Albuterol (Ventolin Hfa 90 Mcg/Actuation (8 G)) 2 puff IH RQ6 PRN PRN Reason: Shortness of Breath Allopurinol (Zyloprim) 300 mg PO DAILY [facility] Last Admin: 11/22/18 10:19 Dose: 300 mg Alprazolam (Xanax) 1 mg PO BID PRN PRN Reason: Anxiety Last Admin: 11/22/18 17:59 Dose: 1 mg Aspirin (Ecotrin) 81 mg PO DAILY [facility] Last Admin: 11/22/18 10:19 Dose: 81 mg Carvedilol (Coreg) 12.5 mg PO BID [facility] Last Admin: 11/22/18 18:10 Dose: 12.5 mg Cyanocobalamin (Vitamin B12 100 Mcg Tab) 100 mcg PO DAILY [facility] Last Admin: 11/22/18 10:19 Dose: 100 mcg Ergocalciferol (Drisdol 50,000 Intl Units Cap) 1 cap PO QWK [facility] Famotidine (Pepcid) 20 mg PO BID [facility] Last Admin: 11/22/18 17:50 Dose: 20 mg Ferrous Sulfate (Feosol) 325 mg PO DAILY [facility] Last Admin: 11/22/18 10:18 Dose: 325 mg Fluticasone/Vilanterol (Breo Ellipta 100-25 Mcg Inh) 1 puff INH RQ24 [facility] Vancomycin/Sodium Chloride (Vancomycin 1 Gm/Ns 200 Ml) 1 gm in 200 mls @ 133 mls/hr IVPB Q12H [facility]; Protocol Stop: 11/27/18 06:01 Last Admin: 11/22/18 18:01 Dose: 133 mls/hr Insulin Aspart (Novolog) 0 unit SC ACHS [facility]; Protocol Last Admin: 11/22/18 17:47 Dose: 1 [facility] Last Admin: 11/22/18 17:47 Dose: 500 mg Montelukast Sodium (Singulair) 10 mg PO [facility] Last Admin: 11/21/18 21:27 Dose: 10 mg Oxycodone HCl (Oxycodone Immediate Release Tab) 10 mg PO Q6 PRN PRN Reason: Pain, moderate (4-7) Last Admin: 11/22/18 15:22 Dose: 10 mg Oxycodone HCl (Oxycontin Extended Release Tab) 20 mg PO Q12 [facility] Last Admin: 11/22/18 10:19 Dose: 20 mg Potassium Chloride (K-Dur 20 Meq Er Tab) 40 meq PO BID [facility] Last Admin: 11/22/18 17:47 Dose: 40 meq Rivaroxaban (Xarelto) 20 mg PO DAILY [facility] Last Admin: 11/22/18 10:19 Dose: 20 mg Rosuvastatin Calcium (Crestor) 5 mg PO [facility] Last Admin: 11/21/18 21:28 Dose: 5 mg - Labs Labs: 11/21/18 17:14 11/21/18 17:14 - Constitutional Appears: Non-toxic, No Acute Distress, Chronically Ill - Head Exam Head Exam: ATRAUMATIC, NORMAL INSPECTION, NORMOCEPHALIC - Eye Exam Eye Exam: EOMI, Normal appearance, PERRL Pupil Exam: NORMAL ACCOMODATION, PERRL - ENT Exam ENT Exam: Mucous Membranes Moist, Normal Exam - Neck Exam Neck Exam: Full ROM, Normal Inspection. absent: Lymphadenopathy - Respiratory Exam Respiratory Exam: Decreased Breath Sounds, Prolonged Expiratory Phase, Rhonchi - Cardiovascular Exam Cardiovascular Exam: REGULAR RHYTHM, +S1, +S2. absent: Murmur - GI/Abdominal Exam GI & Abdominal Exam: Distended, Soft, Normal Bowel Sounds. absent: Tenderness - Rectal Exam Rectal Exam: Deferred - Exam Exam: NORMAL INSPECTION - Extremities Exam Extremities Exam: Full ROM, Pedal Edema. absent: Joint Swelling, Normal Capillary Refill, Normal Inspection, Tenderness Additional comments: + cellulitis left leg - Back Exam Back Exam: NORMAL INSPECTION - Neurological Exam Neurological Exam: Alert, Awake, CN II-XII Intact, Normal Gait, Oriented x3 - Psychiatric Exam Psychiatric exam: Normal Affect, Normal Mood - Skin Skin Exam: Dry, Intact, Normal Color, Warm Assessment and Plan (1) Left leg cellulitis Status: Acute (2) COPD (chronic obstructive pulmonary disease) Status: Acute (3) Cellulitis Status: Acute (4) HTN (hypertension) Status: Acute (5) Venous insufficiency (chronic) (peripheral) Status: Acute - Assessment and Plan (Free Text) Assessment: cont iv antibiotcs and wound care
[2018-11-23] MEDS: oxyCODONE 5 mg Immediate Release Tab PO PRN ×4 (00:10→19:34)
[2018-11-23] MEDS: Vancomycin 1 gm/NS 200 ml 1 GM/200 ML BAG IVPB SCH ×2 (05:30→17:30)
[2018-11-23 07:34] LABS: BASO % 0.5 % (0.0-2.0); EOS # 0.1 K/uL (0.0-0.7); EOS % 2.5 % (0.0-4.0); HEMOGLOBIN 8.5 g/dL (12.0-18.0); LYMPH # 1.8 K/uL (1.0-4.3); LYMPH % 35.6 % (20.0-40.0); MEAN CELL VOLUME 91.2 fL (80.0-94.0); MEAN CORPUSCULAR HEMOGLOBIN 30.5 pg (27.0-31.0); MEAN CORPUSCULAR HGB CONC 33.4 g/dL (33.0-37.0); MEAN PLATELET VOLUME 7.1 fL (7.2-11.7); MONO # 0.5 K/uL (0.0-0.8); MONO % 10.6 % (0.0-10.0); NEUT # 2.5 K/uL (1.8-7.0); NEUT % 50.8 % (50.0-75.0); NRBC % 0.1 % (0.0-2.0); RBC 2.78 Mil/uL (4.40-5.90); RED CELL DISTRIBUTION WIDTH 17.1 % (11.5-14.5)
[2018-11-23 07:46] LABS: ALB/GLOB RATIO 1.3 (1.0-2.1); ALBUMIN 3.1 g/dL (3.5-5.0); ALT/SGPT 7 U/L (21-72); AST/SGOT 21 U/L (17-59); BLOOD UREA NITROGEN 7 mg/dL (9-20); CALCIUM 9.4 mg/dl (8.6-10.4); GFR NON-AFRICAN AMERICAN > 60
[2018-11-23] MEDS: (Novolog) Insulin Aspart, Recombinant 100 u/ml 10 ml vial SC SCH ×4 (07:55→21:45)
[2018-11-23] MEDS: Potassium Chloride 20 mEq ER Tab PO SCH ×4 (09:26→21:46)
[2018-11-23] MEDS: oxyCODONE 20 mg ER Tab (oxyCONTIN) PO SCH ×2 (09:31→21:40)
[2018-11-23] MEDS: Magnesium Sulfate 1 gm in D5W 1 GM/100 ML BAG IVPB SCH ×2 (10:34→14:14)
--- NOTE | 2018-11-23 13:35 | RAD ---
Date of service: 11/23/2018 HISTORY: verify right PICC COMPARISON: No prior. FINDINGS: The right PICC line terminates in the SVC. LUNGS: The lungs are well inflated and clear. PLEURA: No pleural effusions or pneumothorax. CARDIOVASCULAR: The heart is normal in size. No aortic atherosclerotic calcifications present. OSSEOUS STRUCTURES: Within normal limits for the patient's age. VISUALIZED UPPER ABDOMEN: Normal. OTHER FINDINGS: None. IMPRESSION: No active pulmonary disease.
--- NOTE | 2018-11-23 18:45 | CP.PCM.PN ---
Subjective - Date & Time of Evaluation Date of Evaluation: 11/23/18 Time of Evaluation: 14:00 - Subjective Subjective: Podiatry Progress Note- Dr. Singleton 58M with PMH COPD, CHF, Bladder CA, Chronic bilateral hip pain, HTN, DM, TONIO with left lower extremity wounds with cellulitis. Patient is seen sitting out of bed, in chair.Denies overnight acute events. AAOx3 and in NAD. Patient reports doing okay. Denies of pain to the left lower extremity at this time. Patient denies nausea, fever, shortness of breath, chest pains or chills. Dressing is clean with SAULO intact. Objective - Vital Signs/Intake and Output Vital Signs (last 24 hours): Temp Pulse Resp BP Pulse Ox 97.6 F 83 20 122/70 96 11/23/18 15:45 11/23/18 15:45 11/23/18 15:45 11/23/18 17:31 11/23/18 15:45 Intake and Output: 11/23/18 11/23/18 06:59 18:59 Intake Total 1200 Balance 1200 - Medications Medications: Current Medications Acetaminophen (Tylenol 325mg Tab) 650 mg PO Q6H PRN PRN Reason: FOR MODERATE PAIN WITH OXY 10M Last Admin: 11/23/18 17:50 Dose: 650 mg Albuterol (Ventolin Hfa 90 Mcg/Actuation (8 G)) 2 puff IH RQ6 PRN PRN Reason: Shortness of Breath Allopurinol (Zyloprim) 300 mg PO DAILY [facility] Last Admin: 11/23/18 09:26 Dose: 300 mg Alprazolam (Xanax) 1 mg PO BID PRN PRN Reason: Anxiety Last Admin: 11/23/18 09:35 Dose: 1 mg Aspirin (Ecotrin) 81 mg PO DAILY [facility] Last Admin: 11/23/18 09:26 Dose: 81 mg Carvedilol (Coreg) 12.5 mg PO BID [facility] Last Admin: 11/23/18 17:31 Dose: 12.5 mg Cyanocobalamin (Vitamin B12 100 Mcg Tab) 100 mcg PO DAILY [facility] Last Admin: 11/23/18 09:26 Dose: 100 mcg Ergocalciferol (Drisdol 50,000 Intl Units Cap) 1 cap PO QWK [facility] Famotidine (Pepcid) 20 mg PO BID [facility] Last Admin: 11/23/18 17:28 Dose: 20 mg Ferrous Sulfate (Feosol) 325 mg PO DAILY [facility] Last Admin: 11/23/18 09:25 Dose: 325 mg Fluticasone/Vilanterol (Breo Ellipta 100-25 Mcg Inh) 1 puff INH RQ24 [facility] Vancomycin/Sodium Chloride (Vancomycin 1 Gm/Ns 200 Ml) 1 gm in 200 mls @ 133 mls/hr IVPB Q12H [facility]; Protocol Stop: 11/27/18 06:01 Last Admin: 11/23/18 17:30 Dose: 133 mls/hr Influenza Virus Vaccine (Flucelvax Quad 2846-0212 Syr) 60 mcg IM .ONCE ONE Stop: 11/24/18 10:01 Insulin Aspart (Novolog) 0 unit SC [facility]; Protocol Last Admin: 11/23/18 17:29 Dose: Not Given [facility] Last Admin: 11/23/18 17:28 Dose: 500 mg Montelukast Sodium (Singulair) 10 mg PO [facility] Last Admin: 11/22/18 22:08 Dose: 10 mg Oxycodone HCl (Oxycodone Immediate Release Tab) 10 mg PO Q6 PRN PRN Reason: Pain, moderate (4-7) Last Admin: 11/23/18 13:27 Dose: 10 mg Oxycodone HCl (Oxycontin Extended Release Tab) 20 mg PO Q12 [facility] Last Admin: 11/23/18 09:31 Dose: 20 mg Pneumococcal Polyvalent Vaccine (Pneumovax 23 Vaccine) 0.5 ml IM .ONCE ONE Stop: 11/24/18 10:01 Potassium Chloride (K-Dur 20 Meq Er Tab) 40 meq PO BID [facility] Last Admin: 11/23/18 17:29 Dose: 40 meq Potassium Chloride (K-Dur 20 Meq Er Tab) 40 meq PO Q4 [facility] Stop: 11/23/18 20:01 Rivaroxaban (Xarelto) 20 mg PO DAILY [facility] Last Admin: 11/23/18 09:26 Dose: 20 mg Rosuvastatin Calcium (Crestor) 5 mg PO [facility] Last Admin: 11/22/18 22:07 Dose: 5 mg - Labs Labs: 11/23/18 07:15 11/23/18 07:15 - Constitutional Appears: Well, Non-toxic, No Acute Distress - Extremities Exam Extremities Exam: absent: Calf Tenderness Additional comments: LE focused exam: Vasc: DP/PT pulses non-palpable secondary to B/L LE edema. CFT < 3 seconds to all digits. Skin temperature increased B/L from proximal to distal. Severe, pitting edema noted to B/L LE, left worse than right Neuro: Epicritic and protective sensation grossly intact B/L Derm: Hyperpigmentation noted to B/L legs consistent with hemosiderin deposition. Multiple open indurated ulcerations noted to the left lower extremity. A large ulceration measuring approximately 5cm x 7 cm at the posterior aspect of the lower 1/3 leg with wound base mainly fibrotic. All wound bases are mainly fibrotic with sloughing noted. Weeping drainage with odor noted to the left lower extremity. Erythema present. No abscess or fluctance noted MSK: Pain on palpation of B/L LE , Left >Right - Neurological Exam Neurological Exam: Alert, Awake, Oriented x3 - Psychiatric Exam Psychiatric exam: Normal Affect, Normal Mood Assessment and Plan - Assessment and Plan (Free Text) Assessment: 58 y/o male seen for bilateral lower extremity edema with left leg nonhealing ulcerations with cellulitis -slightly improved Plan: Patient seen and evaluated Discussed plan in detail with attending Dr. Singleton Labs, vitals, chart reviewed- afebrile, absent leukocytosis Wound culture ordered and taken of left leg 11/23/18 continue abx per ID, Dr. Vázquez, recommendations appreciated Cleansed ulcerations with saline solution Applied Xeroform dsd cling and SAULO for compression Keep dressing clean dry and intact Patient may WBAT No surgical intervention by Podiatry at this time Will continue to provide local wound care Recommends patient to go to [facility] for continue treatment of left leg ulcerations with cellulitis Will continue to follow patient while in house
--- NOTE | 2018-11-23 19:26 | CP.PCM.PN ---
Subjective - Date & Time of Evaluation Date of Evaluation: 11/23/18 Time of Evaluation: 07:15 - Subjective Subjective: clinically same Objective - Vital Signs/Intake and Output Vital Signs (last 24 hours): Temp Pulse Resp BP Pulse Ox 97.6 F 83 20 122/70 96 11/23/18 15:45 11/23/18 15:45 11/23/18 15:45 11/23/18 17:31 11/23/18 15:45 - Medications Medications: Current Medications Acetaminophen (Tylenol 325mg Tab) 650 mg PO Q6H PRN PRN Reason: FOR MODERATE PAIN WITH OXY 10M Last Admin: 11/23/18 17:50 Dose: 650 mg Albuterol (Ventolin Hfa 90 Mcg/Actuation (8 G)) 2 puff IH RQ6 PRN PRN Reason: Shortness of Breath Allopurinol (Zyloprim) 300 mg PO DAILY [facility] Last Admin: 11/23/18 09:26 Dose: 300 mg Alprazolam (Xanax) 1 mg PO BID PRN PRN Reason: Anxiety Last Admin: 11/23/18 09:35 Dose: 1 mg Aspirin (Ecotrin) 81 mg PO DAILY [facility] Last Admin: 11/23/18 09:26 Dose: 81 mg Carvedilol (Coreg) 12.5 mg PO BID [facility] Last Admin: 11/23/18 17:31 Dose: 12.5 mg Cyanocobalamin (Vitamin B12 100 Mcg Tab) 100 mcg PO DAILY [facility] Last Admin: 11/23/18 09:26 Dose: 100 mcg Ergocalciferol (Drisdol 50,000 Intl Units Cap) 1 cap PO QWK [facility] Famotidine (Pepcid) 20 mg PO BID [facility] Last Admin: 11/23/18 17:28 Dose: 20 mg Ferrous Sulfate (Feosol) 325 mg PO DAILY [facility] Last Admin: 11/23/18 09:25 Dose: 325 mg Fluticasone/Vilanterol (Breo Ellipta 100-25 Mcg Inh) 1 puff INH RQ24 [facility] Vancomycin/Sodium Chloride (Vancomycin 1 Gm/Ns 200 Ml) 1 gm in 200 mls @ 133 mls/hr IVPB Q12H [facility]; Protocol Stop: 11/27/18 06:01 Last Admin: 11/23/18 17:30 Dose: 133 mls/hr Influenza Virus Vaccine (Flucelvax Quad 3571-7686 Syr) 60 mcg IM .ONCE ONE Stop: 11/24/18 10:01 Insulin Aspart (Novolog) 0 unit SC [facility]; Protocol Last Admin: 11/23/18 17:29 Dose: Not Given [facility]) [facility] Last Admin: 11/23/18 17:28 Dose: 500 mg Montelukast Sodium (Singulair) 10 mg PO [facility] Last Admin: 11/22/18 22:08 Dose: 10 mg Oxycodone HCl (Oxycodone Immediate Release Tab) 10 mg PO Q6 PRN PRN Reason: Pain, moderate (4-7) Last Admin: 11/23/18 13:27 Dose: 10 mg Oxycodone HCl (Oxycontin Extended Release Tab) 20 mg PO Q12 [facility] Last Admin: 11/23/18 09:31 Dose: 20 mg Pneumococcal Polyvalent Vaccine (Pneumovax 23 Vaccine) 0.5 ml IM .ONCE ONE Stop: 11/24/18 10:01 Potassium Chloride (K-Dur 20 Meq Er Tab) 40 meq PO BID [facility] Last Admin: 11/23/18 17:29 Dose: 40 meq Potassium Chloride (K-Dur 20 Meq Er Tab) 40 meq PO Q4 [facility] Stop: 11/23/18 20:01 Rivaroxaban (Xarelto) 20 mg PO DAILY [facility] Last Admin: 11/23/18 09:26 Dose: 20 mg Rosuvastatin Calcium (Crestor) 5 mg PO [facility] Last Admin: 11/22/18 22:07 Dose: 5 mg - Labs Labs: 11/23/18 07:15 11/23/18 07:15 - Constitutional Appears: Well - Head Exam Head Exam: ATRAUMATIC, NORMAL INSPECTION, NORMOCEPHALIC - Eye Exam Eye Exam: EOMI, Normal appearance, PERRL Pupil Exam: NORMAL ACCOMODATION, PERRL - ENT Exam ENT Exam: Mucous Membranes Moist, Normal Exam - Neck Exam Neck Exam: Full ROM, Normal Inspection. absent: Lymphadenopathy - Respiratory Exam Respiratory Exam: Decreased Breath Sounds - Cardiovascular Exam Cardiovascular Exam: REGULAR RHYTHM, +S1, +S2 - GI/Abdominal Exam GI & Abdominal Exam: Soft, Diminished Bowel Sounds - Rectal Exam Rectal Exam: Deferred
[2018-11-24] MEDS: oxyCODONE 5 mg Immediate Release Tab PO PRN ×3 (01:40→17:50)
[2018-11-24 05:26] LABS: BASO % 0.5 % (0.0-2.0); EOS # 0.1 K/uL (0.0-0.7); EOS % 2.1 % (0.0-4.0); HEMOGLOBIN 8.6 g/dL (12.0-18.0); LYMPH # 1.7 K/uL (1.0-4.3); LYMPH % 24.8 % (20.0-40.0); MEAN CELL VOLUME 90.5 fL (80.0-94.0); MEAN CORPUSCULAR HEMOGLOBIN 29.8 pg (27.0-31.0); MEAN CORPUSCULAR HGB CONC 32.9 g/dL (33.0-37.0); MEAN PLATELET VOLUME 6.8 fL (7.2-11.7); MONO # 0.5 K/uL (0.0-0.8); MONO % 7.2 % (0.0-10.0); NEUT # 4.6 K/uL (1.8-7.0); NEUT % 65.4 % (50.0-75.0); NRBC % 0.1 % (0.0-2.0); RBC 2.89 Mil/uL (4.40-5.90); RED CELL DISTRIBUTION WIDTH 17.3 % (11.5-14.5)
[2018-11-24] MEDS: Vancomycin 1 gm/NS 200 ml 1 GM/200 ML BAG IVPB SCH ×2 (06:15→19:10)
[2018-11-24 06:16] LABS: BLOOD UREA NITROGEN 7 mg/dL (9-20); CALCIUM 9.7 mg/dl (8.6-10.4); GFR NON-AFRICAN AMERICAN > 60
[2018-11-24] MEDS: (Novolog) Insulin Aspart, Recombinant 100 u/ml 10 ml vial SC SCH ×4 (07:34→21:46)
[2018-11-24] MEDS: oxyCODONE 20 mg ER Tab (oxyCONTIN) PO SCH ×2 (09:44→21:57)
[2018-11-24] MEDS: Potassium Chloride 20 mEq ER Tab PO SCH (09:44)
[2018-11-24] MEDS ORDERED: Influenza Vaccine 60 mcg/0.5 mL SYR (4YR UP) IM ONE (10:00)
[2018-11-24] MEDS ORDERED: Pneumococcal 23-Valent Vaccine IM ONE (10:00)
--- NOTE | 2018-11-24 15:23 | CP.PCM.PN ---
Subjective - Date & Time of Evaluation Date of Evaluation: 11/24/18 Time of Evaluation: 15:21 - Subjective Subjective: Podiatry Progress Note: Dr. Singleton 58M seen and evaluated at bedside with attending Dr. Singleton for left lower extremity wounds with cellulitis. Patient resting comfortably and in NAD. Denies of pain to the left lower extremity at this time. Patient denies nausea, fever, shortness of breath, chest pains or chills. Objective - Vital Signs/Intake and Output Vital Signs (last 24 hours): Temp Pulse Resp BP Pulse Ox 97.4 F L 93 H 20 119/59 L 98 11/24/18 08:28 11/24/18 08:28 11/24/18 08:28 11/24/18 09:50 11/24/18 08:28 Intake and Output: 11/24/18 11/24/18 06:59 18:59 Intake Total 500 480 Balance 500 480 - Medications Medications: Current Medications Acetaminophen (Tylenol 325mg Tab) 650 mg PO Q6H PRN PRN Reason: FOR MODERATE PAIN WITH OXY 10M Last Admin: 11/23/18 17:50 Dose: 650 mg Albuterol (Ventolin Hfa 90 Mcg/Actuation (8 G)) 2 puff IH RQ6 PRN PRN Reason: Shortness of Breath Allopurinol (Zyloprim) 300 mg PO DAILY [facility] Last Admin: 11/24/18 09:44 Dose: 300 mg Alprazolam (Xanax) 1 mg PO BID PRN PRN Reason: Anxiety Last Admin: 11/24/18 11:03 Dose: 1 mg Aspirin (Ecotrin) 81 mg PO DAILY [facility] Last Admin: 11/24/18 09:44 Dose: 81 mg Carvedilol (Coreg) 12.5 mg PO BID [facility] Last Admin: 11/24/18 09:50 Dose: 12.5 mg Cyanocobalamin (Vitamin B12 100 Mcg Tab) 100 mcg PO DAILY [facility] Last Admin: 11/24/18 09:44 Dose: 100 mcg Ergocalciferol (Drisdol 50,000 Intl Units Cap) 1 cap PO QWK [facility] Famotidine (Pepcid) 20 mg PO BID [facility] Last Admin: 11/24/18 09:44 Dose: 20 mg Ferrous Sulfate (Feosol) 325 mg PO DAILY [facility] Last Admin: 11/24/18 09:43 Dose: 325 mg Fluticasone/Vilanterol (Breo Ellipta 100-25 Mcg Inh) 1 puff INH RQ24 [facility] Vancomycin/Sodium Chloride (Vancomycin 1 Gm/Ns 200 Ml) 1 gm in 200 mls @ 133 mls/hr IVPB Q12H [facility]; Protocol Stop: 11/27/18 06:01 Last Admin: 11/24/18 06:15 Dose: 133 mls/hr Insulin Aspart (Novolog) 0 unit SC ACHS [facility]; Protocol Last Admin: 11/24/18 11:36 Dose: Not Given Metformin HCl (Glucophage) 500 mg PO BIDCC [facility] Last Admin: 11/24/18 08:32 Dose: 500 mg Montelukast Sodium (Singulair) 10 mg PO [facility] Last Admin: 11/23/18 21:41 Dose: 10 mg Oxycodone HCl (Oxycodone Immediate Release Tab) 10 mg PO Q6 PRN PRN Reason: Pain, moderate (4-7) Last Admin: 11/24/18 11:03 Dose: 10 mg Oxycodone HCl (Oxycontin Extended Release Tab) 20 mg PO Q12 [facility] Last Admin: 11/24/18 09:44 Dose: 20 mg Potassium Chloride (K-Dur 20 Meq Er Tab) 40 meq PO BID [facility] Last Admin: 11/24/18 09:44 Dose: 40 meq Rivaroxaban (Xarelto) 20 mg PO DAILY [facility] Last Admin: 11/24/18 09:44 Dose: 20 mg Rosuvastatin Calcium (Crestor) 5 mg PO [facility] Last Admin: 11/23/18 21:41 Dose: 5 mg - Labs Labs: 11/24/18 05:19 11/24/18 05:19 - Constitutional Appears: Non-toxic, No Acute Distress - Head Exam Head Exam: ATRAUMATIC, NORMOCEPHALIC - Extremities Exam Additional comments: LE focused exam: Vasc: DP/PT pulses non-palpable secondary to B/L LE edema. CFT < 3 seconds to all digits. Skin temperature increased B/L from proximal to distal. Severe, pitting edema noted to B/L LE, left worse than right Neuro: Gross and protective sensation intact B/L Derm: Hyperpigmentation noted to B/L legs consistent with hemosiderin deposition. Multiple open indurated ulcerations noted to the left lower extremity. A large ulceration measuring approximately 5cm x 7 cm at the posterior aspect of the lower 1/3 leg with wound base mainly fibrotic. All wound bases are mainly fibrotic with sloughing noted. Weeping drainage with odor noted to the left lower extremity. Erythema present. No abscess or fluctance noted MSK: Pain on palpation of B/L LE , Left >Right - Neurological Exam Neurological Exam: Alert, Awake, Oriented x3 - Psychiatric Exam Psychiatric exam: Normal Affect, Normal Mood Assessment and Plan - Assessment and Plan (Free Text) Assessment: 58 y/o male seen for bilateral lower extremity edema with left leg nonhealing ulcerations with cellulitis -slightly improved Plan: Patient seen and evaluated at bedside with Dr. Singleton Labs, vitals, chart reviewed- afebrile, WBC 7.0 Wound culture L leg; pseudomonas, enterococcus continue abx per ID, Dr. Vázquez, recommendations appreciated Cleansed ulcerations with saline solution and dressed with xeroform, DSD, kerlix, SAULO Patient may WBAT No surgical intervention by Podiatry at this time Will continue to provide local wound care Recommend patient to go to [facility] for continue treatment of left leg ulcerations with cellulitis
--- NOTE | 2018-11-24 15:33 | CP.PCM.PN ---
Subjective - Date & Time of Evaluation Date of Evaluation: 11/24/18 Objective - Vital Signs/Intake and Output Vital Signs (last 24 hours): Temp Pulse Resp BP Pulse Ox 97.4 F L 93 H 20 119/59 L 98 11/24/18 08:28 11/24/18 08:28 11/24/18 08:28 11/24/18 09:50 11/24/18 08:28 Intake and Output: 11/24/18 11/24/18 06:59 18:59 Intake Total 500 480 Balance 500 480 - Medications Medications: Current Medications Acetaminophen (Tylenol 325mg Tab) 650 mg PO Q6H PRN PRN Reason: FOR MODERATE PAIN WITH OXY 10M Last Admin: 11/23/18 17:50 Dose: 650 mg Albuterol (Ventolin Hfa 90 Mcg/Actuation (8 G)) 2 puff IH RQ6 PRN PRN Reason: Shortness of Breath Allopurinol (Zyloprim) 300 mg PO DAILY [facility] Last Admin: 11/24/18 09:44 Dose: 300 mg Alprazolam (Xanax) 1 mg PO BID PRN PRN Reason: Anxiety Last Admin: 11/24/18 11:03 Dose: 1 mg Aspirin (Ecotrin) 81 mg PO DAILY [facility] Last Admin: 11/24/18 09:44 Dose: 81 mg Carvedilol (Coreg) 12.5 mg PO BID [facility] Last Admin: 11/24/18 09:50 Dose: 12.5 mg Cyanocobalamin (Vitamin B12 100 Mcg Tab) 100 mcg PO DAILY [facility] Last Admin: 11/24/18 09:44 Dose: 100 mcg Ergocalciferol (Drisdol 50,000 Intl Units Cap) 1 cap PO QWK [facility] Famotidine (Pepcid) 20 mg PO BID [facility] Last Admin: 11/24/18 09:44 Dose: 20 mg Ferrous Sulfate (Feosol) 325 mg PO DAILY [facility] Last Admin: 11/24/18 09:43 Dose: 325 mg Fluticasone/Vilanterol (Breo Ellipta 100-25 Mcg Inh) 1 puff INH RQ24 [facility] Vancomycin/Sodium Chloride (Vancomycin 1 Gm/Ns 200 Ml) 1 gm in 200 mls @ 133 mls/hr IVPB Q12H [facility]; Protocol Stop: 11/27/18 06:01 Last Admin: 11/24/18 06:15 Dose: 133 mls/hr Insulin Aspart (Novolog) 0 unit SC ACHS [facility]; Protocol Last Admin: 11/24/18 11:36 Dose: Not Given [facility] Last Admin: 11/24/18 08:32 Dose: 500 mg Montelukast Sodium (Singulair) 10 mg PO HS [facility] Last Admin: 11/23/18 21:41 Dose: 10 mg Oxycodone HCl (Oxycodone Immediate Release Tab) 10 mg PO Q6 PRN PRN Reason: Pain, moderate (4-7) Last Admin: 11/24/18 11:03 Dose: 10 mg Oxycodone HCl (Oxycontin Extended Release Tab) 20 mg PO Q12 [facility] Last Admin: 11/24/18 09:44 Dose: 20 mg Potassium Chloride (K-Dur 20 Meq Er Tab) 40 meq PO BID [facility] Last Admin: 11/24/18 09:44 Dose: 40 meq Rivaroxaban (Xarelto) 20 mg PO DAILY [facility] Last Admin: 11/24/18 09:44 Dose: 20 mg Rosuvastatin Calcium (Crestor) 5 mg PO HS [facility] Last Admin: 11/23/18 21:41 Dose: 5 mg - Labs Labs: 11/24/18 05:19 11/24/18 05:19
--- NOTE | 2018-11-24 15:54 | CP.PCM.PN ---
Subjective - Date & Time of Evaluation Date of Evaluation: 11/24/18 Time of Evaluation: 07:00 - Subjective Subjective: growinf pseudomonas and enterococcus from wound add azactam if ok with dr Jewel Michaels Objective - Vital Signs/Intake and Output Vital Signs (last 24 hours): Temp Pulse Resp BP Pulse Ox 97.4 F L 93 H 20 119/59 L 98 11/24/18 08:28 11/24/18 08:28 11/24/18 08:28 11/24/18 09:50 11/24/18 08:28 Intake and Output: 11/24/18 11/24/18 06:59 18:59 Intake Total 500 480 Balance 500 480 - Medications Medications: Current Medications Acetaminophen (Tylenol 325mg Tab) 650 mg PO Q6H PRN PRN Reason: FOR MODERATE PAIN WITH OXY 10M Last Admin: 11/23/18 17:50 Dose: 650 mg Albuterol (Ventolin Hfa 90 Mcg/Actuation (8 G)) 2 puff IH RQ6 PRN PRN Reason: Shortness of Breath Allopurinol (Zyloprim) 300 mg PO DAILY [facility] Last Admin: 11/24/18 09:44 Dose: 300 mg Alprazolam (Xanax) 1 mg PO BID PRN PRN Reason: Anxiety Last Admin: 11/24/18 11:03 Dose: 1 mg Aspirin (Ecotrin) 81 mg PO DAILY [facility] Last Admin: 11/24/18 09:44 Dose: 81 mg Carvedilol (Coreg) 12.5 mg PO BID [facility] Last Admin: 11/24/18 09:50 Dose: 12.5 mg Cyanocobalamin (Vitamin B12 100 Mcg Tab) 100 mcg PO DAILY [facility] Last Admin: 11/24/18 09:44 Dose: 100 mcg Ergocalciferol (Drisdol 50,000 Intl Units Cap) 1 cap PO QWK [facility] Famotidine (Pepcid) 20 mg PO BID [facility] Last Admin: 11/24/18 09:44 Dose: 20 mg Ferrous Sulfate (Feosol) 325 mg PO DAILY [facility] Last Admin: 11/24/18 09:43 Dose: 325 mg Fluticasone/Vilanterol (Breo Ellipta 100-25 Mcg Inh) 1 puff INH RQ24 [facility] Vancomycin/Sodium Chloride (Vancomycin 1 Gm/Ns 200 Ml) 1 gm in 200 mls @ 133 mls/hr IVPB Q12H [facility]; Protocol Stop: 11/27/18 06:01 Last Admin: 11/24/18 06:15 Dose: 133 mls/hr Magnesium Sulfate/Dextrose (Magnesium Sulfate 1 Gm/100 Ml D5w) 1 gm in 100 mls @ 300 mls/hr IVPB Q30M [facility] Stop: 11/24/18 16:49 Aztreonam 1 gm/ Sodium (Chloride) 100 mls @ 100 mls/hr IVPB Q8H [facility]; Protocol Insulin Aspart (Novolog) 0 unit SC ACHS [facility]; Protocol Last Admin: 11/24/18 11:36 Dose: Not Given Metformin HCl (Glucophage) 500 mg PO BIDCC [facility] Last Admin: 11/24/18 08:32 Dose: 500 mg Montelukast Sodium (Singulair) 10 mg PO HS [facility] Last Admin: 11/23/18 21:41 Dose: 10 mg Oxycodone HCl (Oxycodone Immediate Release Tab) 10 mg PO Q6 PRN PRN Reason: Pain, moderate (4-7) Last Admin: 11/24/18 11:03 Dose: 10 mg Oxycodone HCl (Oxycontin Extended Release Tab) 20 mg PO Q12 [facility] Last Admin: 11/24/18 09:44 Dose: 20 mg Rivaroxaban (Xarelto) 20 mg PO DAILY [facility] Last Admin: 11/24/18 09:44 Dose: 20 mg Rosuvastatin Calcium (Crestor) 5 mg PO HS [facility] Last Admin: 11/23/18 21:41 Dose: 5 mg - Labs Labs: 11/24/18 05:19 11/24/18 05:19 Assessment and Plan (1) Left leg cellulitis Status: Acute (2) COPD (chronic obstructive pulmonary disease) Status: Acute (3) Cellulitis Status: Acute (4) HTN (hypertension) Status: Acute (5) Venous insufficiency (chronic) (peripheral) Status: Acute
[2018-11-24] MEDS: Magnesium Sulfate 1 gm in D5W 1 GM/100 ML BAG IVPB SCH ×2 (16:06→16:47)
[2018-11-24] MEDS: Aztreonam 1 GM in Sodium Chloride 0.9% 100 ML IVPB SCH (17:54)
[2018-11-25] MEDS: Aztreonam 1 GM in Sodium Chloride 0.9% 100 ML IVPB SCH ×3 (00:34→16:14)
[2018-11-25] MEDS: oxyCODONE 5 mg Immediate Release Tab PO PRN ×4 (00:39→19:37)
[2018-11-25] MEDS: Vancomycin 1 gm/NS 200 ml 1 GM/200 ML BAG IVPB SCH ×2 (05:42→17:46)
[2018-11-25] MEDS: (Novolog) Insulin Aspart, Recombinant 100 u/ml 10 ml vial SC SCH ×4 (08:03→21:26)
[2018-11-25] MEDS: oxyCODONE 20 mg ER Tab (oxyCONTIN) PO SCH ×2 (10:13→21:18)
--- NOTE | 2018-11-25 15:26 | CP.PCM.PN ---
Subjective - Date & Time of Evaluation Date of Evaluation: 11/25/18 Objective - Vital Signs/Intake and Output Vital Signs (last 24 hours): Temp Pulse Resp BP Pulse Ox 98.7 F 72 20 109/70 97 11/25/18 08:00 11/25/18 08:00 11/25/18 08:00 11/25/18 10:21 11/25/18 08:00 Intake and Output: 11/25/18 11/25/18 06:59 18:59 Intake Total 950 Balance 950 - Medications Medications: Current Medications Acetaminophen (Tylenol 325mg Tab) 650 mg PO Q6H PRN PRN Reason: FOR MODERATE PAIN WITH OXY 10M Last Admin: 11/23/18 17:50 Dose: 650 mg Albuterol (Ventolin Hfa 90 Mcg/Actuation (8 G)) 2 puff IH RQ6 PRN PRN Reason: Shortness of Breath Allopurinol (Zyloprim) 300 mg PO DAILY [facility] Last Admin: 11/25/18 10:12 Dose: 300 mg Alprazolam (Xanax) 1 mg PO BID PRN PRN Reason: Anxiety Last Admin: 11/25/18 10:24 Dose: 1 mg Aspirin (Ecotrin) 81 mg PO DAILY [facility] Last Admin: 11/25/18 10:12 Dose: 81 mg Carvedilol (Coreg) 12.5 mg PO BID [facility] Last Admin: 11/25/18 10:21 Dose: 12.5 mg Cyanocobalamin (Vitamin B12 100 Mcg Tab) 100 mcg PO DAILY [facility] Last Admin: 11/25/18 10:14 Dose: 100 mcg Ergocalciferol (Drisdol 50,000 Intl Units Cap) 1 cap PO QWK [facility] Famotidine (Pepcid) 20 mg PO BID [facility] Last Admin: 11/25/18 10:12 Dose: 20 mg Ferrous Sulfate (Feosol) 325 mg PO DAILY [facility] Last Admin: 11/25/18 10:14 Dose: 325 mg Fluticasone/Vilanterol (Breo Ellipta 100-25 Mcg Inh) 1 puff INH RQ24 [facility] Vancomycin/Sodium Chloride (Vancomycin 1 Gm/Ns 200 Ml) 1 gm in 200 mls @ 133 mls/hr IVPB Q12H [facility]; Protocol Stop: 11/27/18 06:01 Last Admin: 11/25/18 05:42 Dose: 133 mls/hr Aztreonam 1 gm/ Sodium (Chloride) 100 mls @ 100 mls/hr IVPB Q8H [facility]; Protocol Last Admin: 11/25/18 08:18 Dose: 100 mls/hr Insulin Aspart (Novolog) 0 unit SC ACHS [facility]; Protocol Last Admin: 11/25/18 12:21 Dose: Not Given Metformin HCl (Glucophage) 500 mg PO BIDCC [facility] Last Admin: 11/25/18 08:18 Dose: 500 mg Montelukast Sodium (Singulair) 10 mg PO HS [facility] Last Admin: 11/24/18 21:57 Dose: 10 mg Oxycodone HCl (Oxycodone Immediate Release Tab) 10 mg PO Q6 PRN PRN Reason: Pain, moderate (4-7) Last Admin: 11/25/18 13:38 Dose: 10 mg Oxycodone HCl (Oxycontin Extended Release Tab) 20 mg PO Q12 [facility] Last Admin: 11/25/18 10:13 Dose: 20 mg Rivaroxaban (Xarelto) 20 mg PO DAILY [facility] Last Admin: 11/25/18 10:14 Dose: 20 mg Rosuvastatin Calcium (Crestor) 5 mg PO [facility] Last Admin: 11/24/18 21:57 Dose: 5 mg - Labs Labs: 11/24/18 05:19 11/24/18 05:19 - Constitutional Appears: Well - Head Exam Head Exam: ATRAUMATIC, NORMAL INSPECTION, NORMOCEPHALIC - Eye Exam Eye Exam: EOMI, Normal appearance, PERRL Pupil Exam: NORMAL ACCOMODATION, PERRL - ENT Exam ENT Exam: Mucous Membranes Moist, Normal Exam - Neck Exam Neck Exam: Full ROM, Normal Inspection. absent: Lymphadenopathy - Respiratory Exam Respiratory Exam: Decreased Breath Sounds - Cardiovascular Exam Cardiovascular Exam: REGULAR RHYTHM, +S1, +S2 - GI/Abdominal Exam GI & Abdominal Exam: Soft, Diminished Bowel Sounds - Rectal Exam Rectal Exam: Deferred Assessment and Plan (1) Peripheral vascular disease Status: Acute (2) Left leg cellulitis Status: Acute (3) Ulcer of foot Status: Acute (4) Wound infection Status: Acute (5) Alcohol abuse Status: Acute (6) COPD exacerbation Status: Acute (7) Chronic pain syndrome Status: Acute (8) HTN (hypertension) Status: Acute (9) Venous insufficiency (chronic) (peripheral) Status: Acute - Assessment and Plan (Free Text) Plan: IV HTN Fluticasone Coreg Crestor Aspirin Feosol Metformin NovoLog Oxycodone Famotidine Singulair IV vancomycin P.o. Xarelto Follow-up with the consultations Medicine reviewed labs reviewed vital signs reviewed Gram stain wound cultures suggest Pseudomonas We will check with the ID doctor to see how long antibiotic to be given Patient has a PICC line already on the right Sensitivities seen Pseudomonas sensitive to IV Zosyn and IV vancomycin enterococcus faecalis
--- NOTE | 2018-11-25 15:33 | CP.PCM.PN ---
Subjective - Date & Time of Evaluation Date of Evaluation: 11/25/18 Time of Evaluation: 08:00 - Subjective Subjective: seen on rounds ROS completed chart reviewed patient examined orders written antibiotics renewed Objective - Vital Signs/Intake and Output Vital Signs (last 24 hours): Temp Pulse Resp BP Pulse Ox 98.7 F 72 20 109/70 97 11/25/18 08:00 11/25/18 08:00 11/25/18 08:00 11/25/18 10:21 11/25/18 08:00 Intake and Output: 11/25/18 11/25/18 06:59 18:59 Intake Total 950 Balance 950 - Medications Medications: Current Medications Acetaminophen (Tylenol 325mg Tab) 650 mg PO Q6H PRN PRN Reason: FOR MODERATE PAIN WITH OXY 10M Last Admin: 11/23/18 17:50 Dose: 650 mg Albuterol (Ventolin Hfa 90 Mcg/Actuation (8 G)) 2 puff IH RQ6 PRN PRN Reason: Shortness of Breath Allopurinol (Zyloprim) 300 mg PO DAILY [facility] Last Admin: 11/25/18 10:12 Dose: 300 mg Alprazolam (Xanax) 1 mg PO BID PRN PRN Reason: Anxiety Last Admin: 11/25/18 10:24 Dose: 1 mg Aspirin (Ecotrin) 81 mg PO DAILY [facility] Last Admin: 11/25/18 10:12 Dose: 81 mg Carvedilol (Coreg) 12.5 mg PO BID [facility] Last Admin: 11/25/18 10:21 Dose: 12.5 mg Cyanocobalamin (Vitamin B12 100 Mcg Tab) 100 mcg PO DAILY [facility] Last Admin: 11/25/18 10:14 Dose: 100 mcg Ergocalciferol (Drisdol 50,000 Intl Units Cap) 1 cap PO QWK [facility] Famotidine (Pepcid) 20 mg PO BID [facility] Last Admin: 11/25/18 10:12 Dose: 20 mg Ferrous Sulfate (Feosol) 325 mg PO DAILY [facility] Last Admin: 11/25/18 10:14 Dose: 325 mg Fluticasone/Vilanterol (Breo Ellipta 100-25 Mcg Inh) 1 puff INH RQ24 [facility] Vancomycin/Sodium Chloride (Vancomycin 1 Gm/Ns 200 Ml) 1 gm in 200 mls @ 133 mls/hr IVPB Q12H [facility]; Protocol Stop: 11/27/18 06:01 Last Admin: 11/25/18 05:42 Dose: 133 mls/hr Aztreonam 1 gm/ Sodium (Chloride) 100 mls @ 100 mls/hr IVPB Q8H [facility]; Protocol Last Admin: 11/25/18 08:18 Dose: 100 mls/hr Insulin Aspart (Novolog) 0 unit SC ACHS [facility]; Protocol Last Admin: 11/25/18 12:21 Dose: Not Given Metformin HCl (Glucophage) 500 mg PO BIDCC [facility] Last Admin: 11/25/18 08:18 Dose: 500 mg Montelukast Sodium (Singulair) 10 mg PO [facility] Last Admin: 11/24/18 21:57 Dose: 10 mg Oxycodone HCl (Oxycodone Immediate Release Tab) 10 mg PO Q6 PRN PRN Reason: Pain, moderate (4-7) Last Admin: 11/25/18 13:38 Dose: 10 mg Oxycodone HCl (Oxycontin Extended Release Tab) 20 mg PO Q12 [facility] Last Admin: 11/25/18 10:13 Dose: 20 mg Rivaroxaban (Xarelto) 20 mg PO DAILY [facility] Last Admin: 11/25/18 10:14 Dose: 20 mg Rosuvastatin Calcium (Crestor) 5 mg PO [facility] Last Admin: 11/24/18 21:57 Dose: 5 mg - Labs Labs: 11/24/18 05:19 11/24/18 05:19 - Constitutional Appears: No Acute Distress, Chronically Ill - Head Exam Head Exam: ATRAUMATIC, NORMAL INSPECTION, NORMOCEPHALIC - Eye Exam Eye Exam: EOMI, Normal appearance, PERRL Pupil Exam: NORMAL ACCOMODATION, PERRL - ENT Exam ENT Exam: Mucous Membranes Moist, Normal Exam - Neck Exam Neck Exam: Full ROM, Normal Inspection. absent: Lymphadenopathy - Respiratory Exam Respiratory Exam: Decreased Breath Sounds, Prolonged Expiratory Phase, Rhonchi - Cardiovascular Exam Cardiovascular Exam: REGULAR RHYTHM, +S1, +S2. absent: Murmur - GI/Abdominal Exam GI & Abdominal Exam: Distended, Soft, Normal Bowel Sounds. absent: Tenderness - Rectal Exam Rectal Exam: Deferred - Exam Exam: NORMAL INSPECTION - Extremities Exam Extremities Exam: Full ROM, Normal Capillary Refill, Normal Inspection. absent: Joint Swelling, Pedal Edema - Back Exam Back Exam: NORMAL INSPECTION - Neurological Exam Neurological Exam: Alert, Awake, CN II-XII Intact, Normal Gait, Oriented x3 - Psychiatric Exam Psychiatric exam: Normal Affect, Normal Mood - Skin Skin Exam: Dry, Warm. absent: Intact Additional comments: right leg unna boot in place Assessment and Plan (1) Left leg cellulitis Status: Acute (2) COPD (chronic obstructive pulmonary disease) Status: Acute (3) Cellulitis Status: Acute (4) HTN (hypertension) Status: Acute (5) Venous insufficiency (chronic) (peripheral) Status: Acute (6) MRSA (methicillin resistant Staphylococcus aureus) infection Status: Acute - Assessment and Plan (Free Text) Assessment: cont iv rx for severe cellulitis / MRSA+
[2018-11-26] MEDS: Aztreonam 1 GM in Sodium Chloride 0.9% 100 ML IVPB SCH ×3 (00:52→16:25)
[2018-11-26] MEDS: oxyCODONE 5 mg Immediate Release Tab PO PRN ×3 (03:12→20:21)
[2018-11-26] MEDS: Vancomycin 1 gm/NS 200 ml 1 GM/200 ML BAG IVPB SCH ×2 (05:25→17:22)
[2018-11-26] MEDS: Albuterol-Ipratrop 3 mg / 0.5 (3 ml) UD INH SCH ×2 (07:54→14:55)
[2018-11-26] MEDS: (Novolog) Insulin Aspart, Recombinant 100 u/ml 10 ml vial SC SCH ×4 (08:12→21:29)
[2018-11-26] MEDS: oxyCODONE 20 mg ER Tab (oxyCONTIN) PO SCH ×2 (09:13→21:57)
--- NOTE | 2018-11-26 11:23 | CP.PCM.PN ---
Subjective - Date & Time of Evaluation Date of Evaluation: 11/26/18 Time of Evaluation: 13:00 - Subjective Subjective: Podiatry Progress Note- Dr. Singleton 58M seen and evaluated at bedside with attending Dr. Singleton for left lower extremity wounds with cellulitis. Patient is AA0x3 and NAD. Denies overnight events. Patient was out of chair walking to bed. Denies of pain to the left lower extremity at this time. Reports is doing well. Patient denies nausea, fever, shortness of breath, chest pains or chills. Objective - Vital Signs/Intake and Output Vital Signs (last 24 hours): Temp Pulse Resp BP Pulse Ox 98 F 101 H 20 110/70 97 11/26/18 08:40 11/26/18 08:40 11/26/18 08:40 11/26/18 09:14 11/26/18 08:40 Intake and Output: 11/26/18 11/26/18 06:59 18:59 Intake Total 800 Balance 800 - Medications Medications: Current Medications Acetaminophen (Tylenol 325mg Tab) 650 mg PO Q6H PRN PRN Reason: FOR MODERATE PAIN WITH OXY 10M Last Admin: 11/23/18 17:50 Dose: 650 mg Albuterol (Ventolin Hfa 90 Mcg/Actuation (8 G)) 2 puff IH RQ6 PRN PRN Reason: Shortness of Breath Albuterol/Ipratropium (Duoneb 3 Mg/0.5 Mg (3 Ml) Ud) 3 ml INH RQ6 [facility] Allopurinol (Zyloprim) 300 mg PO DAILY [facility] Last Admin: 11/26/18 09:14 Dose: 300 mg Alprazolam (Xanax) 1 mg PO BID PRN PRN Reason: Anxiety Last Admin: 11/26/18 09:13 Dose: 1 mg Aspirin (Ecotrin) 81 mg PO DAILY [facility] Last Admin: 11/26/18 09:14 Dose: 81 mg Carvedilol (Coreg) 12.5 mg PO BID [facility] Last Admin: 11/26/18 09:14 Dose: 12.5 mg Cyanocobalamin (Vitamin B12 100 Mcg Tab) 100 mcg PO DAILY [facility] Last Admin: 11/26/18 09:13 Dose: 100 mcg Ergocalciferol (Drisdol 50,000 Intl Units Cap) 1 cap PO QWK [facility] Famotidine (Pepcid) 20 mg PO BID [facility] Last Admin: 11/26/18 09:15 Dose: 20 mg Ferrous Sulfate (Feosol) 325 mg PO DAILY [facility] Last Admin: 11/26/18 09:15 Dose: 325 mg Fluticasone/Vilanterol (Breo Ellipta 100-25 Mcg Inh) 1 puff INH RQ24 [facility] Vancomycin/Sodium Chloride (Vancomycin 1 Gm/Ns 200 Ml) 1 gm in 200 mls @ 133 m ls/hr IVPB Q12H [facility]; Protocol Stop: 11/27/18 06:01 Last Admin: 11/26/18 05:25 Dose: 133 mls/hr Aztreonam 1 gm/ Sodium (Chloride) 100 mls @ 100 mls/hr IVPB Q8H [facility]; Protocol Last Admin: 11/26/18 08:20 Dose: 100 mls/hr Insulin Aspart (Novolog) 0 unit SC ACHS [facility]; Protocol Last Admin: 11/26/18 08:12 Dose: Not Given [facility] Last Admin: 11/26/18 08:21 Dose: 500 mg Montelukast Sodium (Singulair) 10 mg PO [facility] Last Admin: 11/25/18 21:18 Dose: 10 mg Oxycodone HCl (Oxycodone Immediate Release Tab) 10 mg PO Q6 PRN PRN Reason: Pain, moderate (4-7) Last Admin: 11/26/18 03:12 Dose: 10 mg Oxycodone HCl (Oxycontin Extended Release Tab) 20 mg PO Q12 [facility] Last Admin: 11/26/18 09:13 Dose: 20 mg Rivaroxaban (Xarelto) 20 mg PO DAILY [facility] Last Admin: 11/26/18 09:13 Dose: 20 mg Rosuvastatin Calcium (Crestor) 5 mg PO [facility] Last Admin: 11/25/18 21:18 Dose: 5 mg - Labs Labs: 11/24/18 05:19 11/24/18 05:19 - Constitutional Appears: Well, Non-toxic, No Acute Distress - Extremities Exam Extremities Exam: absent: Calf Tenderness Additional comments: LE focused exam: Vasc: DP/PT pulses non-palpable secondary to B/L LE edema. CFT < 3 seconds to all digits. Skin temperature increased B/L from proximal to distal. Severe, pitting edema noted to B/L LE, left worse than right Neuro: Gross intact, protective sensation slightly diminished B/L Derm: Hyperpigmentation noted to B/L legs consistent with hemosiderin deposition. Multiple open indurated ulcerations noted to the left lower extremity. A large ulceration measuring approximately 5cm x 7 cm at the posterior aspect of the lower 1/3 leg with wound base mainly fibrotic. All wound bases are mainly fibrotic with sloughing noted. Weeping drainage with odor noted to the left lower extremity. Erythema present - improved. No abscess or fluctance noted MSK: Pain on palpation of B/L LE , Left >Right - Neurological Exam Neurological Exam: Alert, Awake - Psychiatric Exam Psychiatric exam: Normal Affect, Normal Mood Assessment and Plan - Assessment and Plan (Free Text) Assessment: 58 y/o male seen for bilateral lower extremity edema with left leg nonhealing ulcerations with cellulitis -slightly improved Plan: Patient seen and evaluated at bedside with Dr. Singleton Labs, vitals, chart reviewed- afebrile, WBC 7.0 Wound culture L leg; pseudomonas, enterococcus continue abx per ID, Dr. Vázquez, recommendations appreciated Cleansed ulcerations with saline solution and dressed with xeroform, DSD, kerlix, SAULO Patient may WBAT No surgical intervention by Podiatry at this time Will continue to provide local wound care Recommend patient to go to [facility] for continue treatment of left leg ulcerations with cellulitis Podiatry will continue to follow while patient is in house.
--- NOTE | 2018-11-26 19:09 | CP.PCM.PN ---
Subjective - Date & Time of Evaluation Date of Evaluation: 11/26/18 - Subjective Subjective: patient seen today no nausea no fever no chest pain Objective - Vital Signs/Intake and Output Vital Signs (last 24 hours): Temp Pulse Resp BP Pulse Ox 98.8 F 90 20 135/82 96 11/26/18 15:38 11/26/18 15:38 11/26/18 15:38 11/26/18 17:22 11/26/18 15:38 Intake and Output: 11/26/18 11/27/18 18:59 06:59 Intake Total 700 Balance 700 - Medications Medications: Current Medications Acetaminophen (Tylenol 325mg Tab) 650 mg PO Q6H PRN PRN Reason: FOR MODERATE PAIN WITH OXY 10M Last Admin: 11/26/18 18:36 Dose: 650 mg Albuterol (Ventolin Hfa 90 Mcg/Actuation (8 G)) 2 puff IH RQ6 PRN PRN Reason: Shortness of Breath Albuterol/Ipratropium (Duoneb 3 Mg/0.5 Mg (3 Ml) Ud) 3 ml INH RQ6 [facility] Last Admin: 11/26/18 14:55 Dose: Not Given Allopurinol (Zyloprim) 300 mg PO DAILY [facility] Last Admin: 11/26/18 09:14 Dose: 300 mg Alprazolam (Xanax) 1 mg PO BID PRN PRN Reason: Anxiety Last Admin: 11/26/18 17:30 Dose: 1 mg Aspirin (Ecotrin) 81 mg PO DAILY [facility] Last Admin: 11/26/18 09:14 Dose: 81 mg Carvedilol (Coreg) 12.5 mg PO BID [facility] Last Admin: 11/26/18 17:22 Dose: 12.5 mg Cyanocobalamin (Vitamin B12 100 Mcg Tab) 100 mcg PO DAILY [facility] Last Admin: 11/26/18 09:13 Dose: 100 mcg Ergocalciferol (Drisdol 50,000 Intl Units Cap) 1 cap PO QWK [facility] Famotidine (Pepcid) 20 mg PO BID [facility] Last Admin: 11/26/18 17:22 Dose: 20 mg Ferrous Sulfate (Feosol) 325 mg PO DAILY [facility] Last Admin: 11/26/18 09:15 Dose: 325 mg Fluticasone/Vilanterol (Breo Ellipta 100-25 Mcg Inh) 1 puff INH RQ24 [facility] Vancomycin/Sodium Chloride (Vancomycin 1 Gm/Ns 200 Ml) 1 gm in 200 mls @ 133 mls/hr IVPB Q12H [facility]; Protocol Stop: 11/27/18 06:01 Last Admin: 11/26/18 17:22 Dose: 133 mls/hr Aztreonam 1 gm/ Sodium (Chloride) 100 mls @ 100 mls/hr IVPB Q8H [facility]; Protocol Last Admin: 11/26/18 16:25 Dose: 100 mls/hr Insulin Aspart (Novolog) 0 unit SC ACHS [facility]; Protocol Last Admin: 11/26/18 17:23 Dose: Not Given Metformin HCl (Glucophage) 500 mg PO BIDCC [facility] Last Admin: 11/26/18 17:22 Dose: 500 mg Montelukast Sodium (Singulair) 10 mg PO [facility] Last Admin: 11/25/18 21:18 Dose: 10 mg Oxycodone HCl (Oxycodone Immediate Release Tab) 10 mg PO Q6 PRN PRN Reason: Pain, moderate (4-7) Last Admin: 11/26/18 14:07 Dose: 10 mg Oxycodone HCl (Oxycontin Extended Release Tab) 20 mg PO Q12 [facility] Last Admin: 11/26/18 09:13 Dose: 20 mg Rivaroxaban (Xarelto) 20 mg PO DAILY [facility] Last Admin: 11/26/18 09:13 Dose: 20 mg Rosuvastatin Calcium (Crestor) 5 mg PO [facility] Last Admin: 11/25/18 21:18 Dose: 5 mg - Labs Labs: 11/24/18 05:19 11/24/18 05:19 - Constitutional Appears: Well - Head Exam Head Exam: ATRAUMATIC, NORMAL INSPECTION, NORMOCEPHALIC - Eye Exam Eye Exam: EOMI, Normal appearance, PERRL Pupil Exam: NORMAL ACCOMODATION, PERRL - ENT Exam ENT Exam: Mucous Membranes Moist, Normal Exam - Neck Exam Neck Exam: Full ROM, Normal Inspection. absent: Lymphadenopathy - Respiratory Exam Respiratory Exam: Decreased Breath Sounds - Cardiovascular Exam Cardiovascular Exam: REGULAR RHYTHM, +S1, +S2 - GI/Abdominal Exam GI & Abdominal Exam: Soft, Hypoactive Bowel Sounds - Rectal Exam Rectal Exam: Deferred Assessment and Plan (1) Peripheral vascular disease Status: Acute (2) Left leg cellulitis Status: Acute (3) Ulcer of foot Status: Acute (4) Wound infection Status: Acute (5) Alcohol abuse Status: Acute (6) COPD exacerbation Status: Acute (7) Chronic pain syndrome Status: Acute (8) HTN (hypertension) Status: Acute (9) Venous insufficiency (chronic) (peripheral) Status: Acute - Assessment and Plan (Free Text) Plan: carvedilol crestor albuterol aspirin ferrous sulfate metformin Novolog pepcid motelukast sodium chloride medicine has been reviewed labs and radiology reviewed
[2018-11-27] MEDS: Aztreonam 1 GM in Sodium Chloride 0.9% 100 ML IVPB SCH ×4 (00:21→23:47)
[2018-11-27] MEDS: Albuterol-Ipratrop 3 mg / 0.5 (3 ml) UD INH SCH ×4 (01:54→20:30)
[2018-11-27] MEDS: oxyCODONE 5 mg Immediate Release Tab PO PRN ×3 (03:24→20:20)
[2018-11-27] MEDS: Vancomycin 1 gm/NS 200 ml 1 GM/200 ML BAG IVPB SCH ×2 (05:11→17:40)
[2018-11-27] MEDS: (Novolog) Insulin Aspart, Recombinant 100 u/ml 10 ml vial SC SCH ×4 (07:52→21:07)
[2018-11-27] MEDS: oxyCODONE 20 mg ER Tab (oxyCONTIN) PO SCH ×2 (09:23→21:56)
--- NOTE | 2018-11-27 11:25 | CP.PCM.PN ---
Subjective - Date & Time of Evaluation Date of Evaluation: 11/27/18 - Subjective Subjective: patient examined at bedside no fever, no nausea, no diarrhea Objective - Vital Signs/Intake and Output Vital Signs (last 24 hours): Temp Pulse Resp BP Pulse Ox 97.5 F L 82 20 122/71 100 11/27/18 08:00 11/27/18 08:00 11/27/18 08:00 11/27/18 09:23 11/27/18 08:00 Intake and Output: 11/27/18 11/27/18 06:59 18:59 Intake Total 780 Output Total 601 Balance 179 - Medications Medications: Current Medications Acetaminophen (Tylenol 325mg Tab) 650 mg PO Q6H PRN PRN Reason: FOR MODERATE PAIN WITH OXY 10M Last Admin: 11/26/18 18:36 Dose: 650 mg Albuterol (Ventolin Hfa 90 Mcg/Actuation (8 G)) 2 puff IH RQ6 PRN PRN Reason: Shortness of Breath Albuterol/Ipratropium (Duoneb 3 Mg/0.5 Mg (3 Ml) Ud) 3 ml INH RQ6 [facility] Last Admin: 11/27/18 08:05 Dose: 3 ml Allopurinol (Zyloprim) 300 mg PO DAILY [facility] Last Admin: 11/27/18 09:21 Dose: 300 mg Alprazolam (Xanax) 1 mg PO BID PRN PRN Reason: Anxiety Last Admin: 11/27/18 09:22 Dose: 1 mg Aspirin (Ecotrin) 81 mg PO DAILY [facility] Last Admin: 11/27/18 09:22 Dose: 81 mg Carvedilol (Coreg) 12.5 mg PO BID [facility] Last Admin: 11/27/18 09:23 Dose: 12.5 mg Cyanocobalamin (Vitamin B12 100 Mcg Tab) 100 mcg PO DAILY [facility] Last Admin: 11/27/18 09:21 Dose: 100 mcg Ergocalciferol (Drisdol 50,000 Intl Units Cap) 1 cap PO QWK [facility] Famotidine (Pepcid) 20 mg PO BID [facility] Last Admin: 11/27/18 09:21 Dose: 20 mg Ferrous Sulfate (Feosol) 325 mg PO DAILY [facility] Last Admin: 11/27/18 09:22 Dose: 325 mg Fluticasone/Vilanterol (Breo Ellipta 100-25 Mcg Inh) 1 puff INH RQ24 [facility] Aztreonam 1 gm/ Sodium (Chloride) 100 mls @ 100 mls/hr IVPB Q8H [facility]; Protocol Last Admin: 11/27/18 09:01 Dose: 100 mls/hr Insulin Aspart (Novolog) 0 unit SC ACHS [facility]; Protocol Last Admin: 11/27/18 07:52 Dose: Not Given Metformin HCl (Glucophage) 500 mg PO BIDCC [facility] Last Admin: 11/27/18 09:01 Dose: 500 mg Montelukast Sodium (Singulair) 10 mg PO HS [facility] Last Admin: 11/26/18 21:28 Dose: 10 mg Oxycodone HCl (Oxycodone Immediate Release Tab) 10 mg PO Q6 PRN PRN Reason: Pain, moderate (4-7) Last Admin: 11/27/18 03:24 Dose: 10 mg Oxycodone HCl (Oxycontin Extended Release Tab) 20 mg PO Q12 [facility] Last Admin: 11/27/18 09:23 Dose: 20 mg Rivaroxaban (Xarelto) 20 mg PO DAILY [facility] Last Admin: 11/27/18 09:22 Dose: 20 mg Rosuvastatin Calcium (Crestor) 5 mg PO [facility] Last Admin: 11/26/18 21:28 Dose: 5 mg - Labs Labs: 11/24/18 05:19 11/24/18 05:19 - Constitutional Appears: Well - Head Exam Head Exam: ATRAUMATIC, NORMAL INSPECTION, NORMOCEPHALIC - Eye Exam Eye Exam: EOMI, Normal appearance, PERRL Pupil Exam: NORMAL ACCOMODATION, PERRL - ENT Exam ENT Exam: Mucous Membranes Moist, Normal Exam - Neck Exam Neck Exam: Full ROM, Normal Inspection. absent: Lymphadenopathy - Respiratory Exam Respiratory Exam: Decreased Breath Sounds - Cardiovascular Exam Cardiovascular Exam: REGULAR RHYTHM, +S1, +S2 - GI/Abdominal Exam GI & Abdominal Exam: Soft, Diminished Bowel Sounds - Rectal Exam Rectal Exam: Deferred Assessment and Plan (1) Peripheral vascular disease Status: Acute (2) Left leg cellulitis Status: Acute (3) Ulcer of foot Status: Acute (4) Wound infection Status: Acute (5) Alcohol abuse Status: Acute (6) COPD exacerbation Status: Acute (7) Chronic pain syndrome Status: Acute (8) HTN (hypertension) Status: Acute (9) Venous insufficiency (chronic) (peripheral) Status: Acute - Assessment and Plan (Free Text) Plan: treatment plan discussed with staff medications as followed vitals checked labs reviwed Acetaminophen Albuterol DuoNeb Zyloprim GEN next Nicotine Coreg Drisdol Feosol Brio Ellipta NovoLog Glucophage Singulair Oxycodone immediate release Oxycodone extended release Xarelto Crestor
--- NOTE | 2018-11-27 11:32 | CP.PCM.PN ---
Subjective - Date & Time of Evaluation Date of Evaluation: 11/27/18 Time of Evaluation: 08:00 - Subjective Subjective: 58M seen and evaluated at bedside with attending Dr. Singleton for left lower extremity wounds with cellulitis. Patient is AA0x3 and NAD. Denies overnight events. Patient was out of chair walking to bed. Denies of pain to the left lower extremity at this time. Reports is doing well. Patient denies nausea, fever, shortness of breath, chest pains or chills. Objective - Vital Signs/Intake and Output Vital Signs (last 24 hours): Temp Pulse Resp BP Pulse Ox 97.5 F L 82 20 122/71 100 11/27/18 08:00 11/27/18 08:00 11/27/18 08:00 11/27/18 09:23 11/27/18 08:00 Intake and Output: 11/27/18 11/27/18 06:59 18:59 Intake Total 780 Output Total 601 Balance 179 - Medications Medications: Current Medications Acetaminophen (Tylenol 325mg Tab) 650 mg PO Q6H PRN PRN Reason: FOR MODERATE PAIN WITH OXY 10M Last Admin: 11/26/18 18:36 Dose: 650 mg Albuterol (Ventolin Hfa 90 Mcg/Actuation (8 G)) 2 puff IH RQ6 PRN PRN Reason: Shortness of Breath Albuterol/Ipratropium (Duoneb 3 Mg/0.5 Mg (3 Ml) Ud) 3 ml INH RQ6 [facility] Last Admin: 11/27/18 08:05 Dose: 3 ml Allopurinol (Zyloprim) 300 mg PO DAILY [facility] Last Admin: 11/27/18 09:21 Dose: 300 mg Alprazolam (Xanax) 1 mg PO BID PRN PRN Reason: Anxiety Last Admin: 11/27/18 09:22 Dose: 1 mg Aspirin (Ecotrin) 81 mg PO DAILY [facility] Last Admin: 11/27/18 09:22 Dose: 81 mg Carvedilol (Coreg) 12.5 mg PO BID [facility] Last Admin: 11/27/18 09:23 Dose: 12.5 mg Cyanocobalamin (Vitamin B12 100 Mcg Tab) 100 mcg PO DAILY [facility] Last Admin: 11/27/18 09:21 Dose: 100 mcg Ergocalciferol (Drisdol 50,000 Intl Units Cap) 1 cap PO QWK [facility] Famotidine (Pepcid) 20 mg PO BID [facility] Last Admin: 11/27/18 09:21 Dose: 20 mg Ferrous Sulfate (Feosol) 325 mg PO DAILY [facility] Last Admin: 11/27/18 09:22 Dose: 325 mg Fluticasone/Vilanterol (Breo Ellipta 100-25 Mcg Inh) 1 puff INH RQ24 [facility] Aztreonam 1 gm/ Sodium (Chloride) 100 mls @ 100 mls/hr IVPB Q8H [facility]; Protocol Last Admin: 11/27/18 09:01 Dose: 100 mls/hr Insulin Aspart (Novolog) 0 unit SC ACHS [facility]; Protocol Last Admin: 11/27/18 07:52 Dose: Not Given [facility]) [facility] Last Admin: 11/27/18 09:01 Dose: 500 mg Montelukast Sodium (Singulair) 10 mg PO [facility] Last Admin: 11/26/18 21:28 Dose: 10 mg Oxycodone HCl (Oxycodone Immediate Release Tab) 10 mg PO Q6 PRN PRN Reason: Pain, moderate (4-7) Last Admin: 11/27/18 03:24 Dose: 10 mg Oxycodone HCl (Oxycontin Extended Release Tab) 20 mg PO Q12 [facility] Last Admin: 11/27/18 09:23 Dose: 20 mg Rivaroxaban (Xarelto) 20 mg PO DAILY [facility] Last Admin: 11/27/18 09:22 Dose: 20 mg Rosuvastatin Calcium (Crestor) 5 mg PO [facility] Last Admin: 11/26/18 21:28 Dose: 5 mg - Labs Labs: 11/24/18 05:19 11/24/18 05:19 - Constitutional Appears: Well - Head Exam Head Exam: ATRAUMATIC, NORMAL INSPECTION, NORMOCEPHALIC - Eye Exam Eye Exam: EOMI, Normal appearance, PERRL Pupil Exam: NORMAL ACCOMODATION, PERRL - ENT Exam ENT Exam: Mucous Membranes Moist, Normal Exam - Neck Exam Neck Exam: Full ROM, Normal Inspection. absent: Lymphadenopathy - Respiratory Exam Respiratory Exam: Clear to Ausculation Bilateral, NORMAL BREATHING PATTERN - Cardiovascular Exam Cardiovascular Exam: REGULAR RHYTHM, +S1, +S2. absent: Murmur - GI/Abdominal Exam GI & Abdominal Exam: Soft, Normal Bowel Sounds. absent: Tenderness - Rectal Exam Rectal Exam: Deferred - Exam Exam: NORMAL INSPECTION - Extremities Exam Extremities Exam: Full ROM. absent: Joint Swelling Additional comments: exrtensive venous stasis ulcers and infection of RLE - Back Exam Back Exam: NORMAL INSPECTION - Neurological Exam Neurological Exam: Alert, Awake, CN II-XII Intact, Normal Gait, Oriented x3 - Psychiatric Exam Psychiatric exam: Normal Affect, Normal Mood - Skin Skin Exam: Dry, Intact, Normal Color, Warm Assessment and Plan (1) Left leg cellulitis Status: Acute (2) COPD (chronic obstructive pulmonary disease) Status: Acute (3) Cellulitis Status: Acute (4) HTN (hypertension) Status: Acute (5) Venous insufficiency (chronic) (peripheral) Status: Acute (6) MRSA (methicillin resistant Staphylococcus aureus) infection Status: Acute - Assessment and Plan (Free Text) Assessment: severe venous stasis ulcers, cellulitis RLE + for enterococcua and Pseudomonas cont IV antibiotics prognosis guarded Plan: cont rx 3-6 weeks needs EZEQUIEL
--- NOTE | 2018-11-27 13:51 | CP.PCM.PN ---
Subjective - Date & Time of Evaluation Date of Evaluation: 11/27/18 Time of Evaluation: 12:00 - Subjective Subjective: Podiatry Progress Note- Dr. Singleton 58M seen and evaluated at bedside for left lower extremity wounds with cellulitis - improving. Patient is sitting in chair, in NAD. Denies overnight events. Denies of pain to the left lower extremity at this time. Patient denies nausea, fever, shortness of breath, chest pains or chills. Objective - Vital Signs/Intake and Output Vital Signs (last 24 hours): Temp Pulse Resp BP Pulse Ox 97.5 F L 82 20 122/71 100 11/27/18 08:00 11/27/18 08:00 11/27/18 08:00 11/27/18 09:23 11/27/18 08:00 Intake and Output: 11/27/18 11/27/18 06:59 18:59 Intake Total 780 Output Total 601 Balance 179 - Medications Medications: Current Medications Acetaminophen (Tylenol 325mg Tab) 650 mg PO Q6H PRN PRN Reason: FOR MODERATE PAIN WITH OXY 10M Last Admin: 11/26/18 18:36 Dose: 650 mg Albuterol (Ventolin Hfa 90 Mcg/Actuation (8 G)) 2 puff IH RQ6 PRN PRN Reason: Shortness of Breath Albuterol/Ipratropium (Duoneb 3 Mg/0.5 Mg (3 Ml) Ud) 3 ml INH RQ6 [facility] Last Admin: 11/27/18 08:05 Dose: 3 ml Allopurinol (Zyloprim) 300 mg PO DAILY [facility] Last Admin: 11/27/18 09:21 Dose: 300 mg Alprazolam (Xanax) 1 mg PO BID PRN PRN Reason: Anxiety Last Admin: 11/27/18 09:22 Dose: 1 mg Aspirin (Ecotrin) 81 mg PO DAILY [facility] Last Admin: 11/27/18 09:22 Dose: 81 mg Carvedilol (Coreg) 12.5 mg PO BID [facility] Last Admin: 11/27/18 09:23 Dose: 12.5 mg Cyanocobalamin (Vitamin B12 100 Mcg Tab) 100 mcg PO DAILY [facility] Last Admin: 11/27/18 09:21 Dose: 100 mcg Ergocalciferol (Drisdol 50,000 Intl Units Cap) 1 cap PO QWK [facility] Famotidine (Pepcid) 20 mg PO BID [facility] Last Admin: 11/27/18 09:21 Dose: 20 mg Ferrous Sulfate (Feosol) 325 mg PO DAILY [facility] Last Admin: 11/27/18 09:22 Dose: 325 mg Fluticasone/Vilanterol (Breo Ellipta 100-25 Mcg Inh) 1 puff INH RQ24 [facility] Aztreonam 1 gm/ Sodium (Chloride) 100 mls @ 100 mls/hr IVPB Q8H [facility]; Protocol Last Admin: 11/27/18 09:01 Dose: 100 mls/hr Vancomycin/Sodium Chloride (Vancomycin 1 Gm/Ns 200 Ml) 1 gm in 200 mls @ 133.333 mls/hr IVPB Q12H [facility]; Protocol Stop: 12/02/18 17:01 Insulin Aspart (Novolog) 0 unit SC ACHS [facility]; Protocol Last Admin: 11/27/18 11:46 Dose: Not Given [facility] ([facility]) [facility] Last Admin: 11/27/18 09:01 Dose: 500 mg Montelukast Sodium (Singulair) 10 mg PO [facility] Last Admin: 11/26/18 21:28 Dose: 10 mg Oxycodone HCl (Oxycodone Immediate Release Tab) 10 mg PO Q6 PRN PRN Reason: Pain, moderate (4-7) Last Admin: 11/27/18 03:24 Dose: 10 mg Oxycodone HCl (Oxycontin Extended Release Tab) 20 mg PO Q12 [facility] Last Admin: 11/27/18 09:23 Dose: 20 mg Rivaroxaban (Xarelto) 20 mg PO DAILY [facility] Last Admin: 11/27/18 09:22 Dose: 20 mg Rosuvastatin Calcium (Crestor) 5 mg PO [facility] Last Admin: 11/26/18 21:28 Dose: 5 mg - Labs Labs: 11/24/18 05:19 11/24/18 05:19 - Constitutional Appears: Well, Non-toxic, No Acute Distress - Extremities Exam Extremities Exam: absent: Calf Tenderness Additional comments: LE focused exam: Vasc: DP/PT pulses non-palpable secondary to B/L LE edema. CFT < 3 seconds to all digits. Skin temperature increased B/L from proximal to distal. Severe, pitting edema noted to B/L LE, left worse than right Neuro: Gross intact, protective sensation slightly diminished B/L Derm: Hyperpigmentation noted to B/L legs consistent with hemosiderin deposition. Multiple open indurated ulcerations noted to the left lower extremity. A large ulceration measuring approximately 5cm x 7 cm at the posterior aspect of the lower 1/3 leg with wound base mainly fibrotic. All wound bases are mainly fibrotic with sloughing noted. Weeping drainage with odor noted to the left lower extremity. Erythema present - improved. No abscess or fluctance noted MSK: Pain on palpation of B/L LE , Left >Right - Neurological Exam Neurological Exam: Alert, Awake, Oriented x3 - Psychiatric Exam Psychiatric exam: Normal Affect, Normal Mood Assessment and Plan - Assessment and Plan (Free Text) Assessment: 58 y/o male seen for bilateral lower extremity edema with left leg nonhealing ulcerations with cellulitis -slightly improved Plan: Patient seen and evaluated at bedside with Dr. Singleton Labs, vitals, chart reviewed- afebrile, absent leukocytosis Wound culture L leg; pseudomonas, enterococcus continue abx per ID, Dr. Vázquez, recommendations appreciated Cleansed ulcerations with saline solution and dressed with xeroform, DSD, ker lix, SAULO Patient may WBAT No surgical intervention by Podiatry at this time Will continue to provide local wound care Recommend patient to go to [facility] for continue treatment of left leg ulcerations with cellulitis Podiatry will continue to follow while patient is in house.
[2018-11-28] MEDS: oxyCODONE 5 mg Immediate Release Tab PO PRN ×2 (02:28→09:36)
[2018-11-28] MEDS: Albuterol-Ipratrop 3 mg / 0.5 (3 ml) UD INH SCH ×4 (03:11→19:01)
[2018-11-28] MEDS: Vancomycin 1 gm/NS 200 ml 1 GM/200 ML BAG IVPB SCH ×2 (04:01→17:33)
[2018-11-28 07:29] LABS: BASO % 0.8 % (0.0-2.0); EOS # 0.2 K/uL (0.0-0.7); EOS % 3.7 % (0.0-4.0); HEMOGLOBIN 7.7 g/dL (12.0-18.0); LYMPH # 1.7 K/uL (1.0-4.3); LYMPH % 38.7 % (20.0-40.0); MEAN CELL VOLUME 91.9 fL (80.0-94.0); MEAN CORPUSCULAR HEMOGLOBIN 29.7 pg (27.0-31.0); MEAN CORPUSCULAR HGB CONC 32.3 g/dL (33.0-37.0); MONO # 0.4 K/uL (0.0-0.8); MONO % 9.5 % (0.0-10.0); NEUT % 47.3 % (50.0-75.0); NRBC % 0.1 % (0.0-2.0); RBC 2.6 Mil/uL (4.40-5.90); RED CELL DISTRIBUTION WIDTH 16.2 % (11.5-14.5); WHITE BLOOD COUNT 4.3 K/uL (4.8-10.8)
[2018-11-28 07:44] LABS: BLOOD UREA NITROGEN 10 mg/dL (9-20); GFR NON-AFRICAN AMERICAN > 60
[2018-11-28] MEDS: (Novolog) Insulin Aspart, Recombinant 100 u/ml 10 ml vial SC SCH ×4 (08:08→21:58)
[2018-11-28] MEDS: Aztreonam 1 GM in Sodium Chloride 0.9% 100 ML IVPB SCH ×2 (08:11→16:30)
[2018-11-28] MEDS: oxyCODONE 20 mg ER Tab (oxyCONTIN) PO SCH ×2 (09:28→21:58)
[2018-11-28] MEDS ORDERED: Ergocalciferol 50,000 Intl Units Cap PO SCH (10:00)
--- NOTE | 2018-11-28 13:37 | CP.PCM.PN ---
Subjective - Date & Time of Evaluation Date of Evaluation: 11/28/18 Time of Evaluation: 13:33 - Subjective Subjective: Podiatry Progress Note- Dr. Singleton 58M seen and evaluated at bedside for left lower extremity wounds with cellulitis - improving with Dr. Singleton at bedside.. Patient is sitting in chair, in NAD. Denies overnight events. Denies of pain to the left lower extremity at this time. Patient reports has been trying to walk back and forth in his room to get exercise with the walker. Patient denies nausea, fever, shortness of breath, chest pains or chills. Objective - Vital Signs/Intake and Output Vital Signs (last 24 hours): Temp Pulse Resp BP Pulse Ox 97.7 F 89 20 117/70 97 11/28/18 07:45 11/28/18 07:45 11/28/18 07:45 11/28/18 09:27 11/28/18 07:45 Intake and Output: 11/28/18 11/28/18 06:59 18:59 Intake Total 830 Output Total 500 Balance 330 - Medications Medications: Current Medications Acetaminophen (Tylenol 325mg Tab) 650 mg PO Q6H PRN PRN Reason: FOR MODERATE PAIN WITH OXY 10M Last Admin: 11/27/18 23:48 Dose: 650 mg Albuterol (Ventolin Hfa 90 Mcg/Actuation (8 G)) 2 puff IH RQ6 PRN PRN Reason: Shortness of Breath Albuterol/Ipratropium (Duoneb 3 Mg/0.5 Mg (3 Ml) Ud) 3 ml INH RQ6 [facility] Last Admin: 11/28/18 08:30 Dose: 3 ml Allopurinol (Zyloprim) 300 mg PO DAILY [facility] Last Admin: 11/28/18 09:27 Dose: 300 mg Alprazolam (Xanax) 1 mg PO BID PRN PRN Reason: Anxiety Last Admin: 11/27/18 23:48 Dose: 1 mg Aspirin (Ecotrin) 81 mg PO DAILY [facility] Last Admin: 11/28/18 09:27 Dose: 81 mg Carvedilol (Coreg) 12.5 mg PO BID [facility] Last Admin: 11/28/18 09:27 Dose: 12.5 mg Cyanocobalamin (Vitamin B12 100 Mcg Tab) 100 mcg PO DAILY [facility] Last Admin: 11/28/18 09:28 Dose: 100 mcg Ergocalciferol (Drisdol 50,000 Intl Units Cap) 1 cap PO QWK [facility] Last Admin: 11/28/18 09:36 Dose: 1 cap Famotidine (Pepcid) 20 mg PO BID [facility] Last Admin: 11/28/18 09:28 Dose: 20 mg Ferrous Sulfate (Feosol) 325 mg PO DAILY [facility] Last Admin: 11/28/18 09:27 Dose: 325 mg Fluticasone/Vilanterol (Breo Ellipta 100-25 Mcg Inh) 1 puff INH RQ24 [facility] Aztreonam 1 gm/ Sodium (Chloride) 100 mls @ 100 mls/hr IVPB Q8H [facility]; Protocol Last Admin: 11/28/18 08:11 Dose: 100 mls/hr Vancomycin/Sodium Chloride (Vancomycin 1 Gm/Ns 200 Ml) 1 gm in 200 mls @ 133.333 mls/hr IVPB Q12H [facility]; Protocol Stop: 12/02/18 17:01 Last Admin: 11/28/18 04:01 Dose: 133.333 mls/hr Insulin Aspart (Novolog) 0 unit SC ACHS [facility]; Protocol Last Admin: 11/28/18 12:06 Dose: Not Given Metformin HCl (Glucophage) 500 mg PO BIDCC [facility] Last Admin: 11/28/18 08:09 Dose: 500 mg Montelukast Sodium (Singulair) 10 mg PO HS [facility] Last Admin: 11/27/18 21:06 Dose: 10 mg Oxycodone HCl (Oxycodone Immediate Release Tab) 10 mg PO Q6 PRN PRN Reason: Pain, moderate (4-7) Last Admin: 11/28/18 09:36 Dose: 10 mg Oxycodone HCl (Oxycontin Extended Release Tab) 20 mg PO Q12 [facility] Last Admin: 11/28/18 09:28 Dose: 20 mg Rivaroxaban (Xarelto) 20 mg PO DAILY [facility] Last Admin: 11/28/18 09:27 Dose: 20 mg Rosuvastatin Calcium (Crestor) 5 mg PO HS [facility] Last Admin: 11/27/18 21:06 Dose: 5 mg - Labs Labs: 11/28/18 07:19 11/28/18 07:19 - Constitutional Appears: Well, Non-toxic, No Acute Distress - Extremities Exam Extremities Exam: absent: Calf Tenderness Additional comments: LE focused exam: Vasc: DP/PT pulses non-palpable secondary to B/L LE edema. CFT < 3 seconds to all digits. Skin temperature increased B/L from proximal to distal. Severe, pitting edema noted to B/L LE, left worse than right Neuro: Gross intact, protective sensation slightly diminished B/L Derm: Hyperpigmentation noted to B/L legs consistent with hemosiderin deposition. Multiple open indurated ulcerations noted to the left lower extremity. A large ulceration measuring approximately 5cm x 7 cm at the pos terior aspect of the lower 1/3 leg with wound base mainly fibrotic. All wound bases are mainly fibrotic with sloughing noted. Weeping drainage with odor noted to the left lower extremity. Erythema present - improved. No abscess or fluctance noted MSK: Pain on palpation of B/L LE , Left >Right - Neurological Exam Neurological Exam: Alert, Awake, Oriented x3 - Psychiatric Exam Psychiatric exam: Normal Affect, Normal Mood Assessment and Plan - Assessment and Plan (Free Text) Assessment: 58 y/o male seen for bilateral lower extremity edema with left leg nonhealing ulcerations with cellulitis, improving Plans to go to the OR tomorrow at 8AM for debridement of left leg wound with application of wound Plan: Patient seen and evaluated at bedside with Dr. Singleton Labs, vitals, chart reviewed- afebrile, absent leukocytosis Wound culture L leg; pseudomonas, enterococcus MRSA detected on 11/23/18 Left leg continue abx per ID, Dr. Vázquez, recommendations appreciated Cleansed ulcerations with saline solution and dressed with xeroform, DSD, kerlix, SAULO Patient may WBAT Dr. Singleton plans on bringing patient to the OR at 8:00AM for a debridement of left and application of graft with pulse lavage pending medical and cardio clearance Dr. Cardenas dater assembler consulted Ordered EKG Please provide medical and cardiac clearance, thank you Explained to patient in detail regarding surgical intervention inclduing benefits, complications, alternatives and risks, patient understands and agree. All questions/concerns addressed. Patient signed the consent for debridement of left and application of graft pulse lavage pending medical and cardio clearance Recommend patient to go to [facility] for continue treatment of left leg ulcerations with cellulitis -improving Podiatry will continue to follow while patient is in house.
[2018-11-28 14:28] LABS: BLOOD UREA NITROGEN 9 mg/dL (9-20); CALCIUM 9.3 mg/dl (8.6-10.4); GFR NON-AFRICAN AMERICAN > 60
[2018-11-28 15:03] LABS: HEMOGLOBIN 8.2 g/dL (12.0-18.0); MEAN CELL VOLUME 90.3 fL (80.0-94.0); MEAN CORPUSCULAR HEMOGLOBIN 29.2 pg (27.0-31.0); MEAN CORPUSCULAR HGB CONC 32.4 g/dL (33.0-37.0); MEAN PLATELET VOLUME 6.7 fL (7.2-11.7); RBC 2.8 Mil/uL (4.40-5.90); RED CELL DISTRIBUTION WIDTH 16.4 % (11.5-14.5); WHITE BLOOD COUNT 5.3 K/uL (4.8-10.8)
--- NOTE | 2018-11-28 16:19 | CP.PCM.CON ---
History of Present Illness - History of Present Illness History of Present Illness: Vascular Surgery Consult Note HPI: Patient is a 58 year old male with history of bladder cancer, DM, HTN, emphysema who was sent in by [employer] Dr. Singleton for left lower extremity cellulitis that failed outpatient treatment. Patient states that the wounds worsened after visiting nurse wrapped his wounds too tightly. He states that he has never had any stents placed in the vessels of his lower extremities. He denies fevers, chills, nausea, chest pain, shortness of breath, vomiting. Consult placed for Dr. Berger to evaluate for vascular disease. PMH: COPD, CHF, bladder cancer, HTN, DM, TONIO, emphysema, chronic bilateral hip pain PSH: left elbow, left knee, left ORIF shoulder Allergies: Levofloxacin, Moxifloxacin, Cefuroxime, Cephalexin, Clarithromycin Social hx: smoked 2ppd for 25 years, quit many year ago. denies drug use. intermittent alcohol use. Past Patient History - Infectious Disease Hx of Infectious Diseases: None - Tetanus Immunizations Tetanus Immunization: Unknown - Past Medical History & Family History Past Medical History?: Yes - Past Social History Smoking Status: Former Smoker - CARDIAC Hx Congestive Heart Failure: Yes Hx Hypertension: Yes - PULMONARY Hx Chronic Obstructive Pulmonary Disease (COPD): Yes - NEUROLOGICAL Hx Neurological Disorder: No - HEENT Hx HEENT Problems: Yes - RENAL Hx Chronic Kidney Disease: Yes - ENDOCRINE/METABOLIC Hx Diabetes Mellitus Type 2: Yes - HEMATOLOGICAL/ONCOLOGICAL Hx Cancer: No - INTEGUMENTARY Hx Dermatological Problems: Yes (DISCOLORED LOWER EXTREMITIES ) - MUSCULOSKELETAL/RHEUMATOLOGICAL Hx Arthritis: Yes (BACK, 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; BL HIP) - GASTROINTESTINAL Hx Gastritis: Yes (FROM MEDS) - GENITOURINARY/GYNECOLOGICAL Hx Genitourinary Disorders: Yes Hx Bladder Cancer: Yes Hx Hematuria: Yes Other/Comment: BLADDER CANCER - PSYCHIATRIC Hx Substance Use: No - SURGICAL HISTORY Hx Mastectomy: No - ANESTHESIA Hx Anesthesia: Yes Hx Anesthesia Reactions: Yes (DIFFICULTY TO AROUSE BUT WAS DISCHARGED) Meds Allergies/Adverse Reactions: Allergies Allergy/AdvReac Type Severity Reaction Status Date / Time cefuroxime Allergy RASH Verified 10/01/18 11:25 cephalexin Allergy RASH Verified 10/01/18 11:25 clarithromycin Allergy RASH Verified 10/01/18 11:25 levofloxacin Allergy RASH Verified 10/01/18 11:25 moxifloxacin Allergy RASH Verified 10/01/18 11:25 - Medications Medications: Current Medications Acetaminophen (Tylenol 325mg Tab) 650 mg PO Q6H PRN PRN Reason: FOR MODERATE PAIN WITH OXY 10M Last Admin: 11/27/18 23:48 Dose: 650 mg Albuterol (Ventolin Hfa 90 Mcg/Actuation (8 G)) 2 puff IH RQ6 PRN PRN Reason: Shortness of Breath Albuterol/Ipratropium (Duoneb 3 Mg/0.5 Mg (3 Ml) Ud) 3 ml INH RQ6 [facility] Last Admin: 11/28/18 13:20 Dose: 3 ml Allopurinol (Zyloprim) 300 mg PO DAILY [facility] Last Admin: 11/28/18 09:27 Dose: 300 mg Alprazolam (Xanax) 1 mg PO BID PRN PRN Reason: Anxiety Last Admin: 11/27/18 23:48 Dose: 1 mg Aspirin (Ecotrin) 81 mg PO DAILY [facility] Last Admin: 11/28/18 09:27 Dose: 81 mg Carvedilol (Coreg) 12.5 mg PO BID [facility] Last Admin: 11/28/18 09:27 Dose: 12.5 mg Cyanocobalamin (Vitamin B12 100 Mcg Tab) 100 mcg PO DAILY [facility] Last Admin: 11/28/18 09:28 Dose: 100 mcg Ergocalciferol (Drisdol 50,000 Intl Units Cap) 1 cap PO QWK [facility] Last Admin: 11/28/18 09:36 Dose: 1 cap Famotidine (Pepcid) 20 mg PO BID [facility] Last Admin: 11/28/18 09:28 Dose: 20 mg Ferrous Sulfate (Feosol) 325 mg PO DAILY [facility] Last Admin: 11/28/18 09:27 Dose: 325 mg Fluticasone/Vilanterol (Breo Ellipta 100-25 Mcg Inh) 1 puff INH RQ24 [facility] Aztreonam 1 gm/ Sodium (Chloride) 100 mls @ 100 mls/hr IVPB Q8H [facility]; Protocol Last Admin: 11/28/18 08:11 Dose: 100 mls/hr Vancomycin/Sodium Chloride (Vancomycin 1 Gm/Ns 200 Ml) 1 gm in 200 mls @ 133.333 mls/hr IVPB Q12H [facility]; Protocol Stop: 12/02/18 17:01 Last Admin: 11/28/18 04:01 Dose: 133.333 mls/hr Insulin Aspart (Novolog) [address] [facility]; Protocol Last Admin: 11/28/18 12:06 Dose: Not Given Metformin HCl (Glucophage) 500 mg PO BIDCC [facility] Last Admin: 11/28/18 08:09 Dose: 500 mg Montelukast Sodium (Singulair) 10 mg PO [facility] Last Admin: 11/27/18 21:06 Dose: 10 mg Rivaroxaban (Xarelto) 20 mg PO DAILY [facility] Last Admin: 11/28/18 09:27 Dose: 20 mg Rosuvastatin Calcium (Crestor) 5 mg PO [facility] Last Admin: 11/27/18 21:06 Dose: 5 mg Physical Exam - Constitutional Appears: Well, No Acute Distress - Head Exam Head Exam: ATRAUMATIC, NORMOCEPHALIC - Eye Exam Eye Exam: EOMI, PERRL - Respiratory Exam Respiratory Exam: NORMAL BREATHING PATTERN - Cardiovascular Exam Cardiovascular Exam: REGULAR RHYTHM, +S1, +S2 - GI/Abdominal Exam GI & Abdominal Exam: Normal Bowel Sounds, Soft - Extremities Exam Additional comments: Multiple chronic wounds of LLE Dopplerable pulses of left lower extremity unable to palpate pulses secondary to edema Dopplerable pulses - Neurological Exam Neurological exam: Alert, Oriented x3 Results - Vital Signs Recent Vital Signs: Last Vital Signs Temp 97.7 F 11/28/18 07:45 Pulse 89 11/28/18 07:45 Resp 20 11/28/18 07:45 BP 117/70 11/28/18 09:27 Pulse Ox 97 11/28/18 07:45 - Labs Result Diagrams: 11/28/18 14:59 11/28/18 14:06 Labs: Laboratory Results - last 24 hr 11/27/18 11/27/18 11/28/18 16:05 21:03 06:59 WBC RBC Hgb Hct MCV MCH MCHC RDW Plt Count MPV Neut % (Auto) Lymph % (Auto) [place] % (Auto) Eos % (Auto) Baso % (Auto) Neut # (Auto) Lymph # (Auto) [place] # (Auto) Eos # (Auto) Baso # (Auto) Sodium Potassium Chloride Carbon Dioxide Anion Gap BUN Creatinine Est GFR ( Amer) Est GFR (Non-Af Amer) POC Glucose (mg/dL) 112 H 105 108 Random Glucose Calcium 11/28/18 11/28/18 11/28/18 07:19 07:19 11:00 WBC 4.3 L RBC 2.60 L Hgb 7.7 L Hct 23.9 L MCV 91.9 MCH 29.7 MCHC 32.3 L RDW 16.2 H Plt Count 189 MPV 7.0 L Neut % (Auto) 47.3 L Lymph % (Auto) 38.7 [place] % (Auto) 9.5 Eos % (Auto) 3.7 Baso % (Auto) 0.8 Neut # (Auto) 2.0 Lymph # (Auto) 1.7 [place] # (Auto) 0.4 Eos # (Auto) 0.2 Baso # (Auto) 0.0 Sodium 135 Potassium 3.8 Chloride 102 Carbon Dioxide 29 Anion Gap 8 L BUN 10 Creatinine 0.6 L Est GFR ( Amer) > 60 Est GFR (Non-Af Amer) > 60 POC Glucose (mg/dL) 150 H Random Glucose 98 Calcium 9.0 11/28/18 11/28/18 14:06 14:59 WBC 5.3 RBC 2.80 L Hgb 8.2 L Hct 25.3 L MCV 90.3 MCH 29.2 MCHC 32.4 L RDW 16.4 H Plt Count 205 MPV 6.7 L Neut % (Auto) Lymph % (Auto) [place] % (Auto) Eos % (Auto) Baso % (Auto) Neut # (Auto) Lymph # (Auto) [place] # (Auto) Eos # (Auto) Baso # (Auto) Sodium 135 Potassium 4.1 Chloride 100 Carbon Dioxide 28 Anion Gap 11 BUN 9 Creatinine 0.6 L Est GFR ( Amer) > 60 Est GFR (Non-Af Amer) > 60 POC Glucose (mg/dL) Random Glucose 121 H D Calcium 9.3 Assessment & Plan - Assessment and Plan (Free Text) Assessment: 58 year old male with history of bladder cancer, CHF, HTN, DM who presented for worsening wounds of left lower extremity. Plan: CT angio from 10/09/18 - long segment diffuse moderate to severe stenosis of posterior tibial artery bilaterally, with patent peroneal, and anterior tibial artery - Further management by Podiatry Mirta Escobar, PGY1
[2018-11-28] MEDS: oxyCODONE 10 mg Immediate Release Tab PO PRN (17:09)
--- NOTE | 2018-11-28 19:27 | CP.PCM.PN ---
Subjective - Date & Time of Evaluation Date of Evaluation: 11/28/18 - Subjective Subjective: patient denies vomiting, nausea, diarrhea, SOB, fever Objective - Vital Signs/Intake and Output Vital Signs (last 24 hours): Temp Pulse Resp BP Pulse Ox 98 F 81 20 138/70 97 11/28/18 16:42 11/28/18 16:42 11/28/18 16:42 11/28/18 17:09 11/28/18 16:42 Intake and Output: 11/28/18 11/29/18 18:59 06:59 Intake Total 340 Balance 340 - Medications Medications: Current Medications Acetaminophen (Tylenol 325mg Tab) 650 mg PO Q6H PRN PRN Reason: FOR MODERATE PAIN WITH OXY 10M Last Admin: 11/27/18 23:48 Dose: 650 mg Albuterol (Ventolin Hfa 90 Mcg/Actuation (8 G)) 2 puff IH RQ6 PRN PRN Reason: Shortness of Breath Albuterol/Ipratropium (Duoneb 3 Mg/0.5 Mg (3 Ml) Ud) 3 ml INH RQ6 [facility] Last Admin: 11/28/18 19:01 Dose: 3 ml Allopurinol (Zyloprim) 300 mg PO DAILY [facility] Last Admin: 11/28/18 09:27 Dose: 300 mg Aspirin (Ecotrin) 81 mg PO DAILY [facility] Last Admin: 11/28/18 09:27 Dose: 81 mg Carvedilol (Coreg) 12.5 mg PO BID [facility] Last Admin: 11/28/18 17:09 Dose: 12.5 mg Cyanocobalamin (Vitamin B12 100 Mcg Tab) 100 mcg PO DAILY [facility] Last Admin: 11/28/18 09:28 Dose: 100 mcg Ergocalciferol (Drisdol 50,000 Intl Units Cap) 1 cap PO QWK [facility] Last Admin: 11/28/18 09:36 Dose: 1 cap Famotidine (Pepcid) 20 mg PO BID [facility] Last Admin: 11/28/18 17:08 Dose: 20 mg Ferrous Sulfate (Feosol) 325 mg PO DAILY [facility] Last Admin: 11/28/18 09:27 Dose: 325 mg Fluticasone/Vilanterol (Breo Ellipta 100-25 Mcg Inh) 1 puff INH RQ24 [facility] Aztreonam 1 gm/ Sodium (Chloride) 100 mls @ 100 mls/hr IVPB Q8H [facility]; Protocol Last Admin: 11/28/18 16:30 Dose: 100 mls/hr Vancomycin/Sodium Chloride (Vancomycin 1 Gm/Ns 200 Ml) 1 gm in 200 mls @ 133.333 mls/hr IVPB Q12H [facility]; Protocol Stop: 12/02/18 17:01 Last Admin: 11/28/18 17:33 Dose: 133.333 mls/hr Insulin Aspart (Novolog) 0 unit SC ACHS [facility]; Protocol Last Admin: 11/28/18 17:10 Dose: Not Given Metformin HCl (Glucophage) 500 mg PO BIDCC [facility] Last Admin: 11/28/18 17:08 Dose: 500 mg Montelukast Sodium (Singulair) 10 mg PO [facility] Last Admin: 11/27/18 21:06 Dose: 10 mg Oxycodone HCl (Oxycodone Immediate Release Tab) 10 mg PO Q6 PRN PRN Reason: Pain, severe (8-10) Last Admin: 11/28/18 17:09 Dose: 10 mg Oxycodone HCl (Oxycontin Extended Release Tab) 20 mg PO Q12 [facility] Rivaroxaban (Xarelto) 20 mg PO DAILY [facility] Last Admin: 11/28/18 09:27 Dose: 20 mg Rosuvastatin Calcium (Crestor) 5 mg PO [facility] Last Admin: 11/27/18 21:06 Dose: 5 mg - Labs Labs: 11/28/18 14:59 11/28/18 14:06 - Constitutional Appears: Well - Head Exam Head Exam: ATRAUMATIC, NORMAL INSPECTION, NORMOCEPHALIC - Eye Exam Eye Exam: EOMI, Normal appearance, PERRL Pupil Exam: NORMAL ACCOMODATION, PERRL - ENT Exam ENT Exam: Mucous Membranes Moist, Normal Exam - Neck Exam Neck Exam: Full ROM, Normal Inspection. absent: Lymphadenopathy - Respiratory Exam Respiratory Exam: Decreased Breath Sounds - Cardiovascular Exam Cardiovascular Exam: REGULAR RHYTHM, +S1, +S2 - GI/Abdominal Exam GI & Abdominal Exam: Soft, Diminished Bowel Sounds - Rectal Exam Rectal Exam: Deferred Assessment and Plan (1) Peripheral vascular disease Status: Acute (2) Left leg cellulitis Status: Acute (3) Ulcer of foot Status: Acute (4) Wound infection Status: Acute (5) Alcohol abuse Status: Acute (6) COPD exacerbation Status: Acute (7) Chronic pain syndrome Status: Acute (8) HTN (hypertension) Status: Acute (9) Venous insufficiency (chronic) (peripheral) Status: Acute - Assessment and Plan (Free Text) Plan: Zyloprim Tylenol 325 mg tab singulair pepcid oxyCONTIN ER tab oxycodone IR tab novolog glucophage feosol Ecotrin duoneb 3m/0.5mg (3 ml) crestor coreg fluticasone azactam medications reviewed labs reviewed vitals reviewed
--- NOTE | 2018-11-28 20:52 | CP.PCM.PN ---
Subjective - Date & Time of Evaluation Date of Evaluation: 11/28/18 Time of Evaluation: 10:00 - Subjective Subjective: denies fever or chills c/o pain awake alert NAD Objective - Vital Signs/Intake and Output Vital Signs (last 24 hours): Temp Pulse Resp BP Pulse Ox 98 F 81 20 138/70 97 11/28/18 16:42 11/28/18 16:42 11/28/18 16:42 11/28/18 17:09 11/28/18 16:42 Intake and Output: 11/28/18 11/29/18 18:59 06:59 Intake Total 340 Balance 340 - Medications Medications: Current Medications Acetaminophen (Tylenol 325mg Tab) 650 mg PO Q6H PRN PRN Reason: FOR MODERATE PAIN WITH OXY 10M Last Admin: 11/27/18 23:48 Dose: 650 mg Albuterol (Ventolin Hfa 90 Mcg/Actuation (8 G)) 2 puff IH RQ6 PRN PRN Reason: Shortness of Breath Albuterol/Ipratropium (Duoneb 3 Mg/0.5 Mg (3 Ml) Ud) 3 ml INH RQ6 [facility] Last Admin: 11/28/18 19:01 Dose: 3 ml Allopurinol (Zyloprim) 300 mg PO DAILY [facility] Last Admin: 11/28/18 09:27 Dose: 300 mg Alprazolam (Xanax) 1 mg PO BID PRN PRN Reason: Anxiety Aspirin (Ecotrin) 81 mg PO DAILY [facility] Last Admin: 11/28/18 09:27 Dose: 81 mg Carvedilol (Coreg) 12.5 mg PO BID [facility] Last Admin: 11/28/18 17:09 Dose: 12.5 mg Cyanocobalamin (Vitamin B12 100 Mcg Tab) 100 mcg PO DAILY [facility] Last Admin: 11/28/18 09:28 Dose: 100 mcg Ergocalciferol (Drisdol 50,000 Intl Units Cap) 1 cap PO QWK [facility] Last Admin: 11/28/18 09:36 Dose: 1 cap Famotidine (Pepcid) 20 mg PO BID [facility] Last Admin: 11/28/18 17:08 Dose: 20 mg Ferrous Sulfate (Feosol) 325 mg PO DAILY [facility] Last Admin: 11/28/18 09:27 Dose: 325 mg Fluticasone/Vilanterol (Breo Ellipta 100-25 Mcg Inh) 1 puff INH RQ24 [facility] Aztreonam 1 gm/ Sodium (Chloride) 100 mls @ 100 mls/hr IVPB Q8H [facility]; Protocol Last Admin: 11/28/18 16:30 Dose: 100 mls/hr Vancomycin/Sodium Chloride (Vancomycin 1 Gm/Ns 200 Ml) 1 gm in 200 mls @ 133.333 mls/hr IVPB Q12H [facility]; Protocol Stop: 12/02/18 17:01 Last Admin: 11/28/18 17:33 Dose: 133.333 mls/hr Insulin Aspart (Novolog) 0 unit SC ACHS [facility]; Protocol Last Admin: 11/28/18 17:10 Dose: Not Given Metformin HCl (Glucophage) 500 mg PO BIDCC [facility] Last Admin: 11/28/18 17:08 Dose: 500 mg Montelukast Sodium (Singulair) 10 mg PO [facility] Last Admin: 11/27/18 21:06 Dose: 10 mg Oxycodone HCl (Oxycodone Immediate Release Tab) 10 mg PO Q6 PRN PRN Reason: Pain, severe (8-10) Last Admin: 11/28/18 17:09 Dose: 10 mg Oxycodone HCl (Oxycontin Extended Release Tab) 20 mg PO Q12 [facility] Rivaroxaban (Xarelto) 20 mg PO DAILY [facility] Last Admin: 11/28/18 09:27 Dose: 20 mg Rosuvastatin Calcium (Crestor) 5 mg PO [facility] Last Admin: 11/27/18 21:06 Dose: 5 mg - Labs Labs: 11/28/18 14:59 11/28/18 14:06 - Constitutional Appears: No Acute Distress, Chronically Ill - Head Exam Head Exam: ATRAUMATIC, NORMAL INSPECTION, NORMOCEPHALIC - Eye Exam Eye Exam: EOMI, Normal appearance, PERRL Pupil Exam: NORMAL ACCOMODATION, PERRL - ENT Exam ENT Exam: Mucous Membranes Moist, Normal Exam - Neck Exam Neck Exam: Full ROM, Normal Inspection. absent: Lymphadenopathy - Respiratory Exam Respiratory Exam: Decreased Breath Sounds, Prolonged Expiratory Phase. absent: Respiratory Distress - Cardiovascular Exam Cardiovascular Exam: REGULAR RHYTHM, +S1, +S2. absent: Murmur - GI/Abdominal Exam GI & Abdominal Exam: Soft, Normal Bowel Sounds. absent: Tenderness - Rectal Exam Rectal Exam: Deferred - Exam Exam: NORMAL INSPECTION - Extremities Exam Extremities Exam: Full ROM, Normal Capillary Refill, Normal Inspection. absent: Joint Swelling, Pedal Edema - Back Exam Back Exam: NORMAL INSPECTION - Neurological Exam Neurological Exam: Alert, Awake, CN II-XII Intact, Oriented x3 - Psychiatric Exam Psychiatric exam: Normal Affect, Normal Mood - Skin Skin Exam: Dry. absent: Intact Additional comments: multiple ulcers over entire right lower extremity Assessment and Plan (1) Left leg cellulitis Status: Acute (2) COPD (chronic obstructive pulmonary disease) Status: Acute (3) Cellulitis Status: Acute (4) HTN (hypertension) Status: Acute (5) Venous insufficiency (chronic) (peripheral) Status: Acute (6) MRSA (methicillin resistant Staphylococcus aureus) infection Status: Acute (7) Pseudomonas aeruginosa infection Status: Acute - Assessment and Plan (Free Text) Assessment: cont IV antibiotics and wound care will need 2-3 weeks more rx Has MRSA enterococcus and pseudomonas + cultures IV rx renewed after checking labs and cultures
[2018-11-29] MEDS: oxyCODONE 10 mg Immediate Release Tab PO PRN ×5 (00:10→23:56)
[2018-11-29] MEDS: Aztreonam 1 GM in Sodium Chloride 0.9% 100 ML IVPB SCH ×4 (00:32→23:55)
[2018-11-29] MEDS: Albuterol-Ipratrop 3 mg / 0.5 (3 ml) UD INH SCH ×4 (01:34→20:10)
[2018-11-29] MEDS: Vancomycin 1 gm/NS 200 ml 1 GM/200 ML BAG IVPB SCH ×2 (04:37→17:37)
[2018-11-29] MEDS: (Novolog) Insulin Aspart, Recombinant 100 u/ml 10 ml vial SC SCH ×3 (08:17→17:39)
[2018-11-29] MEDS: oxyCODONE 20 mg ER Tab (oxyCONTIN) PO SCH ×2 (09:18→22:15)
--- NOTE | 2018-11-29 12:11 | CP.PCM.PN ---
Subjective - Date & Time of Evaluation Date of Evaluation: 11/29/18 Time of Evaluation: 13:08 - Subjective Subjective: Podiatry Progress Note- Dr. Singleton 58M seen and evaluated at bedside for left lower extremity nonhealing wounds with cellulitis - improving. Patient is AA0x3, in NAD. Denies acute overnight events. Reports has been working with physical therapy to walk with the walker. Reports pain with walking at the hips and thigh. Reports was seen by Dr. Berger team. Denies of pain to the leg. Denies nausea, fever, shortness of breath, chest pain or chills. Patient understands that he will be going to the OR next week for a debridement of leg ulcerations with application of graft and is agreeable. Objective - Vital Signs/Intake and Output Vital Signs (last 24 hours): Temp Pulse Resp BP Pulse Ox 98.8 F 86 20 128/80 95 11/29/18 07:42 11/29/18 07:42 11/29/18 07:42 11/29/18 09:17 11/29/18 07:42 Intake and Output: 11/29/18 11/29/18 06:59 18:59 Intake Total 300 540 Output Total 400 Balance -100 540 - Medications Medications: Current Medications Acetaminophen (Tylenol 325mg Tab) 650 mg PO Q6H PRN PRN Reason: FOR MODERATE PAIN WITH OXY 10M Last Admin: 11/27/18 23:48 Dose: 650 mg Albuterol (Ventolin Hfa 90 Mcg/Actuation (8 G)) 2 puff IH RQ6 PRN PRN Reason: Shortness of Breath Albuterol/Ipratropium (Duoneb 3 Mg/0.5 Mg (3 Ml) Ud) 3 ml INH RQ6 [facility] Last Admin: 11/29/18 08:05 Dose: 3 ml Allopurinol (Zyloprim) 300 mg PO DAILY [facility] Last Admin: 11/29/18 09:17 Dose: 300 mg Alprazolam (Xanax) 1 mg PO BID PRN PRN Reason: Anxiety Last Admin: 11/28/18 20:51 Dose: 1 mg Aspirin (Ecotrin) 81 mg PO DAILY [facility] Last Admin: 11/29/18 09:18 Dose: 81 mg Carvedilol (Coreg) 12.5 mg PO BID [facility] Last Admin: 11/29/18 09:17 Dose: 12.5 mg Cyanocobalamin (Vitamin B12 100 Mcg Tab) 100 mcg PO DAILY [facility] Last Admin: 11/29/18 09:18 Dose: 100 mcg Ergocalciferol (Drisdol 50,000 Intl Units Cap) 1 cap PO QWK [facility] Last Admin: 11/28/18 09:36 Dose: 1 cap Famotidine (Pepcid) 20 mg PO BID [facility] Last Admin: 11/29/18 09:18 Dose: 20 mg Ferrous Sulfate (Feosol) 325 mg PO DAILY [facility] Last Admin: 11/29/18 09:18 Dose: 325 mg Fluticasone/Vilanterol (Breo Ellipta 100-25 Mcg Inh) 1 puff INH RQ24 [facility] Aztreonam 1 gm/ Sodium (Chloride) 100 mls @ 100 mls/hr IVPB Q8H [facility]; Protocol Last Admin: 11/29/18 08:51 Dose: 100 mls/hr Vancomycin/Sodium Chloride (Vancomycin 1 Gm/Ns 200 Ml) 1 gm in 200 mls @ 133.333 mls/hr IVPB Q12H [facility]; Protocol Stop: 12/02/18 17:01 Last Admin: 11/29/18 04:37 Dose: 133.333 mls/hr Insulin Aspart (Novolog) 0 unit SC ACHS [facility]; Protocol Last Admin: 11/29/18 11:50 Dose: Not Given [facility] Last Admin: 11/29/18 08:51 Dose: 500 mg Montelukast Sodium (Singulair) 10 mg PO [facility] Last Admin: 11/28/18 21:16 Dose: 10 mg Oxycodone HCl (Oxycodone Immediate Release Tab) 10 mg PO Q6 PRN PRN Reason: Pain, severe (8-10) Last Admin: 11/29/18 12:02 Dose: 10 mg Oxycodone HCl (Oxycontin Extended Release Tab) 20 mg PO Q12 [facility] Last Admin: 11/29/18 09:18 Dose: 20 mg Rivaroxaban (Xarelto) 20 mg PO DAILY [facility] Last Admin: 11/29/18 09:17 Dose: 20 mg Rosuvastatin Calcium (Crestor) 5 mg PO [facility] Last Admin: 11/28/18 21:16 Dose: 5 mg - Labs Labs: 11/28/18 14:59 11/28/18 14:06 - Constitutional Appears: Well, Non-toxic, No Acute Distress - Extremities Exam Extremities Exam: absent: Calf Tenderness Additional comments: Dressing is clean dry and intact No strikethrough noted SAULO intact with compression provided CFT slightly delayed x 5 Temperature gradient WNL - Neurological Exam Neurological Exam: Alert, Awake, Oriented x3 - Psychiatric Exam Psychiatric exam: Normal Affect, Normal Mood Assessment and Plan - Assessment and Plan (Free Text) Assessment: 58 y/o male seen for bilateral lower extremity edema with left leg nonhealing ulcerations with cellulitis, improving Plans to go to the OR tomorrow at 8AM for debridement of left leg wound with application of wound Plan: Patient seen and evaluated at bedside with Dr. Singleton Labs, vitals, chart reviewed- afebrile, absent leukocytosis Wound culture L leg; pseudomonas, enterococcus MRSA detected on 11/23/18 Left leg continue abx per ID, Dr. Vázquez, recommendations appreciated Cleansed ulcerations with saline solution and dressed with xeroform, DSD, ker lix, SAULO Patient may WBAT Dr. Singleton plans on bringing patient Monday at 8:00AM for a debridement of left and application of graft with pulse lavage pending medical and cardio clearance Explained to patient in detail regarding surgical intervention inclduing benefits, complications, alternatives and risks, patient understands and agree. All questions/concerns addressed. Patient signed the consent for debridement of left and application of graft pulse lavage pending medical and cardio clearance Spoke to vascular, no vascular intervention at this time and continue with podiatry management. Recommend patient to go to [facility] for continue treatment of left leg ulcerations with cellulitis -improving Podiatry will continue to follow while patient is in house.
--- NOTE | 2018-11-29 12:13 | CP.PCM.PN ---
Subjective - Date & Time of Evaluation Date of Evaluation: 11/29/18 Time of Evaluation: 12:15 - Subjective Subjective: patient seen and examined today awake and alert denies nausea, fever, SOB, vomiting Objective - Vital Signs/Intake and Output Vital Signs (last 24 hours): Temp Pulse Resp BP Pulse Ox 98.8 F 86 20 128/80 95 11/29/18 07:42 11/29/18 07:42 11/29/18 07:42 11/29/18 09:17 11/29/18 07:42 Intake and Output: 11/29/18 11/29/18 06:59 18:59 Intake Total 300 540 Output Total 400 Balance -100 540 - Medications Medications: Current Medications Acetaminophen (Tylenol 325mg Tab) 650 mg PO Q6H PRN PRN Reason: FOR MODERATE PAIN WITH OXY 10M Last Admin: 11/27/18 23:48 Dose: 650 mg Albuterol (Ventolin Hfa 90 Mcg/Actuation (8 G)) 2 puff IH RQ6 PRN PRN Reason: Shortness of Breath Albuterol/Ipratropium (Duoneb 3 Mg/0.5 Mg (3 Ml) Ud) 3 ml INH RQ6 [facility] Last Admin: 11/29/18 08:05 Dose: 3 ml Allopurinol (Zyloprim) 300 mg PO DAILY [facility] Last Admin: 11/29/18 09:17 Dose: 300 mg Alprazolam (Xanax) 1 mg PO BID PRN PRN Reason: Anxiety Last Admin: 11/28/18 20:51 Dose: 1 mg Aspirin (Ecotrin) 81 mg PO DAILY [facility] Last Admin: 11/29/18 09:18 Dose: 81 mg Carvedilol (Coreg) 12.5 mg PO BID [facility] Last Admin: 11/29/18 09:17 Dose: 12.5 mg Cyanocobalamin (Vitamin B12 100 Mcg Tab) 100 mcg PO DAILY [facility] Last Admin: 11/29/18 09:18 Dose: 100 mcg Ergocalciferol (Drisdol 50,000 Intl Units Cap) 1 cap PO QWK [facility] Last Admin: 11/28/18 09:36 Dose: 1 cap Famotidine (Pepcid) 20 mg PO BID [facility] Last Admin: 11/29/18 09:18 Dose: 20 mg Ferrous Sulfate (Feosol) 325 mg PO DAILY [facility] Last Admin: 11/29/18 09:18 Dose: 325 mg Fluticasone/Vilanterol (Breo Ellipta 100-25 Mcg Inh) 1 puff INH RQ24 [facility] Aztreonam 1 gm/ Sodium (Chloride) 100 mls @ 100 mls/hr IVPB Q8H [facility]; Protocol Last Admin: 11/29/18 08:51 Dose: 100 mls/hr Vancomycin/Sodium Chloride (Vancomycin 1 Gm/Ns 200 Ml) 1 gm in 200 mls @ 133.333 mls/hr IVPB Q12H [facility]; Protocol Stop: 12/02/18 17:01 Last Admin: 11/29/18 04:37 Dose: 133.333 mls/hr Insulin Aspart (Novolog) 0 unit SC ACHS [facility]; Protocol Last Admin: 11/29/18 11:50 Dose: Not Given [facility] Last Admin: 11/29/18 08:51 Dose: 500 mg Montelukast Sodium (Singulair) 10 mg PO [facility] Last Admin: 11/28/18 21:16 Dose: 10 mg Oxycodone HCl (Oxycodone Immediate Release Tab) 10 mg PO Q6 PRN PRN Reason: Pain, severe (8-10) Last Admin: 11/29/18 12:02 Dose: 10 mg Oxycodone HCl (Oxycontin Extended Release Tab) 20 mg PO Q12 [facility] Last Admin: 11/29/18 09:18 Dose: 20 mg Rivaroxaban (Xarelto) 20 mg PO DAILY [facility] Last Admin: 11/29/18 09:17 Dose: 20 mg Rosuvastatin Calcium (Crestor) 5 mg PO [facility] Last Admin: 11/28/18 21:16 Dose: 5 mg - Labs Labs: 11/28/18 14:59 11/28/18 14:06 - Constitutional Appears: Well - Head Exam Head Exam: ATRAUMATIC, NORMAL INSPECTION, NORMOCEPHALIC - Eye Exam Eye Exam: EOMI, Normal appearance, PERRL Pupil Exam: NORMAL ACCOMODATION, PERRL - ENT Exam ENT Exam: Mucous Membranes Moist, Normal Exam - Neck Exam Neck Exam: Full ROM, Normal Inspection. absent: Lymphadenopathy - Respiratory Exam Respiratory Exam: Decreased Breath Sounds - Cardiovascular Exam Cardiovascular Exam: REGULAR RHYTHM, +S1, +S2 - GI/Abdominal Exam GI & Abdominal Exam: Soft, Diminished Bowel Sounds - Rectal Exam Rectal Exam: Deferred Assessment and Plan (1) Peripheral vascular disease Status: Acute (2) Left leg cellulitis Status: Acute (3) Ulcer of foot Status: Acute (4) Wound infection Status: Acute (5) Alcohol abuse Status: Acute (6) COPD exacerbation Status: Acute (7) Chronic pain syndrome Status: Acute (8) HTN (hypertension) Status: Acute (9) Venous insufficiency (chronic) (peripheral) Status: Acute - Assessment and Plan (Free Text) Plan: labs reviewed vitals reviewed medications reviewed azactam breo ellipta 100-25mcg inh coreg crestor drisdol 50,000 intl units cap duoneb 3mg/0.5mg ecotrin feosol glucophage novolog oxycodone IR tab oxycontin er tab pepcid singulair sodium chloride 0.9% 1,000 ml tylenol 325mg tab vancomycin 1gm/ns 200ml Discharge to [facility] Continue IV antibiotic as ordered by the ID
--- NOTE | 2018-11-29 17:46 | CP.PCM.PN ---
Objective - Vital Signs/Intake and Output Vital Signs (last 24 hours): Temp Pulse Resp BP Pulse Ox 98.2 F 88 20 114/68 96 11/29/18 16:00 11/29/18 16:00 11/29/18 16:00 11/29/18 17:36 11/29/18 16:00 Intake and Output: 11/29/18 11/29/18 06:59 18:59 Intake Total 300 1140 Output Total 400 Balance -100 1140 - Medications Medications: Current Medications Acetaminophen (Tylenol 325mg Tab) 650 mg PO Q6H PRN PRN Reason: FOR MODERATE PAIN WITH OXY 10M Last Admin: 11/27/18 23:48 Dose: 650 mg Albuterol (Ventolin Hfa 90 Mcg/Actuation (8 G)) 2 puff IH RQ6 PRN PRN Reason: Shortness of Breath Albuterol/Ipratropium (Duoneb 3 Mg/0.5 Mg (3 Ml) Ud) 3 ml INH RQ6 [facility] Last Admin: 11/29/18 13:30 Dose: 3 ml Allopurinol (Zyloprim) 300 mg PO DAILY [facility] Last Admin: 11/29/18 09:17 Dose: 300 mg Alprazolam (Xanax) 1 mg PO BID PRN PRN Reason: Anxiety Last Admin: 11/29/18 16:22 Dose: 1 mg Aspirin (Ecotrin) 81 mg PO DAILY [facility] Last Admin: 11/29/18 09:18 Dose: 81 mg Carvedilol (Coreg) 12.5 mg PO BID [facility] Last Admin: 11/29/18 17:36 Dose: 12.5 mg Cyanocobalamin (Vitamin B12 100 Mcg Tab) 100 mcg PO DAILY [facility] Last Admin: 11/29/18 09:18 Dose: 100 mcg Ergocalciferol (Drisdol 50,000 Intl Units Cap) 1 cap PO QWK [facility] Last Admin: 11/28/18 09:36 Dose: 1 cap Famotidine (Pepcid) 20 mg PO BID [facility] Last Admin: 11/29/18 17:36 Dose: 20 mg Ferrous Sulfate (Feosol) 325 mg PO DAILY [facility] Last Admin: 11/29/18 09:18 Dose: 325 mg Fluticasone/Vilanterol (Breo Ellipta 100-25 Mcg Inh) 1 puff INH RQ24 [facility] Aztreonam 1 gm/ Sodium (Chloride) 100 mls @ 100 mls/hr IVPB Q8H [facility]; Protocol Last Admin: 11/29/18 16:11 Dose: 100 mls/hr Vancomycin/Sodium Chloride (Vancomycin 1 Gm/Ns 200 Ml) 1 gm in 200 mls @ 133.333 mls/hr IVPB Q12H [facility]; Protocol Stop: 12/02/18 17:01 Last Admin: 11/29/18 17:37 Dose: 133.333 mls/hr Insulin Aspart (Novolog) 0 unit SC ACHS [facility]; Protocol Last Admin: 11/29/18 17:39 Dose: Not Given Metformin HCl (Glucophage) 500 mg PO BIDCC [facility] Last Admin: 11/29/18 17:36 Dose: 500 mg Montelukast Sodium (Singulair) 10 mg PO HS [facility] Last Admin: 11/28/18 21:16 Dose: 10 mg Oxycodone HCl (Oxycodone Immediate Release Tab) 10 mg PO Q6 PRN PRN Reason: Pain, severe (8-10) Last Admin: 11/29/18 17:41 Dose: 10 mg Oxycodone HCl (Oxycontin Extended Release Tab) 20 mg PO Q12 [facility] Last Admin: 11/29/18 09:18 Dose: 20 mg Rivaroxaban (Xarelto) 20 mg PO DAILY [facility] Last Admin: 11/29/18 09:17 Dose: 20 mg Rosuvastatin Calcium (Crestor) 5 mg PO HS [facility] Last Admin: 11/28/18 21:16 Dose: 5 mg - Labs Labs: 11/28/18 14:59 11/28/18 14:06 Assessment and Plan - Assessment and Plan (Free Text) Assessment: Patient admitted with cellulitis
[2018-11-30] MEDS: Albuterol-Ipratrop 3 mg / 0.5 (3 ml) UD INH SCH ×4 (01:22→19:13)
[2018-11-30] MEDS: Vancomycin 1 gm/NS 200 ml 1 GM/200 ML BAG IVPB SCH ×2 (04:04→19:31)
[2018-11-30] MEDS: oxyCODONE 10 mg Immediate Release Tab PO PRN ×3 (06:55→18:47)
[2018-11-30] MEDS: (Novolog) Insulin Aspart, Recombinant 100 u/ml 10 ml vial SC SCH ×4 (08:11→21:41)
[2018-11-30] MEDS: Aztreonam 1 GM in Sodium Chloride 0.9% 100 ML IVPB SCH ×2 (08:11→18:14)
[2018-11-30] MEDS: oxyCODONE 20 mg ER Tab (oxyCONTIN) PO SCH ×2 (09:35→21:13)
--- NOTE | 2018-11-30 13:00 | CP.PCM.PN ---
Subjective - Date & Time of Evaluation Date of Evaluation: 11/30/18 - Subjective Subjective: patient examined today no nausea no diarrhea no vomiting no SOB no fever Objective - Vital Signs/Intake and Output Vital Signs (last 24 hours): Temp Pulse Resp BP Pulse Ox 98.8 F 95 H 20 123/64 98 11/30/18 07:38 11/30/18 07:38 11/30/18 07:38 11/30/18 09:37 11/30/18 07:38 Intake and Output: 11/30/18 11/30/18 06:59 18:59 Intake Total 1140 Balance 1140 - Medications Medications: Current Medications Acetaminophen (Tylenol 325mg Tab) 650 mg PO Q6H PRN PRN Reason: FOR MODERATE PAIN WITH OXY 10M Last Admin: 11/27/18 23:48 Dose: 650 mg Albuterol (Ventolin Hfa 90 Mcg/Actuation (8 G)) 2 puff IH RQ6 PRN PRN Reason: Shortness of Breath Albuterol/Ipratropium (Duoneb 3 Mg/0.5 Mg (3 Ml) Ud) 3 ml INH RQ6 [facility] Last Admin: 11/30/18 07:55 Dose: 3 ml Allopurinol (Zyloprim) 300 mg PO DAILY [facility] Last Admin: 11/30/18 09:36 Dose: 300 mg Alprazolam (Xanax) 1 mg PO BID PRN PRN Reason: Anxiety Last Admin: 11/30/18 12:14 Dose: 1 mg Aspirin (Ecotrin) 81 mg PO DAILY [facility] Last Admin: 11/30/18 09:35 Dose: 81 mg Carvedilol (Coreg) 12.5 mg PO BID [facility] Last Admin: 11/30/18 09:37 Dose: 12.5 mg Cyanocobalamin (Vitamin B12 100 Mcg Tab) 100 mcg PO DAILY [facility] Last Admin: 11/30/18 09:35 Dose: 100 mcg Ergocalciferol (Drisdol 50,000 Intl Units Cap) 1 cap PO QWK [facility] Last Admin: 11/28/18 09:36 Dose: 1 cap Famotidine (Pepcid) 20 mg PO BID [facility] Last Admin: 11/30/18 09:36 Dose: 20 mg Ferrous Sulfate (Feosol) 325 mg PO DAILY [facility] Last Admin: 11/30/18 09:35 Dose: 325 mg Fluticasone/Vilanterol (Breo Ellipta 100-25 Mcg Inh) 1 puff INH RQ24 [facility] Aztreonam 1 gm/ Sodium (Chloride) 100 mls @ 100 mls/hr IVPB Q8H [facility]; Protocol Last Admin: 11/30/18 08:11 Dose: 100 mls/hr Vancomycin/Sodium Chloride (Vancomycin 1 Gm/Ns 200 Ml) 1 gm in 200 mls @ 133.333 mls/hr IVPB Q12H [facility]; Protocol Stop: 12/02/18 17:01 Last Admin: 11/30/18 04:04 Dose: 133.333 mls/hr Insulin Aspart (Novolog) 0 unit SC ACHS [facility]; Protocol Last Admin: 11/30/18 12:08 Dose: 1 unit Metformin HCl (Glucophage) 500 mg PO BIDCC [facility] Last Admin: 11/30/18 08:11 Dose: 500 mg Montelukast Sodium (Singulair) 10 mg PO [facility] Last Admin: 11/29/18 22:15 Dose: 10 mg Oxycodone HCl (Oxycodone Immediate Release Tab) 10 mg PO Q6 PRN PRN Reason: Pain, severe (8-10) Last Admin: 11/30/18 06:55 Dose: 10 mg Oxycodone HCl (Oxycontin Extended Release Tab) 20 mg PO Q12 [facility] Last Admin: 11/30/18 09:35 Dose: 20 mg Rivaroxaban (Xarelto) 20 mg PO DAILY [facility] Last Admin: 11/30/18 09:34 Dose: 20 mg Rosuvastatin Calcium (Crestor) 5 mg PO [facility] Last Admin: 11/29/18 22:15 Dose: 5 mg - Labs Labs: 11/28/18 14:59 11/28/18 14:06 - Constitutional Appears: Well - Head Exam Head Exam: ATRAUMATIC, NORMAL INSPECTION, NORMOCEPHALIC - Eye Exam Eye Exam: EOMI, Normal appearance, PERRL Pupil Exam: NORMAL ACCOMODATION, PERRL - ENT Exam ENT Exam: Mucous Membranes Moist, Normal Exam - Neck Exam Neck Exam: Full ROM, Normal Inspection. absent: Lymphadenopathy - Respiratory Exam Respiratory Exam: Decreased Breath Sounds - Cardiovascular Exam Cardiovascular Exam: REGULAR RHYTHM, +S1, +S2 - GI/Abdominal Exam GI & Abdominal Exam: Soft, Diminished Bowel Sounds - Rectal Exam Rectal Exam: Deferred Assessment and Plan (1) Peripheral vascular disease Status: Acute (2) Left leg cellulitis Status: Acute (3) Ulcer of foot Status: Acute (4) Wound infection Status: Acute (5) Alcohol abuse Status: Acute (6) COPD exacerbation Status: Acute (7) Chronic pain syndrome Status: Acute (8) HTN (hypertension) Status: Acute (9) Venous insufficiency (chronic) (peripheral) Status: Acute - Assessment and Plan (Free Text) Plan: patient evaluated at bedside today xray reviewed vitals and labs reviewed aztreonam 1gm breo ellipta 100-25 mcg inh coreg crestor drisdol 50,000 intl units cap duoneb 3mg/0.5mg (3ml) ud ecotrin feosol glucophage novolog oxycodone IR Tab oxycontin ER tab pepcid singulair tylenol 325mg tab vancomycin 1gm/ns 200 ml ventolin hfa 90 hcg/actuation 8g vitamin b12 100 mcg tab xanax xarelto zyloprim
--- NOTE | 2018-11-30 17:32 | RAD ---
Date of service: 11/30/2018 PROCEDURE: CHEST RADIOGRAPH, 1 VIEW HISTORY: PICC LINE SITE SWOLLEN COMPARISON: 11/23/2018 FINDINGS: LUNGS: Clear. PLEURA: No pneumothorax or pleural fluid seen. CARDIOVASCULAR: No aortic atherosclerotic calcification present. No congestive change. Right PICC catheter unchanged. OSSEOUS STRUCTURES: No significant abnormalities. VISUALIZED UPPER ABDOMEN: Normal. OTHER FINDINGS: None. IMPRESSION: No active disease.
--- NOTE | 2018-11-30 23:21 | CP.PCM.PN ---
Subjective - Date & Time of Evaluation Date of Evaluation: 11/30/18 Time of Evaluation: 11:00 - Subjective Subjective: Podiatry Progress Note- Dr. Singleton 58M seen and evaluated at bedside for left lower extremity nonhealing wounds with cellulitis - improving. Patient was seen with attending Dr. Singleton at bedside. Patient is seen resting comfortably in bed, in NAD, and AA0x3. Patient reports he was told he will be going to subacute soon. Patient denies of any pain to the lower extremity at this time. Denies calf pain and tenderness. Denies nausea, fever, shortness of breath, chest pains or chills Objective - Vital Signs/Intake and Output Vital Signs (last 24 hours): Temp Pulse Resp BP Pulse Ox 98.6 F 93 H 20 112/69 97 11/30/18 16:00 11/30/18 16:00 11/30/18 16:00 11/30/18 18:14 11/30/18 16:00 Intake and Output: 11/30/18 12/01/18 18:59 06:59 Intake Total 500 Balance 500 - Medications Medications: Current Medications Acetaminophen (Tylenol 325mg Tab) 650 mg PO Q6H PRN PRN Reason: FOR MODERATE PAIN WITH OXY 10M Last Admin: 11/27/18 23:48 Dose: 650 mg Albuterol (Ventolin Hfa 90 Mcg/Actuation (8 G)) 2 puff IH RQ6 PRN PRN Reason: Shortness of Breath Albuterol/Ipratropium (Duoneb 3 Mg/0.5 Mg (3 Ml) Ud) 3 ml INH RQ6 [facility] Last Admin: 11/30/18 19:13 Dose: Not Given Allopurinol (Zyloprim) 300 mg PO DAILY [facility] Last Admin: 11/30/18 09:36 Dose: 300 mg Alprazolam (Xanax) 1 mg PO BID PRN PRN Reason: Anxiety Last Admin: 11/30/18 16:36 Dose: 1 mg Aspirin (Ecotrin) 81 mg PO DAILY [facility] Last Admin: 11/30/18 09:35 Dose: 81 mg Carvedilol (Coreg) 12.5 mg PO BID [facility] Last Admin: 11/30/18 18:14 Dose: 12.5 mg Cyanocobalamin (Vitamin B12 100 Mcg Tab) 100 mcg PO DAILY [facility] Last Admin: 11/30/18 09:35 Dose: 100 mcg Ergocalciferol (Drisdol 50,000 Intl Units Cap) 1 cap PO QWK [facility] Last Admin: 11/28/18 09:36 Dose: 1 cap Famotidine (Pepcid) 20 mg PO BID [facility] Last Admin: 11/30/18 18:13 Dose: 20 mg Ferrous Sulfate (Feosol) 325 mg PO DAILY [facility] Last Admin: 11/30/18 09:35 Dose: 325 mg Fluticasone/Vilanterol (Breo Ellipta 100-25 Mcg Inh) 1 puff INH RQ24 [facility] Aztreonam 1 gm/ Sodium (Chloride) 100 mls @ 100 mls/hr IVPB Q8H [facility]; Protocol Last Admin: 11/30/18 18:14 Dose: 100 mls/hr Vancomycin/Sodium Chloride (Vancomycin 1 Gm/Ns 200 Ml) 1 gm in 200 mls @ 1 33.333 mls/hr IVPB Q12H [facility]; Protocol Stop: 12/02/18 17:01 Last Admin: 11/30/18 19:31 Dose: 133.333 mls/hr Insulin Aspart (Novolog) 0 unit SC ACHS [facility]; Protocol Last Admin: 11/30/18 21:41 Dose: Not Given Metformin HCl (Glucophage) 500 mg PO BIDCC [facility] Last Admin: 11/30/18 18:14 Dose: 500 mg Montelukast Sodium (Singulair) 10 mg PO HS [facility] Last Admin: 11/30/18 21:14 Dose: 10 mg Oxycodone HCl (Oxycodone Immediate Release Tab) 10 mg PO Q6 PRN PRN Reason: Pain, severe (8-10) Last Admin: 11/30/18 18:47 Dose: 10 mg Oxycodone HCl (Oxycontin Extended Release Tab) 20 mg PO Q12 [facility] Last Admin: 11/30/18 21:13 Dose: 20 mg Rivaroxaban (Xarelto) 20 mg PO DAILY [facility] Last Admin: 11/30/18 09:34 Dose: 20 mg Rosuvastatin Calcium (Crestor) 5 mg PO HS [facility] Last Admin: 11/30/18 21:14 Dose: 5 mg - Labs Labs: 11/28/18 14:59 11/28/18 14:06 - Constitutional Appears: Well, Non-toxic, No Acute Distress - Extremities Exam Extremities Exam: absent: Calf Tenderness Additional comments: Dressing is clean dry and intact No strikethrough noted SAULO intact with compression provided CFT slightly delayed x 5 Temperature gradient WNL - Neurological Exam Neurological Exam: Alert, Awake, Oriented x3 - Psychiatric Exam Psychiatric exam: Normal Affect, Normal Mood Assessment and Plan - Assessment and Plan (Free Text) Assessment: 58 y/o male seen for bilateral lower extremity edema with left leg nonhealing ulcerations with cellulitis, improving Plan: Patient seen and evaluated at bedside with Dr. Singleton Labs, vitals, chart reviewed- afebrile, absent leukocytosis Wound culture L leg; pseudomonas, enterococcus MRSA detected on 11/23/18 Left leg continue abx per ID, Dr. Vázquez, recommendations appreciated Surgery for next week is cancelled. Patient is stable for discharge to subacute Cellulitis and lower extremity ulcerations improving, Dr. Singleton will continue to monitor If surgery is needed, will plan for it in the future During this hospital stay, podiatry plans for no surgical intervention Will continue to provide local wound care Spoke to vascular, no vascular intervention at this time and continue with podiatry management. Recommend patient to go to [facility] for continue treatment of left leg ulcerations with cellulitis -improving Podiatry will continue to follow while patient is in house.
[2018-12-01] MEDS: Aztreonam 1 GM in Sodium Chloride 0.9% 100 ML IVPB SCH ×3 (00:01→16:39)
[2018-12-01] MEDS: oxyCODONE 10 mg Immediate Release Tab PO PRN ×3 (00:31→14:39)
[2018-12-01] MEDS: Albuterol-Ipratrop 3 mg / 0.5 (3 ml) UD INH SCH ×3 (01:27→13:54)
[2018-12-01] MEDS: Vancomycin 1 gm/NS 200 ml 1 GM/200 ML BAG IVPB SCH ×2 (05:03→17:50)
[2018-12-01] MEDS: (Novolog) Insulin Aspart, Recombinant 100 u/ml 10 ml vial SC SCH ×3 (07:42→16:39)
[2018-12-01] MEDS: oxyCODONE 20 mg ER Tab (oxyCONTIN) PO SCH (09:34)
--- NOTE | 2018-12-01 10:21 | CP.PCM.PN ---
Subjective - Date & Time of Evaluation Date of Evaluation: 12/01/18 - Subjective Subjective: patient seen and examined today no nausea, no fever, no diarrhea, no shortness of breath,no vomiting Objective - Vital Signs/Intake and Output Vital Signs (last 24 hours): Temp Pulse Resp BP Pulse Ox 98.0 F 99 H 20 116/65 100 12/01/18 08:18 12/01/18 08:18 12/01/18 08:18 12/01/18 09:23 12/01/18 08:18 Intake and Output: 12/01/18 12/01/18 06:59 18:59 Intake Total 1050 Output Total 450 Balance 600 - Medications Medications: Current Medications Acetaminophen (Tylenol 325mg Tab) 650 mg PO Q6H PRN PRN Reason: FOR MODERATE PAIN WITH OXY 10M Last Admin: 11/27/18 23:48 Dose: 650 mg Albuterol (Ventolin Hfa 90 Mcg/Actuation (8 G)) 2 puff IH RQ6 PRN PRN Reason: Shortness of Breath Albuterol/Ipratropium (Duoneb 3 Mg/0.5 Mg (3 Ml) Ud) 3 ml INH RQ6 [facility] Last Admin: 12/01/18 08:20 Dose: 3 ml Allopurinol (Zyloprim) 300 mg PO DAILY [facility] Last Admin: 12/01/18 09:23 Dose: 300 mg Alprazolam (Xanax) 1 mg PO BID PRN PRN Reason: Anxiety Last Admin: 12/01/18 04:15 Dose: 1 mg Aspirin (Ecotrin) 81 mg PO DAILY [facility] Last Admin: 12/01/18 09:23 Dose: 81 mg Carvedilol (Coreg) 12.5 mg PO BID [facility] Last Admin: 12/01/18 09:23 Dose: 12.5 mg Cyanocobalamin (Vitamin B12 100 Mcg Tab) 100 mcg PO DAILY [facility] Last Admin: 12/01/18 09:23 Dose: 100 mcg Ergocalciferol (Drisdol 50,000 Intl Units Cap) 1 cap PO QWK [facility] Last Admin: 11/28/18 09:36 Dose: 1 cap Famotidine (Pepcid) 20 mg PO BID [facility] Last Admin: 12/01/18 09:23 Dose: 20 mg Ferrous Sulfate (Feosol) 325 mg PO DAILY [facility] Last Admin: 12/01/18 09:23 Dose: 325 mg Fluticasone/Vilanterol (Breo Ellipta 100-25 Mcg Inh) 1 puff INH RQ24 [facility] Aztreonam 1 gm/ Sodium (Chloride) 100 mls @ 100 mls/hr IVPB Q8H [facility]; Protocol Last Admin: 12/01/18 09:22 Dose: 100 mls/hr Vancomycin/Sodium Chloride (Vancomycin 1 Gm/Ns 200 Ml) 1 gm in 200 mls @ 133.333 mls/hr IVPB Q12H [facility]; Protocol Stop: 12/02/18 17:01 Last Admin: 12/01/18 05:03 Dose: 133.333 mls/hr Insulin Aspart (Novolog) 0 unit SC ACHS [facility]; Protocol Last Admin: 12/01/18 07:42 Dose: Not Given [facility] Last Admin: 12/01/18 09:23 Dose: 500 mg Montelukast Sodium (Singulair) 10 mg PO [facility] Last Admin: 11/30/18 21:14 Dose: 10 mg Oxycodone HCl (Oxycodone Immediate Release Tab) 10 mg PO Q6 PRN PRN Reason: Pain, severe (8-10) Last Admin: 12/01/18 06:35 Dose: 10 mg Oxycodone HCl (Oxycontin Extended Release Tab) 20 mg PO Q12 [facility] Last Admin: 12/01/18 09:34 Dose: 20 mg Rivaroxaban (Xarelto) 20 mg PO DAILY [facility] Last Admin: 12/01/18 09:23 Dose: 20 mg Rosuvastatin Calcium (Crestor) 5 mg PO [facility] Last Admin: 11/30/18 21:14 Dose: 5 mg - Labs Labs: 11/28/18 14:59 11/28/18 14:06 - Constitutional Appears: Well - Head Exam Head Exam: ATRAUMATIC, NORMAL INSPECTION, NORMOCEPHALIC - Eye Exam Eye Exam: EOMI, Normal appearance, PERRL Pupil Exam: NORMAL ACCOMODATION, PERRL - ENT Exam ENT Exam: Mucous Membranes Moist, Normal Exam - Neck Exam Neck Exam: Full ROM, Normal Inspection. absent: Lymphadenopathy - Respiratory Exam Respiratory Exam: Decreased Breath Sounds - Cardiovascular Exam Cardiovascular Exam: REGULAR RHYTHM, +S1, +S2 - GI/Abdominal Exam GI & Abdominal Exam: Soft, Diminished Bowel Sounds - Rectal Exam Rectal Exam: Deferred Assessment and Plan (1) Peripheral vascular disease Status: Acute (2) Left leg cellulitis Status: Acute (3) Ulcer of foot Status: Acute (4) Wound infection Status: Acute (5) Alcohol abuse Status: Acute (6) COPD exacerbation Status: Acute (7) Chronic pain syndrome Status: Acute (8) HTN (hypertension) Status: Acute (9) Venous insufficiency (chronic) (peripheral) Status: Acute - Assessment and Plan (Free Text) Plan: discharge was hold yesterday as patient had left upper limb swelling patient is currently out of bed to the chair patient is sleeping in the chair patient is easily arousable follow-up with ID consult follow-up with the other people Hand x-ray done no evidence of acute fracture or dislocations duplex left upper extremity scan report is pending
--- NOTE | 2018-12-01 11:08 | CP.PCM.PN ---
Subjective - Date & Time of Evaluation Date of Evaluation: 12/01/18 Time of Evaluation: 11:06 - Subjective Subjective: Podiatry Progress Note- Dr. Singleton 58M seen and evaluated at bedside for left lower extremity nonhealing wounds with cellulitis - improving. AAOx3 in NAD. State she should be discharged to [facility] soon. Denies calf pain and tenderness. Denies nausea, fever, shortness of breath, chest pains or chills Objective - Vital Signs/Intake and Output Vital Signs (last 24 hours): Temp Pulse Resp BP Pulse Ox 98.0 F 99 H 20 116/65 100 12/01/18 08:18 12/01/18 08:18 12/01/18 08:18 12/01/18 09:23 12/01/18 08:18 Intake and Output: 12/01/18 12/01/18 06:59 18:59 Intake Total 1050 Output Total 450 Balance 600 - Medications Medications: Current Medications Acetaminophen (Tylenol 325mg Tab) 650 mg PO Q6H PRN PRN Reason: FOR MODERATE PAIN WITH OXY 10M Last Admin: 11/27/18 23:48 Dose: 650 mg Albuterol (Ventolin Hfa 90 Mcg/Actuation (8 G)) 2 puff IH RQ6 PRN PRN Reason: Shortness of Breath Albuterol/Ipratropium (Duoneb 3 Mg/0.5 Mg (3 Ml) Ud) 3 ml INH RQ6 [facility] Last Admin: 12/01/18 08:20 Dose: 3 ml Allopurinol (Zyloprim) 300 mg PO DAILY [facility] Last Admin: 12/01/18 09:23 Dose: 300 mg Alprazolam (Xanax) 1 mg PO BID PRN PRN Reason: Anxiety Last Admin: 12/01/18 04:15 Dose: 1 mg Aspirin (Ecotrin) 81 mg PO DAILY [facility] Last Admin: 12/01/18 09:23 Dose: 81 mg Carvedilol (Coreg) 12.5 mg PO BID [facility] Last Admin: 12/01/18 09:23 Dose: 12.5 mg Cyanocobalamin (Vitamin B12 100 Mcg Tab) 100 mcg PO DAILY [facility] Last Admin: 12/01/18 09:23 Dose: 100 mcg Ergocalciferol (Drisdol 50,000 Intl Units Cap) 1 cap PO QWK [facility] Last Admin: 11/28/18 09:36 Dose: 1 cap Famotidine (Pepcid) 20 mg PO BID [facility] Last Admin: 12/01/18 09:23 Dose: 20 mg Ferrous Sulfate (Feosol) 325 mg PO DAILY [facility] Last Admin: 12/01/18 09:23 Dose: 325 mg Fluticasone/Vilanterol (Breo Ellipta 100-25 Mcg Inh) 1 puff INH RQ24 [facility] Aztreonam 1 gm/ Sodium (Chloride) 100 mls @ 100 mls/hr IVPB Q8H [facility]; Protocol Last Admin: 12/01/18 09:22 Dose: 100 mls/hr Vancomycin/Sodium Chloride (Vancomycin 1 Gm/Ns 200 Ml) 1 gm in 200 mls @ 133.333 mls/hr IVPB Q12H [facility]; Protocol Stop: 12/02/18 17:01 Last Admin: 12/01/18 05:03 Dose: 133.333 mls/hr Insulin Aspart (Novolog) 0 unit SC ACHS [facility]; Protocol Last Admin: 12/01/18 07:42 Dose: Not Given [facility] Last Admin: 12/01/18 09:23 Dose: 500 mg Montelukast Sodium (Singulair) 10 mg PO [facility] Last Admin: 11/30/18 21:14 Dose: 10 mg Oxycodone HCl (Oxycodone Immediate Release Tab) 10 mg PO Q6 PRN PRN Reason: Pain, severe (8-10) Last Admin: 12/01/18 06:35 Dose: 10 mg Oxycodone HCl (Oxycontin Extended Release Tab) 20 mg PO Q12 [facility] Last Admin: 12/01/18 09:34 Dose: 20 mg Rivaroxaban (Xarelto) 20 mg PO DAILY [facility] Last Admin: 12/01/18 09:23 Dose: 20 mg Rosuvastatin Calcium (Crestor) 5 mg PO [facility] Last Admin: 11/30/18 21:14 Dose: 5 mg - Labs Labs: 11/28/18 14:59 11/28/18 14:06 - Constitutional Appears: Well, Non-toxic, No Acute Distress - Head Exam Head Exam: ATRAUMATIC, NORMOCEPHALIC - Eye Exam Eye Exam: Normal appearance Pupil Exam: NORMAL ACCOMODATION - ENT Exam ENT Exam: Mucous Membranes Moist - Respiratory Exam Respiratory Exam: Clear to Ausculation Bilateral, NORMAL BREATHING PATTERN - Cardiovascular Exam Cardiovascular Exam: REGULAR RHYTHM, +S1, +S2 - Extremities Exam Additional comments: LE focused exam: Vasc: DP/PT pulses non-palpable secondary to B/L LE edema. CFT < 3 seconds to all digits. Skin temperature increased B/L from proximal to distal. Severe, pitting edema noted to B/L LE, left worse than right Neuro: Gross intact, protective sensation slightly diminished B/L Derm: Hyperpigmentation noted to B/L legs consistent with hemosiderin deposition. Multiple open indurated ulcerations noted to the left lower extremity. A large ulceration measuring approximately 5cm x 7 cm at the posterior aspect of the lower 1/3 leg with wound base mainly fibrotic. All wound bases are mainly fibrotic with sloughing noted. Weeping drainage with odor noted to the left lower extremity. Erythema present - improved. No abscess or fluctance noted MSK: Pain on palpation of B/L LE , Left >Right - Neurological Exam Neurological Exam: Alert, Awake, Oriented x3 Assessment and Plan - Assessment and Plan (Free Text) Assessment: 58 y/o male seen for bilateral lower extremity edema with left leg nonhealing ulcerations with cellulitis, improving Plan: Patient seen and evaluated at bedside with Dr. Singleton Labs, vitals, chart reviewed- afebrile, absent leukocytosis Wound culture L leg; pseudomonas, enterococcus MRSA detected on 11/23/18 Left leg continue abx per ID, Dr. Vázquez, recommendations appreciated No surgical intervention at this time per podiatry. Spoke to vascular, no vascular intervention at this time and continue with podiatry management. Recommend patient to go to [facility] for continue treatment of left leg ulcerations with cellulitis Podiatry will continue to follow while patient is in house.
--- NOTE | 2018-12-01 16:09 | RAD ---
PROCEDURE: Right Hand Radiographs. HISTORY: RIGHT UPPER ARM SWELLING COMPARISON: None. TECHNIQUE: 3 views obtained. FINDINGS: BONES: No evidence of acute fracture. Deformity in the 5th metacarpal bone likely due to old fracture. There is also deformity in the distal right radius bone which also likely due to old fracture. JOINTS: Arthritic degenerative changes are noted. SOFT TISSUES: Diffuse soft tissue swelling is also noted. OTHER FINDINGS: None. IMPRESSION: No evidence of acute fracture or dislocation.
[2018-12-01 16:19] VITALS: BP 103/68; PULSE 94; TEMP 97.8; O2SAT 96
--- NOTE | 2018-12-03 09:10 | VASCLAB ---
Date of service: 12/01/2018 PROCEDURE: Right Upper Extremity Venous Duplex Exam HISTORY: right upper arm PICC line sight swollen PRIORS: None. TECHNIQUE: Right upper extremity, internal jugular, subclavian, axillary, brachial, ulnar, radial, basilic and upper cephalic veins were evaluated. Flow was assessed with color Doppler, compressibility, assessment of phasic flow and augmentation response. Report prepared by ANNELIESE Allen FINDINGS: RIGHT: 1. Internal Jugular: 1.1. Compressibility - Fully compressible: Thrombus - None : Flow - Phasic: Augmentation -Normal: Reflux - None. 2. Subclavian: 2.1. Compressibility - Fully compressible: Thrombus - None : Flow - Phasic: Augmentation -Normal: Reflux - None. 3. Axillary: 3.1. Compressibility - Fully compressible: Thrombus - None : Flow - Phasic: Augmentation -Normal: Reflux - None. 4. Brachial: 4.1. Unable to examine due to picc line. 5. Ulnar: 5.1. Compressibility - Fully compressible: Thrombus - None: Flow - Phasic: Augmentation -Normal: Reflux - None. 6. Radial: 6.1. Compressibility - Fully compressible: Thrombus - None: Flow - Phasic: Augmentation - Normal: Reflux - None. 7. Cephalic: 7.1. Compressibility - Fully compressible: Thrombus - None: Flow - Phasic: Augmentation -Normal: Reflux - None. 8. Basilic: (forearm) 8.1. Compressibility - Fully compressible: Thrombus - None: Flow - Phasic: Augmentation -Normal: Reflux - None. OTHER FINDINGS: Right: None. IMPRESSION: Right: No evidence of vein thrombosis of the right upper extremity with excellent venous flow. Normal valve function noted of the right side. Normal venous flow noted in the left internal jugular and left subclavian veins.
== END 2018-12-01 20:35 | DRG 294 ==
LOC: C.ER 14:16 → C.9E 15:46 → C.3T 16:27 → OBSVTOIN 11-22 16:36 → C.3T 12-01 08:25
PROVIDERS: ADMIT Internal Medicine Nephrology; ATTEND Internal Medicine Nephrology
PROC: 02HV33Z Insertion of Infusion Device into Superior Vena Cava, Percutaneous Approach (ICD-10-PCS; principal; 2018-11-28)
PROC: B548ZZA Ultrasonography of Superior Vena Cava, Guidance (ICD-10-PCS; 2018-11-28)
DX: E11.622 Type 2 diabetes mellitus with other skin ulcer (principal); E11.621 Type 2 diabetes mellitus with foot ulcer; L97.829 Non-pressure chronic ulcer of other part of left lower leg with unspecified severity; L03.116 Cellulitis of left lower limb; I13.0 Hypertensive heart and chronic kidney disease with heart failure and stage 1 through stage 4 chronic kidney disease, or unspecified chronic kidney disease; L97.509 Non-pressure chronic ulcer of other part of unspecified foot with unspecified severity; L03.115 Cellulitis of right lower limb; I87.2 Venous insufficiency (chronic) (peripheral); B96.5 Pseudomonas (aeruginosa) (mallei) (pseudomallei) as the cause of diseases classified elsewhere; E11.51 Type 2 diabetes mellitus with diabetic peripheral angiopathy without gangrene; E11.22 Type 2 diabetes mellitus with diabetic chronic kidney disease; B95.62 Methicillin resistant Staphylococcus aureus infection as the cause of diseases classified elsewhere; N18.9 Chronic kidney disease, unspecified; J43.9 Emphysema, unspecified; I50.9 Heart failure, unspecified; G47.33 Obstructive sleep apnea (adult) (pediatric); G89.4 Chronic pain syndrome; F10.10 Alcohol abuse, uncomplicated; Z85.51 Personal history of malignant neoplasm of bladder; Z87.01 Personal history of pneumonia (recurrent); Z87.891 Personal history of nicotine dependence; Z79.4 Long term (current) use of insulin